=== PATIENT | female | born 1950 | race Caucasian/White ===

== ENCOUNTER 2023-08-22 09:24 | Outpatient (OUT) | payer MEDICARE, OTHER, SELFPAY ==
--- NOTE | 2023-08-22 09:32 | XR_ITS ---
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 FINDINGS: SPINE ANALYSIS: Average bone mineral density is 1.176 g/cm2. T-score (standard deviation relative to young adult mean): 0.0 . +3.8% change since prior study. HIP ANALYSIS: Lowest bone mineral density is within the right femoral neck, 0.884 g/cm2. T-score (standard deviation relative to young adult mean): -1.1 . +3.8% change since prior study. XR/XR DEXA axial skeleton IMPRESSION: World [employer] Organization Classification: Osteopenia - Moderate Fracture Risk Electronically authenticated by: CARITO BAY Date: 08/22/2023 10:25
--- NOTE | 2023-08-22 09:32 | MM_ITS ---
Patient: JOSE DAI Exam Date: 08/22/2023 : 1950 Gender:F Ordering : Non-Staff Physician Admission #: [id number] Family : Order #: [id number] CLICK HERE TO VIEW EXAM RADIOLOGY REPORT PROCEDURE: MM TOMOSYNTHESIS SCREENING BI COMPARISON: MG MAMM SCREEN 3D BRIANNE CAD, 08/09/2022. MG MAMM SCREEN 3D BRIANNE CAD, 05/25/2021. MG MAMM SCREEN BRIANNE W CAD, 05/19/2020. MG MAMM BRIANNE SCRN W CAD DIG, 11/19/2013. INDICATIONS: Screening Calculator Name NCI Breast Cancer Risk Assessment Tool 5 Year Breast Cancer Risk 1.40% Lifetime Breast Cancer Risk 3.40% Personal Breast Cancer No Personal Ovarian Cancer No Treatments None Family Cancers None LOCATION: [facility] BREAST COMPOSITION: Scattered areas fibroglandular density. FINDINGS: DIAGNOSTIC CATEGORY 2--BENIGN FINDING: RIGHT BREAST: No significant suspicious finding. Scattered benign-appearing nodules are present. No significant change has occurred. LEFT BREAST: No significant suspicious finding. Scattered benign-appearing nodules are present. No significant change has occurred. RECOMMENDATIONS: ROUTINE MAMMOGRAM AND CLINICAL EVALUATION IN 12 MONTHS. PLEASE NOTE: A NORMAL MAMMOGRAM DOES NOT EXCLUDE THE POSSIBILITY OF BREAST CANCER. A CLINICALLY SUSPICIOUS PALPABLE LUMP SHOULD BE BIOPSIED. Dictated by: Trent Bryan M.D. on 08/23/2023 at 10:10 Approved by: Trent Bryan M.D. on 08/23/2023 at 10:16
== END 2023-08-22 09:25 | disposition home or self-care (01) ==
LOC: MAMMO 09:24
DX: Z12.31 Encounter for screening mammogram for malignant neoplasm of breast (principal); M85.89 Other specified disorders of bone density and structure, multiple sites
CPT/HCPCS: 77063; 77067; 77080

== ENCOUNTER 2023-10-09 07:46 | Outpatient (RCR) | payer MEDICARE, OTHER, SELFPAY | END 2023-11-24 08:00 | disposition home or self-care (01) | LOC: PT 07:46 | DX: M76.61 Achilles tendinitis, right leg (principal) | CPT/HCPCS: 97110; 97112; 97140; 97162 ==

== ENCOUNTER 2024-05-11 06:50 | Outpatient (OUT) | payer MEDICARE, OTHER, SELFPAY ==
--- OUTSIDE RECORDS SUMMARY | 2024-05-11 06:52 | XMS_ITS | CCD ---
Author Organization [facility] Care Team Providers Care Manager Post Name Role Phone Rupa FINK Primary Care Physician Rupa Fink Primary Care Provider NOEMI Barajas Attending Provider [phone] Karl Dipti Unavailable RUPA FINK Primary Care Unavailable RUPA FINK Admitting Unavailable RUPA FINK Attending Unavailable RUPA FINK Consulting Unavailable RUPA FINK Primary Care Unavailable RUPA FINK Admitting Unavailable RUPA FINK Attending Unavailable RUPA FINK Consulting Unavailable RUPA FINK Primary Care Unavailable DR MARII HUSSEIN Consulting Unavailable RUPA FINK Admitting Unavailable RUPA FINK Attending Unavailable RUPA FINK Consulting Unavailable ALEKS, RUPA Primary Care Unavailable ISELA TINEO Admitting Unavailable ISELA TINEO Attending Unavailable Ellen Butt Primary Care Physician Dipti Barajas Attending Unavailable Karina Barajasgy Admitting Unavailable Ellen Butt Primary Care UnavailBello Holman MD Primary Care Provider FRANKIE VIVAR Attending Unavailable GIULIANO GARCIA Referring Unavailable GIULIANO GARCIA Attending Unavailable FRANKIE VIVAR Attending Unavailable GIULIANO GARCIA Attending Unavailable FRANKIE VIVAR Attending Unavailable FRANKIE VIVAR Attending Unavailable FRANKIE VIVAR Attending Unavailable Ellen Butt Attending Unavailab le Ellen Butt Attending Unavailab Ellen Bentley Attending Unavailab Isela Dominguez Attending Unavailable sIela Tineo Admitting Unavailable Ellen Butt Referring Unavailab yaquelin Daquan, Ellen Bonilla Admitting Unavailab le Ellen neri Attending Unavailab le Daquan, Ellen Bonilla Attending Unavailab le Misshalle, Ellen Bonilla Attending Unavailab le Missler, Ellen Bonilla Attending Unavailab le Allergies Allergy Classification Reported Allergen(s) Allergy Type Date of Onset Reaction(s) Facility (18 sources) Alendronate; Translations: [alendronate] Drug Allergy 10-02-2018 Weal (disorder), Cutaneous eruption (morphologic abnormality), Hives, Rash [facility] (2 sources) Alendronate; Translations: [alendronate sodium] Drug Allergy 10-02-2018 Redness of Skin [facility] Medications Current Medications Medication Drug Class(es) Dates Sig (Normalized) Sig (Original) acetaminophen 250 mg / aspirin 250 mg / caffeine 65 mg oral tablet (1 source) Platelet Aggregation Inhibitor, Nonsteroidal Anti-inflammatory Drug, Central Nervous System Stimulant, Methylxanthine Start: 10-02-2018 take 2 tablets by mouth every four to six hours Aspirin-Acetamino phen-Caffeine (Excedrin Extra Strength) 250-250-65 mg Tablet Active 2 TAB PO EVERY 4-6 HOURS October 02, 2018 1:00am ascorbic acid 60 mg / cholecalciferol 0.01 mg / folic acid 0.3 mg / niacin 13.5 mg / riboflavin 1.2 mg / sodium fluoride 0.55 mg / thiamine 1.05 mg / vitamin a 0.75 mg / vitamin b12 0.0045 mg / vitamin b6 1.05 mg / vitamin e 6.75 mg chewable tablet (3 sources) Nicotinic Acid, Vitamin A, Vitamin B12, Vitamin D, Vitamin C Pediatric Multivitamins-Fl (MultiVitamin + Fluoride) 0.25 MG chewable tablet Multivitamin 0 Active aspirin 325 mg delayed release oral tablet (12 sources) Platelet Aggregation Inhibitor, Nonsteroidal Anti-inflammatory Drug Start: 11-14-2020 take 1 tablet by mouth once daily as needed for pain aspirin 325 mg Oral EC Tab 325 mg = 1 tab(s), Oral, Daily, PRN as needed for pain Start Date: 11/14/20 Status: Ordered Start: 11-14-2020 take 1 tablet by leanna th once daily as needed for pain aspirin 325 mg Oral EC Tab 325 mg = 1 tab(s), Oral, Daily, PRN as needed for pain Start Date: 11/14/20 Status: Ordered atorvastatin 10 mg oral tablet (14 sources) HMG-CoA Reductase Inhibitor Start: 03-12-2022 End: 03-21-2024 take 1 tablet by mouth once daily atorvastatin 10 mg Tab 10 mg = 1 tab(s), Oral, Daily, X 90 day(s), # 90 tab(s), Refills(s) 3, Pharmacy: [facility]/pharmacy #[id number], 166, cm, 03/27/23 8:21:00 EDT, Height/Length Dosing, 116.1, kg, 03/27/23 8:21:00 EDT, Weight Dosing Start Date: 03/27/23 Stop Date: 03/21/24 Status: Ordered Atorvastatin Sonny cium Active bismuth subsalicylate (4 sources) Bismuth Start: 04-13-2019 Maalox Total S tomach Relief mg, Oral, QID, [id number] 5ML (Alum & Mag Hydroxide-Simeth) 2-4 tsps bid daily prn, Refills(s) 0 Start Date: 04/13/19 Status: Ordered Calcium (2 sources) Phosphate Binder, Calcium Calcium Active Calcium Carb-Cholecalciferol (CALCIUM + VITAMIN D3 PO) (3 sources) Calcium Carb-Cholecalciferol (CALCIUM + VITAMIN D3 PO) Calcium + Vitamin D3 0 Active calcium carbonate 1500 mg / cholecalciferol 200 unt oral capsule (16 sources) Vitamin D Start: 018 take 1 capsule by mouth once daily Calcium Carbonate-Vitamin D3 (Calcium 600 + D(3)) 600 mg calcium- 200 unit Capsule Active 1 CAP PO Daily October 02, 2018 1:00am Start: 10-17-2010 take 1 tablet by leanna th once daily calcium (as carbonate)-vitamin D 500 mg-200 intl units oral tablet 1 tab(s), Oral, Daily, Refill(s) 0 Start Date: 10/17/10 Status: Ordered Calcium Carb-Cho lecalciferol (Calcium + Vitamin D3) 500-10 MG-MCG chewable tablet Calcium + Vitamin D3 0 Active dexamethasone 1 mg/ml / tobramycin 3 mg/ml ophthalmic suspension (3 sources) Aminoglycoside Antibacterial, Corticosteroid Start: 08-08-2023 take 1 drop(s) into the eye(s) every three hours, then take 1 drop(s) into the eye(s) four times daily tobramycin-dexAMETHasone (Tobradex) ophthalmic suspension INSTILL 1 DROP INTO RIGHT EYE EVERY 3 HOURS FOR 1 DAYS THEN 1 DROP 4 TIMES A DAY 0 08/08/2023 Active famotidine 40 mg oral tablet (9 sources) Histamine-2 Receptor Antagonist Start: 04-24-2024 take 1 tablet by mouth once daily famotidine 40 mg Tab 40 mg = 1 tab(s), Oral, Daily, # 90 tab(s), Refills(s) 3, Pharmacy: [facility]/pharmacy #[id number], 162.6, cm, 04/08/24 10:22:00 EDT, Height/Length Dosing, 112.7, kg, 04/08/24 10:22:00 EDT, Weight Dosing Start Date: 04/24/24 Status: Ordered Start: 02-24-2024 take 1 tablet by leanna once daily famotidine 40 mg Tab 40 mg = 1 tab(s), Oral, Daily, # 90 tab(s), Refills(s) 3, Pharmacy: [facility]/pharmacy #[id number], 162.6, cm, 01/29/24 8:59:00 EST, Height/Length Dosing, 116.1, kg, 01/29/24 8:59:00 EST, Weight Dosing Start Date: 02/24/24 Status: Ordered Start: 10-23-2023 take 1 tablet by leanna th once daily famotidine 40 mg Tab 40 mg = 1 tab(s), Oral, Daily, # 90 tab(s), Refills(s) 1, Pharmacy: [facility]/pharmacy #[id number], 166, cm, 12/09/23 9:04:00 EST, Height/Length Dosing, 116.8, kg, 12/09/23 9:04:00 EST, Weight Dosing Start Date: 12/11/23 Status: Ordered Fish Oils (17 sources) Start: 10-31-2020 take 1 capsule by mo uth once daily Fish Oil 1200 mg oral capsule 1,200 mg = 1 cap(s), Oral, Daily, Prophylaxis Start Date: 10/31/20 Status: Ordered omega-3 (FISH OI L) 300 MG capsule Fish Oil 0 Active Fish Oil Active Glucosamine (14 sources) Start: 03-27-2023 Glucosamine HC l (GLUCOSAMINE PO) Refills(s) 0 0 03/27/2023 Active Start: 03-27-2023 glucosamine Re fills(s) 0 Start Date: 03/27/23 Status: Ordered Glucosamine 500 MG capsule Glucosamine 0 Active Glucosamine Chond MSM Formul a (2 sources) Glucosamine Volodymyr d MSM Formula Active ibuprofen 200 mg oral tablet (1 source) Nonsteroidal Anti-inflammatory Drug Start: 10-02-2018 Ibuprofen Active 2 TAB PO every 6 to 8 hours October 02, 2018 1:00am losartan potassium 25 mg oral tablet (18 sources) Angiotensin 2 Receptor Katia Start: 04-24-2024 take 1 tablet by mouth once daily losartan 25 mg Tab 25 mg = 1 tab(s), Oral, Daily, # 90 tab(s), Refills(s) 3, Pharmacy: [facility]/pharmacy #[id number], 162.6, cm, 04/08/24 10:22:00 EDT, Height/Length Dosing, 112.7, kg, 04/08/24 10:22:00 EDT, Weight Dosing Start Date: 04/24/24 Status: Ordered Start: 10-02-2018 End: 03-21-2024 take 1 tablet by mouth once daily losartan 25 mg Tab 25 mg = 1 tab(s), Oral, Daily, # 90 tab(s), Refills(s) 3, Pharmacy: [facility]/pharmacy #[id number], 162.6, cm, 01/29/24 8:59:00 EST, Height/Length Dosing, 116.1, kg, 01/29/24 8:59:00 EST, Weight Dosing Start Date: 02/24/24 Status: Ordered Losartan Potassi um Active Multiple Vitamin (MULTIVITAMIN ADULT PO) (3 sources) Multiple Vitamin (MULTIVITAMIN ADULT PO) Multivitamin 0 Active Kslrurtf-Hrb-Nbutk Acid-Vit K (Multi For Her 50 Plus) 400-80 mcg Capsule (1 source) Start: 10-02-20 18 take 50-400 capsules by mouth once daily Hywklshf-Qxp-Yfezb Acid-Vit K (Multi For Her 50 Plus) 400-80 mcg Capsule Active 1 CAP PO Daily October 02, 2018 1:00am Multivitamin, Therapeutic w/ Minerals (12 sources) Start: 10-17-20 10 take 1 tablet by mouth once daily Multivitamin, Therapeutic w/ Minerals 1 tab, Oral, Daily, Refill(s) 0 Start Date: 10/17/10 Status: Ordered omeprazole 40 mg delayed release oral capsule (18 sources) Proton Pump Inhibitor Start: 02-26-20 End: 06-06-20 24 take 1 capsule by mouth once daily omeprazole 40 mg Cap-DR 40 mg = 1 cap(s), Oral, Daily, # 90 cap(s), Refills(s) 4, Pharmacy: [facility]/pharmacy #[id number], 162.6, cm, 04/08/24 10:22:00 EDT, Height/Length Dosing, 112.7, kg, 04/08/24 10:22:00 EDT, Weight Dosing Start Date: 04/24/24 Status: Ordered Start: 04-02-2022 take 1 capsule by [facility] once daily omeprazole 40 mg Cap-DR 40 mg = 1 cap(s), Oral, Daily, # 90 cap(s), Refills(s) 3, Pharmacy: [facility]/pharmacy #[id number], 165, cm, 10/02/21 8:58:00 EST, Height/Length Dosing, 115, kg, 10/02/21 8:58:00 EST, Weight Dosing Start Date: 04/02/22 Status: Ordered Start: 10-02-2018 End: 10-02-2018 take 40 mg by mouth once daily Omeprazole Discontinued 40 MG PO Daily October 02, 2018 1:00am October 02, 2018 11:20am Start: 10-02-2018 take 80 mg by mouth once daily Omeprazole Active 80 MG PO Daily October 02, 2018 1:00am Omeprazole Activ e omeprazole 40 mg Cap-DR (1 source) Start: 04-02-2022 take 1 capsule by mouth once daily omeprazole 40 mg Cap-DR 40 mg = 1 cap(s), Oral, Daily, # 90 cap(s), Refills(s) 3, Pharmacy: [facility]/pharmacy #[id number], 165, cm, 10/02/21 8:58:00 EST, Height/Length Dosing, 115, kg, 10/02/21 8:58:00 EST, Weight Dosing Start Date: 04/02/22 Status: Ordered Completed/Discontinued Medications Medication Drug Class(es) Dates Sig (Normalized) Sig (Original) betamethasone 3 mg/ml / betamethasone acetate 3 mg/ml injectable suspension (8 sources) Corticosteroid Start: 12-27-2023 End: 12-27-2023 betamethasone acetate-betamethason e sodium phosphate (C[place]) injection 12 mg Multi Complete (2 sources) Multi Complete A ctive Problems Active Problems Problem Classification Problem Date Documented Da te Episodic/Chronic Aortic; peripheral; and visceral artery aneurysms (12 sources) Aneurysm of splenic artery 10-02-2021 Chronic Cataract (3 sources) 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; Translations: [Other secondary cataract, right eye] Onset: 3 05-07-2023 Chronic Congestive heart failure; nonhypertensive (7 sources) Diastolic dysfunction 04-19-2023 Chronic Diabetes mellitus without complication (20 sources) Prediabetes; Translations: [Prediabetes] Onset: 2 Episodic Disorders of lipid metabolism (16 sources) Hyperlipidemia; Translations: [Hyperlipidemia, unspecified] Onset: 2 Chronic Esophageal disorders (8 sources) Gastroesophageal reflux disease without esophagitis; Translations: [Gastro-esophageal reflux disease without esophagitis] Onset: 3 Chronic Essential hypertension (20 sources) Essential hypertension; Translations: [Essential (primary) hypertension] Onset: 1 Chronic Heart valve disorders (8 sources) Systolic murmur 03-27-2023 Episodic Hypertension with complications and secondary hypertension (4 sources) Hypertensive heart disease with heart failure; Translations: [HTN HEART DISEASE W/HEART FAIL] Onset: 2 Chronic Immunizations and screening for infectious disease (1 source) Viral screening status; Translations: [Encounter for screening for other viral diseases] Onset: 4 Episodic Nutritional deficiencies (15 sources) Vitamin D deficiency; Translations: [Vitamin D deficiency, unspecified] Onset: 2 Chronic Osteoarthritis (18 sources) Osteoarthritis; Translations: [Unspecified osteoarthritis, unspecified site] Onset: 2 Chronic Other aftercare (1 source) Long-term current use of drug therapy; Translations: [Other care home (current) drug therapy] Onset: 4 Episodic Other and ill-defined heart disease (1 source) Heart disease; Translations: [Other ill-defined heart diseases] Onset: 3 Chronic Other bone disease and musculoskeletal deformities (12 sources) Osteopenia 04-13-2019 Episodic Other diseases of veins and lymphatics (9 sources) Lymphedema; Translations: [Lymphedema, not elsewhere classified] Onset: 2 Chronic Other diseases of veins and lymphatics (4 sources) Lymphedema, not elsewhere classified; Translations: [LYMPHEDEMA NOT ELSEWHERE CLASSIFIED] Onset: 2 Chronic Other ear and sense organ disorders (1 source) Impacted cerumen in left ear; Translations: [Impacted cerumen, left ear] Onset: 4 Episodic Other ear and sense organ disorders (2 sources) Impacted cerumen 04-08-2024 Episodic Other gastrointestinal disorders (5 sources) Passing flatus; Translations: [Flatulence] Onset: 3 Episodic Other non-traumatic joint disorders (2 sources) Pain in left knee; Translations: [Pain of joint of knee] Onset: 2 Episodic Other nutritional; endocrine; and metabolic disorders (11 sources) Morbid obesity; Translations: [Morbid (severe) obesity due to excess calories] Onset: 2 Chronic Other nutritional; endocrine; and metabolic disorders (18 sources) Body mass index 40+ - severely obese; Translations: [Body mass index (BMI) 40.0-44.9, adult] Onset: 2 Chronic Other nutritional; endocrine; and metabolic disorders (6 sources) Obese class III 04-06-2020 Chronic Other nutritional; endocrine; and metabolic disorders (2 sources) Body mass index (BMI) 40.0-44.9, adult Chronic Other nutritional; endocrine; and metabolic disorders (1 source) Childhood obesity; Translations: [Body mass index (BMI) pediatric, greater than or equal to 95th percentile for age] Onset: 2 Episodic Other screening for suspected conditions (not mental disorders or infectious disease) (5 sources) Encounter for other screening for malignant neoplasm of breast; Translations: [Screening for malignant neoplasm done] Onset: 2 Episodic Other skin disorders (1 source) Disorder of skin pigmentation; Translations: [Disorder of pigmentation, unspecified] Onset: 2 Episodic Other skin disorders (4 sources) Discoloration of skin 04-10-2022 Episodic Peripheral and visceral atherosclerosis (4 sources) Peripheral vascular disease; Translations: [Peripheral vascular disease, unspecified] Onset: 2 Chronic Residual codes; unclassified (17 sources) Obstructive sleep apnea syndrome; Translations: [Obstructive sleep apnea (adult) (pediatric)] Onset: 2 Chronic Residual codes; unclassified (2 sources) Obstructive sleep apnea (adult) (pediatric) Chronic Residual codes; unclassified (1 source) Obstructive sleep apnea (adult)(pediatric); Translations: [Obstructive sleep apnea (adult) (pediatric)] Onset: 3 Chronic Residual codes; unclassified (1 source) Dependence on enabling machine or device; Translations: [Dependence on other enabling machines and devices] Onset: 4 Chronic Residual codes; unclassified (1 source) Localized edema; Translations: [Localized edema] Onset: 2 Episodic Residual codes; unclassified (4 sources) Bilateral lower limb edema 10-02-2021 Episodic Spondylosis; intervertebral disc disorders; other back problems (12 sources) Lumbar radiculopathy 04-13-2019 Episodic Unclassified (4 sources) Pain of knee region 04-10-2022 Unclassified (13 sources) Patient encounter status 04-06-2020 Unclassified (8 sources) Peripheral arterial disease 03-26-2023 Comment on above: noted in 06/21/2022 Vascular Consult Note. added per outpatient CDI policy. Past or Other Problems Problem Classification Problem Date Documented Da te Episodic/Chronic Other eye disorders (3 sources) Scar of cornea of right eye; Translations: [Unspecified corneal scar and opacity] Onset: 05-07-2023 05-07-2023 Episodic Results Test Name Value Interpretation Reference Range Facil ity Consent for Treatmenton 04-25 Consent for Treatment [id number] Normal [facility] Heart and Vascular Office/Cl inic Noteon 05-04-2024 Heart and Vascular Office/Clinic Note Chief Complaint PAD- Hasn't been seen since 05/2022 History of Present Illness This is a 72-year-old lady with bilateral lower extremity swelling and redness. The swelling involves the feet. The redness is from the knee down. She has skin thickening. She does not have any DVT or PE. She She has mild PAD. She has normal venous drainage system. She is started with the lymphedema clinic with significant improvement couple of years ago. She has not been going there recently. He continues to have symptoms with swelling and redness. I encouraged her to go back to the lymphedema clinic. I gave her referral. Review of Systems PHQ Score Initial Depression Screen Score: 0 SCORE Constitutional: no fever, no chills, no sweats, no weakness Skin: no Jaundice, no rash, no lesions, nopetechiae ENMT: no ear pain, no sore throat, no congestion, no hoarseness Respiratory: no shortness of breath, no cough, no orthopnea, no wheezing Cardiovascular: no chest pain, no palpitations, no edema Gastrointestinal: no nausea, no vomiting, no diarrhea, no GI bleeding Genitourinary: no dysuria, no hematuria, no discharge, no pain Musculoskeletal: no back pain, no trauma Neurologic: no headache, no dizziness, no numbness, no weakness Psychiatric: no sleeping problems, no irritability, no mood swings/depression. Heme/Lymph: no bleeding tendency, no bruising tendency, no petechiae, no swollen nodes Allergy/Immunologic : no seasonal allergies, no food allergies, no recurrent infections, no impaired immunity Additional ROS info: Except as noted in the above Review of Systems and in the History of Present Illness all other systems have been reviewed and are negative or noncontributory. Physical Exam Vitals & Measurements HR: 78(Peripheral) BP: 184/94 SpO2: 99% HT: 64 in HT: 162.6 cm WT: 113.4 kg WT: 249.48 lb BMI: 42.89 General: alert, no acute distress Skin: warm, dry Head: no trauma, normocephalic Neck: Trachea midline, no adenopathy, no tenderness Eye: normal conjunctiva, sclera clear Cardiovascular: regular rate and rhythm, normal peripheral perfusion Respiratory: Lungs CTA, respirations non labored Chest wall: no deformity. Gastrointestinal: soft, non distended, no tenderness, no guarding. Back: No tenderness, Normal ROM, Normal alignment. Extremities: no edema,no deformity, no trauma Neurological: oriented x 4, LOC appropriate for age, motor strength equal & normal bilaterally, sensation equal & normal bilaterally, speech normal Psychiatric: cooperative, affect appropriate for age, normal judgement, normal psychiatric thoughts. Assessment/Plan 1. Lymphedema (I89.0: Lymphedema, not elsewhere classified) Referral to the lymphedema clinic. Complex decongestive therapy. Weight loss and exercise. 2. Peripheral arterial disease (I73.9: Peripheral vascular disease, unspecified) Continue risk factors modification walking and exercise Follow-up No qualifying data available Problem List/Past Medical History Ongoing Benign hypertension BMI 40.0-44.9, adult Diastolic dysfunction without heart failure GERD (gastroesophageal reflux disease) Heart murmur, systolic Hyperlipidemia Left ear impacted cerumen Lumbar radiculopathy Lymphedema Morbid obesity Obstructive sleep apnea Osteopenia Peripheral arterial disease Prediabetes Routine adult health maintenance Vitamin D deficiency Historical Aneurysm of splenic artery Osteoarthritis Procedure/Surgical History Cataract extraction and insertion of intraocular lens (11/15/2020), Cataract extraction and insertion of intraocular lens (11/01/2020), Colonoscopy (06/11/2018). Medications aspirin 325 mg Oral EC Tab, 325 mg= 1 tab(s), Oral, Daily, PRN calcium (as carbonate)-vitamin D 500 mg-200 intl units oral tablet, 1 tab(s), Oral, Daily famotidine 40 mg Tab, 40 mg= 1 tab(s), Oral, Daily, 3 refills Fish Oil 1200 mg oral capsule, 1200 mg= 1 cap(s), Oral, Daily glucosamine losartan 25 mg Tab, 25 mg= 1 tab(s), Oral, Daily, 3 refills Multivitamin, Therapeutic w/ Minerals, 1 tab, Oral, Daily omeprazole 40 mg Cap-DR, 40 mg= 1 cap(s), Oral, Daily, 4 refills Allergies alendronate (Hives, Rash) Social History Alcohol - Denies Alcohol Use, 04/14/2019 Household alcohol concerns: No., 01/29/2024 Substance Abuse - Denies Substance Abuse, 04/14/2019 Household substance abuse concerns: No., 01/29/2024 Tobacco - Denies Tobacco Use, 04/01/2023 Never (less than 100 in lifetime) Tobacco Use:. Never Smokeless Tobacco Use:., 05/04/2024 Family History CAD (coronary artery disease): Father. Hypertension: Mother. Immunizations Vaccine Date Status Comments influenza virus vaccine, inactivated 08/01/2023 Recorded SARS-CoV-2 (COVID-19) [id number] 09/27/2022 Recorded 2023-10-22: TPV70 influenza virus vaccine, inactivated 09/13/2022 Recorded SARS-CoV-2 (COVID-19) mRNA-1273 vaccine 06/28/2022 Recorded 2023-10-22: TPV70 SARS-CoV-2 (COVID-19) mRNA-1273 v (more content not included)... [facility] Comment on above: Result Comment: Elec tronically Signed By: Noman ALLISON, Isela Johnson\.br\Date and Time Signed: 05/04/24 08:43 EDT Physician Orderon 05-04-2024 Physician Order [id number] [facility] Ambulatory Visit Summaryon 0 04-08-2024 Ambulatory Visit Summary SIMIN DAIJOAJITH Wallace :1950 Visit Date:04/08/2024 Ambulatory Visit Instructions Your Diagnosis Left ear impacted cerumen Routine adult health maintenance Benign hypertension Hyperlipidemia Prediabetes Peripheral arterial disease Vitamin D deficiency BMI 40.0-44.9, adult Morbid obesity Your Care Team Attending Physician - Ellen Carlos Primary Care Physician - Ellen Carlos This Is Your Medications List Contact prescribing physician if questions or concerns aspirin (aspirin 325 mg Oral EC Tab) calcium-vitamin D (calcium (as carbonate)-vitamin D 500 mg-200 intl units oral tablet) famotidine (famotidine 40 mg Tab) glucosamine losartan (losartan 25 mg Tab) multivitamin with minerals (Multivitamin, Therapeutic w/ Minerals) omega-3 polyunsaturated fatty acids (Fish Oil 1200 mg oral capsule) omeprazole (omeprazole 40 mg Cap-DR) Procedures Performed Cataract extraction and insertion of intraocular lens (11/15/2020), Cataract extraction and insertion of intraocular lens (11/01/2020), Colonoscopy (06/11/2018). Discharge Vitals Temperature (Oral) 36.1 ?C Heart Rate (Peripheral) 79 Blood Pressure 130/72 Height 162.6 cm Height 64 in Weight 112.7 kg Weight 247.94 lb BMI 42.63 What to do next Scheduled Follow-Up Appointments Saturday 8:00 AM EST With: Ellen Carlos Where: [facility] Primary Care Invalid Interpretation Code [address], [place] [address]- \.br\ You Need to Schedule the Following Appointments\.br\ Follow Up with Daquan Ellen GRANADOS When: In 6 months\.br\ Comments:\.br\ CCM\.br\ Where:\.br\ [address], [address]\ [place] [address].br\ \.br\ You Need to Complete the Following\.br\ Comprehensive Metabolic Panel, Blood, Routine collect, 04/08/24, Order for future visit, Lab Collect, Routine adult health maintenance [facility] Family Medicine Office/Clini c Noteon 04-08-2024 Family Medicine Office/Clinic Note Chief Complaint pt here for wellness. wants ears checked, feels plugged. HPI Staff Medicare wellness: utd Last routine labs: 01/26/24 smoker status: never Mammogram (qyr 45-54, q2yrs 55-75): utd colonoscopy/cologua rd (45-75yo): utd DEXA (F>65, M>70): utd History of Present Illness Jose is a 74 yo female presenting today for annual wellness Overall, patient reports feeling good but would like her ears checked as they feel plugged up Constitutional: no fever, no chills, no sweats, no weakness, no body aches, no changes in weight without trying. Skin: no rash, no skin lesions, no petechiae. Eyes: no eye irritation/pain, no eye drainage, no vision changes. Ears: no ear pain, no ear drainage, no itching, no tinnitus. Nose: no rhinorrhea, no nasal congestion. Throat: no pain, no hoarseness. Respiratory: no shortness of breath, no cough, no orthopnea, no wheezing. Cardiovascular: no chest pain, no palpitations, no edema. Gastrointestinal: no nausea, no vomiting, no diarrhea, no bleeding, no abdominal pain. Genitourinary: no dysuria, no hematuria, no frequency, no urgency, no hesitancy, no small amount void, no suprapubic pain, no flank pain. Musculoskeletal: no back pain, no joint pain, no trauma. Neurological: no headache, no dizziness, no numbness/tingling, no weakness. Psychiatric: no sleeping problems, irritabilty, mood swings/depression Heme/Lymph: no bleeding tendency, bruising tendency, petechia, swollen/tender nodes Allergy/immunologic : no seasonal allergies, food allergies, recurrent infection, impaired immunity Review of labs from 03/27/24: FB, A1c 5.8% Alk phos 108 - pt reports recently taking tylenol for her Achilles tendon pain TG 199 Vit D 27.7 Medical history includes: HTN Patient denies any CP, palpitations, SOB, acute injury/trauma, delirium, seizures, vision changes, nausea, vomiting, back pain, CARTY, dizziness or irritation at this time. Pt denies recent use of tobacco, decongestants/sudaf ed, albuterol, NSAIDs. Pt is taking medications as prescribed and is tolerating well. No med side effects. Currently taking: losartan 25mg qd Pt has hx of GERD Current medication regimen: Omeprazole 40mg/d and famotidine 40mg/d Pt denies burping, sour taste, reflux, cough at this time. Pt was started on PPI d/t hx of burning sensation in upper epigastric area that was worse after large meals, lying down or after exertion. Pt denies risk factors of smoking, EtOH use, NSAID use, anticholinergics, sedatives, calcium channel blockers. No hiatal hernia concerns. HLD - taking omega 3 1200mg qd and atorvastatin 10mg qd. Last FLP 03/27/24: WNL except TG 199 Osteopenia- calcium and Vit D supplements. Last DEXA 08/22/23 preDM - not taking medication. Hgb A1C %: 5.8 % (03/27/24 08:43:00) FBG 112 on 03/27/24 Health Maintenance: Routine labs: 03/27/24 colonoscopy/c[address] rd (45-75yo): not due yet Mammogram (qyr 45-54, q2yrs 55-85): not due yet, 08/22/23 DEXA (F>65, M>70): not due yet Specialists: Associate Director Of Nursing Dentist Review of Systems PHQ Score Initial Depression Screen Score: 0 SCORE Physical Exam Vitals & Measurements T: 36.1 ?C(Oral) HR: 79(Peripheral) BP: 130/72 SpO2: 97% HT: 64 in HT: 162.6 cm WT: 112.7 kg WT: 247.94 lb BMI: 42.63 General: Well developed, well nourished, in no acute distress Eyes: Bilateral PERRLA, conjunctivae and sclerae wnl, EOMs intact, lids without stye, chalazion, ect/extropion, ptosis, xanthelasma, blepharitis. No discharge to inner canthi.Negative for corneal abrasion or foreign bodies. Ears: grossly normal hearing Nose: No deformity, discharge, inflammation, or lesions. No congestion, no erythema; pink & moist turbinates; clear rhinorrhea. Mouth: mucous membranes pink, moist and intact. [place] posterior oropharynx, no palatal inflammation, uvula midline, no cobble-stoning, no enlarged tonsils, no tonsillar exudate, no ulcers, no active post nasal drip. tongue midline and wnl. Good dentition. Neck: Neck supple. No lymphadenopathy. Trachea midline. No thyroid, masses, tenderness, or enlargement noted. No bruit. Lungs: Normal respiratory effort and clear to auscultation Cardio: Regular rate and rhythm, normal S1 and S2, no murmur, no rub Abdomen: not assessed Musculoskeletal: No deformity or scoliosis noted. No vertebral tenderness. Normal range of motion. No vertebral point tenderness. Joints normal. No erythema, edema, effusion, crepitus, or ecchymosis. Straight leg raise negative Extremity: No clubbing, cyanosis, edema, or deformity. Normal ROM with upper and lower extremities, bilaterally. Neurologic: Cranial nerves II-XII grossly intact. motor strength equal & normal bilaterally, sensation equal & normal bilaterally. Gait normal. Skin: No rashes, ulcerations, or suspicious lesions Mental Status: Alert and oriented x3. Normal mood and affect Assessment/Plan 1. Left ear impacted cerumen (H61.22: Impacted cerumen, left ear) Earwax removal done (more content not included)... Normal [facility] Comment on above: Result Comment: Elec tronically Signed By: Missler INCLUSION TEACHER-Ellen Salmeron\.br\Date and Time Signed: 04/08/24 10:50 EDT Physician Referralon 024 Physician Referral [id number] 286#1.00TIFF Normal [facility] Consultation Noteon 04-03-20 24 Consultation Note [id number] E#1.00TIFF Normal [facility] CBC w/ Auto Diffon 4 Basophils/100 WBC (Bld) 1.0 % Normal 0.0-2.0 [facility] Comment on above: Performed By: #### 2 460169, 58481859, 177177941, 021681673, 8824013, 6327082 ####[facility] [address] [place] [address] Basophils/Leukocytes Auto (Bld) [Pure # fraction] 0.1 E9/L Normal 0.0-0.2 [facility] Comment on above: Performed By: #### 2 415645, 75961892, 515707561, 498947089, 5640474, 2320231 ####[facility] [address] [place] [address] Eosinophils (Bld) [#/Vol] 0.6 E9/L High 0.0-0.5 [facility] Comment on above: Performed By: #### 2 676360, 02246741, 476211164, 534167775, 3614078, 6230019 ####[facility] [address] [place] [address] Eosinophils/100 WBC (Bld) 7.2 % Normal 0.0-8.0 [facility] Comment on above: Performed By: #### 2 376614, 12789021, 598345690, 761814847, 1728375, 1600284 ####[facility] [address] [place] [address] Erythrocyte distribution width (RBC) [Ratio] 13.6 % Normal 10.9-14.2 [facility] Comment on above: Performed By: #### 2 190554, 34958077, 412514695, 028926663, 2679441, 3762371 ####[facility] [address] [place] [address] Hematocrit (Bld) [Volume fraction] 38.1 % Normal 34.0-46.0 [facility] Comment on above: Performed By: #### 2 493534, 17541910, 951120882, 338027552, 8217015, 3667021 ####[address] [address] Hemoglobin (Bld) [Mass/Vol] 12.7 g/dL Normal 12.0-16.0 [facility] Comment on above: Performed By: #### 2 339040, 14867722, 189511206, 334022276, 0712001, 5199725 ####[address] [address] Lymphocytes (Bld) [#/Vol] 1.6 E9/L Normal 1.0-4.0 [facility] Comment on above: Performed By: #### 2 722721, 12422752, 584535146, 979768229, 7061376, 6684614 ####[address] [address] Lymphocytes/100 WBC (Bld) 20.5 % Normal 14.0-50.0 [facility] Comment on above: Performed By: #### 2 679860, 05860745, 493522395, 478819132, 1510671, 9939771 ####[address] [address] MCH (RBC) [Entitic mass] 28.3 pg Normal 27.0-34.0 [facility] Comment on above: Performed By: #### 2 009227, 19083439, 871527465, 137311735, 3166403, 8057499 ####[address] [address] MCHC (RBC) [Mass/Vol] 33.3 g/dL Normal 31.4-36.0 [facility] Comment on above: Performed By: #### 2 230949, 32012808, 091972755, 685731386, 7097798, 0142629 ####[address] [place] [address] MCV (RBC) [Entitic vol] 85.0 fL Normal 80.0-100.0 [facility] Comment on above: Performed By: #### 2 432948, 09772766, 280205232, 682298732, 8637908, 5987520 ####[address] [address] Monocytes (Bld) [#/Vol] 0.9 E9/L Normal 0.2-1.0 [facility] Comment on above: Performed By: #### 2 062042, 97629635, 644575711, 770257368, 3467132, 9689217 ####[address] [address] Neutrophils (Bld) [#/Vol] 4.7 E9/L Normal 2.0-7.5 [facility] Comment on above: Performed By: #### 2 898524, 23011470, 976935622, 331260405, 4215213, 7058777 ####[address] [address] Neutrophils/100 WBC (Bld) 59.8 % Normal 36.0-75.0 [facility] Comment on above: Performed By: #### 2 024895, 81175247, 752096967, 225940508, 9460895, 0449171 ####[address] [place] [address] Platelet 196.0 E9/L Normal 150.0-500.0 [facility] Comment on above: Performed By: #### 2 562506, 48037956, 295094594, 156994531, 3371400, 1803220 ####[facility] [address] [place] [address] Platelet mean volume (Bld) [Entitic vol] 8.2 fL Normal 6.4-10.8 [facility] Comment on above: Performed By: #### 2 836773, 91567095, 087782414, 280662100, 8982336, 3033145 ####[facility] [address] [place] [address] RBC (Bld) [#/Vol] 4.5 E12/L Normal 4.3-5.9 [facility] Comment on above: Performed By: #### 2 554884, 65397538, 015259766, 840263014, 1997325, 1045466 ####[facility] [address] [place] [address] WBC corrected for nucl RBC Auto (Bld) [#/Vol] 7.8 E9/L Normal 4.0-11.0 [facility] Comment on above: Performed By: #### 2 072211, 37765420, 519254558, 214043267, 5144022, 3511907 ####[facility] [address] [place] [address] CHEMISTRYOrdered By: SYSTEM SYSTEM on 03-27-2024 25-hydroxyvitamin D3 [Mass/Vol] 27.7 ng/mL Low 30.0 - 100.0 ng/mL Remisol Chem Albumin [Mass/Vol] 4.1 g/dL Normal 3.3 - 5.0 gm/dL R emisol Chem Albumin/Globulin [Mass ratio] 1.5 {ratio} Normal 1.1 - 2.2 [facility] Chem ALP [Catalytic activity/Vol] 108 [iU]/d High 21 - 98 Int._Unit/L Remisol Chem ALT No additional P-5'-P [Catalytic activity/Vol] 31 [iU]/d Normal 6 - 46 Int._Unit/L [facility] Chem Anion gap [Moles/Vol] 13 mmol/L Normal 6 - 16 mEq/L [facility] Chem AST [Catalytic activity/Vol] 19 [iU]/d Normal 5 - 43 Int._Unit/L [facility] Chem Bilirubin [Mass/Vol] 0.4 mg/dL Normal 0.0 - 1.1 mg/dL [facility] Chem Calcium [Mass/Vol] 9.2 mg/dL Normal 8.9 - 11.1 mg/dL [facility] Chem Chloride [Moles/Vol] 106 mmol/L Normal 101 - 111 mmol/ L [facility] Chem Cholesterol [Mass/Vol] 140 mg/dL Normal 120 - 200 mg/dL [facility] Chem Cholesterol in HDL [Mass/Vol] 48 mg/dL Invalid Interpretation Code [facility] Comment on above: Result Comment: '>= 60 LOW RISK' '<= 40 HIGH RISK' Cholesterol in LDL [Mass/Vol] 69 mg/dL Normal <=129mg/dL [facility] Chem Cholesterol in VLDL [Mass/Vol] 40 mg/dL Normal 7 - 40 mg/dL [facility] Chem CO2 [Moles/Vol] 26 mmol/L Normal 21 - 31 mmol/L Remis ol Chem Creatinine [Mass/Vol] 0.8 mg/dL Normal 0.5 - 1.3 mg/dL [facility] Chem eGFR 77 mL/min/1.73 m2 Normal >=59mL/min /1.73 m2 [facility] Chem Globulin (S) [Mass/Vol] 2.7 g/dL Normal 1.4 - 4.0 gm/dL [facility] Chem Glucose [Mass/Vol] 112 mg/dL Normal 55 - 199 mg/dL Re misol Chem Potassium [Moles/Vol] 4.5 mmol/L Normal 3.5 - 5.3 mmol/L Remisol Chem Protein [Mass/Vol] 6.8 g/dL Normal 6.0 - 7.8 gm/dL R emisol Chem Sodium [Moles/Vol] 140 mmol/L Normal 135 - 145 mmol/L [facility] Chem Triglyceride [Mass/Vol] 199 mg/dL High <=149mg/dL [facility] Chem Urea nitrogen [Mass/Vol] 14 mg/dL Normal 5 - 21 mg/dL [facility] Chem Urea nitrogen/Creatinine [Mass ratio] 18 mg/mg Normal 10 - 20 Remisol Chem CHEMISTRYOrdered By: Jose Larose on 03-27-2024 HbA1c (Bld) [Mass fraction] 5.8 % Normal <=5.9% [facility] ChemAutoSS CMPon 03-27-2024 Albumin [Mass/Vol] 4.1 g/dL Normal 3.3-5.0 [facility] Comment on above: Performed By: #### 2 405201, 96171808, 085761768, 653346474, 3548048, 5872252 ####[facility] [address] [place] [address] Albumin/Globulin (S) [Mass conc ratio] 1.5 Normal 1.1-2.2 [facility] Comment on above: Performed By: #### 2 244075, 14902654, 503775727, 302804912, 8898480, 5951286 ####[facility] [address] [place] [address] ALP [Catalytic activity/Vol] 108 Int._Unit/L High 21-98 [facility] Comment on above: Performed By: #### 2 279612, 69009251, 187585771, 764369455, 0431515, 2335928 ####[facility] [address] [place] [address] ALT No additional P-5'-P [Catalytic activity/Vol] 31 Int._Unit/L Normal 6-46 [facility] Comment on above: Performed By: #### 2 764217, 84552237, 203557547, 749137338, 4503397, 2879988 ####[facility] [address] [place] [address] Anion gap [Moles/Vol] 13 mmol/L Normal 6-16 [facility] Comment on above: Performed By: #### 2 157743, 03897172, 699992451, 899322280, 3957029, 8630512 ####[facility] [address] [place] [address] AST [Catalytic activity/Vol] 19 Int._Unit/L Normal 5-43 [facility] Comment on above: Performed By: #### 2 461782, 62725481, 797777957, 972881278, 5150021, 7163295 ####[facility] [address] [place] [address] Bilirubin [Mass/Vol] 0.4 mg/dL Normal 0.0-1.1 [facility] Comment on above: Performed By: #### 2 559681, 85381784, 564593692, 333017902, 7191670, 1522828 ####[facility] [address] [place] [address] Calcium [Mass/Vol] 9.2 mg/dL Normal 8.9-11.1 [facility] Comment on above: Performed By: #### 2 452745, 82883812, 103447073, 548665648, 0286524, 4367472 ####[facility] [address] [place] [address] Chloride [Moles/Vol] 106 mmol/L Normal 101-111 [facility] Comment on above: Performed By: #### 2 999065, 06765567, 340082336, 865068431, 9929147, 7618858 ####[facility] [address] [place] [address] CO2 [Moles/Vol] 26 mmol/L Normal 21-[address] [facility] Comment on above: Performed By: #### 2 615462, 30641401, 391951467, 166972809, 0075305, 3898387 ####[facility] [address] [place] [address] Creatinine [Mass/Vol] 0.8 mg/dL Normal 0.5-1.3 [facility] Comment on above: Performed By: #### 2 246018, 26971769, 316663147, 209498723, 4484547, 6713351 ####[facility] [address] [place] [address] Globulin (S) [Mass/Vol] 2.7 g/dL Normal 1.4-4.0 [facility] Comment on above: Performed By: #### 2 575325, 22257323, 950303400, 860095391, 8308573, 0450550 ####[facility] [address] [place] [address] Glucose [Mass/Vol] 112 mg/dL Normal 55-199 [facility] Comment on above: Performed By: #### 2 771261, 18924720, 259022253, 425957429, 3180596, 6255049 ####[facility] [address] [place] [address] Potassium [Moles/Vol] 4.5 mmol/L Normal 3.5-5.3 [facility] Comment on above: Performed By: #### 2 340147, 68126584, 421364328, 395753686, 3922515, 3065785 ####[facility] [address] [place] [address] Protein [Mass/Vol] 6.8 g/dL Normal 6.0-7.8 [facility] Comment on above: Performed By: #### 2 508043, 24520012, 495925762, 714486028, 5567898, 7309869 ####[facility] [address] [place] [address] Sodium [Moles/Vol] 140 mmol/L Normal 135-145 [facility] Comment on above: Performed By: #### 2 482625, 14251252, 354652659, 092755634, 4659116, 8869927 ####[facility] [address] [place] [address] Urea nitrogen [Mass/Vol] 14 mg/dL Normal 5-21 [facility] Comment on above: Performed By: #### 2 219907, 40613088, 844440543, 604047655, 5592116, 6238715 ####[facility] [address] [place] [address] Urea nitrogen/Creatinine [Mass ratio] 18 No Units Normal 10-20 [facility] Comment on above: Performed By: #### 2 783031, 03491655, 047810640, 458035655, 6306144, 9627281 ####[facility] [address] [place] [address] Consent for Treatmenton Consent for Treatment [id number] 81#1.00TIFF Normal [facility] HEMATOLOGYOrdered By: SYSTEM SYSTEM on 03-27-2024 Basophils/100 WBC (Bld) 1.0 % Normal 0.0 - 2.0 % Remisol Heme Basophils/Leukocytes Auto (Bld) [Pure # fraction] 0.1 E9/L Normal 0.0 - 0.2 E9/L [facility] Heme Eosinophils (Bld) [#/Vol] 0.6 E9/L High 0.0 - 0.5 E9/L [facility] Heme Eosinophils/100 WBC (Bld) 7.2 % Normal 0.0 - 8.0 % [facility] Heme Erythrocyte distribution width (RBC) [Ratio] 13.6 % Normal 10.9 - 14.2 % [facility]e Hematocrit (Bld) [Volume fraction] 38.1 % Normal 34.0 - 46.0 % [facility] Heme Hemoglobin (Bld) [Mass/Vol] 12.7 g/dL Normal 12.0 - 16.0 gm/dL [facility] Heme Lymphocytes (Bld) [#/Vol] 1.6 E9/L Normal 1.0 - 4.0 E9/L [facility]e Lymphocytes/100 WBC (Bld) 20.5 % Normal 14.0 - 50.0 % [facility] Heme MCH (RBC) [Entitic mass] 28.3 pg Normal 27.0 - 34.0 pg Remisol Heme MCHC (RBC) [Mass/Vol] 33.3 g/dL Normal 31.4 - 36.0 gm/dL Rem[facility] Heme MCV (RBC) [Entitic vol] 85.0 fL Normal 80.0 - 100.0 fL Rem[facility] Heme Monocytes (Bld) [#/Vol] 0.9 E9/L Normal 0.2 - 1.0 E9/L [facility] Heme Monocytes/100 WBC (Bld) 11.5 % Normal 4.0 - 14.0 % [facility] Neutrophils (Bld) [#/Vol] 4.7 E9/L Normal 2.0 - 7.5 E9/L [facility]e Neutrophils/100 WBC (Bld) 59.8 % Normal 36.0 - 75.0 % [facility] Platelet 196.0 E9/L Normal 150.0 - 500.0 E9/L [facility] Heme Platelet mean volume (Bld) [Entitic vol] 8.2 fL Normal 6.4 - 10.8 fL Remisol Heme RBC (Bld) [#/Vol] 4.5 E12/L Normal 4.3 - 5.9 E12/L Re misol Heme WBC corrected for nucl RBC Auto (Bld) [#/Vol] 7.8 E9/L Normal 4.0 - 11.0 E9/L Remisol Heme [id number] 03-27-2024 HbA1c (Bld) [Mass fraction] 5.8 % Normal <=5.9 [facility] Comment on above: Performed By: #### 2 018298, 59737074, 788663219, 207821736, 8482374, 5019735 ####[facility] [address] [place] [address] Lipid Panelon 03-27-2024 Cholesterol [Mass/Vol] 140 mg/dL Normal 120-200 [facility] Comment on above: Performed By: #### 2 691893, 70649479, 680073164, 834629237, 7777487, 3452471 ####[facility] [address] [place] [address] Cholesterol in HDL [Mass/Vol] 48 mg/dL Invalid Interpretation Code [facility] Comment on above: Result Comment: '>= 60 LOW RISK' '<= 40 HIGH RISK' Performed By: #### 2 931789, 27253632, 355614892, 846270671, 7121200, 9076769 ####[facility] [address] [place] [address] Cholesterol in LDL [Mass/Vol] 69 mg/dL Normal <=129 [facility] Comment on above: Performed By: #### 2 172163, 93131385, 700423898, 643576506, 2027071, 8585169 ####[facility] [address] [place] [address] Cholesterol in VLDL [Mass/Vol] 40 mg/dL Normal 7-40 [facility] Comment on above: Performed By: #### 2 957648, 75026027, 352458572, 848078609, 8157828, 2226565 ####[facility] [address] [place] [address] Triglyceride [Mass/Vol] 199 mg/dL High <=149 [facility] Comment on above: Performed By: #### 2 143955, 68740029, 410046309, 009868342, 9872119, 9962152 ####[facility] [address] [place] [address] Physician Orderon 03-27-2024 Physician Order [id number] 13#1.00TIFF Normal [facility] Vitamin D 25 Hydroxyon 03-27 25-hydroxyvitamin D3 [Mass/Vol] 27.7 ng/mL Low 30.0-100.0 [facility] Comment on above: Performed By: #### 2 780731, 08272646, 341464893, 365579309, 3803215, 3073171 ####[facility] [address] [place] [address] eGFRon 03-27-2024 eGFR 77 mL/min/1.73 m2 Normal >=59 [facility] Comment on above: Order Comment: Order added by Discern Expert. Performed By: #### 2 001389, 55043132, 244307896, 745037349, 8186584, 3675151 ####[facility] [address] [place] [address] Patient Educationon 03-18-20 Patient Education Endocrinology Diabetes Mellitus and Nutrition, Adult When you have diabetes, or diabetes mellitus, it is very important to have healthy eating habits because your blood sugar (glucose) levels are greatly affected by what you eat and drink. Eating healthy foods in the right amounts, at about the same times every day, can help you: ? Manage your blood glucose. ? Lower your risk of heart disease. ? Improve your blood pressure. ? Reach or maintain a healthy weight. What can affect my meal plan? Every person with diabetes is different, and each person has different needs for a meal plan. Your health care provider may recommend that you work with a dietitian to make a meal plan that is best for you. Your meal plan may vary depending on factors such as: ? The calories you need. ? The medicines you take. ? Your weight. ? Your blood glucose, blood pressure, and cholesterol levels. ? Your activity level. ? Other health conditions you have, such as heart or kidney disease. How do carbohydrates affect me? Carbohydrates, also called carbs, affect your blood glucose level more than any other type of food. Eating carbs raises the amount of glucose in your blood. It is important to know how many carbs you can safely have in each meal. This is different for every person. Your dietitian can help you calculate how many carbs you should have at each meal and for each snack. How does alcohol affect me? Alcohol can cause a decrease in blood glucose (hypoglycemia), especially if you use insulin or take certain diabetes medicines by mouth. Hypoglycemia can be a life-threatening condition. Symptoms of hypoglycemia, such as sleepiness, dizziness, and confusion, are similar to symptoms of having too much alcohol. ? Do not drink alcohol if: ? Your health care provider tells you not to drink. ? You are , may be , or are planning to become . ? If you drink alcohol: ? Limit how much you have to: ? 0?1 drink a day for women. ? 0?2 drinks a day for men. ? Know how much alcohol is in your drink. In the [place] one drink equals one 12 oz bottle of beer (355 mL), one 5 oz glass of wine (148 mL), or one 1? oz glass of hard liquor (44 mL). ? Keep yourself hydrated with water, diet soda, or unsweetened iced tea. Keep in mind that regular soda, juice, and other mixers may contain a lot of sugar and must be counted as carbs. What are tips for following this plan? Reading food labels ? Start by checking the serving size on the Nutrition Facts label of packaged foods and drinks. The number of calories and the amount of carbs, fats, and other nutrients listed on the label are based on one serving of the item. Many items contain more than one serving per package. ? Check the total grams (g) of carbs in one serving. ? Check the number of grams of saturated fats and trans fats in one serving. Choose foods that have a low amount or none of these fats. ? Check the number of milligrams (mg) of salt (sodium) in one serving. Most people should limit total sodium intake to less than 2,300 mg per day. ? Always check the nutrition information of foods labeled as low-fat or nonfat. These foods may be higher in added sugar or refined carbs and should be avoided. ? Talk to your dietitian to identify your daily goals for nutrients listed on the label. Shopping ? Avoid buying canned, pre-made, or processed foods. These foods tend to be high in fat, sodium, and added sugar. ? Shop around the outside edge of the grocery store. This is where you will most often find fresh fruits and vegetables, bulk grains, fresh meats, and fresh dairy products. Cooking ? Use low-heat cooking methods, such as baking, instead of high-heat cooking methods, such as deep frying. ? Cook using healthy oils, such as olive, canola, or sunflower oil. ? Avoid cooking with butter, cream, or high-fat meats. Meal planning ? Eat meals and snacks regularly, preferably at the same times every day. Avoid going long periods of time without eating. ? Eat foods that are high in fiber, such as fresh fruits, vegetables, beans, and whole grains. ? Eat 4?6 oz (112?168 g) of lean protein each day, such as lean meat, chicken, fish, eggs, or tofu. One ounce (oz) (28 g) of lean protein is equal to: ? 1 oz (28 g) of meat, chicken, or fish. ? 1 egg. ? ? cup (62 g) of tofu. ? Eat some foods each day that contain healthy fats, such as avocado, nuts, seeds, and fish. What foods should I eat? Fruits Berries. Apples. Oranges. Peaches. Apricots. Plums. Grapes. Mangoes. Papayas. Pomegranates. Kiwi. Cherries. Vegetables Leafy greens, including lettuce, spinach, kale, chard, adama greens, mustard greens, and cabbage. Beets. Cauliflower. Broccoli. Carrots. Green beans. Tomatoes. Peppers. Onions. Cucumbers. [place] sprouts. Grains Whole grains, such as whole-wheat or whole-grain bread, crackers, tortillas, cereal, and pasta. Unsweetened oatmeal. (more content not included)... Normal [facility] Ambulatory Visit Summaryon 0 01-29-2024 Ambulatory Visit Summary SIMIN DAIFELICIA Wallace :1950 Visit Date:01/29/2024 Ambulatory Visit Instructions Your Diagnosis Annual visit for general adult medical examination without abnormal findings Prediabetes On statin therapy Peripheral arterial disease Dependence on other enabling machines and devices Encounter for hepatitis C screening test for low risk patient BMI 40.0-44.9, adult Morbid obesity Your Care Team Attending Physician - Ellen Carlos Primary Care Physician - Ellen Carlos This Is Your Medications List aspirin (aspirin 325 mg Oral EC Tab) atorvastatin (atorvastatin 10 mg Tab) calcium-vitamin D (calcium (as carbonate)-vitamin D 500 mg-200 intl units oral tablet) famotidine (famotidine 40 mg Tab) glucosamine losartan (losartan 25 mg Tab) multivitamin with minerals (Multivitamin, Therapeutic w/ Minerals) omega-3 polyunsaturated fatty acids (Fish Oil 1200 mg oral capsule) omeprazole (omeprazole 40 mg Cap-DR) Procedures Performed Cataract extraction and insertion of intraocular lens (11/15/2020), Cataract extraction and insertion of intraocular lens (11/01/2020), Colonoscopy (06/11/2018). Discharge Vitals Temperature (Oral) 36.7 ?C Heart Rate (Peripheral) 67 Blood Pressure 132/70 Height 162.56 cm Height 64 in Weight 116.1 kg Weight 255.42 lb BMI 43.93 What to do next Scheduled Follow-Up Appointments Saturday 8:00 AM EDT With: Daquan GRANADOS, Ellen Bonilla Where: [facility] Normal [address], [place] [address]- \.br\ You Need to Complete the Following\.br\ HCV Antibody RFX to Quant PCR, Blood, Routine collect, 01/29/24, Order for future visit, Lab Collect, Encounter for hepatitis C screening test for low risk patient, Not Required, Print Label By Order Location\.br\ Medications\.br\ What How Much When Why Instructions\.br\ Unchanged aspirin (aspirin 325 mg Oral EC Tab) 1 Tablets By Mouth Every day as needed for as needed for pain\.br\ Unchanged atorvastatin (atorvastatin 10 mg Tab) 1 Tablets By Mouth Every day Duration: 90 Days\.br\ Unchanged calcium-vitamin D (calcium (as carbonate)-vitami n D 500 mg-200 intl units oral tablet) 1 Tablets By Mouth Every day\.br\ Unchanged famotidine (famotidine 40 mg Tab) 1 Tablets By Mouth Every day GERD (gastroesophageal reflux disease)\.br\ Unchanged glucosamine\.br\ Unchanged losartan (losartan 25 mg Tab) 1 Tablets By Mouth Every day Duration: 90 Days\.br\ Unchanged multivitamin with minerals (Multivitamin, Therapeutic w/ Minerals) 1 tab By Mouth Every day\.br\ Unchanged omega-3 polyunsaturated fatty acids (Fish Oil 1200 mg oral capsule) 1 Capsules By Mouth Every day\.br\ Unchanged omeprazole (omeprazole 40 mg Cap-DR) 1 Capsules By Mouth Every day Duration: 90 Days\.br\ Allergies\.br\ alendronate (Hives, Rash)\.br\ Problems\.br\ Ongoing - Any problem that you are currently receiving treatment for.\.br\ Benign hypertension\.br\ BMI 40.0-44.9, adult\.br\ Diastolic dysfunction without heart failure\.br\ Flatulence\.br\ GERD (gastroesophageal reflux disease)\.br\ Heart murmur, systolic\.br\ Hyperlipidemia\.b r\ Lumbar radiculopathy\.br \ Lymphedema\.br\ Morbid obesity\.br\ Obstructive sleep apnea\.br\ Osteopenia\.br\ Peripheral arterial disease\.br\ Prediabetes\.br\ Vitamin D deficiency\.br\ Historical - Any problem that you are no longer receiving treatment for.\.br\ Aneurysm of splenic artery\.br\ Osteoarthritis\.b r\ Patient Survey\.br\ You may receive a survey via text or e-mail asking about your office visit. Please share your experience with us by completing your survey. We appreciate your feedback and thank you for choosing us for your care.\.br\ Education Materials\.br\ Prediabetes\.br\ Prediabetes is when your blood sugar (blood glucose) level is higher than normal but not high enough for you to be diagnosed with type 2 diabetes. Having prediabetes puts you at risk for developing type 2 diabetes (type 2 diabetes mellitus).\.br\ With certain lifestyle changes, you may be able to prevent or delay the onset of type 2 diabetes. This is important because type 2 diabetes can lead to serious complications, such as:\.br\ ? \.br\ Heart disease.\.br\ ? \.br\ Stroke.\.br\ ? \.br\ Blindness.\.br\ ? \.br\ Kidney disease.\.br\ ? \.br\ Depression.\.br\ ? \.br\ Poor circulation in the feet and legs. In severe cases, this could lead to surgical removal of a leg (amputation).\.br \ What are the causes?\.br\ The exact cause of prediabetes is not known. It may result from insulin resistance. Insulin resistance develops when cells in the body do not respond properly to insulin that the body makes. This can cause excess glucose to build up in the blood. High blood glucose (hyperglycemia) can develop.\.br\ What increases the risk?\.br\ The following factors may make you more likely to develop this condition:\.br\ ? \.br\ You have a family member with type 2 diabetes.\.br\ ? \.br\ You are older than 45 years.\.br\ ? \.br\ You had a temporary form of diabetes during a (gestational diabetes).\.br\ ? \.br\ You had polycystic ovary syndrome (PCOS).\.br\ ? \.br\ You are overweight or obese.\.br\ ? \.br\ You are inactive (sedentary).\.br\ ? \.br\ You have a history of heart disease, including problems with cholesterol levels, high levels of blood fats, or high blood pressure.\.br\ What are the signs or symptoms?\.br\ You may have no symptoms. If you do have symptoms, they may include:\.br\ ? \.br\ Increased hunger.\.br\ ? \.br\ Increased thirst.\.br\ ? \.br\ Increased urination.\.br\ ? \.br\ Vision changes, such as blurry vision.\.br\ ? \.br\ Tiredness (fatigue).\.br\ How is this diagnosed?\.br\ \.br\ This condition can be diagnosed with blood tests. Your blood glucose may be checked with one or more of the following tests:\.br\ ? \.br\ A fasting blood glucose (FBG) test. You will not be allowed to eat (you will fast) for at least 8 hours before a blood sample is taken.\.br\ ? \.br\ An A1C blood test (hemoglobin A1C). This test provides information about blood glucose levels over the previous 2?3 months.\.br\ ? \.br\ An oral glucose tolerance test (OGTT). This test measures your blood glucose at two points in time:\.br\ ? \.br\ After fasting. This is your baseline level.\.br\ ? \.br\ Two hours after you drink a beverage that contains glucose.\.br\ You may be diagnosed with prediabetes if:\.br\ ? \.br\ Your FBG is 100?125 mg/dL (5.6?6.9 mmol/L).\.br\ ? \.br\ Your A1C level is 5.7?6.4% (39?46 mmol/mol).\.br\ ? \.br\ Your OGTT result is 140?199 mg/dL (7.8?11 mmol/L).\.br\ These blood tests may be repeated to confirm your diagnosis.\.br\ How is this treated?\.br\ Treatment may include dietary and lifestyle changes to help lower your blood glucose and prevent type 2 diabetes from developing. In some cases, medicine may be prescribed to help lower the risk of type 2 diabetes.\.br\ Follow these instructions at home:\.br\ Nutrition\.br\ \.br\ ? \.br\ Follow a healthy meal plan. This includes eating lean proteins, whole grains, legumes, fresh fruits and vegetables, low-fat dairy products, and healthy fats.\.br\ ? \.br\ Follow instructions from your health care provider about eating or drinking restrictions.\.br \ ? \.br\ Meet with a dietitian to create a healthy eating plan that is right for you.\.br\ Lifestyle\.br\ ? \.br\ Do moderate-intensit y exercise for at least 30 minutes a day on 5 or more days each week, or as told by your health care provider. A mix of activities may be best, such as:\.br\ ? \.br\ Brisk walking, swimming, biking, and weight lifting.\.br\ ? \.br\ Lose weight as told by your health care provider. Losing 5?7% of your body weight can reverse insulin resistance.\.br\ ? \.br\ Do not drink alcohol if:\.br\ ? \.br\ Your health care provider tells you not to drink.\.br\ ? \.br\ You are , may be , or are planning to become .\.br\ ? \.br\ If you drink alcohol:\.br\ ? \.br\ Limit how much you use to:\.br\ ? \.br\ 0?1 drink a day for women.\.br\ ? \.br\ 0?2 drinks a day for men.\.br\ ? \.br\ Be aware of how much alcohol is in your drink. In the [place] one drink equals one 12 oz bottle of beer (355 mL), one 5 oz glass of wine (148 mL), or one 1? oz glass of hard liquor (44 mL).\.br\ General instructions\.br\ ? \.br\ Take mafo-gsj-yuqasir and prescription medicines only as told by your health care provider. You may be prescribed medicines that help lower the risk of type 2 diabetes.\.br\ ? \.br\ Do not use any products that contain nicotine or tobacco, such as cigarettes, e-cigarettes, and chewing tobacco. If you need help quitting, ask your health care provider.\.br\ ? \.br\ Keep all follow-up visits. This is important.\.br\ Where to find more information\.br\ ? [facility] Office/Clini c Noteon 01-29-2024 Family Medicine Office/Clinic Note Chief Complaint Subsequent Medicare Wellness Visit Review of Systems PHQ Score Initial Depression Screen Score: 0 SCORE Physical Exam Vitals & Measurements T: 36.7 ?C(Oral) HR: 67(Peripheral) BP: 132/70 SpO2: 97% HT: 162.56 cm HT: 64 in WT: 116.1 kg WT: 255.42 lb BMI: 43.93 Assessment/Plan 1. Annual visit for general adult medical examination without abnormal findings (Z00.00: Encounter for general adult medical examination without abnormal findings) The patient was given a customized and personalized print out of all the current AHRQ USPSTF?s recommendations for preventative services and all current CDC recommended immunizations, relevant risk recommendations and the following patient brochures were given. Reviewed Medicare Prevention Services checklist. CDC-Falls Prevention and home safety screening reviewed. Patient denies any falls in last 12 months, voices no worry about falling. Exhibits no problems with sitting, standing or ambulation. Patient aware with keeping walk way area free of clutter to prevent tripping and/or falling. [place] Advance Directives reviewed. Documents remain at home, encouraged to bring in for scanning into chart. Patient denies any problems with ADL?s and Instrumental ADL?s. Cognitive screening completed with memory and clock face drawing. No deficits noted. Immunization record reviewed, discussed Shingrix and COVID vaccines have been administered, with Boosters received. Allergies and medications reviewed and up to date. No concerns with taking medication as prescribed. Reviewed OTC medications, medication list up to date. Blood tests were reviewed: Discussed what tests need to be updated. Labs were ordered, to be completed with [facility]. No concerns with bowel/ bladder. Colonoscopy last completed 08/22/2023 with 10 year repeat. Reviewed pain symptoms : chronic back, legs and wrists, rates pain as a 4 out of 10, no pain medications taken. Reviewed all outside providers that patient follows. Last visit summary notes available in chart and/or have been requested. Patient declines any signs or symptoms of depression at this time. 8 minutes spent with screening and documentation. PHQ2 screening score 0. Patient denies alcohol use. Audit score 0. Follow up scheduled with PCP, 03/30/2024 AWV has been scheduled, 01/30/2024. 2. Prediabetes (R73.03: Prediabetes) Screened for type 2 diabetes. Risk score: 7. Patient is Prediabetic, BS stoplight reviewed, reminded to follow ADA dietary recommendations. Monitor portion control with carbs/fats/sat. fats. Will continue to follow up with labs as directed. 3. On statin therapy (Z79.899: Other salvage determiner (current) drug therapy) Patient encouraged to eat a diet that is low in saturated fats. Stressed importance of loosing weight as being overweight does produce more lipids. Patient does not drink alcohol and has never smoked. Risks may also increase with a family history of hyperlipidemia. Encouraged with healthy dietary choices to reduce risk factors associated with CVA. Will continue to follow up with labs as directed. 4. Peripheral arterial disease (I73.9: Peripheral vascular disease, unspecified) Patient continues with medications as ordered. Monitor for pulselessness, pain or pallor to legs. Encouraged with daily stretching, wear compression stockings and manage your stress levels. Will continue to follow up with PCP as directed. 5. Dependence on other enabling machines and devices (Z99.89: Dependence on other enabling machines and devices) Patient continues to wear cpap at night. States she is currently having some issues with c-pap. Will be following up with provider in the near future. 6. Encounter for hepatitis C screening test for low risk patient (Z11.59: Encounter for screening for other viral diseases) Discussed with patient the risk of Hepatitis C for people born between 1990-9959. Handout CDC-Hepatitis C given. Patient to have labs drawn for Hepatitis C screening based on year of . Will follow up with PCP as needed. 7. BMI 40.0-44.9, adult (Z68.41: Body mass index [BMI] 40.0-44.9, adult) The standard range for ages 18 and older is >18.5 and <25kg/m2. Your BMI today was 43.93, this falls into the morbid obesity range. BMI meaning contributes to your health with a greater risk for HTN, high cholesterol, body pain, stroke, heart disease, Type 2 DM and early . Your BMI and weight management will be followed with PCP visits. Encouraged with healthy nutritional choices and the importance with daily physical activity. 8. Morbid obesity (E66.01: Morbid (severe) obesity due to excess calories) Discussed weight loss benefits to dietary management and overall health with increased cardiovascular risks associated with waist measurement female>35 men>40.Reminded of importance to work on lowering current body weight with healthy dietary intake choices and portion control. Will continue to monitor during office visits with progress. Follow-up No qualifying data avai (more content not included)... Normal [facility] Comment on above: Result Comment: Elec tronically Signed By: Daquan GRANADOS, Ellen Bonilla\.br\Date and Time Signed: 01/29/24 12:22 EST\.br\Electronically Co-Signed By: Lilly Hoang LPN\.br\Date and Time Co-Signed: 01/29/24 11:56 EST Patient Educationon 01-29-20 Patient Education Endocrinology Prediabetes Prediabetes is when your blood sugar (blood glucose) level is higher than normal but not high enough for you to be diagnosed with type 2 diabetes. Having prediabetes puts you at risk for developing type 2 diabetes (type 2 diabetes mellitus). With certain lifestyle changes, you may be able to prevent or delay the onset of type 2 diabetes. This is important because type 2 diabetes can lead to serious complications, such as: ? Heart disease. ? Stroke. ? Blindness. ? Kidney disease. ? Depression. ? Poor circulation in the feet and legs. In severe cases, this could lead to surgical removal of a leg (amputation). What are the causes? The exact cause of prediabetes is not known. It may result from insulin resistance. Insulin resistance develops when cells in the body do not respond properly to insulin that the body makes. This can cause excess glucose to build up in the blood. High blood glucose (hyperglycemia) can develop. What increases the risk? The following factors may make you more likely to develop this condition: ? You have a family member with type 2 diabetes. ? You are older than 45 years. ? You had a temporary form of diabetes during a (gestational diabetes). ? You had polycystic ovary syndrome (PCOS). ? You are overweight or obese. ? You are inactive (sedentary). ? You have a history of heart disease, including problems with cholesterol levels, high levels of blood fats, or high blood pressure. What are the signs or symptoms? You may have no symptoms. If you do have symptoms, they may include: ? Increased hunger. ? Increased thirst. ? Increased urination. ? Vision changes, such as blurry vision. ? Tiredness (fatigue). How is this diagnosed? This condition can be diagnosed with blood tests. Your blood glucose may be checked with one or more of the following tests: ? A fasting blood glucose (FBG) test. You will not be allowed to eat (you will fast) for at least 8 hours before a blood sample is taken. ? An A1C blood test (hemoglobin A1C). This test provides information about blood glucose levels over the previous 2?3 months. ? An oral glucose tolerance test (OGTT). This test measures your blood glucose at two points in time: ? After fasting. This is your baseline level. ? Two hours after you drink a beverage that contains glucose. You may be diagnosed with prediabetes if: ? Your FBG is 100?125 mg/dL (5.6?6.9 mmol/L). ? Your A1C level is 5.7?6.4% (39?46 mmol/mol). ? Your OGTT result is 140?199 mg/dL (7.8?11 mmol/L). These blood tests may be repeated to confirm your diagnosis. How is this treated? Treatment may include dietary and lifestyle changes to help lower your blood glucose and prevent type 2 diabetes from developing. In some cases, medicine may be prescribed to help lower the risk of type 2 diabetes. Follow these instructions at home: Nutrition ? Follow a healthy meal plan. This includes eating lean proteins, whole grains, legumes, fresh fruits and vegetables, low-fat dairy products, and healthy fats. ? Follow instructions from your health care provider about eating or drinking restrictions. ? Meet with a dietitian to create a healthy eating plan that is right for you. Lifestyle ? Do moderate-intensity exercise for at least 30 minutes a day on 5 or more days each week, or as told by your health care provider. A mix of activities may be best, such as: ? Brisk walking, swimming, biking, and weight lifting. ? Lose weight as told by your health care provider. Losing 5?7% of your body weight can reverse insulin resistance. ? Do not drink alcohol if: ? Your health care provider tells you not to drink. ? You are , may be , or are planning to become . ? If you drink alcohol: ? Limit how much you use to: ? 0?1 drink a day for women. ? 0?2 drinks a day for men. ? Be aware of how much alcohol is in your drink. In the [place] one drink equals one 12 oz bottle of beer (355 mL), one 5 oz glass of wine (148 mL), or one 1? oz glass of hard liquor (44 mL). General instructions ? Take hndj-ctj-hmfjkua and prescription medicines only as told by your health care provider. You may be prescribed medicines that help lower the risk of type 2 diabetes. ? Do not use any products that contain nicotine or tobacco, such as cigarettes, e-cigarettes, and chewing tobacco. If you need help quitting, ask your health care provider. ? Keep all follow-up visits. This is important. Where to find more information ? [place] [employer]: www.diabetes.org ? Academy of Nutrition and Dietetics: www.eatright.org ? [place] [employer]: www.heart.org Contact a health care provider if: ? You have any of these symptoms: ? Increased hunger. ? Increased urination. ? Increased thirst. ? Fatigue. ? Vision changes, such as blurry vision. Get help right away i (more content not included)... Normal [facility] Screenson 01-29-2024 Screens [id number]#[id number] [facility] Consultation Noteon 12-29-19 24 Consultation Note [id number] 04#[id number] [facility] No Panel Informationon 12-27 Harper Flores 12/27/2023 2:10 PM L Inj/Asp: bilateral knee on 12/27/2023 9:02 AM Indications: pain Details: 25 G needle Medications (Right): 12 mg betamethasone acetate-betamethaso ne sodium phosphate 6 (3-3) MG/ML Medications (Left): 12 mg betamethasone acetate-betamethaso ne sodium phosphate 6 (3-3) MG/ML Consent was given by the patient. [facility] Radiology Study observation (narrative) [facility] XR Knee - left 3 [facility] Result: Bilateral standing PA, bilateral sunrise, and lateral of the affected knee were imaged today in the office. Patient has bilateral medial compartments [id number] as well as patellofemoral disease no evidence of acute fracture or bony tumor seen. [facility] XR Knee - right 3 [facility] Result: Bilateral standing PA, bilateral sunrise, and lateral of the affected knee were imaged today in the office. Patient has bilateral medial compartments [id number]-sk-lklf as well as patellofemoral disease no evidence of acute fracture or bony tumor seen. [facility] Ambulatory Visit Summaryon 0 12-09-2023 Ambulatory Visit Summary SIMIN DAIJORIE Rodrigo :1950 Visit Date:12/09/2023 Ambulatory Visit Instructions Your Diagnosis Flatulence GERD (gastroesophageal reflux disease) Morbid obesity BMI 40.0-44.9, adult Your Care Team Attending Physician - Ellen Carlos Primary Care Physician - Ellen Carlos This Is Your Medications List aspirin (aspirin 325 mg Oral EC Tab) atorvastatin (atorvastatin 10 mg Tab) calcium-vitamin D (calcium (as carbonate)-vitamin D 500 mg-200 intl units oral tablet) famotidine (famotidine 40 mg Tab) glucosamine losartan (losartan 25 mg Tab) multivitamin with minerals (Multivitamin, Therapeutic w/ Minerals) omega-3 polyunsaturated fatty acids (Fish Oil 1200 mg oral capsule) omeprazole (omeprazole 40 mg Cap-DR) Procedures Performed Cataract extraction and insertion of intraocular lens (11/15/2020), Cataract extraction and insertion of intraocular lens (11/01/2020), Colonoscopy (06/11/2018). Discharge Vitals Temperature (Oral) 36.4 ?C Heart Rate (Peripheral) 63 Blood Pressure 138/76 Height 166 cm Height 65 in Weight 116.8 kg Weight 256.96 lb BMI 42.39 What to do next Scheduled Follow-Up Appointments Saturday 8:00 AM EST With: Where: [facility] Normal [address], [place] [address]- \.br\ You Need to Schedule the Following Appointments\.br\ Follow Up with Ellen Carlos When: In 6 months\.br\ Comments:\.br\ CCM\.br\ Where:\.br\ [address], [address]\ [place] [address]-\.br\ \.br\ Medications\.br\ What How Much When Why Instructions\.br\ Unchanged aspirin (aspirin 325 mg Oral EC Tab) 1 Tablets By Mouth Every day as needed for as needed for pain\.br\ Unchanged atorvastatin (atorvastatin 10 mg Tab) 1 Tablets By Mouth Every day Duration: 90 Days\.br\ Unchanged calcium-vitamin D (calcium (as carbonate)-vitami n D 500 mg-200 intl units oral tablet) 1 Tablets By Mouth Every day\.br\ Unchanged famotidine (famotidine 40 mg Tab) 1 Tablets By Mouth Every day GERD (gastroesophageal reflux disease) Pickup at [facility]/pharmacy #[id number]\.br\ Unchanged glucosamine\.br\ Unchanged losartan (losartan 25 mg Tab) 1 Tablets By Mouth Every day Duration: 90 Days\.br\ Unchanged multivitamin with minerals (Multivitamin, Therapeutic w/ Minerals) 1 tab By Mouth Every day\.br\ Unchanged omega-3 polyunsaturated fatty acids (Fish Oil 1200 mg oral capsule) 1 Capsules By Mouth Every day\.br\ Unchanged omeprazole (omeprazole 40 mg Cap-DR) 1 Capsules By Mouth Every day Duration: 90 Days Pickup at [facility]/pharmacy #[id number]\.br\ Pharmacy Information\.br\ [facility]/pharmacy #[id number]: [address] [place], [place] [id number] [phone]\.br\ Allergies\.br\ alendronate (Hives, Rash)\.br\ Problems\.br\ Ongoing - Any problem that you are currently receiving treatment for.\.br\ Benign hypertension\.br\ BMI 40.0-44.9, adult\.br\ Diastolic dysfunction without heart failure\.br\ Flatulence\.br\ GERD (gastroesophageal reflux disease)\.br\ Heart murmur, systolic\.br\ Hyperlipidemia\.b r\ Lumbar radiculopathy\.br \ Lymphedema\.br\ Morbid obesity\.br\ Obstructive sleep apnea\.br\ Osteopenia\.br\ Peripheral arterial disease\.br\ Prediabetes\.br\ Vitamin D deficiency\.br\ Historical - Any problem that you are no longer receiving treatment for.\.br\ Aneurysm of splenic artery\.br\ Osteoarthritis\.b r\ Patient Survey\.br\ You may receive a survey via text or e-mail asking about your office visit. Please share your experience with us by completing your survey. We appreciate your feedback and thank you for choosing us for your care.\.br\ Education Materials\.br\ Heartburn\.br\ Heartburn is a type of pain or discomfort that can happen in the throat or chest. It is often described as a burning pain. It may also cause a bad, acid-like taste in the mouth. Heartburn may feel worse when you lie down or bend over, and it is often worse at night. Heartburn may be caused by stomach contents that move back up into the esophagus (reflux).\.br\ Follow these instructions at home:\.br\ Eating and drinking\.br\ \.br\ ? \.br\ Avoid certain foods and drinks as told by your health care provider. This may include:\.br\ ? \.br\ Coffee and tea, with or without caffeine.\.br\ ? \.br\ Drinks that contain alcohol.\.br\ ? \.br\ Energy drinks and sports drinks.\.br\ ? \.br\ Carbonated drinks or sodas.\.br\ ? \.br\ Chocolate and cocoa.\.br\ ? \.br\ Peppermint and mint flavorings.\.br\ ? \.br\ Garlic and onions.\.br\ ? \.br\ Horseradish.\.br\ ? \.br\ Spicy and acidic foods, including peppers, chili powder, carlson powder, vinegar, hot sauces, and barbecue sauce.\.br\ ? \.br\ [place] fruit juices and citrus fruits, such as oranges, crystal, and limes.\.br\ ? \.br\ Tomato-based foods, such as red sauce, chili, salsa, and pizza with red sauce.\.br\ ? \.br\ Fried and fatty foods, such as donuts, indonesian fries, potato chips, and high-fat dressings.\.br\ ? \.br\ High-fat meats, such as hot dogs and fatty cuts of red and white meats, such as rib eye steak, sausage, ham, and quintana.\.br\ ? \.br\ High-fat dairy items, such as whole milk, butter, and cream cheese.\.br\ ? \.br\ Eat small, frequent meals instead of large meals.\.br\ ? \.br\ Avoid drinking large amounts of liquid with your meals.\.br\ ? \.br\ Avoid eating meals during the 2?3 hours before bedtime.\.br\ ? \.br\ Avoid lying down right after you eat.\.br\ ? \.br\ Do not exercise right after you eat.\.br\ Lifestyle\.br\ \.br\ \.br\ ? \.br\ If you are overweight, reduce your weight to an amount that is healthy for you. Ask your health care provider for guidance about a safe weight loss goal.\.br\ ? \.br\ Do not use any products that contain nicotine or tobacco. These products include cigarettes, chewing tobacco, and vaping devices, such as e-cigarettes. These can make symptoms worse. If you need help quitting, ask your health care provider.\.br\ ? \.br\ Wear loose-fitting clothing. Do not wear anything tight around your waist that causes pressure on your abdomen.\.br\ ? \.br\ Raise (elevate) the head of your bed about 6 inches (15 cm) when you sleep. You can use a wedge to do this.\.br\ ? \.br\ Try to reduce your stress, such as with yoga or meditation. If you need help reducing stress, ask your health care provider.\.br\ Medicines\.br\ ? \.br\ Take rxja-dfv-llodfui and prescription medicines only as told by your health care provider.\.br\ ? \.br\ Do not take aspirin or NSAIDs, such as ibuprofen, unless your health care provider told you to do so.\.br\ ? \.br\ Stop medicines only as told by your health care provider. If you stop taking some medicines too quickly, your symptoms may get worse.\.br\ General instructions\.br\ ? \.br\ Pay attention to any changes in your symptoms.\.br\ ? \.br\ Keep all follow-up visits. This is important.\.br\ Contact a health care provider if:\.br\ ? \.br\ You have new symptoms.\.br\ ? \.br\ You have unexplained weight loss.\.br\ ? \.br\ You have difficulty swallowing, or it hurts to swallow.\.br\ ? \.br\ You have wheezing or a persistent cough.\.br\ ? \.br\ Your symptoms do not improve with treatment.\.br\ ? \.br\ You have frequent heartburn for more than 2 weeks.\.br\ Get help right away if:\.br\ ? \.br\ You suddenly have pain in your arms, neck, jaw, teeth, or back.\.br\ ? \.br\ You suddenly feel sweaty, dizzy, or light-headed.\.br \ ? \.br\ You have chest pain or shortness of breath.\.br\ ? \.br\ You vomit and your vomit looks like blood or coffee grounds.\.br\ ? \.br\ Your stool is bloody or black.\.br\ These symptoms may represent a serious problem that is an emergency. Do not wait to see if the symptoms will go away. Get medical help right away. Call your local emergency services (911 in the [place] Do not drive yourself to the hospital.\.br\ Summary\.br\ ? \.br\ Heartburn is a type of pain or discomfort that can happen in the throat or chest. It is often described as a burning pain. It may also cause a bad, acid-like taste in the mouth.\.br\ ? \.br\ Avoid certain foods and drinks as told by your health care provider.\.br\ ? \.br\ Take dioy-yzk-jpvojas and prescription medicines only as told by your health care provider. Do not take aspirin or NSAIDs, such as ibuprofen, unless your health care provider told you to do so.\.br\ ? \.br\ Contact a health care provider if your symptoms do not improve or they get worse.\.br\ This information is not intended to replace advice given to you by your health care p [facility] Office/Clini c Noteon 12-09-2023 Family Medicine Office/Clinic Note Chief Complaint pt here for 1 month f/u. HPI Staff Medicare wellness: utd Last routine labs: 03/27/23 smoker status: never Mammogram (qyr 45-54, q2yrs 55-75): utd colonoscopy/cologua rd (45-75yo): utd DEXA (F>65, M>70): due- ordered flu vaccine status: utd covid vaccine: utd History of Present Illness Jose is a 73 yo female presenting today for 1 mo f/u Flatulence Overall, pt reports feeling less gassy/flatulent since starting a daily probiotic and following the low FODMAP diet. Famotidine 40mg/d has improved her GERD sx as well GERD Current medication regimen: Omeprazole 40mg/d and famotidine 40mg/d Pt denies burping, sour taste, reflux, cough at this time. Pt denies risk factors of smoking, EtOH use, NSAID use, anticholinergics, sedatives, calcium channel blockers. No hiatal hernia concerns. Medical history includes: Patient has high blood pressure. Patient denies any CP or SOB, acute injury/trauma, delirium, seizures, vision changes, nausea, vomiting, back pain, CARTY, dizziness or irritation at this time. Pt denies recent use of tobacco, decongestants/sudaf ed, albuterol, NSAIDs. Pt is taking medications as prescribed and is tolerating well. No med side effects. Currently taking: losartan 25mg qd HLD - omega 3 1200mg qd and atorvastatin 10mg qd Osteopenia- calcium and Vit D supplements. Due for repeat DEXA preDM - not taking medication. Hgb A1C %: 6 % High (03/27/23 09:45:00) Review of Systems PHQ Score Initial Depression Screen Score: 0 SCORE Physical Exam Vitals & Measurements T: 36.4 ?C(Oral) HR: 63(Peripheral) BP: 138/76 SpO2: 98% HT: 65 in HT: 166 cm WT: 116.8 kg WT: 256.96 lb BMI: 42.39 General: Well developed, well nourished, in no acute distress Eyes: Bilateral PERRLA, conjunctivae and sclerae wnl, EOMs intact, lids without stye, chalazion, ect/extropion, ptosis, xanthelasma, blepharitis. No discharge to inner canthi.Negative for corneal abrasion or foreign bodies. Ears: grossly normal hearing Nose: No deformity, discharge, inflammation, or lesions. No congestion, no erythema; pink & moist turbinates; clear rhinorrhea. Mouth: mucous membranes pink, moist and intact. [place] posterior oropharynx, no palatal inflammation, uvula midline, no cobble-stoning, no enlarged tonsils, no tonsillar exudate, no ulcers, no active post nasal drip. tongue midline and wnl. Good dentition. Neck: Neck supple. No lymphadenopathy. Trachea midline. No thyroid, masses, tenderness, or enlargement noted. No bruit. Lungs: Normal respiratory effort and clear to auscultation Cardio: Regular rate and rhythm, normal S1 and S2, no murmur, no rub Abdomen: not assessed Musculoskeletal: No deformity or scoliosis noted. No vertebral tenderness. Normal range of motion. No vertebral point tenderness. Joints normal. No erythema, edema, effusion, crepitus, or ecchymosis. Straight leg raise negative Extremity: No clubbing, cyanosis, edema, or deformity. Normal ROM with upper and lower extremities, bilaterally. Neurologic: Cranial nerves II-XII grossly intact. motor strength equal & normal bilaterally, sensation equal & normal bilaterally. Gait normal. Skin: No rashes, ulcerations, or suspicious lesions Mental Status: Alert and oriented x3. Normal mood and affect Assessment/Plan 1. Flatulence (R14.3: Flatulence) continue daily probiotic and follow low FODMAP diet f/u PRN 2. GERD (gastroesophageal reflux disease) (K21.9: Gastro-esophageal reflux disease without esophagitis) stable chronic continue Omeprazole 40mg/d and famotidine 40mg/d Encouraged to avoid large/late meals, hot/spicy foods, tight fitting clothing, excessive caffeine consumption and use of tobacco products. Weight reduction may also be beneficial. Reviewed potential side effects of long-term use of PPIs including electrolyte imbalances, osteoporosis and C. difficile. Pt verbalized understanding f/u PRN Ordered: famotidine, 40 mg = 1 tab(s), Oral, Daily, # 90 tab(s), Refills(s) 1, Pharmacy: [facility]/pharmacy #[id number], 166, cm, 12/09/23 9:04:00 EST, Height/Length Dosing, 116.8, kg, 12/09/23 9:04:00 EST, Weight Dosing 3. Morbid obesity (E66.01: Morbid (severe) obesity due to excess calories) Reviewed importance of making a lifestyle change regarding dietary choices. Discussed goals. Encouraged routine cardio exercise with Goal: 3-5x/week for 30-45 minutes. Start out slow and increase to achieve your goals. Avoid late night snacking, do not skip breakfast and monitor cooking habits/avoid fast food and fried/fatty foods. Will monitor for progress. 4. BMI 40.0-44.9, adult (Z68.41: Body mass index [BMI] 40.0-44.9, adult) The standard range for ages 18 and older is >=18.5 and < 25 kg/m2. Your BMI today was above this range, this falls in the overweight to obese category and there are medical benefits to weight loss. We can offer counselling, referral, and/or medical support in addressing this problem. Your BMI and weight management will be followed at [facility] (more content not included)... Normal [facility] Comment on above: Result Comment: Elec tronically Signed By: Daquan GRANADOS, Ellen Bonilla\.br\Date and Time Signed: 12/09/23 09:27 EST Patient Educationon 11-23-20 23 Patient Education Gastroenterology Heartburn Heartburn is a type of pain or discomfort that can happen in the throat or chest. It is often described as a burning pain. It may also cause a bad, acid-like taste in the mouth. Heartburn may feel worse when you lie down or bend over, and it is often worse at night. Heartburn may be caused by stomach contents that move back up into the esophagus (reflux). Follow these instructions at home: Eating and drinking ? Avoid certain foods and drinks as told by your health care provider. This may include: ? Coffee and tea, with or without caffeine. ? Drinks that contain alcohol. ? Energy drinks and sports drinks. ? Carbonated drinks or sodas. ? Chocolate and cocoa. ? Peppermint and mint flavorings. ? Garlic and onions. ? Horseradish. ? Spicy and acidic foods, including peppers, chili powder, carlson powder, vinegar, hot sauces, and barbecue sauce. ? [place] fruit juices and citrus fruits, such as oranges, crystal, and limes. ? Tomato-based foods, such as red sauce, chili, salsa, and pizza with red sauce. ? Fried and fatty foods, such as donuts, indonesian fries, potato chips, and high-fat dressings. ? High-fat meats, such as hot dogs and fatty cuts of red and white meats, such as rib eye steak, sausage, ham, and quintana. ? High-fat dairy items, such as whole milk, butter, and cream cheese. ? Eat small, frequent meals instead of large meals. ? Avoid drinking large amounts of liquid with your meals. ? Avoid eating meals during the 2?3 hours before bedtime. ? Avoid lying down right after you eat. ? Do not exercise right after you eat. Lifestyle ? If you are overweight, reduce your weight to an amount that is healthy for you. Ask your health care provider for guidance about a safe weight loss goal. ? Do not use any products that contain nicotine or tobacco. These products include cigarettes, chewing tobacco, and vaping devices, such as e-cigarettes. These can make symptoms worse. If you need help quitting, ask your health care provider. ? Wear loose-fitting clothing. Do not wear anything tight around your waist that causes pressure on your abdomen. ? Raise (elevate) the head of your bed about 6 inches (15 cm) when you sleep. You can use a wedge to do this. ? Try to reduce your stress, such as with yoga or meditation. If you need help reducing stress, ask your health care provider. Medicines ? Take nche-zww-worshqg and prescription medicines only as told by your health care provider. ? Do not take aspirin or NSAIDs, such as ibuprofen, unless your health care provider told you to do so. ? Stop medicines only as told by your health care provider. If you stop taking some medicines too quickly, your symptoms may get worse. General instructions ? Pay attention to any changes in your symptoms. ? Keep all follow-up visits. This is important. Contact a health care provider if: ? You have new symptoms. ? You have unexplained weight loss. ? You have difficulty swallowing, or it hurts to swallow. ? You have wheezing or a persistent cough. ? Your symptoms do not improve with treatment. ? You have frequent heartburn for more than 2 weeks. Get help right away if: ? You suddenly have pain in your arms, neck, jaw, teeth, or back. ? You suddenly feel sweaty, dizzy, or light-headed. ? You have chest pain or shortness of breath. ? You vomit and your vomit looks like blood or coffee grounds. ? Your stool is bloody or black. These symptoms may represent a serious problem that is an emergency. Do not wait to see if the symptoms will go away. Get medical help right away. Call your local emergency services (911 in the [place] Do not drive yourself to the hospital. Summary ? Heartburn is a type of pain or discomfort that can happen in the throat or chest. It is often described as a burning pain. It may also cause a bad, acid-like taste in the mouth. ? Avoid certain foods and drinks as told by your health care provider. ? Take vxtr-jgr-azybinc and prescription medicines only as told by your health care provider. Do not take aspirin or NSAIDs, such as ibuprofen, unless your health care provider told you to do so. ? Contact a health care provider if your symptoms do not improve or they get worse. This information is not intended to replace advice given to you by your health care provider. Make sure you discuss any questions you have with your health care provider. Document Revised: 05/17/2021 Document Reviewed: 05/17/2021 [employer] Patient Education ? 2022 [employer] Nutrition BMI for Adults What is BMI? Body mass index (BMI) is a number that is calculated from a person's weight and height. BMI can help estimate how much of a person's weight is composed of fat. BMI does not measure body fat directly. Rather, it is an alternative to procedures that directly measure body fat, which can be difficult (more content not included)... Normal [facility] Ambulatory Visit Summaryon 1 1-29-2023 Ambulatory Visit Summary JOSE DAI :1950 Visit Date:10/23/2023 Ambulatory Visit Instructions Your Diagnosis Flatulence GERD (gastroesophageal reflux disease) BMI 40.0-44.9, adult Morbid obesity Your Care Team Attending Physician - Ellen Carlos Primary Care Physician - Ellen Carlos This Is Your Medications List aspirin (aspirin 325 mg Oral EC Tab) atorvastatin (atorvastatin 10 mg Tab) calcium-vitamin D (calcium (as carbonate)-vitamin D 500 mg-200 intl units oral tablet) famotidine (famotidine 40 mg Tab) glucosamine losartan (losartan 25 mg Tab) multivitamin with minerals (Multivitamin, Therapeutic w/ Minerals) omega-3 polyunsaturated fatty acids (Fish Oil 1200 mg oral capsule) omeprazole (omeprazole 40 mg Cap-DR) Procedures Performed Cataract extraction and insertion of intraocular lens (11/15/2020), Cataract extraction and insertion of intraocular lens (11/01/2020), Colonoscopy (06/11/2018). Discharge Vitals Temperature (Oral) 36.5 ?C Heart Rate (Peripheral) 75 Blood Pressure 136/74 Height 166 cm Height 65 in Weight 115.1 kg Weight 253.22 lb BMI 41.77 What to do next Scheduled Follow-Up Appointments Saturday 9:00 AM EST With: Ellen Carlos Where: [facility] Invalid Interpretation Code [address] [place] [address]- \.br\ Saturday 8:00 AM EDT \.br\ With: Ellen Carlos\.br\ Where: [facility] Family Medicine Office/Clini c Noteon 10-23-2023 Family Medicine Office/Clinic Note Chief Complaint pt here for being gassy, onset comes and goes few months. HPI Staff Medicare wellness: utd Last routine labs: 03/27/23 smoker status: never Mammogram (qyr 45-54, q2yrs 55-75): utd colonoscopy/cologua rd (45-75yo): utd DEXA (F>65, M>70): due flu vaccine status: utd covid vaccine: utd History of Present Illness Jose is a 73 yo female presenting today with excessive gassiness Pt reports always having baseline gassiness but about 2-3 weeks ago the gassiness has become more frequent. Pt reports 2-3 episodes of gassiness daily. Some days are better than other. Pt is negative for the following alarm features: -Nocturnal abdominal pain -Weight loss -Hematochezia -Systemic symptoms including weight loss or fever -Diarrhea or steatorrhea -Vomiting -Severe abdominal tenderness, organomegaly, or succussion splash on physical examination GERD - omeprazole 40mg/d. Pt reports some central chest indigestion that comes and goes. She takes the omeprazole in the morning. The indigestion occurs after eating. Pt has had her gallbladder removed. Pt's diet includes cereal for breakfast, lunch-meat sandwiches, for lunch pt reports having chicken/pork/beef most nights for dinner, pt also eats grapes/oranges. Pt reports drinking 8oz milk daily. She also has ice cream every night for snack. Patient has high blood pressure. Patient denies any CP or SOB, acute injury/trauma, delirium, seizures, vision changes, nausea, vomiting, back pain, CARTY, dizziness or irritation at this time. Pt denies recent use of tobacco, decongestants/sudaf ed, albuterol, NSAIDs. Pt is taking medications as prescribed and is tolerating well. No med side effects. Currently taking: losartan 25mg qd HLD - omega 3 1200mg qd and atorvastatin 10mg qd Osteopenia- calcium and Vit D supplements. Due for repeat DEXA preDM - not taking medication. Hgb A1C %: 6 % High (03/27/23 09:45:00) Review of Systems PHQ Score Initial Depression Screen Score: 0 SCORE Physical Exam Vitals & Measurements T: 36.5 ?C(Oral) HR: 75(Peripheral) BP: 136/74 SpO2: 98% HT: 65 in HT: 166 cm WT: 115.1 kg WT: 253.22 lb BMI: 41.77 General: Well developed, well nourished, in no acute distress Eyes: Bilateral PERRLA, conjunctivae and sclerae wnl, EOMs intact, lids without stye, chalazion, ect/extropion, ptosis, xanthelasma, blepharitis. No discharge to inner canthi.Negative for corneal abrasion or foreign bodies. Ears: grossly normal hearing Nose: No deformity, discharge, inflammation, or lesions. No congestion, no erythema; pink & moist turbinates; clear rhinorrhea. Mouth: mucous membranes pink, moist and intact. [place] posterior oropharynx, no palatal inflammation, uvula midline, no cobble-stoning, no enlarged tonsils, no tonsillar exudate, no ulcers, no active post nasal drip. tongue midline and wnl. Good dentition. Neck: Neck supple. No lymphadenopathy. Trachea midline. No thyroid, masses, tenderness, or enlargement noted. No bruit. Lungs: Normal respiratory effort and clear to auscultation Cardio: Regular rate and rhythm, normal S1 and S2, no murmur, no rub Abdomen: soft/non-distended. BS normoactive in all 4 quadrants. No peristaltic waves/pulsations/or ganomegaly/suprapub ic bulge/tenderness/ma sses/guarding/rigid ity/bruits/dullness to percussion. Negative Cisneros's/McBurney's /Rovsing's/psoas signs/CVA tenderness. Musculoskeletal: No deformity or scoliosis noted. No vertebral tenderness. Normal range of motion. No vertebral point tenderness. Joints normal. No erythema, edema, effusion, crepitus, or ecchymosis. Straight leg raise negative Extremity: No clubbing, cyanosis, edema, or deformity. Normal ROM with upper and lower extremities, bilaterally. Neurologic: Cranial nerves II-XII grossly intact. motor strength equal & normal bilaterally, sensation equal & normal bilaterally. Gait normal. Skin: No rashes, ulcerations, or suspicious lesions Mental Status: Alert and oriented x3. Normal mood and affect Assessment/Plan 1. Flatulence (R14.3: Flatulence) The frequency of flatus released varies between 10 and 20 times per day in healthy subjects. Although excessive passage of flatus or its foul odor may be a source of embarrassment to the patient, it is rarely associated with serious illness. Offensive odor, when present, may be due to sulfur-containing compounds. A number of factors may account for bothersome flatus: - An alteration of intestinal motility or intestinal bacteria. - Dietary factors, such as an increased intake of lactose, fructose, sorbitol; undigestible starches in fruits, vegetables, and legumes; and carbonated beverages. Products such as pork may release trace concentrations of malodorous gases upon digestion - stress/anxiety Pt is negative for the following alarm features: -Nocturnal abdominal pain -Weight loss -Hematochezia -Systemic symptoms including weight loss or fever -Diarrhea or steatorrhea -Vomiting -Severe abdominal tendernes (more content not included)... Normal [facility] Comment on above: Result Comment: Elec tronically Signed By: Daquan GRANADOS, Ellen Bonilla\.br\Date and Time Signed: 10/23/23 11:14 EST Patient Educationon 10-22-20 Patient Education Gastroenterology Abdominal Bloating When you have abdominal bloating, your abdomen may feel full, tight, or painful. It may also look bigger than normal or swollen (distended). Common causes of abdominal bloating include: ? Swallowing air. ? Constipation. ? Problems digesting food. ? Eating too much. ? Irritable bowel syndrome. This is a condition that affects the large intestine. ? Lactose intolerance. This is an inability to digest lactose, a natural sugar in dairy products. ? Celiac disease. This is a condition that affects the ability to digest gluten, a protein found in some grains. ? Gastroparesis. This is a condition that slows down the movement of food in the stomach and small intestine. It is more common in people with diabetes mellitus. ? Gastroesophageal reflux disease (GERD). This is a condition that makes stomach acid flow back into the esophagus. ? Urinary retention. This means that the body is holding onto urine, and the bladder cannot be emptied all the way. Follow these instructions at home: Eating and drinking ? Avoid eating too much. ? Try not to swallow air while talking or eating. ? Avoid eating while lying down. ? Avoid these foods and drinks: ? Foods that cause gas, such as broccoli, cabbage, cauliflower, and baked beans. ? Carbonated drinks. ? Hard candy. ? Chewing gum. Medicines ? Take [id number]-fhi-fswbbnx and prescription medicines only as told by your health care provider. ? Take probiotic medicines. These medicines contain live bacteria or yeasts that can help digestion. ? Take coated peppermint oil capsules. General instructions ? Try to exercise regularly. Exercise may help to relieve bloating that is caused by gas and relieve constipation. ? Keep all follow-up visits. This is important. Contact a health care provider if: ? You have nausea and vomiting. ? You have diarrhea. ? You have abdominal pain. ? You have unusual weight loss or weight gain. ? You have severe pain, and medicines do not help. Get help right away if: ? You have chest pain. ? You have trouble breathing. ? You have shortness of breath. ? You have trouble urinating. ? You have darker urine than normal. ? You have blood in your stools or have dark, tarry stools. These symptoms may represent a serious problem that is an emergency. Do not wait to see if the symptoms will go away. Get medical help right away. Call your local emergency services (911 in the [place] Do not drive yourself to the hospital. Summary ? Abdominal bloating means that the abdomen is swollen. ? Common causes of abdominal bloating are swallowing air, constipation, and problems digesting food. ? Avoid eating too much and avoid swallowing air. ? Avoid foods that cause gas, carbonated drinks, hard candy, and chewing gum. This information is not intended to replace advice given to you by your health care provider. Make sure you discuss any questions you have with your health care provider. Document Revised: 06/13/2021 Document Reviewed: 06/13/2021 [employer] Patient Education ? 2022 [employer] Pediatrics Gas and Gas Pains, Pediatric It is normal for children to have gas and gas pains from time to time. Gas can be caused by many things, including: ? Foods that have a lot of fiber. These include fruits, whole grains, beans, and vegetables, including peas. ? Swallowed air. Children often swallow air when they are nervous, eat too fast, chew gum, or drink through a straw. ? Antibiotic medicines. ? Substances added to certain foods to make the food look or taste better (food additives). ? Constipation. ? Diarrhea. Sometimes gas and gas pains can be a sign that your child has a medical problem, such as: ? Inability to digest a sugar that is found in milk and other dairy products (lactose intolerance). ? Inability to digest a protein that is found in wheat and some other grains (gluten intolerance). ? Trouble digesting foods that are eaten by the mother. Follow these instructions at home: Tips for caring for a baby ? When bottle feeding: ? Make sure that there is no air in the bottle nipple. ? Try burping your baby after every ounce (30 mL) that he or she drinks. ? Make sure that the bottle nipple is not clogged and is large enough. Your baby should not be working too hard to suck. ? If you are : ? Let your baby finish on one breast before moving the baby to the other breast. ? Burp your baby before switching breasts. ? If you are and your baby's gas becomes excessive, or your baby has gas along with other symptoms, such as diarrhea or weight loss, try the following: ? Stop eating all dairy products for a week, or as long as your health care provider suggests. This can help determine whether dairy is causing your baby to have gas. ? Try avoiding foods that typically cause gas after y (more content not included)... Normal [facility] Dexa Scanson 08-29-2023 Dexa Scans [id number] 36#[id number] Normal [facility] Outside Mammographyon 2022 Outside Mammography [id number] 02#1.00TIFF Normal [facility] Dexa Scanson 08-23-2023 Dexa Scans [id number]#[id number]:127 Normal [facility] Consultation Noteon 06-03-20 23 Consultation Note [id number] 57#[id number]:127 Normal [facility] CHEMISTRYOrdered By: SYSTEM SYSTEM on 03-27-2023 25-hydroxyvitamin D3 [Mass/Vol] 33.1 ng/mL Normal 30.0 - 100.0 ng/mL [facility] Albumin [Mass/Vol] 3.9 g/dL Normal 3.3 - 5.0 gm/dL [facility] Albumin/Globulin [Mass ratio] 1.1 {ratio} Normal 1.1 - 2.2 [facility] ALP [Catalytic activity/Vol] 85 [iU]/d Normal 21 - 98 Int._Unit/L [facility] ALT No additional P-5'-P [Catalytic activity/Vol] 31 [iU]/d Normal 6 - 46 Int._Unit/L [facility] Anion gap [Moles/Vol] 11 mmol/L Normal 6 - 16 mEq/L [facility] AST [Catalytic activity/Vol] 20 [iU]/d Normal 5 - 43 Int._Unit/L [facility] Bilirubin [Mass/Vol] 0.6 mg/dL Normal 0.0 - 1.1 mg/dL [facility] Calcium [Mass/Vol] 9.4 mg/dL Normal 8.9 - 11.1 mg/dL [facility] Chloride [Moles/Vol] 106 mmol/L Normal 101 - 111 mmol/ L [facility] Cholesterol [Mass/Vol] 153 mg/dL Normal 120 - 200 mg/dL [facility] Cholesterol in HDL [Mass/Vol] 53 mg/dL Invalid Interpretation Code [facility] Cholesterol in LDL [Mass/Vol] 75 mg/dL Normal <=129mg/dL [facility] Cholesterol in VLDL [Mass/Vol] 37 mg/dL Normal 7 - 40 mg/dL [facility] CO2 [Moles/Vol] 26 mmol/L Normal 21 - 31 mmol/L [facility] Creatinine [Mass/Vol] 0.9 mg/dL Normal 0.5 - 1.3 mg/dL [facility] GFR/1.73 sq M.predicted among non-blacks MDRD (S/P/Bld) [Vol rate/Area] 68 mL/min/1.73 m2 Normal >=59mL/min/1.73 m2 [facility] S Globulin (S) [Mass/Vol] 3.5 g/dL Normal 1.4 - 4.0 gm/dL [facility] Glucose [Mass/Vol] 118 mg/dL Normal 55 - 199 mg/dL [facility] Potassium [Moles/Vol] 4.4 mmol/L Normal 3.5 - 5.3 mmol/L [facility] Protein [Mass/Vol] 7.4 g/dL Normal 6.0 - 7.8 gm/dL [facility] Sodium [Moles/Vol] 139 mmol/L Normal 135 - 145 mmol/L [facility] Triglyceride [Mass/Vol] 184 mg/dL High <=149mg/dL [facility] TSH Qn 2.86 m[IU]/L Normal 0.34 - 5.60 mcIU/mL [facility] Urea nitrogen [Mass/Vol] 16 mg/dL Normal 5 - 21 mg/dL [facility] Urea nitrogen/Creatinine [Mass ratio] 18 mg/mg Normal 10 - 20 [facility] CHEMISTRYOrdered By: Jose Larose on 03-27-2023 HbA1c (Bld) [Mass fraction] 6.0 % High <=5.9% [facility] ChemAutoSS HEMATOLOGYOrdered By: SYSTEM SYSTEM on 03-27-2023 Basophils/100 WBC (Bld) 0.7 % Normal 0.0 - 2.0 % [facility] HemeAutoSS Basophils/Leukocytes Auto (Bld) [Pure # fraction] 0.1 E9/L Normal 0.0 - 0.2 E9/L [facility] Eosinophils/100 WBC (Bld) 4.7 % Normal 0.0 - 8.0 % [facility]eAuto[facility] Eosinophils/Leukocyt es Auto (Bld) [Pure # fraction] 0.4 E9/L Normal 0.0 - 0.5 E9/L [facility]eAutoSS Lymphocytes/100 WBC (Bld) 23.4 % Normal 14.0 - 50.0 % [facility]eAutoSS Lymphocytes/Leukocyt es Auto (Bld) [Pure # fraction] 1.9 E9/L Normal 1.0 - 4.0 E9/L [facility]eAutoSS Monocytes/100 WBC (Bld) 6.6 % Normal 4.0 - 14.0 % [facility]eAutoSS Monocytes/Leukocytes Auto (Bld) [Pure # fraction] 0.6 E9/L Normal 0.2 - 1.0 E9/L [facility] Neutrophils/100 WBC (Bld) 64.6 % Normal 36.0 - 75.0 % [facility]eAutoSS Neutrophils/Leukocyt es Auto (Bld) [Pure # fraction] 5.4 E9/L Normal 2.0 - 7.5 E9/L [facility] HemeAutoSS HEMATOLOGYOrdered By: Maryan Samaniego on 03-27-2023 Erythrocyte distribution width (RBC) [Ratio] 13.3 % Normal 10.9 - 14.2 % [facility] Hematocrit (Bld) [Volume fraction] 40.6 % Normal 34.0 - 46.0 % [facility] Hemoglobin (Bld) [Mass/Vol] 13.2 g/dL Normal 12.0 - 16.0 gm/dL [facility] MCH (RBC) [Entitic mass] 27.8 pg Normal 27.0 - 34.0 pg [facility] MCHC (RBC) [Mass/Vol] 32.5 g/dL Normal 31.4 - 36.0 gm/dL [facility] MCV (RBC) [Entitic vol] 85.6 fL Normal 80.0 - 100.0 fL [facility] Platelet mean volume (Bld) [Entitic vol] 8.4 fL Normal 6.4 - 10.8 fL [facility]eAuto[facility] Platelets (Bld) [#/Vol] 206.0 E9/L Normal 150.0 - 500.0 E9/L [facility]eAuto[facility] RBC (Bld) [#/Vol] 4.7 E12/L Normal 4.3 - 5.9 E12/L [facility] WBC corrected for nucl RBC Auto (Bld) [#/Vol] 8.3 E9/L Normal 4.0 - 11.0 E9/L [facility]eAutoSS MG MAMM SCREEN 3D PADDY CADon 08-09-2022 MG MAMM SCREEN 3D PADDY CAD Patient: JOSE DAI Exam Date: 08/09/2022 : 1950 Gender:F Ordering : RUPA FINK Admission #: [id number] Family : Order #: [id number] CLICK HERE TO VIEW EXAM RADIOLOGY REPORT PROCEDURE: MAMMOGRAM SCREENING 3D BILATERAL CAD COMPARISON: MG MAMM SCREEN PADDY W CAD, 05/19/2020. MG MAMM SCREEN 3D PADDY CAD, 05/25/2021. INDICATIONS: Screening mammography Calculator Name NCI Breast Cancer Risk Assessment Tool 5 Year Breast Cancer Risk 1.40% Lifetime Breast Cancer Risk 3.60% Personal Breast Cancer No Personal Ovarian Cancer No Treatments None Family Cancers None LOCATION: [facility] BREAST COMPOSITION: Scattered areas fibroglandular density. FINDINGS: DIAGNOSTIC CATEGORY 2--BENIGN FINDING. NO CHANGE FROM COMPARISON. Scattered benign-appearing nodules are present. Scattered benign-appearing calcifications are present. RIGHT BREAST: No significant suspicious finding. LEFT BREAST: No significant suspicious finding. RECOMMENDATIONS: ROUTINE MAMMOGRAM AND CLINICAL EVALUATION IN 12 MONTHS. PLEASE NOTE: A NORMAL MAMMOGRAM DOES NOT EXCLUDE THE POSSIBILITY OF BREAST CANCER. A CLINICALLY SUSPICIOUS PALPABLE LUMP SHOULD BE BIOPSIED. Dictated by: Marii Hussein MD on 08/09/2022 at 12:19 Approved by: Marii Hussein MD on 08/09/2022 at 12:21 Normal [facility] GLYCOHEMOGLOBIN A1Con 2021 ADA RECOMMENDATION ADA THERAPEUTIC TARGET 6.0 - 7.0 ACTION SUGGESTED > 7.0 Normal [facility] Comment on above: Performed By: #### A 1C #### [facility] [address] [place] [address] Dr. Nancy Thornton Glucose [Mass/Vol] 128 mg/dL Normal [facility] Comment on above: Performed By: #### A 1C #### [facility] [address] [place] [address] Dr. Nancy Thornton HbA1c (Bld) [Mass fraction] 6.1 % Critically high <=6.0 [facility] Comment on above: Performed By: #### A 1C #### [facility] [address] [place] [address] Dr. Nancy Thornton LIPID PROFILEon 03-01-2022 CHOL-HDL RATIO NORM SEE BELOW Normal [facility] Comment on above: Result Comment: 3.3 - 4.4 LOW RISK 4.4 - 7.1 AVERAGE RISK 7.1 - 11.0 MODERATE RISK >11.0 HIGH RISK Performed By: #### C MP, LIPID #### [facility] [address] [place] [address] Dr. Nancy Thornton Cholesterol [Mass/Vol] 143 mg/dL Normal <=200 [facility] Comment on above: Performed By: #### C MP, LIPID #### [facility] [address] [place] [address] Dr. Nancy Thornton Cholesterol in HDL [Mass/Vol] 56 mg/dL Normal 40-60 [facility] Comment on above: Performed By: #### C MP, LIPID #### [facility] [address] [address] [address] Nancy Thornton Cholesterol in LDL [Mass/Vol] 52.2 mg/dL Normal [facility] Comment on above: Performed By: #### C MP, LIPID #### [facility] [address] [address] [address] Nancy Thornton Cholesterol.total/Ch olesterol in HDL [Mass ratio] 2.6 {ratio} Normal [facility] Comment on above: Performed By: #### C MP, LIPID #### [facility] [address] [place] [address] Dr. Nancy Thornton HDL NORMAL > or = 60 mg/dl - LOW CARDIOVASCULAR RISK <40 mg/dl - HIGH CARDIOVASCULAR RISK Normal [facility] Comment on above: Performed By: #### C MP, LIPID #### [facility] [address] [address] [address] Nancy Thornton LDL CALC NORMAL SEE BELOW Normal [facility] Comment on above: Result Comment: <100 mg/dl OPTIMAL 100 - 129 mg/dl NEAR OR ABOVE OPTIMAL 130 - 159 mg/dl BORDERLINE HIGH 160 - 189 mg/dl HIGH >190 mg/dl VERY HIGH Performed By: #### C MP, LIPID #### [facility] [address] [address] [address] Nancy Thornton Triglyceride [Mass/Vol] 174 mg/dL Critically high <=150 [facility] Comment on above: Performed By: #### C MP, LIPID #### [facility] [address] [address] [address] Nancy Thornton VLDL CALC 34.8 mg/dL Normal [facility] Comment on above: Performed By: #### C MP, LIPID #### [facility] [address] [place] [address] Dr. Nancy Thornton PROF 14(COMP METB)on 022 Albumin [Mass/Vol] 3.5 g/dL Normal 3.4-5.0 [facility] Comment on above: Performed By: #### C MP, LIPID #### [facility] [address] [address] [address] Nancy Thornton Albumin/Globulin [Mass ratio] 0.9 {ratio} Normal [facility] Comment on above: Performed By: #### C MP, LIPID #### [facility] [address] [address] [address] Nancy Thornton ALP [Catalytic activity/Vol] 123 U/L Critically high 46-116 [facility] Comment on above: Performed By: #### C MP, LIPID #### [facility] [address] [address] [address] Nancy Thornton ALT [Catalytic activity/Vol] 40 U/L Normal 14-59 [facility] Comment on above: Performed By: #### C MP, LIPID #### [facility] [address] [place] [address] Dr. Nancy Thornton Anion gap [Moles/Vol] 12.8 mmol/L Normal [facility] Comment on above: Performed By: #### C MP, LIPID #### [facility] [address] [address] [address] Nancy Thornton AST [Catalytic activity/Vol] 26 U/L Normal 15-37 [facility] Comment on above: Performed By: #### C MP, LIPID #### [facility] [address] [address] [address] Nancy Thornton Bilirubin [Mass/Vol] 0.5 mg/dL Normal 0.2-1.3 [facility] Comment on above: Performed By: #### C MP, LIPID #### [facility] [address] [address] [address] Nancy Thornton Calcium [Mass/Vol] 9.0 mg/dL Normal 8.5-10.1 [facility] Comment on above: Performed By: #### C MP, LIPID #### [facility] [address] [address] [address] Nancy Thornton Chloride [Moles/Vol] 105 mmol/L Normal 98-107 [facility] Comment on above: Performed By: #### C MP, LIPID #### [facility] [address] [address] [address] Nancy Thornton CO2 [Moles/Vol] 26.1 mmol/L Normal 22.0-30.0 [facility] Comment on above: Performed By: #### C MP, LIPID #### [facility] [address] [place] [address] Dr. Nancy Thornton Creatinine [Mass/Vol] 0.80 mg/dL Normal 0.52-1.04 [facility] Comment on above: Performed By: #### C MP, LIPID #### [facility] [address] [place] [address] Dr. Nancy Thornton EGFR-AF MARTINIQUAIS >60 Normal >=60 [facility] Comment on above: Performed By: #### C MP, LIPID #### [facility] [address] [place] [address] Dr. Nancy Thornton EGFR-NON AF MARTINIQUAIS >60 Normal >=60 [facility] Comment on above: Performed By: #### C MP, LIPID #### [facility] [address] [place] [address] Dr. Nancy Thornton Globulin (S) [Mass/Vol] 3.7 g/dL Normal [facility] Comment on above: Performed By: #### C MP, LIPID #### [facility] [address] [place] [address] Dr. Nancy Thornton Glucose [Mass/Vol] 105 mg/dL Normal 74-106 [facility] Comment on above: Performed By: #### C MP, LIPID #### [facility] [address] [place] [address] Dr. Nancy Thornton Potassium [Moles/Vol] 4.9 mmol/L Normal 3.4-5.0 [facility] Comment on above: Performed By: #### C MP, LIPID #### [facility] [address] [place] [address] Dr. Nancy Thornton Protein [Mass/Vol] 7.2 g/dL Normal 6.1-8.2 [facility] Comment on above: Performed By: #### C MP, LIPID #### [facility] [address] [address] [address] Nancy Thornton Sodium [Moles/Vol] 139 mmol/L Normal 137-145 [facility] Comment on above: Performed By: #### C MP, LIPID #### [facility] [address] [address] [address] Nancy Thornton Urea nitrogen [Mass/Vol] 15.0 mg/dL Normal 7.0-18.0 [facility] Comment on above: Performed By: #### C MP, LIPID #### [facility] [address] [address] [address] Nancy Thornton Urea nitrogen/Creatinine [Mass ratio] 18.8 mg/mg Normal [facility] Comment on above: Performed By: #### C MP, LIPID #### [facility] [address] [place] [address] Dr. Nancy Thornton VITAMIN D 25 OHon 03-01-2022 VIT D 25-OH 29.8 ng/mL Normal [facility] Comment on above: Performed By: #### V ITAD #### [facility] [address] [place] [address] Dr. Nancy Thornton VIT D RANGES SEE BELOW Normal [facility] Comment on above: Result Comment: <20 ng/mL Vit D deficient 20 - <30 ng/mL Vit D insufficient 30 - 100 ng/mL Vit D sufficient >100 ng/mL Potential Toxicity Performed By: #### V ITAD #### [facility] [address] [place] [address] Dr. Nancy Thornton LIPID PROFILEon 09-14-2021 CHOL-HDL RATIO NORM SEE BELOW Normal [facility] Comment on above: Result Comment: 3.3 - 4.4 LOW RISK 4.4 - 7.1 AVERAGE RISK 7.1 - 11.0 MODERATE RISK >11.0 HIGH RISK Performed By: #### C MP, LIPID #### [facility] [address] [place] [address] Dr. Nancy Thornton Cholesterol [Mass/Vol] 138 mg/dL Normal <=200 [facility] Comment on above: Performed By: #### C MP, LIPID #### [facility] [address] [address] [address] Nancy Thornton Cholesterol in HDL [Mass/Vol] 58 mg/dL Normal [facility] Comment on above: Performed By: #### C MP, LIPID #### [facility] [address] [address] [address] Nancy Thornton Cholesterol in LDL [Mass/Vol] 37.4 mg/dL Normal [facility] Comment on above: Performed By: #### C MP, LIPID #### [facility] [address] [place] [address] Dr. Nancy Thornton Cholesterol.total/Ch olesterol in HDL [Mass ratio] 2.4 {ratio} Normal [facility] Comment on above: Performed By: #### C MP, LIPID #### [facility] [address] [place] [address] Dr. Nancy Thornton HDL NORMAL > or = 60 mg/dl - LOW CARDIOVASCULAR RISK <40 mg/dl - HIGH CARDIOVASCULAR RISK Normal [facility] Comment on above: Performed By: #### C MP, LIPID #### [facility] [address] [place] [address] Dr. Nancy Thornton LDL CALC NORMAL SEE BELOW Normal [facility] Comment on above: Result Comment: <100 mg/dl OPTIMAL 100 - 129 mg/dl NEAR OR ABOVE OPTIMAL 130 - 159 mg/dl BORDERLINE HIGH 160 - 189 mg/dl HIGH >190 mg/dl VERY HIGH Performed By: #### C MP, LIPID #### [facility] [address] [address] [address] Nancy Thornton Triglyceride [Mass/Vol] 213 mg/dL Critically high <=150 [facility] Comment on above: Performed By: #### C MP, LIPID #### [facility] [address] [place] [address] Dr. Nancy Thornton VLDL CALC 42.6 mg/dL Normal [facility] Comment on above: Performed By: #### C MP, LIPID #### [facility] [address] [place] [address] Dr. Nancy Thornton PROF 14(COMP METB)on 10-21-2 021 Albumin [Mass/Vol] 3.5 g/dL Normal 3.5-5.0 [facility] Comment on above: Performed By: #### C MP, LIPID #### [facility] [address] [place] [address] Dr. Nancy Thornton Albumin/Globulin [Mass ratio] 1.0 {ratio} Normal [facility] Comment on above: Performed By: #### C MP, LIPID #### [facility] [address] [address] [address] Nancy Thornton ALP [Catalytic activity/Vol] 96 U/L Normal 38-126 [facility] Comment on above: Performed By: #### C MP, LIPID #### [facility] [address] [place] [address] Dr. Nancy Thornton ALT [Catalytic activity/Vol] 44 U/L Normal 9-52 [facility] Comment on above: Performed By: #### C MP, LIPID #### [facility] [address] [place] [address] Dr. Nancy Thornton Anion gap [Moles/Vol] 8.8 mmol/L Normal [facility] Comment on above: Performed By: #### C MP, LIPID #### [facility] [address] [place] [address] Dr. Nancy Thornton AST [Catalytic activity/Vol] 24 U/L Normal 14-36 [facility] Comment on above: Performed By: #### C MP, LIPID #### [facility] [address] [place] [address] Dr. Nancy Thornton Bilirubin [Mass/Vol] 0.4 mg/dL Normal 0.2-1.3 [facility] Comment on above: Performed By: #### C MP, LIPID #### [facility] [address] [place] [address] Dr. Nancy Thornton Calcium [Mass/Vol] 8.7 mg/dL Normal 8.4-10.2 [facility] Comment on above: Performed By: #### C MP, LIPID #### [facility] [address] [place] [address] Dr. Nancy Thornton Chloride [Moles/Vol] 105 mmol/L Normal 98-107 [facility] Comment on above: Performed By: #### C MP, LIPID #### [facility] [address] [place] [address] Dr. Nancy Thornton CO2 [Moles/Vol] 29.3 mmol/L Normal 22.0-30.0 [facility] Comment on above: Performed By: #### C MP, LIPID #### [facility] [address] [place] [address] Dr. Nancy Thornton Creatinine [Mass/Vol] 0.81 mg/dL Normal 0.52-1.04 [facility] Comment on above: Performed By: #### C MP, LIPID #### [facility] [address] [place] [address] Dr. Nancy Thornton EGFR-AF MARTINIQUAIS >60 Normal >=60 [facility] Comment on above: Performed By: #### C MP, LIPID #### [facility] [address] [place] [address] Dr. Nancy Thornton EGFR-NON AF MARTINIQUAIS >60 Normal >=60 [facility] Comment on above: Performed By: #### C MP, LIPID #### [facility] [address] [place] [address] Dr. Nancy Thornton Globulin (S) [Mass/Vol] 3.6 g/dL Normal [facility] Comment on above: Performed By: #### C MP, LIPID #### [facility] [address] [place] [address] Dr. Nancy Thornton Glucose [Mass/Vol] 103 mg/dL Normal 74-106 [facility] Comment on above: Performed By: #### C MP, LIPID #### [facility] [address] [place] [address] Dr. Nancy Thornton Potassium [Moles/Vol] 4.1 mmol/L Normal 3.4-5.0 [facility] Comment on above: Performed By: #### C MP, LIPID #### [facility] [address] [place] [address] Dr. Nancy Thornton Protein [Mass/Vol] 7.1 g/dL Normal 6.1-8.2 [facility] Comment on above: Performed By: #### C MP, LIPID #### [facility] [address] [address] [address] Nancy Thornton Sodium [Moles/Vol] 139 mmol/L Normal 137-145 [facility] Comment on above: Performed By: #### C MP, LIPID #### [facility] [address] [address] [address] Nancy Thornton Urea nitrogen [Mass/Vol] 21.0 mg/dL Critically high 7.0-17.0 [facility] Comment on above: Performed By: #### C MP, LIPID #### [facility] [address] [address] [address] Nancy Thornton Urea nitrogen/Creatinine [Mass ratio] 25.9 mg/mg Normal [facility] Comment on above: Performed By: #### C MP, LIPID #### [facility] [address] [address] [address] Nancy Thornton Vital Signs Date Time Vital Sign Value Performing Clinician Facility 05-04-2024 08:11-0400 Diastolic blood pressure 94 mm[Hg] [facility] 05-04-2024 08:11-0400 Mean blood pressure 124 mm[Hg] Isela Tineo [facility] 05-04-2024 08:11-0400 Systolic blood pressure 184 mm[Hg] Isela Edwardsan [facility] 05-04-2024 07:51-0400 Blood Pressure Location Isela Tineo [facility] 05-04-2024 07:51-0400 Diastolic blood pressure 78 mm[Hg] Isela Edwardsan [facility] 05-04-2024 07:51-0400 Heart rate 78 /min [facility] T[facility] 05-04-2024 07:51-0400 SaO2% (BldA) [Mass fraction] 99 % Isela Tineo [facility] 05-04-2024 07:51-0400 Systolic blood pressure 144 mm[Hg] Isela Tineo [facility] 04-08-2024 10:15-0400 Blood Pressure Location Ellen Missler [facility] 04-08-2024 10:15-0400 Body temperature 96.98 [degF] Ellen Missler [facility] 04-08-2024 10:15-0400 Diastolic blood pressure 72 mm[Hg] Ellen Missler [facility] 04-08-2024 10:15-0400 Heart rate 79 /min Ellen Missler [facility] 04-08-2024 10:15-0400 SaO2% (BldA) [Mass fraction] 97 % Ellen Missler [facility] 04-08-2024 10:15-0400 Systolic blood pressure 130 mm[Hg] Ellen Missler [facility] 01-29-2024 08:05-0500 Blood Pressure Location Ellen Missler [facility] 01-29-2024 08:05-0500 Body temperature 98.06 [degF] Ellen Missler [facility] 01-29-2024 08:05-0500 Diastolic blood pressure 70 mm[Hg] Ellen Missler [facility] 01-29-2024 08:05-0500 Heart rate 67 /min Ellen Missler [facility] 01-29-2024 08:05-0500 SaO2% (BldA) [Mass fraction] 97 % Ellen Butt [facility] 01-29-2024 08:05-0500 Systolic blood pressure 132 mm[Hg] Ellen Butt [facility] 12-27-2023 08:26-0500 Body height 165.1 cm [facility] [employer] Work Phone: [facility] 12-27-2023 08:26-0500 Body mass index (BMI) [Ratio] 42.77 kg/m2 [facility] [employer] Work Phone: [facility] 12-27-2023 08:26-0500 Body temperature 98.01 [degF] [facility] Work Phone: [facility] 12-27-2023 08:26-0500 Body weight 116.57 kg [facility] [employer] Work Phone: [facility] 12-09-2023 08:58-0500 Blood Pressure Location Ellen Butt [facility] 12-09-2023 08:58-0500 Body temperature 97.52 [degF] Ellen Butt [facility] 12-09-2023 08:58-0500 Diastolic blood pressure 76 mm[Hg] Ellen Butt [facility] 12-09-2023 08:58-0500 Heart rate 63 /min Ellen Butt [facility] 12-09-2023 08:58-0500 SaO2% (BldA) [Mass fraction] 98 % Ellen Butt [facility] 12-09-2023 08:58-0500 Systolic blood pressure 138 mm[Hg] Ellen Butt [facility] 10-23-2023 10:40-0500 Blood Pressure Location Ellen Butt [facility] 10-23-2023 10:40-0500 Body temperature 97.7 [degF] Ellen Butt [facility] 10-23-2023 10:40-0500 Diastolic blood pressure 74 mm[Hg] Ellen Butt [facility] 10-23-2023 10:40-0500 Heart rate 75 /min Ellen Butt [facility] 10-23-2023 10:40-0500 SaO2% (BldA) [Mass fraction] 98 % Ellen Butt [facility] 10-23-2023 10:40-0500 Systolic blood pressure 136 mm[Hg] Ellen Butt [facility] 09-20-2023 10:30-0400 Body height Dipti Barajas Other [employer] Other 09-20-2023 10:30-0400 Body mass index (BMI) [Ratio] 42.1 kg/m2 Dipti Barajas Other [employer] Other 09-20-2023 10:30-0400 Body weight 114.76 kg Dipti Barajas Other [employer] Other 09-20-2023 10:30-0400 Diastolic blood pressure 74 mm[Hg] Dipti Barajas Other [employer] Other 09-20-2023 10:30-0400 SaO2% (BldA) [Mass fraction] 97 % Dipti Barajas Other [employer] Other 09-20-2023 10:30-0400 Systolic blood pressure 166 mm[Hg] Dipti Barajas Other [employer] Other 03-01-2023 11:43-0400 Diastolic blood pressure 90 mm[Hg] Ellen Butt [facility] 03-01-2023 11:43-0400 Mean blood pressure 109 mm[Hg] Ellen Butt [facility] 03-01-2023 11:43-0400 Systolic blood pressure 148 mm[Hg] Ellen Butt [facility] 08-15-2022 16:00-0400 Body height Dipti Barajas Other [employer] Other 08-15-2022 16:00-0400 Body mass index (BMI) [Ratio] 42.26 kg/m2 Dipti Barajas Other [employer] Other 08-15-2022 16:00-0400 Body temperature 97.7 [degF] Dipti Barajas Other [employer] Other 08-15-2022 16:00-0400 Body weight 115.21 kg Dipti Barajas Other [employer] Other 08-15-2022 16:00-0400 Diastolic blood pressure 78 mm[Hg] Dipti Barajas Other [employer] Other 08-15-2022 16:00-0400 SaO2% (BldA) [Mass fraction] 98 % Dipti Barajas Other [employer] Other 08-15-2022 16:00-0400 Systolic blood pressure 149 mm[Hg] Dipti Barajas Other [employer] Other 06-21-2022 15:03-0400 Blood Pressure Location Isela Tineo [facility] 06-21-2022 15:03-0400 Diastolic blood pressure 78 mm[Hg] Mohwil Noman [facility] 06-21-2022 15:03-0400 Heart rate 80 /min Isela Noman [facility] 06-21-2022 15:03-0400 SaO2% (BldA) [Mass fraction] 98 % Isela Edwardsan [facility] 06-21-2022 15:03-0400 Systolic blood pressure 131 mm[Hg] Isela Noman [facility] 05-21-2022 09:58-0400 Diastolic blood pressure 74 mm[Hg] Isela Noman [facility] 05-21-2022 09:58-0400 Mean blood pressure 105 mm[Hg] Isela Noman [facility] 05-21-2022 09:58-0400 Systolic blood pressure 167 mm[Hg] Isela Noman [facility] 05-21-2022 09:54-0400 Blood Pressure Location Isela Noman [facility] 05-21-2022 09:54-0400 Diastolic blood pressure 77 mm[Hg] Isela Noman [facility] 05-21-2022 09:54-0400 Heart rate 74 /min Isela Noman [facility] 05-21-2022 09:54-0400 SaO2% (BldA) [Mass fraction] 99 % Mohwil Edwardsan [facility] 05-21-2022 09:54-0400 Systolic blood pressure 160 mm[Hg] Isela Tineo [facility] 04-10-2022 11:38-0400 Blood Pressure Location Rupa FINK [facility] 04-10-2022 11:38-0400 Body temperature 98.6 [degF] Rupa SPETTEL [facility] 04-10-2022 11:38-0400 Diastolic blood pressure 74 mm[Hg] Rupa SPETTEL [facility] 04-10-2022 11:38-0400 Heart rate 73 /min Rupa SPETTEL [facility] 04-10-2022 11:38-0400 SaO2% (BldA) [Mass fraction] 96 % Rupa SPETTEL [facility] 04-10-2022 11:38-0400 Systolic blood pressure 130 mm[Hg] Rupa SPETTEL [facility] Encounters Encounter Date Encounter Type Care Provider Facility Start: 05-04-2024 End: 05-04-2024 ambulatory Isela Tineo Facility:[facility] Start: 05-04-2024 End: 05-04-2024 Patient encounter procedure Lelawil NickChuckie Edwardsan [facility] Start: 04-30-2024 End: 04-30-2024 ambulatory FRANKIE VIVAR Not Available Start: 04-09-2024 End: 04-09-2024 ambulatory FRANKIE VIVAR Not Available Start: 04-08-2024 End: 04-08-2024 ambulatory Ellen Butt Facility:[facility] Start: 04-08-2024 End: 04-08-2024 Patient encounter procedure Ellen Butt [facility] Start: 04-08-2024 End: 04-08-2024 Well adult monitoring check done Ellen Butt [facility] Start: 04-03-2024 End: 04-03-2024 ambulatory GIULIANO GARCIA Not Available Start: 03-27-2024 End: 03-27-2024 ambulatory Ellen Butt Facility:[facility] Start: 03-27-2024 End: 03-27-2024 Patient encounter procedure Ellen Butt [facility] Start: 01-30-2024 End: 01-30-2024 ambulatory FRANKIE VIVAR Not Available Start: 01-29-2024 End: 01-29-2024 ambulatory Ellen Butt Facility:[facility] Start: 01-29-2024 End: 01-29-2024 Patient encounter procedure Ellen Butt [facility] Start: 01-29-2024 End: 01-29-2024 Well adult monitoring check done Ellen Butt [facility] Start: 12-27-2023 Chart abstracting Giuliano MANSFIELD Work Phone: [facility] Start: 12-27-2023 End: 12-27-2023 Patient encounter procedure Giuliano MANSFIELD Work Phone: [facility] Comment on above: 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, bilateral (Primary Dx) Start: 12-27-2023 End: 12-27-2023 ambulatory GIULIANO Fran GARCIA Not Available Start: 12-09-2023 End: 12-09-2023 ambulatory Ellen Butt Facility:[facility] Start: 12-09-2023 End: 12-09-2023 Patient encounter procedure Ellen Butt [facility] Start: 11-21-2023 End: 11-21-2023 ambulatory FRANKIE VIVAR Not Available Start: 10-31-2023 End: 10-31-2023 ambulatory FRANKIE VIVAR Not Available Start: 10-23-2023 End: 10-23-2023 ambulatory Ellen Butt Facility:[facility] Start: 10-23-2023 End: 10-23-2023 Patient encounter procedure Ellen Butt [facility] Start: 09-20-2023 Office outpatient vi sit 15 minutes [facility] Start: 09-20-2023 End: 09-20-2023 ambulatory [facility] [employer] Other Start: 04-19-2023 End: 04-19-2023 Patient encounter procedure Ellen Butt [facility] Start: 03-27-2023 End: 03-27-2023 Patient encounter procedure Ellen Butt [facility] Start: 03-01-2023 End: 03-01-2023 Patient encounter procedure Ellen Butt [facility] Start: 08-15-2022 End: 08-15-2022 Patient encounter procedure Rupa Fink Work Phone: [facility] Start: 08-15-2022 End: 08-15-2022 ambulatory Dipti Barajas Other [facility] [employer] Other Start: 08-15-2022 Office outpatient vi sit 25 minutes Dipti Barajas [facility] Start: 08-09-2022 End: 08-10-2022 ambulatory RUPA FINK Facility:[facility] Start: 06-21-2022 End: 06-21-2022 Patient encounter procedure [facility] RomeroChuckie Edwardsan [facility] Start: 06-11-2022 End: 07-19-2022 ambulatory RUPA FINK Facility:[facility] Start: 05-21-2022 End: 05-21-2022 Patient encounter procedure [facility] RomeroChuckie Tineo [facility] Start: 04-10-2022 End: 04-10-2022 Patient encounter procedure Rupa FINK [facility] Start: 03-01-2022 End: 03-02-2022 ambulatory RUPA FINK Facility:[facility] Start: 09-14-2021 End: 09-15-2021 ambulatory RUPA FINK Facility:[facility] Procedures Date Procedure Procedure Detail Performing Clinician Start: 12-27-2023 Arthrocentesis aspir &/inj major jt/bursa w/o us Giuliano MANSFIELD Work Phone: Start: 12-27-2023 Radiologic examinati on knee 3 views Giuliano MANSFIELD Work Phone: Start: 11-15-2020 Cataract extraction and insertion of intraocular lens Rupa FINK Start: 11-01-2020 Cataract extraction and insertion of intraocular lens Rupa FINK Start: 06-11-2018 Colonoscopy Giuliano MANSFIELD Work Phone: Start: 06-11-2018 Colonoscopy Rupa BARROW Plan of Treatment Date Care Activity Detail Author Start: 06-11-2028 Screening for malign ant neoplasm of colon [facility] Start: 01-29-2025 ambulatory Ambulatory Facility[facility] Start: 10-19-2024 ambulatory Ambulatory Facility[facility] Start: 01-30-2024 End: 01-30-2024 Patient encounter procedure 01/30/2024 8:50 AM EST Procedure Visit [facility] [address] [facility] [address] [place] [address] Frankie Vivar DPM [address] [facility] [address] [place] [address] [facility] Start: 12-27-2023 End: 12-27-2023 Patient encounter procedure 12/27/2023 8:30 AM EST Office Visit [facility] [address] [place] [address] Giuliano Garcia PA [address] [place] [address] [facility] Start: 1990 Screening for malign ant neoplasm of breast Mammogram [facility] Start: 1950 Screening for malign ant neoplasm of colon [facility] Immunizations Immunization Date Immunization Notes Care Provider Fa cility 08-01-2023 influenza virus vacc ine, unspecified formulation Ellen Butt [facility] 09-27-2022 SARS-CoV-2 (COVID-19 ) [id number] Ellen Butt [facility] Comment on above: Result Comment: 2022: [id number] 09-13-2022 influenza virus vacc ine, unspecified formulation Ellen Butt [facility] 06-28-2022 SARS-CoV-2 (COVID-19 ) mRNA-1273 vaccine Ellen Butt [facility] Comment on above: Result Comment: 2022: [id number] 10-05-2021 SARS-CoV-2 (COVID-19 ) mRNA-1273 vaccine Ellen Butt [facility] Comment on above: Result Comment: 2022: [id number] 09-06-2021 influenza virus vacc ine, unspecified formulation Rupa FINK [facility] 08-31-2021 influenza virus vacc ine, unspecified formulation Ellen Butt [facility] 02-15-2021 SARS-CoV-2 (COVID-19 ) mRNA-1273 vaccine Rupa FINK [facility] Comment on above: Result Comment: 2nd Vaccime 01-18-2021 SARS-CoV-2 (COVID-19 ) mRNA-1273 vaccine Rupa FINK [facility] Comment on above: Result Comment: 1st Vaccine 12-09-2020 zoster vaccine, live Stefany e SPETTEL [facility] 09-08-2020 influenza virus vacc ine, unspecified formulation Rupa FALLONTTEL [facility] 09-08-2020 zoster vaccine, live Stefany e SPETTEL [facility] 07-23-2019 influenza virus vacc ine, unspecified formulation Ellen Missler [facility] 12-02-2018 pneumococcal polysaccharide vaccine, 23 valent Ellen Butt [facility] 09-18-2018 influenza virus vacc ine, unspecified formulation Rupa FINK [facility] 09-27-2016 pneumococcal conjuga te vaccine, 13 valent Rupa SPETTEL [facility] 09-20-2016 pneumococcal polysaccharide vaccine, 23 valent Rupa FALLONTTEL [facility] 10-11-2015 influenza virus vacc ine, unspecified formulation Ellen Butt [facility] 10-05-2013 influenza virus vacc ine, unspecified formulation Ellen Butt [facility] 03-25-2013 pneumococcal polysaccharide vaccine, 23 valent Ellen Butt [facility] 12-03-2012 influenza virus vacc ine, unspecified formulation Ellen Butt [facility] 11-05-2012 zoster vaccine, live Ellen Butt [facility] Payers Date Payer Category Payer Unknown [employer] M [employer] [id number] 2022-Present [address] [place] [address] [id number] 2022 Self-pay [id number] 2015 Medicare MEDICARE MEDICAR E PART B [id number] 2015-Present [address] [address] [place] [address] Medicare [id number] 1959 Medicare [id number] 1959 Unknown [id number] 1950 Unknown [id number] [id number]3 1950 Unknown [id number] 2.16.840.1.987605.3.579.2.593 1950 Unknown [id number] 2.16.840.1.166960.3.579.2.593 1950 Unknown [id number] 2.16.840.1.614600.3.579.2.593 1950 Unknown [id number] 2.16.840.1.457586.3.579.2.1259 1950 Unknown [id number] 2.16.840.1.482151.3.579.2.1259 1950 Unknown [id number] 2.16.840.1.709109.3.579.2.1259 1950 Unknown [id number] 2.16.840.1.168848.3.579.2.1259 1950 Unknown [id number] 2.16.840.1.111395.3.579.2.1259 1950 Unknown [id number] 2.16.840.1.523148.3.579.2.1259 1950 Unknown [id number] 2.16.840.1.859147.3.579.2.1259 1950 Unknown [id number] 2.16.840.1.575496.3.579.2.1259 1950 Unknown [id number] 2.16.840.1.657366.3.579.2.1259 1950 Unknown [id number] 2.16.840.1.872775.3.579.2.727 1950 Unknown [id number] 2.16.840.1.463525.3.579.2.727 1950 Unknown [id number] 2.16.840.1.110350.3.579.2.727 1950 Unknown [id number] 2.16.840.1.104920.3.579.2.727 1950 Unknown [id number] 2.16.840.1.778098.3.579.2.727 1950 Unknown [id number] 2.16.840.1.799547.3.579.2.727 1950 Unknown [id number] 2.16.840.1.405905.3.579.2.727 1950 Unknown [id number] 2.16.840.1.271575.3.579.2.727 Unknown Standard LIfe Ins [id number] Unknown [id number] [id number]1 Social History Date Type Detail Facility Start: 04-10-2022 End: 05-04-2024 Tobacco smoking status Never smoked tobacco (finding) [facility] Comment on above: denies use Tobacco smoking status Never [facility] Comment on above: denies use Start: 11-21-2023 Sex Assigned At Female [facility] Start: 1950 Sex Assigned At Female [facility] Start: 07-04-2023 Tobacco use and exposure Smokeless tobacco non-user [facility] Start: 11-21-2023 End: 12-27-2023 Alcohol intake Lifetime non-drinker (finding) [facility] Start: 11-21-2023 History of Social function [facility] Start: 1950 Sex Assigned At Not on file [facility] NEGATED: Highlighted rowStart: NINF History of tobacco use Passive smoker [facility] Medical Equipment Procedure Code Equipment Code Equipment Origin al Text Equipment Identifier Dates [id number] FDA Start: 11-01-2020 [id number] FDA Start: 11-15-2020 TOE JOINT [employer] FDA Start: 10-15-2018 Functional Status Date Assessment Result Facility 05-04-2024 Functional Status No [facility] 04-08-2024 Functional Status N/A [facility] 01-29-2024 Functional Status N/A [facility] 12-09-2023 Functional Status N/A [facility] 10-23-2023 Functional Status N/A [facility] 06-21-2022 Functional Status No [facility] 05-21-2022 Functional Status No [facility] Clinical Notes 10-02-2021 to 03-18-2024 Harper Flores - 12/27/2023 8:30 AM ESTTodd DONAL Lewis - 12/27/2023 8:30 AM ESTPatient Instructions Note Date & Type Note Facility 03-18-2024 Hospital Discharge instructions Patient Education 03/18/2024 12:27:56 Health Maintenance, Female Health Maintenance, Female Adopting a healthy lifestyle and getting preventive care are important in promoting health and wellness. Ask your health care provider about: The right schedule for you to have regular tests and exams. Things you can do on your own to prevent diseases and keep yourself healthy. What should I know about diet, weight, and exercise? Eat a healthy diet Eat a diet that includes plenty of vegetables, fruits, low-fat dairy products, and lean protein. Do not eat a lot of foods that are high in solid fats, added sugars, or sodium. Maintain a healthy weight Body mass index (BMI) is used to identify weight problems. It estimates body fat based on height and weight. Your health care provider can help determine your BMI and help you achieve or maintain a healthy weight. Get regular exercise Get regular exercise. This is one of the most important things you can do for your health. Most adults should: Exercise for at least 150 minutes each week. The exercise should increase your heart rate and make you sweat (moderate-intensity exercise). Do strengthening exercises at least twice a week. This is in addition to the moderate-intensity exercise. Spend less time sitting. Even light physical activity can be beneficial. Watch cholesterol and blood lipids Have your blood tested for lipids and cholesterol at 20 years of age, then have this test every 5 years. Have your cholesterol levels checked more often if: Your lipid or cholesterol levels are high. You are older than 40 years of age. You are at high risk for heart disease. What should I know about cancer screening? Depending on your health history and family history, you may need to have cancer screening at various ages. This may include screening for: Breast cancer. Cervical cancer. Colorectal cancer. Skin cancer. Lung cancer. What should I know about heart disease, diabetes, and high blood pressure? Blood pressure and heart disease High blood pressure causes heart disease and increases the risk of stroke. This is more likely to develop in people who have high blood pressure readings or are overweight. Have your blood pressure checked: ?Every 3 5 years if you are 18 39 years of age. ?Every year if you are 40 years old or older. Diabetes Have regular diabetes screenings. This checks your fasting blood sugar level. Have the screening done: Once every three years after age 40 if you are at a normal weight and have a low risk for diabetes. More often and at a younger age if you are overweight or have a high risk for diabetes. What should I know about preventing infection? Hepatitis B If you have a higher risk for hepatitis B, you should be screened for this virus. Talk with your health care provider to find out if you are at risk for hepatitis B infection. Hepatitis C Testing is recommended for: Everyone born from 1945 through 1965. Anyone with known risk factors for hepatitis C. Sexually transmitted infections (STIs) Get screened for STIs, including gonorrhea and chlamydia, if: ?You are sexually active and are younger than 24 years of age. ?You are older than 24 years of age and your health care provider tells you that you are at risk for this type of infection. ?Your sexual activity has changed since you were last screened, and you are at increased risk for chlamydia or gonorrhea. Ask your health care provider if you are at risk. Ask your health care provider about whether you are at high risk for HIV. Your health care provider may recommend a prescription medicine to help prevent HIV infection. If you choose to take medicine to prevent HIV, you should first get tested for HIV. You should then be tested every 3 months for as long as you are taking the medicine. If you are about to stop having your period (premenopausal) and you may become , seek counseling before you get . Take 400 to 800 micrograms (mcg) of folic acid every day if you become . Ask for control (contraception) if you want to prevent . Osteoporosis and menopause Osteoporosis is a disease in which the bones lose minerals and strength with aging. This can result in bone fractures. If you are 65 years old or older, or if you are at risk for osteoporosis and fractures, ask your health care provider if you should: Be screened for bone loss. Take a calcium or vitamin D supplement to lower your risk of fractures. Be given hormone replacement therapy (HRT) to treat symptoms of menopause. Follow these instructions at home: Alcohol use Do not drink alcohol if: ?Your health care provider tells you not to drink. ?You are , may be , or are planning to become . If you drink alcohol: ?Limit how much you have to: ?0 1 drink a day. ?Know how much alcohol is in your drink. In the [place] one drink equals one 12 oz bottle of beer (355 mL), one 5 oz glass of wine (148 mL), or one 1 oz glass of hard liquor (44 mL). Lifestyle Do not use any products that contain nicotine or tobacco. These products include cigarettes, chewing tobacco, and vaping devices, such as e-cigarettes. If you need help quitting, ask your health care provider. Do not use street drugs. Do not share needles. Ask your health care provider for help if you need support or information about quitting drugs. General instructions Schedule regular health, dental, and eye exams. Stay current with your vaccines. Tell your health care provider if: ?You often feel depressed. ?You have ever been abused or do not feel safe at home. Summary Adopting a healthy lifestyle and getting preventive care are important in promoting health and wellness. Follow your health care provider's instructions about healthy diet, exercising, and getting tested or screened for diseases. Follow your health care provider's instructions on monitoring your cholesterol and blood pressure. This information is not intended to replace advice given to you by your health care provider. Make sure you discuss any questions you have with your health care provider. Document Revised: 04/02/2022 Document Reviewed: 04/02/2022 [employer] Patient Education 2022 [employer]. 03/18/2024 12:27:54 Health Maintenance After Age 65 Health Maintenance After Age 65 After age 65, you are at a higher risk for certain long-term diseases and infections as well as injuries from falls. Falls are a major cause of broken bones and head injuries in people who are older than age 65. Getting regular preventive care can help to keep you healthy and well. Preventive care includes getting regular testing and making lifestyle changes as recommended by your health care provider. Talk with your health care provider about: Which screenings and tests you should have. A screening is a test that checks for a disease when you have no symptoms. A diet and exercise plan that is right for you. What should I know about screenings and tests to prevent falls? Screening and testing are the best ways to find a health problem early. Early diagnosis and treatment give you the best chance of managing medical conditions that are common after age 65. Certain conditions and lifestyle choices may make you more likely to have a fall. Your health care provider may recommend: Regular vision checks. Poor vision and conditions such as cataracts can make you more likely to have a fall. If you wear glasses, make sure to get your prescription updated if your vision changes. Medicine review. Work with your health care provider to regularly review all of the medicines you are taking, including okzt-hli-fflpitk medicines. Ask your health care provider about any side effects that may make you more likely to have a fall. Tell your health care provider if any medicines that you take make you feel dizzy or sleepy. Strength and balance checks. Your health care provider may recommend certain tests to check your strength and balance while standing, walking, or changing positions. Foot health exam. Foot pain and numbness, as well as not wearing proper footwear, can make you more likely to have a fall. Screenings, including: ?Osteoporosis screening. Osteoporosis is a condition that causes the bones to get weaker and break more easily. ?Blood pressure screening. Blood pressure changes and medicines to control blood pressure can make you feel dizzy. ?Depression screening. You may be more likely to have a fall if you have a fear of falling, feel depressed, or feel unable to do activities that you used to do. ?Alcohol use screening. Using too much alcohol can affect your balance and may make you more likely to have a fall. Follow these instructions at home: Lifestyle Do not drink alcohol if: ?Your health care provider tells you not to drink. If you drink alcohol: ?Limit how much you have to: ?0 1 drink a day for women. ?0 2 drinks a day for men. ?Know how much alcohol is in your drink. In the [place] one drink equals one 12 oz bottle of beer (355 mL), one 5 oz glass of wine (148 mL), or one 1 oz glass of hard liquor (44 mL). Do not use any products that contain nicotine or tobacco. These products include cigarettes, chewing tobacco, and vaping devices, such as e-cigarettes. If you need help quitting, ask your health care provider. Activity Follow a regular exercise program to stay fit. This will help you maintain your balance. Ask your health care provider what types of exercise are appropriate for you. If you need a cane or walker, use it as recommended by your health care provider. Wear supportive shoes that have nonskid soles. Safety Remove any tripping hazards, such as rugs, cords, and clutter. Install safety equipment such as grab bars in bathrooms and safety rails on stairs. Keep rooms and walkways well-lit. General instructions Talk with your health care provider about your risks for falling. Tell your health care provider if: ?You fall. Be sure to tell your health care provider about all falls, even ones that seem minor. ?You feel dizzy, tiredness (fatigue), or off-balance. Take yvfq-tpy-afvcwcy and prescription medicines only as told by your health care provider. These include supplements. Eat a healthy diet and maintain a healthy weight. A healthy diet includes low-fat dairy products, low-fat (lean) meats, and fiber from whole grains, beans, and lots of fruits and vegetables. Stay current with your vaccines. Schedule regular health, dental, and eye exams. Summary Having a healthy lifestyle and getting preventive care can help to protect your health and wellness after age 65. Screening and testing are the best way to find a health problem early and help you avoid having a fall. Early diagnosis and treatment give you the best chance for managing medical conditions that are more common for people who are older than age 65. Falls are a major cause of broken bones and head injuries in people who are older than age 65. Take precautions to prevent a fall at home. Work with your health care provider to learn what changes you can make to improve your health and wellness and to prevent falls. This information is not intended to replace advice given to you by your health care provider. Make sure you discuss any questions you have with your health care provider. Document Revised: 04/02/2022 Document Reviewed: 04/02/2022 [employer] Patient Education 2022 [employer]. 03/18/2024 12:27:52 Dyslipidemia Dyslipidemia Dyslipidemia is an imbalance of waxy, fat-like substances (lipids) in the blood. The body needs lipids in small amounts. Dyslipidemia often involves a high level of cholesterol or triglycerides, which are types of lipids. Common forms of dyslipidemia include: High levels of LDL cholesterol. LDL is the type of cholesterol that causes fatty deposits (plaques) to build up in the blood vessels that carry blood away from the heart (arteries). Low levels of HDL cholesterol. HDL cholesterol is the type of cholesterol that protects against heart disease. High levels of HDL remove the LDL buildup from arteries. High levels of triglycerides. Triglycerides are a fatty substance in the blood that is linked to a buildup of plaques in the arteries. What are the causes? There are two main types of dyslipidemia: primary and secondary. Primary dyslipidemia is caused by changes (mutations) in genes that are passed down through families (inherited). These mutations cause several types of dyslipidemia. Secondary dyslipidemia may be caused by various risk factors that can lead to the disease, such as lifestyle choices and certain medical conditions. What increases the risk? You are more likely to develop this condition if you are an older man or if you are a woman who has gone through menopause. Other risk factors include: Having a family history of dyslipidemia. Taking certain medicines, including control pills, steroids, some diuretics, and beta-blockers. Eating a diet high in saturated fat. Smoking cigarettes or excessive alcohol intake. Having certain medical conditions such as diabetes, polycystic ovary syndrome (PCOS), kidney disease, liver disease, or hypothyroidism. Not exercising regularly. Being overweight or obese with too much belly fat. What are the signs or symptoms? In most cases, dyslipidemia does not usually cause any symptoms. In severe cases, very high lipid levels can cause: Fatty bumps under the skin (xanthomas). A white or el ring around the black center (pupil) of the eye. Very high triglyceride levels can cause inflammation of the pancreas (pancreatitis). How is this diagnosed? Your health care provider may diagnose dyslipidemia based on a routine blood test (fasting blood test). Because most people do not have symptoms of the condition, this blood testing (lipid profile) is done on adults age 20 and older and is repeated every 4-6 years. This test checks: Total cholesterol. This measures the total amount of cholesterol in your blood, including LDL cholesterol, HDL cholesterol, and triglycerides. A healthy number is below 200 mg/dL (5.17 mmol/L). LDL cholesterol. The target number for LDL cholesterol is different for each person, depending on individual risk factors. A healthy number is usually below 100 mg/dL (2.59 mmol/L). Ask your health care provider what your LDL cholesterol should be. HDL cholesterol. An HDL level of 60 mg/dL (1.55 mmol/L) or higher is best because it helps to protect against heart disease. A number below 40 mg/dL (1.03 mmol/L) for men or below 50 mg/dL (1.29 mmol/L) for women increases the risk for heart disease. Triglycerides. A healthy triglyceride number is below 150 mg/dL (1.69 mmol/L). If your lipid profile is abnormal, your health care provider may do other blood tests. How is this treated? Treatment depends on the type of dyslipidemia that you have and your other risk factors for heart disease and stroke. Your health care provider will have a target range for your lipid levels based on this information. Treatment for dyslipidemia starts with lifestyle changes, such as diet and exercise. Your health care provider may recommend that you: Get regular exercise. Make changes to your diet. Quit smoking if you smoke. Limit your alcohol intake. If diet changes and exercise do not help you reach your goals, your health care provider may also prescribe medicine to lower lipids. The most commonly prescribed type of medicine lowers your LDL cholesterol (statin drug). If you have a high triglyceride level, your provider may prescribe another type of drug (fibrate) or an omega-3 fish oil supplement, or both. Follow these instructions at home: Eating and drinking Follow instructions from your health care provider or dietitian about eating or drinking restrictions. Eat a healthy diet as told by your health care provider. This can help you reach and maintain a healthy weight, lower your LDL cholesterol, and raise your HDL cholesterol. This may include: ?Limiting your calories, if you are overweight. ?Eating more fruits, vegetables, whole grains, fish, and lean meats. ?Limiting saturated fat, trans fat, and cholesterol. Do not drink alcohol if: ?Your health care provider tells you not to drink. ?You are , may be , or are planning to become . If you drink alcohol: ?Limit how much you have to: ?0 1 drink a day for women. ? 0 2 drinks a day for men. ?Know how much alcohol is in your drink. In the [place] one drink equals one 12 oz bottle of beer (355 mL), one 5 oz glass of wine (148 mL), or one 1 oz glass of hard liquor (44 mL). Activity Get regular exercise. Start an exercise and strength training program as told by your health care provider. Ask your health care provider what activities are safe for you. Your health care provider may recommend: ?30 minutes of aerobic activity 4 6 days a week. Brisk walking is an example of aerobic activity. ?Strength training 2 days a week. General instructions Do not use any products that contain nicotine or tobacco. These products include cigarettes, chewing tobacco, and vaping devices, such as e-cigarettes. If you need help quitting, ask your health care provider. Take walz-ffh-tnxrbtt and prescription medicines only as told by your health care provider. This includes supplements. Keep all follow-up visits. This is important. Contact a health care provider if: You are having trouble sticking to your exercise or diet plan. You are struggling to quit smoking or to control your use of alcohol. Summary Dyslipidemia often involves a high level of cholesterol or triglycerides, which are types of lipids. Treatment depends on the type of dyslipidemia that you have and your other risk factors for heart disease and stroke. Treatment for dyslipidemia starts with lifestyle changes, such as diet and exercise. Your health care provider may prescribe medicine to lower lipids. This information is not intended to replace advice given to you by your health care provider. Make sure you discuss any questions you have with your health care provider. Document Revised: 01/15/2022 Document Reviewed: 01/15/2022 [employer] Patient Education 2022 [employer]. 03/18/2024 12:27:51 Diabetes Mellitus and Nutrition, Adult Diabetes Mellitus and Nutrition, Adult When you have diabetes, or diabetes mellitus, it is very important to have healthy eating habits because your blood sugar (glucose) levels are greatly affected by what you eat and drink. Eating healthy foods in the right amounts, at about the same times every day, can help you: Manage your blood glucose. Lower your risk of heart disease. Improve your blood pressure. Reach or maintain a healthy weight. What can affect my meal plan? Every person with diabetes is different, and each person has different needs for a meal plan. Your health care provider may recommend that you work with a dietitian to make a meal plan that is best for you. Your meal plan may vary depending on factors such as: The calories you need. The medicines you take. Your weight. Your blood glucose, blood pressure, and cholesterol levels. Your activity level. Other health conditions you have, such as heart or kidney disease. How do carbohydrates affect me? Carbohydrates, also called carbs, affect your blood glucose level more than any other type of food. Eating carbs raises the amount of glucose in your blood. It is important to know how many carbs you can safely have in each meal. This is different for every person. Your dietitian can help you calculate how many carbs you should have at each meal and for each snack. How does alcohol affect me? Alcohol can cause a decrease in blood glucose (hypoglycemia), especially if you use insulin or take certain diabetes medicines by mouth. Hypoglycemia can be a life-threatening condition. Symptoms of hypoglycemia, such as sleepiness, dizziness, and confusion, are similar to symptoms of having too much alcohol. Do not drink alcohol if: ?Your health care provider tells you not to drink. ?You are , may be , or are planning to become . If you drink alcohol: ?Limit how much you have to: ?0 1 drink a day for women. ?0 2 drinks a day for men. ?Know how much alcohol is in your drink. In the [place] one drink equals one 12 oz bottle of beer (355 mL), one 5 oz glass of wine (148 mL), or one 1 oz glass of hard liquor (44 mL). ?Keep yourself hydrated with water, diet soda, or unsweetened iced tea. Keep in mind that regular soda, juice, and other mixers may contain a lot of sugar and must be counted as carbs. What are tips for following this plan? Reading food labels Start by checking the serving size on the Nutrition Facts label of packaged foods and drinks. The number of calories and the amount of carbs, fats, and other nutrients listed on the label are based on one serving of the item. Many items contain more than one serving per package. Check the total grams (g) of carbs in one serving. Check the number of grams of saturated fats and trans fats in one serving. Choose foods that have a low amount or none of these fats. Check the number of milligrams (mg) of salt (sodium) in one serving. Most people should limit total sodium intake to less than 2,300 mg per day. Always check the nutrition information of foods labeled as low-fat or nonfat. These foods may be higher in added sugar or refined carbs and should be avoided. Talk to your dietitian to identify your daily goals for nutrients listed on the label. Shopping Avoid buying canned, pre-made, or processed foods. These foods tend to be high in fat, sodium, and added sugar. Shop around the outside edge of the grocery store. This is where you will most often find fresh fruits and vegetables, bulk grains, fresh meats, and fresh dairy products. Cooking Use low-heat cooking methods, such as baking, instead of high-heat cooking methods, such as deep frying. Cook using healthy oils, such as olive, canola, or sunflower oil. Avoid cooking with butter, cream, or high-fat meats. Meal planning Eat meals and snacks regularly, preferably at the same times every day. Avoid going long periods of time without eating. Eat foods that are high in fiber, such as fresh fruits, vegetables, beans, and whole grains. Eat 4 6 oz (112 168 g) of lean protein each day, such as lean meat, chicken, fish, eggs, or tofu. One ounce (oz) (28 g) of lean protein is equal to: ?1 oz (28 g) of meat, chicken, or fish. ?1 egg. ? cup (62 g) of tofu. Eat some foods each day that contain healthy fats, such as avocado, nuts, seeds, and fish. What foods should I eat? Fruits Berries. Apples. Oranges. Peaches. Apricots. Plums. Grapes. Mangoes. Papayas. Pomegranates. Kiwi. Cherries. Vegetables Leafy greens, including lettuce, spinach, kale, chard, adama greens, mustard greens, and cabbage. Beets. Cauliflower. Broccoli. Carrots. Green beans. Tomatoes. Peppers. Onions. Cucumbers. [place] sprouts. Grains Whole grains, such as whole-wheat or whole-grain bread, crackers, tortillas, cereal, and pasta. Unsweetened oatmeal. Quinoa. Brown or wild rice. Meats and other proteins Seafood. Poultry without skin. Lean cuts of poultry and beef. Tofu. Nuts. Seeds. Dairy Low-fat or fat-free dairy products such as milk, yogurt, and cheese. The items listed above may not be a complete list of foods and beverages you can eat and drink. Contact a dietitian for more information. What foods should I avoid? Fruits Fruits canned with syrup. Vegetables Canned vegetables. Frozen vegetables with butter or cream sauce. Grains Refined white flour and flour products such as bread, pasta, snack foods, and cereals. Avoid all processed foods. Meats and other proteins Fatty cuts of meat. Poultry with skin. Breaded or fried meats. Processed meat. Avoid saturated fats. Dairy Full-fat yogurt, cheese, or milk. Beverages Sweetened drinks, such as soda or iced tea. The items listed above may not be a complete list of foods and beverages you should avoid. Contact a dietitian for more information. Questions to ask a health care provider Do I need to meet with a certified diabetes care and health education coordinator? Do I need to meet with a dietitian? What number can I call if I have questions? When are the best times to check my blood glucose? Where to find more information: [place] [employer]: diabetes.org Academy of Nutrition and Dietetics: eatright.org National [place] of Diabetes and Digestive and Kidney Diseases: niddk.nih.gov Association of Diabetes Care & Education Specialists: diabeteseducator.org Summary It is important to have healthy eating habits because your blood sugar (glucose) levels are greatly affected by what you eat and drink. It is important to use alcohol carefully. A healthy meal plan will help you manage your blood glucose and lower your risk of heart disease. Your health care provider may recommend that you work with a dietitian to make a meal plan that is best for you. This information is not intended to replace advice given to you by your health care provider. Make sure you discuss any questions you have with your health care provider. Document Revised: 06/14/2021 Document Reviewed: 06/14/2021 [employer] Patient Education 2022 [employer]. 03/18/2024 12:27:50 DASH Eating Plan DASH Eating Plan DASH stands for Dietary Approaches to Stop Hypertension. The DASH eating plan is a healthy eating plan that has been shown to: Reduce high blood pressure (hypertension). Reduce your risk for type 2 diabetes, heart disease, and stroke. Help with weight loss. What are tips for following this plan? Reading food labels Check food labels for the amount of salt (sodium) per serving. Choose foods with less than 5 percent of the Daily Value of sodium. Generally, foods with less than 300 milligrams (mg) of sodium per serving fit into this eating plan. To find whole grains, look for the word whole as the first word in the ingredient list. Shopping Buy products labeled as low-sodium or no salt added. Buy fresh foods. Avoid canned foods and pre-made or frozen meals. Cooking Avoid adding salt when cooking. Use salt-free seasonings or herbs instead of table salt or sea salt. Check with your health care provider or pharmacist before using salt substitutes. Do not alba foods. Cook foods using healthy methods such as baking, boiling, grilling, roasting, and broiling instead. Cook with heart-healthy oils, such as olive, canola, avocado, soybean, or sunflower oil. Meal planning Eat a balanced diet that includes: ?4 or more servings of fruits and 4 or more servings of vegetables each day. Try to fill one-half of your plate with fruits and vegetables. ?6 8 servings of whole grains each day. ?Less than 6 oz (170 g) of lean meat, poultry, or fish each day. A 3-oz (85-g) serving of meat is about the same size as a deck of cards. One egg equals 1 oz (28 g). ?2 3 servings of low-fat dairy each day. One serving is 1 cup (237 mL). ?1 serving of nuts, seeds, or beans 5 times each week. ?2 3 servings of heart-healthy fats. Healthy fats called omega-3 fatty acids are found in foods such as walnuts, flaxseeds, fortified milks, and eggs. These fats are also found in cold-water fish, such as sardines, salmon, and mackerel. Limit how much you eat of: ?Canned or prepackaged foods. ?Food that is high in trans fat, such as some fried foods. ?Food that is high in saturated fat, such as fatty meat. ?Desserts and other sweets, sugary drinks, and other foods with added sugar. ?Full-fat dairy products. Do not salt foods before eating. Do not eat more than 4 egg yolks a week. Try to eat at least 2 vegetarian meals a week. Eat more home-cooked food and less restaurant, buffet, and fast food. Lifestyle When eating at a restaurant, ask that your food be prepared with less salt or no salt, if possible. If you drink alcohol: ?Limit how much you use to: ?0 1 drink a day for women who are not . ?0 2 drinks a day for men. ?Be aware of how much alcohol is in your drink. In the [place] one drink equals one 12 oz bottle of beer (355 mL), one 5 oz glass of wine (148 mL), or one 1 oz glass of hard liquor (44 mL). General information Avoid eating more than 2,300 mg of salt a day. If you have hypertension, you may need to reduce your sodium intake to 1,500 mg a day. Work with your health care provider to maintain a healthy body weight or to lose weight. Ask what an ideal weight is for you. Get at least 30 minutes of exercise that causes your heart to beat faster (aerobic exercise) most days of the week. Activities may include walking, swimming, or biking. Work with your health care provider or dietitian to adjust your eating plan to your individual calorie needs. What foods should I eat? Fruits All fresh, dried, or frozen fruit. Canned fruit in natural juice (without added sugar). Vegetables Fresh or frozen vegetables (raw, steamed, roasted, or grilled). Low-sodium or reduced-sodium tomato and vegetable juice. Low-sodium or reduced-sodium tomato sauce and tomato paste. Low-sodium or reduced-sodium canned vegetables. Grains Whole-grain or whole-wheat bread. Whole-grain or whole-wheat pasta. Brown rice. Oatmeal. Quinoa. Bulgur. Whole-grain and low-sodium cereals. Tracey bread. Low-fat, low-sodium crackers. Whole-wheat flour tortillas. Meats and other proteins Skinless chicken or turkey. Ground chicken or turkey. Pork with fat trimmed off. Fish and seafood. Egg whites. Dried beans, peas, or lentils. Unsalted nuts, nut butters, and seeds. Unsalted canned beans. Lean cuts of beef with fat trimmed off. Low-sodium, lean precooked or cured meat, such as sausages or meat loaves. Dairy Low-fat (1%) or fat-free (skim) milk. Reduced-fat, low-fat, or fat-free cheeses. Nonfat, low-sodium ricotta or cottage cheese. Low-fat or nonfat yogurt. Low-fat, low-sodium cheese. Fats and oils Soft margarine without trans fats. Vegetable oil. Reduced-fat, low-fat, or light mayonnaise and salad dressings (reduced-sodium). Canola, safflower, olive, avocado, soybean, and sunflower oils. Avocado. Seasonings and condiments Herbs. Spices. Seasoning mixes without salt. Other foods Unsalted popcorn and pretzels. Fat-free sweets. The items listed above may not be a complete list of foods and beverages you can eat. Contact a dietitian for more information. What foods should I avoid? Fruits Canned fruit in a light or heavy syrup. Fried fruit. Fruit in cream or butter sauce. Vegetables Creamed or fried vegetables. Vegetables in a cheese sauce. Regular canned vegetables (not low-sodium or reduced-sodium). Regular canned tomato sauce and paste (not low-sodium or reduced-sodium). Regular tomato and vegetable juice (not low-sodium or reduced-sodium). Pickles. Olives. Grains Baked goods made with fat, such as croissants, muffins, or some breads. Dry pasta or rice meal packs. Meats and other proteins Fatty cuts of meat. Ribs. Fried meat. Quintana. Bologna, salami, and other precooked or cured meats, such as sausages or meat loaves. Fat from the back of a pig (fatback). Bratwurst. Salted nuts and seeds. Canned beans with added salt. Canned or smoked fish. Whole eggs or egg yolks. Chicken or turkey with skin. Dairy Whole or 2% milk, cream, and [id number]. Whole or full-fat cream cheese. Whole-fat or sweetened yogurt. Full-fat cheese. Nondairy creamers. Whipped toppings. Processed cheese and cheese spreads. Fats and oils Butter. Stick margarine. Lard. Shortening. Ghee. Quintana fat. Tropical oils, such as coconut, palm kernel, or palm oil. Seasonings and condiments Onion salt, garlic salt, seasoned salt, table salt, and sea salt. Worcestershire sauce. Tartar sauce. Barbecue sauce. Teriyaki sauce. Soy sauce, including reduced-sodium. Steak sauce. Canned and packaged gravies. Fish sauce. Oyster sauce. Cocktail sauce. Store-bought horseradish. Ketchup. Mustard. Meat flavorings and tenderizers. Bouillon cubes. Hot sauces. Pre-made or packaged marinades. Pre-made or packaged taco seasonings. Relishes. Regular salad dressings. Other foods Salted popcorn and pretzels. The items listed above may not be a complete list of foods and beverages you should avoid. Contact a dietitian for more information. Where to find more information National Heart, Lung, and Blood [place]: www.nhlbi.nih.gov [place] [employer]: www.heart.org Academy of Nutrition and Dietetics: www.eatright.org National Kidney Foundation: www.kidney.org Summary The DASH eating plan is a healthy eating plan that has been shown to reduce high blood pressure (hypertension). It may also reduce your risk for type 2 diabetes, heart disease, and stroke. When on the DASH eating plan, aim to eat more fresh fruits and vegetables, whole grains, lean proteins, low-fat dairy, and heart-healthy fats. With the DASH eating plan, you should limit salt (sodium) intake to 2,300 mg a day. If you have hypertension, you may need to reduce your sodium intake to 1,500 mg a day. Work with your health care provider or dietitian to adjust your eating plan to your individual calorie needs. This information is not intended to replace advice given to you by your health care provider. Make sure you discuss any questions you have with your health care provider. Document Revised: 10/14/2020 Document Reviewed: 10/14/2020 [employer] Patient Education 2022 [employer]. 03/18/2024 12:27:49 Blood Glucose Monitoring, Adult Blood Glucose Monitoring, Adult Monitoring your blood sugar (glucose) is an important part of managing your diabetes. Blood glucose monitoring involves checking your blood glucose as often as directed and keeping a log or record of your results over time. Checking your blood glucose regularly and keeping a blood glucose log can: Help you and your health care provider adjust your diabetes management plan as needed, including your medicines or insulin. Help you understand how food, exercise, illnesses, and medicines affect your blood glucose. Let you know what your blood glucose is at any time. You can quickly find out if you have low blood glucose (hypoglycemia) or high blood glucose (hyperglycemia). Your health care provider will set individualized treatment goals for you. Your goals will be based on your age, other medical conditions you have, and how you respond to diabetes treatment. Generally, the goal of treatment is to maintain the following blood glucose levels: Before meals (preprandial): 80 130 mg/dL (4.4 7.2 mmol/L). After meals (postprandial): below 180 mg/dL (10 mmol/L). A1C level: less than 7%. Supplies needed: Blood glucose meter. Test strips for your meter. Each meter has its own strips. You must use the strips that came with your meter. A needle to prick your finger (lancet). Do not use a lancet more than one time. A device that holds the lancet (lancing device). A journal or log book to write down your results. How to check your blood glucose Checking your blood glucose 1.Wash your hands for at least 20 seconds with soap and water. 2.Prick the side of your finger (not the tip) with the lancet. Do not use the same finger consecutively. 3.Gently rub the finger until a small drop of blood appears. 4.Follow instructions that come with your meter for inserting the test strip, applying blood to the strip, and using your blood glucose meter. 5.Write down your result and any notes in your log. Using alternative sites Some meters allow you to use areas of your body other than your finger (alternative sites) to test your blood. The most common alternative sites are the forearm, the thigh, and the palm of your hand. Alternative sites may not be as accurate as the fingers because blood flow is slower in those areas. This means that the result you get may be delayed, and it may be different from the result that you would get from your finger. Use the finger only, and do not use alternative sites, if: You think you have hypoglycemia. You sometimes do not know that your blood glucose is getting low (hypoglycemia unawareness). General tips and recommendations Blood glucose log Every time you check your blood glucose, write down your result. Also write down any notes about things that may be affecting your blood glucose, such as your diet and exercise for the day. This information can help you and your health care provider: ?Look for patterns in your blood glucose over time. ?Adjust your diabetes management plan as needed. Check if your meter allows you to download your records to a computer or if there is an senia for the meter. Most glucose meters store a record of glucose readings in the meter. If you have type 1 diabetes: Check your blood glucose 4 or more times a day if you are on intensive insulin therapy with multiple daily injections (MDI) or if you are using an insulin pump. Check your blood glucose: ?Before every meal and snack. ?Before bedtime. Also check your blood glucose: ?If you have symptoms of hypoglycemia. ?After treating low blood glucose. ?Before doing activities that create a risk for injury, like driving or using machinery. ?Before and after exercise. ?Two hours after a meal. ?Occasionally between 2:00 a.m. and 3:00 a.m., as directed. You may need to check your blood glucose more often, 6 10 times per day, if: ?You have diabetes that is not well controlled. ?You are ill. ?You have a history of severe hypoglycemia. ?You have hypoglycemia unawareness. If you have type 2 diabetes: Check your blood glucose 2 or more times a day if you take insulin or other diabetes medicines. Check your blood glucose 4 or more times a day if you are on intensive insulin therapy. Occasionally, you may also need to check your glucose between 2:00 a.m. and 3:00 a.m., as directed. Also check your blood glucose: ?Before and after exercise. ?Before doing activities that create a risk for injury, like driving or using machinery. You may need to check your blood glucose more often if: ?Your medicine is being adjusted. ?Your diabetes is not well controlled. ?You are ill. General tips Make sure you always have your supplies with you. After you use a few boxes of test strips, adjust (calibrate) your blood glucose meter by following instructions that came with your meter. If you have questions or need help, all blood glucose meters have a 24-hour hotline phone number available that you can call. Also contact your health care provider with questions or concerns you may have. Where to find more information The [place] [employer] Association: www.diabetes.org The Association of Diabetes Care & Education Specialists: www.diabeteseducator.org Contact a health care provider if: Your blood glucose is at or above 240 mg/dL (13.3 mmol/L) for 2 days in a row. You have been sick or have had a fever for 2 days or longer, and you are not getting better. You have any of the following problems for more than 6 hours: ?You cannot eat or drink. ?You have nausea or vomiting. ?You have diarrhea. Get help right away if: Your blood glucose is lower than 54 mg/dL (3 mmol/L). You become confused, or you have trouble thinking clearly. You have difficulty breathing. You have moderate or large ketone levels in your urine. These symptoms may represent a serious problem that is an emergency. Do not wait to see if the symptoms will go away. Get medical help right away. Call your local emergency services (911 in the [place] Do not drive yourself to the hospital. Summary Monitoring your blood glucose is an important part of managing your diabetes. Blood glucose monitoring involves checking your blood glucose as often as directed and keeping a log or record of your results over time. Your health care provider will set individualized treatment goals for you. Your goals will be based on your age, other medical conditions you have, and how you respond to diabetes treatment. Every time you check your blood glucose, write down your result. Also, write down any notes about things that may be affecting your blood glucose, such as your diet and exercise for the day. This information is not intended to replace advice given to you by your health care provider. Make sure you discuss any questions you have with your health care provider. Document Revised: 08/09/2021 Document Reviewed: 08/09/2021 [employer] Patient Education 2022 [employer]. Follow Up Care 03/27/2023 08:59:37 With:Ellen Carlos Address: [address] [place] [address], [facility] [place] [address]- When:Within 6 Month(s) Comments:[facility] 01-29-2024 Hospital Discharge instructions Patient Education 01/29/2024 09:22:42 Prediabetes Prediabetes Prediabetes is when your blood sugar (blood glucose) level is higher than normal but not high enough for you to be diagnosed with type 2 diabetes. Having prediabetes puts you at risk for developing type 2 diabetes (type 2 diabetes mellitus). With certain lifestyle changes, you may be able to prevent or delay the onset of type 2 diabetes. This is important because type 2 diabetes can lead to serious complications, such as: Heart disease. Stroke. Blindness. Kidney disease. Depression. Poor circulation in the feet and legs. In severe cases, this could lead to surgical removal of a leg (amputation). What are the causes? The exact cause of prediabetes is not known. It may result from insulin resistance. Insulin resistance develops when cells in the body do not respond properly to insulin that the body makes. This can cause excess glucose to build up in the blood. High blood glucose (hyperglycemia) can develop. What increases the risk? The following factors may make you more likely to develop this condition: You have a family member with type 2 diabetes. You are older than 45 years. You had a temporary form of diabetes during a (gestational diabetes). You had polycystic ovary syndrome (PCOS). You are overweight or obese. You are inactive (sedentary). You have a history of heart disease, including problems with cholesterol levels, high levels of blood fats, or high blood pressure. What are the signs or symptoms? You may have no symptoms. If you do have symptoms, they may include: Increased hunger. Increased thirst. Increased urination. Vision changes, such as blurry vision. Tiredness (fatigue). How is this diagnosed? This condition can be diagnosed with blood tests. Your blood glucose may be checked with one or more of the following tests: A fasting blood glucose (FBG) test. You will not be allowed to eat (you will fast) for at least 8 hours before a blood sample is taken. An A1C blood test (hemoglobin A1C). This test provides information about blood glucose levels over the previous 2?3 months. An oral glucose tolerance test (OGTT). This test measures your blood glucose at two points in time: ?After fasting. This is your baseline level. ?Two hours after you drink a beverage that contains glucose. You may be diagnosed with prediabetes if: Your FBG is 100?125 mg/dL (5.6 6.9 mmol/L). Your A1C level is 5.7?6.4% (39 46 mmol/mol). Your OGTT result is 140?199 mg/dL (7.8 11 mmol/L). These blood tests may be repeated to confirm your diagnosis. How is this treated? Treatment may include dietary and lifestyle changes to help lower your blood glucose and prevent type 2 diabetes from developing. In some cases, medicine may be prescribed to help lower the risk of type 2 diabetes. Follow these instructions at home: Nutrition Follow a healthy meal plan. This includes eating lean proteins, whole grains, legumes, fresh fruits and vegetables, low-fat dairy products, and healthy fats. Follow instructions from your health care provider about eating or drinking restrictions. Meet with a dietitian to create a healthy eating plan that is right for you. Lifestyle Do moderate-intensity exercise for at least 30 minutes a day on 5 or more days each week, or as told by your health care provider. A mix of activities may be best, such as: ?Brisk walking, swimming, biking, and weight lifting. Lose weight as told by your health care provider. Losing 5 7% of your body weight can reverse insulin resistance. Do not drink alcohol if: ?Your health care provider tells you not to drink. ?You are , may be , or are planning to become . If you drink alcohol: ?Limit how much you use to: ?0 1 drink a day for women. ?0 2 drinks a day for men. ?Be aware of how much alcohol is in your drink. In the [place] one drink equals one 12 oz bottle of beer (355 mL), one 5 oz glass of wine (148 mL), or one 1 oz glass of hard liquor (44 mL). General instructions Take [id number] and prescription medicines only as told by your health care provider. You may be prescribed medicines that help lower the risk of type 2 diabetes. Do not use any products that contain nicotine or tobacco, such as cigarettes, e-cigarettes, and chewing tobacco. If you need help quitting, ask your health care provider. Keep all follow-up visits. This is important. Where to find more information [place] [employer] Association: www.diabetes.org Academy of Nutrition and Dietetics: www.eatright.org [place] Heart Association: www.heart.org Contact a health care provider if: You have any of these symptoms: ?Increased hunger. ?Increased urination. ?Increased thirst. ?Fatigue. ?Vision changes, such as blurry vision. Get help right away if you: Have shortness of breath. Feel confused. Vomit or feel like you may vomit. Summary Prediabetes is when your blood sugar (blood glucose)level is higher than normal but not high enough for you to be diagnosed with type 2 diabetes. Having prediabetes puts you at risk for developing type 2 diabetes (type 2 diabetes mellitus). Make lifestyle changes such as eating a healthy diet and exercising regularly to help prevent diabetes. Lose weight as told by your health care provider. This information is not intended to replace advice given to you by your health care provider. Make sure you discuss any questions you have with your health care provider. Document Revised: 02/09/2021 Document Reviewed: 02/09/2021 [employer] Patient Education 2022 [employer] 01/29/2024 09:22:38 Exercising to Lose Weight Exercising to Lose Weight Getting regular exercise is important for everyone. It is especially important if you are overweight. Being overweight increases your risk of heart disease, stroke, diabetes, high blood pressure, and several types of cancer. Exercising, and reducing the calories you consume, can help you lose weight and improve fitness and health. Exercise can be moderate or vigorous intensity. To lose weight, most people need to do a certain amount of moderate or vigorous-intensity exercise each week. How can exercise affect me? You lose weight when you exercise enough to burn more calories than you eat. Exercise also reduces body fat and builds muscle. The more muscle you have, the more calories you burn. Exercise also: Improves mood. Reduces stress and tension. Improves your overall fitness, flexibility, and endurance. Increases bone strength. Moderate-intensity exercise Moderate-intensity exercise is any activity that gets you moving enough to burn at least three times more energy (calories) than if you were sitting. Examples of moderate exercise include: Walking a mile in 15 minutes. Doing light yard work. Biking at an easy pace. Most people should get at least 150 minutes of moderate-intensity exercise a week to maintain their body weight. Vigorous-intensity exercise Vigorous-intensity exercise is any activity that gets you moving enough to burn at least six times more calories than if you were sitting. When you exercise at this intensity, you should be working hard enough that you are not able to carry on a conversation. Examples of vigorous exercise include: Running. Playing a team sport, such as football, basketball, and soccer. Jumping rope. Most people should get at least 75 minutes a week of vigorous exercise to maintain their body weight. What actions can I take to lose weight? The amount of exercise you need to lose weight depends on: Your age. The type of exercise. Any health conditions you have. Your overall physical ability. Talk to your health care provider about how much exercise you need and what types of activities are safe for you. Nutrition Make changes to your diet as told by your health care provider or diet and nutrition services associate (dietitian). This may include: ?Eating fewer calories. ?Eating more protein. ?Eating less unhealthy fats. ?Eating a diet that includes fresh fruits and vegetables, whole grains, low-fat dairy products, and lean protein. ?Avoiding foods with added fat, salt, and sugar. Drink plenty of water while you exercise to prevent dehydration or heat stroke. Activity Choose an activity that you enjoy and set realistic goals. Your health care provider can help you make an exercise plan that works for you. Exercise at a moderate or vigorous intensity most days of the week. ?The intensity of exercise may vary from person to person. You can tell how intense a workout is for you by paying attention to your breathing and heartbeat. Most people will notice their breathing and heartbeat get faster with more intense exercise. Do resistance training twice each week, such as: ?Push-ups. ?Sit-ups. ?Lifting weights. ?Using resistance bands. Getting short amounts of exercise can be just as helpful as long, structured periods of exercise. If you have trouble finding time to exercise, try doing these things as part of your daily routine: ?Get up, stretch, and walk around every 30 minutes throughout the day. ?Go for a walk during your lunch break. ?Park your car farther away from your destination. ?If you take public transportation, get off one stop early and walk the rest of the way. ?Make phone calls while standing up and walking around. ?Take the stairs instead of elevators or escalators. Wear comfortable clothes and shoes with good support. Do not exercise so much that you hurt yourself, feel dizzy, or get very short of breath. Where to find more information [place] Department of Health and Human Services: www.hhs.gov Centers for Disease Control and Prevention: www.cdc.gov Contact a health care provider: Before starting a new exercise program. If you have questions or concerns about your weight. If you have a medical problem that keeps you from exercising. Get help right away if: You have any of the following while exercising: ?Injury. ?Dizziness. ?Difficulty breathing or shortness of breath that does not go away when you stop exercising. ?Chest pain. ?Rapid heartbeat. These symptoms may represent a serious problem that is an emergency. Do not wait to see if the symptoms will go away. Get medical help right away. Call your local emergency services (911 in the [place] Do not drive yourself to the hospital. Summary Getting regular exercise is especially important if you are overweight. Being overweight increases your risk of heart disease, stroke, diabetes, high blood pressure, and several types of cancer. Losing weight happens when you burn more calories than you eat. Reducing the amount of calories you eat, and getting regular moderate or vigorous exercise each week, helps you lose weight. This information is not intended to replace advice given to you by your health care provider. Make sure you discuss any questions you have with your health care provider. Document Revised: 01/07/2022 Document Reviewed: 01/07/2022 [employer] Patient Education 2022 [employer]. 01/29/2024 09:22:35 Cooking With Less Salt Cooking With Less Salt Cooking with less salt is one way to reduce the amount of sodium you get from food. Sodium is one of the elements that make up salt. It is found naturally in foods and is also added to certain foods. Depending on your condition and overall health, your health care provider or dietitian may recommend that you reduce your sodium intake. Most people should have less than 2,300 milligrams (mg) of sodium each day. If you have high blood pressure (hypertension), you may need to limit your sodium to 1,500 mg each day. Follow the tips below to help reduce your sodium intake. What are tips for eating less sodium? Reading food labels Check the food label before buying or using packaged ingredients. Always check the label for the serving size and sodium content. Look for products with no more than 140 mg of sodium in one serving. Check the % Daily Value column to see what percent of the daily recommended amount of sodium is provided in one serving of the product. Foods with 5% or less in this column are considered low in sodium. Foods with 20% or higher are considered high in sodium. Do not choose foods with salt as one of the first three ingredients on the ingredients list. If salt is one of the first three ingredients, it usually means the item is high in sodium. Shopping Buy sodium-free or low-sodium products. Look for the following words on food labels: ?Low-sodium. ?Sodium-free. ?Reduced-sodium. ?No salt added. ?Unsalted. Always check the sodium content even if foods are labeled as low-sodium or no salt added. Buy fresh foods. Cooking Use herbs, seasonings without salt, and spices as substitutes for salt. Use sodium-free baking soda when baking. Mazie, braise, or roast foods to add flavor with less salt. Avoid adding salt to pasta, rice, or hot cereals. Drain and rinse canned vegetables, beans, and meat before use. Avoid adding salt when cooking sweets and desserts. Cook with low-sodium ingredients. What foods are high in sodium? Vegetables Regular canned vegetables (not low-sodium or reduced-sodium). Sauerkraut, pickled vegetables, and relishes. Olives. Macedonian fries. Onion rings. Regular canned tomato sauce and paste. Regular tomato and vegetable juice. Frozen vegetables in sauces. Grains Instant hot cereals. Bread stuffing, pancake, and biscuit mixes. Croutons. Seasoned rice or pasta mixes. Noodle soup cups. Boxed or frozen macaroni and cheese. Regular salted crackers. Self-rising flour. Rolls. Bagels. Flour tortillas and wraps. Meats and other proteins Meat or fish that is salted, canned, smoked, cured, spiced, or pickled. This includes quintana, ham, sausages, hot dogs, corned beef, chipped beef, meat loaves, salt pork, jerky, pickled escalona, anchovies, regular canned tuna, and sardines. Salted nuts. Dairy Processed cheese and cheese spreads. Cheese curds. Blue cheese. Feta cheese. String cheese. Regular cottage cheese. Buttermilk. Canned milk. The items listed above may not be a complete list of foods high in sodium. Actual amounts of sodium may be different depending on processing. Contact a dietitian for more information. What foods are low in sodium? Fruits Fresh, frozen, or canned fruit with no sauce added. Fruit juice. Vegetables Fresh or frozen vegetables with no sauce added. No salt added canned vegetables. No salt added tomato sauce and paste. Low-sodium or reduced-sodium tomato and vegetable juice. Grains Noodles, pasta, quinoa, rice. Shredded or puffed wheat or puffed rice. Regular or quick oats (not instant). Low-sodium crackers. Low-sodium bread. Whole-grain bread and whole-grain pasta. Unsalted popcorn. Meats and other proteins Fresh or frozen whole meats, poultry (not injected with sodium), and fish with no sauce added. Unsalted nuts. Dried peas, beans, and lentils without added salt. Unsalted canned beans. Eggs. Unsalted nut butters. Low-sodium canned tuna or chicken. Dairy Milk. Soy milk. Yogurt. Low-sodium cheeses, such as Colombian, [place] Efrem, mozzarella, and ricotta. Sherbet or ice cream (keep to cup per serving). Cream cheese. Fats and oils Unsalted butter or margarine. Other foods Homemade pudding. Sodium-free baking soda and baking powder. Herbs and spices. Low-sodium seasoning mixes. Beverages Coffee and tea. Carbonated beverages. The items listed above may not be a complete list of foods low in sodium. Actual amounts of sodium may be different depending on processing. Contact a dietitian for more information. What are some salt alternatives when cooking? The following are herbs, seasonings, and spices that can be used instead of salt to flavor your food. Herbs should be fresh or dried. Do not choose packaged mixes. Next to the name of the herb, spice, or seasoning are some examples of foods you can pair it with. Herbs [place] leaves Soups, meat and vegetable dishes, and spaghetti sauce. Basil [place] dishes, soups, pasta, and fish dishes. Cilantro Meat, poultry, and vegetable dishes. [place] powder Marinades and [place] dishes. Chives Salad dressings and potato dishes. Cumin [place] dishes, couscous, and meat dishes. Dill Fish dishes, sauces, and salads. Fennel Meat and vegetable dishes, breads, and cookies. Garlic (do not use garlic salt) [place] dishes, meat dishes, salad dressings, and sauces. Marjoram Soups, potato dishes, and meat dishes. Oregano Pizza and spaghetti sauce. Parsley Salads, soups, pasta, and meat dishes. Kari [place] dishes, salad dressings, soups, and red meats. Saffron Fish dishes, pasta, and some poultry dishes. [place]o Stuffings and sauces. Tarragon Fish and poultry dishes. Thyme Stuffing, meat, and fish dishes. Seasonings Lemon juice Fish dishes, poultry dishes, vegetables, and salads. Vinegar Salad dressings, vegetables, and fish dishes. Spices Cinnamon Sweet dishes, such as cakes, cookies, and puddings. Cloves Gingerbread, puddings, and marinades for meats. Carlson Vegetable dishes, fish and poultry dishes, and stir-alba dishes. Pilar Vegetable dishes, fish dishes, and stir-alba dishes. Nutmeg Pasta, vegetables, poultry, fish dishes, and custard. Summary Cooking with less salt is one way to reduce the amount of sodium that you get from food. Buy sodium-free or low-sodium products. Check the food label before using or buying packaged ingredients. Use herbs, seasonings without salt, and spices as substitutes for salt in foods. This information is not intended to replace advice given to you by your health care provider. Make sure you discuss any questions you have with your health care provider. Document Revised: 11/02/2020 Document Reviewed: 11/02/2020 [employer] Patient Education 2022 [employer]. 01/29/2024 09:22:34 BMI for Adults BMI for Adults What is BMI? Body mass index (BMI) is a number that is calculated from a person's weight and height. BMI can help estimate how much of a person's weight is composed of fat. BMI does not measure body fat directly. Rather, it is an alternative to procedures that directly measure body fat, which can be difficult and expensive. BMI can help identify people who may be at higher risk for certain medical problems. What are BMI measurements used for? BMI is used as a screening tool to identify possible weight problems. It helps determine whether a person is obese, overweight, a healthy weight, or underweight. BMI is useful for: Identifying a weight problem that may be related to a medical condition or may increase the risk for medical problems. Promoting changes, such as changes in diet and exercise, to help reach a healthy weight. BMI screening can be repeated to see if these changes are working. How is BMI calculated? BMI involves measuring your weight in relation to your height. Both height and weight are measured, and the BMI is calculated from those numbers. This can be done either in [place]e ([place] or metric measurements. Note that charts and online BMI calculators are available to help you find your BMI quickly and easily without having to do these calculations yourself. To calculate your BMI in [place]e ([place] measurements: 1.Measure your weight in pounds (lb). 2.Multiply the number of pounds by 703. For example, for a person who weighs 180 lb, multiply that number by 703, which equals 126,540. 3.Measure your height in inches. Then multiply that number by itself to get a measurement called inches squared. For example, for a person who is 70 inches tall, the inches squared measurement is 70 inches x 70 inches, which equals 4,900 inches squared. 4.Divide the total from step 2 (number of lb x 703) by the total from step 3 (inches squared): 126,540 4,900 = 25.8. This is your BMI. To calculate your BMI in metric measurements: 1.Measure your weight in kilograms (kg). 2.Measure your height in meters (m). Then multiply that number by itself to get a measurement called meters squared. For example, for a person who is 1.75 m tall, the meters squared measurement is 1.75 m x 1.75 m, which is equal to 3.1 meters squared. 3.Divide the number of kilograms (your weight) by the meters squared number. In this example: 70 3.1 = 22.6. This is your BMI. What do the results mean? BMI charts are used to identify whether you are underweight, normal weight, overweight, or obese. The following guidelines will be used: Underweight: BMI less than 18.5. Normal weight: BMI between 18.5 and 24.9. Overweight: BMI between 25 and 29.9. Obese: BMI of 30 or above. Keep these notes in mind: Weight includes both fat and muscle, so someone with a muscular build, such as an athlete, may have a BMI that is higher than 24.9. In cases like these, BMI is not an accurate measure of body fat. To determine if excess body fat is the cause of a BMI of 25 or higher, further assessments may need to be done by a health care provider. BMI is usually interpreted in the same way for men and women. Where to find more information For more information about BMI, including tools to quickly calculate your BMI, go to these websites: Centers for Disease Control and Prevention: www.cdc.gov [place] Heart Association: www.heart.org National Heart, Lung, and Blood [place]: www.nhlbi.nih.gov Summary Body mass index (BMI) is a number that is calculated from a person's weight and height. BMI may help estimate how much of a person's weight is composed of fat. BMI can help identify those who may be at higher risk for certain medical problems. BMI can be measured using Nepalese measurements or metric measurements. BMI charts are used to identify whether you are underweight, normal weight, overweight, or obese. This information is not intended to replace advice given to you by your health care provider. Make sure you discuss any questions you have with your health care provider. Document Revised: 08/03/2020 Document Reviewed: 06/10/2020 [employer] Patient Education 2022 [employer]. [facility] 12-27-2023 History of Present illness Narrative Associated Order(s): L Inj/Asp: bilateral knee Post-Procedure Diagnose(s): Primary osteoarthritis of knees, bilateral L Inj/Asp: bilateral knee on 12/27/2023 9:02 AM Indications: pain Details: 25 G needle Medications (Right): 12 mg betamethasone acetate-betamethasone sodium phosphate 6 (3-3) MG/ML Medications (Left): 12 mg betamethasone acetate-betamethasone sodium phosphate 6 (3-3) MG/ML Consent was given by the patient. GENERAL HISTORY AND PHYSICAL: NAME: Jose Dai : 1950 HISTORY OF PRESENT ILLNESS: Jose Dai is an 73 y.o. female is here for orthopedic evaluation bilateral knee pain and requesting cortisone injections today. We did talked about authorization last time and getting her in to see Dr. Spenser Vivar and shortly after she had her last injection she developed some pain and was then seen by Dr. Cooper Vivar treated for Achilles tendinitis placed in a boot and wanted to hold off on trying the gel injections and cancel her appointment with Dr. Pablo Vivar PAST MEDICAL HISTORY: Past Medical History: Diagnosis Date Achilles tendon contracture right At risk for falls Disorder of right Achilles tendon GERD (gastroesophageal reflux disease) Hallux rigidus, right foot Hypertension (CMS/HCC) Obesity (BMI 30-39.9) OM (onychomycosis) PAST SURGICAL HISTORY: Past Surgical History: Procedure Laterality Date CHOLECYSTECTOMY OTHER SURGICAL HISTORY child x2 SOCIAL HISTORY: Social History Occupational History Not on file Tobacco Use Smoking status: Never Passive exposure: Never Smokeless tobacco: Never Vaping Use Vaping Use: Never used Substance and Sexual Activity Alcohol use: Never Drug use: Never Sexual activity: Defer Partners: Decline to Answer ALLERGIES: Allergies Allergen Reactions Alendronate Hives and Rash Other Reaction(s): Redness of Skin MEDICATIONS: Current Outpatient Medications Medication Instructions atorvastatin (LIPITOR) 10 mg, Oral, Daily Calcium Carb-Cholecalciferol (CALCIUM + VITAMIN D3 PO) Calcium + Vitamin D3 Calcium Carb-Cholecalciferol (Calcium + Vitamin D3) 500-10 MG-MCG chewable tablet Calcium + Vitamin D3 famotidine (PEPCID) 40 mg, Oral Glucosamine 500 MG capsule Glucosamine Glucosamine HCl (GLUCOSAMINE PO) Refills(s) 0 losartan (Cozaar) 25 MG tablet Every 24 hours Multiple Vitamin (MULTIVITAMIN ADULT PO) Multivitamin omega-3 (FISH OIL) 300 MG capsule Fish Oil omeprazole (PRILOSEC) 40 mg, Oral Pediatric Multivitamins-Fl (MultiVitamin + Fluoride) 0.25 MG chewable tablet Multivitamin tobramycin-dexAMETHasone (Tobradex) ophthalmic suspension INSTILL 1 DROP INTO RIGHT EYE EVERY 3 HOURS FOR 1 DAYS THEN 1 DROP 4 TIMES A DAY REVIEW OF SYSTEMS: Review of Systems General: Denies appetite or significant weight change. Denies fever, chills or night sweats. Denies lightheadedness. ENT: Denies dry mouth, sore throat or swollen glands. Denies difficulty swallowing. Denies ear pain. Respiratory: Denies chest pain, SOB, cough or wheezing. Denies asthma or pneumonia symptoms. Cardiovascular: Denies CP or palpitations. No syncope or dyspnea on exertion. Gastrointestinal: Denies nausea or vomiting. Denies heartburn or abdominal pain. Denies diarrhea. Genitourinary: Denies frequent or painful urination. Musculoskeletal: See HPI for comments. Integumentary: Denies rash, lesion or skin infection. Neurologic: Denies dizziness, headache or seizure history. Vitals: Body mass index is 42.77 kg/m . PHYSICAL EXAM: Physical Exam Despite her severe osteoarthritis she still maintains reasonable motion with 3 degrees shy of full extension of both knees and flexion of 105 degrees. No excessive warmth or fever of the joint is noted on palpation she has patellofemoral crepitus right greater than left the prepatellar swelling redness or rash noted mediolateral collateral ligaments are stable Orders Placed This Encounter Procedures L Inj/Asp: bilateral knee This order was created via procedure documentation XR knee 3 views right Order Specific Question: Reason for exam: Answer: pain XR knee 3 views left Order Specific Question: Reason for exam: Answer: pain XR knee 1 or 2 views right Bilateral standing PA, bilateral sunrise, and lateral of the affected knee were imaged today in the office. Patient has bilateral medial compartments [id number] as well as patellofemoral disease no evidence of acute fracture or bony tumor seen. XR knee 1 or 2 views left Bilateral standing PA, bilateral sunrise, and lateral of the affected knee were imaged today in the office. Patient has bilateral medial compartments [id number] as well as patellofemoral disease no evidence of acute fracture or bony tumor seen. ASSESSMENT: Primary osteoarthritis of knees, bilateral PLAN: Would expect 48 hours up to 1 week for improvement after getting cortisone injections in both knees today. May repeat injections as soon as 4 weeks but can only receive it 2 more times in each knee for the next 12 months. May consider injections with Dr. Vivar of hyaluronic acid as a 2nd line of treatment options prior to considering total knee arthroplasty. Cold pack to both knees for 20 minutes several times a day may be helpful. May consider using a cane for stability when ambulating distances. Call for any concerns. Tylenol for discomfort. DONAL Peck documented in this encounter [facility] 12-27-2023 Instructions DONAL Peck - 12/27/2023 8:30 AM EST Would expect 48 hours up to 1 week for improvement after getting cortisone injections in both knees today. May repeat injections as soon as 4 weeks but can only receive it 2 more times in each knee for the next 12 months. May consider injections with Dr. Vivar of hyaluronic acid as a 2nd line of treatment options prior to considering total knee arthroplasty. Cold pack to both knees for 20 minutes several times a day may be helpful. May consider using a cane for stability when ambulating distances. Call for any concerns. Tylenol for discomfort. documented in this encounter [facility] 11-23-2023 Hospital Discharge instructions Patient Education 11/23/2023 14:46:55 Heartburn Heartburn Heartburn is a type of pain or discomfort that can happen in the throat or chest. It is often described as a burning pain. It may also cause a bad, acid-like taste in the mouth. Heartburn may feel worse when you lie down or bend over, and it is often worse at night. Heartburn may be caused by stomach contents that move back up into the esophagus (reflux). Follow these instructions at home: Eating and drinking Avoid certain foods and drinks as told by your health care provider. This may include: ?Coffee and tea, with or without caffeine. ?Drinks that contain alcohol. ?Energy drinks and sports drinks. ?Carbonated drinks or sodas. ?Chocolate and cocoa. ?Peppermint and mint flavorings. ?Garlic and onions. ?Horseradish. ?Spicy and acidic foods, including peppers, chili powder, carlson powder, vinegar, hot sauces, and barbecue sauce. ?[place] fruit juices and citrus fruits, such as oranges, crystal, and limes. ?Tomato-based foods, such as red sauce, chili, salsa, and pizza with red sauce. ?Fried and fatty foods, such as donuts, indonesian fries, potato chips, and high-fat dressings. ?High-fat meats, such as hot dogs and fatty cuts of red and white meats, such as rib eye steak, sausage, ham, and quintana. ?High-fat dairy items, such as whole milk, butter, and cream cheese. Eat small, frequent meals instead of large meals. Avoid drinking large amounts of liquid with your meals. Avoid eating meals during the 2 3 hours before bedtime. Avoid lying down right after you eat. Do not exercise right after you eat. Lifestyle If you are overweight, reduce your weight to an amount that is healthy for you. Ask your health care provider for guidance about a safe weight loss goal. Do not use any products that contain nicotine or tobacco. These products include cigarettes, chewing tobacco, and vaping devices, such as e-cigarettes. These can make symptoms worse. If you need help quitting, ask your health care provider. Wear loose-fitting clothing. Do not wear anything tight around your waist that causes pressure on your abdomen. Raise (elevate) the head of your bed about 6 inches (15 cm) when you sleep. You can use a wedge to do this. Try to reduce your stress, such as with yoga or meditation. If you need help reducing stress, ask your health care provider. Medicines Take rngs-iob-[id number] and prescription medicines only as told by your health care provider. Do not take aspirin or NSAIDs, such as ibuprofen, unless your health care provider told you to do so. Stop medicines only as told by your health care provider. If you stop taking some medicines too quickly, your symptoms may get worse. General instructions Pay attention to any changes in your symptoms. Keep all follow-up visits. This is important. Contact a health care provider if: You have new symptoms. You have unexplained weight loss. You have difficulty swallowing, or it hurts to swallow. You have wheezing or a persistent cough. Your symptoms do not improve with treatment. You have frequent heartburn for more than 2 weeks. Get help right away if: You suddenly have pain in your arms, neck, jaw, teeth, or back. You suddenly feel sweaty, dizzy, or light-headed. You have chest pain or shortness of breath. You vomit and your vomit looks like blood or coffee grounds. Your stool is bloody or black. These symptoms may represent a serious problem that is an emergency. Do not wait to see if the symptoms will go away. Get medical help right away. Call your local emergency services (911 in the [place] Do not drive yourself to the hospital. Summary Heartburn is a type of pain or discomfort that can happen in the throat or chest. It is often described as a burning pain. It may also cause a bad, acid-like taste in the mouth. Avoid certain foods and drinks as told by your health care provider. Take [id number] and prescription medicines only as told by your health care provider. Do not take aspirin or NSAIDs, such as ibuprofen, unless your health care provider told you to do so. Contact a health care provider if your symptoms do not improve or they get worse. This information is not intended to replace advice given to you by your health care provider. Make sure you discuss any questions you have with your health care provider. Document Revised: 05/17/2021 Document Reviewed: 05/17/2021 [employer] Patient Education 2022 [employer]. 11/23/2023 14:46:54 BMI for Adults BMI for Adults What is BMI? Body mass index (BMI) is a number that is calculated from a person's weight and height. BMI can help estimate how much of a person's weight is composed of fat. BMI does not measure body fat directly. Rather, it is an alternative to procedures that directly measure body fat, which can be difficult and expensive. BMI can help identify people who may be at higher risk for certain medical problems. What are BMI measurements used for? BMI is used as a screening tool to identify possible weight problems. It helps determine whether a person is obese, overweight, a healthy weight, or underweight. BMI is useful for: Identifying a weight problem that may be related to a medical condition or may increase the risk for medical problems. Promoting changes, such as changes in diet and exercise, to help reach a healthy weight. BMI screening can be repeated to see if these changes are working. How is BMI calculated? BMI involves measuring your weight in relation to your height. Both height and weight are measured, and the BMI is calculated from those numbers. This can be done either in [place]e ([place] or metric measurements. Note that charts and online BMI calculators are available to help you find your BMI quickly and easily without having to do these calculations yourself. To calculate your BMI in [place]e ([place] measurements: 1.Measure your weight in pounds (lb). 2.Multiply the number of pounds by 703. For example, for a person who weighs 180 lb, multiply that number by 703, which equals 126,540. 3.Measure your height in inches. Then multiply that number by itself to get a measurement called inches squared. For example, for a person who is 70 inches tall, the inches squared measurement is 70 inches x 70 inches, which equals 4,900 inches squared. 4.Divide the total from step 2 (number of lb x 703) by the total from step 3 (inches squared): 126,540 4,900 = 25.8. This is your BMI. To calculate your BMI in metric measurements: 1.Measure your weight in kilograms (kg). 2.Measure your height in meters (m). Then multiply that number by itself to get a measurement called meters squared. For example, for a person who is 1.75 m tall, the meters squared measurement is 1.75 m x 1.75 m, which is equal to 3.1 meters squared. 3.Divide the number of kilograms (your weight) by the meters squared number. In this example: 70 3.1 = 22.6. This is your BMI. What do the results mean? BMI charts are used to identify whether you are underweight, normal weight, overweight, or obese. The following guidelines will be used: Underweight: BMI less than 18.5. Normal weight: BMI between 18.5 and 24.9. Overweight: BMI between 25 and 29.9. Obese: BMI of 30 or above. Keep these notes in mind: Weight includes both fat and muscle, so someone with a muscular build, such as an athlete, may have a BMI that is higher than 24.9. In cases like these, BMI is not an accurate measure of body fat. To determine if excess body fat is the cause of a BMI of 25 or higher, further assessments may need to be done by a health care provider. BMI is usually interpreted in the same way for men and women. Where to find more information For more information about BMI, including tools to quickly calculate your BMI, go to these websites: Centers for Disease Control and Prevention: www.cdc.gov [place] [employer] Association: www.heart.org National Heart, Lung, and Blood [place]: www.nhlbi.nih.gov Summary Body mass index (BMI) is a number that is calculated from a person's weight and height. BMI may help estimate how much of a person's weight is composed of fat. BMI can help identify those who may be at higher risk for certain medical problems. BMI can be measured using Nepalese measurements or metric measurements. BMI charts are used to identify whether you are underweight, normal weight, overweight, or obese. This information is not intended to replace advice given to you by your health care provider. Make sure you discuss any questions you have with your health care provider. Document Revised: 08/03/2020 Document Reviewed: 06/10/2020 [employer] Patient Education 2022 [employer]. Follow Up Care 10/23/2023 11:17:39 With:Ellen Carlos Address: [facility] [address], [place] [address]- When:Within 6 Month(s) Comments:[facility] 10-22-2023 Hospital Discharge instructions Patient Education 10/22/2023 17:21:05 Gas and Gas Pains, Pediatric Gas and Gas Pains, Pediatric It is normal for children to have gas and gas pains from time to time. Gas can be caused by many things, including: Foods that have a lot of fiber. These include fruits, whole grains, beans, and vegetables, including peas. Swallowed air. Children often swallow air when they are nervous, eat too fast, chew gum, or drink through a straw. Antibiotic medicines. Substances added to certain foods to make the food look or taste better (food additives). Constipation. Diarrhea. Sometimes gas and gas pains can be a sign that your child has a medical problem, such as: Inability to digest a sugar that is found in milk and other dairy products (lactose intolerance). Inability to digest a protein that is found in wheat and some other grains (gluten intolerance). Trouble digesting foods that are eaten by the mother. Follow these instructions at home: Tips for caring for a baby When bottle feeding: ?Make sure that there is no air in the bottle nipple. ?Try burping your baby after every ounce (30 mL) that he or she drinks. ?Make sure that the bottle nipple is not clogged and is large enough. Your baby should not be working too hard to suck. If you are : ?Let your baby finish on one breast before moving the baby to the other breast. ?Burp your baby before switching breasts. If you are and your baby's gas becomes excessive, or your baby has gas along with other symptoms, such as diarrhea or weight loss, try the following: ?Stop eating all dairy products for a week, or as long as your health care provider suggests. This can help determine whether dairy is causing your baby to have gas. ?Try avoiding foods that typically cause gas after you eat them. These include beans, cabbage, brussels sprouts, broccoli, and asparagus. Tips for caring for an older child Encourage your child to eat slowly and to avoid swallowing a lot of air when eating. Have your child avoid chewing gum. Talk to your child's health care provider if your child sniffs frequently. Your child may have nasal allergies. Try removing one type of food or drink from your child's diet each week to see if your child's gas improves. Foods or drinks that can cause gas or gas pains include: ?Juices that have a lot of fructose in them. This includes apple, pear, grape, and prune juice. ?Foods with artificial sweeteners, such as most sugar-free drinks, candy, and gum. ?Carbonated drinks. ?Milk and other dairy products. ?Foods with gluten, such as wheat bread. Do not limit how much fiber your child eats unless your child's health care provider tells you to do this. Although fiber can cause gas, it is an important part of your child's diet. Talk with your child's health care provider about supplements that relieve gas caused by high-fiber foods. Give your child gas-relief supplements only as told by your child's health care provider. General instructions Give your child geys-lcy-apjrczx and prescription medicines only as told by your child's health care provider. Do not give your child aspirin because of the association with Manjinder's syndrome. Keep all follow-up visits. This is important. Contact a health care provider if: Your child's gas or gas pains get worse. Your child is on formula and repeatedly has gas that causes discomfort. You stop eating dairy products or foods with gluten for one week and your breastfed child has less gas. This can be a sign of lactose or gluten intolerance. You remove dairy products or foods with gluten from your child's diet for one week and he or she has less gas. This can be a sign of lactose or gluten intolerance. Your child loses weight. Your child has diarrhea or loose stools (feces) for more than one week. Get help right away if: Your child who is younger than 3 months has a temperature of 100.4 F (38 C) or higher. You child has severe pain in the abdomen. Summary It is normal for children to have gas and gas pains from time to time. Sometimes gas and gas pains can be a sign that your child has a medical problem. Contact a health care provider if your child's gas pains get worse or do not go away, or if your child loses weight. This information is not intended to replace advice given to you by your health care provider. Make sure you discuss any questions you have with your health care provider. Document Revised: 12/20/2021 Document Reviewed: 12/20/2021 [employer] Patient Education 2022 [employer]. 10/22/2023 17:21:04 Abdominal Bloating Abdominal Bloating When you have abdominal bloating, your abdomen may feel full, tight, or painful. It may also look bigger than normal or swollen (distended). Common causes of abdominal bloating include: Swallowing air. Constipation. Problems digesting food. Eating too much. Irritable bowel syndrome. This is a condition that affects the large intestine. Lactose intolerance. This is an inability to digest lactose, a natural sugar in dairy products. Celiac disease. This is a condition that affects the ability to digest gluten, a protein found in some grains. Gastroparesis. This is a condition that slows down the movement of food in the stomach and small intestine. It is more common in people with diabetes mellitus. Gastroesophageal reflux disease (GERD). This is a condition that makes stomach acid flow back into the esophagus. Urinary retention. This means that the body is holding onto urine, and the bladder cannot be emptied all the way. Follow these instructions at home: Eating and drinking Avoid eating too much. Try not to swallow air while talking or eating. Avoid eating while lying down. Avoid these foods and drinks: ?Foods that cause gas, such as broccoli, cabbage, cauliflower, and baked beans. ?Carbonated drinks. ?Hard candy. ?Chewing gum. Medicines Take ddme-cgm-pigjsyr and prescription medicines only as told by your health care provider. Take probiotic medicines. These medicines contain live bacteria or yeasts that can help digestion. Take coated peppermint oil capsules. General instructions Try to exercise regularly. Exercise may help to relieve bloating that is caused by gas and relieve constipation. Keep all follow-up visits. This is important. Contact a health care provider if: You have nausea and vomiting. You have diarrhea. You have abdominal pain. You have unusual weight loss or weight gain. You have severe pain, and medicines do not help. Get help right away if: You have chest pain. You have trouble breathing. You have shortness of breath. You have trouble urinating. You have darker urine than normal. You have blood in your stools or have dark, tarry stools. These symptoms may represent a serious problem that is an emergency. Do not wait to see if the symptoms will go away. Get medical help right away. Call your local emergency services (911 in the [place] Do not drive yourself to the hospital. Summary Abdominal bloating means that the abdomen is swollen. Common causes of abdominal bloating are swallowing air, constipation, and problems digesting food. Avoid eating too much and avoid swallowing air. Avoid foods that cause gas, carbonated drinks, hard candy, and chewing gum. This information is not intended to replace advice given to you by your health care provider. Make sure you discuss any questions you have with your health care provider. Document Revised: 06/13/2021 Document Reviewed: 06/13/2021 [employer] Patient Education 2022 [employer]. Follow Up Care 10/21/2023 09:45:24 With:Daquan GRANADOS, Ellen Bonilla Address: [address] [place] [address], [facility] [place] [phone]- When:Within 1 Month(s) Comments:f/u flatulence and GERD [facility] 09-20-2023 Evaluation note Encounter Date Diagnosis Assessment Notes Aug, Obstructive sleep apnea (adult) (pediatric) (ICD-10 - G47.33) Fortunately, the patient is using and benefiting from treatment. We do not have a download to review as patient's machine has stopped transmitting data, however pt reports good control of her AHI with current pressures so we will not make any changes at this time. We will submit a request for a new machine today as her machine's motor has exceeded life expectancy, an order was placed to have this completed, as well as a prescription for new supplies throughout the year. She was encouraged to continue to use her machine nightly, throughout the entire night and for naps as this does provide clinical benefit. We will anticipate a 31-90 day visit after pt receives new machine. Aug, BMI 40.0-44.9, adult (ICD-10 - Z68.41) Pt's weight is mostly unchanged since last OV. Weight reduction is broadly beneficial and can have significant positive effects on sleep apnea severity Aug, HTN (hypertension) (ICD-10 - I10) Positive effects of controlled SATURNINO and hypertension were reviewed. Control of sleep apnea will frequently have a positive effect on blood pressure control, and may additionally reduce blood pressure lability. She continues to follow with her PCP and states that it is well controlled. Aug, Other Call if any questions or problems. For Sleep Apnea: Patient is advised to work on healthy diet choices and appropriate servings, weight control, regular exercise as directed, and reduce fat intake. Use machine regularly, and keep up with mask changes as needed. Call if problems with mask toleration, increased sleepiness, or poor response to treatment. Take medication as prescribed, keep follow up appointments, get any testing that's been ordered in a timely fashion. Do not smoke. [employer] Other 09-21-2022 Evaluation note* Encounter Date Diagnosis Assessment Notes Treatment Notes Treatment Clinical Notes Jul, Obstructive sleep apnea (adult) (pediatric) (ICD-10 - G47.33) Fortunately, the patient is using and benefiting from treatment. Download was reviewed with patient, Current pressure is controlling apnea well, And we will make no changes at this time. A prescription was sent to the [facility] for new supplies throughout the year. She was encouraged to continue to use her machine nightly, throughout the entire night and for naps as this does provide clinical benefit. She will follow-up in the sleep clinic in 1 year or sooner if problems. Jul, BMI 40.0-44.9, adult (ICD-10 - Z68.41) We discussed the benefits of weight control as a long-term resolution to SATURNINO. Weight loss strategies were reviewed in detail, including decreased overall caloric intake quantity, better food choices and portion control. Emphasis was placed budgeting calories so there can be room for appropriate quantities of favorite foods, and on making gradual progress rather than seeking short term loss. Weight reduction can be broadly beneficial and have substantial positive effects on sleep apnea severity. Jul, HTN (hypertension) (ICD-10 - I10) Positive effects of controlled SATURNINO and hypertension were reviewed. Control of sleep apnea will frequently have a positive effect on blood pressure control, and may additionally reduce blood pressure lability. Jul, Other Call if any questions or problems. For Sleep Apnea: Patient is advised to work on healthy diet choices and appropriate servings, weight control, regular exercise as directed, and reduce fat intake. Use machine regularly, and keep up with mask changes as needed. Call if problems with mask toleration, increased sleepiness, or poor response to treatment. Take medication as prescribed, keep follow up appointments, get any testing that's been ordered in a timely fashion. Do not smoke. [employer] Other 06-27-2022 Evaluation + Plan noteExtracted from: Title:Vascular Author:Haley Wade Date:05/21 Referral to Lymphedema [facility] faxed to Marissa @ [facility] ([phone]) Verified with Marissa referral was received & they will contact patient. Future Scheduled Tests Laboratory* HgbA1c 10/02/21 * Vitamin D 25 Hydroxy 10/02/21 * Comprehensive Metabolic Panel 10/02/21 * Lipid Panel 10/02/21 Radiology* US PVR Lower EXT Complete Bilat 05/21/22 * BD Bone Density DEXA 05/22/21 * US LE Venous Duplex Bilateral 05/21/22 * MA Mamm Screen w/CAD if perf and 3D Paddy 04/10/22 * MA Mamm Screen w/CAD if perf and 3D Paddy 04/11/22 [facility]05-17-2022 Hospital Discharge instructions Patient Education 04/10/2022 13:05:19 BMI for Adults BMI for Adults Body mass index (BMI) is a number that is calculated from a person's weight and height. BMI may help to estimate how much of a person's weight is composed of fat. BMI can help identify those who may be at higher risk for certain medical problems. How is BMI used with adults? BMI is used as a screening tool to identify possible weight problems. It is used to check whether aperson is obese, overweight, healthy weight, or underweight. How is BMI calculated? BMI measures your weight and compares it to your height. This can be done either in [place]e ([place] or metric measurements. Note that charts are available to help you find your BMI quickly and easily without having to do these calculations yourself. To calculate your BMI in [place] measurements, your health care provider will: 1.Measure your weight in pounds (lb). 2.Multiply the number of pounds by 703. For example, for a person who weighs 180 lb, multiply that number by 703, which equals 126,540. 3.Measure your height in inches (in). Then multiply that number by itself to get a measurement called inches squared. For example, for a person who is 70 in tall, the inches squared measurement is 70 in x 70 in, which equals 4900 inches squared. 4.Divide the total from Step 2 (number of lb x 703) by the total from Step 3 (inches squared): 126,540 4900 = 25.8. This is your BMI. To calculate your BMI in metric measurements, your health care provider will: 1.Measure your weight in kilograms (kg). 2.Measure your height in meters (m). Then multiply that number by itself to get a measurement called meters squared. For example, for a person who is 1.75 m tall, the meters squared measurement is 1.75 m x 1.75 m, which is equal to 3.1 meters squared. 3.Divide the number of kilograms (your weight) by the meters squared number. In this example: 70 3.1 = 22.6. This is your BMI. How is BMI interpreted? To interpret your results, your health care provider will use BMI charts to identify whether you are underweight, normal weight, overweight, or obese. The following guidelines will be used: Underweight: BMI less than 18.5. Normal weight: BMI between 18.5 and 24.9. Overweight: BMI between 25 and 29.9. Obese: BMI of 30 and above. Please note: Weight includes both fat and muscle, so someone with a muscular build, such as an athlete, may havea BMI that is higher than 24.9. In cases like these, BMI is not an accurate measure of body fat. To determine if excess body fat is the cause of a BMI of 25 or higher, further assessments may needto be done by a health care provider. BMI is usually interpreted in the same way for men and women. Why is BMI a useful tool? BMI is useful in two ways: Identifying a weight problem that may be related to a medical condition, or that may increase the risk for medical problems. Promoting lifestyle and diet changes in order to reach a healthy weight. Summary Body mass index (BMI) is a number that is calculated from a person's weight and height. BMI may help to estimate how much of a person's weight is composed of fat. BMI can help identify those who may be at higher risk for certain medical problems. BMI can be measured using Nepalese measurements or metric measurements. To interpret your results, your health care provider will use BMI charts to identify whether you are underweight, normal weight, overweight, or obese. This information is not intended to replace advice given to you by your health care provider. Make sure you discuss any questions you have with your health care provider. Document Released: 07/23/2005 Document Revised: 10/24/2018 Document Reviewed: 09/24/2018 [employer] Patient Education 2020 [employer]. 04/10/2022 13:05:14 Dyslipidemia Dyslipidemia Dyslipidemia is an imbalance of waxy, fat-like substances (lipids) in the blood. The body needs lipids in small amounts. Dyslipidemia often involves a high level of cholesterol or triglycerides, which are types of lipids. Common forms of dyslipidemia include: High levels of LDL cholesterol. LDL is the type of cholesterol that causes fatty deposits (plaques)to build up in the blood vessels that carry blood away from your heart (arteries). Low levels of HDL cholesterol. HDL cholesterol is the type of cholesterol that protects against heart disease. High levels of HDL remove the LDL buildup from arteries. High levels of triglycerides. Triglycerides are a fatty substance in the blood that is linked to a buildup of plaques in the arteries. What are the causes? Primary dyslipidemia is caused by changes (mutations) in genes that are passed down through families (inherited). These mutations cause several types of dyslipidemia. Secondary dyslipidemia is caused by lifestyle choices and diseases that lead to dyslipidemia, such as: Eating a diet that is high in animal fat. Not getting enough exercise. Having diabetes, kidney disease, liver disease, or thyroid disease. Drinking large amounts of alcohol. Using certain medicines. What increases the risk? You are more likely to develop this condition if you are an older man or if you are a woman who hasgone through menopause. Other risk factors include: Having a family history of dyslipidemia. Taking certain medicines, including control pills, steroids, some diuretics, and beta-blockers. Smoking cigarettes. Eating a high-fat diet. Having certain medical conditions such as diabetes, polycystic ovary syndrome (PCOS), kidney disease, liver disease, or hypothyroidism. Not exercising regularly. Being overweight or obese with too much belly fat. What are the signs or symptoms? In most cases, dyslipidemia does not usually cause any symptoms. In severe cases, very high lipid levels can cause: Fatty bumps under the skin (xanthomas). White or el ring around the black center (pupil) of the eye. Very high triglyceride levels can cause inflammation of the pancreas (pancreatitis). How is this diagnosed? Your health care provider may diagnose dyslipidemia based on a routine blood test (fasting blood test). Because most people do not have symptoms of the condition, this blood testing (lipid profile) is done on adults age 20 and older and is repeated every 5 years. This test checks: Total cholesterol. This measures the total amount of cholesterol in your blood, including LDL cholesterol, HDL cholesterol, and triglycerides. A healthy number is below 200. LDL cholesterol. The target number for LDL cholesterol is different for each person, depending on individual risk factors. Ask your health care provider what your LDL cholesterol should be. HDL cholesterol. An HDL level of 60 or higher is best because it helps to protect against heart disease. A number below 40 for men or below 50 for women increases the risk for heart disease. Triglycerides. A healthy triglyceride number is below 150. If your lipid profile is abnormal, your health care provider may do other blood tests. How is this treated? Treatment depends on the type of dyslipidemia that you have and your other risk factors for heart disease and stroke. Your health care provider will have a target range for your lipid levels based onthis information. For many people, this condition may be treated by lifestyle changes, such as diet and exercise. Your health care provider may recommend that you: Get regular exercise. Make changes to your diet. Quit smoking if you smoke. If diet changes and exercise do not help you reach your goals, your health care provider may also prescribe medicine to lower lipids. The most commonly prescribed type of medicine lowers your LDL cholesterol (statin drug). If you have a high triglyceride level, your provider may prescribe another type of drug (fibrate) or an omega-3 fish oil supplement, or both. Follow these instructions at home: Eating and drinking Follow instructions from your health care provider or dietitian about eating or drinking restrictions. Eat a healthy diet as told by your health care provider. This can help you reach and maintain a healthy weight, lower your LDL cholesterol, and raise your HDL cholesterol. This may include: ?Limiting your calories, if you are overweight. ?Eating more fruits, vegetables, whole grains, fish, and lean meats. ?Limiting saturated fat, trans fat, and cholesterol. If you drink alcohol: ?Limit how much you use. ?Be aware of how much alcohol is in your drink. In the [place] one drink equals one 12 oz bottle of beer (355 mL), one 5 oz glass of wine (148 mL), or one 1 oz glass of hard liquor (44 mL). Do not drink alcohol if: ?Your health care provider tells you not to drink. ?You are , may be , or are planning to become . Activity Get regular exercise. Start an exercise and strength training program as told by your health care provider. Ask your health care provider what activities are safe for you. Your health care provider may recommend: ?30 minutes of aerobic activity 4 6 days a week. Brisk walking is an example of aerobic activity. ?Strength training 2 days a week. General instructions Do not use any products that contain nicotine or tobacco, such as cigarettes, e- cigarettes, and chewing tobacco. If you need help quitting, ask your health care provider. Take hhxv-qli-zoxcqju and prescription medicines only as told by your health care provider. This includes supplements. Keep all follow-up visits as told by your health care provider. Contact a health care provider if: You are: ?Having trouble sticking to your exercise or diet plan. ?Struggling to quit smoking or control your use of alcohol. Summary Dyslipidemia often involves a high level of cholesterol or triglycerides, which are types of lipids. Treatment depends on the type of dyslipidemia that you have and your other risk factors for heart disease and stroke. For many people, treatment starts with lifestyle changes, such as diet and exercise. Your health care provider may prescribe medicine to lower lipids. This information is not intended to replace advice given to you by your health care provider. Make sure you discuss any questions you have with your health care provider. Document Released: 11/16/2014 Document Revised: 07/06/2019 Document Reviewed: 06/12/2019 [employer] Patient Education 2020 [employer]. Follow Up Care 03/15/2022 14:47:35 With:Rupa FINK CNP Address: [address] [phone]- When:Within 1 Month(s) [facility] 11-08-2021 Evaluation + Plan note Future Scheduled Tests Laboratory* HgbA1c 10/02/21 * Vitamin D 25 Hydroxy 10/02/21 * Comprehensive Metabolic Panel 10/02/21 * Lipid Panel 10/02/21 Radiology* BD Bone Density DEXA 05/22/21 * MA Mamm Screen w/CAD if perf and 3D Paddy 04/10/22 [facility] 11-08-2021 Evaluation + Plan note Future Scheduled Tests Laboratory* HgbA1c 10/02/21 * Vitamin D 25 Hydroxy 10/02/21 * Comprehensive Metabolic Panel 10/02/21 * Lipid Panel 10/02/21 Radiology* US LE Venous Duplex Bilateral 06/06/22 * MA Mamm Screen w/CAD if perf and 3D Paddy 04/10/22 * MA Mamm Screen w/CAD if perf and 3D Paddy [facility] Appointment Date:03/27/2023 08:20:00 AM Scheduled Provider:Ellen Carlos Location:[facility] Appointment Type: Open Future Scheduled Tests Radiology* US LE Venous Duplex Bilateral 06/06/22 * MA Mamm Screen w/CAD if perf and 3D Paddy 04/10/22 * MA Mamm Screen w/CAD if perf and 3D Paddy 04/11/22 [facility] Evaluation + Plan note Future Appointments Appointment Date:04/01/2023 08:00:00 AM Scheduled Provider: Location:[facility] Appointment Type: Medicare Wellness Subsequent Appointment Date:03/30/2024 08:00:00 AM Scheduled Provider:Ellen Carlos Location:[facility] Appointment Type: Preventative Visit Future Scheduled Tests Laboratory* HgbA1c 03/27/23 Radiology* MA Mamm Screen w/CAD if performed bilat 03/27/23 * Echo Transthoracic Complete 03/27/23 * BD Bone Density DEXA 03/27/23 * US LE Venous Duplex Bilateral 06/06/22 * MA Mamm Screen w/CAD if perf and 3D Paddy 04/10/22 * MA Mamm Screen w/CAD if perf and 3D Paddy [facility] Appointment Date:01/29/2024 08:00:00 AM Scheduled Provider: [facility] Type: Medicare Wellness Subsequent Appointment Date:03/30/2024 08:00:00 AM Scheduled Provider:Ellen Carlos [facility] Appoint[facility] Type:FM Preventative Visit Future Scheduled Tests Laboratory* HgbA1c 03/27/23 Radiology* MA Mamm Screen w/CAD if performed bilat 03/27/23 * BD Bone Density DEXA 03/27/23 * US LE Venous Duplex Bilateral [facility]ments Appointment Date:11/26/2023 09:00:00 AM Scheduled Provider:Ellen Carlos Location:[facility] Appointment Type: Open Appointment Date:01/29/2024 08:00:00 AM Scheduled Provider: Location:[facility] Appointment Type: Medicare Wellness Subsequent Appointment Date:03/30/2024 08:00:00 AM Scheduled Provider:Ellen Carlos [facility] Appoint[facility] Type: Preventative Visit Future Scheduled Tests Laboratory* HgbA1c 03/27/23 Radiology* MA Mamm Screen w/CAD if performed bilat 03/27/23 * BD Bone Density DEXA 03/27/23 [facility] Primary Care Evaluation + Plan note Future Appointments Appointment Date:01/29/2024 08:00:00 AM Scheduled Provider: Location:[facility] Appointment Type: Medicare Wellness Subsequent Appointment Date:03/30/2024 08:00:00 AM Scheduled Provider:Ellen Carlos [facility] App[facility] Type: Preventative Visit Future Scheduled Tests Laboratory* HgbA1c 03/27/23 Radiology* BD Bone Density DEXA 03/27/23 [facility] Primary Care Evaluation + Plan note Future Appointments Appointment Date:03/30/2024 08:00:00 AM Scheduled Provider:Ellen Carlos [facility] Type: Preventative Visit Appointment Date:01/29/2025 09:30:00 AM Scheduled Provider: Location:[facility] Appointment Type: Medicare Wellness Subsequent Future Scheduled Tests Laboratory* HgbA1c 03/27/23 * HCV Antibody RFX to Quant PCR 01/29/24 Radiology* BD Bone Density DEXA 03/27/23 [facility] Primary Care Evaluation + Plan note Future Appointments Appointment Date:03/30/2024 08:00:00 AM Scheduled Provider:Ellen Carlos Location:[facility] Appointment Type: Preventative Visit Appointment Date:01/29/2025 09:30:00 AM Scheduled Provider: Location:[facility] Appointment Type:FM Medicare Wellness Subsequent Future Scheduled Tests Laboratory* HCV Antibody RFX to Quant PCR 01/29/24 [facility] Future App[facility]ments Appointment Date:10/19/2024 08:00:00 AM Scheduled Provider:Ellen Carlos [facility] App[facility] Type: Open Appointment Date:01/29/2025 09:30:00 AM Scheduled Provider: Location:[facility] Appointment Type: Medicare Wellness Subsequent Future Scheduled Tests Laboratory* HgbA1c 04/08/24 * HCV Antibody RFX to Quant PCR 01/29/24 * Vitamin D 25 Hydroxy 04/08/24 * Comprehensive Metabolic Panel 04/08/24 * Lipid Panel 04/08/24 [facility] Primary Care evaluation + Plan note Future Appointments Appointment Date:10/19/2024 08:00:00 AM Scheduled Provider:Ellen Carlos [facility] App[facility] Type: Open Appointment Date:01/29/2025 09:30:00 AM Scheduled Provider: Location:[facility] Appointment Type: Medicare Wellness Subsequent Future Scheduled Tests Laboratory* HgbA1c 04/08/24 * HCV Antibody RFX to Quant PCR 01/29/24 * Vitamin D 25 Hydroxy 04/08/24 * Comprehensive Metabolic Panel 04/08/24 * Lipid Panel 04/08/24 Radiology* MA Mamm Screen w/CAD if perf and 3D Paddy 04/24/24 [facility] Work Phone: Evaluation note* Diagnosis Primary osteoarthritis of knees, bilateral- Primary documented in this encounter [facility] - Reported* Type Description Date Medical History SATURNINO (obstructive sleep apnea) Medical History Hypertension Medical History Lymphedema b/l legs Hire [employer] Other Hospital course Narrative No data available for this section [facility] Discharge instructions No data available for this section [facility] No data available for this section [facility]ative[facility] Referred by: Noman ALLISON, Isela Johnson [facility] Chief Complaint and Reason for Visit Chief Complaint SATURNINO 1 YEAR Advance Directives Advance Directive Response Recorded Date/ Time Advance Directives No October 03, 2017 2:53pm Summary Purpose Family History No Family History Records FoundNo Family History Records Found No data available for this section No data available for this section No data available for this section No data available for this section No data available for this section No Family History Records FoundNo Family History Records Found No data available for this section Reason for Referral Specialty Diagnoses / Procedures Referred By Moisés ulrich Referred To Contact Orthopaedic Surgery Diagnoses Primary osteoarthritis of knees, bilateral Procedures L Inj/Asp: bilateral knee Giuliano Garcia PA [address] [place] [address] Referral ID Status Reason Start Date Expiration Date V isits Requested Visits Authorized [id number] Authorized 12/27/2023 06/24/2024 1 1 Additional Source Comments Care Team (unrecognized sect ion and content) Personnel Name: Daquan Ellen GRANADOS Address: Address: [address] [place] [address]- [place] Team Status: Inactive Member Role Status Dates Rupa Fink Primary Care Provider Active Dipti Barajas NP Attending Provider Active Team Status: Active Member Role Status Dates Rupa Fink Primary Care Provider Active Manager Post Relationship Specialty Start Date End Date Bello [place] MD [address] [place] [address] PCP - General Internal Medicine 05/07/23 Manager Post Relationship Specialty Start Date End Date Bello [place] MD [address] [place] [address] PCP - General Internal Medicine 05/07/23 Goals (unrecognized section and content) Goals may be documented in a n alternate section REASON FOR VISIT (unrecogniz ed section and content) Reason Comments Osteoarthritis INFORMATION SOURCE (unrecogn ized section and content) DATE CREATED AUTHOR 08/30/2022 [facility] DATE CREATED AUTHOR AUTHOR'S ORGANIZ ATION 09/28/2023 [facility] DATE CREATED AUTHOR AUTHOR'S ORGANIZ ATION 05/02/2024 [facility] DATE CREATED AUTHOR AUTHOR'S ORGANIZ ATION 05/05/2024 [facility] FOR RECORDS PERTAINING TO PATIENTS WHO ARE OR HAVE BEEN ENROLLED IN A CHEMICAL DEPENDENCY/SUBSTANCEABUSE PROGRAM, SOME INFORMATION MAY BE OMITTED. This clinical summary was aggregated from multiple sources. Caution should be exercised in using it in the provision of clinical care. This summary normalizes information from multiple sources, and as a consequence, information in this document may materially change the coding, format and clinical context of patient data. In addition, data may be omitted in some cases. CLINICAL DECISIONS SHOULD BE BASED ON THE PRIMARY CLINICAL RECORDS. [employer] provides no warranty or guarantee of the accuracy or completeness of information in this document.
--- NOTE | 2024-05-11 06:55 | MR_ITS ---
The [address] [address] Patient Name: JOSE DAI MRN: [id number] date: 1950 Sex: F Assigned Patient Location: MRI Current Patient Location: Accession/Order Number: [id number] Exam Date: 05/11/2024 07:05 Report Date: 05/12/2024 14:31 At the request of: SHAILA MORALES Procedure: MR ankle RT wo con EXAM: MR ankle RT wo con REASON FOR EXAM: achilles rupture right. TECHNIQUE: Multiplanar, multisequence imaging of the right ankle was performed without contrast COMPARISON: No recent relevant imaging. FINDINGS: There is significant fusiform thickening and intermediate signal of the Achilles tendon consistent with tendinosis. There is a small low-grade partial-thickness intrasubstance tearing spanning 2.5 cm in craniocaudal dimension along the posterior medial fibers. A complete rupture not identified. Small amount of fluid is present in the retrocalcaneal bursa. The plantar fascia is intact. Laterally, the peroneal tendons demonstrate normal thickness and signal without tendinosis or tear. The superficial peroneal retinaculum is intact. The lateral ligaments appear intact. Medially, the medial flexor tendons demonstrate normal thickness and signal without tendinosis or tear. The deep deltoid ligament is intact. The visualized spring and Lisfranc ligaments are intact. Anteriorly, the anterior extensor tendons demonstrate normal thickness and signal without tendinosis or tear. The bone marrow signal is without fracture or osteonecrosis. The talar dome is congruent. The subtalar joints intact. The sinus tarsi is nonedematous. The midfoot is congruent. The plantar musculature demonstrates normal bulk and signal. Remaining soft tissues are unremarkable. MR/MR ankle RT wo con IMPRESSION: 1. High-grade Achilles tendinosis with low-grade intrasubstance partial tearing of the mid tendon. No high-grade or complete tear identified. Electronically authenticated by: RAMON CRAMER Date: 05/12/2024 14:31
== END 2024-05-11 06:51 | disposition home or self-care (01) ==
LOC: MRI 06:50
DX: S86.011A Strain of right Achilles tendon, initial encounter (principal); M76.61 Achilles tendinitis, right leg
CPT/HCPCS: 73721

== ENCOUNTER 2024-07-10 08:52 | Outpatient (RCR) | payer MEDICARE, OTHER, SELFPAY | END 2024-08-22 07:09 | disposition home or self-care (01) | LOC: OT 08:52 | PROVIDERS: PCP Nurse Practitioner Family; Visit Provider Student in an Organized Health Care Education/Training Program | DX: I89.0 Lymphedema, not elsewhere classified (principal) | CPT/HCPCS: 97140; 97166; 97530; 97535 ==

== ENCOUNTER 2024-08-14 09:30 | Outpatient (OUT) | payer MEDICARE, OTHER, SELFPAY ==
--- NOTE | 2024-08-14 | ECG_ITS ---
The 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
--- NOTE | 2024-08-14 | XR_ITS ---
The [address] [address] Patient Name: JOSE DAI MRN: [id number] date: 1950 Sex: F Assigned Patient Location: [facility] Current Patient Location: [facility] Accession/Order Number: [id number] Exam Date: 08/14/2024 09:50 Report Date: 08/17/2024 08:30 At the request of: BRENDA CARBALLO Procedure: XR chest 2V EXAM: XR chest 2V HISTORY: PRE-OP EXAMINATION COMPARISON: None. TECHNIQUE: 2 views. FINDINGS: The heart and mediastinum are unremarkable. Lungs are clear. No focal infiltrates are seen. XR/XR chest 2V IMPRESSION: No acute findings. No focal infiltrate. No effusions. Electronically authenticated by: Sheryl CHAHAL Date: 08/17/2024 08:30
--- OUTSIDE RECORDS SUMMARY | 2024-08-14 09:52 | XMS_ITS | CCD ---
Author Organization [facility] Care Team Providers Care Book Jogger Name Role Phone Rupa FINK Primary Care Physician Rupa Fink Primary Care Provider NOEMI Barajas Attending Provider [phone] Karl Dipti Unavailable RUPA FINK Primary Care Unavailable RUPA FINK Admitting Unavailable RUPA FINK Attending Unavailable RUPA FINK Consulting Unavailable RUPA FINK Primary Care Unavailable RUPA FINK Admitting Unavailable RUPA FINK Attending Unavailable RUPA FINK Consulting Unavailable RUPA FINK Primary Care Unavailable DR MARII HUSSEIN Consulting Unavailable ALEKS, RUPA Admitting Unavailable RUPA FINK Attending Unavailable RUPA FINK Consulting Unavailable ALEKS, RUPA Primary Care Unavailable ISELA TINEO Admitting Unavailable ISELA TINEO Attending Unavailable Ellen Butt Primary Care Physician Dipti Baraajs Attending Unavailable Karina Barajasgy Admitting Unavailable Ellen [...] VIVAR Attending Unavailable FRANKIE VIVAR Attending Unavailable Tayler Vega Attending Unavailable Ellen Butt Attending Unavailab Ellen Bentley Attending Unavailab Ellen Bentley Attending Unavailab yaquelin Ellen neri Attending Unavailab yaquelin Ellen neri Attending Unavailab le Ellen neri Attending Unavailab yaquelin Ellen neri Referring UnavailMD Isela Pike Admitting Unavailable MD Isela Tineo Attending Unavailable Ellen Butt Admitting Unavailab Ellen Bentley Attending Unavailab Tayler Welch Attending Unavailable Allergies Allergy Classification Reported Allergen(s) Allergy Type Date of Onset Reaction(s) Facility (18 sources) Alendronate; Translations: [alendronate] Drug Allergy 10-02-2018 Weal (disorder), Cutaneous eruption (morphologic abnormality), Hives, Rash [facility] (2 sources) Alendronate; Translations: [alendronate sodium] Drug Allergy 10-02-2018 Redness of Skin [facility] Medications Current Medications Medication Drug Class(es) Dates [...] day(s), # 90 tab(s), Refills(s) 3, Pharmacy: [facility]/pharmacy #[id number], 166, cm, 03/27/23 8:21:00 EDT, Height/Length Dosing, 116.1, kg, 03/27/23 8:21:00 EDT, Weight Dosing Start Date: 03/27/23 Stop Date: 03/21/24 Status: Ordered Atorvastatin Sonny cium Active bismuth subsalicylate (4 sources) Bismuth Start: 04-13-2019 Maalox Total S tomach Relief mg, Oral, QID, [id number] 5ML (Alum & Mag Hydroxide-Simeth) 2-4 tsps [...] Daily, # 90 tab(s), Refills(s) 3, Pharmacy: [facility]/pharmacy #[id number], 162.6, cm, 04/08/24 10:22:00 EDT, Height/Length Dosing, 112.7, kg, 04/08/24 10:22:00 EDT, Weight Dosing Start Date: 04/24/24 Status: Ordered Start: 02-24-2024 take 1 tablet by leanna th once daily famotidine 40 mg Tab 40 mg = 1 tab(s), Oral, Daily, # 90 tab(s), Refills(s) 3, [id number] 162.6, cm, 01/29/24 8:59:00 EST, Height/Length Dosing, 116.1, kg, 01/29/24 8:59:00 EST, Weight Dosing Start Date: 02/24/24 Status: Ordered Start: 10-23-2023 take 1 tablet by leanna th once daily famotidine 40 mg Tab 40 mg = 1 tab(s), Oral, Daily, # 90 tab(s), Refills(s) 1, Pharmacy: [facility]/pharmacy #[id number], 166, cm, 12/09/23 9:04:00 EST, Height/Length Dosing, 116.8, kg, 12/09/23 9:04:00 EST, Weight Dosing Start Date: 12/11/23 Status: Ordered Fish Oils (17 sources) Start: 10-31-2020 take 1 capsule by mo [facility] once daily Fish Oil 1200 mg oral [...] Daily, # 90 tab(s), Refills(s) 3, Pharmacy: [facility]/pharmacy #[id number], 162.6, cm, 04/08/24 10:22:00 EDT, Height/Length Dosing, 112.7, kg, 04/08/24 10:22:00 EDT, Weight Dosing Start Date: 04/24/24 Status: Ordered Start: 10-02-2018 End: 03-21-2024 take 1 tablet by mouth once daily losartan 25 mg Tab 25 mg = 1 tab(s), Oral, Daily, # 90 tab(s), Refills(s) 3, Pharmacy: [facility]/pharmacy #[id number], 162.6, cm, 01/29/24 8:59:00 EST, Height/Length Dosing, 116.1, kg, 01/29/24 8:59:00 EST, Weight Dosing Start Date: 02/24/24 Status: Ordered Losartan Potassi um Active Multiple Vitamin (MULTIVITAMIN ADULT PO) (3 sources) Multiple Vitamin (MULTIVITAMIN ADULT PO) Multivitamin 0 Active Umadpklf-Qyk-Skzny Acid-Vit K (Multi For Her 50 Plus) 400-80 mcg Capsule (1 source) Start: 10-02-20 18 take 50-400 capsules by mouth once daily Swuxasht-Oko-Wkjhl Acid-Vit K (Multi For Her 50 Plus) 400-80 mcg Capsule Active 1 CAP PO Daily October 02, 2018 1:00am Multivitamin, Therapeutic w/ Minerals (12 sources) Start: 10-17-20 take 1 tablet by mouth once daily Multivitamin, Therapeutic w/ Minerals 1 tab, Oral, Daily, Refill(s) 0 Start Date: 10/17/10 Status: Ordered omeprazole 40 mg delayed release oral capsule (18 sources) Proton Pump Inhibitor Start: 02-26-20 End: 06-06-20 24 take 1 capsule by mouth once daily omeprazole 40 mg Cap-DR 40 mg = 1 cap(s), Oral, Daily, # 90 cap(s), Refills(s) 4, Pharmacy: [facility]/pharmacy #[id number], 162.6, cm, 04/08/24 10:22:00 EDT, Height/Length Dosing, 112.7, kg, 04/08/24 10:22:00 EDT, Weight Dosing Start Date: 04/24/24 Status: Ordered Start: 04-02-2022 take 1 capsule by [facility] once daily omeprazole 40 mg Cap-DR 40 mg = 1 cap(s), Oral, Daily, # 90 cap(s), Refills(s) 3, Pharmacy: [facility]/pharmacy #[id number], 165, cm, 10/02/21 8:58:00 EST, [...] Daily, # 90 cap(s), Refills(s) 3, Pharmacy: [facility]/pharmacy #[id number], 165, cm, 10/02/21 8:58:00 EST, [...] current use of drug therapy; Translations: [Other halfway (current) drug therapy] Onset: 4 Episodic Other [...] Test Name Value Interpretation Reference Range Facil neli Family Medicine Office/Clini c Noteon 07-17-2024 Family Medicine Office/Clinic Note Family Medicine Office/Clinic Note HPI Staff Jose is a 74 year old female presenting with Onset: about a week now Location: left leg cellulitis Duration: Characteristics:_ itchy and red Aggravated by: Relieved by: Timing:_ Associated Symptoms:_ PT was today they are concerned about her leg, it is marked on her leg what they want you to look at. Saturday it was wrapped by morning it was very itchy. Therapy took off bandage on her leg and said not to put anything on it until it is looked at. They washed her leg and some spots started bleeding History of Present Illness pt presents today for cellulitis of left lower leg Review of Systems PHQ Score Initial Depression Screen Score: 0 SCORE Physical Exam Vitals & Measurements T: 36.5 ?C(Temporal Artery) HR: 78(Peripheral) RR: 20 BP: 160/90 SpO2: 98% HT: 64 in HT: 162.6 cm WT: 113.4 kg WT: 249.48 lb BMI: 42.89 General: alert, no acute distress ENMT: oral mucosa moist, no pharyngeal erythema or exudate Cardiovascular: regular rate and rhythm, normal peripheral perfusion Respiratory: Lungs CTA, respirations non labored Extremities: no deformity, no trauma Neurological: oriented x 4, LOC appropriate for age, CN II-XII intact, motor strength equal & normal bilaterally, speech normal left lower leg is red and warm to touch Assessment/Plan 1. Cellulitis of leg (L03.119: Cellulitis of unspecified part of limb) pt was encouraged to see PCP by lymphedema tech. they did not feel comfortable wrapping her legs due to severe itching, redness and warm to touch. will treat with Bactrim. RTC if no improvement next week. Ordered: sulfamethoxazole-tr imethoprim, 1 tab(s), Oral, BID for 10 day(s), 20 tab(s), Refill(s) 0, [id number], 162.6, cm, 07/17/24 13:02:00 EDT, Height/Length Dosing, 113.4, kg, 07/17/24 13:02:00 EDT, Weight Dosing 2. Non-smoker (Z78.9: Other specified health status) continue not smoking Ordered: sulfamethoxazole-tr imethoprim, 1 tab(s), Oral, BID for 10 day(s), 20 tab(s), Refill(s) 0, [id number], 162.6, cm, 07/17/24 13:02:00 EDT, Height/Length Dosing, 113.4, kg, 07/17/24 13:02:00 EDT, Weight Dosing Body Mass Index (BMI) documented 3008F Current tobacco non-user 1036F Depression Screening Negative 3352F Discharge medications reconciled with current medications in outpatient record 1111F Influenza immunization status assessed 1030F Most recent diastolic blood pressure >=90 mm Hg 3080F Most recent systolic blood pressure >= 140 mm Hg 3077F Patient screen for fall risk: no falls in last year or 1 fall with no injury in last year 1101F 3. BMI 40.0-44.9, adult (Z68.41: Body mass index [BMI] 40.0-44.9, adult) BMI eduction given Ordered: sulfamethoxazole-tr imethoprim, 1 tab(s), Oral, BID for 10 day(s), 20 tab(s), Refill(s) 0, [id number], 162.6, cm, 07/17/24 13:02:00 EDT, Height/Length Dosing, 113.4, kg, 07/17/24 13:02:00 EDT, Weight Dosing Body Mass Index (BMI) documented 3008F Current tobacco non-user 1036F Depression Screening Negative 3352F Discharge medications reconciled with current medications in outpatient record 1111F Influenza immunization status assessed 1030F Most recent diastolic blood pressure >=90 mm Hg 3080F Most recent systolic blood pressure >= 140 mm Hg 3077F Patient screen for fall risk: no falls in last year or 1 fall with no injury in last year 1101F 4. Class 2 severe obesity due to excess calories with serious comorbidity and body mass index (BMI) of 35.0 to 35.9 in adult (E66.01: Morbid (severe) obesity due to excess calories) see above Ordered: sulfamethoxazole-tr imethoprim, 1 tab(s), Oral, BID for 10 day(s), 20 tab(s), Refill(s) 0, [id number], 162.6, cm, 07/17/24 13:02:00 EDT, Height/Length Dosing, 113.4, kg, 07/17/24 13:02:00 EDT, Weight Dosing Body Mass Index (BMI) documented 3008F Current tobacco non-user 1036F Depression Screening Negative 3352F Discharge medications reconciled with current medications in outpatient record 1111F Influenza immunization status assessed 1030F Most recent diastolic blood pressure >=90 mm Hg 3080F Most recent systolic blood pressure >= 140 mm Hg 3077F Patient screen for fall risk: no falls in last year or 1 fall with no injury in last year 1101F Follow-up No qualifying data available Problem List/Past Medical History Ongoing Benign hypertension BMI 40.0-44.9, adult Cellulitis of leg Diastolic dysfunction without heart failure GERD (gastroesophageal reflux disease) Heart murmur, systolic Hyperlipidemia Left ear impacted cerumen Lumbar radiculopathy Lymphedema Morbid obesity Obstructive sleep apnea Osteopenia Peripheral arterial disease Prediabetes Routine adult health maintenance Vitamin D deficiency Historical Aneurysm of splenic artery Osteoarthritis Procedure/Surgical History Cataract extraction and insertion of intraocular lens (11/15/2020), Cataract extraction and insertion of intrao (more content not included)... Normal [facility] Comment on above: Result Comment: Elec tronically Signed By: Tayler Muller\.br\Date and Time Signed: 07/17/24 13:33 EDT Coding Summary.on 05-13-2024 Coding Summary. NANUIdtk40VWw9hMg+P GhlYWQ+EN7WHIIeS24v xQShuH4zH7AGGVsKYiz gQVBQTElOSyIgbmFtZT 1kaXNjZXJu IC8+LY5rFUXlOpdvlCC hy5S3yHZ5I70zqq7cRE rabDG9NBIqNwAjpjvzl 2peaRi7CMngDoymLoZu DAFlaE33MMF9rQ66Mf4 5aNPuuKSav7yccAi4Zz JjATQfOUM8nQjiYVafr 3ZiUUWnW02imQZiq5M6 IGNvbGxhcHNlOyBlbXB 2uF9hHOncshoww5ahsl aqFox4sr89qDUlq0I1p XL1G0AndoC8FGAnjOWn MrsulHIEhT4kpqshu0u khahaRzUuUOJxUIa3NQ e2ZQKbdXepXgUgSS09C LR5XHYfpkQkB1UwUPWh eShdRxX4r2G4Rp4EZ7E UKexsX7GWYTXRHOmfzE Q+LY31qg44P6EgWhrqZ uo1GFKuILF0aQC7aA5j LMRvOWpfb5L4mVK2J2C lpxBznd8tv9xjTMTnVO jvO59jdMYah6P6VVTxx WZ0SCFqlUfkHbSioW67 Oyc+DHPucOglh6XzCkt hr5mkm8immAr9IvbyAQ OofyXdkIczIMM1p1MsL h3lYSMklGS5zIS4gL4y MjUmRzV9RNyvS305TiP miKXzSybpH73aB6YodC A+WPSfTtk7VIBdjXppG V3uY1MuJYGawwtskVTu qKfpZX3fCPYkdijnDML mlN8dHGKeY6f7AoSdEy H0AZdkF3YuXPSbivbdW x98bQ8tKgMjIyX4TCaz G9XcwaT2BXThaOLiJGw yRTY9T38us0E1AUHwRX BiJLD8qJI5gY5qoOhgz jogbGVmdDsgdmVydGlj OMeuDSevM221UZKclIc nPkNvZGluZyBEYXRlOi AgMDYvMTkvMjAyNDwvd GQ+YQToYLV2mRccXRTm rUMzMRkgXb4dwSuadLk qKE7qTGXmrinmMFEswA 4vETRlrYZcaMpnNF0xO HAwqcewz868OwChCOX7 GNIzqQKdD1YdqU7gQbN tIBRiLGTpE9FfrSYwLW apO545ZYgdBlZ4ZIQzi sQzD7BmJWHqlEozNxL7 t9J3Av9Ol9BywbxsE9M nuOKmQjQiUnmpZEr3E1 RkPjwvdHI+DR89FDIwM N22PNr8RXB9rPcaEHcm TGNfM2YedQ5sMsIyEBN kZGRkOyc+PHRhYmxlIH dpZHRoPScxMDAlJyBzd UehPI1zKu6bMSBfYKEo xKlbxXTiOkIao7mdMYD qILjgMA1dmWicW0AbeG J8RJFmm1i0Xv44I70lO 3JvdXA+FKNcnDU0mTE6 bP3tViDeRaT6OMadA45 0KdHroTZcAbqdx3dhy9 vxfFk1UyQ7KNIbdqWgo NpwUAA6h7CcRw11B32u IHdpZHRoPSIxNSUiIHZ wzDiuuz1fjQ4nRu2+PG OrvSL6dMJ6nI5rTgTvU sN7RGpfG551XhIujVQf Bbyli5oxl6bmdZk2HxG fCEAcmqGxaQjqWNF4h8 QvCi49D1ItoThcy8DdO bw5se47cHRpe1X2lJN2 U7EkAULdwdqrkHFdtPe xRS2fVNUpybkcWMOdpG 1nTWLoG0k5FjMjTeA0V BqfD9DmzkX0CUHmuGAc MAOatMUNyZ7qymmhd1w yvefzSePfGIMbNYz6KO a1KVYhtWgwImWpPCI0N aL4IFS0gWOqdN3nhPxz pogpxV8vVzv+CJG7jQJ gsXXFMX3xMcpemAN+PH OxSYZ5nUdwRIuxNOJbj P7pHHFfO5i1ZkYfScN5 UEzzT7LqchE2RVErtMR sJCOlgBXBnC0kiffly6 ghbuipTsRgRCXkBTg5F Fg5IEXuaWznXaJeAJQ3 YhO8JHT4fBQtbK2aaLv daxggkJ6aXue+QmlydG rjENO9IJd0C2OsZpv9I BOwxLnxJS2nkWUgHCgj Ji4anXmelHnrFM8bALR eiiffe721MaEhg7mcQP AgzXVwPFmaETT0L96fr 8Y6SSOqXXQiECR4aJQ0 lY4zsDlbfdemxOIsjQx gdmVydGljYWwtYWxpZ2 47CWUebFhxDcKzWQu9I 9SpKjh5LAIxlOhuNH1z qVYiTUlwBw2kdDtfqUn wUY5aOKQwpiamr748Rc Dko4glFWCmkVXqOMuqQ KS7J30sn6L8GHZaWIQt CTM1iCI8iH9jbLpjfzy gbGVmdDsgdmVydGljYW abLTtoD562PTKrrCbuE mJszBq7X2FqZra0QZIa vEofSC3tjYMxIZiqKu1 deQaqmBxfDR7tRWQdva szw031TsUhz9yiKUZpp ECtSOgoGTY7M28lf0Y6 NPJoOXNoJFT2zPQ6mH0 hbGlnbjogbGVmdDsgdm DpuNtmTXioTBkjR665J HRvcDsnPlBhdGllbnQg IVqfVWv2Z6NfZqerqAJ +HU78UJIaHX65tDCziZ Tkr5gerAm1RzGoOSMxJ YJ3eFvvMMcdt6UvKMEj Q06yyWKkt2G3PSXjhQw akMXtDkUtxDW8jH3wMS wfwmaht9rvzzgyPydeq 8ssln43oW86I85iCViv ZHRoPSIzMCUiIHZhbGl rea4deC9vQc9+PGNvbC A7zQU4lJ1vLVSaYcQ5G JsdY072NwFmuFCcKtfu b5bze2fnvCh9QgG5QMY ijvGzxMhsSNJ7q5TvUu 56Q68cGLdjRXYbUUPjO PKqBVHcdJikse2hkF1p Ii8+NVOqgCJ9yPY4bW3 dNuEyNzF5LUjrW104Aj WyrKEaPxqoI06rN2Ehd XA+PVDdRzz3ICEnsTyu OY7qcSEpHVszRu7vBAJ 9XkBmUoBjTHgpE1MwHM TceuylouyduBY8DTRiJ EMlnT69Wr3cqMknCARf pRKJoN4pmhvbw0dradj qYtYxHSFoHOr4WEh3ZN UrwTvdWeNbJDV1YaZ5B AR3aZPeqE5hmLbcojpl rH1jY2HeCLNxftkxDn1 5lB8mOiFoAcC3GQdoQc c+Fj6BUzUBUSNGAUQHE 9HLKMKZEC58VK17tBDd u1J0sYK0U5VlVVDqwin wvfaqqZU2ESGcJDOfaB 74qSGsAAvmUn4pf9N3t 838UZRgYDRlqS30Am2e zGxyVFItaJKAnV0gblc fk6eddsenVuLmRDBkZY j0CSl7GTXrwZnjVgVvG FP1KyU9UGC5mJEirV8v oBtzogunsQ0sMbf+MDQ yHKNvTIn5MOuefPG+PH CnULF6uGqpRQeyCWJhk Y1cYKDkW7z1KuZwHlN3 ALxtW8AjYGOcpmrxOp4 8rO1sBeNbLqB9EPxvU3 YwrkC6NGZebBDkSZhpM NM2R51jf1X1QCCyCCCs VIE6hYE8dB8kcCsucsq gbGVmdDsgdmVydGljYW juIZowA085TCKskNqbP lz2CBkcUTGzFP69JK94 vYDxx4X8zKM4J0HrJFB txqzxuypccOJ7WWYiEW XajP49fTQwOCwfOs3gd 1H9u589OTOeVQBqoM78 Oh4yyIbqDWGrhMXWnL9 sskrba7jtdiqtNcPtJN LsXKe9CZr7EEIymRwuJ hNoCGF0XdO5XDH6gGYp kN9vaQeycvqzdH1nEbz +PaCjVDytOY20SI10yP Eud9C3wJA0U0JeJQHad uztcytygHY9YCJgLTUt cE77xIMxZQmjVv6wv8Q 6l619XYGdCTXxuM82Pz 7wgOlnQQGvlFDYqI9eb norh6sxilxiSsDjMJEf AGx0LYe5OFAswEesCdQ gAKN8XkW0LUB1kZOqbP 5tvPxqoitwjO9jVlt+T 0P9rON6dPXpwNnbsML+ PY75nu48E0ThZaiuAhg 8KTFnUXC4hSS5gY1zXC TfOZxhs4J0vTV0U2Kvs pOprb9os4tvLGBxXTdf F10djWNac5J1HEOhcQV 5RPNlrQcfBaLxyN43Wy c+LQDazKhjp5ArNgtvr 1zni2gwmBz7IeIzYBXt ldGliOxeZUD8g4GhVa2 6U75pLGsyFEGpOGAiYU IiZUBniZqmyx3hhU7gB i8+VKDhjJD3bEZ9pU2b AtGpAtM5AVbqG577GeA evRKrSmrcg8uoj0qjjG y9EvCxHOHnttHwvPdbO FU5h4KhWi23V9MszTxz f8HyEdx6em42zPWgs9W 1bDQ9G0LqUFVresixuP MkzByoFV0rGSSqhelbR CBijI2tYDJuI3g6YyTz FuY0XTtnN5RqwxL1CAU bjESzVGWtlJKAtO7hsv hgx6qppnywQxApMUKkW Gj2UCp3ZBAgbUqgBnCa VZI6LpE4PUR3zRJkiE9 ihFizlnddqH3uLyf+UG e3u5jgkMBfOA4koXI2W M57XI83lWCmg7W6lHY8 U3UtHLBxdkvrluipePI 1PTYkOCCugT78Nl5idJ wvSp3iLZCeEWJ1OGNlj COvB9HbvN1uPoWvEQNf CWXiQ4FjvRFkVQhsG06 2PKfbKuJ3WZUkgmDrR7 AkZVOvsSsqZaT6x4A7C n9EDS21OL38NG12sUFu b1C4zQF9R9WbPSTxkhn kftewvAI5HHKyDXQimI 20Ot5ynJieKm2tABFaP AV2JODfrPAoP5IulI4e YuYmYUIpCXJyZ2NyuJF tJVchO395MRxxTaL9BC AbonOgZ4NsMPWlqKnlH lW7m8R4Vb2KPi10KJ65 MP28bRPai7V8dAH0D8G xJVNmzwzkkdubwIX2RH LjKPUbyV44Nn9lbKhgM f8lHEDbRZY2OPBsxAOz D7LkfR3mJtYzJDFlSSJ wD4PleIBdGNtfQ523RA mgXjZ3CNOwwyDiX6XaB GSnsYsvMsX0x2O5Ki4J CFhmxix2O8ZnJeskxOC +DQ40GDJkIA19vHMpsH Zvi3ocsRb9ZxZwVDQiY DB5xJfvKEprz0WzKBTx L39cgMApy8T7O (more content not included)... Normal [facility] Consent for Treatmenton 04-25 Consent for Treatment [id number] 08#1.00TIFF Normal [facility] Heart and Vascular Office/Cl inic Noteon 05-04-2024 [...] virus vaccine, inactivated 08/01/2023 Recorded SARS-CoV-2 (COVID-19) mRNAMUL.ORD![id number] 09/27/2022 Recorded 2023-10-22: TPV70 influenza virus vaccine, inactivated 09/13/2022 Recorded SARS-CoV-2 (COVID-19) mRNA-1273 vaccine 06/28/2022 Recorded 2023-10-22: TPV70 SARS-CoV-2 (COVID-19) mRNA-1273 v (more content not included)... Normal [facility] Comment on above: Result Comment: Elec tronically Signed By: Noman ALLISON, Isela Johnson\.br\Date and Time Signed: 05/04/24 08:43 EDT Physician Orderon 05-04-2024 Physician Order [id number]#1.00TIFF Normal [facility] Ambulatory Visit Summaryon 0 04-08-2024 Ambulatory Visit Summary JOSE DAI :1950 Visit Date:04/08/2024 Ambulatory Visit Instructions Your [...] 8:00 AM EST With: Ellen Carlos Where: [facility] Invalid Interpretation Code [address], [place] [address]- \.br\ You Need to Schedule the Following Appointments\.br\ Follow Up with Daquan GRANADOS, Ellen Bonilla When: In 6 months\.br\ Comments:\.br\ CCM\.br\ Where:\.br\ [address], [address]\.br\ [place] [address].br\ \.br\ You Need to Complete the Following\.br\ Comprehensive Metabolic Panel, Blood, Routine collect, 04/08/24, Order for future visit, Lab Collect, Routine adult health maintenance [facility] Family Medicine Office/Clini c Noteon 04-08-2024 Family [...] DEXA (F>65, M>70): not due yet Specialists: [facility] Review of Systems PHQ Score Initial [...] Mouth: mucous membranes pink, moist and intact. [place] posterior oropharynx, no palatal inflammation, uvula midline, [...] Earwax removal done (more content not included)... [facility] Comment on above: Result Comment: Elec tronically Signed By: Ellen Carlos\.br\Date and Time Signed: 04/08/24 10:50 EDT Physician Referralon 024 Physician Referral [id number] 286#1.00TIFF [facility] Consultation Noteon 04-03-20 24 Consultation Note [id number] E#1.00TIFF Normal [facility] CBC w/ Auto Diffon 4 Basophils/100 WBC (Bld) 1.0 % Normal 0.0-2.0 [facility] Comment on above: Performed By: #### 2 [id number], [id number], [id number], [id number], [id number], [id number] ####[facility] [address] [place] [address] Basophils/Leukocytes Auto (Bld) [Pure # fraction] 0.1 E9/L Normal 0.0-0.2 [facility] Comment on above: Performed By: #### 2 [id number], [id number], [id number], [id number], 6150802, [id number] ####[address] [address] Eosinophils (Bld) [#/Vol] 0.6 E9/L High 0.0-0.5 [facility] Comment on above: Performed By: #### 2 853605, [id number], [id number], [id number], [id number], 6267808 ####[address] [address] Eosinophils/100 WBC (Bld) 7.2 % Normal 0.0-8.0 [facility] Comment on above: Performed By: #### 2 434252, [id number], [id number], [id number], 7541903, 9336239 ####[address] [place] [address] Erythrocyte distribution width (RBC) [Ratio] 13.6 % Normal 10.9-14.2 [facility] Comment on above: Performed By: #### 2 681146, [id number], [id number], [id number], 8974857, 9088186 ####[address] [address] Hematocrit (Bld) [Volume fraction] 38.1 % Normal 34.0-46.0 [facility] Comment on above: Performed By: #### 2 029139, 83616556, [id number], [id number], 0416872, 8267542 ####[facility] [address] [place] [address] Hemoglobin (Bld) [Mass/Vol] 12.7 g/dL Normal 12.0-16.0 [facility] Comment on above: Performed By: #### 2 999162, 16638696, 944808313, 158769751, 2900580, 3522305 ####[facility] [address] [place] [address] Lymphocytes (Bld) [#/Vol] 1.6 E9/L Normal 1.0-4.0 [facility] Comment on above: Performed By: #### 2 423614, 43322621, 128684127, 242198986, 3098085, 8217089 ####[facility] [address] [place] [address] Lymphocytes/100 WBC (Bld) 20.5 % Normal 14.0-50.0 [facility] Comment on above: Performed By: #### 2 605550, 50173474, 389090015, 418481297, 5026448, 7677087 ####[facility] [address] [place] [address] MCH (RBC) [Entitic mass] 28.3 pg Normal 27.0-34.0 [facility] Comment on above: Performed By: #### 2 575069, 48022286, 268847862, 153980610, 4097334, 4660223 ####[facility] [address] [place] [address] MCHC (RBC) [Mass/Vol] 33.3 g/dL Normal 31.4-36.0 [facility] Comment on above: Performed By: #### 2 572109, 60367992, 164185519, 220038464, 4183268, 7560805 ####[facility] [address] [place] [address] MCV (RBC) [Entitic vol] 85.0 fL Normal 80.0-100.0 [facility] Comment on above: Performed By: #### 2 029535, 39443340, 770861932, 200163724, 6389061, 7135937 ####[address] [address] Monocytes (Bld) [#/Vol] 0.9 E9/L Normal 0.2-1.0 [facility] Comment on above: Performed By: #### 2 727836, 10758558, 778042026, 009259258, 0474895, 5498370 ####[address] [address] Neutrophils (Bld) [#/Vol] 4.7 E9/L Normal 2.0-7.5 [facility] Comment on above: Performed By: #### 2 939022, 36545292, 771755545, 602666172, 8595348, 2151145 ####[address] [address] Neutrophils/100 WBC (Bld) 59.8 % Normal 36.0-75.0 [facility] Comment on above: Performed By: #### 2 086819, 68589417, 179378537, 282642956, 8912400, 6060048 ####[address] [address] Platelet 196.0 E9/L Normal 150.0-500.0 [facility] Comment on above: Performed By: #### 2 697870, 52433522, 189259580, 442758192, 9565944, 3217525 ####[address] [address] Platelet mean volume (Bld) [Entitic vol] 8.2 fL Normal 6.4-10.8 [facility] Comment on above: Performed By: #### 2 518228, 20347569, 708128668, 197621498, 5139657, 1507459 ####[facility] [address] [place] [address] RBC (Bld) [#/Vol] 4.5 E12/L Normal 4.3-5.9 [facility] Comment on above: Performed By: #### 2 766330, 26029270, 493077724, 095180536, 6507196, 1536887 ####[facility] [address] [place] [address] WBC corrected for nucl RBC Auto (Bld) [#/Vol] 7.8 E9/L Normal 4.0-11.0 [facility] Comment on above: Performed By: #### 2 357636, 75082683, 594409315, 774224235, 9273206, 5856858 ####[facility] [address] [place] [address] CHEMISTRYOrdered By: SYSTEM SYSTEM on 03-27-2024 25-hydroxyvitamin [...] (Bld) [Mass fraction] 5.8 % Normal <=5.9% [facility] [place]Auto[place] CMPon 03-27-2024 Albumin [Mass/Vol] 4.1 g/dL Normal 3.3-5.0 [facility] Comment on above: Performed By: #### 2 491277, 37088488, 549146814, 167256234, 8811920, 0479557 ####[facility] [address] [place] [address] Albumin/Globulin (S) [Mass conc ratio] 1.5 Normal 1.1-2.2 [facility] Comment on above: Performed By: #### 2 160420, 30084782, 919280095, 148996746, 5914724, 3765721 ####[facility] [address] [place] [address] ALP [Catalytic activity/Vol] 108 Int._Unit/L High 21-98 [facility] Comment on above: Performed By: #### 2 995376, 88898339, 069197079, 205899493, 2088553, 5940524 ####[address] [address] ALT No additional P-5'-P [Catalytic activity/Vol] 31 Int._Unit/L Normal 6-46 [facility] Comment on above: Performed By: #### 2 819949, 77832023, 015137154, 849583073, 3810489, 3771375 ####[address] [address] Anion gap [Moles/Vol] 13 mmol/L Normal 6-16 [facility] Comment on above: Performed By: #### 2 156131, 12894311, 435930661, 674700969, 8537802, 5195666 ####[facility] [address] [place] [address] AST [Catalytic activity/Vol] 19 Int._Unit/L Normal 5-43 [facility] Comment on above: Performed By: #### 2 368818, 95853996, 344246459, 304936470, 0091480, 0833857 ####[address] [place] [address] Bilirubin [Mass/Vol] 0.4 mg/dL Normal 0.0-1.1 [facility] Comment on above: Performed By: #### 2 903790, 72694364, 554625867, 426417259, 9982030, 3212152 ####[facility] [address] [place] [address] Calcium [Mass/Vol] 9.2 mg/dL Normal 8.9-11.1 [facility] Comment on above: Performed By: #### 2 881463, 12766225, 514195233, 438816498, 8074514, 9505703 ####[facility] [address] [place] [address] Chloride [Moles/Vol] 106 mmol/L Normal 101-111 [facility] Comment on above: Performed By: #### 2 412917, 65700446, 161284208, 640481182, 8222635, 9188758 ####[facility] [address] [place] [address] CO2 [Moles/Vol] 26 mmol/L Normal 21-31 [facility] Comment on above: Performed By: #### 2 165124, 66653098, 658358006, 359921291, 4199852, 8545187 ####[facility] [address] [place] [address] Creatinine [Mass/Vol] 0.8 mg/dL Normal 0.5-1.3 [facility] Comment on above: Performed By: #### 2 234112, 08832387, 704342083, 105134113, 6491873, 4216939 ####[facility] [address] [place] [address] Globulin (S) [Mass/Vol] 2.7 g/dL Normal 1.4-4.0 [facility] Comment on above: Performed By: #### 2 116963, 49800842, 739188545, 332024109, 0257115, 1551444 ####[facility] [address] [place] [address] Glucose [Mass/Vol] 112 mg/dL Normal 55-199 [facility] Comment on above: Performed By: #### 2 427439, 34009417, 606690511, 145270055, 7454546, 5051926 ####[facility] [address] [place] [address] Potassium [Moles/Vol] 4.5 mmol/L Normal 3.5-5.3 [facility] Comment on above: Performed By: #### 2 866937, 91398148, 717006683, 461789842, 1633376, 8936274 ####[address] [place] [address] Protein [Mass/Vol] 6.8 g/dL Normal 6.0-7.8 [facility] Comment on above: Performed By: #### 2 279837, 89761345, 219229047, 100369182, 4983425, 2338837 ####[facility] [address] [place] [address] Sodium [Moles/Vol] 140 mmol/L Normal 135-145 [facility] Comment on above: Performed By: #### 2 557969, 19418141, 927022187, 292309329, 6266294, 0602999 ####[facility] [address] [place] [address] Urea nitrogen [Mass/Vol] 14 mg/dL Normal 5-21 [facility] Comment on above: Performed By: #### 2 916114, 22122230, 765475236, 234768392, 5630232, 2319164 ####[facility] [address] [place] [address] Urea nitrogen/Creatinine [Mass ratio] 18 No Units Normal 10-20 [facility] Comment on above: Performed By: #### 2 953228, 11717588, 167360505, 983278727, 2577084, 1754449 ####[facility] [address] [place] [address] Consent for Treatmenton Consent for Treatment [id number] 81#1.00TIFF Normal [facility] HEMATOLOGYOrdered By: SYSTEM SYSTEM on 03-27-2024 Basophils/100 [...] Normal 4.0 - 11.0 E9/L Remisol Heme [id number] 03-27-2024 HbA1c (Bld) [Mass fraction] 5.8 % Normal <=5.9 [facility] Comment on above: Performed By: #### 2 071299, 98433602, 286172610, 452589264, 6583189, 0533672 ####[facility] [address] [place] [address] Lipid Panelon 03-27-2024 Cholesterol [Mass/Vol] 140 mg/dL Normal 120-200 [facility] Comment on above: Performed By: #### 2 442693, 01057608, 071335942, 551460042, 3644988, 3564792 ####[facility] [address] [place] [address] Cholesterol in HDL [Mass/Vol] 48 mg/dL Invalid Interpretation Code [facility] Comment on above: Result Comment: '>= 60 LOW RISK' '<= 40 HIGH RISK' Performed By: #### 2 173240, 90931877, 770230149, 310271800, 7916995, 9158581 ####[facility] [address] [place] [address] Cholesterol in LDL [Mass/Vol] 69 mg/dL Normal <=129 [facility] Comment on above: Performed By: #### 2 535486, 88750420, 085085928, 177715652, 9427213, 9309660 ####[facility] [address] [place] [address] Cholesterol in VLDL [Mass/Vol] 40 mg/dL Normal 7-40 [facility] Comment on above: Performed By: #### 2 609918, 59842490, 093348023, 448368824, 3642152, 4961398 ####[facility] [address] [place] [address] Triglyceride [Mass/Vol] 199 mg/dL High <=149 [facility] Comment on above: Performed By: #### 2 025680, 75448736, 899245520, 396182855, 8596318, 0195898 ####[facility] [address] [place] [address] Physician Orderon 03-27-2024 Physician Order [id number] 13#1.00TIFF Normal [facility] Vitamin D 25 Hydroxyon 03-27 25-hydroxyvitamin D3 [Mass/Vol] 27.7 ng/mL Low 30.0-100.0 [facility] Comment on above: Performed By: #### 2 905311, 56428266, 600876180, 245552590, 0470392, 8190458 ####[facility] [address] [place] [address] eGFRon 03-27-2024 eGFR 77 mL/min/1.73 m2 Normal >=59 [facility] Comment on above: Order Comment: Order added by Discern Expert. Performed By: #### 2 334844, 29524483, 993958732, 085215876, 9476226, 2418599 ####[facility] [address] [place] [address] Patient Educationon 03-18-20 Patient Education Endocrinology Diabetes [...] Carrots. Green beans. Tomatoes. Peppers. Onions. Cucumbers. [place] sprouts. Grains Whole grains, such as whole-wheat or whole-grain bread, crackers, tortillas, cereal, and pasta. Unsweetened oatmeal. (more content not included)... Normal [facility] Ambulatory Visit Summaryon 0 01-29-2024 Ambulatory Visit Summary SIMIN DAIJORIE Rodrigo :1950 Visit Date:01/29/2024 Ambulatory Visit Instructions Your [...] Follow-Up Appointments Saturday 8:00 AM EDT With: Ellen Carlos Where: [facility] Normal [address], [place] [address]- \.br\ You Need to Complete the Following\.br\ [...] (44 mL).\.br\ General instructions\.br\ ? \.br\ Take tyes-ikf-tzwrtzb and prescription medicines only as told by [...] Where to find more information\.br\ ? [facility] Family Medicine Office/Clini c Noteon 01-29-2024 Family [...] were given. Reviewed Medicare Prevention Services checklist. [facility]-Falls Prevention and home safety screening reviewed. Patient denies any falls in last 12 months, voices no worry about falling. Exhibits no problems with sitting, standing or ambulation. Patient aware with keeping walk way area free of clutter to prevent tripping and/or falling. [place] Advance Directives reviewed. Documents remain at home, [...] Labs were ordered, to be completed with [facility]. No concerns with bowel/ bladder. Colonoscopy last [...] directed. 3. On statin therapy (Z79.899: Other halfway (current) drug therapy) Patient encouraged to eat [...] of Hepatitis C for people born between 4064-9494. Handout CDC-Hepatitis C given. Patient to have [...] data avai (more content not included)... Normal [facility] Comment on above: Result Comment: Elec [...] liquor (44 mL). General instructions ? Take eipt-jml-xmjgufp and prescription medicines only as told by [...] important. Where to find more information ? [place] [employer]: www.diabetes.org ? Academy of Nutrition and Dietetics: www.eatright.org ? [place] [employer]: www.heart.org Contact a health care provider if: ? You have any of these symptoms: ? Increased hunger. ? Increased urination. ? Increased thirst. ? Fatigue. ? Vision changes, such as blurry vision. Get help right away i (more content not included)... Normal [facility] Screenson 01-29-2024 Screens [id number] B7#1.00TIFF [facility] Consultation Noteon 12-29-19 Consultation Note [id number] 04#1.00TIFF [facility] No Panel Informationon 12-27 Harper Flores 12/27/2023 2:10 PM L Inj/Asp: bilateral knee on 12/27/2023 9:02 AM Indications: pain Details: 25 G needle Medications (Right): 12 mg betamethasone acetate-betamethaso ne sodium phosphate 6 (3-3) MG/ML Medications (Left): 12 mg betamethasone acetate-betamethaso ne sodium phosphate 6 (3-3) MG/ML Consent was given by the patient. [facility] Radiology Study observation (narrative) [facility] XR Knee - left 3 [facility] Result: Bilateral standing PA, bilateral sunrise, and lateral of the affected knee were imaged today in the office. Patient has bilateral medial compartments xpvo-bv-ztof as well as patellofemoral disease no evidence of acute fracture or bony tumor seen. [facility] XR Knee - right 3 [facility] Result: Bilateral standing PA, bilateral sunrise, and lateral of the affected knee were imaged today in the office. Patient has bilateral medial compartments pakq-di-tszb as well as patellofemoral disease no evidence of acute fracture or bony tumor seen. [facility] Ambulatory Visit Summaryon 0 12-09-2023 Ambulatory Visit Summary JOSE DAI :1950 Visit Date:12/09/2023 Ambulatory Visit Instructions Your [...] Appointments Saturday 8:00 AM EST With: Where: [facility] Normal [address] [place] [address]- \.br\ You Need to Schedule the Following Appointments\.br\ Follow Up with Ellen Carlosce When: In 6 months\.br\ Comments:\.br\ CCM\.br\ Where:\.br\ [address]\ [place] [address]-\.br\ \.br\ Medications\.br\ What How Much When Why [...] day GERD (gastroesophageal reflux disease) Pickup at [facility]/pharmacy #[id number]\.br\ Unchanged glucosamine\.br\ Unchanged losartan (losartan [...] Every day Duration: 90 Days Pickup at [facility]/pharmacy #[id number]\.br\ Pharmacy Information\.br\ [facility]/pharmacy #[id number]: [address], [place] [phone]\.br\ Allergies\.br\ alendronate (Hives, Rash)\.br\ Problems\.br\ Ongoing - [...] hot sauces, and barbecue sauce.\.br\ ? \.br\ [place] fruit juices and citrus fruits, such as oranges, crystal, and limes.\.br\ ? \.br\ Tomato-based foods, such as red sauce, chili, salsa, and pizza with red sauce.\.br\ ? \.br\ Fried and fatty foods, such as donuts, [place] fries, potato chips, and high-fat dressings.\.br\ ? [...] health care provider.\.br\ Medicines\.br\ ? \.br\ Take aknm-sbm-tspporl and prescription medicines only as told by [...] your health care provider.\.br\ ? \.br\ Take alzw-wne-hhrowhv and prescription medicines only as told by your health care provider. Do not take aspirin or NSAIDs, such as ibuprofen, unless your health care provider told you to do so.\.br\ ? \.br\ Contact a health care provider if your symptoms do not improve or they get worse.\.br\ This information is not intended to replace advice given to you by your health care p [facility] Family Medicine Office/Clini c Noteon 12-09-2023 Family [...] Mouth: mucous membranes pink, moist and intact. [place] posterior oropharynx, no palatal inflammation, uvula midline, [...] Daily, # 90 tab(s), Refills(s) 1, Pharmacy: [facility]/pharmacy #[id number], 166, cm, 12/09/23 9:04:00 EST, Height/Length Dosing, [...] and weight management will be followed at [facility] (more content not included)... Normal [facility] Comment on above: Result Comment: Elec [...] vinegar, hot sauces, and barbecue sauce. ? [place] fruit juices and citrus fruits, such as oranges, crystal, and limes. ? Tomato-based foods, such as red sauce, chili, salsa, and pizza with red sauce. ? Fried and fatty foods, such as donuts, [place] fries, potato chips, and high-fat dressings. ? [...] your health care provider. Medicines ? Take vmrd-xzp-kemcgho and prescription medicines only as told by [...] by your health care provider. ? Take qeak-atd-cjjjggs and prescription medicines only as told by [...] provider. Document Revised: 05/17/2021 Document Reviewed: 05/17/2021 [employer] Patient Education ? 2022 [employer]im. Nutrition BMI for Adults What is BMI? [...] be difficult (more content not included)... Normal [facility] Ambulatory Visit Summaryon 1 12-23-2022 Ambulatory Visit Summary JOSE DAI :1950 Visit [...] 9:00 AM EST With: Ellen Carlos Where: [facility] Invalid Interpretation Code [address] [place] [address]- \.br\ Saturday 8:00 AM EDT \.br\ With: Ellen Carlos\.br\ Where: [facility] Family Medicine Office/Clini c Noteon 10-23-2023 Family [...] Mouth: mucous membranes pink, moist and intact. [place] posterior oropharynx, no palatal inflammation, uvula midline, [...] abdominal tendernes (more content not included)... Normal [facility] Comment on above: Result Comment: Elec [...] candy. ? Chewing gum. Medicines ? Take rjvk-orj-hmseede and prescription medicines only as told by [...] provider. Document Revised: 06/13/2021 Document Reviewed: 06/13/2021 [employer] Patient Education ? 2022 EndoStim. Pediatrics [employer] and [employer] P[employer], Pediatric It [...] after y (more content not included)... Normal [facility] Dexa Scanson 08-29-2023 Dexa Scans [id number] 36#1.00TIFF Normal [facility] Outside Mammographyon 2022 Outside Mammography [id number] 02#1.00TIFF Normal [facility] Dexa Scanson 08-23-2023 Dexa Scans [id number] A6#[id number]:127 Normal [facility] CHEMISTRYOrdered By: SYSTEM SYSTEM on 03-27-2023 25-hydroxyvitamin [...] 16 mg/dL Normal 5 - 21 mg/dL [facility] Remisol Urea nitrogen/Creatinine [Mass ratio] 18 mg/mg Normal 10 - 20 [facility] Remisol CHEMISTRYOrdered By: Jose Larose on 03-27-2023 HbA1c (Bld) [Mass fraction] 6.0 % High <=5.9% [facility] ChemAutoSS HEMATOLOGYOrdered By: SYSTEM SYSTEM on 03-27-2023 Basophils/100 WBC (Bld) 0.7 % Normal 0.0 - 2.0 % [facility] HemeAutoSS Basophils/Leukocytes Auto (Bld) [Pure # fraction] 0.1 E9/L Normal 0.0 - 0.2 E9/L [facility] HemeAutoSS Eosinophils/100 WBC (Bld) 4.7 % Normal 0.0 - 8.0 % [facility] HemeAutoSS Eosinophils/Leukocyt es Auto (Bld) [Pure # fraction] 0.4 E9/L Normal 0.0 - 0.5 E9/L [facility] HemeAutoSS Lymphocytes/100 WBC (Bld) 23.4 % Normal 14.0 - 50.0 % [facility] HemeAutoSS Lymphocytes/Leukocyt es Auto (Bld) [Pure # fraction] 1.9 E9/L Normal 1.0 - 4.0 E9/L [facility] HemeAutoSS Monocytes/100 WBC (Bld) 6.6 % Normal 4.0 - 14.0 % [facility]eAutoSS Monocytes/Leukocytes Auto (Bld) [Pure # fraction] 0.6 E9/L Normal 0.2 - 1.0 E9/L [facility] HemeAutoSS Neutrophils/100 WBC (Bld) 64.6 % Normal 36.0 - 75.0 % [facility]eAuto[facility] Neutrophils/Leukocyt es Auto (Bld) [Pure # fraction] 5.4 E9/L Normal 2.0 - 7.5 E9/L [facility] HemeAutoSS HEMATOLOGYOrdered By: Maryan Samaniego on 03-27-2023 Erythrocyte distribution width (RBC) [Ratio] 13.3 % Normal 10.9 - 14.2 % [facility] Hematocrit (Bld) [Volume fraction] 40.6 % Normal 34.0 - 46.0 % [facility] Hemoglobin (Bld) [Mass/Vol] 13.2 g/dL Normal [...] Gender:F Ordering : RUPA FINK Admission #: [id number] Family : Order #: [id number] CLICK HERE TO VIEW EXAM RADIOLOGY REPORT [...] Treatments None Family Cancers None LOCATION: [facility] BREAST COMPOSITION: Scattered areas fibroglandular density. [...] Hussein MD on 08/09/2022 at 12:21 Normal [facility] GLYCOHEMOGLOBIN A1Con 2021 ADA RECOMMENDATION ADA THERAPEUTIC TARGET 6.0 - 7.0 ACTION SUGGESTED > 7.0 Normal [facility] Comment on above: Performed By: #### A 1C #### [facility] [address] [place] [address] Dr. Nancy Thornton Glucose [Mass/Vol] 128 mg/dL Normal [facility] Comment on above: Performed By: #### A 1C #### [facility] [address] [place] [address] Dr. Nancy Thornton HbA1c (Bld) [Mass fraction] 6.1 % Critically high <=6.0 [facility] Comment on above: Performed By: #### A 1C #### [facility] [address] [place] [address] Dr. Nancy Thornton LIPID PROFILEon 03-01-2022 CHOL-HDL RATIO NORM SEE BELOW Normal [facility] Comment on above: Result Comment: 3.3 - 4.4 LOW RISK 4.4 - 7.1 AVERAGE RISK 7.1 - 11.0 MODERATE RISK >11.0 HIGH RISK Performed By: #### C MP, LIPID #### [facility] [address] [place] [address] Dr. Nancy Thornton Cholesterol [Mass/Vol] 143 mg/dL Normal <=200 [facility] Comment on above: Performed By: #### C MP, LIPID #### [facility] [address] [place] [address] Dr. Nancy Thornton Cholesterol in HDL [Mass/Vol] 56 mg/dL Normal 40-60 [facility] Comment on above: Performed By: #### C MP, LIPID #### [facility] [address] [place] [address] Dr. Nancy Thornton Cholesterol in LDL [Mass/Vol] 52.2 mg/dL Normal [facility] Comment on above: Performed By: #### C MP, LIPID #### [facility] [address] [address] [address] Nancy Thornton Cholesterol.total/Ch olesterol in HDL [Mass ratio] 2.6 {ratio} Normal [facility] Comment on above: Performed By: #### C MP, LIPID #### [facility] [address] [address] [address] Nanyc Thornton HDL NORMAL > or = 60 mg/dl - LOW CARDIOVASCULAR RISK <40 mg/dl - HIGH CARDIOVASCULAR RISK Normal [facility] Comment on above: Performed By: #### C MP, LIPID #### [facility] [address] [address] [address] Nancy Thornton LDL CALC NORMAL SEE BELOW Normal [facility] Comment on above: Result Comment: <100 mg/dl OPTIMAL 100 - 129 mg/dl NEAR OR ABOVE OPTIMAL 130 - 159 mg/dl BORDERLINE HIGH 160 - 189 mg/dl HIGH >190 mg/dl VERY HIGH Performed By: #### C MP, LIPID #### [facility] [address] [place] [address] Dr. Nancy Thornton Triglyceride [Mass/Vol] 174 mg/dL Critically high <=150 [facility] Comment on above: Performed By: #### C MP, LIPID #### [facility] [address] [place] [address] Dr. Nancy Thornton VLDL CALC 34.8 mg/dL Normal [facility] Comment on above: Performed By: #### C MP, LIPID #### [facility] [address] [place] [address] Dr. Nancy Thornton PROF 14(COMP METB)on 022 Albumin [Mass/Vol] 3.5 g/dL Normal 3.4-5.0 [facility] Comment on above: Performed By: #### C MP, LIPID #### [facility] [address] [place] [address] Dr. Nancy Thornton Albumin/Globulin [Mass ratio] 0.9 {ratio} Normal [facility] Comment on above: Performed By: #### C MP, LIPID #### [facility] [address] [place] [address] Dr. Nancy Thornton ALP [Catalytic activity/Vol] 123 U/L Critically high 46-116 [facility] Comment on above: Performed By: #### C MP, LIPID #### [facility] [address] [place] [address] Dr. Nancy Thornton ALT [Catalytic activity/Vol] 40 U/L Normal 14-59 [facility] Comment on above: Performed By: #### C MP, LIPID #### [facility] [address] [address] [address] Nancy Thornton Anion gap [Moles/Vol] 12.8 mmol/L Normal [facility] Comment on above: Performed By: #### C MP, LIPID #### [facility] [address] [place] [address] Dr. Nancy Thornton AST [Catalytic activity/Vol] 26 U/L Normal 15-37 [facility] Comment on above: Performed By: #### C MP, LIPID #### [facility] [address] [place] [address] Dr. Nancy Thornton Bilirubin [Mass/Vol] 0.5 mg/dL Normal 0.2-1.3 [facility] Comment on above: Performed By: #### C MP, LIPID #### [facility] [address] [place] [address] Dr. Nancy Thornton Calcium [Mass/Vol] 9.0 mg/dL Normal 8.5-10.1 [facility] Comment on above: Performed By: #### C MP, LIPID #### [facility] [address] [place] [address] Dr. Nancy Thornton Chloride [Moles/Vol] 105 mmol/L Normal 98-107 [facility] Comment on above: Performed By: #### C MP, LIPID #### [facility] [address] [address] [address] Nancy Thornton CO2 [Moles/Vol] 26.1 mmol/L Normal 22.0-30.0 [facility] Comment on above: Performed By: #### C MP, LIPID #### [facility] [address] [place] [address] Dr. Nancy Thornton Creatinine [Mass/Vol] 0.80 mg/dL Normal 0.52-1.04 [facility] Comment on above: Performed By: #### C MP, LIPID #### [facility] [address] [address] [address] Nancy Thornton EGFR-AF MAURITIAN >60 Normal >=60 [facility] Comment on above: Performed By: #### C MP, LIPID #### [facility] [address] [address] [address] Nancy Thornton EGFR-NON AF MAURITIAN >60 Normal >=60 [facility] Comment on above: Performed By: #### C MP, LIPID #### [facility] [address] [address] [address] Nancy Thornton Globulin (S) [Mass/Vol] 3.7 g/dL Normal [facility] Comment on above: Performed By: #### C MP, LIPID #### [facility] [address] [place] [address] Dr. Nancy Thornton Glucose [Mass/Vol] 105 mg/dL Normal 74-106 [facility] Comment on above: Performed By: #### C MP, LIPID #### [facility] [address] [address] [address] Nancy Thornton Potassium [Moles/Vol] 4.9 mmol/L Normal 3.4-5.0 [facility] Comment on above: Performed By: #### C MP, LIPID #### [facility] [address] [address] [address] Nancy Thornton Protein [Mass/Vol] 7.2 g/dL Normal 6.1-8.2 [facility] Comment on above: Performed By: #### C MP, LIPID #### [facility] [address] [address] [address] Nancy Thornton Sodium [Moles/Vol] 139 mmol/L Normal 137-145 [facility] Comment on above: Performed By: #### C MP, LIPID #### [facility] [facility] [address] [address] [address] Nancy Thornton Urea nitrogen [Mass/Vol] 15.0 mg/dL Normal 7.0-18.0 [facility] Comment on above: Performed By: #### C MP, LIPID #### [facility] [address] [place] [address] Dr. Nancy Thornton Urea nitrogen/Creatinine [Mass ratio] 18.8 mg/mg Normal [facility] Comment on above: Performed By: #### C MP, LIPID #### [facility] [address] [place] [address] Dr. Nancy Thornton VITAMIN D 25 OHon 03-01-2022 VIT D 25-OH 29.8 ng/mL Normal [facility] Comment on above: Performed By: #### V ITAD #### [facility] [address] [place] [address] Dr. Nancy Thornton VIT D RANGES SEE BELOW Normal [facility] Comment on above: Result Comment: <20 ng/mL Vit D deficient 20 - <30 ng/mL Vit D insufficient 30 - 100 ng/mL Vit D sufficient >100 ng/mL Potential Toxicity Performed By: #### V ITAD #### [facility] [address] [place] [address] Dr. Nancy Thornton LIPID PROFILEon 09-14-2021 CHOL-HDL RATIO NORM SEE BELOW Normal [facility] Comment on above: Result Comment: 3.3 - 4.4 LOW RISK 4.4 - 7.1 AVERAGE RISK 7.1 - 11.0 MODERATE RISK >11.0 HIGH RISK Performed By: #### C MP, LIPID #### [facility] [address] [place] [address] Dr. Nancy Thornton Cholesterol [Mass/Vol] 138 mg/dL Normal <=200 [facility] Comment on above: Performed By: #### C MP, LIPID #### [facility] [address] [place] [address] Dr. Nancy Thornton Cholesterol in HDL [Mass/Vol] 58 mg/dL Normal [facility] Comment on above: Performed By: #### C MP, LIPID #### [facility] [address] [place] [address] Dr. Nancy Thornton Cholesterol in LDL [Mass/Vol] 37.4 mg/dL Normal [facility] Comment on above: Performed By: #### C MP, LIPID #### [facility] [address] [address] [address] Nancy Thornton Cholesterol.total/Ch olesterol in HDL [Mass ratio] 2.4 {ratio} Normal [facility] Comment on above: Performed By: #### C MP, LIPID #### [facility] [address] [address] [address] Nancy Thornton HDL NORMAL > or = 60 mg/dl - LOW CARDIOVASCULAR RISK <40 mg/dl - HIGH CARDIOVASCULAR RISK Normal [facility] Comment on above: Performed By: #### C MP, LIPID #### [facility] [address] [address] [address] Nancy Thornton LDL CALC NORMAL SEE BELOW Normal [facility] Comment on above: Result Comment: <100 mg/dl OPTIMAL 100 - 129 mg/dl NEAR OR ABOVE OPTIMAL 130 - 159 mg/dl BORDERLINE HIGH 160 - 189 mg/dl HIGH >190 mg/dl VERY HIGH Performed By: #### C MP, LIPID #### [facility] [address] [address] [address] Nancy Thornton Triglyceride [Mass/Vol] 213 mg/dL Critically high <=150 [facility] Comment on above: Performed By: #### C MP, LIPID #### [facility] [address] [address] [address] Nancy Thornton VLDL CALC 42.6 mg/dL Normal [facility] Comment on above: Performed By: #### C MP, LIPID #### [facility] [address] [address] [address] Nancy Thornton PROF 14(COMP METB)on 021 Albumin [Mass/Vol] 3.5 g/dL Normal 3.5-5.0 [facility] Comment on above: Performed By: #### C MP, LIPID #### [facility] [address] [address] [address] Nancy Thornton Albumin/Globulin [Mass ratio] 1.0 {ratio} Normal [facility] Comment on above: Performed By: #### C MP, LIPID #### [facility] [address] [address] [address] Nancy Thornton ALP [Catalytic activity/Vol] 96 U/L Normal 38-126 [facility] Comment on above: Performed By: #### C MP, LIPID #### [facility] [address] [address] [address] Nancy Thornton ALT [Catalytic activity/Vol] 44 U/L Normal 9-52 [facility] Comment on above: Performed By: #### C MP, LIPID #### [facility] [address] [address] [address] Nancy Thornton Anion gap [Moles/Vol] 8.8 mmol/L Normal [facility] Comment on above: Performed By: #### C MP, LIPID #### [facility] [address] [place] [address] Dr. Nancy Thornton AST [Catalytic activity/Vol] 24 U/L Normal 14-36 [facility] Comment on above: Performed By: #### C MP, LIPID #### [facility] [address] [address] [address] Nancy Thornton Bilirubin [Mass/Vol] 0.4 mg/dL Normal 0.2-1.3 [facility] Comment on above: Performed By: #### C MP, LIPID #### [facility] [address] [place] [address] Dr. Nancy Thornton Calcium [Mass/Vol] 8.7 mg/dL Normal 8.4-10.[address] [facility] Comment on above: Performed By: #### C MP, LIPID #### [facility] [address] [address] [address] Nancy Thornton Chloride [Moles/Vol] 105 mmol/L Normal 98-107 [facility] Comment on above: Performed By: #### C MP, LIPID #### [facility] [address] [address] [address] Nancy Thornton CO2 [Moles/Vol] 29.3 mmol/L Normal 22.0-30.0 [facility] Comment on above: Performed By: #### C MP, LIPID #### [facility] [address] [place] [address] Dr. Nancy Thornton Creatinine [Mass/Vol] 0.81 mg/dL Normal 0.52-1.04 [facility] Comment on above: Performed By: #### C MP, LIPID #### [facility] [address] [address] [address] Nancy Thornton EGFR-AF MAURITIAN >60 Normal >=60 [facility] Comment on above: Performed By: #### C MP, LIPID #### [facility] [address] [place] [address] Dr. Nancy Thornton EGFR-NON AF MAURITIAN >60 Normal >=60 [facility] Comment on above: Performed By: #### C MP, LIPID #### [facility] [address] [place] [address] Dr. Nancy Thornton Globulin (S) [Mass/Vol] 3.6 g/dL Normal [facility] Comment on above: Performed By: #### C MP, LIPID #### [facility] [address] [place] [address] Dr. Nancy Thornton Glucose [Mass/Vol] 103 mg/dL Normal 74-[address] [facility] Comment on above: Performed By: #### C MP, LIPID #### [facility] [address] [place] [address] Dr. Nancy Thornton Potassium [Moles/Vol] 4.1 mmol/L Normal 3.4-5.0 [facility] Comment on above: Performed By: #### C MP, LIPID #### [facility] [address] [place] [address] Dr. Nancy Thornton Protein [Mass/Vol] 7.1 g/dL Normal 6.1-8.[address] [facility] Comment on above: Performed By: #### C MP, LIPID #### [facility] [address] [place] [address] Dr. Nancy Thornton Sodium [Moles/Vol] 139 mmol/L Normal 137-[address] [facility] Comment on above: Performed By: #### C MP, LIPID #### [facility] [address] [place] [address] Dr. Nancy Thornton Urea nitrogen [Mass/Vol] 21.0 mg/dL Critically high 7.0-17.0 [facility] Comment on above: Performed By: #### C MP, LIPID #### [facility] [address] [address] [address] Nancy Thornton Urea nitrogen/Creatinine [Mass ratio] 25.9 mg/mg Normal [facility] Comment on above: Performed By: #### C MP, LIPID #### [facility] [address] [address] [address] Nancy Thornton Vital Signs Date Time Vital Sign Value Performing Clinician Facility 05-04-2024 08:11-0400 Diastolic blood pressure 94 mm[Hg] Isela Tineo [facility] 05-04-2024 08:11-0400 Mean blood pressure 124 mm[Hg] Isela Edwardsan [facility] 05-04-2024 08:11-0400 Systolic blood pressure 184 mm[Hg] Isela Edwardsan [facility] 05-04-2024 07:51-0400 Blood Pressure Location Isela Tineo [facility] 05-04-2024 07:51-0400 Diastolic blood pressure 78 mm[Hg] Isela Tineo [facility] 05-04-2024 07:51-0400 Heart rate 78 /min Isela Tineo [facility] 05-04-2024 07:51-0400 SaO2% (BldA) [Mass fraction] 99 % Isela Tineo [facility] 05-04-2024 07:51-0400 Systolic blood pressure 144 mm[Hg] Isela Ewdardsan [facility] 04-08-2024 10:15-0400 Blood Pressure Location Ellen Butt [facility] 04-08-2024 10:15-0400 Body temperature 96.98 [degF] Ellen Missler [facility] 04-08-2024 10:15-0400 Diastolic blood pressure 72 mm[Hg] Ellen Missler [facility] 04-08-2024 10:15-0400 Heart rate 79 /min Ellen Missler [facility] 04-08-2024 10:15-0400 SaO2% (BldA) [Mass fraction] 97 % Ellen Missler [facility] 04-08-2024 10:15-0400 Systolic blood pressure 130 mm[Hg] Ellen Missler [facility] 01-29-2024 08:05-0500 Blood Pressure Location Ellen Missler [facility] 01-29-2024 08:05-0500 Body temperature 98.06 [degF] Ellen Missler [facility] 01-29-2024 08:05-0500 Diastolic blood pressure 70 mm[Hg] Ellen Missler [facility] 01-29-2024 08:05-0500 Heart rate 67 /min Ellen Missler [facility] 01-29-2024 08:05-0500 SaO2% (BldA) [Mass fraction] 97 % Ellen Missler [facility] 01-29-2024 08:05-0500 Systolic blood pressure 132 mm[Hg] Ellen Missler [facility] 12-27-2023 08:26-0500 Body height 165.1 cm Giuliano Florence PA Work Phone: [facility] 12-27-2023 08:26-0500 Body mass index (BMI) [Ratio] 42.77 kg/m2 [facility] Work Phone: [facility] 12-27-2023 08:26-0500 Body temperature 98.01 [degF] [facility] PA Work Phone: [facility] 12-27-2023 08:26-0500 Body weight 116.57 kg [facility] PA Work Phone: [facility] 12-09-2023 08:58-0500 Blood Pressure Location Ellen Butt [facility] 12-09-2023 08:58-0500 Body temperature 97.52 [degF] Ellen Butt [facility] 12-09-2023 08:58-0500 Diastolic blood pressure 76 mm[Hg] Ellen Butt [facility] 12-09-2023 08:58-0500 Heart rate 63 /min Ellen Butt [facility] 12-09-2023 08:58-0500 SaO2% (BldA) [Mass fraction] 98 % Ellen Butt [facility] 12-09-2023 08:58-0500 Systolic blood pressure 138 mm[Hg] Ellen Butt [facility] 10-23-2023 10:40-0500 Blood Pressure Location Ellen Butt [facility] 10-23-2023 10:40-0500 Body temperature 97.7 [degF] Ellen Butt [facility] 10-23-2023 10:40-0500 Diastolic blood pressure 74 mm[Hg] Ellen Butt [facility] 10-23-2023 10:40-0500 Heart rate 75 /min Ellen Butt [facility] 10-23-2023 10:40-0500 SaO2% (BldA) [Mass fraction] 98 % Ellen Butt [facility] 10-23-2023 10:40-0500 Systolic blood pressure 136 mm[Hg] Ellen Butt [facility] 09-20-2023 10:30-0400 Body height Dipti Barajas Other [employer] Other 09-20-2023 10:30-0400 Body mass index (BMI) [Ratio] 42.1 kg/m2 Dipti Barajas Other [employer] Other 09-20-2023 10:30-0400 Body weight 114.76 kg Dipti Barajas Other [employer] Other 09-20-2023 10:30-0400 Diastolic blood pressure 74 mm[Hg] Dipti Barajas Other [employer] Other 09-20-2023 10:30-0400 SaO2% (BldA) [Mass fraction] 97 % Dipti Barajas Other [employer] Other 09-20-2023 10:30-0400 Systolic blood pressure 166 mm[Hg] Dipti Barajas Other [employer] Other 03-01-2023 11:43-0400 Diastolic blood pressure 90 mm[Hg] Ellen Wardler [facility] 03-01-2023 11:43-0400 Mean blood pressure 109 mm[Hg] Ellen Butt [facility] 03-01-2023 11:43-0400 Systolic blood pressure 148 mm[Hg] Ellen Butt [facility] 08-15-2022 16:00-0400 Body height Dipti Barajas Other [employer] Other 08-15-2022 16:00-0400 Body mass index (BMI) [Ratio] 42.26 kg/m2 Dipti Barajas Other [employer] Other 08-15-2022 16:00-0400 Body temperature 97.7 [degF] Dipti Barajas Other [employer] Other 08-15-2022 16:00-0400 Body weight 115.21 kg Dipti Barajas Other [employer] Other 08-15-2022 16:00-0400 Diastolic blood pressure 78 mm[Hg] Dipti Barajas Other [employer] Other 08-15-2022 16:00-0400 SaO2% (BldA) [Mass fraction] 98 % Dipti Barajas Other [employer] Other 08-15-2022 16:00-0400 Systolic blood pressure 149 mm[Hg] Dipti Barajas Other [employer] Other 06-21-2022 15:03-0400 Blood Pressure Location Isela Tineo [facility] 06-21-2022 15:03-0400 Diastolic blood pressure 78 mm[Hg] Mohamed Noman [facility] 06-21-2022 15:03-0400 Heart rate 80 /min Isela Noman [facility] 06-21-2022 15:03-0400 SaO2% (BldA) [Mass fraction] 98 % Isela Noman [facility] 06-21-2022 15:03-0400 Systolic blood pressure 131 mm[Hg] Isela Noman [facility] 05-21-2022 09:58-0400 Diastolic blood pressure 74 mm[Hg] Isela Noman [facility] 05-21-2022 09:58-0400 Mean blood pressure 105 mm[Hg] Isela Noman [facility] 05-21-2022 09:58-0400 Systolic blood pressure 167 mm[Hg] Isela Noman [facility] 05-21-2022 09:54-0400 Blood Pressure Location Isela Noman [facility] 05-21-2022 09:54-0400 Diastolic blood pressure 77 mm[Hg] Isela Noman [facility] 05-21-2022 09:54-0400 Heart rate 74 /min Isela Noman [facility] 05-21-2022 09:54-0400 SaO2% (BldA) [Mass fraction] 99 % Isela Noman [facility] 05-21-2022 09:54-0400 Systolic blood pressure 160 mm[Hg] Isela Noman [facility] 04-10-2022 11:38-0400 Blood Pressure Location Rupa FINK [facility] 05-17-2022 11:38-0400 Body temperature 98.6 [degF] Rupa FINK [facility] 04-10-2022 11:38-0400 Diastolic blood pressure 74 mm[Hg] Rupa SPETTEL [facility] 04-10-2022 11:38-0400 Heart rate 73 /min Rupa MCDUFFIEEL [facility] 04-10-2022 11:38-0400 SaO2% (BldA) [Mass fraction] 96 % Rupa MCDUFFIEEL [facility] 04-10-2022 11:38-0400 Systolic blood pressure 130 mm[Hg] Rupa MCDUFFIEEL [facility] Encounters Encounter Date Encounter Type Care Provider Facility Start: 01-29-2025 ambulatory Ellen Butt Facility:[facility] Start: 10-19-2024 ambulatory Ellen Butt Facility:[facility] Start: 08-18-2024 ambulatory Tayler L Silvia Facility: [facility] [place] Start: 07-17-2024 End: 07-17-2024 ambulatory Tayler L Silvia Facility:[facility] [place] [facility] Start: 07-16-2024 End: 07-16-2024 ambulatory FRANKIE A BROWN Not Available Start: 06-25-2024 End: 06-25-2024 ambulatory FRANKIE A BROWN Not Available Start: 06-04-2024 End: 06-04-2024 ambulatory FRANKIE A BROWN Not Available Start: 05-14-2024 End: 05-14-2024 ambulatory FRANKIE A BROWN Not Available Start: 05-04-2024 End: 05-04-2024 ambulatory [place] Butt [facility] Start: 05-04-2024 End: 05-04-2024 Patient encounter procedure Isela Tineo [facility] Start: 04-30-2024 End: 04-30-2024 ambulatory FRANKIE VIVAR Not Available Start: 04-09-2024 End: 04-09-2024 ambulatory FRANKIE VIVAR Not Available Start: 04-08-2024 End: 04-08-2024 ambulatory Ellen Butt Facility:[facility] Start: 04-08-2024 End: 04-08-2024 Patient encounter procedure Ellen Butt [facility] Start: 04-08-2024 End: 04-08-2024 Well adult monitoring check done Ellen Butt [facility] Start: 04-03-2024 End: 04-03-2024 ambulatory GIULIANO GARCIA Not Available Start: 03-27-2024 End: 03-27-2024 ambulatory Ellen Butt [facility] Start: 03-27-2024 End: 03-27-2024 Patient encounter procedure Ellen Butt [facility] Start: 01-30-2024 End: 01-30-2024 ambulatory FRANKIE VIVAR Not Available Start: 01-29-2024 End: 01-29-2024 ambulatory Ellen Butt Facility:[facility] Start: 01-29-2024 End: 01-29-2024 Patient encounter procedure Ellen Butt [facility] Start: 01-29-2024 End: 01-29-2024 Well adult monitoring check done Ellen Butt 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 Start: 11-21-2023 End: 11-21-2023 ambulatory FRANKIE VIVAR Not Available Start: 10-31-2023 End: 10-31-2023 ambulatory FRANKIE VIVAR Not Available Start: 10-23-2023 End: 10-23-2023 ambulatory Ellen Barfieldce Daquan Facility:[facility] Start: 10-23-2023 End: 10-23-2023 Patient encounter procedure Ellenkhris Butt [facility] Start: 09-20-2023 Office outpatient vi sit 15 minutes Dipti [facility] Start: 09-20-2023 End: 09-20-2023 ambulatory [facility] [employer] Other Start: 04-19-2023 End: 04-19-2023 Patient encounter procedure Ellenrhina Butt [facility] Start: 03-27-2023 End: 03-27-2023 Patient encounter procedure Ellenrhina Butt [facility] Start: 03-01-2023 End: 03-01-2023 Patient encounter procedure Ellen Butt [facility] Start: 08-15-2022 End: 08-15-2022 Patient encounter procedure Rupa Fink Work Phone: [facility] Start: 08-15-2022 End: 08-15-2022 ambulatory Dipti Barajas Other [employer] Other Start: 08-15-2022 Office outpatient vi sit 25 minutes Dipti Barajas [facility] Start: 08-09-2022 End: 08-10-2022 ambulatory RUPA FINK Facility:[facility] Start: 06-21-2022 End: 06-21-2022 Patient encounter procedure Isela Tineo [facility] Start: 06-11-2022 End: 07-19-2022 ambulatory RUPA FINK Facility:[facility] Start: 05-21-2022 End: 05-21-2022 Patient encounter procedure Isela Tineo [facility] Start: 04-10-2022 End: 04-10-2022 Patient encounter procedure Rupa FINK [facility] Start: 03-01-2022 End: 03-02-2022 ambulatory RUPA FINK Facility:[facility] Start: 09-14-2021 End: 09-15-2021 ambulatory RUPA FINK Facility:[facility] Procedures Date Procedure Procedure Detail Performing Clinician Start: 12-27-2023 Arthrocentesis aspir &/inj major jt/bursa w/o us Giuliano MANSFIELD Work Phone: Start: 12-27-2023 Radiologic examinati on knee 3 views Giuliano MANSFIELD Work Phone: Start: 11-15-2020 Cataract extraction and insertion of intraocular lens Rupachyna FINK Start: 11-01-2020 Cataract extraction and insertion of intraocular lens Rupa SPEJANE Start: 06-11-2018 Colonoscopy Giuliano MANSFIELD Work Phone: Start: 06-11-2018 Colonoscopy Rupa BARROW Plan of Treatment Date Care Activity Detail Author Start: 06-11-2028 Screening for malign ant neoplasm of colon [facility] Start: 01-30-2024 End: 01-30-2024 Patient encounter procedure 01/30/2024 8:50 AM EST Procedure Visit [facility] [address] [facility] [address] [place] [address] Frankie Vivar, DPM [address] [facility] [address] [place] [address] [facility] Start: 12-27-2023 End: 12-27-2023 Patient encounter procedure 12/27/2023 8:30 AM EST Office Visit [facility] [address] [place] [address] Giuliano Garcia PA [address] [place] [address] [place], [place] [id number] [facility] Start: 1990 Screening for malign ant neoplasm of breast Mammogram [facility] Start: 1950 Screening for malign ant neoplasm of colon [facility] Immunizations Immunization Date Immunization Notes Care Provider Fa sally 08-01-2023 influenza virus vacc ine, unspecified formulation Ellen Butt [facility] 09-27-2022 SARS-CoV-2 (COVID-19 ) [id number] Ellen Butt [facility] Comment on above: Result Comment: 2022: [id number] 09-13-2022 influenza virus vacc ine, unspecified formulation Ellen Butt [facility] 06-28-2022 SARS-CoV-2 (COVID-19 ) mRNA-1273 vaccine Ellen Butt [facility] Comment on above: Result Comment: 2022: [id number] 10-05-2021 SARS-CoV-2 (COVID-19 ) mRNA-1273 vaccine Ellen Butt [facility] Comment on above: Result Comment: 2022: [id number] 09-06-2021 influenza virus vacc ine, unspecified formulation Rupa ALEKS [facility] 08-31-2021 influenza virus vacc ine, unspecified formulation Ellen Butt [facility] 02-15-2021 SARS-CoV-2 (COVID-19 ) mRNA-1273 vaccine Rupa FALLONEVEPATO [facility] Comment on above: Result Comment: 2nd Vaccime 01-18-2021 SARS-CoV-2 (COVID-19 ) mRNA-1273 vaccine Rupa FINK [facility] Comment on above: Result Comment: 1st Vaccine 12-09-2020 zoster vaccine, live Stefany FINK [facility] 09-08-2020 influenza virus vacc ine, unspecified formulation Rupa ALEKS [facility] 09-08-2020 zoster vaccine, live Stefany FINK [facility] 07-23-2019 influenza virus vacc ine, unspecified formulation Ellen Missler [facility] 12-02-2018 pneumococcal polysaccharide vaccine, 23 valent Ellen Wardler [facility] 09-18-2018 influenza virus vacc ine, unspecified formulation Rupa FINK [facility] 09-27-2016 pneumococcal conjuga te vaccine, 13 valent Rupa FALLONTTEL [facility] 09-20-2016 pneumococcal polysaccharide vaccine, 23 valent Rupa FALLONTTPATO [facility] 10-11-2015 influenza virus vacc ine, unspecified formulation Ellen Wardler [facility] 10-05-2013 influenza virus vacc ine, unspecified formulation Ellen Missler [facility] 03-25-2013 pneumococcal polysaccharide vaccine, 23 valent Ellen Wardler [facility] 12-03-2012 influenza virus vacc ine, unspecified formulation Ellen Missler [facility] 11-05-2012 zoster vaccine, live Ellen Wardler [facility] Payers Date Payer Category Payer Unknown [employer] [id number] 2022-Present [address] [place] [address] [id number] 2022 Self-pay [id number] 2015 Medicare MEDICARE MEDICAR E PART B [id number] 2015-[place] [address] Medicare [id number] 1959 Medicare [id number] 1959 Unknown [id number] 1950 Unknown [id number] 1950 Unknown [id number] 1950 Unknown [id number] 1950 Unknown [id number] 1950 Unknown [id number] 1950 Unknown [id number] 1950 Unknown [id number] 2.16.840.1.731748.3.579.2.1259 1950 Unknown [id number] 2.16.840.1.583289.3.579.2.1259 1950 Unknown [id number] 2.16.840.1.866794.3.579.2.1259 1950 Unknown [id number] .16.840.1.364515.3.579.2.1259 1950 Unknown [id number] 2.16.840.1.106334.3.579.2.1258 1950 Unknown [id number] 2.16.840.1.962494.3.579.2.1258 1950 Unknown [id number] 2.16.840.1.053566.3.579.2.1258 1950 Unknown [id number] 2.16.840.1.179263.3.579.2.1258 1950 Unknown [id number] 2.16.840.1.702262.3.579.2.1258 1950 Unknown [id number] 2.16.840.1.821823.3.579.2.1258 1950 Unknown [id number] 2.16.840.1.129430.3.579.2.1258 1950 Unknown [id number] 2.16.840.1.257667.3.579.2. 1950 Unknown [id number] 2.16.840.1.713893.3.579.2. 1950 Unknown [id number] 2.16.840.1.559042.3.579.2. 1950 Unknown [id number] 2.16.840.1.802138.3.579.2. 1950 Unknown [id number] 2.16.840.1.271829.3.579.2. 1950 Unknown [id number] 2.16.840.1.304021.3.579.2. 1950 Unknown [id number] 2.16.840.1.631641.3.579.2. 1950 Unknown [id number] 2.16.840.1.523085.3.579.2. 1950 Unknown [id number] 2.16.840.1.712602.3.579.2.727 1950 Unknown [id number] 2.16.840.1.863084.3.579.2.727 Unknown Standard LIfe Ins [id number] Unknown [id number] 2.16.840.1.567794.3.579.2.531 Social History Date Type Detail Facility Start: 04-10-2022 End: 05-04-2024 Tobacco smoking status Never smoked tobacco (finding) [facility] Comment on above: denies use Tobacco smoking status Never [facility] Comment on above: denies use Start: 11-21-2023 Sex Assigned At Female [facility] Start: 1950 Sex Assigned At Female [facility] Start: 07-04-2023 Tobacco use and exposure Smokeless tobacco non-user [facility] Start: 11-21-2023 End: 12-27-2023 Alcohol intake Lifetime non-drinker (finding) [facility] Start: 11-21-2023 History of Social function [facility] Start: 1950 Sex Assigned At Not on file [facility] NEGATED: Highlighted rowStart: NINF History of tobacco use Passive smoker [facility] Medical Equipment Procedure Code Equipment Code Equipment Origin al Text Equipment Identifier Dates [id number] FDA Start: 11-01-2020 [id number] FDA Start: 11-15-2020 TOE JOINT POROUS MEDIUM FDA Start: 10-15-2018 Functional Status Date Assessment Result Facility 05-04-2024 Functional Status No [facility] 04-08-2024 Functional Status N/A [facility] 01-29-2024 Functional Status N/A [facility] 12-09-2023 Functional Status N/A [facility] 10-23-2023 Functional Status N/A [facility] 06-21-2022 Functional Status No [facility] 05-21-2022 Functional Status No [facility] Clinical Notes 10-02-2021 to 03-18-2024 Harper Daviding - 12/27/2023 8:30 AM ESTTodd DONAL Lewis [...] provider. Document Revised: 04/02/2022 Document Reviewed: 04/02/2022 [employer] Patient Education 2022 [employer]. 03/18/2024 12:27:54 Health Maintenance After Age 65 [...] of the medicines you are taking, including qpmv-rwb-ikjfslc medicines. Ask your health care provider about [...] feel dizzy, tiredness (fatigue), or off-balance. Take zzzb-kur-gwafbyc and prescription medicines only as told by [...] provider. Document Revised: 04/02/2022 Document Reviewed: 04/02/2022 [employer] Patient Education 2022 [employer] 03/18/2024 12:27:52 Dyslipidemia Dyslipidemia Dyslipidemia is an [...] quitting, ask your health care provider. Take vzjp-ltt-nvltxjc and prescription medicines only as told by [...] provider. Document Revised: 01/15/2022 Document Reviewed: 01/15/2022 [employer] Patient Education 2022 [employer]. 03/18/2024 12:27:51 Diabetes Mellitus and Nutrition, Adult [...] Carrots. Green beans. Tomatoes. Peppers. Onions. Cucumbers. [place] sprouts. Grains Whole grains, such as whole-wheat [...] meet with a certified diabetes care and dean of education? Do I need to meet with a dietitian? What number can I call if I have questions? When are the best times to check my blood glucose? Where to find more information: [place] Diabetes Association: diabetes.org Academy of Nutrition and Dietetics: eatright.org National [place] of Diabetes and Digestive and Kidney Diseases: [...] provider. Document Revised: 06/14/2021 Document Reviewed: 06/14/2021 [employer] Patient Education 2022 [employer] 03/18/2024 12:27:50 DASH Eating Plan DASH Eating [...] Dairy Whole or 2% milk, cream, and ytve-fvl-wxjt. Whole or full-fat cream cheese. Whole-fat or [...] more information National Heart, Lung, and Blood Kendall: www.nhlbi.nih.gov [place] Heart Association: www.heart.org Academy of Nutrition and [...] provider. Document Revised: 10/14/2020 Document Reviewed: 10/14/2020 [employer] Patient Education 2022 [employer] 03/18/2024 12:27:49 Blood Glucose Monitoring, Adult Blood [...] have. Where to find more information The [place] Diabetes Association: www.diabetes.org The Association of Diabetes [...] provider. Document Revised: 08/09/2021 Document Reviewed: 08/09/2021 [employer] Patient Education 2022 [employer]. Follow Up Care 03/27/2023 08:59:37 With:Ellen Carlos Address: [address], [facility] [place] [place] [address]- When:Within 6 Month(s) Comments:[facility] 01-29-2024 Hospital Discharge instructions Patient [...] hard liquor (44 mL). General instructions Take zuet-amt-rzseszo and prescription medicines only as told by [...] is important. Where to find more information [place] Diabetes Association: www.diabetes.org Academy of Nutrition and Dietetics: www.eatright.org [place] Heart Association: www.heart.org Contact a health care [...] provider. Document Revised: 02/09/2021 Document Reviewed: 02/09/2021 [employer] Patient Education 2022 [employer]. 01/29/2024 09:22:38 Exercising to Lose Weight Exercising [...] your health care provider or diet and unemployment specialist (dietitian). This may include: ?Eating fewer calories. [...] provider. Document Revised: 01/07/2022 Document Reviewed: 01/07/2022 [employer] Patient Education 2022 [employer]. 01/29/2024 09:22:35 Cooking With Less Salt Cooking [...] salt. Use sodium-free baking soda when baking. [place], braise, or roast foods to add flavor with less salt. Avoid adding salt to pasta, rice, or hot cereals. Drain and rinse canned vegetables, beans, and meat before use. Avoid adding salt when cooking sweets and desserts. Cook with low-sodium ingredients. What foods are high in sodium? Vegetables Regular canned vegetables (not low-sodium or reduced-sodium). Sauerkraut, pickled vegetables, and relishes. Olives. Turks And Caicos Islander fries. Onion rings. Regular canned tomato sauce [...] Soy milk. Yogurt. Low-sodium cheeses, such as Ecuadorean, [place]ield Efrem, mozzarella, and ricotta. Sherbet or ice [...] foods you can pair it with. Herbs Fifty Six leaves Soups, meat and vegetable dishes, and spaghetti sauce. Basil Guamanian dishes, soups, pasta, and fish dishes. Cilantro Meat, poultry, and vegetable dishes. [place] powder Marinades and Maltese dishes. Chives Salad dressings and potato dishes. Cumin Maltese dishes, couscous, and meat dishes. Dill Fish dishes, sauces, and salads. Fennel Meat and vegetable dishes, breads, and cookies. Garlic (do not use garlic salt) Guamanian dishes, meat dishes, salad dressings, and sauces. Marjoram Soups, potato dishes, and meat dishes. Oregano Pizza and spaghetti sauce. Parsley Salads, soups, pasta, and meat dishes. Kari Guamanian dishes, salad dressings, soups, and red meats. [...] provider. Document Revised: 11/02/2020 Document Reviewed: 11/02/2020 [employer] Patient Education 2022 [employer]. 01/29/2024 09:22:34 BMI for Adults BMI for [...] numbers. This can be done either in [place] (U.S.) or metric measurements. Note that charts and online BMI calculators are available to help you find your BMI quickly and easily without having to do these calculations yourself. To calculate your BMI in [place] (U.S.) measurements: 1.Measure your weight in pounds [...] Centers for Disease Control and Prevention: www.cdc.gov [place] Heart Association: www.heart.org National Heart, Lung, and Blood Kendall: www.nhlbi.nih.gov Summary Body mass index (BMI) is a number that is calculated from a person's weight and height. BMI may help estimate how much of a person's weight is composed of fat. BMI can help identify those who may be at higher risk for certain medical problems. BMI can be measured using Angolan measurements or metric measurements. BMI charts are used to identify whether you are underweight, normal weight, overweight, or obese. This information is not intended to replace advice given to you by your health care provider. Make sure you discuss any questions you have with your health care provider. Document Revised: 08/03/2020 Document Reviewed: 06/10/2020 [employer] Patient Education 2022 [employer]. [facility] 12-27-2023 History of Present illness [...] the office. Patient has bilateral medial compartments hmux-fl-psdr as well as patellofemoral disease no evidence of acute fracture or bony tumor seen. XR knee 1 or 2 views left Bilateral standing PA, bilateral sunrise, and lateral of the affected knee were imaged today in the office. Patient has bilateral medial compartments ortc-mw-ajhi as well as patellofemoral disease no evidence [...] discomfort. DONAL Peck documented in this encounter [facility] 12-27-2023 Instructions DONAL Peck - 12/27/2023 8:30 [...] Tylenol for discomfort. documented in this encounter [facility] 11-23-2023 Hospital Discharge instructions Patient Education 11/23/2023 [...] powder, vinegar, hot sauces, and barbecue sauce. ?[place] fruit juices and citrus fruits, such as oranges, crystal, and limes. ?Tomato-based foods, such as red sauce, chili, salsa, and pizza with red sauce. ?Fried and fatty foods, such as donuts, citizen of [place] fries, potato chips, and high-fat dressings. ?High-fat [...] ask your health care provider. Medicines Take njfg-bov-xvkqdis and prescription medicines only as told by [...] told by your health care provider. Take pleh-xxs-keawbex and prescription medicines only as told by [...] provider. Document Revised: 05/17/2021 Document Reviewed: 05/17/2021 [employer] Patient Education 2022 [employer]. 11/23/2023 14:46:54 BMI for Adults BMI for [...] numbers. This can be done either in [place] (U.S.) or metric measurements. Note that charts and online BMI calculators are available to help you find your BMI quickly and easily without having to do these calculations yourself. To calculate your BMI in [place] (U.S.) measurements: 1.Measure your weight in pounds [...] Centers for Disease Control and Prevention: www.cdc.gov [place] Heart Association: www.heart.org National Heart, Lung, and Blood Kendall: www.nhlbi.nih.gov Summary Body mass index (BMI) is a number that is calculated from a person's weight and height. BMI may help estimate how much of a person's weight is composed of fat. BMI can help identify those who may be at higher risk for certain medical problems. BMI can be measured using Angolan measurements or metric measurements. BMI charts are used to identify whether you are underweight, normal weight, overweight, or obese. This information is not intended to replace advice given to you by your health care provider. Make sure you discuss any questions you have with your health care provider. Document Revised: 08/03/2020 Document Reviewed: 06/10/2020 [employer] Patient Education 2022 [employer]im. Follow Up Care 10/23/2023 11:17:39 With:Ellen Carlos Address: [address] [place] [address], [facility] [place] [address]- When:Within 6 Month(s) Comments:[facility] 10-22-2023 Hospital Discharge instructions Patient [...] care provider. General instructions Give your child nzlm-ahu-jyhxqsz and prescription medicines only as told by [...] provider. Document Revised: 12/20/2021 Document Reviewed: 12/20/2021 [employer] Patient Education 2022 [employer]. 10/22/2023 17:21:04 Abdominal Bloating Abdominal Bloating When [...] drinks. ?Hard candy. ?Chewing gum. Medicines Take urkl-evp-dtuieda and prescription medicines only as told by [...] provider. Document Revised: 06/13/2021 Document Reviewed: 06/13/2021 [employer] Patient Education 2022 [employer]im. Follow Up Care 10/21/2023 09:45:24 With:Daquan GRANADOS, Ellen Bonilla Address: [address] [place] [address] [place], [facility] [place] [place] [address]- When:Within 1 Month(s) Comments:f/u flatulence and GERD [facility] 09-20-2023 Evaluation note Encounter Date [...] in a timely fashion. Do not smoke. [email or web address] 09-21-2022 Evaluation note* Encounter Date Diagnosis Assessment Notes Treatment Notes Treatment Clinical Notes Jul, Obstructive sleep apnea (adult) (pediatric) (ICD-10 - G47.33) Fortunately, the patient is using and benefiting from treatment. Download was reviewed with patient, Current pressure is controlling apnea well, And we will make no changes at this time. A prescription was sent to the [facility] for new supplies throughout the year. She [...] in a timely fashion. Do not smoke. [email or web address] Other 06-27-2022 Evaluation + Plan noteExtracted from: Title:Vascular Author:Haley Wade Date:05/21 Referral to Lymphedema Clini c faxed to Marissa @ [facility] ([phone]) Verified with Marissa referral was received & [...] w/CAD if perf and 3D Paddy 04/11/22 [facility]05-[facility] Hospital Discharge instructions Patient Education 04/10/2022 [...] height. This can be done either in [place] (U.S.) or metric measurements. Note that charts are available to help you find your BMI quickly and easily without having to do these calculations yourself. To calculate your BMI in [place]olan (U.S.) measurements, your health care provider will: [...] medical problems. BMI can be measured using Angolan measurements or metric measurements. To interpret your [...] 07/23/2005 Document Revised: 10/24/2018 Document Reviewed: 09/24/2018 [employer] Patient Education 2020 [employer]. 04/10/2022 13:05:14 Dyslipidemia Dyslipidemia Dyslipidemia is an [...] quitting, ask your health care provider. Take hdxc-pzk-mcpbdyk and prescription medicines only as told by [...] 11/16/2014 Document Revised: 07/06/2019 Document Reviewed: 06/12/2019 [employer] Patient Education Bringme. Follow Up Care 03/15/2022 14:47:35 With:Rupa FINK CNP Address: [address] [place], [place] [id number]- When:Within 1 Month(s) [facility] 11-08-2021 Evaluation + Plan note Future Scheduled Tests Laboratory* HgbA1c 10/02/21 * Vitamin D 25 Hydroxy 10/02/21 * Comprehensive Metabolic Panel 10/02/21 * Lipid Panel 10/02/21 Radiology* BD Bone Density DEXA 05/22/21 * MA Mamm Screen w/CAD if perf and 3D Paddy 04/10/[address] [facility] 11-08-2021 Evaluation + Plan note Future Scheduled Tests Laboratory* HgbA1c 10/02/21 * Vitamin D 25 Hydroxy 10/02/21 * Comprehensive Metabolic Panel 10/02/21 * Lipid Panel 10/02/21 Radiology* US LE Venous Duplex Bilateral 06/06/22 * MA Mamm Screen w/CAD if perf and 3D Paddy 04/10/22 * MA Mamm Screen w/CAD if perf and 3D Paddy [facility] Appointment Date:03/27/2023 08:20:00 AM Scheduled Provider:Ellen Carlos Location:[facility] Appointment Type: Open Future Scheduled Tests Radiology* US LE Venous Duplex Bilateral 06/06/22 * MA Mamm Screen w/CAD if perf and 3D Paddy 04/10/22 * MA Mamm Screen w/CAD if perf and 3D Paddy 04/11/[address] [facility] Evaluation + Plan note Future Appointments Appointment Date:04/01/2023 08:00:00 AM Scheduled Provider: Location:[facility] Appointment Type: Medicare Wellness Subsequent Appointment Date:03/30/2024 08:00:00 AM Scheduled Provider:Ellen Carlos Location:[facility] Appointment Type: Preventative Visit Future Scheduled Tests Laboratory* HgbA1c 03/27/23 Radiology* MA Mamm Screen w/CAD if performed bilat 03/27/23 * Echo Transthoracic Complete 03/27/23 * BD Bone Density DEXA 03/27/23 * US LE Venous Duplex Bilateral 06/06/22 * MA Mamm Screen w/CAD if perf and 3D Paddy 04/10/22 * MA Mamm Screen w/CAD if perf and 3D Paddy [facility]11[facility]ments Appointment Date:01/29/2024 08:00:00 AM Scheduled Provider: Location:[facility] Appointment Type: Medicare Wellness Subsequent Appointment Date:03/30/2024 08:00:00 AM Scheduled Provider:Ellne Carlos Location:[facility] Appointment Type: Preventative Visit Future Scheduled Tests Laboratory* HgbA1c 03/27/23 Radiology* MA Mamm Screen w/CAD if performed bilat 03/27/23 * BD Bone Density DEXA 03/27/23 * US LE Venous Duplex Bilateral [facility]06[facility]22 [facility]ments Appointment Date:11/26/2023 09:00:00 AM Scheduled Provider:Ellen Carlos Location:[facility] Appointment Type: Open Appointment Date:01/29/2024 08:00:00 AM Scheduled Provider: [facility] Appointment Type:FM Medicare Wellness Subsequent Appointment Date:03/30/2024 08:00:00 AM Scheduled Provider:Ellen Carlos Location:[facility] Appointment Type:FM Preventative Visit Future Scheduled Tests Laboratory* HgbA1c 03/27/23 Radiology* MA Mamm Screen w/CAD if performed bilat 03/27/23 * BD Bone Density DEXA 03/27/[address] [facility] Rootlessaluation + Plan note Future Appointments Appointment Date:01/29/2024 08:00:00 AM Scheduled Provider: Location:[facility] Appointment Type: Medicare Wellness Subsequent Appointment Date:03/30/2024 08:00:00 AM Scheduled Provider:Ellen Carlos Location:[facility] Appointment Type: Preventative Visit Future Scheduled Tests Laboratory* HgbA1c 03/27/23 Radiology* BD Bone Density DEXA 03/27/[address] [facility] Rootlessaluation + Plan note Future Appointments Appointment Date:03/30/2024 08:00:00 AM Scheduled Provider:Ellen Carlos Location:[facility] Appointment Type:FM Preventative Visit Appointment Date:01/29/2025 09:30:00 AM Scheduled Provider: Location:[facility] Appointment Type: Medicare Wellness Subsequent Future Scheduled Tests Laboratory* HgbA1c 03/27/23 * HCV Antibody RFX to Quant PCR 01/29/24 Radiology* BD Bone Density DEXA 03/27/[address] [facility] Rootlessaluation + Plan note Future Appointments Appointment Date:03/30/2024 08:00:00 AM Scheduled Provider:[facility] Type:FM Preventative Visit Appointment Date:01/29/2025 09:30:00 AM Scheduled Provider: Location:[facility] Appointment Type: Medicare Wellness Subsequent Future Scheduled Tests Laboratory* HCV Antibody RFX to Quant PCR [facility]/29/24 [facility]ments Appointment Date:10/19/2024 08:00:00 AM Scheduled Provider:Ellen Carlos Location:[facility] Appointment Type: Open Appointment Date:01/29/2025 09:30:00 AM Scheduled Provider: Location:[facility] Appointment Type:FM Medicare Wellness Subsequent Future Scheduled Tests Laboratory* HgbA1c 04/08/24 * HCV Antibody RFX to Quant PCR 01/29/24 * Vitamin D 25 Hydroxy 04/08/24 * Comprehensive Metabolic Panel 04/08/24 * Lipid Panel 04/08/[address] [facility] Evaluation + Plan note Future Appointments Appointment Date:10/19/2024 08:00:00 AM Scheduled Provider:Ellen Carlos Location:[facility] Appointment Type: Open Appointment Date:01/29/2025 09:30:00 AM Scheduled Provider: Location:[facility] Appointment Type:FM Medicare Wellness Subsequent Future Scheduled Tests Laboratory* HgbA1c 04/08/24 * HCV Antibody RFX to Quant PCR 01/29/24 * Vitamin D 25 Hydroxy 04/08/24 * Comprehensive Metabolic Panel 04/08/24 * Lipid Panel 04/08/24 Radiology* MA Mamm Screen w/CAD if perf and 3D Paddy 04/24/24 [facility] Work Phone: Evaluation note* Diagnosis Primary osteoarthritis of knees, bilateral- Primary [facility] - [facility]orted* Type Description Date Medical History SATURNINO (obstructive sleep apnea) Medical History Hypertension Medical History Lymphedema b/l legs JoinMe@ Other Hospital course Narrative No data available for this section [facility] Hospital Discharge instructions No data available for this section [facility] No data available for this section [facility]) Referred by: Noman ALLISON, Isela Johnson [facility] Chief Complaint and Reason for Visit Chief Complaint SATURNINO 1 YEAR Advance Directives No Advanced Directives Records Found Advance Directive Response Recorded Date/ Time Advance [...] History Records FoundNo Family History Records Found Reason for Referral Specialty Diagnoses / Procedures Referred By Moisés t Referred To Contact Orthopaedic Surgery Diagnoses Primary osteoarthritis of knees, bilateral Procedures L Inj/Asp: bilateral knee Giuliano Garcia PA [address] [place] [address] Referral ID Status Reason Start Date Expiration Date V isits Requested Visits Authorized [id number] Authorized 12/27/2023 06/24/2024 1 1 Additional Source Comments Care Team (unrecognized sect ion and content) Team Status: Inactive Member Role Status Dates Rupa Fink Primary Care Provider Active Dipti Barajas NP Attending Provider Active Team Status: Active Member Role Status Dates Rupa Fink Primary Care Provider Active Book Jogger Relationship Specialty Start Date End Date Bello Davis MD [address] [place] [address] PCP - General Internal Medicine 05/07/23 Book Jogger Relationship Specialty Start Date End Date Bello Davis MD [address] [address] PCP - General Internal Medicine 05/07/23 Goals (unrecognized section and content) Goals may be documented in a n alternate section REASON FOR VISIT (unrecogniz ed section and content) Reason Comments Osteoarthritis INFORMATION SOURCE (unrecogn ized section and content) DATE CREATED AUTHOR 08/30/2022 [facility] DATE CREATED AUTHOR AUTHOR'S ORGANIZ ATION 09/28/2023 [facility] DATE CREATED AUTHOR AUTHOR'S ORGANIZ ATION 07/18/2024 [facility] DATE CREATED AUTHOR AUTHOR'S ORGANIZ ATION 08/13/2024 [facility] FOR RECORDS PERTAINING TO PATIENTS WHO ARE [...] BE BASED ON THE PRIMARY CLINICAL RECORDS. [facility]. provides no warranty or guarantee of the accuracy or completeness of information in this document.
[2024-08-14 10:03] LABS: Basophils Absolute Auto 0.1 10^3/uL (0.0-0.1); Basophils Percent Auto 0.8 % (0.2-2.0); Eosinophils Absolute Auto 0.3 10^3/uL (0.0-0.7); Eosinophils Percent Auto 3.4 % (0.9-7.0); Hematocrit 39.1 % (36.0-48.0); Hemoglobin 12.7 g/dL (12.0-16.0); Immature Granulocytes Abs Auto 0.04 10^3/uL (0.00-0.03); Immature Granulocytes Pct Auto 0.5 % (0.0-0.5); Lymphocytes Absolute Auto 1.4 10^3/uL (1.2-3.8); Lymphocytes Percent Auto 16.5 % (20.5-60.0); Mean Corpuscular HGB Conc 32.5 g/dL (29.9-35.2); Mean Corpuscular Hemoglobin 28.2 pg (26.7-34.0); Mean Corpuscular Volume 86.7 fL (81.0-99.0); Mean Platelet Volume 10.3 fL (9.5-13.5); Monocytes Absolute Auto 0.6 10^3/uL (0.3-0.8); Monocytes Percent Auto 6.7 % (1.7-12.0); Neutrophils Absolute Auto 6.3 10^3/uL (1.4-6.5); Neutrophils Percent Auto 72.1 % (43.0-75.0); Platelet Count 229 10^3/uL (150-450); Red Blood Count 4.51 10^6/uL (4.20-5.40); Red Cell Distribution Width 13.9 % (11.0-15.0); White Blood Count 8.7 10^3/uL (4.0-11.0)
[2024-08-14 10:29] LABS: Anion Gap 10.6; BUN Creatinine Ratio 16.3; Calcium 8.7 mg/dL (8.5-10.1); Carbon Dioxide 27.6 mmol/L (21.0-32.0); Chloride 107 mmol/L (98-107); Estimated GFR (African America >60 (>=60); Estimated GFR (Non-African Ame >60 (>=60); Glucose 123 mg/dL (74-106); Potassium 4.2 mmol/L (3.5-5.1); Sodium 141 mmol/L (136-145)
== END 2024-08-14 09:31 | disposition home or self-care (01) ==
LOC: RAD 09:31
PROVIDERS: PCP Nurse Practitioner Family; Visit Provider Podiatrist Foot & Ankle Surgery
DX: Z01.810 Encounter for preprocedural cardiovascular examination (principal); Z01.812 Encounter for preprocedural laboratory examination; Z01.818 Encounter for other preprocedural examination
CPT/HCPCS: 36415; 71046; 80048; 85025; 93005

== ENCOUNTER 2024-10-02 08:26 | Outpatient (OUT) | payer MEDICARE, OTHER, SELFPAY ==
--- NOTE | 2024-10-02 08:28 | MM_ITS ---
Patient Name: JOSE DAI MR#: [id number] : 1950 Exam Date: 10/02/2024 Ordering Doctor: Ellen Butt RADIOLOGY REPORT PROCEDURE: MM TOMOSYNTHESIS SCREENING BI COMPARISON: MM TOMOSYNTHESIS SCREENING BI, 08/22/2023. MG MAMM SCREEN 3D BRIANNE CAD, 08/09/2022. MG MAMM SCREEN 3D BRIANNE CAD, 05/25/2021. MG MAMM BRIANNE SCRN W CAD DIG, 11/19/2013. INDICATIONS: Screening Calculator Name NCI Breast Cancer Risk Assessment Tool 5 Year Breast Cancer Risk 1.40% Lifetime Breast Cancer Risk 3.20% Personal Breast Cancer No Personal Ovarian Cancer No Treatments None Family Cancers None LOCATION: [facility] BREAST COMPOSITION: There are scattered areas of fibroglandular density. FINDINGS: DIAGNOSTIC CATEGORY 2--BENIGN FINDING: RIGHT BREAST: No significant suspicious finding. Scattered benign-appearing nodules are present. No significant change has occurred. LEFT BREAST: No significant suspicious finding. Scattered benign-appearing nodules are present. No significant change has occurred. RECOMMENDATIONS: ROUTINE MAMMOGRAM AND CLINICAL EVALUATION IN 12 MONTHS. PLEASE NOTE: A NORMAL MAMMOGRAM DOES NOT EXCLUDE THE POSSIBILITY OF BREAST CANCER. A CLINICALLY SUSPICIOUS PALPABLE LUMP SHOULD BE BIOPSIED. Dictated by: Trent Bryan M.D. on 10/02/2024 at 11:59 Approved by: Trent Bryan M.D. on 10/02/2024 at 12:02
--- OUTSIDE RECORDS SUMMARY | 2024-10-02 08:44 | XMS_ITS | CCD ---
Author Organization [facility] Care Team Providers Care Director Of Revenue Cycle Management Name Role Phone Rupa FINK Primary Care Physician Rupa Fink Primary Care Provider NOEMI Barajas Attending Provider Karl Dipti Unavailable RUPA FINK Primary Care [...] Consulting Unavailable RUPA FINK Primary Care Unavailable ISELA TINEO Admitting Unavailable ISELA TINEO Attending Unavailable Ellen Butt Primary Care Physician Dipti Barajas Attending Unavailable Karina Barajasgy Admitting Unavailable Ellen Butt Primary Care UnavailBello Holman MD Primary Care Provider Ellen Butt NP Unavailable Ellen Butt Referring Unavailab le Isela Tineo Admitting Unavailable Isela Tineo Attending Unavailable Ellen Butt Admitting Unavailab Ellen Bentley Attending Unavailab Danish Purvis Admitting Unavailable Danish Carballo Attending Unavailable Tayler Vega Attending Unavailable Aden Chester Attending Unavailable Tayler Vega Attending Unavailable Ellen Butt Attending Unavailab le Ellen Butt Attending Unavailab le Missler, Ellen Bonilla Attending Unavailab le Missler, Ellen Bonilla Attending Unavailab le Missler, Ellen Bonilla Attending Unavailab le Missler, Ellen Bonilla Attending Unavailab le BROWN, FRANKIE A Attending Unavailable HILLS, GIULIANO Peters Referring Unavailable HILLS, GIULIANO Peters Attending Unavailable BROWN, FRANKIE A Attending Unavailable HILLS, GIULIANO Fran Attending Unavailable BROWN, FRANKIE A Attending Unavailable BROWN, FRANKIE A Attending Unavailable BROWN, FRANKIE A Attending Unavailable BROWN, FRANKIE A Attending Unavailable BROWN, FRANKIE A Attending Unavailable BROWN, FRANKIE A Attending Unavailable BROWN, FRANKIE A Attending Unavailable DOLCE, DANISH D Attending Unavailable DOLCE, DANISH Fran Attending Unavailable DOLCE, DANISH D Attending Unavailable DOLCE, DANISH D Attending Unavailable DOLCE, DANISH D Attending Unavailable BROWN, FRANKIE A Attending Unavailable Allergies Allergy Classification Reported Allergen(s) Allergy Type Date of Onset Reaction(s) Facility (20 sources) Alendronate; Translations: [alendronate] Drug Allergy 10-02-2018 Weal (disorder), Cutaneous eruption (morphologic abnormality), Hives, Rash [facility] (2 sources) Alendronate; Translations: [alendronate sodium] Drug Allergy 10-02-2018 Redness of Skin [facility] Medications Current Medications Medication Drug Class(es) Dates [...] EVERY 4-6 HOURS October 02, 2018 1:00am acetaminophen 325 mg / oxyCODONE hydrochloride 5 mg oral tablet (4 sources) Opioid Agonist Start: 08-27-2024 End: 09-01-2024 take 1 tablet by mouth every six hours for pain oxyCODONE-acetami nophen (Percocet) 5-325 MG tablet Indications: Pain Take 1 tablet by mouth every 6 (six) hours if needed for severe pain for up to 5 days 20 tablet 08/27/2024 09/01/2024 Active amoxicillin 875 mg / clavulanate 125 mg oral tablet (6 sources) Penicillin-class Antibacterial Start: 09-01-2024 End: 09-11-2024 take 1 tablet by mouth in the morning, then take 1 tablet by mouth after mealtime, then take 1 tablet by mouth twice daily amoxicillin-clavu lanate (Augmentin) 875-125 MG tablet Indications: Diabetic Foot Infection Take 1 tablet (875 mg) by mouth in the morning and 1 tablet (875 mg) in the evening. Take after meals. Do all this for 10 days. Take 1 pill p.o. b.I.d. for 10 days. 20 tablet 09/01/2024 09/11/2024 Active ascorbic acid 60 mg / cholecalciferol 0.01 mg / folic acid 0.3 mg / niacin 13.5 mg / riboflavin 1.2 mg / sodium fluoride 0.55 mg / thiamine 1.05 mg / vitamin a 0.75 mg / vitamin b12 0.0045 mg / vitamin b6 1.05 mg / vitamin e 6.75 mg chewable tablet (17 sources) Nicotinic Acid, Vitamin A, Vitamin B12, Vitamin D, Vitamin C Pediatric Multivitamins-Fl (MultiVitamin + Fluoride) 0.25 MG chewable tablet Multivitamin Active aspirin 325 mg delayed release oral tablet (13 sources) Platelet Aggregation Inhibitor, Nonsteroidal Anti-inflammatory Drug Start: 11-14-2020 take 1 tablet by mouth once daily as needed for pain aspirin 325 mg Oral EC Tab 325 mg = 1 tab(s), Oral, Daily, PRN as needed for pain Start Date: 11/14/20 Status: Ordered Start: 11-14-2020 take 1 tablet by leanna once daily as needed for pain aspirin 325 mg Oral EC Tab 325 mg = 1 tab(s), Oral, Daily, PRN as needed for pain Start Date: 11/14/20 Status: Ordered atorvastatin 10 mg oral tablet (20 sources) HMG-CoA Reductase Inhibitor Start: 03-12-2022 End: 03-21-2024 take 1 tablet by mouth once daily atorvastatin 10 mg Tab 10 mg = 1 tab(s), Oral, Daily, X 90 day(s), # 90 tab(s), Refills(s) 3, Pharmacy: [facility]/pharmacy #[id number], 166, cm, 03/27/23 8:21:00 EDT, Height/Length Dosing, 116.1, kg, 03/27/23 8:21:00 EDT, Weight Dosing Start Date: 03/27/23 Stop Date: 03/21/24 Status: Ordered Atorvastatin Sonny cium Active bismuth subsalicylate (4 sources) Bismuth Start: 04-13-2019 Maalox Total S tomach Relief mg, Oral, QID, [id number] 5ML (Alum & Mag Hydroxide-Simeth) 2-4 tsps bid daily prn, Refills(s) 0 Start Date: 04/13/19 Status: Ordered Calcium (2 sources) Phosphate Binder, Calcium Calcium Active Calcium Carb-Cholecalciferol (CALCIUM + VITAMIN D3 PO) (17 sources) Calcium Carb-Cho lecalciferol (CALCIUM + VITAMIN D3 PO) Calcium + Vitamin D3 Active Calcium Carb-Cho lecalciferol (CALCIUM + VITAMIN D3 PO) Calcium + Vitamin D3 0 Active calcium carbonate 1500 mg / cholecalciferol 200 unt oral capsule (20 sources) Vitamin D Start: 10-02-2018 take 1 capsule by mouth once daily [...] MG-MCG chewable tablet Calcium + Vitamin D3 Active clindamycin 300 mg oral capsule (4 sources) Lincosamide Antibacterial Start: 09-04-2024 End: 09-14-2024 take 1 capsule by mouth in the morning, then take 1 capsule by mouth in the evening, then take 1 capsule by mouth at bedtime, then take 1 capsule by mouth three times daily clindamycin (Cleocin) 300 MG capsule Indications: Diabetic Foot Infection Take 1 capsule (300 mg) by mouth in the morning and 1 capsule (300 mg) in the evening and 1 capsule (300 mg) before bedtime. Do all this for 10 days. TAKE 1 PILL P.O. T.I.D. FOR 10 DAYS. 30 capsule 09/04/2024 09/14/2024 Active dexamethasone 1 mg/ml / tobramycin 3 mg/ml ophthalmic suspension (17 sources) Aminoglycoside Antibacterial, Corticosteroid Start: 08-08-2023 take 1 drop(s) into the eye(s) every three hours, then take 1 drop(s) into the eye(s) four times daily tobramycin-dexAME THasone (Tobradex) ophthalmic suspension INSTILL 1 DROP INTO RIGHT EYE EVERY 3 HOURS FOR 1 DAYS THEN 1 DROP 4 TIMES A DAY 08/08/2023 Active famotidine 40 mg oral tablet (20 sources) Histamine-2 Receptor Antagonist Start: 10-23-2023 famotidine (Pepcid) 40 MG tablet Take 40 mg by mouth 10/23/2023 Active Fish Oils (20 sources) Start: 10-31-2020 take 1 capsule by mouth once daily Fish Oil 1200 mg oral capsule 1,200 mg = 1 cap(s), Oral, Daily, Prophylaxis Start Date: 10/31/20 Status: Ordered omega-3 (FISH OI L) 300 MG capsule Fish Oil Active omega-3 (FISH OI L) 300 MG capsule Fish Oil 0 Active Fish Oil Active Glucosamine (20 sources) Start: 03-27-2023 Glucosamine HC l (GLUCOSAMINE PO) Refills(s) 0 03/27/2023 Active Start: 03-27-2023 Glucosamine HC l (GLUCOSAMINE PO) Refills(s) 0 0 03/27/2023 Active Start: 03-27-2023 glucosamine Re fills(s) 0 Start Date: 03/27/23 Status: Ordered Glucosamine 500 MG capsule Glucosamine Active Glucosamine Chond MSM Formul a (2 sources) Glucosamine Volodymyr d MSM Formula Active hydrOXYzine hydrochloride 10 mg oral tablet (1 source) Antihistamine Start: 08-24-2024 take 2 tablets by mouth four times daily as needed hydrOXYzine hydrochloride 10 mg Tab 20 mg = 2 tab(s), Oral, QID, PRN for itching, # 80 tab(s), Refills(s) 0, Pharmacy: [facility]/pharmacy #[id number], 162.6, cm, 08/24/24 14:50:00 EDT, Height/Length Dosing, 113.8, kg, 08/24/24 14:50:00 EDT, Weight Dosing Start Date: 08/24/24 Status: Ordered ibuprofen 200 mg oral tablet (1 source) Nonsteroidal Anti-inflammatory Drug Start: 10-02-2018 Ibuprofen Active 2 TAB PO every 6 to 8 hours October 02, 2018 1:00am losartan potassium 25 mg oral tablet (20 sources) Angiotensin 2 Receptor Katia Start: 10-02-2018 End: 03-21-2024 losartan (Cozaar) 25 MG tablet 1 (one) time each day at the same time. 03/27/2023 Active Losartan Potassi um Active methylPREDNISolone (14 sources) Corticosteroid Start: 04-30-2024 methylPREDNISo lone (Medrol Dospak) 4 MG tablets Indications: Right Achilles tendinitis Follow schedule on MEDROL PACK package instructions to be used as directed 21 tablet 04/30/2024 Active Multiple Vitamin (MULTIVITAMIN ADULT PO) (17 sources) Multiple Vitamin (MULTIVITAMIN ADULT PO) Multivitamin Active Multiple Vitamin (MULTIVITAMIN ADULT PO) Multivitamin 0 Active Eyudjgvr-Wwo-Pvimh Acid-Vit K (Multi For Her 50 Plus) 400-80 mcg Capsule (1 source) Start: 10-02-2018 take 50-400 capsules by mouth once daily Xftoinxc-Zod-Ielyo Acid-Vit K (Multi For Her 50 Plus) 400-80 mcg Capsule Active 1 CAP PO Daily October 02, 2018 1:00am Multivitamin, Therapeutic w/ Minerals (13 sources) Start: 10-17-2010 take 1 tablet by mouth once daily Multivitamin, Therapeutic w/ Minerals 1 tab, Oral, Daily, Refill(s) 0 Start Date: 10/17/10 Status: Ordered omeprazole 40 mg delayed release oral capsule (20 sources) Proton Pump Inhibitor Start: 02-25-2023 End: 06-06-2024 omeprazole (PriLOSEC) [address] capsule Take 40 mg by mouth. 03/27/2023 Active Start: 04-02-2022 take 1 capsule by [facility] once daily omeprazole 40 mg Cap-DR 40 mg = 1 cap(s), Oral, Daily, # 90 cap(s), Refills(s) 3, Pharmacy: [facility]/pharmacy #[id number], 165, cm, 10/02/21 8:58:00 EST, Height/Length [...] Daily, # 90 cap(s), Refills(s) 3, Pharmacy: [facility]/pharmacy #[id number], 165, cm, 10/02/21 8:58:00 EST, Height/Length [...] Episodic/Chronic Aortic; peripheral; and visceral artery aneurysms (13 sources) Aneurysm of splenic artery 10-02-2021 Chronic Cataract (17 sources) 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; Translations: [Other secondary cataract, right eye] Onset: 3 05-07-2023 Chronic Congestive heart failure; nonhypertensive (8 sources) Diastolic dysfunction 04-19-2023 Chronic Diabetes mellitus without complication (20 sources) Prediabetes; Translations: [Prediabetes] Onset: 2 Episodic Disorders of lipid metabolism (17 sources) Hyperlipidemia; Translations: [Hyperlipidemia, unspecified] Onset: 2 Chronic Esophageal disorders (9 sources) Gastroesophageal reflux disease without esophagitis; Translations: [Gastro-esophageal reflux disease without esophagitis] Onset: 3 Chronic Essential hypertension (20 sources) Essential hypertension; Translations: [Essential (primary) hypertension] Onset: 1 Chronic Heart valve disorders (9 sources) Systolic murmur 03-27-2023 Episodic Hypertension with complications and secondary hypertension (4 sources) Hypertensive heart disease with heart failure; Translations: [HTN HEART DISEASE W/HEART FAIL] Onset: 2 Chronic Immunizations and screening for infectious disease (1 source) Viral screening status; Translations: [Encounter for screening for other viral diseases] Onset: 4 Episodic Mycoses (2 sources) Pain in toe; Translations: [Tinea unguium] 09-18-2024 Episodic Nutritional deficiencies (16 sources) Vitamin D deficiency; Translations: [Vitamin D deficiency, unspecified] Onset: 2 Chronic Osteoarthritis (20 sources) Osteoarthritis; Translations: [Unspecified osteoarthritis, unspecified site] Onset: 2 Chronic Other acquired deformities (2 sources) Contracture of joint of left ankle; Translations: [Contracture, left ankle] 09-09-2024 Chronic Other aftercare (1 source) Long-term current use of drug therapy; Translations: [Other watermaster (current) drug therapy] Onset: 4 Episodic Other and ill-defined heart disease (1 source) Heart disease; Translations: [Other ill-defined heart diseases] Onset: 3 Chronic Other bone disease and musculoskeletal deformities (13 sources) Osteopenia 04-13-2019 Episodic Other connective tissue disease (2 sources) Right achilles tendonitis; Translations: [Achilles tendinitis, right leg] 09-09-2024 Episodic Other diseases of veins and lymphatics (10 sources) Lymphedema; Translations: [Lymphedema, not elsewhere classified] Onset: 2 Chronic Other diseases of veins and lymphatics (4 sources) Lymphedema, not elsewhere classified; Translations: [LYMPHEDEMA NOT ELSEWHERE CLASSIFIED] Onset: 2 Chronic Other diseases of veins and lymphatics (2 sources) Vascular insufficiency; Translations: [Venous insufficiency (chronic) (peripheral)] 09-18-2024 Episodic Other ear and sense organ disorders (1 source) Impacted cerumen in left ear; Translations: [Impacted cerumen, left ear] Onset: 4 Episodic Other ear and sense organ disorders (3 sources) Impacted cerumen 04-08-2024 Episodic Other gastrointestinal disorders (5 sources) Passing flatus; Translations: [Flatulence] Onset: 3 Episodic Other non-traumatic joint disorders (2 sources) Pain in left knee; Translations: [Pain of joint of knee] Onset: 2 Episodic Other nutritional; endocrine; and metabolic disorders (12 sources) Morbid obesity; Translations: [Morbid (severe) obesity due to excess calories] Onset: 2 Chronic Other nutritional; endocrine; and metabolic disorders (19 sources) Body mass index 40+ - severely [...] unspecified] Onset: 2 Chronic Residual codes; unclassified (18 sources) Obstructive sleep apnea syndrome; Translations: [Obstructive [...] sources) Bilateral lower limb edema 10-02-2021 Episodic Skin and subcutaneous tissue infections (1 source) Cellulitis of lower limb 07-17-2024 Episodic Spondylosis; intervertebral disc disorders; other back problems (13 sources) Lumbar radiculopathy 04-13-2019 Episodic Sprains and strains (8 sources) Rupture of right Achilles tendon; Translations: [Strain of right Achilles tendon, initial encounter] 08-27-2024 Episodic Unclassified (4 sources) Pain of knee region 04-10-2022 Unclassified (15 sources) Patient encounter status 04-06-2020 Unclassified (9 sources) Peripheral arterial disease 03-26-2023 Comment on above: noted in 06/21/2022 Vascular Consult Note. added per outpatient CDI policy. Past or Other Problems Problem Classification Problem Date Documented Da te Episodic/Chronic Other eye disorders (17 sources) Scar of cornea of right eye; Translations: [Unspecified corneal scar and opacity] Onset: 05-07-2023 05-07-2023 Episodic Results Test Name Value Interpretation Reference Range [facility] Surgical Pathology Reporton 09-01-2024 Surgical Pathology Report [address] [id number]- Surgical Pathology Report Collected Date/Time: 08/27/2024 13:50 EDT Pathologist: Norberto ALLISON PhD, Nancy Bond Received Date/Time: 08/27/2024 18:00 EDT Brenna COBURN, Danish Carballo DPM, Danish Reynolds Surgical Pathology Report - 09/01/2024 12:40 EDT - Auth (Verified) Final Diagnosis RIGHT ACHILLES DEGENERATIVE TENDON, EXCISION: - FIBROUS TENDINOUS TISSUE WITH REACTIVE CHANGES. Comment: No acute inflammation, necrosis or cytologic atypia. (Electronic Signature) Nancy Thornton MD PhD 09/01/2024 12:40 Clinical Information Right Achilles tendon tear Pre-Op Diagnosis: Right Achilles tendon tear Procedure: _ Post-Op Diagnosis: Right Achilles tendon tear Specimen(s) Received Right Achilles degenerative tendon Gross Description Received in formalin labeled with patient name, number, and right Achilles degenerative tendon are irregular and elongated fragments of nevarez/pink firm rubbery tissue segments measuring in aggregate 3.7 x 3 x 0.8 cm. Fragments are serially sectioned and a parts representative portion is submitted in two cassettes. (DC) DC:[facility] Microscopic Description Microscopic examination performed unless gross only specified. Normal [facility] Comment on above: Performed By: #### [id number] #### [facility] [address] [place] [address] Family Medicine Office/Clini c Noteon 08-24-2024 Family Medicine Office/Clinic Note Family Medicine Office/Clinic Note Chief Complaint The patient presents with itching legs related to lymphedema and is scheduled for foot surgery. HPI Staff Sandee is a 74 year old female presenting with itchy rash scheduled for surgery 08/27 for Achilles rupture repair w/ Dr Carballo Dxed with lymphedema couple years ago recent visit with Dr Coffey and sent to lymphedema clinic and the wraps/sleeves they are using gave her issues, her legs itch like mad, there on Saturday and got them wrapped from under knees and down so she can drive. she is just digging at her legs, they are off and she can't even stand a sheet over top them, waking her at night. Having surgery and things are a mess. Did call lymphedema clinic before making appt here and she suggested see pcp for it History of Present Illness The patient is a 74-year-old female presenting with itching associated with lymphedema and impending foot surgery. The itching has been attributed to lymphedema in her legs, noted for causing her skin to become dry and taut, which leads to irritation and itching. This issue has been ongoing, with the patient reporting the sensation worsens due to the edema's effects. She has been fitted for compression sleeves to manage her lymphedema, although they are not yet in use and are expected to be available in approximately three weeks. Previously, she had some difficulty tolerating traditional wrapping techniques due to itching and discomfort. In the past, she completed prescribed sessions for lymphedema management, including wrapping, though she was unable to manage the wrapped dressings for extended periods due to discomfort and itching. Compression sleeves have been suggested as an alternative management approach, for which she anticipates improvement. Additionally, the patient notes a previous episode of cellulitis in the left leg, which set back her lymphedema treatment but has since resolved. The patient is also scheduled to undergo foot surgery this to address an issue with her Achilles tendon. She has been medically cleared for this surgery despite the presence of a flow murmur, which has been characterized as intermittent in the past. Physical Exam Vitals & Measurements T: 36.6 ?C(Temporal Artery) HR: 86(Peripheral) RR: 16 BP: 132/84 SpO2: 97% HT: 64 in HT: 162.6 cm WT: 113.8 kg WT: 250.36 lb BMI: 43.04 General: alert, no acute distress ENMT: oral mucosa dry Cardiovascular: Regular rate and rhythm, flow murmur present, normal peripheral perfusion Respiratory: Lungs clear to auscultation, respirations non labored Extremities: trace pitting edema, lymphedema present, no deformity, no trauma Neurological: oriented x 4, level of consciousness appropriate for age, CN II-XII intact, motor strength equal & normal bilaterally, speech normal Abdomen: Soft, Non-tender, Non-distended, + Bowel sounds Assessment/Plan 1. Pruritus, unspecified (L29.9) The patient is currently dealing with lymphedema in her legs, which has led to skin irritation and itching. Compression sleeves have been recommended and are pending delivery. Hydroxyzine has been prescribed to alleviate itching, with consideration given to alternative treatments should itchy symptoms persist. Ordered: hydrOXYzine, 20 mg = 2 tab(s), Oral, QID, PRN for itching, # 80 tab(s), Refills(s) 0, Pharmacy: [facility] #[id number], 162.6, cm, 08/24/24 14:50:00 EDT, Height/Length Dosing, 113.8, kg, 08/24/24 14:50:00 EDT, Weight Dosing 2. Heart murmur, systolic (R01.1: Cardiac murmur, unspecified) Known. Ordered: hydrOXYzine, 20 mg = 2 tab(s), Oral, QID, PRN for itching, # 80 tab(s), Refills(s) 0, Pharmacy: [facility] #[id number], 162.6, cm, 08/24/24 14:50:00 EDT, Height/Length Dosing, 113.8, kg, 08/24/24 14:50:00 EDT, Weight Dosing 3. BMI 40.0-44.9, adult (Z68.41: Body mass index [BMI] 40.0-44.9, adult) BMI education added. Ordered: hydrOXYzine, 20 mg = 2 tab(s), Oral, QID, PRN for itching, # 80 tab(s), Refills(s) 0, Pharmacy: [facility]/pharmacy #[id number], 162.6, cm, 08/24/24 14:50:00 EDT, Height/Length Dosing, 113.8, kg, 08/24/24 14:50:00 EDT, Weight Dosing 4. Class 3 severe obesity due to excess calories with body mass index (BMI) of 40.0 to 44.9 in adult (E66.01: Morbid (severe) obesity due to excess calories) The patient's BMI falls within the range of 40.0-44.9, classifying her as having severe obesity. Management includes continued monitoring of weight and associated comorbidities. Further dietary consultations may be considered to address caloric intake, though specific dietary plans were not discussed in this visit. Ordered: hydrOXYzine, 20 mg = 2 tab(s), Oral, QID, PRN for itching, # 80 tab(s), Refills(s) 0, Pharmacy: [facility] #[id number], 162.6, cm, 08/24/24 14:50:00 EDT, Height/Length Dosing, 113.8, kg, 08/24/24 14:50:00 EDT, Weight Dosing 5. Nonsmoker (Z78.9: Other specified health status) Please continue to not smoke. Ordered: hydrOXYzine, 20 mg = 2 tab(s), Oral, QID, PRN fo (more content not included)... Normal [facility] Comment on above: Result Comment: Elec tronically Signed By: Henrik ALLISON, Aden Galloway.br\Date and Time Signed: 08/24/24 15:08 EDT Ambulatory Visit Summaryon 0 08-18-2024 Ambulatory Visit Summary Ambulatory Visit Summary SANDEE DAI :1950 Visit Date:08/18/2024 Ambulatory Visit Instructions Your Diagnosis Pre-op exam Non-smoker BMI 40.0-44.9, adult Class 2 severe obesity due to excess calories with serious comorbidity and body mass index (BMI) of 35.0 to 35.9 in adult Your Care Team Attending Physician - Tayler Muller Primary Care Physician - Ellen Carlos This [...] lens (11/01/2020), Colonoscopy (06/11/2018). Discharge Vitals Temperature (Temporal Artery) 36.8 ?C Heart Rate (Peripheral) 70 Respiratory Rate 20 Blood Pressure 128/88 Height 162.6 cm Height 64 in Weight 112.65 kg Weight 247.83 lb BMI 42.61 What to do next Scheduled Follow-Up Appointments Saturday 8:00 AM EST With: Ellen Carlos Where: [facility] [address] [place] [address]- Saturday 9:30 AM EST With: Where: [facility] [address] [place] [address]- Medications What How Much When Why Instructions Unchanged aspirin (aspirin 325 mg Oral EC Tab) 1 Tablets By Mouth Every day as needed for as needed for pain Unchanged calcium-vitamin D (calcium (as carbonate)-vitamin D 500 mg-200 intl units oral tablet) 1 Tablets By Mouth Every day Unchanged famotidine (famotidine 40 mg Tab) 1 Tablets By Mouth Every day GERD (gastroesophageal reflux disease) Unchanged glucosamine Unchanged losartan (losartan 25 mg Tab) 1 Tablets By Mouth Every day Unchanged multivitamin with minerals (Multivitamin, Therapeutic w/ Minerals) 1 tab By Mouth Every day Unchanged omega-3 polyunsaturated fatty acids (Fish Oil 1200 mg oral capsule) 1 Capsules By Mouth Every day Unchanged omeprazole (omeprazole 40 mg Cap-DR) 1 Capsules By Mouth Every day Allergies alendronate (Hives, Rash) Problems Ongoing - Any problem that you are currently receiving treatment for. Benign hypertension BMI 40.0-44.9, adult Cellulitis of leg Diastolic dysfunction without heart failure GERD (gastroesophageal reflux disease) Heart murmur, systolic Hyperlipidemia Left ear impacted cerumen Lumbar radiculopathy Lymphedema Morbid obesity Obstructive sleep apnea Osteopenia Peripheral arterial disease Pre-op exam Prediabetes Routine adult health maintenance Vitamin D deficiency Historical - Any problem that you are no longer receiving treatment for. Aneurysm of splenic artery Osteoarthritis Patient Survey You may receive a survey via text or e-mail asking about your office visit. Please share your experience with us by completing your survey. We appreciate your feedback and thank you for choosing us for your care. Normal [facility] Family Medicine Office/Clini c Noteon 08-18-2024 Family Medicine Office/Clinic Note Family Medicine Office/Clinic Note HPI Staff Sandee is a 74 year old female presenting with clearance surgery Daquan patient Date of surgery: 08/27/24 Surgeon: Dr. Carballo Hospital: [facility] Type of Surgery: right Achilles rupture repair Pre Surgery [facility] 08/14/24- Done Labs, EKG, Chest Xray History of Present Illness pt presents today for surgical clearance. scheduled for next by Dr. Carballo Review of Systems PHQ Score Initial Depression Screen Score: 0 SCORE Physical Exam Vitals & Measurements T: 36.8 ?C(Temporal Artery) HR: 70(Peripheral) RR: 20 BP: 128/88 SpO2: 97% HT: 64 in HT: 162.6 cm WT: 112.65 kg WT: 247.83 lb BMI: 42.61 General: alert, no acute distress ENMT: oral mucosa moist, no pharyngeal erythema or exudate Cardiovascular: regular rate and rhythm, normal peripheral perfusion Respiratory: Lungs CTA, respirations non labored Extremities: no deformity, no trauma Neurological: oriented x 4, LOC appropriate for age, CN II-XII intact, motor strength equal & normal bilaterally, speech normal both legs wrapped by lymphedema clinic Assessment/Plan 1. Pre-op exam (Z01.818: Encounter for other preprocedural examination) pt presents today for pre op exam. had all testing done at [facility]. all tests were reviewed. physical exam WNL. pt is doing well. denies needs at this time. will send letter to Dr. Carballo. 2. Non-smoker (Z78.9: Other specified health status) continue not smoking 3. BMI 40.0-44.9, adult (Z68.41: Body mass index [BMI] 40.0-44.9, adult) BMI education given 4. Class 2 severe obesity due to excess calories with serious comorbidity and body mass index (BMI) of 35.0 to 35.9 in adult (E66.01: Morbid (severe) obesity due to excess calories) see above Follow-up No qualifying data available Problem List/Past Medical History Ongoing Benign hypertension BMI 40.0-44.9, adult Cellulitis of leg Diastolic dysfunction without heart failure GERD (gastroesophageal reflux disease) Heart murmur, systolic Hyperlipidemia Left ear impacted cerumen Lumbar radiculopathy Lymphedema Morbid obesity Obstructive sleep apnea Osteopenia Peripheral arterial disease Pre-op exam Prediabetes Routine adult health maintenance Vitamin D [...] in lifetime) Tobacco Use:. Never Smokeless Tobacco Use:. Cigarettes, 08/18/2024 Family History CAD (coronary artery disease): Father. Hypertension: Mother. Immunizations Vaccine Date Status Comments influenza virus vaccine, inactivated 08/01/2023 Recorded SARS-CoV-2 (COVID-19) mRNAMUL.ORD![id number] 09/27/2022 Recorded 2023-10-22: TPV70 influenza virus vaccine, inactivated 09/13/2022 Recorded SARS-CoV-2 (COVID-19) mRNA-1273 vaccine 06/28/2022 Recorded 2023-10-22: TPV70 SARS-CoV-2 (COVID-19) mRNA-1273 vaccine 10/05/2021 Recorded 2023-10-22: TPV70 influenza virus vaccine, inactivated 09/06/2021 Recorded influenza virus vaccine, inactivated 08/31/2021 Recorded SARS-CoV-2 (COVID-19) mRNA-1273 vaccine 02/15/2021 Recorded 2nd Vaccime SARS-CoV-2 (COVID-19) mRNA-1273 vaccine 01/18/2021 Recorded 1st Vaccine zoster vaccine live 12/09/2020 Recorded zoster vaccine live 09/08/2020 Recorded influenza virus vaccine, inactivated 09/08/2020 Recorded influenza virus vaccine, inactivated 07/23/2019 Recorded pneumococcal 23-valent vaccine 12/02/2018 Recorded influenza virus vaccine, inactivated 09/18/2018 Recorded pneumococcal 13-valent vaccine 09/27/2016 Recorded pneumococcal 23-valent vaccine 09/20/2016 Recorded influenza virus vaccine, inactivated 10/11/2015 Recorded influenza virus vaccine, inactivated 10/05/2013 Recorded pneumococcal 23-valent vaccine 03/25/2013 Recorded influenza virus vaccine, inactivated 12/03/2012 Recorded zoster vaccine live 11/05/2012 Recorded Normal [facility] Comment on above: Result Comment: Elec tronically Signed By: Tayler Muller\.br\Date and Time Signed: 08/18/24 15:26 EDT Provider Letteron 08-18-2024 Provider Letter Provider Letter [address] [place], [place] [id number] August 18, 2024 SANDEE DAI [address] [place] [id number] : [address] Carballo, The above patient has been evaluated at your request for preoperative clearance. After assessment of available pertinent labs and diagnostic tests, I feel this patient is medically optimized for surgery. Final discretion of whether the patient is cleared for surgery remains up to the surgeon/anesthesiol ogist. Thank you, BURT MoralesP-C Nithya [facility] Family Medicine Office/Clini c Noteon 07-17-2024 Family Medicine Office/Clinic Note Family Medicine Office/Clinic Note HPI Staff Sandee is a 74 year old female presenting [...] for 10 day(s), 20 tab(s), Refill(s) 0, [facility]/pharmacy #[id number], 162.6, cm, 07/17/24 13:02:00 EDT, Height/Length [...] of intrao (more content not included)... Normal [facility] Comment on above: Result Comment: Elec tronically Signed By: Tayler Muller\.br\Date and Time Signed: 07/17/24 13:33 EDT Coding Summary.on 05-13-2024 Coding Summary. KDDFVqaj64WIl3hUr+P GhlYWQ+QV4JKISqS88k rVEbrU0sD6PTEAaKSqm gQVBQTElOSyIgbmFtZT 1kaXNjZXJu IC8+IK4lZAVuLhxogME tc5C7uYD2A69tuw6dGT zjzKG9OKZxHaBkvmovh 6kfoSq9AQvsGyyhOkHi JEVtkF06XMX9pI62Es6 0xPZsvQRfp9mncWu2Zo OqRTByLDZ9xWsvCVkkr 0IoUIAxJ13dxIJcr7H2 IGNvbGxhcHNlOyBlbXB 9hU9iIYtkavogm2dics agUmq8ok19wTVmv3N5q KJ6B6VyrrV1SEVzbRNs DgndfZLImI2kfgpuz4c entnqRqMnQSHvHOl6VH q8MJLwvAejAzQcVG48Z XJ7POPxxqEgO8KnKXQc oAjiWhH1o6F8Ci0IR8C JIafrD7NQEBQFQWestP Q+YY70ud90J5YrDekpM te3XGHoQVJ7zDR8eV4u TZIoZNpcm8S0qBH0D5Q tlbXsff4ql8caWAPdPJ vsG12ipOAgz3X2YARby WD8JNPjgXstIcLzjB89 Oyc+JULxzQagl5QiCec je0exg6iwfSt7KnwbLI OuumHchDsmZMI2w7NnR k8lFVUlbHD2cYX4zG5b MeHxIsJ4JRnmL868ZdQ qhKGlZbklR66vP4LesG A+ROEuThh7YLIdlGyaU U1wI7GdVYKbtzhzoIQi jZyzKL6wAGLsjzquPMP kdF6rQOJxR3q3BfFaHh G1DXlpM6BfHBFhvynxL x75hJ4fCyVeSdJ2DVtj J3EyxjU8VSRfbQLzHNk yPQG9B47ux3N8BVMfQW LqOBL4wOI3oQ8ihHpvx jogbGVmdDsgdmVydGlj XIgxAXxhT669IYDogKt nPkNvZGluZyBEYXRlOi AgMDYvMTkvMjAyNDwvd GQ+DCFhNZB3lUecWMDw bXWqDLclMs6ehXdimEn iAF3bLXHiofswTAKllB 2kOMXglKUjoXnbJG9xR DAznunfo027LlJnTEN5 RWPpkOUxO9SnoI3lIsU yQOZjEIRlY9OhfBRvPN ocX279USgjHtL0DQGca aAcL1HpDGLklIgcIcJ7 c4U6Hd5As7EzbywoJ5P reTNxZtZiYswvHTt7U4 RkPjwvdHI+NU20KLKrT I37YLc6WHO9aYnaMCvx GXQhA7NprL7kZuFvHLA kZGRkOyc+PHRhYmxlIH dpZHRoPScxMDAlJyBzd SekOS3qIj4qKDJxRUBr hEtatPDsCyLtx3mkACI oDKjmGR7znKcuE6DgzY R0SNSoz4n8Rl00F87bX 3JvdXA+TFLgsRZ6fVH7 fI5zJpIwBwP1ZBboH92 2LtPvrUIuWvjgb5muk8 dsrVs2YiO8TAZcixWio GzoLEW2d9JyKz43A17j IHdpZHRoPSIxNSUiIHZ zrZaulm5lhM0qBh6+PG HzaIX8kIP4iD2cPlBeT uZ0BJspA008GcUaiQVt Fvfgm7gqh3prmSf1LjR kJGOakxVybCubPAE5f4 MjMz75M9CvdIyvn5EaE cm9dc57nJOcu0G0pHD4 V5BjOCGnizoppZRwoBq jHQ2rFANdjwtuDJTtkV 6lRMWhL0g8HcAxBxD4Q XstE3XzlrF2MSXcaMTo YPMdfTRRpX9bxywxc9e bvplsUcGgPMFoOPr3HS m1UUGudXjrUaPnGQZ2H bK8FAZ8hKIefK1waCvr ltkdhU7cRdk+FUW5zJF liAZJQU6fDiqchCG+PH VkRGV6xWeaPXlmWNBem A3kRCRbV5p2HuLjBsJ2 QHtdM8InnsN1CFSvgWK pJADabCCStU5hwclrf5 amhndqEiRwXFFnPJx8H Mp4VZLojAgeWuSeGWY5 GxT8PXA8nZZgwJ7poBf wytygcB5iQrn+QmlydG yzZJQ8EWg7J0TjBtp8X CQbmUblRA9enWIfWAjo Ur3ehRjauRgoCW2rGYY rjhbbh085ZvHnp1zqGW GmyMJsHImdDUK3F03sc 8I0CSNpAJKtEQA8cCY8 zE2leYxxweuatPWnnPy gdmVydGljYWwtYWxpZ2 57UAAdtXdmRmOfBJc3N 5QuVrj4JVUgtIrdJN8g fYTlMWfzPu5zdQsucKa nCT6uADZjmmkbd044Og Bvu6yfKCFtcZYmETllG FF1I96yo6S4AXVlFISl QFW1cLY5iO2csLeugzb gbGVmdDsgdmVydGljYW bjJPaeV449YSDztLzaI yQleOx8D4CoNut1QXCm uQhnMA3beDHcNCrxTo0 zpQuatFofHH6cFEElsp npt126YbAbp2rbHCCeg LWlWKsmKPV4Y83vt6F2 GJZyPPPkRRD0jSX7kH0 hbGlnbjogbGVmdDsgdm BawIymSPlmUYhwJ271O HRvcDsnPlBhdGllbnQg WQisYXq6Y6CsZqjzqTE +MW25ADEsCQ57bJDwuO Kqm0oxwGx5CxVoNHDkW ZM0gTzmIIsje7DiITIb D82epTGxx3R8UWIdbIh rbWHgHwZcsJP1fK9kWT extkwpb8biigkfUeqna 4trxt63mI68R95sPEgq ZHRoPSIzMCUiIHZhbGl ueo7yiZ4dIj8+PGNvbC J8tTD0oY6bPNKrItY0G UhdW093XrAnbYKqUevc l7nyl1vjoCh9ItL4QRG hfzYmvQpiFSE7w7CxCo 47O00cAXvzLQEpMGYiU AZcYTQhdZyppp9omE5f Ii8+AIMdsHM0xMB9vE5 cPwGgWpI5TYwyA460Jl MdeXGcIbcbU69mF5Smi XA+THEpUml7ORSufHdj ZZ2vzKAcANbaCn5cWJS 2InOaBhEsXXmhO6VfJK DoolutgdjysWP8NLXvF RXocF23Ax9daPchSIXr gOBWtM7pffdgn1zcqmd yUbZcRLZqEUt8IOa3WY TboWbrCgGaZTV7ItC7R BE6nLLytL7eeTdfsgwf yL5fV1GmXNQibeedBe9 5kP5dKfAiMjX8AVzaFv c+Sf0XTjZHPSZFNGXKS 7QDHFMMMC26NC54jMZh n3Y8jOZ1W9PjMHFjmcy hfrxxdMX9CFFmMVIciE 62wMGaOMutGd5gq2I6z 014AHTlMHMkkE60Cz3g bCikFOWjbKQArR3sszf qa4bzvdjsUhHwNJOoZT q3GAt3NLYwgRbiNlWgQ GL5SyY5BQS0dZErrN5v cUkjuadvfU0vFdy+MDQ nSTOlXEf2ETybqUM+PH BzCDF9hBkxITaxLYNeg S4ySUCqS0x6WhZiJqL0 OPpoK3JlVDHqopiaGk9 3vB2aVnRsKpZ3FOngZ9 GzhuY8CDZcfIDeHIobO PI7K44dl7L7UITrUWXx CCL5pPO9bE0jvUbtucp gbGVmdDsgdmVydGljYW vnPPiwX800QFFnbSytA fr9TLcfNJThVS36BC72 oSZxc5V6wWF5L4OpPTF ujeniizrdgFL5PCXaAU VybJ19yAQcYMipRt3ow 5O2v431VZFdTHDgnT26 Cf2whIajFAWhnKTLgJ9 ljibvc9cmthnnDbYiDC ZaTRo1OIx8LIOiuWcpC gVkEKP2DyM0PMW4dITo kI0scStcnkukkS1xTrt +PnLoQHozGT95ZQ91mK Yzs1C4fGB9B9ZxVRUgu lonvaaflCN8COKkGREe yD86cKIwMJtvOc1ge0N 2q238XGIsWOAkcY67Tv 6ffQdkYSAgmHEOnK1ip xeav7gkcpguFuLnEJBs HUf5JMv8RRYzyQknYgH kAUD0UvF8ALZ8pVSpwL 2ioFkekuucgV3aGws+T 4H2xUP4nOJsmIeenCC+ BY08te69G5AaCwnpNhz 6JCUzYVG5uZI6qA0zMK YcDVkcz1T3zFL9J7Qqe iAbwj6zd9tqKAXdABak D64jkRBcv9T3WBTttEQ 8GNRhaWvjLzAkcN96Zm c+FAIfeQzwm8TxJmscj 9lsl2tdfTf2FuEnDMOf juQzcEutZUD4w4ViFs1 9F86vLRbhOUCwITMzLO JhSAXcnVmsrb5buO3eQ i8+SKMoqJN2iJK4oV4g NuNqJtQ9IGpqQ174FoU hqNIjXacqq6ksd7qcaH g3VmBxATBzgaJzlEamD BW5k2TzJr92A8VigJuf d0ZyTtw1bv78gHKdt2E 8vZG9Y3HxNMBpttvslE OjvWvmAT2nSJIwfyrrD SKtcS9mBSGnG9s5SwKt BiW1KTlcU1BegpG4ABU jhQUcPYMahBXTwD2qve olq3krbfruEvPyLOUaZ Nr3HDu5AVZbjVqlXzPq HTB8UfS9NCV8uIRpvY0 gkPlkvojskI9kFuh+UG f1s5pnyBKiOM5fqRS7O Q07VJ11lXBne3Y0vIQ1 A4WoDEUickjwojccjKV 2ASNoDUGpaW25Sg5dbF fcTn4zBJJxECJ4VAYsv AOzI5TwpK5pXfZrBEAl XIUmI8SnwIXdRMjpR72 4TLplUtF2VGEfhuJuW5 AeUTYzjIzqSgC9c2O7E z7HIZ14LL97CA33gFIk i1W7jGO7M6YkSEBbsmp cgdxwrFQ6JLSeSQTruA 70Uv1oxWimVt7wOYXrH FN4COQeiAUdX2EjaI0c EfWiPPWjACHwI4RppPJ hQKowS078IRrrKhG0YO IefvKdB6PtAQJqfHkpJ fN6d5T0Iv2OGf70EH40 GO11dUZgk7X4sDL5G1Q oBCJmmvhxhaougGF3QL JhULHibC06Oi7ygCpqN v7oTNRkNJE5ZLHozWRx L0EavF7yQsJnQSHnNIM iP7QviFDfUPzoZ832AE twNwH3BREkujZbJ0VzI KYiuAdkXuO6e1E5Ba6A VKilzjw8V1LoQhcpmWQ +NS62JSIdRU87oKEomW Xui7qovHe1MgFjCBUyP SM6pCkyVRfvi8WzHHUx T49knYSwm6J5L (more content not included)... Normal [facility] Consent for Treatmenton 04-25 Consent for Treatment [id number] 08#1.00TIFF Normal [facility] Heart and Vascular Office/Cl inic Noteon [...] virus vaccine, inactivated 08/01/2023 Recorded SARS-CoV-2 (COVID-19) mRNAMUL.ORD![id number] 09/27/2022 Recorded 2023-10-22: TPV70 influenza virus vaccine, inactivated 09/13/2022 Recorded SARS-CoV-2 (COVID-19) mRNA-1273 vaccine 06/28/2022 Recorded 2023-10-22: TPV70 SARS-CoV-2 (COVID-19) mRNA-1273 v (more content not included)... [facility] Comment on above: Result Comment: Elec tronically Signed By: Noman ALLISON, Isela Johnson\.br\Date and Time Signed: 05/04/24 08:43 EDT Physician Orderon 05-04-2024 Physician Order [id number]#1.00TIFF [facility] Ambulatory Visit Summaryon 0 04-08-2024 Ambulatory Visit Summary SANDEE DAI :1950 Visit Date:04/08/2024 Ambulatory Visit Instructions [...] 8:00 AM EST With: Ellen Carlos Where: [facility] Invalid Interpretation Code [address], [place] [address]- \.br\ You Need to Schedule the Following Appointments\.br\ Follow Up with Ellen Carlos When: In 6 months\.br\ Comments:\.br\ CCM\.br\ Where:\.br\ [address], [address]\ [place] [address].br\ \.br\ You Need to Complete the Following\.br\ Comprehensive Metabolic Panel, Blood, Routine collect, 04/08/24, Order for future visit, Lab Collect, Routine adult health maintenance [facility] Family Medicine Office/Clini c Noteon 04-08-2024 Family Medicine Office/Clinic Note Chief Complaint pt here for wellness. wants ears checked, feels plugged. 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 Ullin posterior oropharynx, no palatal inflammation, uvula midline, [...] removal done (more content not included)... Normal [facility] Comment on above: Result Comment: Elec tronically Signed By: Daquan GRANADOS, Ellen Bonilla\.br\Date and Time Signed: 04/08/24 10:50 EDT Physician Referralon 024 Physician Referral [id number] 286#1.00TIFF Normal [facility] Consultation Noteon 04-03-20 24 Consultation Note [id number] E#1.00TIFF Normal [facility] CBC w/ Auto Diffon 4 Basophils/100 WBC (Bld) 1.0 % Normal 0.0-2.0 [facility] Comment on above: Performed By: #### 2 131759, 74841393, 828728078, 853924602, 6589480, 5743927 ####[facility] [address] [place] [address] Basophils/Leukocytes Auto (Bld) [Pure # fraction] 0.1 E9/L Normal 0.0-0.2 [facility] Comment on above: Performed By: #### 2 631073, 03557310, 754531806, 555954075, 4126435, 0298227 ####[facility] [address] [place] [address] Eosinophils (Bld) [#/Vol] 0.6 E9/L High 0.0-0.5 [facility] Comment on above: Performed By: #### 2 217130, 88206759, 273172762, 000826722, 4639905, 9246868 ####[address] [place] [address] Eosinophils/100 WBC (Bld) 7.2 % Normal 0.0-8.0 [facility] Comment on above: Performed By: #### 2 172219, 44160139, 891530398, 402866445, 8084086, 8459732 ####[address] [place] [address] Erythrocyte distribution width (RBC) [Ratio] 13.6 % Normal 10.9-14.2 [facility] Comment on above: Performed By: #### 2 494083, 27522352, 315324263, 244204601, 1575086, 7029335 ####[address] [address] Hematocrit (Bld) [Volume fraction] 38.1 % Normal 34.0-46.0 [facility] Comment on above: Performed By: #### 2 192755, 26665154, 333751898, 191911232, 0495627, 4510432 ####[address] [address] Hemoglobin (Bld) [Mass/Vol] 12.7 g/dL Normal 12.0-16.0 [facility] Comment on above: Performed By: #### 2 893765, 16982941, 916118658, 570991666, 4382375, 7820530 ####[address] [address] Lymphocytes (Bld) [#/Vol] 1.6 E9/L Normal 1.0-4.0 [facility] Comment on above: Performed By: #### 2 639584, 06121057, 535595345, 069056511, 5013067, 2186445 ####[address] [address] Lymphocytes/100 WBC (Bld) 20.5 % Normal 14.0-50.0 [facility] Comment on above: Performed By: #### 2 702672, 52000550, 634566134, 621309810, 5206041, 4790400 ####[facility] [address] [place] [address] MCH (RBC) [Entitic mass] 28.3 pg Normal 27.0-34.0 [facility] Comment on above: Performed By: #### 2 877474, 09789557, 145670060, 103486656, 9216667, 6559532 ####[address] [address] MCHC (RBC) [Mass/Vol] 33.3 g/dL Normal 31.4-36.0 [facility] Comment on above: Performed By: #### 2 251612, 20086318, 322750418, 820419383, 1243880, 4305680 ####[address] [address] MCV (RBC) [Entitic vol] 85.0 fL Normal 80.0-100.0 [facility] Comment on above: Performed By: #### 2 075094, 41469454, 305162507, 719981481, 4605434, 0989933 ####[address] [address] Monocytes (Bld) [#/Vol] 0.9 E9/L Normal 0.2-1.0 [facility] Comment on above: Performed By: #### 2 293161, 75898431, 520598532, 424632694, 2845807, 7386884 ####[address] [address] Neutrophils (Bld) [#/Vol] 4.7 E9/L Normal 2.0-7.5 [facility] Comment on above: Performed By: #### 2 817916, 77623065, 149998326, 521406373, 8193885, 5607187 ####[address] [place] [address] Neutrophils/100 WBC (Bld) 59.8 % Normal 36.0-75.0 [facility] Comment on above: Performed By: #### 2 298819, 97304051, 739126466, 192050579, 9441893, 4419707 ####[address] [place] [address] Platelet 196.0 E9/L Normal 150.0-500.0 [facility] Comment on above: Performed By: #### 2 581045, 37992543, 581903325, 889305497, 9042718, 6411761 ####[address] [address] Platelet mean volume (Bld) [Entitic vol] 8.2 fL Normal 6.4-10.8 [facility] Comment on above: Performed By: #### 2 360550, 09979569, 607795178, 530565036, 5298144, 9998047 ####[address] [address] RBC (Bld) [#/Vol] 4.5 E12/L Normal 4.3-5.9 [facility] Comment on above: Performed By: #### 2 902363, 23691465, 823131815, 026926053, 3981471, 0433297 ####[address] [address] WBC corrected for nucl RBC Auto (Bld) [#/Vol] 7.8 E9/L Normal 4.0-11.0 [facility] Comment on above: Performed By: #### 2 662144, 05319806, 949738804, 097152199, 8191287, 3747417 ####[address] [place] [address] CHEMISTRYOrdered By: SYSTEM SYSTEM on 03-27-2024 25-hydroxyvitamin [...] (Bld) [Mass fraction] 5.8 % Normal <=5.9% [facility] [place] ChemAuto[place] CMPon 03-27-2024 Albumin [Mass/Vol] 4.1 g/dL Normal 3.3-5.0 [facility] Comment on above: Performed By: #### 2 043617, 68187476, 234073213, 774855056, 9336539, 4529132 ####[facility] [address] [place] [address] Albumin/Globulin (S) [Mass conc ratio] 1.5 Normal 1.1-2.2 [facility] Comment on above: Performed By: #### 2 276798, 17173596, 766343884, 573682386, 7430079, 8920551 ####[facility] [address] [place] [address] ALP [Catalytic activity/Vol] 108 Int._Unit/L High 21-98 [facility] Comment on above: Performed By: #### 2 761942, 01196572, 976375175, 862491996, 2714406, 6499947 ####[facility] [address] [place] [address] ALT No additional P-5'-P [Catalytic activity/Vol] 31 Int._Unit/L Normal 6-46 [facility] Comment on above: Performed By: #### 2 700569, 55487734, 762485008, 347709814, 9452097, 2037102 ####[facility] [address] [facility] [address] Anion gap [Moles/Vol] 13 mmol/L Normal 6-16 [facility] Comment on above: Performed By: #### 2 316392, 68291050, 337714165, 505410852, 6187504, 9154842 ####[facility] [address] [place] [address] AST [Catalytic activity/Vol] 19 Int._Unit/L Normal 5-43 [facility] Comment on above: Performed By: #### 2 334609, 57924982, 938897128, 385615684, 0331422, 8209974 ####[facility] [address] [place] [address] Bilirubin [Mass/Vol] 0.4 mg/dL Normal 0.0-1.1 [facility] Comment on above: Performed By: #### 2 054589, 16921582, 970283260, 606166241, 2807522, 8374645 ####[facility] [address] [facility] [address] Calcium [Mass/Vol] 9.2 mg/dL Normal 8.9-11.1 [facility] Comment on above: Performed By: #### 2 001674, 33048354, 210707022, 232014550, 2500359, 2561844 ####[facility] [address] [place] [address] Chloride [Moles/Vol] 106 mmol/L Normal 101-111 [facility] Comment on above: Performed By: #### 2 307820, 19903252, 526195584, 447674662, 6869549, 4060333 ####[facility] [address] [place] [address] CO2 [Moles/Vol] 26 mmol/L Normal 21-31 [facility] Comment on above: Performed By: #### 2 978850, 70885848, 189616555, 983620758, 4339586, 1965431 ####[facility] [address] [place] [address] Creatinine [Mass/Vol] 0.8 mg/dL Normal 0.5-1.3 [facility] Comment on above: Performed By: #### 2 703888, 47633921, 284469550, 491180342, 6954085, 7779001 ####[facility] [address] [place] [address] Globulin (S) [Mass/Vol] 2.7 g/dL Normal 1.4-4.0 [facility] Comment on above: Performed By: #### 2 869320, 27824572, 392329119, 031339913, 5992265, 4787995 ####[facility] [address] [place] [address] Glucose [Mass/Vol] 112 mg/dL Normal 55-199 [facility] Comment on above: Performed By: #### 2 097665, 96135749, 436444904, 713256715, 9354311, 3905740 ####[facility] [address] [place] [address] Potassium [Moles/Vol] 4.5 mmol/L Normal 3.5-5.3 [facility] Comment on above: Performed By: #### 2 526994, 96907495, 889877214, 235065042, 8493714, 7101058 ####[facility] [address] [place] [address] Protein [Mass/Vol] 6.8 g/dL Normal 6.0-7.8 [facility] Comment on above: Performed By: #### 2 945395, 65922224, 206172519, 360194117, 8695854, 9601640 ####[facility] [address] [place] [address] Sodium [Moles/Vol] 140 mmol/L Normal 135-145 [facility] Comment on above: Performed By: #### 2 158838, 65406162, 508084448, 585150616, 3957452, 5005852 ####[facility] [address] [place] [address] Urea nitrogen [Mass/Vol] 14 mg/dL Normal 5-21 [facility] Comment on above: Performed By: #### 2 816408, 92120910, 003134430, 057193744, 6205999, 0409994 ####[facility] [address] [place] [address] Urea nitrogen/Creatinine [Mass ratio] 18 No Units Normal 10-20 [facility] Comment on above: Performed By: #### 2 640996, 45161380, 145767279, 300691908, 7275224, 4138818 ####[facility] [address] [place] [address] Consent for Treatmenton Consent for Treatment [id number] 81#1.00TIFF Normal [facility] HEMATOLOGYOrdered By: SYSTEM SYSTEM on 03-27-2024 [...] Normal 4.0 - 11.0 E9/L Remisol Heme [id number] 03-27-2024 HbA1c (Bld) [Mass fraction] 5.8 % Normal <=5.9 [facility] Comment on above: Performed By: #### 2 378474, 96957865, 454649830, 020016968, 3435001, 4557988 ####[place] [address] [place] [address] Lipid Panelon 03-27-2024 Cholesterol [Mass/Vol] 140 mg/dL Normal 120-200 [facility] Comment on above: Performed By: #### 2 877203, 01943916, 879772145, 590079685, 6666617, 0780440 ####[facility] [address] [place] [address] Cholesterol in HDL [Mass/Vol] 48 mg/dL Invalid Interpretation Code [facility] Comment on above: Result Comment: '>= 60 LOW RISK' '<= 40 HIGH RISK' Performed By: #### 2 930292, 20737029, 220379069, 262616600, 0245472, 7174381 ####[facility] [address] [place] [address] Cholesterol in LDL [Mass/Vol] 69 mg/dL Normal <=129 [facility] Comment on above: Performed By: #### 2 686754, 67487384, 231179602, 061919245, 5531711, 9375502 ####[facility] [address] [place] [address] Cholesterol in VLDL [Mass/Vol] 40 mg/dL Normal 7-40 [facility] Comment on above: Performed By: #### 2 416757, 83874079, 257304459, 269968201, 9904618, 5715824 ####[facility] [address] [place] [address] Triglyceride [Mass/Vol] 199 mg/dL High <=149 [facility] Comment on above: Performed By: #### 2 017689, 98223582, 437002790, 290789799, 6130454, 9234991 ####[facility] [address] [place] [address] Physician Orderon 03-27-2024 Physician Order [id number] 13#1.00TIFF Normal [facility] Vitamin D 25 Hydroxyon 03-27 25-hydroxyvitamin D3 [Mass/Vol] 27.7 ng/mL Low 30.0-100.0 [facility] Comment on above: Performed By: #### 2 420332, 40035494, 152878259, 046055532, 1819609, 0633177 ####[facility] [address] [place] [address] eGFRon 03-27-2024 eGFR 77 mL/min/1.73 m2 Normal >=59 [facility] Comment on above: Order Comment: Order added by Discern Expert. Performed By: #### 2 808540, 21624167, 391796150, 408418078, 8879380, 1134690 ####[facility] [address] [place] [address] Patient Educationon 03-18-20 Patient Education Endocrinology Diabetes [...] Carrots. Green beans. Tomatoes. Peppers. Onions. Cucumbers. [place] sprouts. Grains Whole grains, such as whole-wheat or whole-grain bread, crackers, tortillas, cereal, and pasta. Unsweetened oatmeal. (more content not included)... Normal [facility] Ambulatory Visit Summaryon 0 01-29-2024 Ambulatory Visit Summary SANDEE DAI :1950 Visit Date:01/29/2024 Ambulatory Visit Instructions Your [...] EDT With: Daquan GRANADOS, Ellen Bonilla Where: [facility] Normal [address] [place] [address]- \.br\ You Need to Complete the Following\.br\ [...] (44 mL).\.br\ General instructions\.br\ ? \.br\ Take buzo-nrx-gghosqj and prescription medicines only as told by [...] of clutter to prevent tripping and/or falling. [place] Advance Directives reviewed. Documents remain at home, [...] Labs were ordered, [place] [facility] No concerns with bowel/ bladder. Colonoscopy last [...] directed. 3. On statin therapy (Z79.899: Other watermaster (current) drug therapy) Patient encouraged to eat [...] of Hepatitis C for people born between 5272-4887. Handout CDC-Hepatitis C given. Patient to have [...] data avai (more content not included)... Normal [facility] Comment on above: Result Comment: Elec tronically Signed By: Ellen Carlos\.br\Date and Time Signed: 01/29/24 12:22 EST\.br\Electronically Co-Signed [...] liquor (44 mL). General instructions ? Take mfhm-dfp-dprdtlm and prescription medicines only as told by [...] important. Where to find more information ? [place] [employer]: www.diabetes.org ? Academy of Nutrition and Dietetics: www.eatright.org ? [place] [employer]: www.heart.org Contact a health care provider if: ? You have any of these symptoms: ? Increased hunger. ? Increased urination. ? Increased thirst. ? Fatigue. ? Vision changes, such as blurry vision. Get help right away i (more content not included)... Normal [facility] Screenson 01-29-2024 Screens [id number]#[id number] Normal [facility] Consultation Noteon 12-29-19 24 Consultation Note [id number]#1.00TIFF Normal [facility] No Panel Informationon 12-27 Harper Flores 12/27/2023 2:10 PM L Inj/Asp: bilateral knee on 12/27/2023 9:02 AM Indications: pain Details: 25 G needle Medications (Right): 12 mg betamethasone acetate-betamethaso ne sodium phosphate 6 (3-3) MG/ML Medications (Left): 12 mg betamethasone acetate-betamethaso ne sodium phosphate 6 (3-3) MG/ML Consent was given by the patient. [facility] Radiology Study observation (narrative) [facility] XR Knee - left 3 [facility] Result: Bilateral standing PA, bilateral sunrise, and lateral of the affected knee were imaged today in the office. Patient has bilateral medial compartments gpfj-gd-uxbk as well as patellofemoral disease no evidence of acute fracture or bony tumor seen. [facility] XR Knee - right 3 [facility] Result: Bilateral standing PA, bilateral sunrise, and lateral of the affected knee were imaged today in the office. Patient has bilateral medial compartments iyiq-wg-rawu as well as patellofemoral disease no evidence of acute fracture or bony tumor seen. [facility] Ambulatory Visit Summaryon 0 12-09-2023 Ambulatory Visit Summary SANDEE DAI :1950 Visit Date:12/09/2023 Ambulatory Visit Instructions [...] Appointments Saturday 8:00 AM EST With: Where: [facility] Normal [address], [place] [address]- \.br\ You Need to Schedule the Following Appointments\.br\ Follow Up with Ellen Carlos When: In 6 months\.br\ Comments:\.br\ CCM\.br\ Where:\.br\ [address], [address]br\ [place] [address]-\.br\ \.br\ Medications\.br\ What How Much When Why [...] day GERD (gastroesophageal reflux disease) Pickup at [facility]/pharmacy #[id number]\.br\ Unchanged glucosamine\.br\ Unchanged losartan (losartan 25 mg [...] Every day Duration: 90 Days Pickup at [facility]/pharmacy #[id number]\.br\ Pharmacy Information\.br\ [facility]/pharmacy #[id number]: [address], [place] [id number] [phone]\.br\ Allergies\.br\ alendronate (Hives, Rash)\.br\ Problems\.br\ Ongoing - [...] hot sauces, and barbecue sauce.\.br\ ? \.br\ [place] fruit juices and citrus fruits, such as oranges, crystal, and limes.\.br\ ? \.br\ Tomato-based foods, such as red sauce, chili, salsa, and pizza with red sauce.\.br\ ? \.br\ Fried and fatty foods, such as donuts, polish fries, potato chips, and high-fat dressings.\.br\ ? [...] health care provider.\.br\ Medicines\.br\ ? \.br\ Take dhho-auy-zundrnr and prescription medicines only as told by [...] your health care provider.\.br\ ? \.br\ Take bfqk-tpt-gbrcypx and prescription medicines only as told by your health care provider. Do not take aspirin or NSAIDs, such as ibuprofen, unless your health care provider told you to do so.\.br\ ? \.br\ Contact a health care provider if your symptoms do not improve or they get worse.\.br\ This information is not intended to replace advice given to you by your health care p [facility] Family Medicine Office/Clini c Noteon 12-09-2023 Family Medicine Office/Clinic Note Chief Complaint pt here for 1 month f/u. HPI Staff Medicare wellness: utd Last routine labs: 03/27/23 smoker status: never Mammogram (qyr 45-54, q2yrs 55-75): utd colonoscopy/cologua rd (45-75yo): utd DEXA (F>65, M>70): due- ordered flu vaccine status: utd covid vaccine: utd History of Present Illness Sandee is a 73 yo female presenting today [...] Mouth: mucous membranes pink, moist and intact. Ullin posterior oropharynx, no palatal inflammation, uvula midline, [...] Daily, # 90 tab(s), Refills(s) 1, Pharmacy: [facility]/pharmacy #[id number], 166, cm, 12/09/23 9:04:00 EST, Height/Length [...] and weight management will be followed at [facility] (more content not included)... Normal [facility] Comment on above: Result Comment: Elec [...] vinegar, hot sauces, and barbecue sauce. ? [place] fruit juices and citrus fruits, such as oranges, crystal, and limes. ? Tomato-based foods, such as red sauce, chili, salsa, and pizza with red sauce. ? Fried and fatty foods, such as donuts, polish fries, potato chips, and high-fat dressings. ? [...] your health care provider. Medicines ? Take qyjb-akg-uzzkdqi and prescription medicines only as told by [...] by your health care provider. ? Take ehcx-jta-ckwogon and prescription medicines only as told by [...] provider. Document Revised: 05/17/2021 Document Reviewed: 05/17/2021 Elsevier Patient Education ? 2022 [employer] Nutrition BMI for Adults What is [...] be difficult (more content not included)... Normal [facility] Ambulatory Visit Summaryon 1 12-23-2022 Ambulatory Visit Summary MALAIKA SANDEE Wallace :1950 Visit Date:10/23/2023 Ambulatory Visit Instructions Your [...] 9:00 AM EST With: Ellen Carlos Where: [facility] Invalid Interpretation Code [address] [place] [address]- \.br\ Saturday 8:00 AM EDT \.br\ With: Daquan ROBERTA, Ellen Bonilla\.br\ Where: [facility] Medicine Office/Clini c Noteon 10-23-2023 Family Medicine Office/Clinic Note Chief Complaint pt here for being gassy, onset comes and goes few months. HPI Staff Medicare wellness: utd Last routine labs: 03/27/23 smoker status: never Mammogram (qyr 45-54, q2yrs 55-75): utd colonoscopy/cologua rd (45-75yo): utd DEXA (F>65, M>70): due flu vaccine status: utd covid vaccine: utd History of Present Illness Sandee is a 73 yo female presenting today [...] Mouth: mucous membranes pink, moist and intact. Ullin posterior oropharynx, no palatal inflammation, uvula midline, [...] abdominal tendernes (more content not included)... Normal [facility] Comment on above: Result Comment: Elec [...] candy. ? Chewing gum. Medicines ? Take duvi-dbu-vbsuouo and prescription medicines only as told by [...] provider. Document Revised: 06/13/2021 Document Reviewed: 06/13/2021 [employer] Patient Education ? 2022 [employer] Pediatrics [employer], Pediatric [...] after y (more content not included)... Normal [facility] CHEMISTRYOrdered By: SYSTEM SYSTEM on 03-27-2023 [...] % High <=5.9% [facility] HEMATOLOGYOrdered By: 1stdibs SYSTEM on 03-27-2023 Basophils/100 WBC (Bld) 0.7 [...] MG MAMM SCREEN 3D PADDY CAD Patient: SANDEE DAI Exam Date: 08/09/2022 : 1950 Gender:F Ordering : RUPA FINK Admission #: [id number] Family : Order #: [id number] CLICK HERE TO VIEW EXAM RADIOLOGY REPORT [...] Treatments None Family Cancers None LOCATION: [facility] BREAST COMPOSITION: Scattered areas fibroglandular density. FINDINGS: [...] Hussein MD on 08/09/2022 at 12:21 Normal [facility] GLYCOHEMOGLOBIN A1Con 2021 ADA RECOMMENDATION ADA THERAPEUTIC TARGET 6.0 - 7.0 ACTION SUGGESTED > 7.0 Normal [facility] Comment on above: Performed By: #### A 1C #### [facility] [address] [place] [address] Dr. Nancy Thornton Glucose [Mass/Vol] 128 mg/dL Normal [facility] Comment on above: Performed By: #### A 1C #### [facility] [address] [place] [address] Dr. Nancy Thornton HbA1c (Bld) [Mass fraction] 6.1 % Critically high <=6.0 [facility] Comment on above: Performed By: #### A 1C #### [facility] [address] [place] [address] Dr. Nancy Thornton LIPID PROFILEon 03-01-2022 CHOL-HDL RATIO NORM SEE BELOW Normal [facility] Comment on above: Result Comment: 3.3 - 4.4 LOW RISK 4.4 - 7.1 AVERAGE RISK 7.1 - 11.0 MODERATE RISK >11.0 HIGH RISK Performed By: #### C MP, LIPID #### [facility] [address] [place] [address] Dr. Nancy Thornton Cholesterol [Mass/Vol] 143 mg/dL Normal <=200 [facility] Comment on above: Performed By: #### C MP, LIPID #### [facility] [address] [place] [address] Dr. Nancy Thornton Cholesterol in HDL [Mass/Vol] 56 mg/dL Normal 40-60 [facility] Comment on above: Performed By: #### C MP, LIPID #### [facility] [address] [address] [address] Nancy Thornton Cholesterol in LDL [Mass/Vol] 52.2 mg/dL Normal [facility] Comment on above: Performed By: #### C MP, LIPID #### [facility] [address] [address] [address] Nancy Thornton Cholesterol.total/Ch olesterol in HDL [Mass ratio] 2.6 {ratio} Normal [facility] Comment on above: Performed By: #### C MP, LIPID #### [facility] [address] [place] [address] Dr. Nancy Thornton HDL NORMAL > or = 60 mg/dl - LOW CARDIOVASCULAR RISK <40 mg/dl - HIGH CARDIOVASCULAR RISK Normal [facility] Comment on above: Performed By: #### C MP, LIPID #### [facility] [address] [place] [address] Dr. Nancy Thornton LDL CALC NORMAL SEE BELOW Normal [facility] Comment on above: Result Comment: <100 mg/dl OPTIMAL 100 - 129 mg/dl NEAR OR ABOVE OPTIMAL 130 - 159 mg/dl BORDERLINE HIGH 160 - 189 mg/dl HIGH >190 mg/dl VERY HIGH Performed By: #### C MP, LIPID #### [facility] [address] [place] [address] Dr. Nancy Thornton Triglyceride [Mass/Vol] 174 mg/dL Critically high <=150 [facility] Comment on above: Performed By: #### C MP, LIPID #### [facility] [address] [place] [address] Dr. Nancy Thornton VLDL CALC 34.8 mg/dL Normal [facility] Comment on above: Performed By: #### C MP, LIPID #### [facility] [address] [place] [address] Dr. Nancy Thornton PROF 14(COMP METB)on 022 Albumin [Mass/Vol] 3.5 g/dL Normal 3.4-5.[address] [facility] Comment on above: Performed By: #### C MP, LIPID #### [facility] [address] [place] [address] Dr. Nancy Thornton Albumin/Globulin [Mass ratio] 0.9 {ratio} Normal [facility] Comment on above: Performed By: #### C MP, LIPID #### [facility] [address] [place] [address] Dr. Nancy Thornton ALP [Catalytic activity/Vol] 123 U/L Critically high 46-116 [facility] Comment on above: Performed By: #### C MP, LIPID #### [facility] [address] [place] [address] Dr. Nancy Thornton ALT [Catalytic activity/Vol] 40 U/L Normal 14-59 [facility] Comment on above: Performed By: #### C MP, LIPID #### [facility] [address] [place] [address] Dr. Nancy Thornton Anion gap [Moles/Vol] 12.8 mmol/L Normal [facility] Comment on above: Performed By: #### C MP, LIPID #### [facility] [address] [place] [address] Dr. Nancy Thornton AST [Catalytic activity/Vol] 26 U/L Normal 15-37 [facility] Comment on above: Performed By: #### C MP, LIPID #### [facility] [address] [place] [address] Dr. Nancy Thornton Bilirubin [Mass/Vol] 0.5 mg/dL Normal 0.2-1.3 [facility] Comment on above: Performed By: #### C MP, LIPID #### [facility] [address] [place] [address] Dr. Nancy Thornton Calcium [Mass/Vol] 9.0 mg/dL Normal 8.5-10.[address] [facility] Comment on above: Performed By: #### C MP, LIPID #### [facility] [address] [place] [address] Dr. Nancy Thornton Chloride [Moles/Vol] 105 mmol/L Normal 98-107 [facility] Comment on above: Performed By: #### C MP, LIPID #### [facility] [address] [place] [address] Dr. Nancy Thornton CO2 [Moles/Vol] 26.1 mmol/L Normal 22.0-30.0 [facility] Comment on above: Performed By: #### C MP, LIPID #### [facility] [address] [place] [address] Dr. Nancy Thornton Creatinine [Mass/Vol] 0.80 mg/dL Normal 0.52-1.04 [facility] Comment on above: Performed By: #### C MP, LIPID #### [facility] [address] [place] [address] Dr. Nancy Thornton EGFR-AF MARSHALLESE >60 Normal >=60 [facility] Comment on above: Performed By: #### C MP, LIPID #### [facility] [address] [place] [address] Dr. Nancy Thornton EGFR-NON AF MARSHALLESE >60 Normal >=60 [facility] Comment on above: Performed By: #### C MP, LIPID #### [facility] [address] [place] [address] Dr. Nancy Thornton Globulin (S) [Mass/Vol] 3.7 g/dL Normal [facility] Comment on above: Performed By: #### C MP, LIPID #### [facility] [address] [place] [address] Dr. Nancy Thonrton Glucose [Mass/Vol] 105 mg/dL Normal 74-[address] [facility] Comment on above: Performed By: #### C MP, LIPID #### [facility] [address] [place] [address] Dr. Nancy Thornton Potassium [Moles/Vol] 4.9 mmol/L Normal 3.4-5.0 [facility] Comment on above: Performed By: #### C MP, LIPID #### [facility] [address] [place] [address] Dr. Nancy Thornton Protein [Mass/Vol] 7.2 g/dL Normal 6.1-8.[address] [facility] Comment on above: Performed By: #### C MP, LIPID #### [facility] [address] [place] [address] Dr. Nancy Thornton Sodium [Moles/Vol] 139 mmol/L Normal 137-[address] [facility] Comment on above: Performed By: #### C MP, LIPID #### [facility] [address] [place] [address] Dr. Nancy Thornton Urea nitrogen [Mass/Vol] 15.0 mg/dL Normal 7.0-18.0 [facility] Comment on above: Performed By: #### C MP, LIPID #### [facility] [address] [place] [address] Dr. Nancy Thornton Urea nitrogen/Creatinine [Mass ratio] 18.8 mg/mg Normal [facility] Comment on above: Performed By: #### C MP, LIPID #### [facility] [address] [place] [address] Dr. Nancy Thornton VITAMIN D 25 OHon 03-01-2022 VIT D 25-OH 29.8 ng/mL Normal [facility] Comment on above: Performed By: #### V ITAD #### [facility] [address] [place] [address] Dr. Nancy Thornton VIT D RANGES SEE BELOW Normal [facility] Comment on above: Result Comment: <20 ng/mL Vit D deficient 20 - <30 ng/mL Vit D insufficient 30 - 100 ng/mL Vit D sufficient >100 ng/mL Potential Toxicity Performed By: #### V ITAD #### [facility] [address] [place] [address] Dr. Nancy Thornton LIPID PROFILEon 09-14-2021 CHOL-HDL RATIO NORM SEE BELOW Normal [facility] Comment on above: Result Comment: 3.3 - 4.4 LOW RISK 4.4 - 7.1 AVERAGE RISK 7.1 - 11.0 MODERATE RISK >11.0 HIGH RISK Performed By: #### C MP, LIPID #### [facility] [address] [place] [address] Dr. Nancy Thornton Cholesterol [Mass/Vol] 138 mg/dL Normal <=200 [facility] Comment on above: Performed By: #### C MP, LIPID #### [facility] [address] [place] [address] Dr. Nancy Thornton Cholesterol in HDL [Mass/Vol] 58 mg/dL Normal [facility] Comment on above: Performed By: #### C MP, LIPID #### [facility] [address] [address] [address] Nancy Thornton Cholesterol in LDL [Mass/Vol] 37.4 mg/dL Normal [facility] Comment on above: Performed By: #### C MP, LIPID #### [facility] [address] [address] [address] Nnacy Thornton Cholesterol.total/Ch olesterol in HDL [Mass ratio] 2.4 {ratio} Normal [facility] Comment on above: Performed By: #### C MP, LIPID #### [facility] [address] [place] [address] Dr. Nancy Thornton HDL NORMAL > or = 60 mg/dl - LOW CARDIOVASCULAR RISK <40 mg/dl - HIGH CARDIOVASCULAR RISK Normal [facility] Comment on above: Performed By: #### C MP, LIPID #### [facility] [address] [address] [address] Nancy Thornton LDL CALC NORMAL SEE BELOW Normal [facility] Comment on above: Result Comment: <100 mg/dl OPTIMAL 100 - 129 mg/dl NEAR OR ABOVE OPTIMAL 130 - 159 mg/dl BORDERLINE HIGH 160 - 189 mg/dl HIGH >190 mg/dl VERY HIGH Performed By: #### C MP, LIPID #### [facility] [address] [place] [address] Dr. Nancy Thornton Triglyceride [Mass/Vol] 213 mg/dL Critically high <=150 [facility] Comment on above: Performed By: #### C MP, LIPID #### [facility] [address] [address] [address] Nancy Thornton VLDL CALC 42.6 mg/dL Normal [facility] Comment on above: Performed By: #### C MP, LIPID #### [facility] [address] [place] [address] Dr. Nancy Thornton PROF 14(COMP METB)on 021 Albumin [Mass/Vol] 3.5 g/dL Normal 3.5-5.[address] [facility] Comment on above: Performed By: #### C MP, LIPID #### [facility] [address] [address] [address] Nancy Thornton Albumin/Globulin [Mass ratio] 1.0 {ratio} Normal [facility] Comment on above: Performed By: #### C MP, LIPID #### [facility] [address] [address] [address] Nanyc Thornton ALP [Catalytic activity/Vol] 96 U/L Normal 38-126 [facility] Comment on above: Performed By: #### C MP, LIPID #### [facility] [address] [address] [address] Nancy Thornton ALT [Catalytic activity/Vol] 44 U/L Normal 9-52 [facility] Comment on above: Performed By: #### C MP, LIPID #### [facility] [address] [place] [address] Dr. Nancy Thornton Anion gap [Moles/Vol] 8.8 mmol/L Normal [facility] Comment on above: Performed By: #### C MP, LIPID #### [facility] [address] [place] [address] Dr. Nancy Thornton AST [Catalytic activity/Vol] 24 U/L Normal 14-36 [facility] Comment on above: Performed By: #### C MP, LIPID #### [facility] [address] [address] [address] Nancy Thornton Bilirubin [Mass/Vol] 0.4 mg/dL Normal 0.2-1.3 [facility] Comment on above: Performed By: #### C MP, LIPID #### [facility] [address] [address] [address] Nancy Thornton Calcium [Mass/Vol] 8.7 mg/dL Normal 8.4-10.[address] [facility] Comment on above: Performed By: #### C MP, LIPID #### [facility] [address] [address] [address] Nancy Thornton Chloride [Moles/Vol] 105 mmol/L Normal 98-107 [facility] Comment on above: Performed By: #### C MP, LIPID #### [facility] [address] [place] [address] Dr. Nancy Thornton CO2 [Moles/Vol] 29.3 mmol/L Normal 22.0-30.0 [facility] Comment on above: Performed By: #### C MP, LIPID #### [facility] [address] [place] [address] Dr. Nancy Thornton Creatinine [Mass/Vol] 0.81 mg/dL Normal 0.52-1.04 [facility] Comment on above: Performed By: #### C MP, LIPID #### [facility] [address] [place] [address] Dr. Nancy Thornton EGFR-AF MARSHALLESE >60 Normal >=60 [facility] Comment on above: Performed By: #### C MP, LIPID #### [facility] [address] [place] [address] Dr. Nancy Thornton EGFR-NON AF MARSHALLESE >60 Normal >=60 [facility] Comment on above: Performed By: #### C MP, LIPID #### [facility] [address] [place] [address] Dr. Nancy Thornton Globulin (S) [Mass/Vol] 3.6 g/dL Normal [facility] Comment on above: Performed By: #### C MP, LIPID #### [facility] [address] [place] [address] Dr. Nancy Thornton Glucose [Mass/Vol] 103 mg/dL Normal 74-[address] [facility] Comment on above: Performed By: #### C MP, LIPID #### [facility] [address] [place] [address] Dr. Nancy Thornton Potassium [Moles/Vol] 4.1 mmol/L Normal 3.4-5.0 [facility] Comment on above: Performed By: #### C MP, LIPID #### [facility] [address] [place] [address] Dr. Nancy Thornton Protein [Mass/Vol] 7.1 g/dL Normal 6.1-8.[address] [facility] Comment on above: Performed By: #### C MP, LIPID #### [facility] [address] [place], [place] [address] Dr. Nancy Thornton Sodium [Moles/Vol] 139 mmol/L Normal 137-[address] [facility] Comment on above: Performed By: #### C MP, LIPID #### [facility] [address] [place], [place] [address] Dr. Nancy Thornton Urea nitrogen [Mass/Vol] 21.0 mg/dL Critically high 7.0-17.0 [facility] Comment on above: Performed By: #### C MP, LIPID #### [facility] [address] [place], [place] [address] Dr. Nancy Thornton Urea nitrogen/Creatinine [Mass ratio] 25.9 mg/mg Normal [facility] Comment on above: Performed By: #### C MP, LIPID #### [facility] [address] [address] [address] Nancy Thornton Vital Signs Date Time Vital Sign Value Performing Clinician Facility 09-24-2024 09:33-0400 Body height 165.1 cm Frankie Morales DPM Work Phone: [facility] 09-24-2024 09:33-0400 Body mass index (BMI) [Ratio] 42.6 kg/m2 Frankie Morales DPM Work Phone: [facility] 09-24-2024 09:33-0400 Body weight 116.12 kg Frankie Morales DPM Work Phone: [facility] 09-24-2024 09:33-0400 Diastolic blood pressure 80 mm[Hg] Frankie Morales DPM Work Phone: [facility] 09-24-2024 09:33-0400 Heart rate 81 /min Frankie Morales DPM Work Phone: [facility] 09-24-2024 09:33-0400 Systolic blood pressure 125 mm[Hg] Frankie Morales DPM Work Phone: [facility] 09-16-2024 10:19-0400 Body height 165.1 cm Danish PAREDESM FACFAS Work Phone: [facility] 09-16-2024 10:19-0400 Body mass index (BMI) [Ratio] 42.6 kg/m2 Danish Dolce DPM FACFAS Work Phone: [facility] 09-16-2024 10:19-0400 Body weight 116.12 kg Danish Dolce DPM FACFAS Work Phone: [facility] 09-16-2024 10:19-0400 Diastolic blood pressure 75 mm[Hg] Danish Dolce DPM FACFAS Work Phone: [facility] 09-16-2024 10:19-0400 Heart rate 72 /min Danish Dolce DPM FACFAS Work Phone: [facility] 09-16-2024 10:19-0400 Systolic blood pressure 128 mm[Hg] Danish Dolce DPM FACFAS Work Phone: [facility] 09-09-2024 10:11-0400 Body height 165.1 cm Danish Dolce DPM FACFAS Work Phone: [facility] 09-09-2024 10:11-0400 Body mass index (BMI) [Ratio] 42.6 kg/m2 Danish Dolce DPM FACFAS Work Phone: [facility] 09-09-2024 10:11-0400 Body weight 116.12 kg Danish Dolce DPM FACFAS Work Phone: [facility] 09-09-2024 10:11-0400 Diastolic blood pressure 75 mm[Hg] Danish Dolce DPM FACFAS Work Phone: [facility] 09-09-2024 10:11-0400 Heart rate 72 /min Danish Dolce DPM FACFAS Work Phone: [facility] 09-09-2024 10:11-0400 Systolic blood pressure 131 mm[Hg] Danish Dolce DPM FACFAS Work Phone: [facility] 09-01-2024 11:21-0400 Body height 165.1 cm Danish Dolce DPM FACFAS Work Phone: [facility] 09-01-2024 11:21-0400 Body mass index (BMI) [Ratio] 42.6 kg/m2 Danish Carballo DPM FACFAS Work Phone: [facility] 09-01-2024 11:21-0400 Body weight 116.12 kg Danish Carballo DPM FACFAS Work Phone: [facility] 09-01-2024 11:21-0400 Diastolic blood pressure 77 mm[Hg] Danish Deliciashahana DPM FACFAS Work Phone: [facility] 09-01-2024 11:21-0400 Heart rate 70 /min Danish Deliciashahana DPM FACFAS Work Phone: [facility] 09-01-2024 11:21-0400 Systolic blood pressure 129 mm[Hg] Danish Deliciashahana DPM FACFAS Work Phone: [facility] 05-04-2024 08:11-0400 Diastolic blood pressure 94 mm[Hg] Isela Noman [facility] 05-04-2024 08:11-0400 Mean blood pressure 124 mm[Hg] Isela Noman [facility] 05-04-2024 08:11-0400 Systolic blood pressure 184 mm[Hg] Mohamed Noman [facility] 05-04-2024 07:51-0400 Blood Pressure Location Mohwil Noman [facility] 05-04-2024 07:51-0400 Diastolic blood pressure 78 mm[Hg] Mohamed Noman [facility] 05-04-2024 07:51-0400 Heart rate 78 /min Mohamed Noman [facility] 05-04-2024 07:51-0400 SaO2% (BldA) [Mass fraction] 99 % Isela Noman [facility] 05-04-2024 07:51-0400 Systolic blood pressure 144 mm[Hg] Isela Tineo [facility] 04-08-2024 10:15-0400 Blood Pressure Location Ellen Butt [facility] 04-08-2024 10:15-0400 Body temperature 96.98 [degF] Ellen Butt [facility] 04-08-2024 10:15-0400 Diastolic blood pressure 72 mm[Hg] Ellenkhris Butt [facility] 04-08-2024 10:15-0400 Heart rate 79 /min Ellen Butt [facility] 04-08-2024 10:15-0400 SaO2% (BldA) [Mass fraction] 97 % Ellen Butt [facility] 04-08-2024 10:15-0400 Systolic blood pressure 130 mm[Hg] Ellen Butt [facility] 01-29-2024 08:05-0500 Blood Pressure Location Ellen Butt [facility] 01-29-2024 08:05-0500 Body temperature 98.06 [degF] Ellen Butt [facility] 01-29-2024 08:05-0500 Diastolic blood pressure 70 mm[Hg] Ellenkhris Butt [facility] 01-29-2024 08:05-0500 Heart rate 67 /min Ellen Butt [facility] 01-29-2024 08:05-0500 SaO2% (BldA) [Mass fraction] 97 % Ellenkhris Wardler [facility] 01-29-2024 08:05-0500 Systolic blood pressure 132 mm[Hg] Ellen Butt [facility] 12-27-2023 08:26-0500 Body height 165.1 cm Giuliano Garcia Eve Work Phone: [facility] 12-27-2023 08:26-0500 Body mass index (BMI) [Ratio] 42.77 kg/m2 Giuliano Bloomburg Eve Work Phone: [facility] 12-27-2023 08:26-0500 Body temperature 98.01 [degF] Giuliano [facility] Work Phone: [facility] 12-27-2023 08:26-0500 Body weight 116.57 kg Giuliano Bloomburg Eve Work Phone: [facility] 12-09-2023 08:58-0500 Blood Pressure Location Ellen Butt [facility] 12-09-2023 08:58-0500 Body temperature 97.52 [degF] Ellen Butt [facility] 12-09-2023 08:58-0500 Diastolic blood pressure 76 mm[Hg] Ellen Butt [facility] 12-09-2023 08:58-0500 Heart rate 63 /min Ellen Butt [facility] 12-09-2023 08:58-0500 SaO2% (BldA) [Mass fraction] 98 % Ellen Butt [facility] 12-09-2023 08:58-0500 Systolic blood pressure 138 mm[Hg] Ellen Butt [facility] 10-23-2023 10:40-0500 Blood Pressure Location Ellen Butt [facility] 10-23-2023 10:40-0500 Body temperature 97.7 [degF] Ellen Butt [facility] 10-23-2023 10:40-0500 Diastolic blood pressure 74 mm[Hg] Ellen Butt [facility] 10-23-2023 10:40-0500 Heart rate 75 /min Ellen Butt [facility] 10-23-2023 10:40-0500 SaO2% (BldA) [Mass fraction] 98 % Ellen Butt [facility] 10-23-2023 10:40-0500 Systolic blood pressure 136 mm[Hg] Ellen Butt [facility] 09-20-2023 10:30-0400 Body height Dipti Barajas [facility] Other 09-20-2023 10:30-0400 Body mass index (BMI) [Ratio] 42.1 kg/m2 Dipti Barajas [facility] 09-20-2023 10:30-0400 Body weight 114.76 kg Dipti Barajas [facility] Other 09-20-2023 10:30-0400 Diastolic blood pressure 74 mm[Hg] Dipti Barajas [facility] Other 09-20-2023 10:30-0400 SaO2% (BldA) [Mass fraction] 97 % Dipti Barajas [facility] Other 09-20-2023 10:30-0400 Systolic blood pressure 166 mm[Hg] Dipti Barajas [facility] 03-01-2023 11:43-0400 Diastolic blood pressure 90 mm[Hg] Ellen Butt [facility] 03-01-2023 11:43-0400 Mean blood pressure 109 mm[Hg] Ellen Butt [facility] 03-01-2023 11:43-0400 Systolic blood pressure 148 mm[Hg] Ellen Butt [facility] 08-15-2022 16:00-0400 Body height Dipti Barajas [facility] Other 08-15-2022 16:00-0400 Body mass index (BMI) [Ratio] 42.26 kg/m2 Dipti Barajas [facility] Other 08-15-2022 16:00-0400 Body temperature 97.7 [degF] Dipti Barajas [facility] Other 08-15-2022 16:00-0400 Body weight 115.21 kg Dipti Barajas [facility] Other 08-15-2022 16:00-0400 Diastolic blood pressure 78 mm[Hg] Dipti Barajas [facility] Other 08-15-2022 16:00-0400 SaO2% (BldA) [Mass fraction] 98 % Dipti Barajas [facility] Other 08-15-2022 16:00-0400 Systolic blood pressure 149 mm[Hg] Dipti Barajas [facility] Other 06-21-2022 15:03-0400 Blood Pressure Location Isela Noman [facility] 06-21-2022 15:03-0400 Diastolic blood pressure 78 mm[Hg] Mohwil Noman [facility] 06-21-2022 15:03-0400 Heart rate 80 /min Mohwil Noman [facility] 06-21-2022 15:03-0400 SaO2% (BldA) [Mass fraction] 98 % Isela Noman [facility] 06-21-2022 15:03-0400 Systolic blood pressure 131 mm[Hg] Mohwil Noman [facility] 05-21-2022 09:58-0400 Diastolic blood pressure 74 mm[Hg] Mohwil Noman [facility] 05-21-2022 09:58-0400 Mean blood pressure 105 mm[Hg] Isela Noman [facility] 05-21-2022 09:58-0400 Systolic blood pressure 167 mm[Hg] Isela Noman [facility] 05-21-2022 09:54-0400 Blood Pressure Location Mohwil Noman [facility] 05-21-2022 09:54-0400 Diastolic blood pressure 77 mm[Hg] Mohwil Noman [facility] 05-21-2022 09:54-0400 Heart rate 74 /min Mohamed Noman [facility] 05-21-2022 09:54-0400 SaO2% (BldA) [Mass fraction] 99 % Mohamed Noman [facility] 05-21-2022 09:54-0400 Systolic blood pressure 160 mm[Hg] Mohamed Noman [facility] 04-10-2022 11:38-0400 Blood Pressure Location Rupa FINK [facility] 04-10-2022 11:38-0400 Body temperature 98.6 [degF] Rupa FINK [facility] 04-10-2022 11:38-0400 Diastolic blood pressure 74 mm[Hg] Rupa FINK [facility] 04-10-2022 11:38-0400 Heart rate 73 /min Rupa FINK [facility] 04-10-2022 11:38-0400 SaO2% (BldA) [Mass fraction] 96 % Rupa FINK [facility] 04-10-2022 11:38-0400 Systolic blood pressure 130 mm[Hg] Rupa FINK [facility] Encounters Encounter Date Encounter Type Care Provider Facility Start: 09-24-2024 End: 09-24-2024 Bamboo flowsheet Frankie Morales DPM Work Phone: [facility] Start: 09-24-2024 End: 09-24-2024 Bamboo flowsheet Frankie Morales DPM Work Phone: [facility] Start: 09-24-2024 End: 09-24-2024 Patient encounter procedure Frankie Morales DPM Work Phone: [facility] Comment on above: Pain due to onychomy cosis of toenails of both feet (Primary Dx); Venous insufficiency Start: 09-24-2024 End: 09-24-2024 ambulatory FRANKIE MORALES Not Available Start: 09-16-2024 End: 09-16-2024 Bamboo flowsheet Danish D Dolce DPM FACFAS Work Phone: [facility] Start: 09-16-2024 End: 09-16-2024 Bamboo flowsheet Danish D Dolce DPM FACFAS Work Phone: [facility] Start: 09-16-2024 End: 09-16-2024 Postop follow up visit related to original px Danish D Dolce DPM FACFAS Work Phone: [facility] Comment on above: Achilles rupture, ri ght, initial encounter (Primary Dx) Start: 09-16-2024 End: 09-16-2024 ambulatory DANISH D DOLCE Not Available Start: 09-09-2024 End: 09-09-2024 Bamboo flowsheet Danish D Dolce DPM FACFAS Work Phone: [facility] Start: 09-09-2024 End: 09-09-2024 Bamboo flowsheet Danish D Dolce DPM FACFAS Work Phone: [facility] Start: 09-09-2024 End: 09-09-2024 Patient encounter procedure Danish D Dolce DPM FACFAS Work Phone: [facility] Comment on above: Achilles rupture, ri ght, initial encounter (Primary Dx); Right Achilles tendinitis; Contracture, ankle, left [M24.572] Start: 09-09-2024 End: 09-09-2024 ambulatory DANISH D DOLCE Not Available Start: 09-04-2024 End: 09-04-2024 Telephone encounter Nita Godinez RN [facility] Comment on above: Medication Reaction Start: 09-01-2024 End: 09-01-2024 Bamboo flowsheet Danish D Dolce DPM FACFAS Work Phone: [facility] Start: 09-01-2024 End: 09-01-2024 Bamboo flowsheet Danish Carballo DPM FACFAS Work Phone: [facility] Start: 09-01-2024 End: 09-01-2024 Patient encounter procedure Danish Carballo DPM FACFAS Work Phone: [facility] Comment on above: Achilles rupture, ri ght, initial encounter (Primary Dx) Start: 09-01-2024 End: 09-01-2024 ambulatory DANISH CARBALLO Not Available Start: 08-27-2024 End: 08-27-2024 Lab Drop off Danish Carballo [facility] Start: 08-27-2024 End: 08-27-2024 Telephone encounter Danish Carballo DPM FACFAS Work Phone: [facility] Start: 08-27-2024 End: 08-27-2024 ambulatory Danish Nesbittshahana [place] Start: 08-24-2024 End: 08-24-2024 ambulatory Aden Chester Facility:[facility] Start: 08-19-2024 End: 08-19-2024 ambulatory DANISH D DOLCE Facility: [facility] Start: 08-18-2024 End: 08-18-2024 ambulatory Tayler L Silvia Facility: [facility] Start: 07-24-2024 End: 07-24-2024 ambulatory DANISH Fran DOLCE Not Available Start: 07-17-2024 End: 07-17-2024 ambulatory Tayler L Silvia Facility: [facility] Start: 07-16-2024 End: 07-16-2024 ambulatory FRANKIE A BROWN Not Available Start: 06-25-2024 End: 06-25-2024 ambulatory FRANKIE A BROWN Not Available Start: 06-04-2024 End: 06-04-2024 ambulatory FRANKIE A BROWN Not Available Start: 05-14-2024 End: 05-14-2024 ambulatory FRANKIE A BROWN Not Available Start: 05-04-2024 End: 05-04-2024 ambulatory Ellen Butt Facility[facility] Start: 05-04-2024 End: 05-04-2024 Patient encounter procedure Isela Tineo [facility] Start: 04-30-2024 End: 04-30-2024 ambulatory FRANKIE MORALES Not Available Start: 04-09-2024 End: 04-09-2024 ambulatory FRANKIE MORALES Not Available Start: 04-08-2024 End: 04-08-2024 ambulatory Ellen Butt Facility:[facility] Start: 04-08-2024 End: 04-08-2024 Patient encounter procedure Ellen Butt [facility] Start: 04-08-2024 End: 04-08-2024 Well adult monitoring check done Ellen Butt [facility] Start: 04-03-2024 End: 04-03-2024 ambulatory GIULIANO Peters SONYA Not Available Start: 03-27-2024 End: 03-27-2024 ambulatory Eleln Butt [place] Start: 03-27-2024 End: 03-27-2024 Patient encounter procedure Ellen Butt [facility] Start: 01-30-2024 End: 01-30-2024 ambulatory FRANKIE MORALES Not Available Start: 01-29-2024 End: 01-29-2024 ambulatory Ellen Butt Facility:[facility] Start: 01-29-2024 End: 01-29-2024 Patient encounter procedure Ellen Butt [facility] Start: 01-29-2024 End: 01-29-2024 Well adult monitoring check done Ellen Butt [facility] Start: 12-27-2023 Chart abstracting Giuliano Garcia PA Work Phone: [facility] Start: 12-27-2023 End: 12-27-2023 Patient encounter procedure Giuliano Garcia PA Work Phone: [facility] Comment on above: 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, bilateral (Primary Dx) Start: 12-27-2023 End: 12-27-2023 ambulatory GIULIANO Peters SONYA Not Available Start: 12-09-2023 End: 12-09-2023 ambulatory Ellenrhina Butt Facility:[facility] Start: 12-09-2023 End: 12-09-2023 Patient encounter procedure Ellenkhris Butt [facility] Start: 11-21-2023 End: 11-21-2023 ambulatory FRANKIE MORALES Not Available Start: 10-31-2023 End: 10-31-2023 ambulatory FRANKIE MORALES Not Available Start: 10-23-2023 End: 10-23-2023 ambulatory Ellenkhris Butt Facility:[facility] Start: 10-23-2023 End: 10-23-2023 Patient encounter procedure Ellen Butt [facility] Start: 09-20-2023 Office outpatient vi sit 15 minutes Dipti [facility] Start: 09-20-2023 End: 09-20-2023 ambulatory [facility] Other Start: 04-19-2023 End: 04-19-2023 Patient encounter procedure Ellen Butt [facility] Start: 03-27-2023 End: 03-27-2023 Patient encounter procedure Ellen Butt [facility] Start: 03-01-2023 End: 03-01-2023 Patient encounter procedure Ellen Butt [facility] Start: 08-15-2022 End: 08-15-2022 Patient encounter procedure Rupa Fink Work Phone: [facility] Start: 08-15-2022 End: 08-15-2022 ambulatory Diptiemigdio Barajas Other [facility] Other Start: 08-15-2022 Office outpatient vi sit 25 minutes Diptiemigdio Barajas [facility] Start: 08-09-2022 End: 08-10-2022 ambulatory RUPA FINK Facility:[facility] Start: 06-21-2022 End: 06-21-2022 Patient encounter procedure Isela Tineo [facility] Start: 06-11-2022 End: 07-19-2022 ambulatory RUPA FINK Facility:[facility] Start: 05-21-2022 End: 05-21-2022 Patient encounter procedure Isela Tineo [facility] Start: 04-10-2022 End: 04-10-2022 Patient encounter procedure Rupa FINK [facility] Start: 03-01-2022 End: 03-02-2022 [...] colon [facility] Start: 01-29-2025 ambulatory Ambulatory Facility:[facility] Start: 12-03-2024 End: 12-03-2024 Patient encounter procedure 12/03/2024 10:10 AM EST Office Visit [facility] [address] [facility] [address] [place] [id number] Frankie Morales DPM [address] [facility] [address] [place] [address] [facility] Start: 10-28-2024 ambulatory Ambulatory Facility:[facility] Start: 10-02-2024 End: 10-02-2024 Patient encounter procedure 10/02/2024 10:30 AM EST Office Visit [facility] [address] [place] [address] Danish Carballo DPM FACFAS [address] [place] [address] [facility] Start: 09-24-2024 End: 09-24-2024 Patient encounter procedure [facility] Comment on above: Pain due to onychomy cosis of toenails of both feet (Primary Dx); Venous insufficiency Start: 09-16-2024 End: 09-16-2024 Patient encounter procedure [facility] Comment on above: Arrived Start: 09-09-2024 End: 09-09-2024 Patient encounter procedure [facility] Comment on above: Arrived Start: 09-01-2024 End: 09-01-2024 Patient encounter procedure [facility] Comment on above: Arrived Start: 08-27-2024 End: 08-27-2024 Patient encounter procedure 08/27/2024 1:00 PM EDT Procedure Visit [facility] Danish Carballo, DPM FACFAS [address] [place] [address] [facility] Start: 07-26-2024 Influenza vaccination Influenza Vacc ine (#1) [facility] Start: 01-30-2024 End: 01-30-2024 Patient encounter procedure 01/30/2024 8:50 AM EST Procedure Visit [facility] [address] [place] [id number] Frankie Morales, DPM [address] [facility] [address] [place] [address] [facility] Start: 12-27-2023 End: 12-27-2023 Patient encounter procedure 12/27/2023 8:30 AM EST Office Visit [facility] [address] [place] [address] Giuliano Garcia PA [address] [place] [address] [facility] Start: 1990 Screening for malign ant neoplasm of breast Mammogram [facility] Start: 1950 Screening for malign ant neoplasm of colon [facility] Immunizations Immunization Date Immunization Notes Care Provider Fa cility 09-16-2024 influenza virus vacc ine, unspecified formulation Frankie Morales DPM Work Phone: [facility] 08-01-2023 influenza virus vacc ine, unspecified formulation Ellen Butt [facility] 09-27-2022 SARS-CoV-2 (COVID-19 ) [id number] Ellen Butt [facility] Comment on above: Result Comment: 2022: [id number] 09-13-2022 influenza virus vacc ine, unspecified formulation Ellen Butt [facility] 06-28-2022 SARS-CoV-2 (COVID-19 ) mRNA-1273 vaccine Ellen Butt [facility] Comment on above: Result Comment: 2022: [id number] 10-05-2021 SARS-CoV-2 (COVID-19 ) mRNA-1273 vaccine Ellen Butt [facility] Comment on above: Result Comment: 2022: [id number] 09-06-2021 influenza virus vacc ine, unspecified formulation Rupa ALEKS [facility] 08-31-2021 influenza virus vacc ine, unspecified formulation Ellen Butt [facility] 02-15-2021 SARS-CoV-2 (COVID-19 ) mRNA-1273 vaccine Rupa ALEKS [facility] Comment on above: Result Comment: 2nd Vaccime 01-18-2021 SARS-CoV-2 (COVID-19 ) mRNA-1273 vaccine Rupa FINK [facility] Comment on above: Result Comment: 1st Vaccine 12-09-2020 zoster vaccine, live Stefany FINK [facility] 09-08-2020 influenza virus vacc ine, unspecified formulation Rupa FINK [facility] 09-08-2020 zoster vaccine, live Stefany FINK [facility] 07-23-2019 influenza virus vacc ine, unspecified formulation Ellen Missler [facility] 12-02-2018 pneumococcal polysaccharide vaccine, 23 valent Ellen Wardler [facility] 09-18-2018 influenza virus vacc ine, unspecified formulation Rupa FINK [facility] 09-27-2016 pneumococcal conjuga te vaccine, 13 valent Rupa FALLONTTPATO [facility] 09-20-2016 pneumococcal polysaccharide vaccine, 23 valent Rupa FINK [facility] 10-11-2015 influenza virus vacc ine, unspecified formulation Ellen ler [facility] 10-05-2013 influenza virus vacc ine, unspecified formulation Ellen Missler [facility] 03-25-2013 pneumococcal polysaccharide vaccine, 23 valent Ellen Missler [facility] 12-03-2012 influenza virus vacc ine, unspecified formulation Ellen Missler [facility] 11-05-2012 zoster vaccine, live Ellen ler [facility] Payers Date Payer Category Payer Private Health Insurance [employer] [id number] 2022 Unknown [employer] [id number] 2022-Present [address] [place] [address] [id number] 2022 Self-pay [id number] 2015 Medicare [id number] 1959 Medicare [id number] 1959 Unknown [id number] 1950 Unknown [id number] .1.545296.3.579.2. 593 1950 Unknown [id number] .1.419143.3.579.2. 593 1950 Unknown [id number] 01.10.840.1.572095.3.579.2. 593 1950 Unknown [id number] 01.10.840.1.529303.3.579.2. 593 1950 Unknown [id number] .1.349267.3.579.2. 727 1950 Unknown [id number] 01.10.840.1.203653.3.579.2. 727 1950 Unknown [id number] 2.16.840.1.719750.3.579.2. 1950 Unknown [id number] 2.16.840.1.404163.3.579.2. 1950 Unknown [id number] 2.16.840.1.763999.3.579.2. 1950 Unknown [id number] 2.16.840.1.897955.3.579.2. 1950 Unknown [id number] 2.16.840.1.829338.3.579.2. 1950 Unknown [id number] 2.16.840.1.838715.3.579.2. 1950 Unknown [id number] 2.16.840.1.541755.3.579.2. 1950 Unknown [id number] 2.16.840.1.418356.3.579.2. 1950 Unknown [id number] 2.16.840.1.808989.3.579.2. 1950 Unknown [id number] 2.16.840.1.646167.3.579.2. 1950 Unknown [id number] 2.16.840.1.675345.3.579.2. 1258 1950 Unknown [id number] 2.16.840.1.221018.3.579.2. 1258 1950 Unknown [id number] 2.16.840.1.617397.3.579.2. 1258 1950 Unknown [id number] 2.16.840.1.936848.3.579.2. 1258 1950 Unknown [id number] 2.16.840.1.639538.3.579.2. 1258 1950 Unknown [id number] 2.16.840.1.183062.3.579.2. 1258 1950 Unknown [id number] 2.16.840.1.838698.3.579.2. 1258 1950 Unknown [id number] 2.16.840.1.910150.3.579.2. 1258 1950 Unknown [id number] 2.16.840.1.677363.3.579.2. 1258 1950 Unknown [id number] 2.16.840.1.639398.3.579.2. 1258 1950 Unknown [id number] 2.16.840.1.658448.3.579.2. 1258 1950 Unknown [id number] 2.16.840.1.881321.3.579.2. 1258 1950 Unknown [id number] 2.16.840.1.098565.3.579.2. 1258 1950 Unknown [id number] 2.16.840.1.636810.3.579.2. 1258 1950 Unknown [id number] 2.16.840.1.902421.3.579.2. 1258 1950 Unknown [id number] 2.16.840.1.636854.3.579.2. 1258 1950 Unknown [id number] 2.16.840.1.434395.3.579.2. 1258 1950 Unknown [id number] 2.16.840.1.039885.3.579.2. 1258 1950 Unknown [id number] 2.16.840.1.150970.3.579.2. 1259 Unknown Standard LIfe Ins [id number] Unknown [id number] 2.16.840.1.817673.3.579.2. 531 Social History Date Type Detail Facility Start: 04-10-2022 End: 07-04-2023 Tobacco smoking status Never smoked tobacco (finding) [facility] Comment on above: denies use Tobacco smoking status Never [facility] Comment on above: denies use Start: 11-21-2023 End: 09-24-2024 Sex Assigned At Female [facility] Start: 1950 Sex Assigned At Female [facility] Start: 07-04-2023 Tobacco use and exposure Smokeless tobacco non-user [facility] Start: 11-21-2023 End: 09-24-2024 Alcohol intake Lifetime non-drinker (finding) [facility] Start: 11-21-2023 End: 09-24-2024 History of Social function [facility] Start: 1950 Sex Assigned At Not on file [facility] NEGATED: Highlighted rowStart: NINF History of tobacco use Passive smoker [facility] Medical Equipment Procedure Code Equipment Code Equipment Origin al Text Equipment Identifier Dates [id number] 100 FDA Start: 11-01-2020 {[id number] FDA Start: 11-15-2020 [employer]E [employer] FDA Start: 10-15-2018 Functional Status Date Assessment Result Facility 05-04-2024 Functional Status No [facility] 04-08-2024 Functional Status N/A [facility] 01-29-2024 Functional Status N/A [facility] 12-09-2023 Functional Status N/A [facility] 10-23-2023 Functional Status N/A [facility] 06-21-2022 Functional Status No [facility] 05-21-2022 Functional Status No [facility] Clinical Notes 10-02-2021 to 09-24-2024 Frankie Morales DPM - 09/24/2024 9:50 AM EDTMarc D IRISH Carballo FACSUMI - 09/16/2024 10:00 AM EDTMarc D IRISH Carballo FACFAS - 09/09/2024 10:10 AM EDTMarc D IRISH Carballo FACFAS - 09/01/2024 11:00 AM EDT Note Date & Type Note Facility 09-24-2024 History of Presen t illness Narrative Patient: Sandee Dai : 1950 PCP: Bello Davis MD SUBJECTIVE Patient presents today with a CC of elongated, thick nails. Pt states nails have been elongated and thick for many years and cause pain with ambulation in shoegear. Pt has tried previous treatment with minimal relief. Pt presents today for nail care and treatment. Pt also has history of venous stasis to b/l lower extremities. Pt also has hx of recent right achilles tendon repair and states positive improvement in wearing walking boot Allergies: Allergies Allergen Reactions Alendronate Hives and Rash Other Reaction(s): Redness of Skin Past Medical History: Past Medical History: Diagnosis Date Achilles tendon contracture right At risk for falls Disorder of right Achilles tendon GERD (gastroesophageal reflux disease) Hallux rigidus, right foot Hypertension (CMS/HCC) Obesity (BMI 30-39.9) OM (onychomycosis) Medications: Current Outpatient Medications: atorvastatin (Lipitor) 10 MG tablet, Take 10 mg by mouth in the morning., Disp: , Rfl: Calcium Carb-Cholecalciferol (CALCIUM + VITAMIN D3 PO), Calcium + Vitamin D3, Disp: , Rfl: Calcium Carb-Cholecalciferol (Calcium + Vitamin D3) 500-10 MG-MCG chewable tablet, Calcium + Vitamin D3, Disp: , Rfl: famotidine (Pepcid) 40 MG tablet, Take 40 mg by mouth, Disp: , Rfl: Glucosamine 500 MG capsule, Glucosamine, Disp: , Rfl: Glucosamine HCl (GLUCOSAMINE PO), Refills(s) 0, Disp: , Rfl: losartan (Cozaar) 25 MG tablet, 1 (one) time each day at the same time., Disp: , Rfl: methylPREDNISolone (Medrol Dospak) 4 MG tablets, Follow schedule on MEDROL PACK package instructions to be used as directed, Disp: 21 tablet, Rfl: 0 Multiple Vitamin (MULTIVITAMIN ADULT PO), Multivitamin, Disp: , Rfl: omega-3 (FISH OIL) 300 MG capsule, Fish Oil, Disp: , Rfl: omeprazole (PriLOSEC) [address] capsule, Take 40 mg by mouth., Disp: , Rfl: Pediatric Multivitamins-Fl (MultiVitamin + Fluoride) 0.25 MG chewable tablet, Multivitamin, Disp: , Rfl: tobramycin-dexAMETHasone (Tobradex) ophthalmic suspension, INSTILL 1 DROP INTO RIGHT EYE EVERY 3 HOURS FOR 1 DAYS THEN 1 DROP 4 TIMES A DAY, Disp: , Rfl: Social History: Social History Socioeconomic History Marital status: Spouse name: Not on file Number of children: Not on file Years of education: Not on file Highest education level: Not on file Occupational History Not on file Tobacco Use Smoking status: Never Passive exposure: Never Smokeless tobacco: Never Vaping Use Vaping status: Never Used Substance and Sexual Activity Alcohol use: Never Drug use: Never Sexual activity: Defer Partners: Decline to Answer Other Topics Concern Not on file Social History Narrative Not on file Social Drivers of Health Financial Resource Strain: Not on file Food Insecurity: Not on file Transportation Needs: Not on file Physical Activity: Not on file Stress: Not on file Social Connections: Not on file Intimate Partner Violence: Not on file Housing Stability: Not on file ROS: General: denies fever, chills, fatigue, malaise GI: denies abdominal pain or ulcerations with anti-inflammatory medication OBJECTIVE LE EXAM: DERM: Elongated thick yellow crumbly nails digits 1 through 10. Positive hair growth b/l feet. +1 pitting edema to bilateral feet ankles Right posterior heel in area of sx has small scab with negative drainage VASC: Positive palpable pedal pulses bilaterally NEURO: Gross sensation intact to bilateral feet ORTHO: Positive pain on palpation to nails 1 through 10 Minimal POP to right achilles with positive PF right. ASSESSMENT 1. Pain due to onychomycosis of toenails of both feet 2. Venous insufficiency PLAN Patient to continue with oral anti - inflammatories as needed for pain and recommended OTC medications such as tylenol or Ibuprofen Debride nails in length and thickness digits 1 through 10 Patient continue walking boot follow up with Dr. Brenna Morales DPM documented in this encounter [facility] 09-16-2024 History of Presen t illness Narrative Images from the original note were not included. Patient: Sandee Dai : 1950 PCP: Bello Davis MD SUBJECTIVE This is a 74 y.o. female that presents today The patient is here status post Repair of the Achilles tendon right procedure. Postop week 3. They deny fevers, chills, nausea, vomiting, calf pain and shortness of breath. Pain level is being managed with ice elevation and pain medication. They have been relatively compliant with her postoperative care. Allergies: Allergies Allergen Reactions Alendronate Hives and Rash Other Reaction(s): Redness of Skin Past Medical History: Past Medical History: Diagnosis Date Achilles tendon contracture right At risk for falls Disorder of right Achilles tendon GERD (gastroesophageal reflux disease) Hallux rigidus, right foot Hypertension (CMS/HCC) Obesity (BMI 30-39.9) OM (onychomycosis) Medications: Current Outpatient Medications: atorvastatin (Lipitor) 10 MG tablet, Take 10 mg by mouth in the morning., Disp: , Rfl: Calcium Carb-Cholecalciferol (CALCIUM + VITAMIN D3 PO), Calcium + Vitamin D3, Disp: , Rfl: Calcium Carb-Cholecalciferol (Calcium + Vitamin D3) 500-10 MG-MCG chewable tablet, Calcium + Vitamin D3, Disp: , Rfl: famotidine (Pepcid) 40 MG tablet, Take 40 mg by mouth, Disp: , Rfl: Glucosamine 500 MG capsule, Glucosamine, Disp: , Rfl: Glucosamine HCl (GLUCOSAMINE PO), Refills(s) 0, Disp: , Rfl: losartan (Cozaar) 25 MG tablet, 1 (one) time each day at the same time., Disp: , Rfl: methylPREDNISolone (Medrol Dospak) 4 MG tablets, Follow schedule on MEDROL PACK package instructions to be used as directed, Disp: 21 tablet, Rfl: 0 Multiple Vitamin (MULTIVITAMIN ADULT PO), Multivitamin, Disp: , Rfl: omega-3 (FISH OIL) 300 MG capsule, Fish Oil, Disp: , Rfl: omeprazole (PriLOSEC) [address] capsule, Take 40 mg by mouth., Disp: , Rfl: Pediatric Multivitamins-Fl (MultiVitamin + Fluoride) 0.25 MG chewable tablet, Multivitamin, Disp: , Rfl: tobramycin-dexAMETHasone (Tobradex) ophthalmic suspension, INSTILL 1 DROP INTO RIGHT EYE EVERY 3 HOURS FOR 1 DAYS THEN 1 DROP 4 TIMES A DAY, Disp: , Rfl: Review of systems: Constitutional: Denies fever, chills, nausea, vomiting GI: Denies abdominal pain, cramping, loose stool, gastric ulcers Musculoskeletal: Denies low back pain, knee pain, systemic arthritis Neurologic: Denies burning, tingling, transient paralysis OBJECTIVE Physical Examination: DERM: Positive hair growth to b/l feet with good skin turgor noted. Negative openings in skin VASC: DP /PT were palpable bilateral. Capillary refill time < 3 seconds Digits 1-5 bilateral NEURO: [place] Garfield 5.07 monofilament was intact B/L. Vibratory sensation was intact B/L Musculoskeletal: Muscle strength was +5 over 5 all intrinsic and extrinsic muscles tested. Negative Homans test noted Surgical site evaluation: The incision site is healing well without signs infection. Minimal swelling noted. Consistent with the patient's level of surgery consistent with time frame postoperatively. ASSESSMENT 1. Achilles rupture, right, initial encounter PLAN Patient was progressing very well. Incision site is well coapted. She has been walking without her pneumatic walking boot against medical orders. She is to continue with the pneumatic walking boot for 2 more weeks follow up with me in 2 weeks for reassessment IRISH Davila documented in this encounter [facility] 09-09-2024 History of Presen t illness Narrative Images from the original note were not included. Patient: Sandee Dai : 1950 PCP: Bello Davis MD SUBJECTIVE This is a 74 y.o. female that presents today The patient is here status post For pair of the Achilles tendon right procedure. Postop week 2. They deny fevers, chills, nausea, vomiting, calf pain and shortness of breath. Pain level is being managed with ice elevation and pain medication. They have been relatively compliant with her postoperative care. Allergies: Allergies Allergen Reactions Alendronate Hives and Rash Other Reaction(s): Redness of Skin Past Medical History: Past Medical History: Diagnosis Date Achilles tendon contracture right At risk for falls Disorder of right Achilles tendon GERD (gastroesophageal reflux disease) Hallux rigidus, right foot Hypertension (CMS/HCC) Obesity (BMI 30-39.9) OM (onychomycosis) Medications: Current Outpatient Medications: amoxicillin-clavulanate (Augmentin) 875-125 MG tablet, Take 1 tablet (875 mg) by mouth in the morning and 1 tablet (875 mg) in the evening. Take after meals. Do all this for 10 days. Take 1 pill p.o. b.I.d. for 10 days., Disp: 20 tablet, Rfl: 0 atorvastatin (Lipitor) 10 MG tablet, Take 10 mg by mouth in the morning., Disp: , Rfl: Calcium Carb-Cholecalciferol (CALCIUM + VITAMIN D3 PO), Calcium + Vitamin D3, Disp: , Rfl: Calcium Carb-Cholecalciferol (Calcium + Vitamin D3) 500-10 MG-MCG chewable tablet, Calcium + Vitamin D3, Disp: , Rfl: clindamycin (Cleocin) 300 MG capsule, Take 1 capsule (300 mg) by mouth in the morning and 1 capsule (300 mg) in the evening and 1 capsule (300 mg) before bedtime. Do all this for 10 days. TAKE 1 PILL P.O. T.I.D. FOR 10 DAYS., Disp: 30 capsule, Rfl: 0 famotidine (Pepcid) 40 MG tablet, Take 40 mg by mouth, Disp: , Rfl: Glucosamine 500 MG capsule, Glucosamine, Disp: , Rfl: Glucosamine HCl (GLUCOSAMINE PO), Refills(s) 0, Disp: , Rfl: losartan (Cozaar) 25 MG tablet, 1 (one) time each day at the same time., Disp: , Rfl: methylPREDNISolone (Medrol Dospak) 4 MG tablets, Follow schedule on MEDROL PACK package instructions to be used as directed, Disp: 21 tablet, Rfl: 0 Multiple Vitamin (MULTIVITAMIN ADULT PO), Multivitamin, Disp: , Rfl: omega-3 (FISH OIL) 300 MG capsule, Fish Oil, Disp: , Rfl: omeprazole (PriLOSEC) [address] capsule, Take 40 mg by mouth., Disp: , Rfl: Pediatric Multivitamins-Fl (MultiVitamin + Fluoride) 0.25 MG chewable tablet, Multivitamin, Disp: , Rfl: tobramycin-dexAMETHasone (Tobradex) ophthalmic suspension, INSTILL 1 DROP INTO RIGHT EYE EVERY 3 HOURS FOR 1 DAYS THEN 1 DROP 4 TIMES A DAY, Disp: , Rfl: Review of systems: Constitutional: Denies fever, chills, nausea, vomiting GI: Denies abdominal pain, cramping, loose stool, gastric ulcers Musculoskeletal: Denies low back pain, knee pain, systemic arthritis Neurologic: Denies burning, tingling, transient paralysis OBJECTIVE Physical Examination: DERM: Positive hair growth to b/l feet with good skin turgor noted. Negative openings in skin VASC: DP /PT were palpable bilateral. Capillary refill time < 3 seconds Digits 1-5 bilateral NEURO: [place] Garfield 5.07 monofilament was intact B/L. Vibratory sensation was intact B/L Musculoskeletal: Muscle strength was +5 over 5 all intrinsic and extrinsic muscles tested. Negative Homans test noted Surgical site evaluation: The incision site is healing well without signs infection. Minimal swelling noted. Consistent with the patient's level of surgery consistent with time frame postoperatively. Sutures remain intact without signs of dehiscence. ASSESSMENT 1. Achilles rupture, right, initial encounter 2. Right Achilles tendinitis PLAN Stures removed today patient has been noncompliant with the weight-bearing status wishes to continue to ambulate she wishes to utilize a pneumatic walking boot she has a very old 1 is worn out from 5 years ago she will require a new 1 today. I applied a dry sterile dressing with a [place] compressive type dressing to the incision site with Steri-Strips recommended she start partial weight-bearing in a pneumatic walking boot. The patient was dispensed 1 pneumatic walking boot ([id number]). The pneumatic device was necessary to provide immobilization in compression during the healing process. The foam liner will in straps were adjusted to ensure proper fit. There were educated on the use of the device. IRISH Davila documented in this encounter [facility] 09-04-2024 Telephone encounter Note Patient said that the Augmentin is causing nausea/diarrhea. She asked if there was something else you could send in or if you wanted her to stop the medication. [facility] 09-04-2024 Miscellaneous Notes Patient said that the Augmentin is causing nausea/diarrhea. She asked if there was something else you could send in or if you wanted her to stop the medication. documented in this encounter [facility] 09-01-2024 History of Presen t illness Narrative Images from the original note were not included. Patient: Sandee Dai : 1950 PCP: Bello Davis MD SUBJECTIVE This is a 74 y.o. female that presents today The patient is here status post For pair of the Achilles tendon right procedure. Postop week 1. They deny fevers, chills, nausea, vomiting, calf pain and shortness of breath. Pain level is being managed with ice elevation and pain medication. They have been relatively compliant with her postoperative care. Allergies: Allergies Allergen Reactions Alendronate Hives and Rash Other Reaction(s): Redness of Skin Past Medical History: Past Medical History: Diagnosis Date Achilles tendon contracture right At risk for falls Disorder of right Achilles tendon GERD (gastroesophageal reflux disease) Hallux rigidus, right foot Hypertension (CMS/HCC) Obesity (BMI 30-39.9) OM (onychomycosis) Medications: Current Outpatient Medications: amoxicillin-clavulanate (Augmentin) 875-125 MG tablet, Take 1 tablet (875 mg) by mouth in the morning and 1 tablet (875 mg) in the evening. Take after meals. Do all this for 10 days. Take 1 pill p.o. b.I.d. for 10 days., Disp: 20 tablet, Rfl: 0 atorvastatin (Lipitor) 10 MG tablet, Take 10 mg by mouth in the morning., Disp: , Rfl: Calcium Carb-Cholecalciferol (CALCIUM + VITAMIN D3 PO), Calcium + Vitamin D3, Disp: , Rfl: Calcium Carb-Cholecalciferol (Calcium + Vitamin D3) 500-10 MG-MCG chewable tablet, Calcium + Vitamin D3, Disp: , Rfl: famotidine (Pepcid) 40 MG tablet, Take 40 mg by mouth, Disp: , Rfl: Glucosamine 500 MG capsule, Glucosamine, Disp: , Rfl: Glucosamine HCl (GLUCOSAMINE PO), Refills(s) 0, Disp: , Rfl: losartan (Cozaar) 25 MG tablet, 1 (one) time each day at the same time., Disp: , Rfl: methylPREDNISolone (Medrol Dospak) 4 MG tablets, Follow schedule on MEDROL PACK package instructions to be used as directed, Disp: 21 tablet, Rfl: 0 Multiple Vitamin (MULTIVITAMIN ADULT PO), Multivitamin, Disp: , Rfl: omega-3 (FISH OIL) 300 MG capsule, Fish Oil, Disp: , Rfl: omeprazole (PriLOSEC) [address] capsule, Take 40 mg by mouth., Disp: , Rfl: oxyCODONE-acetaminophen (Percocet) 5-325 MG tablet, Take 1 tablet by mouth every 6 (six) hours if needed for severe pain for up to 5 days, Disp: 20 tablet, Rfl: 0 Pediatric Multivitamins-Fl (MultiVitamin + Fluoride) 0.25 MG chewable tablet, Multivitamin, Disp: , Rfl: tobramycin-dexAMETHasone (Tobradex) ophthalmic suspension, INSTILL 1 DROP INTO RIGHT EYE EVERY 3 HOURS FOR 1 DAYS THEN 1 DROP 4 TIMES A DAY, Disp: , Rfl: Review of systems: Constitutional: Denies fever, chills, nausea, vomiting GI: Denies abdominal pain, cramping, loose stool, gastric ulcers Musculoskeletal: Denies low back pain, knee pain, systemic arthritis Neurologic: Denies burning, tingling, transient paralysis OBJECTIVE Physical Examination: DERM: Positive hair growth to b/l feet with good skin turgor noted. Negative openings in skin VASC: DP /PT were palpable bilateral. Capillary refill time < 3 seconds Digits 1-5 bilateral NEURO: [place] Garfield 5.07 monofilament was intact B/L. Vibratory sensation was intact B/L Musculoskeletal: Muscle strength was +5 over 5 all intrinsic and extrinsic muscles tested. Negative Homans test noted Surgical site evaluation: The incision site is healing well without signs infection. Minimal swelling noted. Consistent with the patient's level of surgery consistent with time frame postoperatively. Sutures remain intact without signs of dehiscence. ASSESSMENT 1. Achilles rupture, right, initial encounter PLAN Today we applied a dry sterile dressing with betadine to the incision site. Covered the incision with 4x4s, Kerlix and John bandage. The Patient is to continue ice and elevation on a regular basis. They were reminded to remain compliant with her weight-bearing status in the ambulatory surgical device. I see the patient back to her [place] compressive dressing started her on Augmentin 875 b.I.d. for 10 days follow up 1 week IRISH Davila documented in this encounter [facility] 08-27-2024 Telephone encounter Note rxsx [facility] 08-27-2024 Miscellaneous Notes rxsx documented in this encounter [facility] 08-24-2024 Note Patient Education Nutrition BMI for Adults Body mass index (BMI) is a number found using a person's weight and height. BMI can help tell how much of a person's weight is made up of fat. BMI does not measure body fat directly. It is used instead of tests that directly measure body fat, which can be difficult and expensive. What are BMI measurements used for? BMI is useful to: ? Find out if your weight puts you at higher risk for medical problems. ? Help recommend changes, such as in diet and exercise. This can help you reach a healthy weight. BMI screening can be done again to see if these changes are working. How is BMI calculated? Your height and weight are measured. The BMI is found from those numbers. This can be done with U.S. or metric measurements. Note that charts and online BMI calculators are available to help you find your BMI quickly and easily without doing these calculations. To calculate your BMI in U.S. measurements: 1. Measure your weight in pounds (lb). 2. Multiply the number of pounds by 703. ? So, for an adult who weighs 150 lb, multiply that number by 703: 150 x 703, which equals 105,450. 3. Measure your height in inches. Then multiply that number by itself to get a measurement called inches squared. ? So, for an adult who is 70 inches tall, the inches squared measurement is 70 inches x 70 inches, which equals 4,900 inches squared. 4. Divide the total from step 2 (number of lb x 703) by the total from step 3 (inches squared): 105,450 ? 4,900 = 21.5. This is your BMI. To calculate your BMI in metric measurements: 1. Measure your weight in kilograms (kg). ? For this example, the weight is 70 kg. 2. Measure your height in meters (m). Then multiply that number by itself to get a measurement called meters squared. ? So, for an adult who is 1.75 m tall, the meters squared measurement is 1.75 m x 1.75 m, which equals 3.1 meters squared. 3. Divide the number of kilograms (your weight) by the meters squared number. In this example: 70 ? 3.1 = 22.6. This is your BMI. What do the results mean? BMI charts are used to see if you are underweight, normal weight, overweight, or obese. The following guidelines will be used: ? Underweight: BMI less than 18.5. ? Normal weight: BMI between 18.5 and 24.9. ? Overweight: BMI between 25 and 29.9. ? Obese: BMI of 30 or above. BMI is a tool and cannot diagnose a condition. Talk with your health care provider about what your BMI means for you. Keep these notes in mind: ? Weight includes fat and muscle. Someone with a muscular build, such as an athlete, may have a BMI that is higher than 24.9. In cases like these, BMI is not a correct measure of body fat. ? If you have a BMI of 25 or higher, your provider may need to do more testing to find out if excess body fat is the cause. ? BMI is measured the same way for males and females. Females usually have more body fat than males of the same height and weight. Where to find more information For more information about BMI, including tools to quickly find your BMI, go to: ? Centers for Disease Control and Prevention: cdc.gov ? [place] Heart Association: heart.org ? National Heart, Lung, and Blood [place]: nhlbi.nih.gov This information is not intended to replace advice given to you by your health care provider. Make sure you discuss any questions you have with your health care provider. Document Revised: 08/01/2023 Document Reviewed: 07/25/2023 Elsevier Patient Education ? 2023 [facility] 03-18-2024 Hospital Discharg e instructions Patient Education 03/18/2024 12:27:56 Health Maintenance, [...] provider. Document Revised: 04/02/2022 Document Reviewed: 04/02/2022 [employer] Patient Education 2022 [employer]. 03/18/2024 12:27:54 Health Maintenance After Age 65 [...] of the medicines you are taking, including [id number]-[id number] medicines. Ask your health care provider about [...] feel dizzy, tiredness (fatigue), or off-balance. Take odfa-ukw-knbekse and prescription medicines only as told by [...] provider. Document Revised: 04/02/2022 Document Reviewed: 04/02/2022 [employer] Patient Education 2022 [employer]. 03/18/2024 12:27:52 Dyslipidemia Dyslipidemia Dyslipidemia is an [...] quitting, ask your health care provider. Take [id number]-otbiacf and prescription medicines only as told by [...] provider. Document Revised: 01/15/2022 Document Reviewed: 01/15/2022 [employer] Patient Education 2022 [employer]. 03/18/2024 12:27:51 Diabetes Mellitus and Nutrition, Adult [...] Carrots. Green beans. Tomatoes. Peppers. Onions. Cucumbers. [place] sprouts. Grains Whole grains, such as whole-wheat [...] meet with a certified diabetes care and education administrative assistant? Do I need to meet with a dietitian? What number can I call if I have questions? When are the best times to check my blood glucose? Where to find more information: [place] Diabetes Association: diabetes.org Academy of Nutrition and Dietetics: eatright.org National [place] of Diabetes and Digestive and Kidney Diseases: [...] provider. Document Revised: 06/14/2021 Document Reviewed: 06/14/2021 [employer] Patient Education 2022 [employer]. 03/18/2024 12:27:50 DASH Eating Plan DASH Eating [...] Dairy Whole or 2% milk, cream, and byyp-bhg-ccmw. Whole or full-fat cream cheese. Whole-fat or sweetened yogurt. Full-fat cheese. Nondairy creamers. Whipped toppings. Processed cheese and cheese spreads. Fats and oils Butter. Stick margarine. Lard. Shortening. Ghee. [place] fat. Tropical oils, such as coconut, palm kernel, or palm oil. Seasonings and condiments Onion salt, garlic salt, seasoned salt, table salt, and sea salt. [facility] Center[facility] sauce. Tartar sauce. Barbecue sauce. Teriyaki sauce. [...] more information National Heart, Lung, and Blood [place]: www.nhlbi.nih.gov [place] Heart Association: www.heart.org Academy of Nutrition and [...] provider. Document Revised: 10/14/2020 Document Reviewed: 10/14/2020 [employer] Patient Education 2022 [employer]. 03/18/2024 12:27:49 Blood Glucose Monitoring, Adult Blood [...] have. Where to find more information The [place] Diabetes Association: www.diabetes.org The Association of Diabetes [...] provider. Document Revised: 08/09/2021 Document Reviewed: 08/09/2021 [employer] Patient Education 2022 [employer]. Follow Up Care 03/27/2023 08:59:37 With:Ellen Carlos Address: [address] [place] [address], [facility] [place] [address]- When:Within 6 Month(s) Comments:[facility] 01-29-2024 Hospital Discharg e instructions Patient Education 01/29/2024 09:22:42 Prediabetes Prediabetes [...] hard liquor (44 mL). General instructions Take fpfd-eju-jedqmqq and prescription medicines only as told by [...] is important. Where to find more information [place] [employer]: www.diabetes.org Academy of Nutrition and Dietetics: www.eatright.org [place] Heart Association: www.heart.org Contact a health care [...] provider. Document Revised: 02/09/2021 Document Reviewed: 02/09/2021 [employer] Patient Education 2022 [employer]onto. 01/29/2024 09:22:38 Exercising to Lose Weight Exercising [...] care provider or diet and nutrition services aide (dietitian). This may include: ?Eating fewer calories. [...] provider. Document Revised: 01/07/2022 Document Reviewed: 01/07/2022 [employer] Patient Education 2022 Sponto. 01/29/2024 09:22:35 Cooking With Less Salt Cooking [...] salt. Use sodium-free baking soda when baking. [place], braise, or roast foods to add flavor with less salt. Avoid adding salt to pasta, rice, or hot cereals. Drain and rinse canned vegetables, beans, and meat before use. Avoid adding salt when cooking sweets and desserts. Cook with low-sodium ingredients. What foods are high in sodium? Vegetables Regular canned vegetables (not low-sodium or reduced-sodium). Sauerkraut, pickled vegetables, and relishes. Olives. Hong Konger fries. Onion rings. Regular canned tomato sauce [...] Soy milk. Yogurt. Low-sodium cheeses, such as Hungarian, Weston Efrem, mozzarella, and ricotta. Sherbet or ice [...] foods you can pair it with. Herbs [place] leaves Soups, meat and vegetable dishes, and spaghetti sauce. Basil Barbadian dishes, soups, pasta, and fish dishes. Cilantro Meat, poultry, and vegetable dishes. [place] powder Marinades and Malawian dishes. Chives Salad dressings and potato dishes. Cumin Malawian dishes, couscous, and meat dishes. Dill Fish dishes, sauces, and salads. Fennel Meat and vegetable dishes, breads, and cookies. Garlic (do not use garlic salt) Barbadian dishes, meat dishes, salad dressings, and sauces. Marjoram Soups, potato dishes, and meat dishes. Oregano Pizza and spaghetti sauce. Parsley Salads, soups, pasta, and meat dishes. Kari Barbadian dishes, salad dressings, soups, and red meats. [...] provider. Document Revised: 11/02/2020 Document Reviewed: 11/02/2020 [employer] Patient Education 2022 Sponto. 01/29/2024 09:22:34 BMI for Adults BMI for [...] numbers. This can be done either in [place] (U.[place] or metric measurements. Note that charts and online BMI calculators are available to help you find your BMI quickly and easily without having to do these calculations yourself. To calculate your BMI in [place] ([place] measurements: 1.Measure your weight in pounds [...] Centers for Disease Control and Prevention: www.cdc.gov [place] Heart Association: www.heart.org National Heart, Lung, and Blood [place]: www.nhlbi.nih.gov Summary Body mass index (BMI) is a number that is calculated from a person's weight and height. BMI may help estimate how much of a person's weight is composed of fat. BMI can help identify those who may be at higher risk for certain medical problems. BMI can be measured using Sri Lankan measurements or metric measurements. BMI charts are used to identify whether you are underweight, normal weight, overweight, or obese. This information is not intended to replace advice given to you by your health care provider. Make sure you discuss any questions you have with your health care provider. Document Revised: 08/03/2020 Document Reviewed: 06/10/2020 [employer] Patient Education 2022 Sponto. [facility] 12-27-2023 History of Presen t illness Narrative Associated Order(s): L Inj/Asp: bilateral knee Post-Procedure Diagnose(s): Primary osteoarthritis of knees, bilateral L Inj/Asp: bilateral knee on 12/27/2023 9:02 AM Indications: pain Details: 25 G needle Medications (Right): 12 mg betamethasone acetate-betamethasone sodium phosphate 6 (3-3) MG/ML Medications (Left): 12 mg betamethasone acetate-betamethasone sodium phosphate 6 (3-3) MG/ML Consent was given by the patient. GENERAL HISTORY AND PHYSICAL: NAME: Sandee Dai : 1950 HISTORY OF PRESENT ILLNESS: Sandee Dai is an 73 y.o. female is here for orthopedic evaluation bilateral knee pain and requesting cortisone injections today. We did talked about authorization last time and getting her in to see Dr. Spenser Morales and shortly after she had her last injection she developed some pain and was then seen by Dr. Cooper Morales treated for Achilles tendinitis placed in a boot and wanted to hold off on trying the gel injections and cancel her appointment with Dr. Pablo Morales PAST MEDICAL HISTORY: Past Medical History: Diagnosis [...] the office. Patient has bilateral medial compartments zrnp-yr-ebrw as well as patellofemoral disease no evidence of acute fracture or bony tumor seen. XR knee 1 or 2 views left Bilateral standing PA, bilateral sunrise, and lateral of the affected knee were imaged today in the office. Patient has bilateral medial compartments bxft-zv-rtzw as well as patellofemoral disease no evidence [...] 12 months. May consider injections with Dr. Morales of hyaluronic acid as a 2nd line of treatment options prior to considering total knee arthroplasty. Cold pack to both knees for 20 minutes several times a day may be helpful. May consider using a cane for stability when ambulating distances. Call for any concerns. Tylenol for discomfort. DONAL Peck documented in this encounter [facility] 12-27-2023 Instructions DONAL Peck - 12/27/2023 8:30 AM EST Would expect 48 hours up to 1 week for improvement after getting cortisone injections in both knees today. May repeat injections as soon as 4 weeks but can only receive it 2 more times in each knee for the next 12 months. May consider injections with Dr. Morales of hyaluronic acid as a 2nd line of treatment options prior to considering total knee arthroplasty. Cold pack to both knees for 20 minutes several times a day may be helpful. May consider using a cane for stability when ambulating distances. Call for any concerns. Tylenol for discomfort. documented in this encounter [facility] 11-23-2023 Hospital Discharg e instructions Patient Education 11/23/2023 14:46:55 Heartburn Heartburn [...] powder, vinegar, hot sauces, and barbecue sauce. ?[place] fruit juices and citrus fruits, such as oranges, crystal, and limes. ?Tomato-based foods, such as red sauce, chili, salsa, and pizza with red sauce. ?Fried and fatty foods, such as donuts, polish fries, potato chips, and high-fat dressings. ?High-fat [...] ask your health care provider. Medicines Take ioka-kov-rnyhmon and prescription medicines only as told by [...] told by your health care provider. Take voqy-pef-bpysaiw and prescription medicines only as told by [...] provider. Document Revised: 05/17/2021 Document Reviewed: 05/17/2021 [employer] Patient Education 2022 Sponto. 11/23/2023 14:46:54 BMI for Adults BMI for [...] numbers. This can be done either in [place] (U.S[place] or metric measurements. Note that charts and online BMI calculators are available to help you find your BMI quickly and easily without having to do these calculations yourself. To calculate your BMI in [place]an ([place] measurements: 1.Measure your weight in pounds [...] Centers for Disease Control and Prevention: www.cdc.gov [place] Heart Association: www.heart.org National Heart, Lung, and Blood [place]: www.nhlbi.nih.gov Summary Body mass index (BMI) is a number that is calculated from a person's weight and height. BMI may help estimate how much of a person's weight is composed of fat. BMI can help identify those who may be at higher risk for certain medical problems. BMI can be measured using Sri Lankan measurements or metric measurements. BMI charts are used to identify whether you are underweight, normal weight, overweight, or obese. This information is not intended to replace advice given to you by your health care provider. Make sure you discuss any questions you have with your health care provider. Document Revised: 08/03/2020 Document Reviewed: 06/10/2020 [employer] Patient Education 2022 Sponto. Follow Up Care 10/23/2023 11:17:39 With:Ellen Carlos Address: [address] [place] [address] [address] [phone] When:Within 6 Month(s) Comments:[facility] 10-22-2023 Hospital Discharg e instructions Patient Education 10/22/2023 17:21:05 Gas and [...] care provider. General instructions Give your child pzrc-fkb-klkpyos and prescription medicines only as told by [...] provider. Document Revised: 12/20/2021 Document Reviewed: 12/20/2021 [employer] Patient Education 2022 Sponto. 10/22/2023 17:21:04 Abdominal Bloating Abdominal Bloating When [...] drinks. ?Hard candy. ?Chewing gum. Medicines Take zgds-ulf-smhrxws and prescription medicines only as told by [...] provider. Document Revised: 06/13/2021 Document Reviewed: 06/13/2021 [employer] Patient Education 2022 Sponto. Follow Up Care 10/21/2023 09:45:24 With:Ellen Carlos Address: [address], [facility] [address]- When:Within 1 Month(s) Comments:f/u flatulence and GERD [facility] 09-20-2023 Evaluation note Encounter [...] in a timely fashion. Do not smoke. [facility] Other 09-21-2022 Evaluation note* Encounter Date Diagnosis Assessment Notes Treatment Notes Treatment Clinical Notes Jul, Obstructive sleep apnea (adult) (pediatric) (ICD-10 - G47.33) Fortunately, the patient is using and benefiting from treatment. Download was reviewed with patient, Current pressure is controlling apnea well, And we will make no changes at this time. A prescription was sent to the [facility] for new supplies throughout the year. She [...] in a timely fashion. Do not smoke. [facility] Other 06-27-2022 Evaluation + Plan noteExtracted from: Title:Vascular Author:Haley Wade Date:05/21 Referral to Lymphedema Clini c faxed to Marissa @ [facility] ([phone]) Verified with Marissa referral was received & [...] w/CAD if perf and 3D Paddy 04/11/22 [facility] Hospital Discharge instructions Patient Education 04/10/2022 13:05:19 [...] height. This can be done either in [place]an (U.S.) or metric measurements. Note that charts are available to help you find your BMI quickly and easily without having to do these calculations yourself. To calculate your BMI in [place]an (U.[place].) measurements, your health care provider will: [...] medical problems. BMI can be measured using [place]an measurements or metric measurements. To interpret your [...] 07/23/2005 Document Revised: 10/24/2018 Document Reviewed: 09/24/2018 [employer] Patient Education 2020 Sponto. 04/10/2022 13:05:14 Dyslipidemia Dyslipidemia Dyslipidemia is an [...] quitting, ask your health care provider. Take oxut-rug-sqghrja and prescription medicines only as told by [...] 11/16/2014 Document Revised: 07/06/2019 Document Reviewed: 06/12/2019 [employer] Patient Education 2020 Sponto. Follow Up Care 03/15/2022 14:47:35 With:Rupa FINK CNP Address: [address] [phone]- When:Within 1 Month(s) [facility] 11-08-2021 Evaluation + Plan note Future Scheduled Tests Laboratory* HgbA1c 10/02/21 * Vitamin D 25 Hydroxy 10/02/21 * Comprehensive Metabolic Panel 10/02/21 * Lipid Panel 10/02/21 Radiology* BD Bone Density DEXA 05/22/21 * MA Mamm Screen w/CAD if perf and 3D Paddy 04/10/22 [facility] 11-08-2021 Evaluation + Plan note Future Scheduled Tests Laboratory* HgbA1c 10/02/21 * Vitamin D 25 Hydroxy 10/02/21 * Comprehensive Metabolic Panel 10/02/21 * Lipid Panel 10/02/21 Radiology* US LE Venous Duplex Bilateral 06/06/22 * MA Mamm Screen w/CAD if perf and 3D Paddy 04/10/22 * MA Mamm Screen w/CAD if perf and 3D Paddy [facility] Appointment Date:03/27/2023 08:20:00 AM Scheduled Provider:Ellen Carlos Location:[facility] Appointment Type: Open Future Scheduled Tests Radiology* US LE Venous Duplex Bilateral 06/06/22 * MA Mamm Screen w/CAD if perf and 3D Paddy 04/10/22 * MA Mamm Screen w/CAD if perf and 3D Paddy 04/11/22 [facility] Evaluation + Plan note Future Appointments Appointment Date:04/01/2023 08:00:00 AM Scheduled Provider: Location:[facility] Appointment Type: Medicare Wellness Subsequent Appointment Date:03/30/2024 08:00:00 AM Scheduled Provider:Ellen Carlos Location:[facility] Appointment Type: Preventative Visit Future Scheduled Tests Laboratory* HgbA1c 03/27/23 Radiology* MA Mamm Screen w/CAD if performed bilat 03/27/23 * Echo Transthoracic Complete 03/27/23 * BD Bone Density DEXA 03/27/23 * US LE Venous Duplex Bilateral 06/06/22 * MA Mamm Screen w/CAD if perf and 3D Paddy 04/10/22 * MA Mamm Screen w/CAD if perf and 3D Paddy [facility]11[facility]ments Appointment Date:01/29/2024 08:00:00 AM Scheduled Provider: Location:[facility] Appointment Type: Medicare Wellness Subsequent Appointment Date:03/30/2024 08:00:00 AM Scheduled Provider:Ellen Carlos Location:[facility] Appointment Type: Preventative Visit Future Scheduled Tests Laboratory* HgbA1c 03/27/23 Radiology* MA Mamm Screen w/CAD if performed bilat 03/27/23 * BD Bone Density DEXA 03/27/23 * US LE Venous Duplex Bilateral [facility]06/22 [facility]ments Appointment Date:11/26/2023 09:00:00 AM Scheduled Provider:Ellen Carlos Location:[facility] Appointment Type: Open Appointment Date:01/29/2024 08:00:00 AM Scheduled Provider: Location:[facility] Appointment Type: Medicare Wellness Subsequent Appointment Date:03/30/2024 08:00:00 AM Scheduled Provider:Ellen Carlos Location:[facility] Appointment Type:FM Preventative Visit Future Scheduled Tests Laboratory* HgbA1c 03/27/23 Radiology* MA Mamm Screen w/CAD if performed bilat 03/27/23 * BD Bone Density DEXA 03/27/23 [facility] evaluation + Plan note Future Appointments Appointment Date:01/29/2024 08:00:00 AM Scheduled Provider: Location:[facility] Appointment Type: Medicare Wellness Subsequent Appointment Date:03/30/2024 08:00:00 AM Scheduled Provider:Ellen Carlos [facility] Type: Preventative Visit Future Scheduled Tests Laboratory* HgbA1c 03/27/23 Radiology* BD Bone Density DEXA 03/27/23 [facility] evaluation + Plan note Future Appointments Appointment Date:03/30/2024 08:00:00 AM Scheduled Provider:Ellen Carlos [facility] Type:FM Preventative Visit Appointment Date:01/29/2025 09:30:00 AM Scheduled Provider: Location:[facility] Appointment Type: Medicare Wellness Subsequent Future Scheduled Tests Laboratory* HgbA1c 03/27/23 * HCV Antibody RFX to Quant PCR 01/29/24 Radiology* BD Bone Density DEXA 03/27/23 [facility] evaluation + Plan note Future Appointments Appointment Date:03/30/2024 08:00:00 AM Scheduled Provider:Ellen Carlos [facility] Type: Preventative Visit Appointment Date:01/29/2025 09:30:00 AM Scheduled Provider: [facility] Type: Medicare Wellness Subsequent Future Scheduled Tests Laboratory* HCV Antibody RFX to Quant PCR [facility]/29/24 [facility]ments Appointment Date:10/19/2024 08:00:00 AM Scheduled Provider:Ellen Carlos [facility] Appointment Type: Open Appointment Date:01/29/2025 09:30:00 AM Scheduled Provider: Location:[facility] Appointment Type:FM Medicare Wellness Subsequent Future Scheduled Tests Laboratory* HgbA1c 04/08/24 * HCV Antibody RFX to Quant PCR 01/29/24 * Vitamin D 25 Hydroxy 04/08/24 * Comprehensive Metabolic Panel 04/08/24 * Lipid Panel 04/08/24 [facility] Evaluation + Plan note Future Appointments Appointment Date:10/19/2024 08:00:00 AM Scheduled Provider:Ellen Carlos Location:[facility] Appointment Type: Open Appointment Date:01/29/2025 09:30:00 AM Scheduled Provider: Location:[facility] Appointment Type:FM Medicare Wellness Subsequent Future Scheduled Tests Laboratory* HgbA1c 04/08/24 * HCV Antibody RFX to Quant PCR 01/29/24 * Vitamin D 25 Hydroxy 04/08/24 * Comprehensive Metabolic Panel 04/08/24 * Lipid Panel 04/08/24 Radiology* MA Mamm Screen w/CAD if perf and 3D Paddy 04/24/24 [facility] Work Phone: Evaluation note* Diagnosis Primary osteoarthritis of knees, bilateral- [facility] Diagnosis Achilles rupture, right, initial encounter- Primary [facility] Diagnosis Achilles rupture, right, initial encounter- Primary [facility] Diagnosis Achilles rupture, right, initial encounter- Primary [facility] Diagnosis Achilles rupture, right, initial encounter- Primary Right Achilles tendinitis Contracture, ankle, left [M24.572] [facility] Diagnosis Achilles rupture, right, initial encounter- Primary [facility] Diagnosis Pain due to onychomycosis of toenails of both feet- Primary Venous insufficiency Unspecified venous (peripheral) insufficiency [facility] - Reported* Type Description Date Medical History SATUNRINO (obstructive sleep apnea) Medical History Hypertension Medical History Lymphedema b/l legs [facility] Other Hospital course Narrative No data available for this section [facility] Hospital Discharge instructions No data available for this section [facility] No data available for this section [facility] Referred by: Noman ALLISON, Isela Johnson [facility] Chief Complaint and Reason for Visit Chief [...] for this section No Family History Records Found No data available for this section No Family History Records FoundNo Family History Records Found Reason for Referral Specialty Diagnoses / Procedures Referred By Contac t Referred To Contact Diagnoses Achilles rupture, right, initial encounter Danish Carballo, DPM [facility] [address] [place] [address] Referral ID Status Reason Start Date Expiration Date Visits Re quested Visits Authorized [id number] Closed 1 1 Specialty Diagnoses / Procedures Referred By Contac t Referred To Contact Orthopaedic Surgery Diagnoses Primary osteoarthritis of knees, bilateral Procedures L Inj/Asp: bilateral knee Giuliano Garcia PA [address] [address] Referral ID Status Reason Start Date Expiration Date V isits Requested Visits Authorized [id number] Authorized 12/27/2023 06/24/2024 1 1 Additional Source Comments Care Team (unrecognized sect ion and content) Team Status: Inactive Member Role Status Dates Rupa Fink Primary Care Provider Active Dipti Barajas NP Attending Provider Active Team Status: Active Member Role Status Dates Rupa Fink Primary Care Provider Active Director Of Revenue Cycle Management Relationship Specialty Start Date End Date Bello Davis MD [address] [place] [address] PCP - General Internal Medicine 05/07/23 Director Of Revenue Cycle Management Relationship Specialty Start Date End Date Bello Davis MD [address] [place] [address] PCP - General Internal Medicine 05/07/23 Director Of Revenue Cycle Management Relationship Specialty Start Date End Date Bello Davis MD [address] [place] [address] PCP - General Internal Medicine 05/07/23 Director Of Revenue Cycle Management Relationship Specialty Start Date End Date Bello Davis MD [address] [place] [address] PCP - General Internal Medicine 05/07/23 Director Of Revenue Cycle Management Relationship Specialty Start Date End Date Bello Davis MD [address] [place] [address] PCP - General Internal Medicine 05/07/23 Director Of Revenue Cycle Management Relationship Specialty Start Date End Date Bello Davis MD [address] [place] [address] PCP - General Internal Medicine 05/07/23 Director Of Revenue Cycle Management Relationship Specialty Start Date End Date Bello Davis MD [address] [place] [address] PCP - General Internal Medicine 05/07/23 Director Of Revenue Cycle Management Relationship Specialty Start Date End Date Bello Davis MD [address] [place] [address] PCP - General Internal Medicine 05/07/23 Ellen Butt NP [address] [facility] [address] [address] Referring Physician Family Medicine 09/16/24 Director Of Revenue Cycle Management Relationship Specialty Start Date End Date Bello Davis MD [address] [place] [address] PCP - General Internal Medicine 05/07/23 Ellen Butt NP [address] [facility] [address] [place] [id number] Referring Physician Family Medicine 09/16/24 Director Of Revenue Cycle Management Relationship Specialty Start Date End Date Bello Davis MD [address] [place] [address] PCP - General Internal Medicine 05/07/23 Ellen Butt NP [address] [facility] [address] [place] [id number] Referring Physician Family Medicine 09/16/24 Director Of Revenue Cycle Management Relationship Specialty Start Date End Date Bello Davis MD [address] [place] [address] PCP - General Internal Medicine 05/07/23 Ellen Butt NP [address] [facility] [address] [address] Referring Physician Family Medicine 09/16/24 Goals (unrecognized section and content) Goals may be documented in a n alternate section REASON FOR VISIT (unrecogniz ed section and content) Reason Comments Osteoarthritis Reason Comments Foot/ankle Post-op WK 1 post op Reason Onset Date Comments Medication Reaction 09/04/2024 Reason Comments Foot/ankle Post-op WK 2 post op Reason Comments Foot/ankle Post-op WK 3 post op Reason Comments DM Foot Care Dm Nails INFORMATION SOURCE (unrecogn ized section and content) DATE CREATED AUTHOR 08/30/2022 [facility] DATE CREATED AUTHOR AUTHOR'S ORGANIZ ATION 09/28/2023 [facility] DATE CREATED AUTHOR AUTHOR'S ORGANIZ ATION 09/03/2024 [facility] DATE CREATED AUTHOR AUTHOR'S ORGANIZ ATION 09/25/2024 [facility] DATE CREATED AUTHOR AUTHOR'S ORGANIZ ATION 09/26/2024 [facility] FOR RECORDS PERTAINING TO PATIENTS WHO ARE [...] BE BASED ON THE PRIMARY CLINICAL RECORDS. [facility]. provides no warranty or guarantee of the accuracy or completeness of information in this document.
== END 2024-10-02 08:27 | disposition home or self-care (01) ==
LOC: MAMMO 08:26
PROVIDERS: PCP Nurse Practitioner Family; Visit Provider Nurse Practitioner Family
DX: Z12.31 Encounter for screening mammogram for malignant neoplasm of breast (principal)
CPT/HCPCS: 77063; 77067

== ENCOUNTER 2025-03-19 07:57 | Outpatient (RCR) | payer MEDICARE, OTHER, SELFPAY | END 2025-04-24 07:20 | disposition home or self-care (01) | LOC: PT 07:57 | PROVIDERS: PCP Nurse Practitioner Family; Visit Provider Orthopaedic Surgery | DX: M25.511 Pain in right shoulder (principal); M75.41 Impingement syndrome of right shoulder; M19.011 Primary osteoarthritis, right shoulder; M75.31 Calcific tendinitis of right shoulder | CPT/HCPCS: 97110; 97112; 97140; 97162; G0283 ==

== ENCOUNTER 2025-10-04 10:08 | Outpatient (OUT) | payer MEDICARE, OTHER, SELFPAY ==
--- OUTSIDE RECORDS SUMMARY | 2025-09-23 08:50 | XMS_ITS | Encounter Summary ---
Author Organization [facility] Address [address] [place] [address] Care Team Providers Care Hair Clipper Power Name Role Phone Bello Davis MD Primary Care Provider [phone] Ellen Butt TELEVISION ANALYZER Unavailable [phone] Reason for Visit * ReasonCommentsDM Foot Care Encounter Details DateTypeDepartmentCare Team (Latest Contact Info)Jddybwwmwij87/30/2025 9:50 AM EDTOffice Visit [facility] 112 [facility] 120 [place] [address] Frankie Vivar, DPAleida 3006 [facility] 5 [place] [address] Pain due to onychomycosis of toenails of both feet (Primary Dx); Venous insufficiency Social History Tobacco UseTypesPacks/DayYears UsedDateSmoking Tobacco: NeverPassive Smoke Exposure: NeverSmokeless Tobacco: Never Tobacco Cessation:Counseling Given: Yes Alcohol UseStandard Drinks/WeekCommentsNever0 (1 standard drink = 0.6 oz pure alcohol)CommentsUnknownSex and Gender InformationValueDate RecordedSex Assigned at BirthNot on fileLegal GulXyvrrt32/01/2023 8:31 PM EDTGender Identity Not on fileSexual OrientationNot on filedocumented as of this encounter Last Filed Vital Signs Vital SignReadingTime TakenCommentsBlood Pressure--Pulse--Temperature-- Respiratory Vfjw4973 9:44 AM EDTOxygen Saturation--Inhaled Oxygen Concentration--Yyxkcs098 kg (233 lb)09/23/2025 9:44 AM XBQOmsdqs064.1 cm (5' 5 ) 09/23/2025 9:44 AM EDTBody Mass Index38.7709/23/2025 9:44 AM EDTdocumented in this encounter Progress Notes * Frankie Rodrigo Cb, DPM - 09/23/2025 9:50 AM EDT Patient: Sandee Mariee : 1950 PCP: Bello Davis MD SUBJECTIVE [...] lower extremities. Pt also has hx of right achilles tendon repair in the past . Allergies: Allergies Allergen Reactions Amoxicillin Diarrhea Clindamycin Diarrhea Alendronate Hives and Rash Other Reaction(s): Redness of Skin Past Medical History: Past Medical History: Diagnosis Date Achilles tendon contracture right At risk for falls Disorder of right Achilles tendon GERD (gastroesophageal reflux disease) Hallux rigidus, right foot Hypertension Obesity (BMI 30-39.9) OM (onychomycosis) Medications: Current Outpatient Medications: Calcium Carb-Cholecalciferol (Calcium + Vitamin D3) 500-10 MG-MCG chewable tablet, , Disp: , Rfl: cholecalciferol (Vitamin D-3) 1.25 MG (67648 UT) capsule, Take 1,250 mcg by mouth, Disp: , Rfl: famotidine (Pepcid) 40 MG tablet, Take 40 mg by mouth, Disp: , Rfl: Glucosamine HCl (GLUCOSAMINE PO), , Disp: , Rfl: hydrOXYzine HCl (Atarax) 10 MG tablet, Take 20 mg by mouth (Patient not taking: Reported on 09/03/2025), Disp: , Rfl: losartan (Cozaar) 25 MG tablet, 1 (one) time each day at the same time, Disp: , Rfl: Multiple Vitamin (MULTIVITAMIN ADULT PO), , Disp: , Rfl: omega-3 (FISH OIL) 300 MG capsule, , Disp: , Rfl: omeprazole (PriLOSEC) [address] capsule, Take 40 mg by mouth, Disp: , Rfl: Social History: Social History [...] +1 pitting edema to bilateral feet ankles VASC: Positive palpable pedal pulses bilaterally NEURO: Gross sensation intact to bilateral feet ORTHO: Positive pain on palpation to toenails of the left 1,2,3,4,5 toes and right 1,2,3,4,5 toes negative POP to right achilles ASSESSMENT 1. Pain due to onychomycosis of toenails of both feet 2. Venous insufficiency PLAN Patient to continue with oral anti - inflammatories as needed for pain and recommended OTC medications such as tylenol or Ibuprofen Debride nails in length and thickness digits 1 through 10 Frankie Vivar DPM documented in this encounter Plan of Treatment DateTypeDepartmentCare Team (Latest Contact Info)Mommurdtpiy59/07/2026 8:45 AM ESTClinical Support [facility] 112 [facility] [address] [place] [address] Leanna Giang, [facility] [address] [place] [address] 12/07/2025 8:40 AM ESTOffice Visit NOMJaelyn [facility] Otolaryngology 112 [facility] [address] [place] [phone] Martha Chua MD 112 [facility] 130 [place] [address] 12/16/2025 10:10 AM ESTOffice Visit [facility] P[facility] 112 [facility] [address] [place] [phone] Frankie Vivar DPM 3006 [facility] 5 [place] [address] documented as of this encounter Visit Diagnoses Diagnosis Pain due to onychomycosis of toenails of both feet- Primary Venous insufficiency Unspecified venous (peripheral) insufficiency documented in this encounter Care Teams Team MemberRelationshipSpecialtyStart DateEnd Date Bello Davis MD 280 [facility] [address] PCP - GeneralInternal Medicine05/07/23 Ellen Butt NP 280 [facility] [address] [id number] Referring PhysicianFamily Bgkyukpq70/23/24documented as of this encounter
--- OUTSIDE RECORDS SUMMARY | 2025-10-04 10:11 | XMS_ITS | Encounter Summary ---
Author Organization [facility] Address [address] [facility] [place] [address] Care Team Providers Care Physician Neonatology Name Role Phone Bello Davis MD Primary Care Provider [phone] Ellen Butt ROLL CHANGER Unavailable [phone] Encounter Details DateTypeDepartmentCare Team (Latest Contact Info)Jdhdjuycbyd66/30/2025Travel Social History Tobacco UseTypesPacks/DayYears UsedDateSmoking Tobacco: NeverPassive Smoke Exposure: NeverSmokeless Tobacco: NeverAlcohol UseStandard Drinks/WeekComments Never0 (1 standard drink = 0.6 oz pure alcohol)CommentsUnknownSex and Gender InformationValueDate RecordedSex Assigned at BirthNot on fileLegal Sex Tvxzoo0103/25/2023 8:31 PM EDTGender IdentityNot on fileSexual OrientationNot on filedocumented as of this encounter Plan of Treatment DateTypeDepartmentCare Team (Latest Contact Info)Sazcswdyhbl56/07/2026 8:45 AM ESTClinical Support [facility] [place] [facility] [address] [place] [address] [place] [address] Leanna Giang, [facility] 2800 [facility] [place] [address] 12/07/2025 8:40 AM ESTOffice Visit [facility] [place] [facility] [address] [place] [address] [place] [address] Martha Chua MD [address] [place] [address] [place], [place] [address] 12/16/2025 10:10 AM ESTOffice Visit [facility] [address] [place] [address] [place] [address] Frankie Vivar, IRISH [address] [address] documented as of this encounter Visit Diagnoses Not on filedocumented in this encounter Care Teams Team MemberRelationshipSpecialtyStart DateEnd Date Bello Davis MD 280 [facility] [place] [address] PCP - GeneralInternal Medicine05/07/23 Ellen Butt NP 280 [facility] [address] [address] Referring PhysicianFamily Qnofhkli49/23/24documented as of this encounter
--- OUTSIDE RECORDS SUMMARY | 2025-10-04 10:11 | XMS_ITS | Encounter Summary ---
Author Organization [facility] Address [address] [place] [place] [address] Care Team Providers Care Load Out Supervisor Name Role Phone Bello Davis MD Primary Care Provider [phone] Ellen Butt CERTIFIED NURSING ASSISTANT Unavailable [phone] Encounter Details DateTypeDepartmentCare Team (Latest Contact Info)Eoitkrgamiq71/30/2025amboo flowsheet [facility] [address] [place] [address] [place] [address] Frankie Vivar, DPM 3006 [facility] 5 [place] [address] Social History Tobacco UseTypesPacks/DayYears UsedDateSmoking Tobacco: NeverPassive Smoke Exposure: NeverSmokeless Tobacco: NeverAlcohol UseStandard Drinks/WeekComments Never0 (1 standard drink = 0.6 oz pure alcohol)CommentsUnknownSex and Gender InformationValueDate RecordedSex Assigned at BirthNot on fileLegal Sex Rseibj8003/25/2023 8:31 PM EDTGender IdentityNot on fileSexual OrientationNot on filedocumented as of this encounter Plan of Treatment DateTypeDepartmentCare Team (Latest Contact Info)Mopghngesdc30/07/2026 8:45 AM ESTClinical Support [facility] [place] [facility] [address] [place] [address] [place] [address] Leanna Giang, [facility] [address] [facility] [address] 12/07/2025 8:40 AM ESTOffice Visit [facility] [place] [facility] [address] [place] [address] [place] [address] Martha Chua MD 112 [facility] [address] [place] [address] 12/16/2025 10:10 AM ESTOffice Visit [facility] [address] [facility] [address] [place] [phone] Frankie Vivar DPM 3006 [facility] 5 [place] [address] documented as of this encounter Visit Diagnoses Not on filedocumented in this encounter Care Teams Team MemberRelationshipSpecialtyStart DateEnd Date Bello Davis MD 280 [place] [address] PCP - GeneralInternal Medicine05/07/23 Ellen Butt NP 280 [facility] [address] [address] Referring PhysicianFamily Gimdgnvx98/23/24documented as of this encounter
--- OUTSIDE RECORDS SUMMARY | 2025-10-04 10:11 | XMS_ITS | Clinical Summary ---
Author Organization [facility] Address [address] [facility] [place] [address] Care Team Providers Care Hull And Deck Remover Name Role Phone Bello Davis MD Primary Care Provider [phone] Ellen Butt PULP TESTER Unavailable [phone] Allergies Active AllergyReactionsCriticalityNoted DateCommentsAlendronateHishuRashLow 10/02/2018 Other Reaction(s): Redness of Skin UauqtpljbbjAgthlddf16/20/7079VtfirsppzxiWaeadktb14/20/2024 Medications MedicationSigDispense QuantityRefillsLast FilledStart DateEnd DateStatus omeprazole (PriLOSEC) [address] capsule Take 40 mg by mouth03/27/2023ctive losartan (Cozaar) 25 MG tablet 1 (one) time each day at the same time03/27/2023ctive Glucosamine HCl (GLUCOSAMINE PO) 03/27/2023ctive Calcium Carb-Cholecalciferol (Calcium + Vitamin D3) 500-10 MG-MCG chewable tablet Active Multiple Vitamin (MULTIVITAMIN ADULT PO) Active omega-3 (FISH OIL) 300 MG capsule Active famotidine (Pepcid) 40 MG tablet Take 40 mg by mouth10/23/2023ctive cholecalciferol (Vitamin D-3) 1.25 MG (03233 UT) capsule Take 1,250 mcg by mouth10/28/2024ctive hydrOXYzine HCl (Atarax) 10 MG tablet Take 20 mg by mouth08/24/2024ctive Active Problems ProblemNoted DateDiagnosed DatePrimary osteoarthritis of knees, bilateral 06/03/2023CO (posterior capsular opacification), right05/07/2023orneal scar, right eye05/07/2023 Encounters DateTypeDepartmentCare RuelGxfmzamteyt14/30/2025 9:50 AM EDTOffice Visit [facility] [address] [place] [address] [place] [address] Frankie Vivar DPM Pain due to onychomycosis of toenails of both feet (Primary Dx); Venous oefgsgfzwhwag70/30/2025amboo flowsheet [facility] [address] [facility] [address] [place] [address] Frankie Vivar DPM 09/23/20250803Rofohd95/10/2025 8:15 AM EDTOffice Visit [facility] 280 [place] [phone] Manny Garcia PA Primary osteoarthritis of knees, bilateral (Primary Dx)09/03/2025 8:05 AM EDT Ancillary Procedure [facility] 280 [facility] [place] [place] [address] 09/03/2025 8:00 AM EDTAncillary Procedure [facility] 280 [facility] [place] [place] [address] 09/03/20259046Qnllpp85/14/2025 9:00 AM EDTOffice Visit [facility] [address] [facility] [address] [place] [address] Frankie Vivar DPM Pain due to onychomycosis of toenails of both feet (Primary Dx); Venous ogzuatdzpoowu53/14/2025amboo flowsheet [facility] [address] [facility] [address] [place] [address] Frankie Vivar DPM 07/08/2025Travelfrom Last 3 Months Family History Medical HistoryRelationNameCommentsArthritisFatherHeart diseaseFather HypertensionFatherHeart diseaseMotherHypertensionMotherDiabetesOtherSpouseHeart diseaseOtherSpouseRelationNameStatusCommentsFatherAliveMotherDeceasedOtherSpouse Social History Tobacco UseTypesPacks/DayYears UsedDateSmoking Tobacco: NeverPassive Smoke Exposure: NeverSmokeless Tobacco: Never Tobacco Cessation:Counseling Given: Yes Alcohol UseStandard Drinks/WeekCommentsNever0 (1 standard drink = 0.6 oz pure alcohol)CommentsUnknownSex and Gender InformationValueDate RecordedSex Assigned at BirthNot on fileLegal CdaEqljis31/01/2023 8:31 PM EDTGender Identity Not on fileSexual OrientationNot on file Last Filed Vital Signs Vital SignReadingTime TakenCommentsBlood Xyyrdrfh668/7803 10:55 AM EDT Dhdsp5675 10:55 AM ZNCFycdgrnzjnx47.7 ??C (98 ??F)04/03/2024 9:54 AM EDT Respiratory Kyww1214 9:44 AM EDTOxygen Saturation--Inhaled Oxygen Concentration--Xtciex713 kg (233 lb)09/23/2025 9:44 AM NEFSpzrhq082.1 cm (5' 5 ) 09/23/2025 9:44 AM EDTBody Mass Index38.7709/23/2025 9:44 AM EDT Plan of Treatment DateTypeDepartmentCare Team (Latest Contact Info)Xwtuaqbhgwf21/07/2026 8:45 AM ESTClinical Support [facility] [place] [facility] [address] [facility] 130 [place] [address] Leanna Giang, [facility] [address] [place] [address] 12/07/2025 8:40 AM ESTOffice Visit [facility] [place] [facility] [address] [facility] [address] [place] [address] Martha Chua MD [address] [email or web address] [address] [place] [address] 12/16/2025 10:10 AM ESTOffice Visit [facility] [address] [facility] [address] [place] [address] Frankie Viavr DPM [address] [address] Health MaintenanceDue DateLast DoneCommentsCT Qqlbqdnewbfz1950FIT-DNA 1950FIT1950FOBT03/04/19500371Ycduxkvccdgsn1950COVID-19 Vaccine ( season)5111/27/2021, 06/28/2022, 10/05/2021, Additional history nuehxcQzzjqldwvdc66Colorectal Cancer Screening 06/11/2028Pneumococcal Vaccine: 65+ YqbrjTlcdtuluv31/08/2019, 09/27/2016, 09/20/2016, Additional history existsInfluenza KgujrcvQzukislwi86/13/2025, 09/16/2024, 08/01/2023, Additional history exists Procedures Procedure NamePriorityDate/TimeAssociated DiagnosisCommentsPR ARTHROCENTESIS ASPIR&/INJ MAJOR JT/BURSA W/O TFSeypikw79/10/2025 8:54 AM EDT Primary osteoarthritis of knees, bilateral XR KNEE 3 VIEWS AFHLOkwyqww39/10/2025 7:53 AM EDT Primary osteoarthritis of knees, bilateral XR KNEE 3 VIEWS CZYPMYalpqst84/10/2025 7:53 AM EDT Primary osteoarthritis of knees, bilateral from Last 3 Months Results * RI ARTHROCENTESIS ASPIR&/INJ MAJOR JT/BURSA W/O US (09/03/2025 8:54 AM EDT) Elysia Luz, MARIET - 09/03/2025 8:54 AM EDT EDUARDO Castellon 09/07/2025 7:51 AM L Inj/Asp: bilateral knee on 09/03/2025 8:54 AM Indications: pain Details: 25 G needle, lateral approach Medications (Right): 2 mL betamethasone acetate-betamethasone sodium phosphate 6 (3-3) MG/ML Medications (Left): 2 mL betamethasone acetate-betamethasone sodium phosphate 6 (3-3) MG/ML Consent was given by the patient. Authorizing ProviderResult TypeResult StatusToAurora [facility] PAIN [facility]IC/BEDSIDE ORDERABLESFinal Result * XR knee 3 views right (09/03/2025 7:53 AM EDT)Anatomical RegionLaterality ModalityLower Extremities, KneeRightRadiographic ImagingSpecimen (Source) Anatomical Location / LateralityCollection Method / VolumeCollection Time Received Time Narrative 09/07/2025 7:49 AM EDT Imaging Result: ??Bilateral standing PA, bilateral sunrise, and lateral of the affected knee were imaged today in the office. ??No real change from previous imaging fyev-mm-qegl medial compartment as well as patellofemoral no evidence of significant bony erosion causing deformity or evidence of bony tumor. Authorizing ProviderResult TypeResult Rand Garcia PAIMG XR PROCEDURES Edited Result - Final * XR knee 3 views left (09/03/2025 7:53 AM EDT)Anatomical RegionLaterality ModalityLower Extremities, KneeLeftRadiographic ImagingSpecimen (Source) Anatomical Location / LateralityCollection Method / VolumeCollection Time Received Time Narrative 09/07/2025 7:49 AM EDT Imaging Result: Bilateral standing PA, bilateral sunrise, and lateral of the affected knee were imaged today in the office. ??No real change from previous imaging pvfr-xw-rbsu medial compartment as well as patellofemoral no evidence of significant bony erosion causing deformity or evidence of bony tumor. Authorizing ProviderResult TypeResult Rand Garcia PAIMG XR PROCEDURES Final Result from Last 3 Months Insurance * Guarantor: Sandee Mariee AAccount TypeRelation to PatientDate of BirthPhone Billing AddressPersonal/HhxeurOhen1950 [address] [address] Care Teams Team MemberRelationshipSpecialtyStart DateEnd Date Bello Davis MD [address] [place] [phone] PCP - GeneralInternal Medicine05/07/23 Ellen Butt NP 280 [facility] [address] [address] Referring PhysicianFamily Twwesrti16/23/24
--- OUTSIDE RECORDS SUMMARY | 2025-10-04 10:12 | XMS_ITS | Encounter Summary ---
Author Organization [facility] Address [address] [facility] [place] [address] Care Team Providers Care Paramedic Instructor Name Role Phone Bello Davis MD Primary Care Provider [phone] Ellen Butt TRAVELIFT OPERATOR Unavailable [phone] Encounter Details DateTypeDepartmentCare Team (Latest Contact Info)Yxrwjmiornh61/23/2024Clinisync Result Encounter NOMS External Department Unsolicited Brenda Ceja, DPM FACFAS [address] [place] [address] [place] [address] Social History Tobacco UseTypesPacks/DayYears UsedDateSmoking Tobacco: NeverPassive Smoke Exposure: NeverSmokeless Tobacco: NeverAlcohol UseStandard Drinks/WeekComments Never0 (1 standard drink = 0.6 oz pure alcohol)CommentsUnknownSex and Gender InformationValueDate RecordedSex Assigned at BirthNot on fileLegal Sex Pebljs5103/25/2023 8:31 PM EDTGender IdentityNot on fileSexual OrientationNot on filedocumented as of this encounter Plan of Treatment DateTypeDepartmentCare Team (Latest Contact Info)Puvzplesbug56/07/2026 8:45 AM ESTClinical Support [facility] [place] [facility] [address] [place] [address] [place] [phone] Leanna Giang, [facility] [address] [facility] [place] [address] 12/07/2025 8:40 AM ESTOffice Visit [facility] [place] [facility] [address] [place] [address] [place] [address] Martha Chua MD [address] [place] [address] [place] [address] 12/16/2025 10:10 AM ESTOffice Visit [facility] [address] [place] [address] [place] [phone] Frankie Vivar, DPM 3006 [facility] 5 [place] [address] documented as of this encounter Procedures Procedure NamePriorityDate/TimeAssociated DiagnosisCommentsXR CHEST 2V08/17/2024 8:30 AM EDT documented in this encounter Results * XR CHEST 2V (08/17/2024 8:30 AM EDT)Anatomical RegionLateralityModalityOther Specimen (Source)Anatomical Location / LateralityCollection Method / Volume Collection TimeReceived Time08/17/2024 8:30 AM EDT Narrative 08/17/2024 8:33 AM EDT [facility] ?[address] ? [place] [address] ?XRay Report ? Signed ? Patient: JOSE DAI ?MR#: [id number] ?? : 1950 ?Acct:[id number] ?? Age/Sex: 74 / F ?ADM Date: 08/14/24 ?? Loc: RAD ? Attending Dr: BRENDA CEJA M.D. ? Ordering Physician: BRENDA CEJA M.D. ?? Date of Service: 08/14/24 ?? Procedure(s): XR chest 2V ?? Accession Number(s): [id number] ? cc: BRENDA CEJA M.D.; Ellen Butt APRN ? [facility] ? [address] ? [place] [address] ? Patient Name: ?? JOSE DAI ? MRN: [id number] ? date: 1950 ?Sex: F ?? Assigned Patient Location: RAD ?? Current Patient Location: RAD ?? Accession/Order Number: [id number] ?? Exam Date: 08/14/2024 ??09:50 ?Report Date: 08/17/2024 ??08:30 ? At the request of: ?? BRENDA ??DOLCE ? Procedure: ??XR chest 2V ? EXAM: XR chest 2V ? HISTORY: PRE-OP EXAMINATION ? COMPARISON: None. ? TECHNIQUE: 2 views. ? FINDINGS: The heart and mediastinum are unremarkable. Lungs are clear. No ?? focal ?? infiltrates are seen. ? XR/XR chest 2V ?? IMPRESSION: ? No acute findings. No focal infiltrate. No effusions. ? Electronically authenticated by: Sheryl SHAFER ??TIRSO ?? Date: 08/17/2024 ??08:30 ? Dictated By: ?Sheryl Patrick M.D. ? Signed By: ?08/17/24 0833 ? DD/ 0830 ? TD/TT: ? Loading Shovel Oiler: Procedure Note Radiology, Radiologist, MD - 08/17/2024 [place] [address] XRay Report Signed Patient: JOSE DAI AMR#: [id number] : 1950Acct:[id number] Age/Sex: 74 / FADM Date: 08/14/24 Loc: RAD Attending Dr: BRENDA CEJA M.D. Ordering Physician: BRENDA CEJA M.D. Date of Service: 08/14/24 Procedure(s): XR chest 2V Accession Number(s): [id number] cc: BRENDA CEJA M.D.; Ellen Butt APRN The [address] [address] Patient Name: JOSE DAI MRN: [id number] date: 1950 Sex: F Assigned Patient Location: [facility] Current Patient Location: [facility] Accession/Order Number: [id number] Exam Date: 08/14/2024 09:50 Report Date: 08/17/2024 08:30 At the request of: BRENDA CEJA Procedure: XR chest 2V EXAM: XR chest 2V HISTORY: PRE-OP EXAMINATION COMPARISON: None. TECHNIQUE: 2 views. FINDINGS: The heart and mediastinum are unremarkable. Lungs are clear. No focal infiltrates are seen. XR/XR chest 2V IMPRESSION: No acute findings. No focal infiltrate. No effusions. Electronically authenticated by: Sheryl PATRICK Date: 08/17/2024 08:30 Dictated By: Sheryl Patrick M.D. Signed By:08/17/24832 DD/ 9 TD/TT: Loading Shovel Oiler: Authorizing ProviderResult TypeResult StatusMarc D Dolce DPM FACFASCLINISYNC IMAGINGFinal Result documented in this encounter Visit Diagnoses Not on filedocumented in this encounter Care Teams Team MemberRelationshipSpecialtyStart DateEnd Date Bello Davis MD [address] [place] [phone] PCP - GeneralInternal Medicine05/07/23 Ellen Butt NP 280 [facility] [address] [address] Referring PhysicianFamily Fgckbmdy25/23/24documented as of this encounter
--- OUTSIDE RECORDS SUMMARY | 2025-10-04 10:12 | XMS_ITS | Encounter Summary ---
Author Organization [facility] Address [address] [place] [address] Care Team Providers Care Director Communications Name Role Phone Bello Davis MD Primary Care Provider [phone] Ellen Butt [employer] Unavailable [phone] Encounter Details DateTypeDepartmentCare Team (Latest Contact Info)Qghhnnqjczu66/20/2024linisync Result Encounter [facility] Unsolicited Danish Ceja, DPM FACFAS [address] [place] [address] [place] [address] Social History Tobacco UseTypesPacks/DayYears UsedDateSmoking Tobacco: NeverPassive Smoke Exposure: NeverSmokeless Tobacco: NeverAlcohol UseStandard Drinks/WeekComments Never0 (1 standard drink = 0.6 oz pure alcohol)CommentsUnknownSex and Gender InformationValueDate RecordedSex Assigned at BirthNot on fileLegal Sex Jenhas9403/25/2023 8:31 PM EDTGender IdentityNot on fileSexual OrientationNot on filedocumented as of this encounter Plan of Treatment DateTypeDepartmentCare Team (Latest Contact Info)Mejmuslhtug63/07/2026 8:45 AM ESTClinical Support [facility] [address] [place] [phone] Leanna Giang, [facility] [address] [facility] [place] [address] 12/07/2025 8:40 AM ESTOffice Visit [facility] [facility] [address] [place] [phone] Martha Chua MD [address] [place] [address] 12/16/2025 10:10 AM ESTOffice Visit [facility] [address] [place] [phone] Frankie Vivar, DPM [address] [facility] [address] [place] [address] documented as of this encounter Procedures Procedure NamePriorityDate/TimeAssociated DiagnosisCommentsECG 12-LEAD08/14/2024 10:01 AM EDT documented in this encounter Results * ECG 12-LEAD (08/14/2024 10:01 AM EDT)Anatomical RegionLateralityModalityOther Specimen (Source)Anatomical Location / LateralityCollection Method / Volume Collection TimeReceived Time08/14/2024 10:01 AM EDT Narrative 08/14/2024 6:35 PM EDT [facility] ?[address] ? [place] [address] ? Electrocardiograph Report ? Signed ? Patient: JOSE DAI ?MR#: [id number] ?? : 1950 ?Acct:[id number] ?? Age/Sex: 74 / F ?ADM Date: 08/14/24 ?? Loc: RAD ? Attending Dr: DANISH CEJA M.D. ? Ordering Physician: DANISH CEJA M.D. ?? Date of Service: 08/14/24 ?? Procedure(s): ECG 12 lead ?? Accession Number(s): [id number] ? cc: ?[facility] ? Test Date: ?2024-08-14 ?? Pat Name: ? JOSE DAI ?Department: ? Room: ? - ?? Gender: ? Female ? 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 : ?1950 ? Requested By: GURWINDER ALVAREZ ?? Order Number: [id number] ?Reading MD: ?? MARK ??BALL ? Measurements ?? Intervals ?[place] ? Rate: ? 77 ? P: ?59 ?? OR: ? 187 ?QRS: ?56 ?? QRSD: ? 100 ?T: ?54 ?? QT: ? 345 ? QTc: ?391 ? Interpretive Statements ?? SINUS RHYTHM ?? No previous ECG available for comparison ?? Electronically Signed On 08-14-2024 18:35:10 EDT by MARK ??BALL ? Dictated By: ?Mark Reynoso.Destinee. ? Signed By: ?08/14/24 1835 ?08/14/24 1835 ? DD/ 1001 ? TD/TT: ? Copy Coordinator: Procedure Note Radiology, Radiologist, MD - 08/14/2024 [facility] [place] [id number] Electrocardiograph Report Signed Patient: JOSE DAI AMR#: [id number] : 1950Acct:[id number] Age/Sex: 74 / FADM Date: 08/14/24 Loc: RAD Attending Dr: DANISH CEJA M.D. Ordering Physician: DANISH CEJA M.D. Date of Service: 08/14/24 Procedure(s): ECG 12 lead Accession Number(s): [id number] cc: [facility] Test Date: 2024-08-14 Pat Name: JOSE DAI Department: Room: - Gender: Female Housekeeping And Laundry Team Leader: : 1950 Requested By: GURWINDER ALVAREZ Order Number: [id number] Reading MD: MARK REYNOSO Measurements Intervals [place] Rate: 77 P: 59 OR: 187 QRS: 56 QRSD: 100 T: 54 QT: 345 QTc: 391 Interpretive Statements SINUS RHYTHM No previous ECG available for comparison Electronically Signed On 08-14-2024 18:35:10 EDT by MARK REYNOSO Dictated By: Mark Reynoso D.O. Signed By:08/14/24 1835 08/14/24 183 DD/ 1001 TD/TT: Copy Coordinator: Authorizing ProviderResult TypeResult StatusMarc Fran Ceja DPM FACFASCLINISYNC IMAGINGFinal Result documented in this encounter Visit Diagnoses Not on filedocumented in this encounter Care Teams Team MemberRelationshipSpecialtyStart DateEnd Date Bello Davis MD [address] [place] [address] PCP - GeneralInternal Medicine05/07/23 [place] Butt NP [address] [facility] [address] [address] Referring PhysicianFamily Uzznjrey64/23/24documented as of this encounter
--- OUTSIDE RECORDS SUMMARY | 2025-10-04 10:13 | XMS_ITS | CCD ---
Author Organization [facility] Care Team Providers Care Supervisor Forming Department Name Role Phone Rupa RODRIGUEZ Primary Care Physician Rupa Rodriguez Primary Care Provider NEOMI Barajas Attending Provider Karl Dipti Unavailable RUPA RODRIGUEZ Primary Care Unavailable RUPA RODRIGUEZ Admitting Unavailable RUPA RODRIGUEZ Attending Unavailable RUPA RODRIGUEZ Consulting Unavailable RUPA RODRIGUEZ Primary Care Unavailable RUPA RODRIGUEZ Admitting Unavailable RUPA RODRIGUEZ Attending Unavailable RUPA RODRIGUEZ Consulting Unavailable RUPA RODRIGUEZ Primary Care Unavailable DR MARII MUHAMMAD Consulting Unavailable RUPA RODRIGUEZ Admitting Unavailable RUPA RODRIGUEZ Attending Unavailable RUPA RODRIGUEZ Consulting Unavailable ALEKS, RUPA Primary Care Unavailable ISELA TINEO Admitting Unavailable ISELA TINEO Attending Unavailable Ellen Butt Primary Care Physician Dipti Barajas Attending Unavailable Karina Barajasgy Admitting Unavailable Ellen Butt Primary Care UnavailBello Holman MD Primary Care Provider [phone] Ellen Butt NP Unavailable [phone] Ellen Butt Admitting Unavailab le Ellen Butt Attending Unavailab ROBERTA Bentley Attending Michelle vailable ROBERTA Butt Admitting Michelle vailable Ellen Butt Attending Unavailab le Ellen Butt Referring Unavailab le Isela Tineo Admitting Unavailable Isela Tineo Attending Unavailable Ellen Butt Admitting Unavailab le Missler, Ellen Bonilla Attending Unavailab le Dolce, Danish Peters Admitting Unavailable Dolce, Danish Peters Attending Unavailable Aden Chester Attending Unavailable Silvia, Tayler Bond Attending Unavailable Silvia, Tayler Bond Attending Unavailable Missler, Ellen Bonilla Attending Unavailab le Missler, Ellen Bonilla Attending Unavailab le Missler, Ellen Bonilla Attending Unavailab le Missler, Ellen Bonilla Attending Unavailab le Silvia, Tayler Bond Primary Care Physician Silvia, Tayler Bond Attending Unavailable Silvia, Tayler Bond Attending Unavailable Silvia, Tayler Bond Attending Unavailable Missler, Ellen Bonilla Attending Unavailab le Silvia, Tayler Bond Attending Unavailable Silvia, Tayler Bond Admitting Unavailable Silvia, Tayler Bond Attending Unavailable Bello Davis MD Primary Care Provider Daquan COMPRESSOR REPAIRER, Ellen Unavailable [phone] Silvia, Tayler Bond Admitting Unavailable Silvia, Tayler Bond Attending Unavailable Silvia, Tayler Bond Attending Unavailable BROWN, FRANKIE Wallace Attending Unavailable BROWN, FRANKIE Wallace Attending Unavailable DOLCE, DANISH Peters Attending Unavailable HILLS, GIULIANO Peters Attending Unavailable HILLS, GIULIANO Peters Referring Unavailable HILLS, GIULIANO Peters Referring Unavailable DOLCE, DANISH Peters Attending Unavailable DOLCE, DANISH Peters Attending Unavailable HILLS, GIULIANO D Attending Unavailable HILLS, GIULIANO D Referring Unavailable BROWN, FRANKIE Wallace Attending Unavailable BROWN, FRANKIE Wallace Attending Unavailable HILLS, GIULIANO Peters Attending Unavailable POCOS, MARII Wallace Attending Unavailable POCOS, MARII Wallace Referring Unavailable POCOS, MARII Wallace Attending Unavailable POCOS, MARII Wallace Referring Unavailable BROWNFRANKIE Attending Unavailable Allergies Allergy ClassificationReported Allergen(s)Allergy TypeDate of OnsetReaction(s) Facility (20 sources)Alendronate; Translations: [alendronate]Drug Vmmkpgt06-02-4665Mfko (disorder), Cutaneous eruption (morphologic abnormality), Hives, [facility] (2 sources)Alendronate; Translations: [alendronate sodium]Drug Aurpoto85-97-9556 [facility] ([facility] sources)Amoxicillin; Translations: [amoxicillin]Drug Fhsvdie95-39-7971 [facility])Clindamycin; Translations: [clindamycin]Drug Poxcoov36-90-5531 Diarrhea (finding), [facility] Medications Current Medications MedicationDrug Class(es)DatesSig (Normalized)Sig (Original)acetaminophen 250 mg / aspirin 250 mg / caffeine 65 mg oral tablet (2 sources)Platelet Aggregation Inhibitor, Nonsteroidal Anti-inflammatory Drug, Central Nervous System Stimulant, MethylxanthineStart: 68-34-4951ghhl 2 tablets by mouth every four to six hours as needed for pain Wbhkwib-Jfswqvltoznzh-Uxtzejhl (Excedrin Extra Strength) 250-250-65 mg Tablet Active 2 TAB PO EVERY4-6 HOURS as needed for Pain October 02, 2018 1:00am acetaminophen 325 mg / oxyCODONE hydrochloride 5 mg oral tablet (4 sources)Opioid AgonistStart: 08-27-2024 End: 79-00-7825elad 1 tablet by mouth every six hours for painoxyCODONE- acetaminophen (Percocet) 5-325 MG tablet Indications: Pain Take 1 tablet by mouth every 6(six) hours if needed for severe pain for up to 5 days 20 tablet 08/27/2024 09/01/2024 Activeamoxicillin 875 mg / clavulanate 125 mg oral tablet (6 sources)Penicillin-class AntibacterialStart: 09-01-2024 End: 76-49-6970owlc 1 tablet by mouth in the morning, then take 1 tablet by mouth after mealtime, then take 1 tablet by mouth twice dailyamoxicillin- clavulanate (Augmentin) 875-125 MG tablet Indications: Diabetic Foot Infection Take 1 tablet (875 mg) by mouth in the morning and 1 tablet (875 mg) in the evening. Take after meals. Do all this for 10 days. Take 1 pill p.o. b.I.d. for 10 days. 20 tablet 09/01/2024 09/11/2024 Activeaspirin 325 mg delayed release oral tablet (16 sources)Platelet Aggregation Inhibitor, Nonsteroidal Anti-inflammatory Drug Start: 57-83-6303ohjt 1 tablet by mouth once daily as needed for painaspirin 325 mg Oral EC Tab 325 mg = 1 tab(s), Oral, Daily, PRN as needed for pain Start Date: 11/14/20 Status: Ordered Repeat number: 1Start: 71-97-5640nnia 1 tablet by mouth once daily as needed for painaspirin 325 mg Oral EC Tab 325 mg = 1 tab(s), Oral, Daily, PRN as needed for pain Start Date: 11/14/20 Status: Ordered atorvastatin 10 mg oral tablet (20 sources)HMG-CoA Reductase InhibitorStart: 03-12-2022 End: 47-86-7618mjez 1 tablet by mouth once dailyatorvastatin 10 mg Tab 10 mg = 1 tab(s), Oral, Daily, X 90 day(s), # 90 tab(s), Refills(s) 3, Pharmacy: [facility]/pharmacy #[id number], 166, cm, 03/27/23 8:21:00 EDT, Height/Length Dosing, 116.1, kg, 03/27/23 8:21:00 EDT, Weight Dosing Start Date: 03/27/23 Stop Date: 03/21/24 Status: OrderedAtorvastatin Calcium Activebismuth subsalicylate (4 sources)BismuthStart: 09-01-7916Ntkdqa Total Stomach Relief mg, Oral, QID, 907-983-88TO 5ML (Alum & Mag Hydroxide-Simeth) 2-4 tsps bid daily prn, Refills(s) 0 Start Date: 04/13/19 Status: OrderedCalcium (2 sources)Phosphate Binder, CalciumCalcium Activecalcium carbonate 1500 mg / cholecalciferol 200 unt oral capsule (20 sources)Vitamin DStart: 89-18-9471dazx 1 capsule by mouth once dailyCalcium Carbonate-Vitamin D3 (Calcium 600 + D(3)) 600 mg calcium- 200 unit Capsule Active 1 CAP PO Daily October 02, 2018 1:00amStart: 70-57-4053hium 1 tablet by mouth once dailycalcium (as carbonate)-vitamin D 500 mg-200 intl units oral tablet 1 tab(s), Oral, Daily, Refill(s)0 Start Date: 10/17/10 Status: Ordered Calcium Carb-Cholecalciferol (Calcium + Vitamin D3) 500-10 MG-MCG chewable tablet Activecholecalciferol 1.25 mg oral capsule (20 sources)Vitamin DStart: 02-42-6290wgqxpfvdojwjymp (Vitamin D-3) 1.25 MG (85687 UT) capsule Take 1,250 mcg by mouth 10/28/2024 ActiveStart: 10-28-2024 take 1 capsule by mouth every weekcholecalciferol 50,000 intl units oral capsule 1,250 mcg = 1 cap(s), Oral, qWeek, # 12 cap(s), Refills(s) 1, Pharmacy: [facility]/pharmacy #[id number], 162.6, cm, 10/28/24 8:49:00 EST, Height/Length Dosing, 111.4, kg, 10/28/24 8:49:00 EST, Weight Dosing Start Date: 10/28/24 Status: Orderedclindamycin 300 mg oral capsule (4 sources)Lincosamide AntibacterialStart: 09-04-2024 End: 37-36-6115pzqi 1 capsule by mouth in the morning, then take 1 capsule by mouth in the evening, then take 1 capsule by mouth at bedtime, then take 1 capsule by mouth three times dailyclindamycin (Cleocin) 300 MG capsule Indications: Diabetic Foot Infection Take 1 capsule (300 mg) by mouth in the morning and 1 capsule (300 mg) in the evening and 1 capsule (300 mg) before bedtime. Do all this for 10 days. TAKE 1 PILL P.O. T.I.D. FOR 10 DAYS. 30 capsule 09/04/2024 09/14/2024 ActiveFamotidine (20 sources)Histamine-2 Receptor AntagonistStart: 44-55-9743wufkggvskw Active PO March 02, 2025 12:00amStart: 21-67-6191asqdaewzjl (Pepcid) 40 MG tablet Take 40 mg by mouth 10/23/2023 ActiveFish Oils (20 sources)Start: 14-01-0569xvne 1 capsule by mouth once dailyFish Oil 1200 mg oral capsule 1,200 mg = 1 cap(s), Oral, Daily, Prophylaxis Start Date: 10/31/20 Status: Ordered Repeat number: 1Start: 92-35-9750kcod 1 capsule by mouth once dailyFish Oil 1200 mg oral capsule 1,200 mg = 1 cap(s), Oral, Daily, Prophylaxis Start Date: 10/31/20 Status: Orderedomega-3 (FISH OIL) 300 MG capsule Active omega-3 (FISH OIL) 300 MG capsule Fish Oil Activeomega-3 (FISH OIL) 300 MG capsule Fish Oil 0 ActiveFish Oil ActiveGlucosamine (20 sources)Start: 15-68-2138Bivlqhmvpor HCl (GLUCOSAMINE PO) 03/27/2023 Active Start: 52-84-5387Ueeirqgxwif HCl (GLUCOSAMINE PO) Refills(s) 0 03/27/2023 Active Start: 75-39-0395Hwjyaxuntto HCl (GLUCOSAMINE PO) Refills(s) 0 0 03/27/2023 ActiveStart: 25-48-7458uysscgbxtus Refills(s) 0 Start Date: 03/27/23 Status: Ordered Repeat number: 1Start: 46-84-5710oexvgyynrsg Refills(s) 0 Start Date: 03/27/23 Status: Ordered End: 65-70-2039Enroczhwvry 500 MG capsule Glucosamine 11/13/2024 Discontinued (Therapy completed)Glucosamine Chond MSM Formula (2 sources)Glucosamine Chond MSM Formula ActivehydrOXYzine hydrochloride 10 mg oral tablet (20 sources)AntihistamineStart: 07-09-6333xjrtVQOhwbi HCl (Atarax) 10 MG tablet Take 20 mg by mouth 08/24/2024 Activeibuprofen 200 mg oral tablet (2 sources)Nonsteroidal Anti-inflammatory DrugStart: 22-75-6397Zvkpnrrmi 200 mg Tablet Active 2 TAB PO every 6 to 8 hours as needed for Pain October 02, 2018 1:00amStart: 87-80-3960Bxzonfsnu Active 2 TAB PO every 6 to 8 hours October 02, 2018 1:00amlosartan potassium 25 mg oral tablet (20 sources)Angiotensin 2 Receptor BlockerStart: 10-02-2018 End: 77-77-5514pchmhjta (Cozaar) 25 MG tablet 1 (one) time each day at the same time 03/27/2023 ActiveLosartan Potassium ActiveMultiple Vitamin (MULTIVITAMIN ADULT PO) (20 sources)Multiple Vitamin (MULTIVITAMIN ADULT PO) ActiveMultiple Vitamin (MULTIVITAMIN ADULT PO) Multivitamin ActiveMultiple Vitamin (MULTIVITAMIN ADULT PO) Multivitamin 0 ViothlMpcdgody-Ltv-Vluka Acid-Vit K (Multi For Her 50 Plus) 400-80 mcg Capsule (2 sources)Start: 62-59-7529djrv 50-400 capsules by mouth once daily Ttwaszlw-Dvm-Vhmde Acid-Vit K (Multi For Her 50 Plus) 400-80 mcg Capsule Active 1 CAP PO Daily October 02, 2018 1:00amMultivitamin, Therapeutic w/ Minerals (16 sources)Start: 79-50-9330isgv 1 tablet by mouth once dailyMultivitamin, Therapeutic w/ Minerals 1 tab, Oral, Daily, Refill(s) 0 Start Date: 10/17/10 Status: Ordered Repeat number: 1Start: 86-98-9443lknw 1 tablet by mouth once dailyMultivitamin, Therapeutic w/ Minerals 1 tab, Oral, Daily, Refill(s) 0 Start Date: 10/17/10 Status: Orderedomeprazole 40 mg delayed release oral capsule (20 sources)Proton Pump InhibitorStart: 02-25-2023 End: 33-56-5890cuywaqbepy (PriLOSEC) [address] capsule Take 40 mg by mouth 03/27/2023 ActiveStart: 96-54-2760txee 1 capsule by mouth once dailyomeprazole 40 mg Cap-DR 40 mg = 1 cap(s), Oral, Daily, # 90 cap(s), Refills(s) 3, Pharmacy: [facility]/pharmacy #[id number], 165, cm, 10/02/21 8:58:00 EST, Height/Length Dosing, 115, kg, 10/02/21 8:58:00 EST, Weight Dosing Start Date: 04/02/22 Status: OrderedStart: 10-02-2018 End: 78-86-5639jade 1 capsule by mouth once dailyOmeprazole 40 mg capsule,delayed release(DR/EC) Discontinued 40 MG PO Daily October 02, 2018 1:00am October 02, 2018 11:20amStart: 37-04-0728ygct 2 capsules by mouth once dailyOmeprazole 40 mg Capsule,Delayed Release(Dr/Ec) Active 80 MG PO Daily October 02, 2018 1:00amStart: 14-56-6733ddyv 80 mg by mouth once daily Omeprazole Active 80 MG PO Daily October 02, 2018 1:00amOmeprazole Active omeprazole 40 mg Cap-DR (1 source)Start: 50-70-2370tttw 1 capsule by mouth once dailyomeprazole 40 mg Cap-DR 40 mg = 1 cap(s), Oral, Daily, # 90 cap(s), Refills(s) 3, Pharmacy: [facility]/pharmacy #[id number], 165, cm, 10/02/21 8:58:00 EST, Height/Length Dosing, 115, kg, 10/02/21 8:58:00 EST, Weight Dosing Start Date: 04/02/22 Status: Ordered Vitamin D3 50,000 intl units oral capsule (1 source)Start: 04-62-6482ldlf 1 capsule by mouth every weekVitamin D3 50,000 intl units oral capsule See Instructions, TAKE 1 CAPSULE BY MOUTH EVERY WEEK, # 12 cap(s), Refills(s) 1, Pharmacy: [facility] ST[id number], 162.6, cm, 02/02/25 9:49:00 EDT, Height/Length Dosing, 109.7, kg, 02/02/25 9:49:00 EDT, Weight Dosing Start Date: 04/09/25 Status: Ordered Quantity: 12.0 Unit: cap(s) Repeat number: 1 Completed/Discontinued Medications MedicationDrug Class(es)DatesSig (Normalized)Sig (Original)ascorbic acid 60 mg / cholecalciferol 0.01 mg / folic acid 0.3 mg / niacin 13.5 mg / riboflavin 1.2mg / sodium fluoride 0.55 mg / thiamine 1.05 mg / vitamin a 0.75 mg / vitamin b12 0.0045 mg / vitamin b6 1.05 mg / vitamin e 6.75 mg chewable tablet (20 sources)Nicotinic Acid, Vitamin A, Vitamin B12, Vitamin D, Vitamin C End: 18-14-9316Vcnhpbwnl Multivitamins-Fl (MultiVitamin + Fluoride) 0.25 MG chewable tablet Multivitamin 11/13/2024 Discontinued (Therapy completed) betamethasone 3 mg/ml / betamethasone acetate 3 mg/ml injectable suspension (20 sources)CorticosteroidStart: 09-03-2025 End: 95-72-2435kzkbiyjyvaqtf acetate-betamethasone sodium phosphate (Celestone) injection 2 mLStart: 09-03-2025 End: mL, Intra-articular, Once PRN Procedure, Starting on Sat09/03/25 at 0854, For 1 doseStart: 04-14-2025 End: 83-26-4183vazoxymliuske acetate-betamethasone sodium phosphate (Celestone) injection 2 mLStart: 04-14-2025 End: mL, Intra-articular, Once PRN Procedure, Starting on Sat04/14/25 at 0926, For 1 doseStart: 03-12-2025 End: 11-21-6741qgxrbihfisiza acetate-betamethasone sodium phosphate (Celestone) injection 1 mLStart: 03-12-2025 End: mL, Intra-articular, Once PRN Procedure, Starting on Sat03/12/25 at 1111, For 1 doseStart: 11-13-2024 End: 96-30-7061oakmdglwyoqzd acetate-betamethasone sodium phosphate (Celestone) injection 12 mgStart: 11-13-2024 End: 48-48-486203 mg, Intra-articular, Once PRN Procedure, Starting on Sat11/13/24 at 0907, For 1 doseStart: 12-27-2023 End: 11-29-7838mxeejywlmqiai acetate-betamethasone sodium phosphate (Celestone) injection 12 mgCalcium Carb-Cholecalciferol (CALCIUM + VITAMIN D3 PO) (20 sources) End: 38-14-1441Nvblndk Carb-Cholecalciferol (CALCIUM + VITAMIN D3 PO) Calcium + Vitamin D3 03/12/2025 Discontinued(Duplicate order)Calcium Carb-Cholecalciferol (CALCIUM + VITAMIN D3 PO) Calcium + Vitamin D3 ActiveCalcium Carb- Cholecalciferol (CALCIUM + VITAMIN D3 PO) Calcium + Vitamin D3 0 Active dexamethasone 1 mg/ml / tobramycin 3 mg/ml ophthalmic suspension (20 sources)Aminoglycoside Antibacterial, CorticosteroidStart: 08-08-2023 End: 13-99-3411lnoc 1 drop(s) into the eye(s) every three hours, then take 1 drop(s) into the eye(s) four times dailytobramycin-dexAMETHasone (Tobradex) ophthalmic suspension INSTILL 1 DROP INTO RIGHT EYE EVERY 3 HOURS FOR 1 DAYS THEN 1 DROP 4 TIMES A DAY 08/08/2023 03/12/2025 Discontinuedmeloxicam 7.5 mg oral tablet (5 sources)Nonsteroidal Anti-inflammatory DrugStart: 03-12-2025 End: 59-00-9480eyxm 1 tablet by mouth once daily at mealtimemeloxicam (Mobic) 7.5 MG tablet Indications: Impingement syndrome of right shoulder , Arthritis of right shoulder region , Calcific tendinitis of right shoulder Take 1 tablet (7.5 mg) by mouth Daily With food. 30 tablet 2 03/12/2025 04/11/2025 methylPREDNISolone (20 sources)CorticosteroidStart: 04-30-2024 End: 88-14-1624mkslmiNFZRYDXusdby (Medrol Dospak) 4 MG tablets Indications: Right Achilles tendinitis Follow schedule on MEDROL PACK package instructions to be used as directed 21 tablet 04/30/2024 11/13/2024 Discontinued (Therapy completed)Start: 98-90-4423dicmzvBJKAVGGmacbk (Medrol Dospak) 4 MG tablets Indications: Right Achilles tendinitis Follow schedule on MEDROL PACK package instructions to be used as directed 21 tablet 04/30/2024 ActiveMulti Complete (2 sources)Multi Complete Active Problems Active Problems Problem ClassificationProblemDateDocumented DateEpisodic/ChronicAortic; peripheral; and visceral artery aneurysms (16 sources)Aneurysm of splenic twivxd99-09-0362TgnkxwkOtvgwjmi (20 sources)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; Translations: [Other secondary cataract, right eye]Onset: 223387-29-5269KsefqsrTjjmwizqiv heart failure; nonhypertensive (11 sources)Diastolic -44-4320XmgjrjxKepxfirf mellitus without complication (20 sources)Prediabetes; Translations: [Prediabetes]Onset: 55-36-1334Ljisouiw Disorders of lipid metabolism (20 sources)Hyperlipidemia; Translations: [Hyperlipidemia, unspecified]Onset: 40-33-0857VpoxysgHjargygyqm disorders (12 sources)Gastroesophageal reflux disease without esophagitis; Translations: [Gastro-esophageal reflux disease without esophagitis]Onset: 70-51-1121Alfeiiv Essential hypertension (20 sources)Essential hypertension; Translations: [Essential (primary) hypertension]Onset: 79-03-5335UoolyyaTbprr valve disorders (12 sources)Systolic -47-3113RcubcmciFhcxscnlgded with complications and secondary hypertension (4 sources)Hypertensive heart disease with heart failure; Translations: [HTN HEART DISEASE W/HEART FAIL]Onset: 30-01-5585FjhvzgdBpujfnwhhyusd and screening for infectious disease (1 source)Viral screening status; Translations: [Encounter for screening for other viral diseases]Onset: 67-13-9568LbflhiqrHzfzmwz (12 sources)Pain in toe; Translations: [Tinea unguium]72-25-6310Cbyzbsxp Nutritional deficiencies (20 sources)Vitamin D deficiency; Translations: [Vitamin D deficiency, unspecified]Onset: 05-15-4651OwkxvamHmoifgopvvahch (20 sources)Osteoarthritis; Translations: [Unspecified osteoarthritis, unspecified site]Onset: 54-06-7903KfpifqbMekdm acquired deformities (2 sources)Contracture of joint of left ankle; Translations: [Contracture, left ankle]83-94-8743XqezhmmDcfmu acquired deformities (2 sources)Contracture of joint of right ankle; Translations: [Contracture, right ankle]16-11-9048XrqtegdMxgrh aftercare (1 source)Long-term current use of drug therapy; Translations: [Other retirement (current) drug therapy]Onset: 81-30-2010XpyublyyGazcr and ill-defined heart disease (1 source)Heart disease; Translations: [Other ill-defined heart diseases]Onset: 03-66-1482EcapngyJfoqf bone disease and musculoskeletal deformities (16 sources)Uuccllczlw76-34-0268ImohofodYhqjj bone disease and musculoskeletal deformities (1 source)Disorder of bone; Translations: [Other specified disorders of bone density and structure, unspecified site]Onset: 67-26-2404NzrbpfgbWejyg connective tissue disease (8 sources)Right achilles tendonitis; Translations: [Achilles tendinitis, right leg]92-98-3213VvwozdzzQmzoj connective tissue disease (6 sources)Impingement syndrome of right shoulder region; Translations: [Impingement syndrome of right shoulder]04-36-1771EqfebbqbTdhvn connective tissue disease (6 sources)Calcific tendinitis of right shoulder; Translations: [Calcific tendinitis of right shoulder]78-66-9006TlqxepbnGynrt diseases of veins and lymphatics (14 sources)Lymphedema; Translations: [Lymphedema, not elsewhere classified] Onset: 27-51-5444CdrujqiUydnb diseases of veins and lymphatics (4 sources)Lymphedema, not elsewhere classified; Translations: [LYMPHEDEMA NOT ELSEWHERE CLASSIFIED]Onset: 67-36-6686YtqdoufLwily diseases of veins and lymphatics (14 sources)Vascular insufficiency; Translations: [Venous insufficiency (chronic) (peripheral)]83-48-7313CkyqcvvlYtidv ear and sense organ disorders (1 source)Impacted cerumen in left ear; Translations: [Impacted cerumen, left ear]Onset: 29-42-0247BmypqnwdNjhjp ear and sense organ disorders (3 sources)Impacted robdqeh09-45-6218VgnbdqbuSpvxv gastrointestinal disorders (5 sources)Passing flatus; Translations: [Flatulence]Onset: 36-43-1123Ltpetfoq Other non-traumatic joint disorders (2 sources)Pain in left knee; Translations: [Pain of joint of knee]Onset: 02-37-1153WexhjnncUgrtb non-traumatic joint disorders (2 sources)Pain in right shoulder; Translations: [Pain in joint, shoulder region]97-85-7397MfophzwlCqfsb nutritional; endocrine; and metabolic disorders (16 sources)Morbid obesity; Translations: [Morbid (severe) obesity due to excess calories]Onset: 30-04-1095AftvtduOudng nutritional; endocrine; and metabolic disorders (20 sources)Body mass index 40+ - severely obese; Translations: [Body mass index (BMI) 40.0-44.9, adult]Onset: 61-20-0935ClnniroAepou nutritional; endocrine; and metabolic disorders (6 sources)Obese class IOZ92-77-0623NwhyjrkDphxw nutritional; endocrine; and metabolic disorders (2 sources)Body mass index (BMI) 40.0-44.9, adultChronicOther nutritional; endocrine; and metabolic disorders (1 source)Childhood obesity; Translations: [Body mass index (BMI) pediatric, greater than or equal to 95th percentile for age]Onset: 33-52-8052FstzzatjQzpvk nutritional; endocrine; and metabolic disorders (2 sources)H/O: endocrine xbowovzk66-99-0929AhiqcmxbXamve screening for suspected conditions (not mental disorders or infectious disease) (5 sources)Encounter for other screening for malignant neoplasm of breast; Translations: [Screening for malignant neoplasm done]Onset: 81-48-9900Ewosvkgr Other skin disorders (1 source)Disorder of skin pigmentation; Translations: [Disorder of pigmentation, unspecified]Onset: 88-15-5946HmxuoruqHsbgs skin disorders (4 sources)Discoloration of cspc17-96-6382EgisrtqsGpcfnwzemh and visceral atherosclerosis (4 sources)Peripheral vascular disease; Translations: [Peripheral vascular disease, unspecified]Onset: 95-02-5145NgginqpNklelnca codes; unclassified (20 sources)Obstructive sleep apnea syndrome; Translations: [Obstructive sleep apnea (adult) (pediatric)]Onset: 43-67-9211UpsxrmzFbdmeetn codes; unclassified (2 sources)Obstructive sleep apnea (adult) (pediatric)ChronicResidual codes; unclassified (1 source)Obstructive sleep apnea (adult)(pediatric); Translations: [Obstructive sleep apnea (adult) (pediatric)]Onset: 29-42-8631GsweabeZsndtuwl codes; unclassified (1 source)Dependence on enabling machine or device; Translations: [Dependence on other enabling machines and devices]Onset: 86-96-3392UcznzdjRlupuelq codes; unclassified (1 source)Localized edema; Translations: [Localized edema]Onset: 04-10-2022 EpisodicResidual codes; unclassified (4 sources)Bilateral lower limb -11-4781LwkqapkuRhbmelme codes; unclassified (1 source)H/O: Disorder; Translations: [Personal history of other specified conditions]Onset: 77-15-5073GlzmhxqtBmcfpvhv codes; unclassified (1 source)Insomnia; Translations: [Insomnia, unspecified]24-04-9106WziwryqgDidx and subcutaneous tissue infections (1 source)Cellulitis of lower jtbm48-43-7249XgwiqchgQucorzghmyv; intervertebral disc disorders; other back problems (16 sources)Lumbar hrrjoudupncgw56-74-0663OjxiczbyHpyndli and strains (20 sources)Rupture of right Achilles tendon; Translations: [Strain of right Achilles tendon, initial encounter]03-76-5500IcmjzwlyBtnbbxcogmaw (4 sources)Pain of knee ammfcg05-64-3888Sqazmnuqrdil (15 sources)Patient encounter iuyjfn20-13-9388Clialepahwai (12 sources)Peripheral arterial jxpydmp29-86-5255Bqpatmh on above:noted in 06/21/2022 Vascular Consult Note. added per outpatient CDI policy.Unclassified (4 sources)Right shoulder pain, unspecified jeicduwkjj86-13-1307Dgiukkikzixr (2 sources)Arthritis of right shoulder -63-0420 Past or Other Problems Problem ClassificationProblemDateDocumented DateEpisodic/ChronicOther eye disorders (20 sources)Scar of cornea of right eye; Translations: [Unspecified corneal scar and opacity]Onset: 175626-94-2097Dgvzhgjq Results Test NameValueInterpretationReference RangeFacilityXR Knee - left 3 Viewson 15-13-5896Vpetsle Result: Bilateral standing PA, bilateral sunrise, and lateral of the affected knee were imaged today in the office. No real change from previous imaging dooq-go-vbrx medial compartment as well as patellofemoral no evidence of significant bony erosion causing deformity or evidence of bony tumor.Critical access hospitalXR Knee - right 3 Viewson [id number] HealthcareImaging Result: Bilateral standing PA, bilateral sunrise, and lateral of the affected knee were imaged today in the office. No real change from previous imaging otrn-ze-vovl medial compartment as well as patellofemoral no evidence of significant bony erosion causing deformity or evidence of bony tumor.Critical access hospitalNo Panel Informationon [id number] EDUARDO Glass 09/07/2025 7:51 AM L Inj/Asp: bilateral knee on 09/03/2025 8:54 AM Indications: pain Details: 25 G needle, lateral approach Medications (Right): 2 mL betamethasone acetate-betamethasone sodium phosphate 6 (3-3) MG/ML Medications (Left): 2 mL betamethasone acetate-betamethasone sodium phosphate 6 (3-3) MG/ML Consent was given by the patient. Critical access hospitalRadiology Study observation (narrative)[facility] Center[facility] Summaryon [id number] Visit Summary Ambulatory Visit Summary SANDEE DAI :1950 Visit Date:04/27/2025 Ambulatory Visit Instructions Your Diagnosis Hyperlipidemia Benign hypertension History of prediabetes Your Care Team Attending Physician - Tayler Muller Primary Care Physician - Tayler Muller This Is Your Medications List aspirin (aspirin 325 mg Oral EC Tab) cholecalciferol (Vitamin D3 50,000 intl units oral capsule) famotidine (famotidine 40 mg Tab) hydrOXYzine (hydrOXYzine hydrochloride 10 mg Tab) losartan (losartan 25 mg Tab) multivitamin with minerals (Multivitamin, Therapeutic w/ Minerals) omega-3 polyunsaturated fatty acids (Fish Oil 1200 mg oral capsule) omeprazole (omeprazole 40 mg Cap-DR) Procedures Performed Cataract extraction and insertion of intraocular lens (11/15/2020), Cataract extraction and insertion of intraocular lens (11/01/2020), Colonoscopy (06/11/2018), Achilles tendon repair. Discharge Vitals Temperature (Temporal Artery) 36.2 ???C Heart Rate (Peripheral) 80 Respiratory Rate 18 Blood Pressure 144/72 Height 162.6 cm Height 64 in Weight 109.1 kg Weight 240.524 lb BMI 41.27 What to do next Scheduled Follow-Up Appointments Saturday 9:40 AM EST With: Tayler Muller Where: [address] [id number]- Saturday2025 9:30 AM EDT With: Where: [address] [id number]- Medications What How Much When Why Instructions Unchanged aspirin (aspirin 325 mg Oral EC Tab) 1 Tablets By Mouth Every day as needed for as neededfor pain Unchanged cholecalciferol (Vitamin D3 50,000 intl units oral capsule) See instructions TAKE 1 CAPSULE BY MOUTH EVERY WEEK Unchanged famotidine (famotidine 40 mg Tab) 1 Tablets By Mouth Every day GERD (gastroesophageal reflux disease) Unchanged hydrOXYzine (hydrOXYzine hydrochloride 10 mg Tab) 2 Tablets By Mouth 4 times a day as needed for for itching Pruritus, unspecified Heart murmur, systolic BMI 40.0-44.9, adult Class 3 severeobesity due to excess calories with body mass index (BMI) of 40.0 to 44.9 in adult Nonsmoker Unchanged losartan (losartan 25 mg Tab) 1 Tablets By Mouth Every day Unchanged multivitamin with minerals (Multivitamin, Therapeutic w/ Minerals) 1 tab By Mouth Every day Unchanged omega-3 polyunsaturated fatty acids (Fish Oil 1200 mg oral capsule) 1 Capsules By Mouth Every day Unchanged omeprazole (omeprazole 40 mg Cap-DR) 1 Capsules By Mouth Every day Allergies alendronate (Hives, Rash) amoxicillin (Diarrhea) clindamycin (Diarrhea) Problems Ongoing - Any problem that you are currently receiving treatment for. Benign hypertension BMI 40.0-44.9, adult Diastolic dysfunction without heart failure GERD (gastroesophageal reflux disease) Heart murmur, systolic History of prediabetes Hyperlipidemia Lumbar radiculopathy Lymphedema Morbid obesity Morbid obesity with BMI of 40.0-44.9, adult Obstructive sleep apnea Osteopenia Peripheral arterial disease Vitamin D deficiency Historical - Any problem that you are no longer receiving treatment for. Aneurysm of splenic artery Osteoarthritis Patient Survey You may receive a survey via text or e-mail asking about your office visit. Please share your experience with us by completing your survey. We appreciate your feedback and thank you for choosing us for your care. [facility] Medicine Office/Clinic Noteon [phone] Medicine Office/Clinic NoteFanew [facility] Medicine Office/Clinic Note HPI Staff Sandee is a 75 year old female presenting to establish care, has concerns about itching on face started 3-4days ago Establish Care: History: Any previous diagnosis: History of seeing any specialist: Sarah france When was your last doctors visit: 10/28/24 Last provider: Daquan Any recent labs: Laboratory Results CMP A/G Ratio: 1.6 (04/22/25) AGAP: 12 mEq/L (04/22/25) Albumin Lvl: 3.9 gm/dL (04/22/25) Alk Phos: 102 Int._Unit/L High (04/22/25) ALT: 24 Int._Unit/L (04/22/25) AST: 16 Int._Unit/L (04/22/25) Bili Total: 0.4 mg/dL (04/22/25) BUN: 18 mg/dL (04/22/25) BUN/Creat Ratio: 20 (04/22/25) Calcium Lvl: 9.1 mg/dL (04/22/25) Chloride: 105 mmol/L (04/22/25) CO2: 26 mmol/L (04/22/25) Creatinine: 0.9 mg/dL (04/22/25) Globulin: 2.4 gm/dL (04/22/25) Glucose Lvl: 114 mg/dL (04/22/25) Potassium Lvl: 4.4 mmol/L (04/22/25) Sodium Lvl: 139 mmol/L (04/22/25) Total Protein: 6.3 gm/dL (04/22/25) Last CBC Basophil Absolute: 0.1 E9/L (03/27/24) Basophil Auto: 1 % (03/27/24) Eos Absolute: 0.6 E9/L High (03/27/24) Eos Auto: 7.2 % (03/27/24) Hct: 38.1 % (03/27/24) HGB: 12.7 gm/dL (03/27/24) Lymph Absolute: 1.6 E9/L (03/27/24) Lymph Auto: 20.5 % (03/27/24) MCH: 28.3 pg (03/27/24) MCHC: 33.3 gm/dL (03/27/24) MCV: 85 fL (03/27/24) Archer Absolute: 0.9 E9/L (03/27/24) Archer Auto: 11.5 % (03/27/24) MPV: 8.2 fL (03/27/24) Neutro Absolute: 4.7 E9/L (03/27/24) Neutro Auto: 59.8 % (03/27/24) Platelet: 196 E9/L (03/27/24) RBC: 4.5 E12/L (03/27/24) RDW: 13.6 % (03/27/24) WBC: 7.8 E9/L (03/27/24) Health Maintenance UTD: Colonoscopy: 06/11/18 dexa: Acute: Current issues/complaints: History of Present Illness pt presents today to establish care with new provider. Physical Exam Vitals & Measurements T: 36.2 ???C(Temporal Artery) HR: 80(Peripheral) RR: 18 BP: 144/72 HT: 162.6 cm HT: 64 in WT: 109.1 kg WT: 240.524 lb BMI: 41.27 General: alert, no acute distress ENMT: oral mucosa moist, no pharyngeal erythema or exudate Cardiovascular: regular rate and rhythm, normal peripheral perfusion Respiratory: Lungs CTA, respirations non labored Extremities: no deformity, no trauma Neurological: oriented x 4, LOC appropriate for age, CN II-XII intact, motor strength equal & normal bilaterally, speech normal Assessment/Plan 1. Hyperlipidemia (E78.5: Hyperlipidemia, unspecified) discussed recent lab results. pt does not want to start medication. will be more careful with her diet. declines needs for dietary consult. RTC 3 months Ordered: triamcinolone, 40 mg = 1 mL, Injection, IntraMuscular, Once, Stop date 04/27/25 12:55:00 EDT, Routine, Start date 04/27/25 12:55:00 EDT, 04/27/25 12:55:00 EDT 2. Benign hypertension (I10: Essential (primary) hypertension) BP at goal today Ordered: triamcinolone, 40 mg = 1 mL, Injection, IntraMuscular, Once, Stop date 04/27/25 12:55:00 EDT, Routine, Start date 04/27/25 12:55:00 EDT, 04/27/25 12:55:00 EDT 3. History of prediabetes (Z87.898: Personal history of other specified conditions) pt HGBA1C is 6.1 up from 5.6. discussed making dietary changes. pt admits to eating ice cream dailyand she doesn't plan to stop. discussed starting medication..she is not interested. discussed this is a progressive disease and she needs to be more careful with her diet. declines diabetic education. Ordered: triamcinolone, 40 mg = 1 mL, Injection, IntraMuscular, Once, Stop date 04/27/25 12:55:00 EDT, Routine, Start date 04/27/25 12:55:00 EDT, 04/27/25 12:55:00 EDT 4. Rash (R21: Rash and other nonspecific skin eruption) pt was doing yard work and now has a itchy rash on neck and face. kenalog 40mg given in office today. 5. BMI 40.0-44.9, adult (Z68.41: Body mass index [BMI] 40.0-44.9, adult) BMI education given Follow-up No qualifying data available Problem List/Past Medical History Ongoing Benign hypertension BMI 40.0-44.9, adult Diastolic dysfunction without heart failure GERD (gastroesophageal reflux disease) Heart murmur, systolic History of prediabetes Hyperlipidemia Lumbar radiculopathy Lymphedema Morbid obesity Morbid obesity with BMI of 40.0-44.9, adult Obstructive sleep apnea Osteopenia Peripheral arterial disease Rash Vitamin D deficiency Historical Aneurysm of splenic artery Osteoarthritis Procedure/Surgical History Cataract extraction and insertion of intraocular lens (11/15/2020), Cataract extraction and insertion of intraocular lens (11/01/2020), Colonoscopy (06/11/2018), Achilles tendon repair. Medications aspirin 325 mg Oral EC Tab, 325 mg= 1 tab(s), Oral, Daily, PRN famotidine 40 mg Tab, 40 mg= 1 tab(s), Oral, Daily, 3 refills Fish Oil 1200 mg oral capsule, 1200 mg= 1 cap(s), Oral, Daily hydrOXYzine hydrochloride 10 mg Tab, 20 mg= 2 tab(s), Oral, QID, PRN losartan 25 mg Tab, 25 mg= 1 tab(s), Oral, Daily, 3 refills Multivitamin, Therapeutic w/ Minerals (more content not included)...[facility] CenterComment on above:Result Comment: Electronically Signed By: Tayler Muller\.br\Date and Time Signed: 04/27/25 12:58 EDTCHEMISTRYOrdered By: SYSTEM SYSTEM on [id number] D3 [Mass/Vol]62.7 ng/mLNormal 30.0 - 100.0 ng/mLRemisol ChemAlbumin [Mass/Vol]3.9 g/dLNormal3.3 - 5.0 gm/dL Remisol ChemAlbumin/Globulin [Mass ratio]1.6 {ratio}Normal1.1 - 2.2Remisol Chem ALP [Catalytic activity/Vol]102 [iU]/dHigh21 - 98 Int._Unit/LRemisol ChemALT No additional P-5'-P [Catalytic activity/Vol]24 [iU]/dNormal6 - 46 Int._Unit/L Remisol ChemAnion gap [Moles/Vol]12 mmol/LNormal6 - 16 mEq/LRemisol ChemAST [Catalytic activity/Vol]16 [iU]/dNormal5 - 43 Int._Unit/LRemisol ChemBilirubin [Mass/Vol]0.4 mg/dLNormal0.0 - 1.1 mg/dLRemisol ChemCalcium [Mass/Vol]9.1 mg/dL Normal8.9 - 11.1 mg/dLRemisol ChemChloride [Moles/Vol]105 mmol/MJgowjv711 - 111 mmol/LRemisol ChemCholesterol [Mass/Vol]202 mg/qWTxdf854 - 200 mg/dLRemisol Chem Cholesterol in HDL [Mass/Vol]55 mg/dLInvalid Interpretation CodeRemisol Chem Comment on above:Result Comment: '>= 60 LOW RISK' '<= 40 HIGH RISK'Cholesterol in LDL [Mass/Vol]124 mg/dLNormal<=129mg/dLRemisol ChemCholesterol in VLDL [Mass/Vol]46 mg/dLHigh7 - 40 mg/dLRemisol ChemCO2 [Moles/Vol]26 mmol/TFaezdl61 - 31 mmol/LRemisol ChemCreatinine [Mass/Vol]0.9 mg/dLNormal0.5 - 1.3 mg/dLRemisol ChemGFR/1.73 sq M.predicted MDRD (S/P/Bld) [Vol rate/Area]67 mL/min/1.73 w8Rbssfv>=59mL/min/1.73 c0Sedqixm ChemGlobulin (S) [Mass/Vol]2.4 g/dLNormal1.4 - 4.0 gm/dLRemisol ChemGlucose [Mass/Vol]114 mg/dL Krjvml05 - 199 mg/dLRemisol ChemPotassium [Moles/Vol]4.4 mmol/LNormal3.5 - 5.3 mmol/LRemisol ChemProtein [Mass/Vol]6.3 g/dLNormal6.0 - 7.8 gm/dLRemisol Chem Sodium [Moles/Vol]139 mmol/HWvcity665 - 145 mmol/LRemisol ChemTriglyceride [Mass/Vol]228 mg/dLHigh<=149mg/dLRemisol ChemUrea nitrogen [Mass/Vol]18 mg/dL Normal5 - 21 mg/dLRemisol ChemUrea nitrogen/Creatinine [Mass ratio]20 mg/mg Ewuuva53 - 20Remisol ChemCHEMISTRYOrdered By: Cristina Larose on 04-22-2025 HbA1c (Bld) [Mass fraction]6.1 %High<=5.9%[facility] ChemAutoSSCMPon [id number] [Mass/Vol]3.9 g/dLNormal3.3-5.0[facility] HospitalComment on above: Performed By: #### [id number] #### [facility] [address], [place] [address]Agbwolh/Globulin [Mass ratio]1.6 {ratio}Normal1.1-2.2FKettering Health SpringfieldComment on above:Performed By: #### [id number] #### [facility] [address], [place] [address]Zpc Decr866 Int._Unit/NWbom30-52NkearoMemorial Health System [facility] Hospital Comment on above:Performed By: #### [id number] #### [facility] [address], [place] [address]OXB19 Int._Unit/LNormal6-46[facility] HospitalComment on above:Performed By: #### [id number] #### [facility] [address], [place] [address]Ghunr gap [Moles/Vol]12 mmol/LNormal6-16[facility] HospitalComment on above:Performed By: #### [id number] #### [facility] [address], [place] [address]CBY51 Int._Unit/LNormal5-43[facility] HospitalComment on above:Performed By: #### [id number] #### [facility] [address], [place] [address]Vaaw Total0.4 mg/dLNormal0.0-1.1FKettering Health Springfield Comment on above:Performed By: #### [id number] #### [facility] [address], [place] [address]DIC/Creat Ratio20 No DlycgExucxj98-77QgieiiMemorial Health System Marietta Memorial HospitalComment on above:Performed By: #### [id number] #### [facility] [address], [place] [address]Ociqxky [Mass/Vol]9.1 mg/dLNormal8.9-11.1FKettering Health SpringfieldComment on above:Performed By: #### [id number] #### [facility] [address], [place] [address]Fbhylysa [Moles/Vol]105 mmol/OUxkexe025-208WzzyazMemorial Health System Marietta Memorial HospitalComment on above:Performed By: #### [id number] #### [facility] [address], [place] [address]GG5 [Moles/Vol]26 mmol/UZvygho04-63ZrymrkMemorial Health System Marietta Memorial Hospital Comment on above:Performed By: #### [id number] #### [facility] [address], [place] [address]Kjeoxfevfy [Mass/Vol]0.9 mg/dLNormal0.5-1.3FKettering Health SpringfieldComment on above:Performed By: #### [id number] #### [facility] [address], [place] [address]Abcyjbtc (S) [Mass/Vol]2.4 g/dLNormal1.4-4.0[facility] HospitalComment on above:Performed By: #### [id number] #### [facility] [address], [place] [address]Hhbsmnk [Mass/Vol]114 mg/vNSjvdtt88-631FtxivxMemorial Health System Marietta Memorial HospitalComment on above:Performed By: #### [id number] #### [facility] [address], [place] [address]Yxjfslcwa [Moles/Vol]4.4 mmol/LNormal3.5-5.3FKettering Health SpringfieldComment on above:Performed By: #### [id number] #### [facility] [address], [place] [address]Lmmylvt [Mass/Vol]6.3 g/dLNormal6.0-7.8[facility] HospitalComment on above:Performed By: #### [id number] #### [facility] [address], [place] [address]Gkwqoh [Moles/Vol]139 mmol/OUbfooq621-277SwyserMemorial Health System Marietta Memorial HospitalComment on above:Performed By: #### [id number] #### [facility] [address], [place] [address]Wayy nitrogen [Mass/Vol]18 mg/dLNormal5-21[facility] HospitalComment on above:Performed By: #### [id number] #### [facility] [address], [place] [address]DjhG2whp 00-60-3226TsH2d (Bld) [Mass fraction]6.1 %High<=5.9 [facility] HospitalComment on above:Performed By: #### [id number] #### [facility] [address], [place] [address]Wmpkm Panelon 65-00-2915Zjayabhsylq [Mass/Vol]202 mg/dLHigh 120-200[facility] HospitalComment on above:Performed By: #### [id number] #### [facility] [address], [place] [address]Sjnnarlvhzs in HDL [Mass/Vol]55 mg/dLInvalid Interpretation CodeMemorial Health System Marietta Memorial HospitalComment on above:Result Comment: '>= 60 LOW RISK' '<= 40 HIGH RISK'Performed By: #### [id number] #### [facility] [address], [place] [address]Byabadnafao in LDL [Mass/Vol]124 mg/dLNormal<=129[facility] HospitalComment on above:Performed By: #### [id number] #### [facility] [address], [place] [address]Sagvanggocx in VLDL [Mass/Vol]46 mg/dLHigh7-40[facility] HospitalComment on above:Performed By: #### [id number] #### [facility] [address], [place] [address]Eavozfyhunnr [Mass/Vol]228 mg/dLHigh<=149[facility] HospitalComment on above:Performed By: #### [id number] #### [facility] [address], [place] [address]Kulyhbw D 25 Hydroxyon [id number] D 25 Rrfyxtd25.7 ng/mL Mdrwrp18.0-100.0[facility] HospitalComment on above:Performed By: #### [id number] #### [facility] [address], [place] [address]xHXWqn 89-37-2239pHHS17 mL/min/1.73 f1Ouywgq>=59[facility] HospitalComment on above:Performed By: #### [id number] #### [facility] [address], [place] [address]Zr Panel Informationon [id number] Castellon 04/14/2025 9:55 AM L Inj/Asp: bilateral knee on 04/14/2025 9:26 AM Indications: pain Details: 25 G needle, lateral approach Medications (Right): 2 mL betamethasone acetate-betamethasone sodium phosphate 6 (3-3) MG/ML Medications (Left): 2 mL betamethasone acetate-betamethasone sodium phosphate 6 (3-3) MG/ML Consent was given by the patient. Critical access hospitalXR Shoulder - right 2 Viewson [id number] Result: Examination of the x-rays, AP and lateral views of the right shoulder total of two views with permanent images are saved to the record, does show moderate acromioclavicular joint osteoarthritis. The acromiohumeral interval is well maintained. She does have a small calcification at the greater tuberosity area. No evidence of new or further finding of significance. [facility] Panel Informationon [id number] [place], [place] 03/15/2025 4:45 PM L Inj/Asp: R glenohumeral on 03/12/2025 11:11 AM Indications: pain and diagnostic evaluation Details: 22 G needle Medications: 1 mL betamethasone acetate-betamethasone sodium phosphate 6 (3-3) MG/ML [facility] HealthcareXR Shoulder - right 2 Viewson [id number] Study observation (narrative)[facility] HealthcareAmbulatory Visit Summaryon [id number] Visit SummaryAmbulatory Visit Summary SANDEE DAI :1950 Visit Date:02/02/2025 Ambulatory Visit Instructions Your Diagnosis Encounter for Medicare annual examination with abnormal findings Benign hypertension Hyperlipidemia GERD (gastroesophageal reflux disease) Breast cancer screening by mammogram Ovarian failure due to menopause Morbid obesity Your Care Team Attending Physician - aTyler Muller Primary Care Physician - Tayler Muller This Is Your Medications List aspirin (aspirin 325 mg Oral EC Tab) cholecalciferol (cholecalciferol 50,000 intl units oral capsule) famotidine (famotidine 40 mg Tab) glucosamine hydrOXYzine (hydrOXYzine hydrochloride 10 mg Tab) losartan (losartan 25 mg Tab) multivitamin with minerals (Multivitamin, Therapeutic w/ Minerals) omega-3 polyunsaturated fatty acids (Fish Oil 1200 mg oral capsule) omeprazole (omeprazole 40 mg Cap-DR) Procedures Performed Cataract extraction and insertion of intraocular lens (11/15/2020), Cataract extraction and insertion of intraocular lens (11/01/2020), Colonoscopy (06/11/2018), Achilles tendon repair. Discharge Vitals Heart Rate (Peripheral) 66 Blood Pressure 160/80 Height 64 in Height 162.6 cm Weight 241.847 lb Weight 109.7 kg BMI 41.49 What to do next Scheduled Follow-Up Appointments 2024 8:20 AM EDT With: Where: [address] [address]- Saturday 9:20 AM EDT With: Tayler Muller Where: [address] [address]- Saturday2025 9:30 AM EDT With: Where: [place] [id number]- Medications What How Much When Why Instructions Unchanged aspirin (aspirin 325 mg Oral EC Tab) 1 Tablets By Mouth Every day as needed for as neededfor pain Unchanged cholecalciferol (cholecalciferol 50,000 intl units oral capsule) 1 Capsules By Mouth Every week Vitamin D deficiency Unchanged famotidine (famotidine 40 mg Tab) 1 Tablets By Mouth Every day GERD (gastroesophageal reflux disease) Unchanged glucosamine Unchanged hydrOXYzine (hydrOXYzine hydrochloride 10 mg Tab) 2 Tablets By Mouth 4 times a day as needed for for itching Pruritus, unspecified Heart murmur, systolic BMI 40.0-44.9, adult Class 3 severeobesity due to excess calories with body mass index (BMI) of 40.0 to 44.9 in adult Nonsmoker Unchanged losartan (losartan 25 mg Tab) 1 Tablets By Mouth Every day Unchanged multivitamin with minerals (Multivitamin, Therapeutic w/ Minerals) 1 tab By Mouth Every day Unchanged omega-3 polyunsaturated fatty acids (Fish Oil 1200 mg oral capsule) 1 Capsules By Mouth Every day Unchanged omeprazole (omeprazole 40 mg Cap-DR) 1 Capsules By Mouth Every day Allergies alendronate (Hives, Rash) amoxicillin (Diarrhea) clindamycin (Diarrhea) Problems Ongoing - Any problem that you are currently receiving treatment for. Benign hypertension BMI 40.0-44.9, adult Diastolic dysfunction without heart failure GERD (gastroesophageal reflux disease) Heart murmur, systolic History of prediabetes Hyperlipidemia Lumbar radiculopathy Lymphedema Morbid obesity Obstructive sleep apnea Osteopenia Peripheral arterial disease Vitamin D deficiency Historical - Any problem that you are no longer receiving treatment for. Aneurysm of splenic artery Osteoarthritis Patient Survey You may receive a survey via text or e-mail asking about your office visit. Please share your experience with us by completing your survey. We appreciate your feedback and thank you for choosing us for your care. Education Materials Exercising to Lose Weight Getting regular exercise is important for everyone. It is especially important if you are overweight. Being overweight increases your risk of heart disease, stroke, diabetes, high blood pressure, andseveral types of cancer. Exercising, and reducing the [...] the more calories you burn. Exercise also: ??? Improves mood. ??? Reduces stress and tension. ??? Improves your overall fitness, flexibility, and endurance. ??? Increases bone strength. Moderate-intensity exercise Moderate-intensity exercise is any activity that gets you moving enough to burn at least three times more energy (calories) than if you were sitting. (more content not included)...[facility] Medicine Office/Clinic Noteon [id number] Medicine Office/Clinic NoteFanew [facility] Medicine Office/Clinic Note Chief Complaint Subsequent Medicare Wellness Review of Systems PHQ Score Initial Depression Screen Score: 2 SCORE Physical Exam Vitals & Measurements HR: 66(Peripheral) BP: 160/80 SpO2: 96% HT: 162.6 cm HT: 64 in WT: 109.7 kg WT: 241.847 lb BMI: 41.49 Assessment/Plan 1. Encounter for Medicare annual examination with abnormal findings (Z00.01: Encounter for general adult medical examination with abnormal findings) The patient was given a customized and personalized print out of all the current AHRQ USPSTF???s recommendations for preventative services and all current CDC recommended immunizations, relevant riskrecommendations and the following patient brochures were given. Reviewed Medicare Prevention Services checklist. CDC-Falls Prevention and home safety screening reviewed. Patient denies any falls in last 12 months, voices no worry about falling. Exhibits no problems with sitting, standing or ambulation. Patient aware with keeping walk way area free of clutter to prevent tripping and/or falling. [place] Advance Directives reviewed. Documents remain at home office, encouraged to bring in for scanning into chart. Patient denies any problems with ADL???s and Instrumental ADL???s. Cognitive screening completed with memory and clock face drawing. No deficits noted. Immunization record reviewed, Shingrix vaccines are UTD. 2 COVID vaccines have been administered, with 3 Boosters received. Allergies and medications reviewed and up to date. No concerns with taking medication as prescribed. Reviewed OTC medications, medication list up to date. Blood tests were reviewed: Discussed what tests need to be updated. Labs were ordered by pcp, will have completed prior to next PCP visit. Labs to be completed with [facility]. No concerns with bowel/ bladder. Colonoscopy last completed 06/11/[address] Juarez with 10 year repeat. Reviewed pain symptoms: chronic knee, rates pain as a 4 out of 10, no pain medications taken. Reviewed all outside providers that patient follows. Last visit summary notes available in chart and/or have been requested. Patient declines any signs or symptoms of depression at this time. 8 minutes spent with screening and documentation. PHQ2 screening score 2. Patient denies alcohol use. 8 minutes spent with screening and documentation. Audit score 0. Follow up scheduled with PCP, 04/27/2025 AWV has been scheduled, 02/02/2026 Abnormal findings with elevated BP Medicare provides yearly screening for alcohol and depression concerns. This is completed during our Medicare wellness visit for those who do not have a current diagnosis of depression or concerns with alcohol use. I spent a total of 17 minutes on this date of service which included preparing to see the patient, face to face patient care, completing clinical documentation, obtaining and/or reviewing separately obtained history, counseling and educating the patient with handouts. Explanations were provided with reviewing questionnaires. AUDIT risk assessment screening completed, risk score 0 with patient denying concerns with use. Completed PHQ-2 risk assessment for depression with risk score 3, negative findings. Patient has been reminded to notify the provider if there would be a change or concerns with symptoms with fear, unable to sleep, worrying too much or feeling down and/or sad with lost of interest with daily activities. Will continue to monitor with screening yearly during Medicare wellness visits. 2. Benign hypertension (I10: Essential (primary) hypertension) Patient is taking losartan daily as directed. Does not monitor BP pressure at home. HTN stoplight reviewed with BP goal to be <140/90. Reviewed different factors that can alter blood pressure readings. Education handout provided with s/s to monitor for and report to provider. Patient is encouraged to increase portions of fruit, vegetables, fiber and increase exercise as much as tolerable. Reviewed importance with monitoring foods high in salt content and encouraged to limit intake, if unsureencouraged to discuss with their PCP. Encouraged to eat more chicken, fish and lean white meats andlimits red meats in diet. Discussed importance with keeping BP under good control to reduce CVA risk factors. Will continue to f/u with PCP during office visits and as needed. Patient's blood pressures readings today were 154/60 in left arm. Patient reports a lot of stress at home with possibly looking at surgery. Blood pressure taken in right arm about 15 minutes huan 160/80. Patient denies signs or symptoms of heart attack. Patient reports that she knows it's stress and does not want to address any issues until she finds out what is going on with spouse. Patient provided with handout on signs of symptoms of heart attack, factors to reduce blood pressure, and patient encouraged to log blood pressures and call pcp if blood pressure does not improve. Patient voiced understandingand agreed. 3. Hyp (more content not included)...[facility] CenterComment on above:Result Comment: Electronically Signed By: Tayler Muller\.br\Date and Time Signed: 02/02/25 13:09 EDT\.br\Electronically Co-Signed By: Ashanti Keane\.br\Date and Time Co-Signed: 02/02/25 10:40 EDTNo Panel Informationon [id number] Pickens MA 11/13/2024 3:54 PM L Inj/Asp: bilateral knee on 11/13/2024 9:07 AM Indications: pain Details: 25 G needle, anterolateral approach Medications (Right): 12 mg betamethasone acetate-betamethasone sodium phosphate 6 (3-3) MG/ML Medications (Left): 12 mg betamethasone acetate-betamethasone sodium phosphate 6 (3-3) MG/ML Procedure, treatment alternatives, risks and benefits explained, specific risks discussed. Consent was given by the patient. Immediately prior to procedure a time out was called to verify the correct patient, procedure, equipment, ict customer support officer and site/side marked as required. Patient was prepped and draped in the usual sterile fashion. [facility] HealthcareRadiology Study observation (narrative)[facility] HealthcareXR Knee - left 3 Viewson [id number] Result: Bilateral standing PA, bilateral sunrise, and lateral of the affected knee were imaged today in the office. Patient has varus deformity of both knees with gdwx-lv-fomi medial compartment as well as advancing patellofemoral osteoarthritis of both knees no evidence of bony tumor acute fracture seen.Critical access hospitalXR Knee - right 3 Viewson [id number] Result: Bilateral standing PA, bilateral sunrise, and lateral of the affected knee were imaged today in the office. Patient has varus deformity of both knees with gmge-en-vulv medial compartment as well as advancing patellofemoral osteoarthritis of both knees no evidence of bony tumor acute fracture seen.Critical access hospitalAmbulatory Visit Summaryon [id number] Visit SummaryAmbulatory Visit Summary SANDEE DAI :1950 Visit Date:10/28/2024 Ambulatory Visit Instructions Your Diagnosis Benign hypertension Hyperlipidemia History of prediabetes Lymphedema Vitamin D deficiency Osteopenia Morbid obesity BMI 40.0-44.9, adult Your Care Team Attending Physician - Ellen Carlos Primary Care Physician - Daquan GRANADOS, Ellen Bonilla This Is Your Medications List aspirin (aspirin 325 mg Oral EC Tab) cholecalciferol (cholecalciferol 50,000 intl units oral capsule) famotidine (famotidine 40 mg Tab) glucosamine hydrOXYzine (hydrOXYzine hydrochloride 10 mg Tab) losartan (losartan 25 mg Tab) multivitamin with minerals (Multivitamin, Therapeutic w/ Minerals) omega-3 polyunsaturated fatty acids (Fish Oil 1200 mg oral capsule) omeprazole (omeprazole 40 mg Cap-DR) [Image Removed: STOP]Stop taking these medications calcium-vitamin D (calcium (as carbonate)-vitamin D 500 mg-200 intl units oral tablet) Procedures Performed Cataract extraction and insertion of intraocular lens (11/15/2020), Cataract extraction and insertion of intraocular lens (11/01/2020), Colonoscopy (06/11/2018), Achilles tendon repair. Discharge Vitals Temperature (Oral) 36.3 ???C Heart Rate (Peripheral) 71 Blood Pressure 140/82 Height 162.6 cm Height 64 in Weight 111.4 kg Weight 245.595 lb BMI 42.14 What to do next Scheduled Follow-Up Appointments Saturday 9:30 AM EST Where: [facility] [address], [place] [address]- You Need to Schedule the Following Appointments Follow Up with Daquan GRANADOS, Ellen Bonilla When: In 6 months Comments: [facility] Where: [address], [place] [address]- You Need to Complete the Following Comprehensive Metabolic Panel, Blood, Routine collect, 10/28/24, Order for future visit, Lab Collect, Benign hypertension, Not Required, Print Label By Order Location Lipid Panel, Blood, Routine collect, 10/28/24, Order for future visit, Lab Collect, Hyperlipidemia,Not Required, Print Label By Order Location Vitamin D 25 Hydroxy, Blood, Routine collect, 10/28/24, Order for future visit, Lab Collect, Vitamin D deficiency, Not Required, Print Label By Order Location Medications What How Much When Why Instructions New cholecalciferol (cholecalciferol 50,000 intl units oral capsule) 1 Capsules By Mouth Every weekVitamin D deficiency Refills: 1 Pickup at [facility]/pharmacy #[id number] Unchanged aspirin (aspirin 325 mg Oral EC Tab) 1 Tablets By Mouth Every day as needed for as neededfor pain Unchanged famotidine (famotidine 40 mg Tab) 1 Tablets By Mouth Every day GERD (gastroesophageal reflux disease) Unchanged glucosamine Unchanged hydrOXYzine (hydrOXYzine hydrochloride 10 mg Tab) 2 Tablets By Mouth 4 times a day as needed for for itching Pruritus, unspecified Heart murmur, systolic BMI 40.0-44.9, adult Class 3 severeobesity due to excess calories with body mass index (BMI) of 40.0 to 44.9 in adult Nonsmoker Unchanged losartan (losartan 25 mg Tab) 1 Tablets By Mouth Every day Unchanged multivitamin with minerals (Multivitamin, Therapeutic w/ Minerals) 1 tab By Mouth Every day Unchanged omega-3 polyunsaturated fatty acids (Fish Oil 1200 mg oral capsule) 1 Capsules By Mouth Every day Unchanged omeprazole (omeprazole 40 mg Cap-DR) 1 Capsules By Mouth Every day Pharmacy Information [facility]/pharmacy #[id number]: [address] [place], [place] [id number] [phone] What How Much When Comments Stop Taking calcium-vitamin D (calcium (as carbonate)-vitamin D 500 mg-200 intl units oral tablet) 1 Tablets By Mouth Every day Allergies alendronate (Hives, Rash) amoxicillin (Diarrhea) clindamycin (Diarrhea) Problems Ongoing - Any problem that you are currently receiving treatment for. Benign hypertension BMI 40.0-44.9, adult Diastolic dysfunction without heart failure GERD (gastroesophageal reflux disease) Heart murmur, systolic History of prediabetes Hyperlipidemia Lumbar radiculopathy Lymphedema Morbid obesity Obstructive sleep apnea Osteopenia Peripheral arterial disease Vitamin D deficiency Historical - Any problem that you are no longer receiving treatment for. Aneurysm of splenic artery Osteoarthritis Patient Survey You may receive a survey via text or e-mail asking about your office visit. Please share your experience with us by completing your survey. We appreciate your feedback and thank you for choosing us for your care. Education Materials Hypertension, Adult High blood pressure (hypertension) is when the force of blood pumping through the arteries is too strong. The arteries are the blood vessels that carry blood from the heart throughout the body. Hypertension forces the heart to work harder to pump blood and may cause arteries to become narrow or stiff. Untreated or uncontroll (more content not included)...[facility] Medicine Office/Clinic Noteon [id number] Medicine Office/Clinic NoteFanew [facility] Medicine Office/Clinic Note Chief Complaint pt here for 6 month f/u [facility] Staff Medicare wellness: utd Last routine labs: 10/23/24 smoker status: never Mammogram (qyr 40-54, q2yrs 55-75): utd colonoscopy/cologuard (45-75yo): utd DEXA (F>65, M>70): utd flu vaccine status: utd History of Present Illness Sandee is a 74 yo female presenting today for [facility] f/u Pt reports feeling good overall and denies any medical or mental health concerns at this time. No recent hospitalizations or ED/CC visits reported Negative ROS HTN Patient denies any CP, palpitations, SOB, acute injury/trauma, delirium, seizures, vision changes, nausea, vomiting, back pain, CARTY, dizziness or irritation at this time. Pt denies recent use of tobacco, decongestants/sudafed, albuterol, NSAIDs. Pt is taking medications as [...] HLD - taking omega 3 1200mg qd Chol: 180 mg/dL (10/23/24 08:37:00) HDL: 49 mg/dL (10/23/24 08:37:00) LDL Direct: 115 mg/dL (10/23/24 08:37:00) Tri mg/dL High (10/23/24 08:37:00) VLDL: 41 mg/dL High (10/23/24 08:37:00) Osteopenia- calcium and Vit D supplements. Last DEXA 08/22/23 Last Calcium mildly low at 8.7 and Vitamin D 25 Hydroxy: 25.7 ng/mL Low (10/23/24 08:37:00) Hx of preDM - not taking medication. Hgb A1C %: 5.6 % (10/23/24 08:37:00) lymphedema - follows with lymphedema clinic. Pt just received the pressure dressings on Saturday. Review of Systems PHQ Score Initial Depression Screen Score: 0 SCORE Physical Exam Vitals & Measurements T: 36.3 ???C(Oral) HR: 71(Peripheral) BP: 140/82 SpO2: 97% HT: 64 in HT: 162.6 cm WT: 111.4 kg WT: 245.595 lb BMI: 42.14 General: Well developed, well nourished, in no [...] Mouth: mucous membranes pink, moist and intact. [place] posterior oropharynx, no palatal inflammation,uvula midline, no cobble-stoning, no enlarged tonsils, no [...] normal. No erythema, edema, effusion, crepitus, or ecchymosis.Straight leg raise negative Extremity: No clubbing, cyanosis, edema, or deformity. Normal ROM with upper and lower extremities,bilaterally. Neurologic: Cranial nerves II-XII grossly intact. motor strength equal & normal bilaterally, sensation equal & normal bilaterally. Gait normal. Skin: No rashes, ulcerations, or suspicious lesions Mental Status: Alert and oriented x3. Normal mood and affect Assessment/Plan 1. Benign hypertension (I10: Essential (primary) hypertension) BP is stable counseled pt to continue to monitor BP at home, follow low salt/caffeine diet, increase physical activity as tolerated with goal 150mins/week. Discussed AHA BP guidelines Discussed HTN sx to report including but not limited to SOB, CP, CARTY, numbness/tingling, vision changes. Pt verbalized understanding. Continue BP meds: losartan 25mg qd f/u 6 mo Ordered: Comprehensive Metabolic Panel 2. Hyperlipidemia (E78.5: Hyperlipidemia, unspecified) Chol: 180 mg/dL (10/23/24 08:37:00) HDL: 49 mg/dL (10/23/24 08:37:00) LDL Direct: 115 mg/dL (10/23/24 08:37:00) Tri mg/dL High (10/23/24 08:37:00) VLDL: 41 mg/dL High (10/23/24 08:37:00) TG's remain elevated Pt encouraged to follow a diet that is low in saturated fat/cholesterol/fried foods. Eat a diet high in vegetables, fruits and whole grains with low fat dairy options and non-vegetableoils. Increase level of moderate exercise to 150 mins/week Avoid alcohol and smoking no longer taking the atorvastatin med changes: increase [place] 3 to 4000mg/day repeat lipid panel in 6 mo Ordered: Lipid Panel 3. History of prediabetes (Z87. (more content not included)...[facility] CenterComment on above:Result Comment: Electronically Signed By: Daquan GRANADOS, Ellen Bonilla\.marcia\Date and Time Signed: 10/28/24 09:11 EST .Interpretation:on [id number] Ab IA QlCommentInvalid Interpretation Code [facility] HospitalComment on above:Result Comment: Not infected with HCV unless early or acute infection is suspected (which may be delayed in an immunocompromised individual), or other evidence exists to indicate HCV infection. Performed at: [facility] [address] [id number] PhD Mercedes Yuformed By: #### [id number] #### [facility] [address], [place] [address]LML Antibody RFX to Quant PCRon [id number] IgG IA Ql Non-ReactiveInvalid Interpretation CodeNon [facility] Comment on above:Result Comment: Performed at: [facility] [address] [id number] PhD Mercedes Yuformed By: #### [id number] #### [facility] [address], [place] [address]ZAUVYWOYRBquvtvl By: SYSTEM SYSTEM on - hydroxyvitamin D3 [Mass/Vol]25.7 ng/mLLow30.0 - 100.0 ng/mLRemisol ChemAlbumin [Mass/Vol]3.7 g/dLNormal3.3 - 5.0 gm/dLRemisol ChemAlbumin/Globulin [Mass ratio] 1.4 {ratio}Normal1.1 - 2.2Remisol ChemALP [Catalytic activity/Vol]105 [iU]/dHigh 21 - 98 Int._Unit/LRemisol ChemALT No additional P-5'-P [Catalytic activity/Vol] 29 [iU]/dNormal6 - 46 Int._Unit/LRemisol ChemAnion gap [Moles/Vol]11 mmol/L Normal6 - 16 mEq/LRemisol ChemAST [Catalytic activity/Vol]20 [iU]/dNormal5 - 43 Int._Unit/LRemisol ChemBilirubin [Mass/Vol]0.3 mg/dLNormal0.0 - 1.1 mg/dLRemisol ChemCalcium [Mass/Vol]8.7 mg/dLLow8.9 - 11.1 mg/dLRemisol ChemChloride [Moles/Vol]109 mmol/TEbrvqj693 - 111 mmol/LRemisol ChemCholesterol [Mass/Vol]180 mg/pGScqeue602 - 200 mg/dLRemisol ChemCholesterol in HDL [Mass/Vol]49 mg/dL Invalid Interpretation CodeRemisol ChemComment on above:Result Comment: '>= 60 LOW RISK' '<= 40 HIGH RISK'Cholesterol in LDL [Mass/Vol]115 mg/dLNormal<=129mg/dLRemisol ChemCholesterol in VLDL [Mass/Vol]41 mg/dLHigh7 - 40 mg/dLRemisol ChemCO2 [Moles/Vol]25 mmol/ABhniha16 - 31 mmol/LRemisol ChemCreatinine [Mass/Vol]0.7 mg/dLNormal0.5 - 1.3 mg/dLRemisol XzwcgKOS71 mL/min/1.73 j8Pjbsbn>=59mL/min/1.73 a7Vgkbweo ChemGlobulin (S) [Mass/Vol]2.6 g/dLNormal1.4 - 4.0 gm/dLRemisol Chem Glucose [Mass/Vol]107 mg/lDHfealv36 - 199 mg/dLRemisol ChemPotassium [Moles/Vol] 4.2 mmol/LNormal3.5 - 5.3 mmol/LRemisol ChemProtein [Mass/Vol]6.3 g/dLNormal6.0 - 7.8 gm/dLRemisol ChemSodium [Moles/Vol]141 mmol/XGytpcr435 - 145 mmol/LRemisol ChemTriglyceride [Mass/Vol]206 mg/dLHigh<=149mg/dLRemisol ChemUrea nitrogen [Mass/Vol]16 mg/dLNormal5 - 21 mg/dLRemisol ChemUrea nitrogen/Creatinine [Mass ratio]23 mg/awSvri00 - 20Remisol ChemCHEMISTRYOrdered By: Cristina Larose on 12-78-0895GsY4c (Bld) [Mass fraction]5.6 %Normal<=5.9%[facility] ChemAutoSSCMPon 29-64-1540Yxxwxhr [Mass/Vol]3.7 g/dLNormal3.3-5.0[facility] Comment on above:Performed By: #### [id number] #### [facility] [address], [place] [address]Rkmwkge/Globulin (S) [Mass conc ratio]1.7Ftuufm2.1-2.2FKettering Health SpringfieldComment on above:Performed By: #### [id number] #### [facility] [address], [place] [address]EJJ [Catalytic activity/Vol]105 Int._Unit/CAuof55-53NmfavlMemorial Health System Marietta Memorial HospitalComment on above:Performed By: #### [id number] #### [facility] [address], [place] [address]KSW No additional P-5'-P [Catalytic activity/Vol]29 Int._Unit/L Normal6-46[facility] HospitalComment on above:Performed By: #### [id number] #### [facility] [address], [place] [address]Pydid gap [Moles/Vol]11 mmol/LNormal6-16[facility] Memorial HospitalComment on above:Performed By: #### [id number] #### [facility] [address], [place] [address]ZLX [Catalytic activity/Vol]20 Int._Unit/LNormal5-43[facility] Memorial HospitalComment on above:Performed By: #### [id number] #### [facility] [address], [place] [address]Twvutlzhd [Mass/Vol]0.3 mg/dLNormal0.0-1.1FKettering Health SpringfieldComment on above:Performed By: #### [id number] #### [facility] [address], [place] [address]Zhvewhx [Mass/Vol]8.7 mg/dLLow8.9-11.1FKettering Health SpringfieldComment on above:Performed By: #### [id number] #### [facility] [address], [place] [address]Bkjxgitf [Moles/Vol]109 mmol/QQdbkxq468-015QsbkcgMemorial Health System Marietta Memorial HospitalComment on above:Performed By: #### [id number] #### [facility] [address], [place] [address]SB1 [Moles/Vol]25 mmol/XQkoufh39-36TcafzyMemorial Health System Marietta [facility] Hospital Comment on above:Performed By: #### [id number] #### [facility] [address], [place] [address]Ajxvstlnau [Mass/Vol]0.7 mg/dLNormal0.5-1.3FKettering Health SpringfieldComment on above:Performed By: #### [id number] #### [facility] [address], [place] [address]Xkudupnp (S) [Mass/Vol]2.6 g/dLNormal1.4-4.0[facility] HospitalComment on above:Performed By: #### [id number] #### [facility] [address], [place] [address]Paofgvi [Mass/Vol]107 mg/nONsojrc53-333YtsxavMemorial Health System Marietta Memorial HospitalComment on above:Performed By: #### [id number] #### [facility] [address], [place] [address]Kvzyvorha [Moles/Vol]4.2 mmol/LNormal3.5-5.3FKettering Health SpringfieldComment on above:Performed By: #### [id number] #### [facility] [address], [place] [address]Mpxlebp [Mass/Vol]6.3 g/dLNormal6.0-7.8[facility] HospitalComment on above:Performed By: #### [id number] #### [facility] [address], [place] [address]Nrusdx [Moles/Vol]141 mmol/YHvllft995-884CnycxbMemorial Health System Marietta Memorial HospitalComment on above:Performed By: #### [id number] #### [facility] [address], [place] [address]Lkti nitrogen [Mass/Vol]16 mg/dLNormal5-21[facility] HospitalComment on above:Performed By: #### [id number] #### [facility] [address], [place] [address]Thpm nitrogen/Creatinine [Mass ratio]23 No ZfqbpEyuo19-41HxzkhyMemorial Health System Marietta Memorial HospitalComment on above:Performed By: #### [id number] #### [facility] [address], [place] [address]XosL2orh 31-71-2874FpX4k (Bld) [Mass fraction]5.6 %Normal<=5.9 [facility] HospitalComment on above:Performed By: #### [id number] #### [facility] [address], [place] [address]Wolty Panelon 78-48-8159Hrxpbupiitj [Mass/Vol]180 mg/dLNormal 120-200[facility] HospitalComment on above:Performed By: #### [id number] #### [facility] [address], [place] [address]Buicyquerhw in HDL [Mass/Vol]49 mg/dLInvalid Interpretation CodeMemorial Health System Marietta Memorial HospitalComment on above:Result Comment: '>= 60 LOW RISK' '<= 40 HIGH RISK'Performed By: #### [id number] #### [facility] [address], [place] [address]Isoiwnudgca in LDL [Mass/Vol]115 mg/dLNormal<=129[facility] HospitalComment on above:Performed By: #### [id number] #### [facility] [address], [place] [address]Rlsbsudzuut in VLDL [Mass/Vol]41 mg/dLHigh7-40[facility] HospitalComment on above:Performed By: #### [id number] #### [facility] [address], [place] [address]Pvbummdnkadj [Mass/Vol]206 mg/dLHigh<=149[facility] Memorial HospitalComment on above:Performed By: #### [id number] #### [facility] [address], [place] [address]Mvroirr D 25 Hydroxyon [id number]-yfzrwframltbnk D3 [Mass/Vol]25.7 ng/mLLow30.0-100.0[facility] HospitalComment on above: Performed By: #### [id number] #### [facility] [address], [place] [address]tZGJjp 58-74-7724xFWR52 mL/min/1.73 r3Znzvao>=59[facility] Memorial HospitalComment on above:Performed By: #### [id number] #### [facility] [address], [place] [address]Tstgytba Pathology Reporton [id number] Pathology Report [address] [address]- Surgical Pathology Report Collected Date/Time: 08/27/2024 13:50 EDT Pathologist: Norberto ALLISON PhD, Nancy Dhillon Date/Time: 08/27/2024 18:00 EDT Dolshahana DPM, Danish Carballo DPM, Danish Reynolds Surgical Pathology [...] cm. Fragments are serially sectioned and a hvac sales representative portion is submitted in two cassettes. (DC) DC:[facility] Microscopic Description Microscopic examination performed unless gross only specified.[facility] CenterComment on above:Performed By: #### [id number] #### [facility] [address] [place], [place] [address]Jboiyg Medicine Office/Clinic Noteon [id number] Medicine Office/Clinic NoteFanew [facility] Medicine Office/Clinic Note Chief Complaint The patient [...] just digging at her legs, they are offand she can't even stand a sheet over [...] for extended periods due to discomfort and itching.Compression sleeves have been suggested as an alternative management approach, for which she anticipates improvement. Additionally, the patient notes a previous episode of cellulitis in the left leg,which set back her lymphedema treatment but has [...] level of consciousness appropriate for age, CN II- XII intact, motor strength equal & normal bilaterally, [...] itching, # 80 tab(s), Refills(s) 0, Pharmacy: [facility]/pharmacy #[id number], 162.6, cm, 08/24/24 14:50:00 EDT, Height/Length Dosing, 113.8, kg, 08/24/24 14:50:00 EDT, Weight Dosing 2. Heart murmur, systolic (R01.1: Cardiac murmur, unspecified) Known. Ordered: hydrOXYzine, 20 mg = 2 tab(s), Oral, QID, PRN for itching, # 80 tab(s), Refills(s) 0, Pharmacy: [facility]/pharmacy #[id number], 162.6, cm, 08/24/24 14:50:00 EDT, Height/Length Dosing, 113.8, kg, 08/24/24 14:50:00 EDT, Weight Dosing 3. BMI 40.0-44.9, adult (Z68.41: Body mass index [BMI] 40.0-44.9, adult) BMI education added. Ordered: hydrOXYzine, 20 mg = 2 tab(s), Oral, QID, PRN for itching, # 80 tab(s), Refills(s) 0, Pharmacy: [facility]/pharmacy #[id number], 162.6, cm, 08/24/24 14:50:00 EDT, [...] itching, # 80 tab(s), Refills(s) 0, Pharmacy: [facility]/pharmacy #[id number], 162.6, cm, 08/24/24 14:50:00 EDT, Height/Length Dosing, 113.8, kg, 08/24/24 14:50:00 EDT, Weight Dosing 5. Nonsmoker (Z78.9: Other specified health status) Please continue to not smoke. Ordered: hydrOXYzine, 20 mg = 2 tab(s), Oral, QID, PRN fo (more content not included)... [facility] CenterComment on above:Result Comment: Electronically Signed By: Henrik ALLISON, Aden Galloway.br\Date and Time Signed: 08/24/24 15:08 EDT Ambulatory Visit Summaryon 74-01-6468Dvtdvedios Visit SummaryAmbulatory Visit Summary SANDEE DAI :1950 Visit Date:08/18/2024 Ambulatory Visit Instructions Your Diagnosis Pre-op exam Non-smoker BMI 40.0-44.9, adult Class 2 severe obesity due to excess calories with serious comorbidity and body mass index (BMI) of35.0 to 35.9 in adult Your Care Team [...] 8:00 AM EST With: Ellen Carlos Where: [facility] [address], [facility] [place] [address]- Saturday 9:30 AM EST With: Where: [facility] [address] [facility], [facility] [place] [address]- Medications What How Much When Why Instructions Unchanged aspirin (aspirin 325 mg Oral EC Tab) 1 Tablets By Mouth Every day as needed for as neededfor pain Unchanged calcium-vitamin D (calcium (as carbonate)-vitamin [...] you for choosing us for your care. [facility] Medicine Office/Clinic Noteon 49-25-1162Eptfqy Medicine Office/Clinic NoteLahey [facility] Medicine Office/Clinic Note HPI Staff Sandee is a 74 year old female presenting with clearance surgery Daquan patient Date of surgery: 08/27/24 Surgeon: Dr. Carballo [facility] Type of Surgery: right Achilles rupture repair Pre Surgery [facility] 08/14/24- Done Labs, EKG, Chest Xray [...] op exam. had all testing done at [facility]. all tests were reviewed. physical exam WNL. pt is doing well. denies needs at this time. will send letter to Dr. Carballo. 2. Non-smoker (Z78.9: Other specified health status) continue not smoking 3. BMI 40.0-44.9, adult (Z68.41: Body mass index [BMI] 40.0-44.9, adult) BMI education given 4. Class 2 severe obesity due to excess calories with serious comorbidity and body mass index (BMI)of 35.0 to 35.9 in adult (E66.01: Morbid [...] virus vaccine, inactivated 08/01/2023 Recorded SARS-CoV-2 (COVID-19) mRNAMUL.ORD![id number] 09/27/2022 Recorded 2023-10-22: TPV70 influenza virus vaccine, [...] inactivated 12/03/2012 Recorded zoster vaccine live 11/05/2012 RecordedTrumbull Regional Medical CenterComment on above:Result Comment: Electronically Signed By: Tayler Muller\.br\Date and Time Signed: 08/18/24 15:26 EDTProvider Letteron 45-20-3632Pjrlnwag Letter Provider Letter [address] [place] [address] August 18, 2024 SANDEE DAI [address] [address] : [address] Carballo, The above patient has been evaluated at your request for preoperative clearance. After assessment of available pertinent labs and diagnostic tests, I feel this patient is medicallyoptimized for surgery. Final discretion of whether the patient is cleared for surgery remains up tothe surgeon/anesthesiologist. Thank you, Tayler Vega, CORNER BRACE BLOCK MACHINE OPERATOR-[facility] Medical CenterXR CHEST 2Von 35-75-0982[place], [place] [address] XRay Report Signed Patient: SANDEE DAI MR#: [id number] : 1950 Acct:[id number] Age/Sex: 74 / F ADM Date: 08/14/24 Loc: RAD Attending Dr: DANISH CARBALLO M.D. Ordering Physician: DANISH CARBALLO M.D. Date of Service: 08/14/24 Procedure(s): XR chest 2V Accession Number(s): [id number] cc: DANISH CARBALLO M.D.; Ellen Butt APRN [facility] [place] [id number] Patient Name: SANDEE DAI MRN: [id number] date: 1950 Sex: F Assigned Patient Location: [facility] Current Patient Location: [facility] Accession/Order Number: [id number] Exam Date: 08/14/2024 09:50 Report Date: 08/17/2024 08:30 At the request of: DANISH CARBALLO Procedure: XR chest 2V EXAM: XR chest 2V HISTORY: PRE-OP EXAMINATION COMPARISON: None. TECHNIQUE: 2 views. FINDINGS: The heart and mediastinum are unremarkable. Lungs are clear. No focal infiltrates are seen. XR/XR chest 2V IMPRESSION: No acute findings. No focal infiltrate. No effusions. Electronically authenticated by: Sheryl PATRICK Date: 08/17/2024 08:30 Dictated By: Sheryl Patrick M.D. Signed By: 08/17/24832 DD/ 9 TD/TT: Supervisor Lending Activities:REVAadiologCyril gibbons MD - 08/17/2024 [place] [address] XRay Report Signed Patient: SANDEE DAI MR#: [id number] : 1950 Acct:[id number] Age/Sex: 74 / F ADM Date: 08/14/24 Loc: RAD Attending Dr: DANISH CARBALLO M.D. Ordering Physician: DANISH CARBALLO M.D. Date of Service: 08/14/24 Procedure(s): XR chest 2V Accession Number(s): [id number] cc: DANISH CARBALLO M.D.; Ellen Butt APRN [facility] [place] [address] Patient Name: SANDEE DAI MRN: [id number] date: 1950 Sex: F Assigned Patient Location: [facility] Current Patient Location: [facility] Accession/Order Number: [id number] Exam Date: 08/14/2024 09:50 Report Date: 08/17/2024 08:30 At the request of: DANISH CARBALLO Procedure: XR chest 2V EXAM: XR chest 2V HISTORY: PRE-OP EXAMINATION COMPARISON: None. TECHNIQUE: 2 views. FINDINGS: The heart and mediastinum are unremarkable. Lungs are clear. No focal infiltrates are seen. XR/XR chest 2V IMPRESSION: No acute findings. No focal infiltrate. No effusions. Electronically authenticated by: Sheryl PATRICK Date: 08/17/2024 08:30 Dictated By: Sheryl Patrick M.D. Signed By: 08/17/24832 DD/ 9 TD/TT: Supervisor Lending Activities: SARAH HealthcareRadiology Study observation (narrative)NOMS HealthcareXR CHEST 2V Ordered By: Radiologist Radiology on 67-20-4275OQSX Teamo.ru Work Phone: all CBC WITH AUTO DIFFon 43-50-5018OVQVGAPUA ABSOLUTE AUTO0.1NOMS HealthcareBasophils/100 WBC (Bld)0.8 %0.2 - 2.0 %[facility] Eosinophils/100 WBC (Bld)3.4 %0.9 - 7.0 %NOMS HealthcareErythrocyte distribution width (RBC) [Ratio]13.9 %11.0 - 15.0 %NOMS HealthcareHematocrit (Bld) [Volume fraction]39.1 %36.0 - 48.0 %NOMCox SouthHemoglobin (Bld) [Mass/Vol]12.7 g/dL 12.0 - 16.0 g/dLNOCarondelet HealthIMMATURE GRANULOCYTES ABS AUTO0.04HighNOIN HealthcareImmature granulocytes/100 WBC (Bld)0.5 %0.0 - 0.5 %[facility] Interpretation and review of laboratory resultsAbnormalNOCarondelet Health LYMPHOCYTES ABSOLUTE AUTO1.4NOMS [facility] CampusLymphocytes/100 WBC (Bld)16.5 %Low 20.5 - 60.0 %[facility] HospitalH (RBC) [Entitic mass]28.2 pg26.7 - 34.0 pgNOKansas City VA Medical CenterHC (RBC) [Mass/Vol]32.5 g/dL29.9 - 35.2 g/dLNOCarondelet HealthMCV (RBC) [Entitic vol]86.7 fL81.0 - 99.0 fLNOIN HealthcareMONOCYTES ABSOLUTE AUTO0.6NOMS HealthcareMonocytes/100 WBC (Bld)6.7 %1.7 - 12.0 %NOM HealthcareNEUTROPHILS ABSOLUTE AUTO6.3NOMS HealthcareNeutrophils/100 WBC (Bld)72.1 %43.0 - 75.0 %[facility] Medical CenterPlatelet mean volume (Bld) [Entitic vol]10.3 fL9.5 - 13.5 fLNOMS [facility] South CampusTBH EO #0.3NOMS HealthcareTB OQA840ZAXB [facility] South CampusTB RBC4.51NOMS [facility] South CampusTB WBC8.7NOMS HealthcareCLINISYNCNOMS HealthcareECG 12-LEADon 70-33-5827[address] [address] Electrocardiograph Report Signed Patient: SANDEE DAI MR#: [id number] : 1950 Acct:[id number] Age/Sex: 74 / F ADM Date: 08/14/24 Loc: RAD Attending Dr: DANISH CARBALLO M.D. Ordering Physician: DANISH CARBALLO M.D. Date of Service: 08/14/24 Procedure(s): ECG 12 lead Accession Number(s): [id number] cc: [facility] Test Date: 2024-08-14 Pat Name: SANDEE DAI Department: Room: - Gender: Female Clinic Nurse: : 1950 Requested By: GURWINDER ALVAREZ Order Number: [id number] Reading MD: MARK REYNOSO Measurements Intervals [place] Rate: 77 P: 59 NV: 187 QRS: 56 QRSD: 100 T: 54 QT: 345 QTc: 391 Interpretive Statements SINUS RHYTHM No previous ECG available for comparison Electronically Signed On 08-14-2024 18:35:10 EDT by MARK REYNOSO Dictated By: Mark Reynoso D.O. Signed By: 08/14/24183408/14/24 183 DD/ 1001 TD/TT: Supervisor Lending Activities:TBHRadiology, Radiologist, - 08/14/2024 [place] [address] Electrocardiograph Report Signed Patient: SANDEE DAI MR#: [id number] : 1950 Acct:[id number] Age/Sex: 74 / F ADM Date: 08/14/24 Loc: RAD Attending Dr: DANISH CARBALLO M.D. Ordering Physician: DANISH CARBALLO M.D. Date of Service: 08/14/24 Procedure(s): ECG 12 lead Accession Number(s): [id number] cc: [facility] Test Date: 2024-08-14 Pat Name: SANDEE DAI Department: Room: - Gender: Female Clinic Nurse: : 1950 Requested By: GURWINDER ALVAREZ Order Number: [id number] Reading MD: MARK REYNOSO Measurements Intervals [place] Rate: 77 P: 59 NV: 187 QRS: 56 QRSD: 100 T: 54 QT: 345 QTc: 391 Interpretive Statements SINUS RHYTHM No previous ECG available for comparison Electronically Signed On 08-14-2024 18:35:10 EDT by MARK REYNOSO Dictated By: Mark Reynoso D.O. Signed By: 08/14/24183408/14/241834 DD/ 1001 TD/TT: Supervisor Lending Activities: SARAH HealthcareRadiology Study observation (narrative)[facility] HealthcareECG 12-LEAD Ordered By: Radiologist Radiology on 82-93-9933MXXT Healthcare Work Phone: [facility] Medicine Office/Clinic Noteon 20-14-3988Mwklki Medicine Office/Clinic NoteFanew england rehabilitation hospital [facility] Medicine Office/Clinic Note HPI Staff Sandee is [...] took off bandage on her leg and saidnot to put anything on it until it [...] RTC if no improvement next week. Ordered: sulfamethoxazole-trimethoprim, 1 tab(s), Oral, BID for 10 day(s), 20 tab(s), Refill(s) 0, [id number], 162.6, cm, 07/17/24 13:02:00 EDT, Height/Length Dosing, 113.4, kg, 07/17/24 13:02:00 EDT,Weight Dosing 2. Non-smoker (Z78.9: Other specified health status) continue not smoking Ordered: sulfamethoxazole-trimethoprim, 1 tab(s), Oral, BID for 10 day(s), 20 tab(s), Refill(s) 0, [facility], 162.6, cm, 07/17/24 13:02:00 EDT, Height/Length Dosing, 113.4, kg, 07/17/24 13:02:00 EDT,Weight Dosing Body Mass Index (BMI) documented 3008F [...] [BMI] 40.0-44.9, adult) BMI eduction given Ordered: sulfamethoxazole-trimethoprim, 1 tab(s), Oral, BID for 10 day(s), 20 tab(s), Refill(s) 0, [facility], 162.6, cm, 07/17/24 13:02:00 EDT, Height/Length Dosing, 113.4, kg, 07/17/24 13:02:00 EDT,Weight Dosing Body Mass Index (BMI) documented 3008F [...] with serious comorbidity and body mass index (BMI)of 35.0 to 35.9 in adult (E66.01: Morbid (severe) obesity due to excess calories) see above Ordered: sulfamethoxazole-trimethoprim, 1 tab(s), Oral, BID for 10 day(s), 20 tab(s), Refill(s) 0, [facility] #6177, 162.6, cm, 07/17/24 13:02:00 EDT, Height/Length Dosing, 113.4, kg, 07/17/24 13:02:00 EDT,Weight Dosing Body Mass Index (BMI) documented 3008F [...] and insertion of intrao (more content not included)...[facility] CenterComment on above:Result Comment: Electronically Signed By: Tayler Muller\.marcia\Date and Time Signed: 07/17/24 13:33 EDTCoding Summary.on 14-97-0262Lrvtvj Summary. NTNSCtcq79ZDx1wVb+PGhlYWQ+UG0UPUAyZ21brTQbuI4fI6NSUNwTUzfbASLYVOoEUzEjbiNmQA5klQ NjZXJu [file] K19mcZGyj0L9D (more content not included)...[facility] Consent for Treatmenton 13-72-2622Pjvpevy for Treatment [id number]#1.00TIFFNormalMemorial Health System Marietta Memorial HospitalHeart and Vascular Office/Clinic Noteon 77-98-8130Dfein and Vascular Office/Clinic NoteChief Complaint PAD- Hasn't been seen since 05/2022 [...] She has not been going there recently. Hecontinues to have symptoms with swelling and redness. I encouraged her [facility]. I gave her referral. Review of Systems [...] bruising tendency, no petechiae, no swollen nodes Allergy/Immunologic: no seasonal allergies, no food allergies, no recurrent infections, no impairedimmunity Additional ROS info: Except as noted in [...] for age, motor strength equal & normal bilaterally,sensation equal & normal bilaterally, speech normal Psychiatric: [...] virus vaccine, inactivated 08/01/2023 Recorded SARS-CoV-2 (COVID-19) mRNAMUL.ORD!h02557 09/27/2022 Recorded 2023-10-22: TPV70 influenza virus vaccine, inactivated 09/13/2022 Recorded SARS-CoV-2 (COVID-19) mRNA-1273 vaccine 06/28/2022 Recorded 2023-10-22: TPV70 SARS-CoV-2 (COVID-19) mRNA-1273 v (more content not included)...[facility] Medical CenterComment on above:Result Comment: Electronically Signed By: Noman ALLISON, Isela Johnson\.br\Date and Time Signed: 05/04/24 08:43 EDTPhysician Order on 66-30-3506Fefwlnyyh [id number]#1.00TIFF [facility] Medical CenterAmbulatory Visit Summaryon 03-68-8571Aqhzwwxhfe Visit Summary SANDEE DAI :1950 Visit Date:04/08/2024 [...] 8:00 AM EST With: Ellen Carlos [facility] Interpretation [address], [place] [address]- \.br\ You Need to Schedule the FollowingAppointments\.br\ Follow Up with Ellen Carlos When: In 6 months\.br\ Comments:\.br\CCM\.br\ Where:\.br\ [address], [address]br\ [place] [address]-\.br\ \.br\ YouNeed to Complete the Following\.br\ Comprehensive Metabolic Panel, Blood, Routine collect, 04/08/24, Order for future visit, Lab Collect, Routine adult health maintenanceSt. [facility] Medicine Office/Clinic Noteon 35-83-3160Gieujt Medicine Office/Clinic NoteChief Complaint pt here for wellness. wants ears checked, feels plugged. [facility] Staff Medicare wellness: utd Last routine labs: 01/26/24 smoker status: never Mammogram (qyr 45-54, q2yrs 55-75): utd colonoscopy/cologuard (45-75yo): utd DEXA (F>65, M>70): utd History [...] bleeding tendency, bruising tendency, petechia, swollen/tender nodes Allergy/immunologic: no seasonal allergies, food allergies, recurrent infection, [...] time. Pt denies recent use of tobacco, decongestants/sudafed, albuterol, NSAIDs. 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 [place] posterior oropharynx, no palatal inflammation,uvula midline, no cobble-stoning, no enlarged tonsils, no [...] normal. No erythema, edema, effusion, crepitus, or ecchymosis.Straight leg raise negative Extremity: No clubbing, cyanosis, edema, or deformity. Normal ROM with upper and lower extremities,bilaterally. Neurologic: Cranial nerves II-XII grossly intact. motor strength equal & normal bilaterally, sensation equal & normal bilaterally. Gait normal. Skin: No rashes, ulcerations, or suspicious lesions Mental Status: Alert and oriented x3. Normal mood and affect Assessment/Plan 1. Left ear impacted cerumen (H61.22: Impacted cerumen, left ear) Earwax removal done (more content not included)...[facility] Medical CenterComment on above:Result Comment: Electronically Signed By: Daquan GRANADOS, Ellen Bonilla\.br\Date and Time Signed: 04/08/24 10:50 EDTPhysician Referralon 17-66-6578Smxdshtmz [id number]#1.00TIFF [facility] Medical CenterConsultation Noteon 63-81-2718Dvwgjgtffoit Note [id number]#1.00TIFFNoCommunity Regional Medical CenterCB w/ Auto Diffon 52-58-3913Txureektk/100 WBC (Bld)1.0 %Normal0.0-2.0 [facility] Memorial HospitalComment on above:Performed By: #### 5428253, 92535900, 019574627, 952680560, 7639515, 7028699 ####[facility] [address] [place], [place] [address]Lfqglhonp/Leukocytes Auto (Bld) [Pure # fraction]0.1 E9/LNormal0.0-0.2FKettering Health SpringfieldComment on above: Performed By: #### 4140064, 01908190, 287416711, 476105438, 6250575, 3277683 ####[facility] [address] [place] [address] Eosinophils (Bld) [#/Vol]0.6 E9/LHigh0.0-0.5FKettering Health SpringfieldComment on above:Performed By: #### 1139583, 64164622, 210433770, 234534026, 0312756, 9370972 ####[address] [address]Rbmgariysnp/100 WBC (Bld)7.2 %Normal0.0-8.0[facility] Comment on above:Performed By: #### 2886381, 16256316, 795156801, 586163218, 9248864, 9144176 ####[address] [address]Wbpwladkffu distribution width (RBC) [Ratio]13.6 %Normal 10.9-14.2FKettering Health SpringfieldComment on above:Performed By: #### 9299289, 55867515, 681634086, 621347854, 5027182, 5334630 ####[address] [address]Lqcbpvpfux (Bld) [Volume fraction]38.1 %Kukxcj52.0-46.0[facility] Memorial HospitalComment on above: Performed By: #### 0189137, 06335432, 099561141, 720479716, 0918140, 6218101 ####[address] [address] Hemoglobin (Bld) [Mass/Vol]12.7 g/nYBlxgex62.0-16.0[facility] Comment on above:Performed By: #### 3118816, 15376710, 543139325, 337000640, 1260996, 4377691 ####[address] [address]Fywnokbwqva (Bld) [#/Vol]1.6 E9/LNormal1.0-4.0[facility] Memorial HospitalComment on above:Performed By: #### 5636289, 87265853, 194498788, 357653520, 6073817, 9088188 ####[address] [address]Wmjiojfshjr/100 WBC (Bld)20.5 %Yuwxjj93.0-50.0 [facility] Memorial HospitalComment on above:Performed By: #### 0869458, 14526892, 510495612, 389267999, 0276762, 6153950 ####[address] [address]ZFK (RBC) [Entitic mass]28.3 pg Xgzrvv37.0-34.0[facility] Memorial HospitalComment on above:Performed By: #### 6364927, 10170578, 730619109, 483934080, 3690416, 1429485 ####[address] [address]UQMB (RBC) [Mass/Vol] 33.3 g/nQSbruij44.4-36.0[facility] HospitalComment on above:Performed By: #### 5175441, 29691148, 935450537, 189309862, 8634951, 6555953 ####[address] [address]CWE (RBC) [Entitic vol]85.0 hXUvjswj19.0-100.0[facility] Memorial HospitalComment on above: Performed By: #### 9262591, 09719398, 838262124, 164515833, 5225812, 0334985 ####[address] [address] Monocytes (Bld) [#/Vol]0.9 E9/LNormal0.2-1.0[facility] HospitalComment on above:Performed By: #### 9067672, 46490000, 592313584, 119303946, 5170771, 2021160 ####[address] [address]Pcmboitsomp (Bld) [#/Vol]4.7 E9/LNormal2.0-7.5FKettering Health Springfield Comment on above:Performed By: #### 0543020, 91893284, 189775522, 902212621, 5981589, 1260614 ####[address] [address]Vuarqfdufrr/100 WBC (Bld)59.8 %Wmpfml39.0-75.0[facility] HospitalComment on above:Performed By: #### 0825329, 76129056, 659496082, 336495590, 2665140, 1266297 ####[address] [address]Wlrxsquf573.0 E9/EVdcwgc541.0-500.0[facility] Memorial HospitalComment on above:Performed By: #### 2058098, 96701066, 209808792, 733397492, 0882016, 6055470 ####[address] [address]Hotmzjyk mean volume (Bld) [Entitic vol]8.2 fL Normal6.4-10.8[facility] Memorial HospitalComment on above:Performed By: #### 7340338, 88978870, 018719102, 887627160, 8908394, 2952852 ####[address] [address]GYM (Bld) [#/Vol]4.5 E12/LNormal4.3-5.9[facility] Memorial HospitalComment on above:Performed By: #### 8559508, 26512121, 366850470, 048095211, 4760621, 9006147 ####[address] [address]HLA corrected for nucl RBC Auto (Bld) [#/Vol]7.8 E9/LNormal4.0-11.0[facility] Memorial HospitalComment on above:Performed By: #### 2996964, 30688456, 026020223, 554781603, 2916840, 7704861 ####Post [facility] [address] [place], [place] [address]YGSCZUIMWPmhhwgz By: SYSTEM SYSTEM on 537573-vlhtnaatlmxfdk D3 [Mass/Vol]27.7 ng/mLLow30.0 - 100.0 ng/mLRemisol ChemAlbumin [Mass/Vol]4.1 g/dL Normal3.3 - 5.0 gm/dLRemisol ChemAlbumin/Globulin [Mass ratio]1.5 {ratio}Normal 1.1 - 2.2Remisol ChemALP [Catalytic activity/Vol]108 [iU]/dHigh21 - 98 Int._Unit/LRemisol ChemALT No additional P-5'-P [Catalytic activity/Vol]31 [iU]/dNormal6 - 46 Int._Unit/LRemisol ChemAnion gap [Moles/Vol]13 mmol/LNormal6 - 16 mEq/LRemisol ChemAST [Catalytic activity/Vol]19 [iU]/dNormal5 - 43 Int._Unit/LRemisol ChemBilirubin [Mass/Vol]0.4 mg/dLNormal0.0 - 1.1 mg/dLRemisol ChemCalcium [Mass/Vol]9.2 mg/dLNormal8.9 - 11.1 mg/dLRemisol ChemChloride [Moles/Vol]106 mmol/CVphzbt634 - 111 mmol/LRemisol ChemCholesterol [Mass/Vol]140 mg/iYWxhrlf580 - 200 mg/dLRemisol ChemCholesterol in HDL [Mass/Vol]48 mg/dL Invalid Interpretation CodeRemisol ChemComment on above:Result Comment: '>= 60 LOW RISK' '<= 40 HIGH RISK'Cholesterol in LDL [Mass/Vol]69 mg/dLNormal<=129mg/dLRemisol ChemCholesterol in VLDL [Mass/Vol]40 mg/dLNormal7 - 40 mg/dLRemisol ChemCO2 [Moles/Vol]26 mmol/IJarkxb02 - 31 mmol/LRemisol ChemCreatinine [Mass/Vol]0.8 mg/dLNormal0.5 - 1.3 mg/dLRemisol WulhoDNM88 mL/min/1.73 p1Kyjlaa>=59mL/min/1.73 f8Cbtxivv ChemGlobulin (S) [Mass/Vol]2.7 g/dLNormal1.4 - 4.0 gm/dLRemisol Chem Glucose [Mass/Vol]112 mg/tDPkonxc07 - 199 mg/dLRemisol ChemPotassium [Moles/Vol] 4.5 mmol/LNormal3.5 - 5.3 mmol/LRemisol ChemProtein [Mass/Vol]6.8 g/dLNormal6.0 - 7.8 gm/dLRemisol ChemSodium [Moles/Vol]140 mmol/UGkwidi633 - 145 mmol/LRemisol ChemTriglyceride [Mass/Vol]199 mg/dLHigh<=149mg/dLRemisol ChemUrea nitrogen [Mass/Vol]14 mg/dLNormal5 - 21 mg/dLRemisol ChemUrea nitrogen/Creatinine [Mass ratio]18 mg/acCfpkmd52 - 20Remisol ChemCHEMISTRYOrdered By: Cristina Larose on 80-14-2810AxL6y (Bld) [Mass fraction]5.8 %Normal<=5.9%[facility] ChemAutoSSCMPon 40-86-7179Xkkoqij [Mass/Vol]4.1 g/dLNormal3.3-5.0[facility] Hospitaler [facility] Comment on above:Performed By: #### 1382464, 02277309, 949478193, 542122305, 0199290, 0681234 ####Post [facility] [address] [place], [place] [address]Axxiprr/Globulin (S) [Mass conc ratio]1.4Bnaztf5.1-2.2Fisher [facility] Medical CenterComment on above:Performed By: #### 0777649, 00684514, 783598304, 890639398, 0775634, 8477979 ####[facility] [address] [place], [place] [address]HML [Catalytic activity/Vol]108 Int._Unit/UIali71-93FsnwgqMemorial Health System Marietta Memorial HospitalComment on above:Performed By: #### 9623371, 69259751, 902519009, 415470408, 0953135, 8252829 ####[facility] [address] [place], [place] [address]LGJ No additional P-5'-P [Catalytic activity/Vol]31 Int._Unit/LNormal6-46[facility] Memorial HospitalComment on above:Performed By: #### 1494529, 85164089, 954827045, 038945502, 9097272, 6279677 ####[address] [address]Fwahh gap [Moles/Vol]13 mmol/LNormal6-16[facility] Memorial HospitalComment on above:Performed By: #### [id number], [id number], [id number], 826836493, 2364928, 2427181 ####[address] [address]IWD [Catalytic activity/Vol]19 Int._Unit/LNormal5-43[facility] HospitalComment on above:Performed By: #### 5351362, 93133975, 553050993, 070241715, 5421646, 9276081 ####[address] [address]Xuduqsmik [Mass/Vol] 0.4 mg/dLNormal0.0-1.1FKettering Health SpringfieldComment on above:Performed By: #### 6038583, 45861317, 889949058, 610041094, 3457579, 9775152 ####[address] [address]Dsrxvga [Mass/Vol]9.2 mg/dLNormal8.9-11.1FKettering Health SpringfieldComment on above:Performed By: #### 4681448, 99116673, 064856070, 599921760, 0114584, 8130881 ####[facility] [address] [place], [place] [address]Jxmmqfxu [Moles/Vol] 106 mmol/ELyquib142-088XvqwzuMemorial Health System Marietta Memorial HospitalComment on above:Performed By: #### 9683599, 85697372, 682650517, 615054565, 8463449, 2359113 ####[address] [place], [place] [address]CT4 [Moles/Vol]26 mmol/VPmdlfu40-01ResekoMemorial Health System Marietta Memorial HospitalComment on above:Performed By: #### 9583860, 87263604, 364325676, 936691734, 0500839, 9187336 ####[address] [address]Actbtupcdt [Mass/Vol] 0.8 mg/dLNormal0.5-1.3FKettering Health SpringfieldComment on above:Performed By: #### 7402710, 79445102, 952969758, 525284338, 7817088, 4258191 ####[facility] [address] [place] [address]Tfacgfzt (S) [Mass/Vol]2.7 g/dLNormal1.4-4.0[facility] HospitalComment on above: Performed By: #### 1089576, 11962197, 295301338, 339526873, 8145390, 2816141 ####[facility] [address] [place] [address] Glucose [Mass/Vol]112 mg/zZYbkcct29-484TdmomeMemorial Health System Marietta Memorial HospitalComment on above:Performed By: #### 7005035, 66040696, 614764777, 974182958, 2172669, 5561723 ####[facility] [address] [place], [place] [address]Ejyzydjjy [Moles/Vol]4.5 mmol/LNormal3.5-5.3FKettering Health Springfield Comment on above:Performed By: #### 3013322, 41848403, 966275470, 716902996, 0052232, 9877157 ####[facility] [address] [place], [place] [address]Imbydgc [Mass/Vol]6.8 g/dLNormal6.0-7.8[facility] HospitalComment on above:Performed By: #### 0014504, 41383199, 279863056, 753073486, 5186698, 0646676 ####[facility] [address] [place], [place] [address]Ottilj [Moles/Vol]140 mmol/ZXaevpd334-734YgolcjMemorial Health System Marietta Memorial HospitalComment on above:Performed By: #### 1003696, 78405122, 902527569, 119828022, 8020038, 6149238 ####[facility] [address] [place], [place] [address]Jxov nitrogen [Mass/Vol]14 mg/dL Normal5-21[facility] HospitalComment on above:Performed By: #### 4235004, 95776465, 607004948, 832705659, 9987091, 8516023 ####[facility] [address] [place] [address]Dbye nitrogen/Creatinine [Mass ratio]18 No CfzezYteatq02-16KmvlybMemorial Health System Marietta Memorial HospitalComment on above:Performed By: #### 9977076, 04112602, 170494617, 736206409, 3000914, 3240006 ####[facility] [address] [place], [place] [address]Krrcuah for Treatmenton 85-54-1372Fcyegnb for [id number]#1.00TIFFNormalMemorial Health System Marietta Memorial HospitalHEMATOLOGYOrdered By: SYSTEM SYSTEM on 72-44-5786Ctyzrbkjg/100 WBC (Bld)1.0 %Normal0.0 - 2.0 %Remisol HemeBasophils/Leukocytes Auto (Bld) [Pure # fraction]0.1 E9/LNormal0.0 - 0.2 E9/LRemisol HemeEosinophils (Bld) [#/Vol]0.6 E9/LHigh0.0 - 0.5 E9/LRemisol HemeEosinophils/100 WBC (Bld)7.2 %Normal0.0 - 8.0 %Remisol HemeErythrocyte distribution width (RBC) [Ratio]13.6 %Xhapoy89.9 - 14.2 %Remisol HemeHematocrit (Bld) [Volume fraction]38.1 %Wsgfnm37.0 - 46.0 %Remisol HemeHemoglobin (Bld) [Mass/Vol]12.7 g/qEKfhgpd75.0 - 16.0 gm/dLRemisol Heme Lymphocytes (Bld) [#/Vol]1.6 E9/LNormal1.0 - 4.0 E9/LRemisol HemeLymphocytes/100 WBC (Bld)20.5 %Puikht80.0 - 50.0 %Remisol HemeMCH (RBC) [Entitic mass]28.3 pg Hlzaiq74.0 - 34.0 pgRemisol HemeMCHC (RBC) [Mass/Vol]33.3 g/eDTxlkht40.4 - 36.0 gm/dLRemisol HemeMCV (RBC) [Entitic vol]85.0 oUEkrbjn42.0 - 100.0 fLRemisol Heme Monocytes (Bld) [#/Vol]0.9 E9/LNormal0.2 - 1.0 E9/LRemisol HemeMonocytes/100 WBC (Bld)11.5 %Normal4.0 - 14.0 %Remisol HemeNeutrophils (Bld) [#/Vol]4.7 E9/L Normal2.0 - 7.5 E9/LRemisol HemeNeutrophils/100 WBC (Bld)59.8 %Phuisw66.0 - 75.0 %Remisol OozkXjxqdaxl849.0 E9/GWkmbcq164.0 - 500.0 E9/LRemisol HemePlatelet mean volume (Bld) [Entitic vol]8.2 fLNormal6.4 - 10.8 fLRemisol HemeRBC (Bld) [#/Vol]4.5 E12/LNormal4.3 - 5.9 E12/LRemisol HemeWBC corrected for nucl RBC Auto (Bld) [#/Vol]7.8 E9/LNormal4.0 - 11.0 E9/LRemisol SoxdKmpX1mtl 66-99-1840YdN3x (Bld) [Mass fraction]5.8 %Normal<=5.9[facility] HospitalComment on above:Performed By: #### 3066034, 50630765, 503139836, 200255383, 5918994, 6689718 ####[facility] [address], [place] [address]Qnskj Panelon 43-24-3847Oykoptinxue [Mass/Vol]140 mg/cWHqqryv763-946UocpirMemorial Health System Marietta Memorial HospitalComment on above:Performed By: #### 4506424, 61325757, 793625894, 903130302, 1731859, 4806615 ####[facility] [address]Normary imogene [place]ett [place], [place] [address]Irgbrjywedt in HDL [Mass/Vol]48 mg/dL Invalid Interpretation CodeMemorial Health System Marietta Memorial HospitalComment on above:Result Comment: '>= 60 LOW RISK' '<= 40 HIGH RISK'Performed By: #### 6234160, 20945061, 775650356, 325916539, 3235520, 2788614 ####[facility] [address], [place] [address]Clrtnguomqd in LDL [Mass/Vol]69 mg/dLNormal<=129[facility] HospitalComment on above:Performed By: #### 1421018, 60296539, 101132129, 312256705, 7504555, 2802544 ####[facility] [address], [place] [address]Mclnkcopgbs in VLDL [Mass/Vol]40 mg/dLNormal7-40 [facility] HospitalComment on above:Performed By: #### 2136560, 79687244, 397912371, 135501962, 2724064, 2583057 ####[facility] [address] [place], [place] [address]Thjpbxdxsxin [Mass/Vol]199 mg/dLHigh <=149[facility] HospitalComment on above:Performed By: #### 3422178, 53738733, 198149422, 375760413, 4837666, 6063287 ####[address] [place], [place] [address]Jfvhvvhtt Orderon 03-27-2024 Physician [id number]#1.00TIFFNormalMemorial Health System Marietta Memorial HospitalVitamin D 25 Hydroxyon 233[address]-ltvxjxduvzrxrx D3 [Mass/Vol]27.7 ng/mLLow30.0-100.0[facility] HospitalComment on above: Performed By: #### 4179401, 44489421, 025773782, 592828313, 8371988, 6475124 ####[facility] [address] [place], [place] [address]wCRM on 09-59-9023cPHS49 mL/min/1.73 v6Umfvqd>=59[facility] HospitalComment on above:Order Comment: Order added by Discern Expert.Performed By: #### 3806288, 69611364, 731274951, 266556002, 6571888, 0726737 ####[address] [place], [place] [address]Qjjplcf Educationon 41-18-8393Lsekonx EducationEndocrinology Diabetes Mellitus and Nutrition, Adult When you [...] level more than any other type of food.Eating carbs raises the amount of glucose in [...] (hypoglycemia), especially if you use insulin or takecertain diabetes medicines by mouth. Hypoglycemia can be [...] Facts label of packaged foods and drinks. Thenumber of calories and the amount of carbs, fats, and other nutrients listed on the label are basedon one serving of the item. Many items contain more than one serving per package. ? Check the total grams (g) of carbs in one serving. ? Check the number of grams of saturated fats and trans fats in one serving. Choose foods that havea low amount or none of these fats. ? Check the number of milligrams (mg) of salt (sodium) in one serving. Most people should limit total sodium intake to less than 2,300 mg per day. ? Always check the nutrition information of foods labeled as low-fat or nonfat. These foods maybe higher in added sugar or refined carbs [...] as lean meat, chicken, fish, eggs, or tofu.One ounce (oz) (28 g) of lean protein [...] kale, chard, adama greens, mustard greens, and cabbage.Beets. Cauliflower. Broccoli. Carrots. Green beans. Tomatoes. Peppers. Onions. Cucumbers. [place] sprouts. Grains Whole grains, such as whole-wheat or whole-grain bread, crackers, tortillas, cereal, and pasta. Unsweetened oatmeal. (more content not included)...Normal [facility] HospitalAmbulatory Visit Summaryon 71-29-4703Owpalhqupm Visit Summary SANDEE DAI :1950 Visit Date:01/29/2024 [...] 8:00 AM EDT With: Ellen Carlos Where: [facility] [address], [place] [address]- \.br\ You Need to Complete the Following\.br\ [...] 90 Days\.br\ Unchanged calcium-vitamin D (calcium (as carbonate)- vitamin D 500 mg-200 intl units oral tablet) [...] hypertension\.br\ BMI 40.0-44.9, adult\.br\ Diastolic dysfunction without heartfailure\.br\ Flatulence\.br\ GERD (gastroesophageal reflux disease)\.br\ Heart murmur, systolic\.br\ Hyperlipidemia\.br\ Lumbar radiculopathy\.br\ Lymphedema\.br\ Morbid obesity\.br\ Obstructive sleep apnea\.br\ Osteopenia\.br\ Peripheral arterial disease\.br\ Prediabetes\.br\ Vitamin D deficiency\.br\ Historical - Any problem that you are no longer receiving treatment for.\.br\ Aneurysm of splenic artery\.br\ Osteoarthritis\.br\ Patient Survey\.br\ You may receive a survey via text or e- mail asking about your office visit. Please share [...] lead to surgical removal of a leg (amputation).\.br\ What are the causes?\.br\ The exact cause [...] have a family member with type 2 diabetes.\.br\? \.br\ You are older than 45 years.\.br\ [...] such as blurry vision.\.br\ ? \.br\ Tiredness (fa tigue).\.br\ How is this diagnosed?\.br\ \.br\ This condition can be diagnosed with blood tests. Your blood glucose may be checked with one or more of the following tests:\.br\ ? \.br\A fasting blood glucose (FBG) test. You will [...] hours after you drink a beverage that co ntains glucose.\.br\ You may be diagnosed with prediabetes [...] from developing. In some cases, medicine may beprescribed to help lower the risk of type 2 diabetes.\.br\ Follow these instructions at home:\.br\ Nutrition\.br\ \.br\ ? \.br\ Follow a healthy meal plan. This includes eating lean pro teins, whole grains, legumes, fresh fruits and vegetables, low-fat dairy products, and healthy fats.\.br\ ? \.br\ Follow instructions from your health care provider about eating or drinking restrictions.\.br\ ? \.br\ Meet with a dietitian to create a healthy eating plan that is right for you.\.br\ L ifestyle\.br\ ? \.br\ Do moderate-intensity exercise for at least 30 minutes a day on 5 or more days each week, or as told by your health care provider. A mix of activities may be best, such as:\.br\? \.br\ Brisk walking, swimming, biking, and weight [...] alcohol is in your drink. In the [place]one drink equals one 12 oz bottle of beer (355 mL), one 5 oz glass of wine (148 mL), or one 1? oz glass of hard liquor (44 mL).\.br\ General instructions\.br\ ? \.br\ Take kznf-jwn-ogirzxi and prescription medicines only as told by [...] is important.\.br\ Where to find more information\.br\ ?[facility] Medicine Office/Clinic Note on 01-18-1544Sgulqd Medicine Office/Clinic NoteChief Complaint Subsequent Medicare Wellness Visit Review of [...] of clutter to prevent tripping and/or falling. [place] Advance Directives reviewed. Documents remain at home, [...] Labs were ordered, to be completed with [facility]. No concerns with bowel/ bladder. Colonoscopy last [...] directed. 3. 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 States she is currently having some issues with c-pap. Will be following up with provider in the near future. 6. Encounter for hepatitis C screening test for low risk patient (Z11.59: Encounter for screening for other viral diseases) Discussed with patient the risk of Hepatitis C for people born between 1945- 1965. Handout CDC-Hepatitis C given. Patient to have [...] No qualifying data avai (more content not included)...[facility] CenterComment on above:Result Comment: Electronically Signed By: Daquan GRANADOS, Ellen Bonilla\.br\Date and Time Signed: 01/29/24 12:22 EST\.br\Electronically Co-Signed By: Lilly Hoang LPN\.br\Date and Time Co-Signed:01/29/24 11:56 ESTPatient Educationon 19-15-8192Jmfeeuj EducationEndocrinology Prediabetes Prediabetes is when your blood sugar [...] to insulin that the body makes. This cancause excess glucose to build up in the [...] eat (you will fast) for at least 8hours before a blood sample is taken. ? [...] liquor (44 mL). General instructions ? Take odmk-upw-rsglcfu and prescription medicines only as told by [...] important. Where to find more information ? [place] [employer]: www.diabetes.org ? Academy of Nutrition and Dietetics: www.eatright.org ? [place] [employer]: www.heart.org Contact a health care provider if: ? You have any of these symptoms: ? Increased hunger. ? Increased urination. ? Increased thirst. ? Fatigue. ? Vision changes, such as blurry vision. Get help right away i (more content not included)...NormalMercy Health St. Joseph Warren Hospitalcreenson 51-46-9558Jomgqdh [id number]#1.00TIFSouthview Medical CenterConsultation Noteon 84-99-0471Dqlawfxzpeia Note [id number]#1.00[facility] CenterNo Panel Informationon 34-80-7918Fdolr Flores 12/27/2023 2:10 PM L Inj/Asp: bilateral knee on 12/27/2023 9:02 AM Indications: pain Details: 25 G needle Medications (Right): 12 mg betamethasone acetate-betamethasone sodium phosphate 6 (3-3) MG/ML Medications (Left): 12 mg betamethasone acetate-betamethasone sodium phosphate 6 (3-3) MG/ML Consent was given by the patient. [facility] HealthcareRadiology Study observation (narrative)[facility]XR K[facility] - left 3 Viewson 66-23-6523Emylnzd Result: Bilateral standing PA, bilateral sunrise, and lateral of the affected knee were imaged today in the office. Patient has bilateral medial compartments clhu-kg-gotb as well as patellofemoral disease no evidence of acute fracture or bony tumor seen.Critical access hospitalXR Knee - right 3 Viewson 74-25-5017Xvcsqfa Result: Bilateral standing PA, bilateral sunrise, and lateral of the affected knee were imaged today in the office. Patient has bilateral medial compartments pbmi-ga-jmdt as well as patellofemoral disease no evidence of acute fracture or bony tumor seen.Critical access hospitalAmbulatory Visit Summaryon 86-05-8309Bdvzgvggdu Visit Summary SANDEE DAI :1950 Visit Date:12/09/2023 [...] What to do next Scheduled Follow-Up Appointments Saturday. 2023 8:00 AM EST With: Where: [facility] [address] [place] [address], [place] [address]- \.br\ You Need to Schedule the Following Appointments\.br\ Follow Up with Ellen Carlos When: In 6 months\.br\ Comments:\.br\CCM\.br\ Where:\.br\ [address]\ [place] [address]-\.br\ \.br\ Medications\.br\ What How Much When Why Instructions\.br\ Unchanged aspirin (aspirin 325 mg Oral EC Tab) 1 Tablets By Mouth Every day as needed for as needed for pain\.br\ Unchanged atorvastatin (atorvastatin 10 mg Tab) 1 Tablets By Mouth Every day Duration: 90 Days\.br\ Unchanged calcium-vitamin D (calcium (as carbonate)-vitamin D 500 mg-200 intl units oral tablet) 1 Tablets By Mouth Every day\.br\ Unchanged famotidine (famotidine 40 mg Tab) 1 Tablets By Mouth Every day GERD (gastroesophageal reflu x disease) Pickup at [facility]/pharmacy #[id number]\.br\ Unchanged glucosamine\.br\ Unchanged losartan (losartan 25 [...] Every day Duration: 90 Days Pickup at [facility]/pharmacy #[id number]\.br\ Pharmacy Information\.br\ [facility]/pharmacy #[id number]: [address] [place], [place] [id number] [phone]\.br\ Allergies\.br\ alendronate (Hives, Rash)\.br\ Problems\.br\ Ongoing - Any problemthat you are currently receiving treatment for.\.br\ Benign hypertension\.br\ BMI 40.0-44.9, adult\.br\ Diastolic dysfunction without heart failure\.br\ Flatulence\.br\ GERD (gastroesophageal reflux disease)\.br\ Heart murmur, systolic\.br\ Hyperlipidemia\.br\ Lumbar radiculopathy\.br\ Lymphedema\.br\ Morbid obesity\.br\ Obstructive sleep apnea\.br\ Osteopenia\.br\ Peripheral arterial disease\.br\ Prediabetes\.br\ Vitamin D deficiency\.br\ Historical - Any problem that you are no longer receiving treatment for.\.br\ Aneurysm of splenic artery\.br\ Osteoarthritis\.br\ Patient Survey\.br\ You may receive a survey [...] burning pain. It may also cause a bad,acid-like taste in the mouth. Heartburn may feel worse when you lie down or bend over, and it is often worse at night. Heartburn may be caused by stomach contents that move back up into the esophagus(reflux).\.br\ Follow these instructions at home:\.br\ Eating and drinking\.br\ \.br\ ? \.br\ Avoid certain foods and drinks as told by your health care provider. This may include:\.br\ ? \.br\ Coffee and tea, with or without caffeine.\.br\ ? \.br\ Drinks that contain alcohol.\.br\ ?\.br\ Energy drinks and sports drinks.\.br\ ? \.br\ Carbonated drinks or sodas.\.br\ ? \.br\ Chocolate and cocoa.\.br\ ? \.br\ Peppermint and mint flavorings.\.br\ ? \.br\ Garlic and onions.\.br\ ? \.br\ Horseradish.\.br\ ? \.br\ Spicy and acidic foods, including peppers, chili powder, carlson powder, vinegar, hot sauces, and barbecue sauce.\.br\ ? \.br\ [place] fruit juices and citrus fruits, such as oranges, crystal, and limes.\.br\ ? \.br\ Tomato-based foods, such as red sauce, chili, salsa, andpizza with red sauce.\.br\ ? \.br\ Fried and fatty foods, such as donuts, maltese fries, potato chips, and high-fat dressings.\.br\ ? \.br\ High-fat meats, such as hot dogs and fatty cuts of red and white meats, such as rib eye steak, sausage, ham, and osborne.\.br\ ? \.br\ High-fat dairy items, such as [...] These products include cigarettes, chewing tobacco, and vapingdevices, such as e-cigarettes. These can make symptoms [...] health care provider.\.br\ Medicines\.br\ ? \.br\ Take rzku-qrr-fzqwmqn and prescription medicines only as told by your health care provider.\.br\ ? \.br\ Do not take aspirin or NSAIDs, such as ibuprofen, unless your health care provider told you to do so.\.br\ ? \.br\ Stop medicines only as told by your health careprovider. If you stop taking some medicines too [...] \.br\ You suddenly feel sweaty, dizzy, or light-headed.\.br\ ? \.br\ You have chest pain or shortness of breath.\.br\ ? \.br\ You vomit and your vomit looks like blood or coffee grounds.\.br\ ? \.br\ Your stool is bloody or black.\.br\ These symptoms may represent a serious problem thatis an emergency. Do not wait to see if the symptoms will go away. Get medical help right away. [facility] emergency services (911 in the [place] Do not drive yourself to the hospital.\.br\ Summary\.br\ ? \.br\ Heartburn is a type of pain or discomfort that can happen in the throat or chest. It is often described as a burning pain. It may also cause a bad, acid-like taste in the mouth.\.br\ ? \ .br\ Avoid certain foods and drinks as told by your health care provider.\.br\ ? \.br\ Take hodi-mdh-tzmsgdf and prescription medicines only as told by your health care provider. Do not take aspirin or NSAIDs, such as ibuprofen, unless your health care provider told you to do so.\.br\ ? \.br\ Contact a health care provider if your symptoms do not improve or they get worse.\.br\ This information is not intended to replace advice given to you by your health care p [facility] Medicine Office/Clinic Noteon 53-31-7944Wqsynx Medicine Office/Clinic NoteChief Complaint pt here for 1 month f/u. HPI Staff Medicare wellness: utd Last routine labs: 03/27/23 smoker status: never Mammogram (qyr 45-54, q2yrs 55-75): utd colonoscopy/cologuard (45-75yo): utd DEXA (F>65, M>70): due- ordered flu vaccine status: utd covid vaccine: utd History of Present Illness Sandee is a 73 yo female presenting today for 1 mo f/u Flatulence Overall, pt reports feeling less gassy/flatulent since starting a daily probiotic and following thelow FODMAP diet. Famotidine 40mg/d has improved her [...] time. Pt denies recent use of tobacco, decongestants/sudafed, albuterol, NSAIDs. Pt is taking medications as [...] Mouth: mucous membranes pink, moist and intact. [place] posterior oropharynx, no palatal inflammation,uvula midline, no cobble-stoning, no enlarged tonsils, no [...] normal. No erythema, edema, effusion, crepitus, or ecchymosis.Straight leg raise negative Extremity: No clubbing, cyanosis, edema, or deformity. Normal ROM with upper and lower extremities,bilaterally. Neurologic: Cranial nerves II-XII grossly intact. motor [...] Daily, # 90 tab(s), Refills(s) 1, Pharmacy: [facility]/pharmacy #[id number], cm, 12/09/23 9:04:00 EST, Height/Length Dosing, 116.8, kg, 12/09/23 9:04:00 EST, Weight Dosing 3. Morbid obesity (E66.01: Morbid (severe) obesity due to excess calories) Reviewed importance of making a lifestyle change regarding dietary choices. Discussed goals. Encouraged routine cardio exercise with Goal: 3-5x/week for 30- 45 minutes. Start out slow and increase to [...] medical support in addressing this problem. Your BMIand weight management will [facility] at [facility] (more content not included)...[facility] Medical CenterComment on above:Result Comment: Electronically Signed By: Daquan GRANADOS, Ellen Bonilla\.br\Date and Time Signed: 12/09/23 09:27 ESTPatient Educationon 47-64-0098Sfaadbv EducationGastroenterology Heartburn Heartburn is a type of pain or discomfort that can happen in the throat or chest. It is often described as a burning pain. It may also cause a bad, acid- like taste in the mouth. Heartburn may feel [...] vinegar, hot sauces, and barbecue sauce. ? [place] fruit juices and citrus fruits, such as oranges, crystal, and limes. ? Tomato-based foods, such as red sauce, chili, salsa, and pizza with red sauce. ? Fried and fatty foods, such as donuts, maltese fries, potato chips, and high- fat dressings. ? High-fat meats, such as hot dogs and fatty cuts of red and white meats, such as rib eye steak, sausage, ham, and osborne. ? High-fat dairy items, such as whole [...] tight around your waist that causes pressure onyour abdomen. ? Raise (elevate) the head of your bed about 6 inches (15 cm) when you sleep. You can use a wedge to do this. ? Try to reduce your stress, such as with yoga or meditation. If you need help reducing stress, askyour health care provider. Medicines ? Take gbet-oxj-wvctaqt and prescription medicines only as told by your health care provider. ? Do not take aspirin or NSAIDs, such as ibuprofen, unless your health care provider told you to doso. ? Stop medicines only as told by [...] pain. It may also cause a bad, acid- like taste in the mouth. ? Avoid certain foods and drinks as told by your health care provider. ? Take mlxy-oat-zodablr and prescription medicines only as told by [...] provider. Document Revised: 05/17/2021 Document Reviewed: 05/17/2021 [employer] Patient Education ? 2022 [employer]. Nutrition BMI for Adults What is BMI? Body mass index (BMI) is a number that is calculated from a person's weight and height. BMI can help estimate how much of a person's weight is composed of fat. BMI does not measure body fat directly.Rather, it is an alternative to procedures that directly measure body fat, which can be difficult (more content not included)...NormalMemorial Health System Marietta Memorial HospitalCHEMISTRYOrdered By: SYSTEM SYSTEM on [id number]-igedovhlswotcd D3 [Mass/Vol]33.1 ng/kZUijgir58.0 - 100.0 ng/mLSTILLWATER [facility] [place] RemisolAlbumin [Mass/Vol]3.9 g/dLNormal3.3 - 5.0 gm/dLFTMC Remisol Albumin/Globulin [Mass ratio]1.1 {ratio}Normal1.1 - 2.2[facility] RemisolALP [Catalytic activity/Vol]85 [iU]/nGcpegw69 - 98 Int._Unit/LFTMC RemisolALT No additional P-5'-P [Catalytic activity/Vol]31 [iU]/dNormal6 - 46 Int._Unit/LFTMC RemisolAnion gap [Moles/Vol]11 mmol/LNormal6 - 16 mEq/LFTMC RemisolAST [Catalytic activity/Vol]20 [iU]/dNormal5 - 43 Int._Unit/LFTMC RemisolBilirubin [Mass/Vol]0.6 mg/dLNormal0.0 - 1.1 mg/dLFTMC RemisolCalcium [Mass/Vol]9.4 mg/dL Normal8.9 - 11.1 mg/dLFTMC RemisolChloride [Moles/Vol]106 mmol/GJkwxdg741 - 111 mmol/LFTMC RemisolCholesterol [Mass/Vol]153 mg/mLWzcxva529 - 200 mg/dLFTMC RemisolCholesterol in HDL [Mass/Vol]53 mg/dLInvalid Interpretation CodeFTMC RemisolCholesterol in LDL [Mass/Vol]75 mg/dLNormal<=129mg/dLFTMC Remisol Cholesterol in VLDL [Mass/Vol]37 mg/dLNormal7 - 40 mg/dLFTMC RemisolCO2 [Moles/Vol]26 mmol/UTlohbk44 - 31 mmol/LFTMC RemisolCreatinine [Mass/Vol]0.9 mg/dLNormal0.5 - 1.3 mg/dLFTMC RemisolGFR/1.73 sq M.predicted among non-blacks MDRD (S/P/Bld) [Vol rate/Area]68 mL/min/1.73 g1Wvtuix>=59mL/min/1.73 m2[facility] Chem SGlobulin (S) [Mass/Vol]3.5 g/dLNormal1.4 - 4.0 gm/dLFTMC RemisolGlucose [Mass/Vol]118 mg/eKAjsiwi78 - 199 mg/dLFTMC RemisolPotassium [Moles/Vol]4.4 mmol/LNormal3.5 - 5.3 mmol/LFTMC RemisolProtein [Mass/Vol]7.4 g/dLNormal6.0 - 7.8 gm/dLFTMC RemisolSodium [Moles/Vol]139 mmol/AGmrwei691 - 145 mmol/LFTMC RemisolTriglyceride [Mass/Vol]184 mg/dLHigh<=149mg/dLFTMC RemisolTSH Qn2.86 m[IU]/LNormal0.34 - 5.60 mcIU/mLFTMC RemisolUrea nitrogen [Mass/Vol]16 mg/dL Normal5 - 21 mg/dLFTMC RemisolUrea nitrogen/Creatinine [Mass ratio]18 mg/mg Updvlx16 - 20[facility] RemisolCHEMISTRYOrdered By: Cristina Larose on 03-27-2023 HbA1c (Bld) [Mass fraction]6.0 %High<=5.9%[facility] ChemAutoSSHEMATOLOGYOrdered By: SYSTEM SYSTEM on [id number]/100 WBC (Bld)0.7 %Normal0.0 - 2.0 %[facility] HemeAutoSSBasophils/Leukocytes Auto (Bld) [Pure # fraction]0.1 E9/LNormal0.0 - 0.2 E9/LFTMC HemeAutoSSEosinophils/100 WBC (Bld)4.7 %Normal0.0 - 8.0 %[facility] HemeAutoSSEosinophils/Leukocytes Auto (Bld) [Pure # fraction]0.4 E9/LNormal0.0 - 0.5 E9/LFTMC HemeAutoSSLymphocytes/100 WBC (Bld)23.4 %Zqkxmd12.0 - 50.0 %[facility] HemeAutoSSLymphocytes/Leukocytes Auto (Bld) [Pure # fraction]1.9 E9/LNormal1.0 - 4.0 E9/LFTMC HemeAutoSSMonocytes/100 WBC (Bld)6.6 %Normal4.0 - 14.0 %[facility] HemeAutoSSMonocytes/Leukocytes Auto (Bld) [Pure # fraction]0.6 E9/LNormal0.2 - 1.0 E9/LFTMC HemeAutoSSNeutrophils/100 WBC (Bld)64.6 %Guwudj23.0 - 75.0 %[facility] HemeAutoSSNeutrophils/Leukocytes Auto (Bld) [Pure # fraction]5.4 E9/LNormal2.0 - 7.5 E9/LFTMC HemeAutoSSHEMATOLOGYOrdered By: Linda Samaniego on 03-27-2023 Erythrocyte distribution width (RBC) [Ratio]13.3 %Nktyvk12.9 - 14.2 %[facility] HemeAutoSSHematocrit (Bld) [Volume fraction]40.6 %Bpetan19.0 - 46.0 %[facility] HemeAutoSSHemoglobin (Bld) [Mass/Vol]13.2 g/xWPspmyc21.0 - 16.0 gm/dLFTMC HemeAutoSSMCH (RBC) [Entitic mass]27.8 nkBgqftl66.0 - 34.0 pgFTMC HemeAutoSSMCHC (RBC) [Mass/Vol]32.5 g/lVDrxqin16.4 - 36.0 gm/dLFTMC HemeAutoSSMCV (RBC) [Entitic vol]85.6 xKXcizjg71.0 - 100.0 fLFTMC HemeAutoSSPlatelet mean volume (Bld) [Entitic vol]8.4 fLNormal6.4 - 10.8 fLFTMC HemeAutoSSPlatelets (Bld) [#/Vol]206.0 E9/JTeehfn518.0 - 500.0 E9/LFTMC HemeAutoSSRBC (Bld) [#/Vol]4.7 E12/LNormal4.3 - 5.9 E12/LFTMC HemeAutoSSWBC corrected for nucl RBC Auto (Bld) [#/Vol]8.3 E9/LNormal4.0 - 11.0 E9/LFTMC HemeAutoSSMG MAMM SCREEN 3D PADDY CADon [id number] MAMM SCREEN 3D PADDY CADPatient: SIMIN DAIJOAJITH WallaceChuckie Exam Date: 08/09/2022 : 1950 Gender:F Ordering : RUPA RODRIGUEZ Admission #: [id number] Family : Order #: [id number] CLICK HERE TO VIEW EXAM RADIOLOGY REPORT [...] Treatments None Family Cancers None LOCATION: [facility] BREAST COMPOSITION: Scattered areas fibroglandular density. [...] LUMP SHOULD BE BIOPSIED. Dictated by: Marii Muhammad MD on 08/09/2022 at 12:19 Approved by: Marii Muhammad MD on 08/09/2022 at 12:21[facility] GLYCOHEMOGLOBIN A1Con [id number] RECOMMENDATIONADA THERAPEUTIC TARGET 6.0 - 7.0 ACTION SUGGESTED > 7.0[facility] WestComment on above:Performed By: #### A1C #### [facility] [address] [place] [address] Dr. Nancy ThorntonGlucose [Mass/Vol]128 mg/dLRegency Hospital Cleveland WestComment on above:Performed By: #### A1C #### [facility] [address] [address] [address] Nancy ThorntonHbA1c (Bld) [Mass fraction]6.1 %Critically high<=6.0Prem[facility] Atrium Medical CenterComment on above:Performed By: #### A1C #### [facility] [address] [place] [address] Dr. Nancy ThorntonLIPID PROFILEon [id number]-HDL RATIO NORMSEE BELOWRegency Hospital Cleveland WestComment on above:Result Comment: 3.3 - 4.4 LOW RISK 4.4 - 7.1 AVERAGE RISK 7.1 - 11.0 MODERATE RISK >11.0 HIGH RISKPerformed By: #### CMP, LIPID #### [facility] [address] [place] [address] Dr. Nancy ThorntonCholesterol [Mass/Vol]143 mg/dLNormal<=200The [facility] Comment on above:Performed By: #### CMP, LIPID #### [facility] [address] [place] [address] Dr. Nancy ThorntonCholesterol in HDL [Mass/Vol]56 mg/eLLzyvlf66-70Zff [facility] HospitalComment on above:Performed By: #### CMP, LIPID #### [facility] [address] [place] [address] Dr. Nancy ThorntonCholesterol in LDL [Mass/Vol]52.2 mg/dLRegency Hospital Cleveland WestComment on above:Performed By: #### CMP, LIPID #### [facility] [address] [place] [address] Dr. Nancy Strongesterjulia.total/Cholesterol in HDL [Mass ratio]2.6 {ratio} NormalThe [facility] HospitalComment on above:Performed By: #### CMP, LIPID #### [facility] [address] [place] [address] Dr. Nancy Muñiz NORMAL> or = 60 mg/dl - LOW CARDIOVASCULAR RISK <40 mg/dl - HIGH CARDIOVASCULAR RISKRegency Hospital Cleveland WestComment on above:Performed By: #### CMP, LIPID #### [facility] [address] [place] [address] Dr. Nancy ThorntonLDL CALC NORMALSEE BELOWRegency Hospital Cleveland WestComment on above:Result Comment: <100 mg/dl OPTIMAL 100 - 129 mg/dl NEAR OR ABOVE OPTIMAL 130 - 159 mg/dl BORDERLINE HIGH 160 - 189 mg/dl HIGH >190 mg/dl VERY HIGH Performed By: #### CMP, LIPID #### [facility] [address] [place] [address] Dr. Nancy ThorntonTriglyceride [Mass/Vol]174 mg/dLCritically high<=150The [facility] HospitalComment on above:Performed By: #### CMP, LIPID #### [facility] [address] [address] [address] Nancy ThorntonVLDL CALC34.8 mg/dLNormalThe [facility] HospitalComment on above: Performed By: #### CMP, LIPID #### [facility] [address] [address] [address] Nancy ThorntonPROF 14(COMP METB)on [id number] [Mass/Vol]3.5 g/dLNormal 3.4-5.0The [facility] HospitalComment on above:Performed By: #### CMP, LIPID #### [facility] [address] [place] [address] Dr. Nancy ThorntonAlbumin/Globulin [Mass ratio]0.9 {ratio}NormalThe [facility] HospitalComment on above:Performed By: #### CMP, LIPID #### [facility] [address] [place] [address] Dr. Nancy Pierre [Catalytic activity/Vol]123 U/LCritically ajks27-121Ect [facility] HospitalComment on above:Performed By: #### CMP, LIPID #### [facility] [address] [place] [address] Dr. Nancy Clark [Catalytic activity/Vol]40 U/JThbjtg90-57Ouh [facility] Hospitalment on above:Performed By: #### CMP, LIPID #### [facility] [address] [place] [address] Dr. Nancy Price gap [Moles/Vol]12.8 mmol/LNormalThe [facility] on above:Performed By: #### CMP, LIPID #### [facility] [address] [place] [address] Dr. Nancy ThorntonAST [Catalytic activity/Vol]26 U/HPphhan34-24Swh [facility] HospitalComment on above:Performed By: #### CMP, LIPID #### [facility] [address] [place] [address] Dr. Nancy ThorntonBilirubin [Mass/Vol]0.5 mg/dLNormal0.2-1.3The [facility] Comment on above:Performed By: #### CMP, LIPID #### [facility] [address] [place] [address] Dr. Nancy ThorntonCalcium [Mass/Vol]9.0 mg/dLNormal8.5-10.1[facility] Comment on above:Performed By: #### CMP, LIPID #### [facility] [address] [address] [address] Nancy ThorntonChloride [Moles/Vol]105 mmol/UVxbuna93-882Wku [facility] Comment on above:Performed By: #### CMP, LIPID #### [facility] [address] [place] [address] Dr. Nancy ThorntonCO2 [Moles/Vol]26.1 mmol/ZZdzgeq71.0-30.0[facility] Comment on above:Performed By: #### CMP, LIPID #### [facility] [address] [place] [address] Dr. Nancy ThorntonCreatinine [Mass/Vol]0.80 mg/dLNormal0.52-1.04The [facility] HospitalComment on above:Performed By: #### CMP, LIPID #### [facility] [address] [place] [address] Dr. Nancy SimsGFR-AF QATARI>60Normal>=60The [facility] HospitalComment on above:Performed By: #### CMP, LIPID #### [facility] [address] [place] [address] Dr. Nancy Corrigan-NON AF QATARI>60Normal>=60The [facility] HospitalComment on above:Performed By: #### CMP, LIPID #### [facility] [address] [place] [address] Dr. Nancy ThorntonGlobulin (S) [Mass/Vol]3.7 g/dLNormalThe [facility] HospitalComment on above:Performed By: #### CMP, LIPID #### [facility] [address] [place] [address] Dr. Nancy ThorntonGlucose [Mass/Vol]105 mg/yKEddzwm57-038Spw [facility] Comment on above:Performed By: #### CMP, LIPID #### [facility] [address] [place] [address] Dr. Nancy ThorntonPotassium [Moles/Vol]4.9 mmol/LNormal3.4-5.0[facility] Comment on above:Performed By: #### CMP, LIPID #### [facility] [address] [place] [address] Dr. aNncy ThorntonProtein [Mass/Vol]7.2 g/dLNormal6.1-8.2[facility] Comment on above:Performed By: #### CMP, LIPID #### [facility] [address] [place] [address] Dr. Nancy ThorntonSodium [Moles/Vol]139 mmol/YJlubjc190-370WcmPremier Health Atrium Medical Center Comment on above:Performed By: #### CMP, LIPID #### [facility] [address] [place] [address] Dr. Nancy ThorntonUrea nitrogen [Mass/Vol]15.0 mg/dLNormal7.0-18.0[facility] Atrium Medical CenterComment on above:Performed By: #### CMP, LIPID #### [facility] [address] [place] [address] Dr. Nancy Paulson nitrogen/Creatinine [Mass ratio]18.8 mg/mgNoWooster Community HospitalComment on above:Performed By: #### CMP, LIPID #### [facility] [address] [place] [address] Dr. Nancy ThorntonVITAMIN D 25 OHon [id number] D 25-OH29.8 ng/mLNormalPremier Health Atrium Medical CenterComment on above:Performed By: #### VITAD #### [facility] [address] [place] [address] Dr. Nancy Peters RANGESSEE BELOWRegency Hospital Cleveland WestComment on above: Result Comment: <20 ng/mL Vit D deficient 20 - <30 ng/mL Vit D insufficient 30 - 100 ng/mL Vit D sufficient >100 ng/mL Potential ToxicityPerformed By: #### VITAD #### [facility] [address] [address] [address] Nancy HaddadID PROFILEon [id number]-HDL RATIO NORMSProtestant HospitalComment on above:Result Comment: 3.3 - 4.4 LOW RISK 4.4 - 7.1 AVERAGE RISK 7.1 - 11.0 MODERATE RISK >11.0 HIGH RISKPerformed By: #### CMP, LIPID #### [facility] [address] [address] [address] Nancy ThorntonCholesterol [Mass/Vol]138 mg/dLNormal<=200[facility] Comment on above:Performed By: #### CMP, LIPID #### [facility] [address] [address] [address] Nancy ThorntonCholesterol in HDL [Mass/Vol]58 mg/dLReg[facility] Comment on above:Performed By: #### CMP, LIPID #### [facility] [address] [address] [address] Nancy ThorntonCholesterol in LDL [Mass/Vol]37.4 mg/dLRegency Hospital Cleveland WestComment on above:Performed By: #### CMP, LIPID #### [facility] [address] [place] [address] Dr. Nancy ThorntonCholesterjulia.total/Cholesterol in HDL [Mass ratio]2.4 {ratio} NormalPremier Health Atrium Medical CenterComment on above:Performed By: #### CMP, LIPID #### [facility] [address] [place] [address] Dr. Nancy ThorntonHDL NORMAL> or = 60 mg/dl - LOW CARDIOVASCULAR RISK <40 mg/dl - HIGH CARDIOVASCULAR RISKRegency Hospital Cleveland WestComment on above:Performed By: #### CMP, LIPID #### [facility] [address] [place] [address] Dr. Nancy ThorntonLDL CALC NORMALSEE [facility] HospitalComment on above:Result Comment: <100 mg/dl OPTIMAL 100 - 129 mg/dl NEAR OR ABOVE OPTIMAL 130 - 159 mg/dl BORDERLINE HIGH 160 - 189 mg/dl HIGH >190 mg/dl VERY HIGH Performed By: #### CMP, LIPID #### [facility] [address] [address] [address] Nancy ThorntonTriglyceride [Mass/Vol]213 mg/dLCritically high<=150The [facility] Hospitalment on above:Performed By: #### CMP, LIPID #### [facility] [address] [address] [address] Nancy ThorntonVLDL CALC42.6 mg/dLNormalThe [facility] HospitalComment on above: Performed By: #### CMP, LIPID #### [facility] [address] [place] [address] Dr. Nancy ThorntonPRONick 14(COMP METB)on [id number] [Mass/Vol]3.5 g/dLNormal 3.5-5.0The [facility] HospitalComment on above:Performed By: #### CMP, LIPID #### [facility] [address] [place] [address] Dr. Nacny ThorntonAlbumin/Globulin [Mass ratio]1.0 {ratio}NormalThe [facility] HospitalComment on above:Performed By: #### CMP, LIPID #### [facility] [address] [place] [address] Dr. Nancy Pierre [Catalytic activity/Vol]96 U/BYzoowy93-418Xzo [facility] HospitalComment on above:Performed By: #### CMP, LIPID #### [facility] [address] [place] [address] Dr. Nancy Clark [Catalytic activity/Vol]44 U/LNormal9-52The [facility] Comment on above:Performed By: #### CMP, LIPID #### [facility] [address] [place] [address] Dr. Nancy Price gap [Moles/Vol]8.8 mmol/LNormalThe [facility] HospitalComment on above:Performed By: #### CMP, LIPID #### [facility] [address] [place] [address] Dr. Nancy Reese [Catalytic activity/Vol]24 U/SNhtwru19-22Kpp [facility] HospitalComment on above:Performed By: #### CMP, LIPID #### [facility] [address] [place] [address] Dr. Nancy ThorntonBilirubin [Mass/Vol]0.4 mg/dLNormal0.2-1.3TMercy Memorial Hospital Comment on above:Performed By: #### CMP, LIPID #### [facility] [address] [place] [address] Dr. Nancy ThorntonCalcium [Mass/Vol]8.7 mg/dLNormal8.4-10.2[facility] Comment on above:Performed By: #### CMP, LIPID #### [facility] [address] [place] [address] Dr. Nancy ThorntonChloride [Moles/Vol]105 mmol/MPuhuzn35-357Esl [facility] Comment on above:Performed By: #### CMP, LIPID #### [facility] [address] [place] [address] Dr. Nancy ThorntonCO2 [Moles/Vol]29.3 mmol/ZNbphma24.0-30.0The [facility] Comment on above:Performed By: #### CMP, LIPID #### [facility] [address] [place] [address] Dr. Nancy ThorntonCreatinine [Mass/Vol]0.81 mg/dLNormal0.52-1.04The [facility] HospitalComment on above:Performed By: #### CMP, LIPID #### [facility] [address] [place] [address] Dr. Nancy SimsGFR-AF QATARI>60Normal>=60The [facility] HospitalComment on above:Performed By: #### CMP, LIPID #### [facility] [address] [place] [address] Dr. Nancy SimsGFR-NON AF QATARI>60Normal>=60The [facility] HospitalComment on above:Performed By: #### CMP, LIPID #### [facility] [address] [place] [address] Dr. Nancy ThorntonGlobulin (S) [Mass/Vol]3.6 g/dLNoWooster Community HospitalComment on above:Performed By: #### CMP, LIPID #### [facility] [address] [place] [address] Dr. Nancy ThorntonGlucose [Mass/Vol]103 mg/nZKqbjvm07-077VryPremier Health Atrium Medical Center Comment on above:Performed By: #### CMP, LIPID #### [facility] [address] [place] [address] Dr. Nancy ThorntonPotassium [Moles/Vol]4.1 mmol/LNormal3.4-5.0The [facility] Comment on above:Performed By: #### CMP, LIPID #### [facility] [address] [place] [address] Dr. Nancy ThorntonProtein [Mass/Vol]7.1 g/dLNormal6.1-8.2[facility] Comment on above:Performed By: #### CMP, LIPID #### [facility] [address] [place] [address] Dr. Nancy ThorntonSodium [Moles/Vol]139 mmol/PYbqyui580-000OysPremier Health Atrium Medical Center Comment on above:Performed By: #### CMP, LIPID #### [facility] [address] [place] [address] Dr. Nancy ThorntonUrea nitrogen [Mass/Vol]21.0 mg/dLCritically high7.0-17.0[facility]rium Medical CenterComment on above:Performed By: #### CMP, LIPID #### [facility] [address] [place] [address] Dr. Nancy ThorntonUrea nitrogen/Creatinine [Mass ratio]25.9 mg/mgNoWooster Community HospitalComment on above:Performed By: #### CMP, LIPID #### [facility] [address] [place] [address] Dr. Nancy Thornton Vital Signs Date TimeVital SignValuePerforming QwatvybzbOxyvgikw15-50-8772 09:44-0400Body oohqcm069.1 cmFrankie Vivar DPM Work Phone: [phone] [place], [place] [address]Cillkwsear41-70-1152 09:44-0400Body mass index (BMI) [Ratio]38.77 kg/o2Tfsrpzuy Brown DPM Work Phone: [facility] CenterOnhlbwqlal31-50-1733 09:44-0400Body cypudg614.69 kgNicholas Brown DPM Work Phone: [facility] CenterMzucwkgovh42-24-8091 09:44-0400Respiratory rate16 /minNicholas Brown DPM Work Phone: [phone] [place], [place] [address]Vwzijzdcyd18-40-3185 08:15-0400Body .1 cmTodAspirus Wausau Hospital PA Work Phone: [facility] CenterQnagvggqhl07-89-3042 08:15-0400Body mass index (BMI) [Ratio]38.77 kg/m2ToMurray County Medical Center PA Work Phone: [facility] CenterLepqotivni48-91-8071 08:15-0400Body pvalmh100.69 kgToMurray County Medical Center PA Work Phone: [facility] CenterFcgflurmby34-88-0998 08:59-0400Body .1 cmNicholas Brown DPM Work Phone: [facility] CenterQhnxdmvlac19-50-6812 08:59-0400Body mass index (BMI) [Ratio]39.94 kg/j2Vnezfqco Brown DPM Work Phone: [facility] CenterIlcbseoeya18-79-4459 08:59-0400Body .86 kgNicholas Brown DPM Work Phone: [phone] [place], [place] [address]Fquehelqnd94-24-6313 08:59-0400Respiratory rate16 /minNicholas Brown DPM Work Phone: [facility] CenterWfxprermqs82-57-8538 09:16-0400Body enphrk472.1 cmNicholas Brown DPM Work Phone: [facility] CenterEgmtkwbluo33-75-6278 09:16-0400Body mass index (BMI) [Ratio]39.94 kg/e6Uabojxxz Brown DPM Work Phone: [phone] [place], [place] [address]Dbmwmsmbau79-89-5675 09:16-0400Body bjscio257.86 kgLeeannechaz Cb DPM Work Phone: [facility] CenterHjypizqixs78-56-2939 09:16-0400Respiratory rate18 /minFrankie Vivar DPM Work Phone: [facility] CenterHtewjwpahq26-84-3435 09:18-0400Body yxfokx483.1 cmTodd Frank[place] PA Work Phone: [facility] CenterMxpffzjohz26-74-8417 09:18-0400Body mass index (BMI) [Ratio]39.94 kg/m2Todd Franktown PA Work Phone: [phone] [place], [place] 6706205-21-2025 09:18-0400Body vbudyj845.86 kgTodd Franktown PA Work Phone: [phone] [place], [place] 6706205-16-2025 08:14-0400Body ycdlaf655.1 cmDavid Pocos DO Work Phone: [phone] [place], [place] 6706205-16-2025 08:14-0400Body mass index (BMI) [Ratio]39.94 kg/y9Yucyz Pocos DO Work Phone: [phone] [place], [place] 6706205-16-2025 08:14-0400Body mihbes746.86 kgDavid Pocos DO Work Phone: [phone] [place], [place] 6706204-18-2025 10:38-0400Body ovxcet382.1 cmDavid Pocos DO Work Phone: [phone] [place], [place] 6706204-18-2025 10:38-0400Body mass index (BMI) [Ratio]39.94 kg/r4Mlbcs Pocos DO Work Phone: [phone] [place] [address]-18-2025 10:38-0400Body .86 kgDavid Pocos DO Work Phone: [phone] [place] [address]-08-2025 10:37-0400Body lbbypx709.1 cmUniversity [facility]als [facility]04-08-2025 10:37-0400Body mass index (BMI) [Ratio]40.4 kg/b6EbtttteorUniversity Hospitals Health System04-08-2025 10:37-0400Body .22 kgUniversity Hospitals Health System04-08-2025 10:37-0400Diastolic blood ooqobqre33 mm[Hg][facility]04-08-2025 10:37-0400 Heart rate80 /minUniversity Hospitals Health System04-08-2025 10:37-9866CiV0% (BldA) [Mass fraction]98 %[facility]04-08-2025 10:37-0400 Systolic blood obspjefi656 mm[Hg][facility]03-20-2025 10:55-0400Body .1 cmFrankie Cb DPM Work Phone: [facility] CenterGgcigpzzij45-71-6091 10:55-0400Body mass index (BMI) [Ratio]42.6 kg/e9Tzfhxlaq Brown DPM Work Phone: [facility] CenterYizumrmbuy97-59-2374 10:55-0400Body .12 kgFrankie Cb DPM Work Phone: [facility] CenterIrmdvhphkp90-38-7913 10:55-0400Diastolic blood kzatxwoa21 mm[Hg]Frankie Vivar DPM Work Phone: [facility] CenterMimayrtlpk28-81-3676 10:55-0400Heart rate78 /min Frankie Vivar DPM Work Phone: [facility] CenterMqpmftphob80-70-7880 10:55-0400Systolic blood ivcyeerm037 mm[Hg]Frankie Vivar DPM Work Phone: [facility] CenterZjzrmfwugd98-42-6972 11:24-0500Body .1 cmMarc Dolce DPM FACFAS Work Phone: [facility] CenterOallfmlxnc60-28-8795 11:24-0500Body mass index (BMI) [Ratio]42.6 kg/m2Marc Dolce DPM FACFAS Work Phone: [facility] CenterNerddyqyab55-55-6145 11:24-0500Body igveck802.12 kgMarc Dolce DPM FACFAS Work Phone: [phone] [address] StreetCkvjvwodpu91-40-8557 11:24-0500Diastolic blood znfspidh94 mm[Hg]Danish Carballo DPM FACFAS Work Phone: [facility] CenterXscrigwzsj70-46-9239 11:24-0500Heart rate74 /min Danish Carballo DPM FACFAS Work Phone: [facility] CenterZaiievzgln90-96-9736 11:24-0500Systolic blood prlrgpvi730 mm[Hg]Danish Carballo DPM FACFAS Work Phone: [facility] CenterRecqhcxtht43-73-5709 10:13-0500Body qpuney764.1 cmNicholchaz Brown DPM Work Phone: [facility] CenterUaigmugnzw74-35-0765 10:13-0500Body mass index (BMI) [Ratio]42.6 kg/z6Wfesbugi Brown DPM Work Phone: [facility] CenterTzjfneaimo12-13-3246 10:13-0500Body .12 kgNicfainachaz Brown DPM Work Phone: [facility] CenterEvgijbdbzi52-65-3725 10:13-0500Respiratory rate18 /minNicdinora Vivar DPM Work Phone: [facility] CenterQudiqjkjcx61-94-4625 08:48-0500Body .1 cmTPocahontas Memorial Hospital PA Work Phone: [facility] CenterNapzatwuci33-54-6380 08:48-0500Body mass index (BMI) [Ratio]42.6 kg/m2[facility] PA Work Phone: [facility] CenterRzcxhrzqta01-22-5444 08:48-0500Body aojzcy418.12 kgToMurray County Medical Center PA Work Phone: [facility] CenterNjdfaxoxyz91-71-9277 11:04-0500Body pwyspt917.1 cmMarc Dolshahana DPM FACFAS Work Phone: [facility] CenterUfqptzazzh46-66-7028 11:04-0500Body mass index (BMI) [Ratio]42.6 kg/m2Marc Dolce DPM FACFAS Work Phone: [facility] CenterOohetjotbn53-46-0457 11:04-0500Body vtatbw512.12 kgMarc Brenna DPM FACFAS Work Phone: [facility] CenterXruperbllg24-40-5504 11:04-0500Diastolic blood oiqvypts82 mm[Hg]Danish Carballo DPM FACFAS Work Phone: [facility] CenterSdgppyoloy30-39-8154 11:04-0500Heart rate70 /min Danish Carballo DPM FACFAS Work Phone: [facility] CenterTnsqtkflzm52-73-8885 11:04-0500Systolic blood mm[Hg]Danish Carballo DPM FACFAS Work Phone: [facility] CenterAosgbtteoh28-92-0164 08:43-0500Blood Pressure LocationJayousif Butt 584-7206Dtsrcm-Nbrsp[address] [place], [place] 9854812-04-2024 08:43-0500Body ltfjznnpduw52.34 [degF]Ellen Butt 228-3730Sabufj-Qxhmo[address]12-04-2024 08:43-0500Diastolic blood mm[Hg]Ellen Butt 357-7506Zoawtb-Fnyeg[address] [place], [place] 9854812-04-2024 08:43-0500Heart rate71 /minEllen Butt 324-5317Rgbyro-Vhazc[address] [place], [place] 9854812-04-2024 08:43-9424YwZ2% (BldA) [Mass fraction]97 %Ellen Butt 604-0176Cdfnud-Raako[address] [place], [place] 9854812-04-2024 08:43-0500Systolic blood lydhindq898 mm[Hg]Ellen Butt 807-0457Lnymqx-Uaeoq[address] [place], [place] 9854811-08-2024 10:57-0500Body lhbtua664.1 cmMarc Brenna DPM FACFAS Work Phone: [facility] CenterGwfzhmdega72-29-8872 10:57-0500Body mass index (BMI) [Ratio]42.6 kg/m2Marc Dolce DPM FACFAS Work Phone: [facility] CenterIfmolkzqql84-49-9178 10:57-0500Body fpeaqj318.12 kgMarc Dolce DPM FACFAS Work Phone: [facility] CenterJepfhigfmp23-18-3492 10:57-0500Diastolic blood yfvucrhj38 mm[Hg]Danish Dolce DPM FACFAS Work Phone: 1([phone] [place], [place] [address]Arnewsczzt76-12-6515 10:57-0500Heart rate77 /min Danish Dolce DPM FACFAS Work Phone: [phone] [place], [place] [address]Wzhcpocfvg28-79-7732 10:57-0500Systolic blood cifwntku647 mm[Hg]Danish Dolce DPM FACFAS Work Phone: 1(055)729-[address] [place], [place] [address]Xsacaeshhq31-60-7431 09:33-0400Body .1 cmFrankie Brown DPM Work Phone: [phone])650-[address] [place], [place] [address]Gmcepebhml16-55-1306 09:33-0400Body mass index (BMI) [Ratio]42.6 kg/r6Xxxnjzjp Brown DPM Work Phone: [facility] CenterKcnkmnayav34-21-7580 09:33-0400Body payhpq008.12 kgLeeannechaz Brown DPM Work Phone: [facility] CenterNgifbzqzum68-83-4209 09:33-0400Diastolic blood bipdqywm63 mm[Hg]Frankie Vivar DPM Work Phone: 1(816)579-[address] [place], [place] [address]Qaflhhrlrr52-42-7852 09:33-0400Heart rate81 /min Frankie Vivar DPM Work Phone: [place] [address]Yzmtwhpboj70-28-8650 09:33-0400Systolic blood mm[Hg]Frankie Vivar DPM Work Phone: 1(423)380-[address] [place], [place] [address]Gfstofarer77-93-9125 10:19-0400Body waxstf653.1 cmMarera Dolce DPM FACFAS Work Phone: [facility] CenterIgrwqtrzhi57-85-3215 10:19-0400Body mass index (BMI) [Ratio]42.6 kg/m2Marc Dolce DPM FACFAS Work Phone: 1(419)[address] [place], [place] 7444610-23-2024 10:19-0400Body .12 kgMarc Dolce DPM FACFAS Work Phone: 1(419)[address] [place], [place] 7444610-23-2024 10:19-0400Diastolic blood snanqbxt97 mm[Hg]Danish Dolce DPM FACFAS Work Phone: 1(419)[address] [place], [place] 7444610-23-2024 10:19-0400Heart rate72 /min Danish Dolce DPM FACFAS Work Phone: 1(419)[address] [place], [place] 7444610-23-2024 10:19-0400Systolic blood ogibpnlf730 mm[Hg]Danish Dolce DPM FACFAS Work Phone: 1(419)[address] [place], [place] 7444610-16-2024 10:11-0400Body .1 cmMarc Dolce DPM FACFAS Work Phone: 1(419)[address] [place], [place] 7444610-16-2024 10:11-0400Body mass index (BMI) [Ratio]42.6 kg/m2Marc Dolce DPM FACFAS Work Phone: 1(419)[address] [place], [place] 7444610-16-2024 10:11-0400Body bvlmmu919.12 kgMarc Dolce DPM FACFAS Work Phone: 1(419)[address] [place], [place] 7444610-16-2024 10:11-0400Diastolic blood ikgkacxu38 mm[Hg]Danish Dolce DPM FACFAS Work Phone: 1(419)[address] [place], [place] 7444610-16-2024 10:11-0400Heart rate72 /min Danish Dolce DPM FACFAS Work Phone: 1(419)[address] [place], [place] 7444610-16-2024 10:11-0400Systolic blood ebkbdnsf479 mm[Hg]Danish Dolce DPM FACFAS Work Phone: 1(419)[address] [place] [address]-08-2024 11:21-0400Body hpsgde652.1 cmMarc Dolce DPM FACFAS Work Phone: 1(419)[address] [place] [address]-08-2024 11:21-0400Body mass index (BMI) [Ratio]42.6 kg/m2Marc Dolce DPM FACFAS Work Phone: 1(419)[address] [place], [place] 7444610-08-2024 11:21-0400Body lmliby203.12 kgMarc Dolce DPM FACFAS Work Phone: 1(419)[address] [place], [place] 7444610-08-2024 11:21-0400Diastolic blood cuijgbyc02 mm[Hg]Danish Dolce DPM FACFAS Work Phone: 1(419)[address] [place], [place] 7444610-08-2024 11:21-0400Heart rate70 /min Danish Dolce DPM FACFAS Work Phone: 1(419)[address] [place], [place] 7444610-08-2024 11:21-0400Systolic blood ngotbmtp634 mm[Hg]Danish Dolce DPM FACFAS Work Phone: 1(419)[address] [place], [place] 7444609-25-2024 10:06-0400Body svtnam090.1 cmMarc Dolce DPM FACFAS Work Phone: 1(419)[address] [place], [place] 7444609-25-2024 10:06-0400Body mass index (BMI) [Ratio]42.6 kg/m2Marc Dolce DPM FACFAS Work Phone: 1(419)[address] [place], [place] 7444609-25-2024 10:06-0400Body gujxem081.12 kgMarc Dolce DPM FACFAS Work Phone: 1(419)[address] [place], [place] 7444609-25-2024 10:06-0400Diastolic blood lqnreisd29 mm[Hg]Danish Dolce DPM FACFAS Work Phone: 1(419)[address] [place], [place] 7444609-25-2024 10:06-0400Heart rate80 /min Danish Dolce DPM FACFAS Work Phone: 1(419)[address] [place], [place] 7444609-25-2024 10:06-0400Systolic blood mm[Hg]Danish Dolce DPM FACFAS Work Phone: 1(419)[address] [place], [place] 7444608-30-2024 08:51-0400Body kdvybp623.1 cmMarc Dolce DPM FACFAS Work Phone: 1(419)[address] [place], [place] 7444608-30-2024 08:51-0400Body mass index (BMI) [Ratio]42.6 kg/m2Marc Dolce DPM FACFAS Work Phone: [facility] CenterMzzkacdrqa93-28-9356 08:51-0400Body nmrvlu714.12 kgMarc Dolce DPM FACFAS Work Phone: [facility] CenterWnizihttti94-19-2283 08:51-0400Diastolic blood wcqlzayo26 mm[Hg]Danish Dolce DPM FACFAS Work Phone: [facility] CenterVrzelgxiqd85-44-9892 08:51-0400Heart rate74 /min Danish Dolce DPM FACFAS Work Phone: 1(303)659-[address] [place], [place] [address]Vkatmohfag69-37-6779 08:51-0400Respiratory rate18 /minMarc Dolce DPM FACFAS Work Phone: [facility] CenterIybtucpjwf16-33-8837 08:51-0400Systolic blood swbqxeio028 mm[Hg]Danish Dolce DPM FACFAS Work Phone: [facility] CenterKhwxufsbhu62-99-5685 09:29-0400Body .1 cmFrankie Brown DPM Work Phone: [facility] CenterUlgonbaugw06-53-2648 09:29-0400Body mass index (BMI) [Ratio]42.6 kg/h8Pahxjdbz Brown DPM Work Phone: [facility] CenterQhyseudisc11-21-2969 09:29-0400Body aasykl871.12 kgFrankie Vivar DPM Work Phone: [place] [address]Dyxijjyacx18-34-3478 09:29-0400Diastolic blood bcyrarkx23 mm[Hg]Frankie Vivar DPM Work Phone: [place] [address]Phbnfehnst47-21-0433 09:29-0400Heart rate88 /min Frankie Vivar DPM Work Phone: [facility] CenterPvemcnqcjz06-93-7647 09:29-0400Systolic blood frvyhreg524 mm[Hg]Frankie Vivar DPM Work Phone: [place] [address]Wzndvjjlkt91-62-1726 08:11-0400Diastolic blood mm[Hg]Isela Tineo [address] [place], [place] 6751806-10-2024 08:11-0400Mean blood qwodqfcj579 mm[Hg]Isela Tineo [address] [place], [place] 6751806-10-2024 08:11-0400 Systolic blood mm[Hg]Isela Tineo [address] [place], [place] 6751806-10-2024 07:51-0400Blood Pressure LocationMohenrietta Tineo [address] [place], [place] 6751806-10-2024 07:51-0400 Diastolic blood mm[Hg]Isela Tineo [address] [place], [place] 6751806-10-2024 07:51-0400Heart rate78 /minIsela Tineo [address] [place], [place] 6751806-10-2024 07:51-7873EqH7% (BldA) [Mass fraction]99 %[facility] Tine[facility] [address] [place], [place] 6751806-10-2024 07:51-0400 Systolic blood bmstspyg495 mm[Hg]Isela Tineo [address]05-15-2024 10:15-0400Blood Pressure LocationJayousif Daquan 459-8157Nagpbu-HrzqqWilson Health05-15-2024 10:15-0400Body dlhfwtrltyp00.98 [degF]Ellenkhris Butt 727-5139Avdrdn-LlnrbWilson Health05-15-2024 10:15-0400Diastolic blood xxjloryx41 mm[Hg]Ellen Daquan 178-6547Ccpifq-RfyogWilson Health05-15-2024 10:15-0400Heart rate79 /minJorge Albertoclmonet Daquan 676-1243Svpeir-Pguky[address] [place], [place] 9854805-15-2024 10:15-5875QdM7% (BldA) [Mass fraction]97 %Ellen Butt 502-3517Kozkih-Trliw[address] [place], [place] 9854805-15-2024 10:15-0400Systolic blood jfypqnje600 mm[Hg]Ellen Butt 004-1921Ycvycj-Rcjxk[address] [place], [place] 9854803-06-2024 08:05-0500Blood Pressure LocationJaclfrankin Daquan [address] [place], [place] 9367303-06-2024 08:05-0500Body aepqpuwfcgl69.06 [degF]Ellen Butt 980-2667Waabzq-Fdqmi[address] [place], [place] 9854803-06-2024 08:05-0500Diastolic blood uuinwhmy41 mm[Hg]Ellen Butt 908-1873Qfoztr-Odqaj[address] [place], [place] 9854803-06-2024 08:05-0500Heart rate67 /minGabriellan Daquan 062-1316Dneulb-Lojlb[address] [place], [place] 9854803-06-2024 08:05-8535YoB7% (BldA) [Mass fraction]97 %Ellen Butt 534-8010Fqmtvv-Rysek[address] [place], [place] 9854803-06-2024 08:05-0500Systolic blood tididhyq590 mm[Hg]Ellen Butt 888-1910Dhkknb-Oelxu[address] [place], [place] 9854802-02-2024 08:26-0500Body ugmjhe334.1 José Miguel MANSFIELD Work Phone: noCarondelet HealthEjwdkpkihp31-12-9666 08:26-0500Body mass index (BMI) [Ratio]42.77 kg/m2Giuliano MANSFIELD Work Phone: noCarondelet HealthFvwnrazqtd51-58-5317 08:26-0500Body temperature 98.01 [degF]Giuliano MANSFIELD Work Phone: [facility] CenterQszuuquzov45-13-7664 08:26-0500Body wbivss883.57 kgTodd Franktown PA Work Phone: [facility] CenterAbmbrrgfeg73-99-8390 08:58-0500Blood Pressure LocationJacainn ler 925-7655Zjfjja-Lqwjq[address] [place], [place] 9854801-15-2024 08:58-0500Body cpoplljkjjz39.52 [degF]Ellen Butt 245-8242Kdcvnd-Qptjk[address] [place], [place] 9854801-15-2024 08:58-0500Diastolic blood mm[Hg]Ellen Butt [address] [place], [place] 9367301-15-2024 08:58-0500Heart rate63 /minGabriellan Daquan [address] [place], [place] 9367301-15-2024 08:58-7967PoH1% (BldA) [Mass fraction]98 %Ellen Butt 266-0626Ghhpkm-Hwmsb[address] [place], [place] 9854801-15-2024 08:58-0500Systolic blood frnemrly665 mm[Hg]Ellen Butt 217-7206Zgqprp-Xkrrw[address] [place], [place] 9854811-29-2023 10:40-0500Blood Pressure LocationJayousif Butt 092-5318Yzzcaw-Jiskx[address] [place], [place] 9854811-29-2023 10:40-0500Body nlrztmoobrb82.7 [degF]Ellen Butt 638-6436Brfrpi-Lvxmf[address] [place], [place] 9854811-29-2023 10:40-0500Diastolic blood shazemup99 mm[Hg]Ellen Butt 189-7319Jzizru-Njtbp[address] [place], [place] 9854811-29-2023 10:40-0500Heart rate75 /minGabriellan Daquan 558-8554Epspbv-Twcml[address] [place], [place] 9854811-29-2023 10:40-1831KnV1% (BldA) [Mass fraction]98 %Ellen Butt 664-0685Ynjcvw-MyjtjMer[facility] Vkpx07-03-2316 10:40-0500Systolic blood mm[Hg]Ellen Butt 000-5623Ciokga-IvjjbMarion Hospital Primary Gjxi32-54-4944 10:30-0400Body heightPeggy Barajas Other [employer] Other 10-27-2023 10:30-0400Body mass index (BMI) [Ratio]42.1 kg/r8Huncw Barajas Other noEtonkids Other 10-27-2023 10:30-0400Body yuuhce716.76 kgPeggy Barajas Other [employer] Other 10-27-2023 10:30-0400Diastolic blood wrcbafws53 mm[Hg] Dipti Barajas Other [employer] Other 10-27-2023 10:30-0883TvR5% (BldA) [Mass fraction]97 % Dipit Barajas Other [employer] Other 10-27-2023 10:30-0400Systolic blood uaqfqygn800 mm[Hg] Dipti Barajas Other [employer] Other 956924-22-2970 11:43-0400Diastolic blood ewtbnend52 mm[Hg] Ellen Butt 084-2761Tgdzzy-GpzloWilson Health04-07-2023 11:43-0400Mean blood lbxeteuc793 mm[Hg]Ellen Butt 020-2079Kjoaxb-Bavjb[address] [place] [address] Primary Yhbh23-06-2873 11:43-0400Systolic blood fvysanpb162 mm[Hg]Ellen Butt 639-4679Zvopsw-NgtrbMarion Hospital Primary Jroa36-26-1389 16:00-0400Body heightPeggy Barajas Other noEtonkids Other 09-21-2022 16:00-0400Body mass index (BMI) [Ratio] 42.26 kg/z8Bicug Barajas Other noEtonkids Other 09-21-2022 16:00-0400Body rpixqmnbzaz87.7 [degF]Dipti Barajas Other [facility] Other 09-21-2022 16:00-0400Body jwuaot095.21 kgPeggy Barajas Other [employer] Other 09-21-2022 16:00-0400Diastolic blood rrifyzpy65 mm[Hg] Dipti Barajas Other noE[facility]kids Other 09-21-2022 16:00-0063VxQ7% (BldA) [Mass fraction]98 % Dipti Barajas Other [employer] Other 09-21-2022 16:00-0400Systolic blood dufuezgt016 mm[Hg] Dipti Barajas Other noEtonkids Other 07-28-2022 15:03-0400Blood Pressure LocationMohenrietta Noman [facility]07-28-2022 15:03-0400 Diastolic blood vntcntis09 mm[Hg]Isela Tineo [facility]07-28-2022 15:03-0400Heart rate80 /minMohamed Noman [address]07-28-2022 15:03-7317SfY2% (BldA) [Mass fraction]98 %Isela Edwardsan [address]07-28-2022 15:03-0400 Systolic blood dqsyxbcf659 mm[Hg]Lelawil Noman [address]06-27-2022 09:58-0400 Diastolic blood cipmxtfa56 mm[Hg]Isela Noman [address]06-27-2022 09:58-0400Mean blood zonvdhyy657 mm[Hg]Isela Noman [address]06-27-2022 09:58-0400 Systolic blood tcklsrny238 mm[Hg]Lelawil Noman [address] [place], [place] 6751806-27-2022 09:54-0400Blood Pressure LocationMohamed Noman [address]06-27-2022 09:54-0400 Diastolic blood evfzaeek34 mm[Hg]Isela Edwardsan [address]06-27-2022 09:54-0400Heart rate74 /minMohamed Noman [address]06-27-2022 09:54-2856WxH5% (BldA) [Mass fraction]99 %Isela Noman [address]06-27-2022 09:54-0400 Systolic blood fqoltchc401 mm[Hg]Isela Noman [address]05-17-2022 11:38-0400Blood Pressure LocationCaroline SPETTEL 042-0685Zlvycb-MwvhaMarion Hospital Primary Care 05-17-2022 11:38-0400Body nqxptgmutfg11.6 [degF] Rupa RODRIGUEZ 515-7030Bbrcji-SxzpeMarion Hospital Primary Care 05-17-2022 11:38-0400Diastolic blood mm[Hg] Rupa FALLONEVEPATO 762-7078Rzagdr-SkrusMarion Hospital Primary Care 05-17-2022 11:38-0400Heart rate73 /minCaroline ALEKS 460-9168Dvimko-ZypnoMarion Hospital Primary Care 05-17-2022 11:38-0874LfW2% (BldA) [Mass fraction]96 % Rupa RODRIGUEZ 975-0555Krtgif-FuzeaMarion Hospital Primary Care 05-17-2022 11:38-0400Systolic blood puyfuwly045 mm[Hg] Rupa RODRIGUEZ 333-7589Ibvvdn-BbubuMarion Hospital Primary Care Encounters Encounter DateEncounter TypeCare ProviderFacilityStart: 29-30-3881omyazncjopPpsk L SchwabFacility:[facility] BellevueStart: 38-91-5940afpyxpqlwkCrlt L Silvia [facility]Start: 09-23-2025 End: 58-03-9722Aobdlm flowsIsaac Vivar DPM Work Phone: noMS CI PODIATRYStart: 09-23-2025 End: 32-84-8400Qqlkdv flowsIsaac Vivar DPM Work Phone: noMS CI PODIATRYStart: 09-23-2025 End: 48-82-2804Nimssvc encounter procedureNicdinora Vivar DPM Work Phone: noms CI PODIATRYComment on above:Pain due to onychomycosis of toenails of both feet (Primary Dx); Venous insufficiencyStart: 09-23-2025 End: 71-71-2926swnfahqokyWKGLFAAK A BROWNNot AvailableStart: 09-21-2025 ambulatoryJodi SchwabFacility:FT BellevueStart: 09-03-2025 End: 81-32-5663Yqimajt encounter procedureGiuliano MANSFIELD Work Phone: [facility] [place] OrthopaedicsComment on above:Primary osteoarthritis of knees, bilateral (Primary Dx)Start: 09-03-2025 End: 47-09-0499ooatfxhmzhXPVD D HILLSNot AvailableStart: 07-08-2025 End: 94-65-1983Tbkfpp flowsheetNicdinora A Brown DPM Work Phone: [facility] CI PODIATRYStart: 07-08-2025 End: 15-04-2772Mmxwhz flowsheetNicholas A Brown DPM Work Phone: [facility] CI PODIATRYStart: 07-08-2025 End: 60-75-0910Gleoomw encounter procedureNicdinora Vivar DPM Work Phone: [facility] CI PODIATRYComment on above:Pain due to onychomycosis of toenails of both feet (Primary Dx); Venous insufficiencyStart: 07-08-2025 End: 14-23-5130rslmjaaivxRNJMMAIE A BROWNNot AvailableStart: 04-27-2025 End: 04-79-8504akxezokiobWbyp L SchwabFacility:FT FM BellevueStart: 04-22-2025 End: 17-50-0095Pcosqj flowsheetNicholas A Brown DPM Work Phone: [facility] CI PODIATRYStart: 04-22-2025 End: 54-30-5359Uxvndv flowsheetNicholas A Brown DPM Work Phone: [facility] CI PODIATRYStart: 04-22-2025 End: 13-21-1711Gletcff encounter procedureNicdinora Wallace Brown DPM Work Phone: [facility] CI PODIATRYComment on above:Pain due to onychomycosis of toenails of both feet (Primary Dx); Venous insufficiencyStart: 04-22-2025 End: 58-24-9429Ojt Drop offJodi L [place] [facility] Start: 04-22-2025 End: 72-34-6146sdfqzufmxwIqhf L SchwabFacility:FT FM BellevueStart: 04-14-2025 End: 18-94-9876Ciednd flowsheetTojeannie MANSFIELD Work Phone: [phone] ORTHOStart: 04-14-2025 End: 79-45-3818Zlpvac flowsheetGiuliano Garcia PA Work Phone: [phone] ORTHOStart: 04-14-2025 End: 22-64-5802Kmnhhzq encounter procedureTojeannie MANSFIELD Work Phone: [phone] NB ORTHOComment on above:Primary osteoarthritis of knees, bilateralStart: 04-14-2025 End: 35-78-2912putbxtjgvoEXKI D HILLSNot AvailableStart: 04-09-2025 End: 46-13-0452Fxuclb flowsheetDavid A Pocos DO Work Phone: [phone] ORTHOStart: 04-09-2025 End: 20-41-8798Ntmwte flowsheetDavid A Pocos DO Work Phone: [phone] ORTHOStart: 04-09-2025 End: 60-16-1142Rrhzpcy encounter procedureDavid A Pocos DO Work Phone: [phone] NB ORTHOComment on above:Impingement syndrome of right shoulder (Primary Dx); Arthritis of right shoulder region; Calcific tendinitis of right shoulderStart: 04-09-2025 End: 90-55-0120dqrwmejjnkCALLQ A POCOSNot AvailableStart: 03-12-2025 End: 30-09-1938Iosohrg encounter procedureDavid A Pocos DO Work Phone: [facility] NB ORTHOComment on above:Right shoulder pain, unspecified chronicity (Primary Dx); Impingement syndrome of right shoulder; Arthritis of right shoulder region; Calcific tendinitis of right shoulderStart: 03-12-2025 End: 58-14-8840lzaqhaytddOFDCF A POCOSNot AvailableStart: 03-12-2025 End: 05-81-1398gfrgymiiklOCVRX A POCOSNot AvailableStart: 03-02-2025 End: 98-68-1883avzehofwtxVptvvmkqyHighland District Hospital Work Phone: Start: 03-02-2025 End: 64-91-1465Ivysoaq encounter procedureYadkin [facility] Phys[facility] Work Phone: Start: 02-11-2025 End: 21-30-0479Umxbmbm encounter procedureFrankie Vivar DPM Work Phone: NOTL CI PODIATRYComment on above:Pain due to onychomycosis of toenails of both feet (Primary Dx); Venous insufficiency; Right Achilles tendinitisStart: 02-11-2025 End: 88-59-7755sgggltaxzlMKXDKNUD A BROWNNot AvailableStart: 02-02-2025 End: 99-90-5391azacvrjlgwCeiv L SchwabFacility:FT FM BellevueStart: 12-04-2024 End: 94-21-5478Xqwcks flowsheetMarc D Dolce DPM FACFAS Work Phone: [facility] ASC PODStart: 12-04-2024 End: 61-14-5438Mbsabc flowsheetMarc D Dolce DPM FACFAS Work Phone: [facility] ASC PODStart: 12-04-2024 End: 10-42-0328Scqmxz outpatient visit 15 minutesMarc D Dolce DPM FACFAS Work Phone: [facility] NMA PODComment on above:Achilles rupture, right, initial encounter (Primary Dx); Right Achilles tendinitisStart: 12-04-2024 End: 72-65-7698hwvgujajlsJIWZ D DOLCENot AvailableStart: 12-03-2024 End: 73-52-0602Iyfqnb flowsheetNicdinora Vivar DPM Work Phone: [facility] CI PODIATRYStart: 12-03-2024 End: 38-13-5954Boyfzz flowsheetFrankie Vivar DPM Work Phone: [facility] CI PODIATRYStart: 12-03-2024 End: 17-42-1933Iaonomr encounter procedureFrankie Vivar DPM Work Phone: [facility] CI PODIATRYComment on above:Pain due to onychomycosis of toenails of both feet (Primary Dx); Venous insufficiencyStart: 12-03-2024 End: 29-19-4753ofcqhizwptWKNQFYOU A BROWNNot AvailableStart: 11-13-2024 End: 80-29-7594Xdrpvbp encounter procedureTodd Fran Garcia PA Work Phone: [facility] NB ORTHOComment on above:Primary osteoarthritis of knees, bilateral (Primary Dx)Start: 11-13-2024 End: 39-99-9926alxefirvrdUUSF Fran HILLSNot AvailableStart: 10-28-2024 End: 08-10-8337Fpqwyk flowsheetMarc D Dolce DPM FACFAS Work Phone: [facility] ASC PODStart: 10-28-2024 End: 53-74-2066Nhxcnh flowsheetMarc D Dolce DPM FACFAS Work Phone: [facility] ASC PODStart: 10-28-2024 End: 15-48-9579Feqzlw follow up visit related to original pxMarc D Dolce DPM FACFAS Work Phone: [facility] NMA PODComment on above:Achilles rupture, right, initial encounter (Primary Dx)Start: 10-28-2024 End: 72-61-2293kbkhcdiavrPJSX D DOLCENot AvailableStart: 10-28-2024 End: 35-73-8685pfgggmipcjUcupobj Grace MisslerFacility:[facility] PCStart: 10-28-2024 End: 36-14-1035Dlwunzh encounter procedureEllen Butt 867-5055Hznkch-SbxfyMarion Hospital Primary Care Start: 10-23-2024 End: 25-53-4015fmafhtvujvKsvynjp Grace MisslerFacility:FTMCStart: 10-23-2024 End: 10-82-7730Xnqhrwf encounter procedureEllen Butt [facility] Start: 10-02-2024 End: 22-34-9789Vmzkcf flowsheetMarc D Dolce DPM FACFAS Work Phone: noms ASC PODStart: 10-02-2024 End: 99-80-1596Ifmcyg flowsheetMarc D Dolce DPM FACFAS Work Phone: noms ASC PODStart: 10-02-2024 End: 95-30-2186aajonaxjiqVTME D DOLCENot AvailableStart: 10-02-2024 End: 86-77-6732Zxwdqbc encounter procedureMarc D Dolce DPM FACFAS Work Phone: noms NMA PODComment on above:Achilles rupture, right, initial encounter (Primary Dx); Ankle contracture, rightStart: 09-24-2024 End: 32-42-2441Fcdlpf flowsheetNicholas A Brown DPM Work Phone: noms CI PODIATRYStart: 09-24-2024 End: 71-12-7431Vjstmm flowsheetNicholas A Brown DPM Work Phone: noms CI PODIATRYStart: 09-24-2024 End: 95-64-1372Taqcnpj encounter procedureNicfainaas A Brown DPM Work Phone: noMS CI PODIATRYComment on above:Pain due to onychomycosis of toenails of both feet (Primary Dx); Venous insufficiencyStart: 09-16-2024 End: 53-87-5377Iypijp flowsheetMarc D Dolce DPM FACFAS Work Phone: [phone] ASC PODStart: 09-16-2024 End: 68-84-4097Qftawn flowsheetMarc D Dolce DPM FACFAS Work Phone: [phone] ASC PODStart: 09-16-2024 End: 33-46-2560Mbtwwq follow up visit related to original pxMarc D Dolce DPM FACFAS Work Phone: [phone] NMA PODComment on above:Achilles rupture, right, initial encounter (Primary Dx)Start: 09-09-2024 End: 30-49-0206Dcestw flowsheetMarc D Dolce DPM FACFAS Work Phone: [phone] ASC PODStart: 09-09-2024 End: 24-54-6888Nbftlc flowsheetMarc D Dolce DPM FACFAS Work Phone: [phone] ASC PODStart: 09-09-2024 End: 75-24-4608Busbgvn encounter procedureMarc D Dolce DPM FACFAS Work Phone: [phone] NMA PODComment on above:Achilles rupture, right, initial encounter (Primary Dx); Right Achilles tendinitis; Contracture, ankle, left [M24.572]Start: 09-04-2024 End: 71-55-4040Ndtuwqsmm encounterNita Godinez RNNOMS NMA PODComment on above: Medication ReactionStart: 09-01-2024 End: 07-57-8204Hjeotr flowsheetMarc D Dolce DPM FACFAS Work Phone: [phone] ASC PODStart: 09-01-2024 End: 76-41-8334Bhkfzt flowsheetMarc D Dolce DPM FACFAS Work Phone: [phone] ASC PODStart: 09-01-2024 End: 89-10-9303Ljjbpki encounter procedureMarc D Dolce DPM FACFAS Work Phone: [phone] NMA PODComment on above:Achilles rupture, right, initial encounter (Primary Dx)Start: 08-27-2024 End: 73-49-8086Hle Drop offMarc D DeliciaceOhiohealth Riverside [facility] Start: 08-27-2024 End: 38-65-9499Rlgrnfngd encounterMarc D Dolce DPM FACFAS Work Phone: noms WH PODStart: 08-27-2024 End: 83-60-6282xakzllzowjBgwo D DolceFacility:FTMCStart: 08-24-2024 End: 04-31-3330lenxnhkhzbAvmsfe E. RossFacility:[facility] BellevueStart: 08-19-2024 End: 96-28-9441Afkuis flowsheetMarc D Dolce DPM FACFAS Work Phone: noms ASC PODStart: 08-19-2024 End: 67-76-6658Vjjiwa flowsheetMarc D Dolce DPM FACFAS Work Phone: noms ASC PODStart: 29-55-5485anizwudfqjTdgvaxw [facility]kStart: 08-19-2024 End: 56-66-7035Wqrprs outpatient visit 25 minutesMarc D Dolce DPM FACFAS Work Phone: noms NMA PODComment on above:Achilles rupture, right, initial encounter (Primary Dx)Start: 08-18-2024 End: 21-69-1113xxcptzmrkxAksa L SchwabFacility:[facility] [place]vueStart: 08-17-2024 End: 87-23-1249Takrzvyls Result EncounterMarc D Dolce DPM FACFAS Work Phone: noms External Department UnsolicitedStart: 08-17-2024 End: 60-39-7632Xhvwueisf Result EncounterMarc D Dolce DPM FACFAS Work Phone: noms External Department UnsolicitedStart: 08-14-2024 End: 62-03-5029Hmffvwpnp Result EncounterMarc D Dolce DPM FACFAS Work Phone: NOMS External Department UnsolicitedStart: 08-14-2024 End: 00-02-7787Bnyrzsziq Result EncounterMarc D Dolce DPM FACFAS Work Phone: noms External Department UnsolicitedStart: 07-24-2024 End: 94-07-0814Cmxzws flowsheetMarc D Dolce DPM FACFAS Work Phone: noMS ASC PODStart: 07-24-2024 End: 46-64-3406Oiyyby flowsheetMarc D Dolce DPM FACFAS Work Phone: noMS ASC PODStart: 07-24-2024 End: 10-41-6963Nltacq outpatient visit 25 minutesMarc D Dolce DPM FACFAS Work Phone: noms NMA PODComment on above:Achilles rupture, right, initial encounter (Primary Dx)Start: 07-17-2024 End: 12-86-2567pppcneiqxcQkac L SchwabFacility:FT FM BellevueStart: 07-16-2024 End: 78-96-6773Asrbke flowsheetNicholas A Brown DPM Work Phone: noms CI PODIATRYStart: 07-16-2024 End: 52-62-6047Cxmoxj flowsheetNicholas A Brown DPM Work Phone: noms CI PODIATRYStart: 07-16-2024 End: 79-70-2218Ighutf outpatient visit 15 minutesNicfainaas Rodrigo Brown DPM Work Phone: noms CI PODIATRYComment on above:Achilles rupture, right, initial encounter (Primary Dx); Venous insufficiency; Right Achilles tendinitisStart: 05-04-2024 End: 60-50-9492jdyovdcoqwVipfczi Grace MisslerFacility:FTMCStart: 05-04-2024 End: 99-66-8804Jlbcdnm encounter procedureMohamed Elizabeth Tineo [facility] Start: 04-08-2024 End: 19-35-3745sogwgjylzwVldqefd Irene MisslerFacility:[place] PCStart: 04-08-2024 End: 81-76-2060Xyogvua encounter procedureJaclynn Irene Missler [phone]-FedkzMar[facility] Start: 04-08-2024 End: 13-26-8512Jxkl adult monitoring check doneJaclynn Irene Missler [phone]-RxsbrMarion Hospital [facility] Care Start: 03-27-2024 End: 40-27-7638tgclgebbocJxfbjui Irene MisslerFacility:FTMCStart: 03-27-2024 End: 67-50-8466Xfqegul encounter procedureJaclynn Irene Missler [facility] Start: 01-29-2024 End: 07-24-8790vkjhrgkkwtSvprrwf Irene MisslerFacility:[place] PCStart: 01-29-2024 End: 03-60-4660Asxsaon encounter procedureJaclynn Irene Missler [phone]-OpdvgMarion Hospital [facility] Start: 01-29-2024 End: 05-72-9882Citf adult monitoring check doneJaclynn Irene Missler [phone]-PmwxcMarion Hospital [facility] Start: 69-60-5885Yuikt abstractingTojeannie MANSFIELD Work Phone: NOMS NB ORTHOStart: 12-27-2023 End: 59-56-8049Bhusaqx encounter procedureGiuliano MANSFIELD Work Phone: NOMS NB ORTHOComment on above:Primary osteoarthritis of knees, bilateral (Primary Dx)Start: 12-09-2023 End: 55-91-3295nifmsggsdzVtxxylq Irene MisslerFacility:[facility] PCStart: 12-09-2023 End: 46-98-6373Ymghhtk encounter procedureEllen Butt [phone]-LgkjpMarion Hospital [facility] Start: 10-23-2023 End: 37-83-9516Esckdaj encounter procedureEllen Butt [phone]-TkjtxMarion Hospital [facility] Start: 69-63-9546Zfyaav outpatient visit 15 minutes [facility] OutPtStart: 09-20-2023 End: 70-29-2988kgnorjimjyTlwpx [facility] [employer] Other Start: 04-19-2023 End: 12-28-3582Rnjttmj encounter procedureEllen Butt [facility] Start: 03-27-2023 End: 84-39-5156Cmoiivo encounter procedureEllen Butt [facility] Start: 03-01-2023 End: 96-41-9570Uammgfh encounter procedureEllen Butt [phone]-NhpdoMarion Hospital [facility] Care Start: 08-15-2022 End: 99-92-5128Mvyyrjj encounter procedureCaroline Spettel Work Phone: [facility]-Sleep LabStart: 08-15-2022 End: 26-04-4248vtgncdecvtRgtur Barajas Other [facility] [employer] Other Start: 22-03-5474Vvnvjb outpatient visit 25 minutes DiptiOhio[facility] SouthStart: 08-09-2022 End: 81-72-1030lrlijabhjdIEHBIPDX SPETTELFacility:S3Jykov: 06-21-2022 End: 06-81-7676Pprlpnd encounter procedureMohenrietta Tineo [facility] Start: 06-11-2022 End: 97-83-0211pwdenevirzGYEGDPMP SPETTELFacility:X2Sutvb: 05-21-2022 End: 22-74-1754Afxsvxw encounter procedureMohenrietta Tineo [facility] Start: 04-10-2022 End: 28-17-2464Uujrwio encounter procedureCarreji MCDUFFIEEL [phone]-GnvegMarion Hospital [facility] Care Start: 03-01-2022 End: 99-41-0135ngxtralxduYAOCMWTM SPETTELFacility:C8Cyqxd: 09-14-2021 End: 00-72-3976btibmezsqmTQLTCQQW SPETTELFacility:H1 Procedures DateProcedureProcedure DetailPerforming ClinicianStart: 42-94-5910Azcixqydzqfvrn aspir&/inj major jt/bursa w/o usTojeannie MANSFIELD Work Phone: Start: 19-22-5025Phakdphofw examination knee 3 views Giuliano MANSFIELD Work Phone: Start: 69-14-0234Ldsizayliwkfnp aspir&/inj major jt/bursa w/o usJason A Brown DO Work Phone: Start: 51-80-1415Mdgzvssltbdtyz aspir&/inj major jt/bursa w/o usDavid A Pocos DO Work Phone: Start: 24-02-7870Cegrt shoulder complete minimum 2 viewsDavid A Pocos DO Work Phone: Start: 52-92-0978Blhvmutatqybko aspir&/inj major jt/bursa w/o usTodd Fran Garcia PA Work Phone: Start: 69-79-4010Xlwvfqzdih examination knee 3 views Giuliano Garcia PA Work Phone: Start: 16-90-4334YR CHEST 2VMarc D Dolce DPM FACFAS Work Phone: Start: 66-22-8677CRA 12-LEADMarc D Dolce DPM FACFAS Work Phone: Start: 37-62-2000GUK CBC WITH AUTO DIFFMarc D Dolce DPM FACFAS Work Phone: Start: 97-89-6287Eofseubqnqlyfw aspir&/inj major jt/bursa w/o usTodd D Franktown PA Work Phone: Start: 66-90-5157Ubfgfgwgce examination knee 3 views Giuliano Garcia PA Work Phone: Start: 13-25-3922Jigoevdt extraction and insertion of intraocular lensCaroline SPETTEL Start: 76-80-7617Zbyhqynx extraction and insertion of intraocular lensCaroline SPETTEL Start: 25-50-8531AptawsdamooGrgh Franktown PA Work Phone: Start: 13-35-7418KhmewpgqvfsRijzpojf SPETTEL Repair of tendo achillesJaclynn Daquan Plan of Treatment DateCare ActivityDetailAuthorStart: 97-58-5985Mcodxvdwa for malignant neoplasm of colonNOMS HealthcareStart: 12-07-2025 End: 95-32-4019Eeijfnc encounter dysdpzsdy00/13/2026 8:40 AM EST Office Visit [facility] [place] [facility] [address] [place] [address] Martha Chua MD [address] [place] [id number] SARAH Villalba OtolaryngologyStart: 12-01-2025 End: 89-64-5602Pwztudyu Dftrkkh1012/01/2025 8:45 AM EST Clinical Support SARAH Villalba Audiology [address] [facility] [address] [place], [id number] Leanna Giang, [facility] [address] [place] [place] [address] NOMJaelyn Villalba AudiologyStart: 09-23-2025 End: 84-30-9542Akabqja encounter procedureNOMS CI PODIATRYComment on above:Pain due to onychomycosis of toenails of both feet (Primary Dx); Venous insufficiencyStart: 81-43-5490HRXVP-19 Vaccine ( season)COVID- 19 Vaccine ( season)NOMS HealthcareStart: 32-29-9333Iidefbdtx vaccinationInfluenza Vaccine (#1)[facility]OMS HealthcareStart: 07-08-2025 End: 97-13-7632Cvomacg encounter koavujbkt87/14/2025 9:00 AM EDT Office Visit [facility] 112 [facility] [address] [place] [address] Frankie Vivar, DPM [address] [address] Pain due to onychomycosis of toenails of both feet (Primary Dx); Venous insufficiencyNOMS CI PODIATRYComment on above:Pain due to onychomycosis of toenails of both feet (Primary Dx); Venous insufficiencyStart: 07-01-2025 End: 05-31-1844Ubhujke encounter kufrzpohn81/07/2025 9:10 AM EDT Office Visit [facility] [address] [facility] [address] [place] [phone] Frankie Vivar, DPM [address] [address] NOMS CI PODIATRYStart: 04-22-2025 End: 05-23-8040Lgpsuzz encounter procedureNOMS CI PODIATRYComment on above:Pain due to onychomycosis of toenails of both feet (Primary Dx); Venous insufficiencyStart: 04-14-2025 End: 93-94-2713Ejdcdlm encounter procedureNOMS NB ORTHOComment on above:Arrived Start: 04-09-2025 End: 99-39-1880Fvfeqag encounter procedureNOMS NB ORTHOComment on above:Arrived Start: 02-11-2025 End: 49-34-3482Ppgukqa encounter /20/2025 10:50 AM EDT Office Visit [facility] [address] [place] [address] Frankie Vivar, DPAleida [address] [facility] [address] [place] [address] NOMS CI PODIATRYStart: 12-14-7718hdeqtpptciEceahiymaj Facility:[place] PCStart: 12-04-2024 End: 02-40-2246Pswyjse encounter procedureNOMS NMA PODComment on above:Arrived Start: 12-03-2024 End: 44-77-7886Fxqzvcl encounter procedureNOMS CI PODIATRYComment on above:Pain due to onychomycosis of toenails of both feet (Primary Dx); Venous insufficiencyStart: 11-13-2024 End: 84-75-0641Kjmdihz encounter wbnuozqte31/20/2024 9:00 AM EST Office Visit [facility] NB [facility]TH[facility] [address] [place] [phone] Giuliano Garcia PA [address] [place] [address] NOMS NB ORTHOStart: 10-28-2024 End: 92-52-0985Qdqcmec encounter nfyiuxjwg70/04/2024 10:20 AM EST Office Visit [facility] NMA POD [address] [place] [address] Danish Carballo, DPM FACFAS [address] [facility] [place] [address] NOMS NMA PODStart: 10-02-2024 End: 85-09-1727Flvlmto encounter rnexdevgg28/08/2024 10:30 AM EST Office Visit [facility] NMA POD [address] [facility]ITAL[facility] [place] [phone] Danish Carballo, DPM FACFAS [address] [place] [address] NOMS NMA PODStart: 09-24-2024 End: 76-35-0128Avidvtj encounter procedureNOMS CI PODIATRYComment on above:Pain due to onychomycosis of toenails of both feet (Primary Dx); Venous insufficiencyStart: 09-16-2024 End: 95-01-1598Vxgjgng encounter procedureNOMS NMA PODComment on above:Arrived Start: 09-09-2024 End: 91-08-9167Hpcdrtz encounter procedureNOMS NMA PODComment on above:Arrived Start: 09-03-2024 End: 46-56-8065Fxktmvp encounter aveljjcif85/10/2024 9:40 AM EDT Office Visit [facility] 112 [facility] [address] [place] [address] Frankie Vivar DPM [address] [facility] 5 [place] [address] NOMS CI PODIATRYStart: 09-01-2024 End: 55-42-6201Kymrslf encounter procedureNOMS NMA PODComment on above:Arrived Start: 08-27-2024 End: 91-00-2971Beakors encounter procedureNOMS EXT DEPStart: 08-19-2024 End: 14-92-9553Ycxvlbh encounter procedureNOMS NMA PODComment on above:Arrived Start: 67-26-6617Scdkgbjqz vaccinationInfluenza Vaccine (#1)[facility] Healthcare Start: 07-16-2024 End: 93-87-3025Tlpjqak encounter skadvghnr80/22/2024 9:30 AM EDT Office Visit [facility] CI PODIATRY [address] [address] Frankie Vivar DPM [address] [address] Achilles rupture, right, initial encounter (Primary Dx); Venous insufficiency; Right Achilles tendinitisNOMS CI PODIATRYComment on above:Achilles rupture, right, initial encounter (Primary Dx); Venous insufficiency; Right Achilles tendinitisStart: 01-30-2024 End: 00-60-0062Zzmtbgc encounter emvhmvepn54/07/2024 8:50 AM EST Procedure Visit [facility] CI PODIAT[facility] [address] [address] Frankie Vivar DPM [address] [address] NOMS CI PODIATRYStart: 12-27-2023 End: 31-82-5933Onokkjc encounter mwtqwyinq62/02/2024 8:30 AM EST Office Visit [facility] NB [facility]THO [address] [place] [address] Giuliano Garcia PA [address] [place] [address] NOMS NB ORTHOStart: 83-24-8126Zmidbbbgs for malignant neoplasm of breastMammogramNOMS HealthcareStart: 32-87-1549FXpB/Tdap/Td Vaccines (1 - Tdap)DTaP/Tdap/Td Vaccines (1 - Tdap)NOMS HealthcareStart: 54-60-3094Srnutjoor for malignant neoplasm of colonNOMS Healthcare Immunizations Immunization DateImmunizationNotesCare LedqhxqlQkmvhnrq57-60-3815pebnznpbw virus vaccine, unspecified formulationFrankie Vivar DPM Work Phone: [facility] CenterLgxmjuuvnf87-51-5917hknnvurol virus vaccine, unspecified formulationNicfainachaz Vivar DPM Work Phone: [phone]-OoxavMar[facility] Hospital Primary Inka01-87-9794 influenza virus vaccine, unspecified formulationJaclynn Missler [phone]-FoiifMarion Hospital Primary Nwmx64-15-2742 SARS-CoV-2 (COVID-19) mRNAMUL.ORD!y96674Ehuvske Missler [phone]-WpvzlMarion Hospital Primary CareComment on above:Result Comment: 2023-10-22: ZTI7438-55-8317iybsyptly virus vaccine, unspecified formulationJaclynn Missler [phone]-IoszpMarion Hospital Primary Qfiz13-17-0952 SARS-CoV-2 (COVID-19) mRNA-1273 vaccineJaclynn Missler [phone]-IplpuMarion Hospital Primary CareComment on above:Result Comment: 2023-10-22: HYT2500-10-4252LWCL-LcG-5 (COVID-19) mRNA-1273 vaccineJaclynn ler [phone]-ZlfjuMarion Hospital Primary CareComment on above:Result Comment: 2023-10-22: VRU3237-37-4600ibzhsnzmq virus vaccine, unspecified formulationCaroline SPETTEL 829-2737Qffhft-OcuxuMarion Hospital Primary Care 1200364-28-9635kdhcrdhbb virus vaccine, unspecified formulationJaclynn Missler [phone]-UybxbMarion Hospital Primary Cspy58-37-6610 SARS-CoV-2 (COVID-19) mRNA-1273 vaccineCaroline SPETTEL [phone]-ArqixMarion Hospital Primary Care Comedqh on above:Result Comment: 2nd Lmdhztb66-89-6771 SARS-CoV-2 (COVID-19) xQTP-3377 vaccineCaroline SPETTEL [phone]-UrthmMarion Hospital Primary Care Comment on above:Result Comment: 1st Nqpdrvn67-87-7620 zoster vaccine, liveCaroline SPETTEL 188-7451Towlok-HzpufMarion Hospital Primary Care 10-232858-13-6505etdqkxnlf virus vaccine, unspecified formulationCaroline SPETTEL 000-9351Lwvjbp-RxhswMarion Hospital [facility] Care 10-622179-36-5273divwzc vaccine, liveCaroline SPETTEL 444-4542Rczdfh-QogrkMarion Hospital Primary Care 08005064-26-9051hmmsysaza virus vaccine, unspecified formulationJaclynn Missler 154-3447Rdtmsk-SwqzmMarion Hospital Primary Sgwx60-59-1240 pneumococcal polysaccharide vaccine, 23 valentJaclynn Missler 911-0548Hhziou-JydfaMarion Hospital Primary Nfjj41-13-3935 influenza virus vaccine, unspecified formulationCaroline SPETTEL 734-2817Ovqbzx-MsmuqMarion Hospital Primary Care 11-439542-04-9233lvycojqldoyb conjugate vaccine, 13 valent Rupa SPETTEL 853-5361Qnacse-QrtudMarion Hospital Primary Care 10258099-82-1304nnamrclpeoxo polysaccharide vaccine, 23 valentCaroline SPETTEL 120-6782Jxlvay-ZcwqaMarion Hospital Primary Care 11001317-84-5585afaezbmhf virus vaccine, unspecified formulationJaclynn Missler 336-5827Zfncsk-IwbikMarion Hospital Primary Stse86-67-3244 influenza virus vaccine, unspecified formulationJaclynn Missler 338-0949Plqlhl-SeyplMarion Hospital Primary Eatq27-09-3735 pneumococcal polysaccharide vaccine, 23 valentEllen Butt 655-6355Ajqlmd-XlzzhMarion Hospital Primary Uyyk47-54-0732 influenza virus vaccine, unspecified formulationJayousif Butt 641-8772Yywxyx-ZncohMarion Hospital Primary Zvvt45-97-6204 zoster vaccine, liveJayousif Butt [phone]-PovnlMarion Hospital [facility] Care Payers DatePayer CategoryPayerPolicy [id number] Health Insurance [id number] [employer] [id number] 2022-Present [address] [place] [address].2.840.088020.1.13.693.2.7.3.768324.79902-07-8234Dxal-eam [id number] [id number] [id number]-v5b7-6y44a[id number] .1.502715.3.579.2.50324-66-9284Hyoceql6834414 2.0.1.664518.3.579.2.12680-40-1609Oxqalpa3960677 01.10.840.1.519345.3.579.2.60318-23-2438Dhnloei4246555 2.16840.1.804605.3.579.2.32964-18-2938Lcwzduo75434287 2.840.1.539462.3.579.2.26891-28-6550Ucwhizg84223826 2.840.1.377598.3.579.2.39202-94-4310Cyxsuuq40111419 2.0.1.999440.3.579.2.79252-45-8471Ekpfltu63811944 2..1.842478.3.579.2.24637-10-5571Wavkcap19763461 2..1.013550.3.579.2.57904-27-1193Fvdxzzz90592935 2..1.222489.3.579.2.81937-50-4009Xqtieyk31501342 2..1.921188.3.579.2.82878-19-0445Lcvqqhc39223405 2..1.031530.3.579.2.07788-25-1392Fvyjtjs86766061 2..1.291506.3.579.2.35367-47-0789Imtwzdw74007332 2..1.617783.3.579.2.03297-39-7475Rumtqhb86686398 2..1.490668.3.579.2.60824-55-2875Ybstgyy84621438 2.840.1.229952.3.579.2.85560-02-2211Tuknpkg71805721 2.0.1.551524.3.579.2.02252-14-1010Irwwfxm74737207 2.16.840.1.362365.3.579.2.49748-34-7364Almybtg05587201 2.16.840.1.400348.3.579.2.39552-39-1662Zymkwtu76314270 2.16.840.1.445565.3.579.2.10251-28-0733Jmkujjx99894380 2.16.840.1.469365.3.579.2.97796-26-4310Srzzasr56552994 2.16.840.1.865476.3.579.2.47490-17-6061Zbrbemj40514901 2.16.840.1.408934.3.579.2.65571-73-0986Tuhhfqi17434433 2.16.840.1.747402.3.579.2.156204-83-6074Adljjaq82749777 2.16.840.1.416909.3.579.2.447992-43-7865Ckltfxm59320885 2..840.1.268122.3.579.2.980189-51-0503Mywavju20865861 2.16.840.1.625459.3.579.2.386561-63-7918Usxjdxw79174300 2..840.1.442948.3.579.2.237549-22-0433Kuxaaie3355213 2.16.840.1.988442.3.579.2.862086-17-7111Goqlywd6578506 2.16.840.1.557814.3.579.2.555740-52-5430Xhxlmsl9989919 2.16.840.1.963876.3.579.2.063908-09-7971Wfwsonf2362262 2.16.840.1.376571.3.579.2.842907-21-2155Ezamjbo2445709 2.16.840.1.622370.3.579.2.199637-96-9300Exzdfmy5558016 2.16.840.1.941893.3.579.2.734630-78-8819Tekdgtl1005978 2.16.840.1.975575.3.579.2.477696-21-6095Vgbtlra8260369 2.16.840.1.810633.3.579.2.842187-63-2784Qfnwfhb5874626 2.16.840.1.309086.3.579.2.205227-03-7109Lpevnjy0833572 2.16.840.1.959843.3.579.2.158989-83-1418Jdqhcjt3574006 2.16.840.1.859411.3.579.2.590626-00-9207Wgqztqt9205000 2.16.840.1.335862.3.579.2.270281-41-5811Rqcllgp4570832 2.16.840.1.680296.3.579.2.1259UnknownStandard LIfe [id number] k4168nx9-8ou6-3gs9-37fd-e15834343gmhFjtzzit31434555 2.16840.1.113561.3.579.2.531 Social History DateTypeDetailFacilityStart: 04-10-2022 End: 82-15-7304Uitiijv smoking statusNever smoked tobacco (finding)[facility] Comment on above:denies usedenies use.Start: 03-25-2023 Tobacco smoking statusNeverMarion Hospital Primary Care Comment on above:denies usedenies use.Start: 11-21-2023 End: 81-65-5930Qch Assigned At [facility] Start: 94-19-6143Ngw [facility]igned At [facility]ertart: 09-43-9166Imfocmy use and exposureSmokeless tobacco non-userNOMS HealthcareStart: 11-21-2023 End: 25-88-2468Apsftfj intakeLifetime non-drinker (finding)[facility] HealthcareStart: 11-21-2023 End: 75-87-2331Fliduja of Social functionNOMS HealthcareStart: 04-08-1109Qtl Assigned At BirthNot on fileNOIN HealthcareStart: 03-08-2010 End: 07-66-7336YpuDvaliy (finding)[facility] NEGATED: Highlighted rowStart: NINFHistory of tobacco usePassive smokerNOIN Healthcare Medical Equipment Procedure CodeEquipment CodeEquipment Original TextEquipment IdentifierDates {01}[id number] FDAStart: 11-01-2020{01}[id number] FDAStart: 11-15-2020 TOE JOINT POROUS MEDIUMFDAStart: 54-56-4039ZAH JOINT POROUS MEDIUMFDAStart: 10-15-2018 Functional Status DvqhPkkfdspaqmQbyplpSbpmkqse25-22-0950Rgwspnwwlc StatusN/[facility] Gpyd61-90-8327Cphfnplhoa [facility] 59-44-0205Deifgmpged StatusN/[facility] Eksy79-49-4100 Functional StatusN/[facility] Ewwh99-01-9555Uqeudbukex StatusN/[facility] Knzg55-20-5767Pkcatqvlda StatusN/A [facility] Ibvp20-69-0920Whirofcbia [facility]06-27-2022Functional [facility] Clinical Notes 10-02-2021 to 09-23-2025 Note Date & ThrsIaxpBejavcay58-25-7722 History of Present illness Narrative* Frankie Vivar DPM - 09/23/2025 9:50 AM EDT Patient: Sandee Dai : 1950 PCP: Bello [...] , Rfl: cholecalciferol (Vitamin D-3) 1.25 MG (37365 UT) capsule, Take 1,250 mcg by mouth, [...] 10 Frankie Vivar DPM documented in this encounterSaint Francis Medical CenterFmhbsxcdmo15-23-0365 History of Present illness Narrative* EDUARDO Castellon - 09/03/2025 8:15 AM EDTAssociated Order(s): L Inj/Asp: bilateral knee Post-Procedure Diagnose(s): Primary osteoarthritis of knees, bilateral L Inj/Asp: bilateral knee on 09/03/2025 8:54 AM Indications: pain Details: 25 G needle, lateral approach Medications (Right): 2 mL betamethasone acetate-betamethasone sodium phosphate 6 (3-3) MG/ML Medications (Left): 2 mL betamethasone acetate-betamethasone sodium phosphate 6 (3-3) MG/ML Consent was given by the patient. * DONAL Peck - 09/03/2025 8:15 AM EDT Images from the original note were not included. Subjective Patient ID: Sandee Dai is a 75 y.o. female. Chief Complaint: Pain of the Left Knee and Pain of the Right Knee Last Surgery: No surgery found Last Surgery Date: No surgery found HPI Sandee presents to the office for routine injection of cortisone bilateral knees she is still does get benefit for short period of time. She denies any new injury. Objective Ortho Exam Patient is still maintaining reasonable range of motion she does lack about 3 degrees of full extension and has flexion of about 110. There is no prepatellar swelling redness or rash mediolateral collateral ligaments are stable. Significant patellofemoral crepitus noted mild effusion today bilaterally. Image Results: XR knee 3 views left Imaging Result: Bilateral standing PA, bilateral sunrise, and lateral of the affected knee were imaged today in the office. No real change from previous imaging ttpe-ni-etri medial compartment as well as patellofemoral no evidence of significant bony erosion causing deformity or evidence of bony tumor. XR knee 3 views right Imaging Result: Bilateral standing PA, bilateral sunrise, and lateral of the affected knee were imaged today in the office. No real change from previous imaging nldx-pa-repb medial compartment as well as patellofemoral no evidence of significant bony erosion causing deformity or evidence of bony tumor. Assessment/Plan Encounter Diagnoses: Primary osteoarthritis of knees, bilateral Orders Placed This Encounter L Inj/Asp: bilateral knee XR knee 3 views right XR knee 3 views left No follow-ups on file. Anticipate improvement with injections after 48 hours up to 1 week. May continue injections ideallyevery 4 months equaling 3 times a year. Continue cold pack 20 minutes several times a day and as needed for discomfort. Tylenol for breakthrough discomfort up to 3000 mg a day divided in 3-4 doses. documented in this encounterSaint [facility] Medical [id number] Instructions* Patient Instructions* DONAL Peck - 09/03/2025 8:15 AM EDT Anticipate improvement with injections after 48 hours up to 1 week. May continue injections ideallyevery 4 months equaling 3 times a year. Continue cold pack 20 minutes several times a day and as needed for discomfort. Tylenol for breakthrough discomfort up to 3000 mg a day divided in 3-4 doses. documented in this encounterSaint Francis Medical [id number] History of Present illness Narrative* Frankie Vivar, REGGIEM - 07/08/2025 9:00 AM EDT Patient: Sandee Dai : 1950 PCP: Bello [...] , Rfl: cholecalciferol (Vitamin D-3) 1.25 MG (18549 UT) capsule, Take 1,250 mcg by mouth, Disp: , Rfl: famotidine (Pepcid) 40 MG tablet, Take 40 mg by mouth, Disp: , Rfl: Glucosamine HCl (GLUCOSAMINE PO), , Disp: , Rfl: hydrOXYzine HCl (Atarax) 10 MG tablet, Take 20 mg by mouth, Disp: , Rfl: losartan (Cozaar) 25 MG [...] 10 Frankie Vivar DPM documented in this encounterSaint Francis Medical [id number] History of Present illness Narrative* Frankie Vivar DPM - 04/22/2025 9:20 AM EDT Patient: Sandee Dai : 1950 PCP: Bello [...] , Rfl: cholecalciferol (Vitamin D-3) 1.25 MG (78251 UT) capsule, Take 1,250 mcg by mouth, Disp: , Rfl: famotidine (Pepcid) 40 MG tablet, Take 40 mg by mouth, Disp: , Rfl: Glucosamine HCl (GLUCOSAMINE PO), , Disp: , Rfl: hydrOXYzine HCl (Atarax) 10 MG tablet, Take 20 mg by mouth, Disp: , Rfl: losartan (Cozaar) 25 MG [...] 10 Frankie Vivar DPM documented in this encounterSaint Francis Medical [id number] History of Present illness Narrative* EDUARDO Castellon - 04/14/2025 9:15 AM EDTAssociated Order(s): L Inj/Asp: bilateral knee Post-Procedure Diagnose(s): Primary osteoarthritis of knees, bilateral L Inj/Asp: bilateral knee on 04/14/2025 9:26 AM Indications: pain Details: 25 G needle, lateral approach Medications (Right): 2 mL betamethasone acetate-betamethasone sodium phosphate 6 (3-3) MG/ML Medications (Left): 2 mL betamethasone acetate-betamethasone sodium phosphate 6 (3-3) MG/ML Consent was given by the patient. * DONAL Peck - 04/14/2025 9:15 AM EDT Images from the original note were not included. Subjective Patient ID: Sandee Dai is a 75 y.o. female. Chief Complaint: Pain of the Left Knee and Pain of the Right Knee Last Surgery: No surgery found Last Surgery Date: No surgery found HPI Sandee comes in today for cortisone injections both knees it has been 5 months since she had her injections previously in his done fairly well. She is going down to the [facility] for her granddaughter's graduation this weekend and believes that the injections will help her with her mobility and tolerance to moderate walking. Objective Ortho Exam Patient maintains about 5 degrees shy of full extension on the left and 3 degrees she will full extension on right with no excessive erythema or redness. No prepatellar rash noted. She has flexion ofabout 110 degrees bilaterally. Mediolateral collateral ligaments are stable patellofemoral crepitusnoted bilaterally no prepatellar swelling redness or rash no fever of the joints. Image Results: XR shoulder 2+ views right Imaging Result: Examination of the x-rays, AP and lateral views of the right shoulder total of two views with permanent images are saved to the record, does show moderate acromioclavicular joint osteoarthritis. The acromiohumeral interval is well maintained. She does have a small calcification at the greater tuberosity area. No evidence of new or further finding of significance. Assessment/Plan Encounter Diagnoses: Primary osteoarthritis of knees, bilateral Orders Placed This Encounter L Inj/Asp: bilateral knee Follow up if symptoms worsen or fail to improve. On anticipate improvement with cortisone after 48 hours up to a week and may repeat ideally every 4months equaling 3 times a year per joint. May continue the meloxicam for anti-inflammatory effects taking with food to avoid GI upset. Tylenol for breakthrough discomfort otherwise. Cold pack 20 minutes several times a day and before bedtime if necessary for discomfort and swelling of the knees. Use of a cane or a Rollator for stability when walking on uneven surfaces or walking long distances. documented in this encounterSaint Francis Medical [id number] Instructions* Patient Instructions* DONAL Peck - 04/14/2025 9:15 AM EDT On anticipate improvement with cortisone after 48 hours up to a week and may repeat ideally every 4months equaling 3 times a year per joint. May continue the meloxicam for anti-inflammatory effects taking with food to avoid GI upset. Tylenol for breakthrough discomfort otherwise. Cold pack 20 minutes several times a day and before bedtime if necessary for discomfort and swelling of the knees. Use of a cane or a Rollator for stability when walking on uneven surfaces or walking long distances. documented in this encounterRonald [place] [id number] History of Present illness Narrative* Marla Arias - 04/09/2025 8:15 AM EDT Images from the original note were not included. Sandee Dai is a 75 y.o. female presents with chief complaint of right shoulder impingement with calcific tendonitis. HPI: Sandee returns here today for repeat evaluation of her right shoulder. She is doing fairly well. She has had several sessions of therapy. She cannot relate how many and we do not have any therapy notes here today. She is much improved. She states things are tolerable, livable. No new or interval symptoms. She has been again advancing. SUBJECTIVE: MEDICATIONS: Current Outpatient Medications Medication Instructions Calcium Carb-Cholecalciferol (Calcium + Vitamin D3) 500-10 MG-MCG chewable tablet cholecalciferol (VITAMIN D-3) 1,250 mcg famotidine (PEPCID) 40 mg Glucosamine HCl (GLUCOSAMINE PO) hydrOXYzine HCl (ATARAX) 20 mg losartan (Cozaar) 25 MG tablet Every 24 hours Multiple Vitamin (MULTIVITAMIN ADULT PO) omega-3 (FISH OIL) 300 MG capsule omeprazole (PRILOSEC) 40 mg ALLERGIES: Allergies Allergen Reactions Amoxicillin Diarrhea Clindamycin Diarrhea Alendronate Hives and Rash Other Reaction(s): Redness of Skin SURGICAL HISTORY: Past Surgical History: Procedure Laterality Date CHOLECYSTECTOMY OTHER SURGICAL HISTORY child x2 FAMILY HISTORY: Family History Problem Relation Name Age of Onset Hypertension Mother Heart disease Mother Hypertension Father Heart disease Father Arthritis Father Heart disease Other Spouse Diabetes Other Spouse SOCIAL HISTORY: Social History Tobacco Use Smoking status: Never Passive exposure: Never Smokeless tobacco: Never Vaping Use Vaping status: Never Used Substance Use Topics Alcohol use: Never Drug use: Never Depression: Not on file REVIEW OF SYMPTOMS: The review of systems, history and current medications list are all reviewed today. OBJECTIVE: Visit Vitals Ht 5' 5 Wt 240 lb BMI 39.94 kg/m Smoking Status Never BSA 2.24 m Physical Exam Her orthopedic exam here today reveals gentle arc of motion of the shoulder to be much improved. Cuff strength is grossly intact and excellent. She has no atrophy. Still has a little bit of a positive impingement at roughly 120 degrees of flexion abduction. Left shoulder is benign. Negative impingement. Neurocirculatory status is overall grossly intact. Examination of the x-rays, AP and lateral views of the right shoulder total of two views with permanent images are saved to the record, does show moderate acromioclavicular joint osteoarthritis. The acromiohumeral interval is well maintained. She does have a small calcification at the greater tuberosity area. No evidence of new or further finding of significance. ASSESSMENT AND PLAN: Assessment/Plan Right shoulder impingement with acromioclavicular joint osteoarthritis, calcific tendonitis. The findings are discussed. The treatment options are outlined. We did recommend supportive care for her and advancement of all activities. She will continue and finish out therapy. We would recommend she stay on the Meloxicam through that time frame and then discuss a wean thereafter. Her return here with myself will be left only as necessary. All questions are otherwise answered. Cosigned by Marii Posey DO at 04/12/2025 11:20 AM EDT documented in this [facility]04-18-2025 History of Present illness Narrative* Joyce Shearer MA - 03/12/2025 10:30 AM EDTAssociated Order(s): L Inj/Asp: R glenohumeral Post-Procedure Diagnose(s): Right shoulder pain, unspecified chronicity L Inj/Asp: R glenohumeral on 03/12/2025 11:11 AM Indications: pain and diagnostic evaluation Details: 22 G needle Medications: 1 mL betamethasone acetate-betamethasone sodium phosphate 6 (3-3) MG/ML * Marla Arias - 03/12/2025 10:30 AM EDT Images from the original note were not included. Sandee Dai is a 75 y.o. female presents with chief complaint of right shoulder pain. HPI: Sandee is a 75-year-old white female who presents complaining of right shoulder pain and difficulty. This has been going on for about 7-10 days. She did see a chiropractor. She is referred here. She denies any numbness or tingling. Pain is with movement. It does effect her through all activities.She is frustrated by this. Her is a bit debilitated at present and as such she is doing a lot of activities at home. SUBJECTIVE: MEDICATIONS: Current Outpatient Medications Medication Instructions Calcium Carb-Cholecalciferol (Calcium + Vitamin D3) 500-10 MG-MCG chewable tablet cholecalciferol (VITAMIN D-3) 1,250 mcg famotidine (PEPCID) 40 mg Glucosamine HCl (GLUCOSAMINE PO) hydrOXYzine HCl (ATARAX) 20 mg losartan (Cozaar) 25 MG tablet Every 24 hours meloxicam (MOBIC) 7.5 mg, Oral, Daily, With food. Multiple Vitamin (MULTIVITAMIN ADULT PO) omega-3 (FISH OIL) 300 MG capsule omeprazole (PRILOSEC) 40 mg ALLERGIES: Allergies Allergen Reactions Amoxicillin Diarrhea Clindamycin Diarrhea Alendronate Hives and Rash Other Reaction(s): Redness of Skin SURGICAL HISTORY: Past Surgical History: Procedure Laterality Date CHOLECYSTECTOMY OTHER SURGICAL HISTORY child x2 FAMILY HISTORY: Family History Problem Relation Name Age of Onset Hypertension Mother Heart disease Mother Hypertension Father Heart disease Father Arthritis Father Heart disease Other Spouse Diabetes Other Spouse SOCIAL HISTORY: Social History Tobacco Use Smoking status: Never Passive exposure: Never Smokeless tobacco: Never Vaping Use Vaping status: Never Used Substance Use Topics Alcohol use: Never Drug use: Never Depression: Not on file REVIEW OF SYMPTOMS: The review of systems, history and current medications list are all reviewed today. OBJECTIVE: Visit Vitals Ht 5' 5 Wt 240 lb BMI 39.94 kg/m Smoking Status Never BSA 2.24 m Physical Exam Her orthopedic exam reveals a positive impingement at roughly 120 degrees flexion abduction. Cuff strength is otherwise excellent. Her neurocirculatory status is overall grossly intact.Her pulses are otherwise brisk. Examination of the left shoulder reveals arc of motion without difficulty. Cuff strength is excellent. Neurocirculatory status is overall grossly intact. Her pulses are otherwise brisk. Examination of the x-rays, AP and lateral views of the right shoulder total of two views with permanent images are saved to the record, does show moderate acromioclavicular joint osteoarthritis. The acromiohumeral interval is well maintained. She does have a small calcification at the greater tuberosity area. No evidence of new or further finding of significance. ASSESSMENT AND PLAN: Assessment/Plan Right shoulder pain with impingement syndrome, osteoarthritis, calcific tendonitis. The findings are discussed. We did recommend supportive care. She is started on Meloxicam at 7.5 mgdaily with food. We did discuss corticosteroid injection. She does opt for that today as well. She is injected with 1 cc of Betamethasone and 3 cc of 1% Lidocaine plain (6 mg of Betamethasone with 3 ml of 1% Lidocaine plain). This is given per the office protocol under sterile technique using a posterior approach to the shoulder. We will do physical therapy with her. She does request the [facility] as her will be going there. We will see her back here in one month for a recheck and review. All of her questions are otherwise answered this day. Cosigned by Marii Posey DO at 03/15/2025 4:42 PM EDT documented in this encounterSaint Francis Medical [id number] History of Present illness Narrative* Frankie Vivar DPM - 02/11/2025 10:50 AM EDT Patient: Sandee Dai : 1950 PCP: Bello [...] (onychomycosis) Medications: Current Outpatient Medications: Calcium Carb-Cholecalciferol (CALCIUM + VITAMIN D3 PO), Calcium + Vitamin D3, Disp: , Rfl: Calcium Carb-Cholecalciferol (Calcium + Vitamin D3) 500-10 MG-MCG chewable tablet, Calcium + Vitamin D3, Disp: , Rfl: cholecalciferol (Vitamin D-3) 1.25 MG (17526 UT) capsule, Take 1,250 mcg by mouth, Disp: , Rfl: famotidine (Pepcid) 40 MG tablet, Take 40 mg by mouth, Disp: , Rfl: Glucosamine HCl (GLUCOSAMINE PO), Refills(s) 0, Disp: , Rfl: losartan (Cozaar) 25 MG tablet, 1 (one) time each day at the same time., Disp: , Rfl: Multiple Vitamin (MULTIVITAMIN ADULT PO), Multivitamin, Disp: , Rfl: omega-3 (FISH OIL) 300 MG capsule, Fish Oil, Disp: , Rfl: omeprazole (PriLOSEC) [address] capsule, Take 40 mg by mouth., Disp: , Rfl: tobramycin-dexAMETHasone (Tobradex) ophthalmic suspension, [...] toenails of both feet 2. Venous insufficiency 3. Right Achilles tendinitis PLAN Patient to continue with oral anti - inflammatories as needed for pain and recommended OTC medications such as tylenol or Ibuprofen Debride nails in length and thickness digits 1 through 10 Frankie Vivar DPM documented in this encounterSaint Francis Medical [id number] NotePatient Education Heart Attack A heart attack occurs when blood and oxygen supply to the heart is cut off. A heart attack can cause damage to the heart that cannot be fixed. A heart attack is also called a myocardial infarction, or SC. If you think you are having a heart attack, do not wait to see if the symptoms will go away. Get medical help right away. What are the causes? This condition may be caused by: ??? A fatty substance (plaque) in the blood vessels (arteries). This can block the flow of blood tothe heart. ??? A blood clot in the blood vessels that go to the heart. The blood clot blocks blood flow. ??? An abnormal heartbeat. ??? Some diseases, such as problems in red blood cells (anemia)orproblems in breathing (respiratoryfailure). ??? Tightening (spasm) of a blood vessel that cuts off blood to the heart. ??? A tear in a blood vessel of the heart. Other causes may include: ??? Using drugs such as cocaine or methamphetamine. ??? Low blood pressure. What increases the risk? Aging. The risk gets higher as you get older. ??? Having a personal or family history of chest pain, heart attack, stroke, or narrowing of the arteries in the legs, arms, head, or stomach (peripheral vascular disease). ??? Having taken chemotherapy or immune-suppressing medicines. ??? Being male. ??? Being overweight or obese. ??? Having any of these conditions: ? High blood pressure. ? High cholesterol. ? Diabetes. ??? Making lifestyle choices such as: ? Drinking too much alcohol. ? Not getting regular exercise. ? Smoking. What are the signs or symptoms? Chest pain. It may feel like: ? Crushing or squeezing. ? Tightness, pressure, fullness, or heaviness. ??? Pain in the arm, neck, jaw, back, or upper body. ??? Heartburn. ??? Upset stomach (indigestion). ??? Shortness of breath. ??? Feeling like you may vomit (nauseous). ??? Cold sweats. ??? Sudden light-headedness, dizziness, or passing out. ??? Feeling tired. How is this treated? A heart attack must be treated as soon as possible. Treatment may include: ??? Medicines to: ? Break up or dissolve blood clots. ? Thin your blood and help prevent blood clots. ? Treat blood pressure. ? Improve blood flow to the heart. ? Reduce pain. ? Reduce cholesterol. ??? Procedures to widen a blocked artery and keep it open. ??? Open heart surgery. ??? Making your heart strong again (cardiac rehabilitation) through exercise, education, and counseling. Follow these instructions at home: Medicines ??? Take qknu-[id number] and prescription medicines only as told by your doctor. ??? Do not take these medicines unless your doctor says it is okay: ? NSAIDs, such as ibuprofen, naproxen, or celecoxib. ? Any vitamins or supplements. ? Hormone replacement therapy that has estrogen with or without progestin. ??? If you are taking blood thinners: ? Talk with your doctor before taking any medicines that have aspirin or NSAIDs, such as ibuprofen. ? Take medicines exactly as told. Take them at the same time each day. ? Avoid doing things that could hurt or bruise you. Take action to prevent falls. ? Wear an alert bracelet or carry a card that shows you are taking blood thinners. Lifestyle ??? Do not smoke or use any products that contain nicotine or tobacco. If you need help quitting, ask your doctor. ??? Avoid secondhand smoke. ??? Exercise regularly. Ask your doctor about a cardiac rehab program. ??? Eat heart-healthy foods. Your doctor will tell you what foods to eat. ??? Stay at a healthy weight. ??? Learn ways to lower your stress level. ??? Do not use illegal drugs. Alcohol use ??? Do not drink alcohol if: ? Your doctor tells you not to drink. ? You are , may be , or are planning to become . ??? If you drink alcohol: ? Limit how [...] of hard liquor (44 mL). General instructions ??? Work with your doctor to treat other problems you may have, such as diabetes or high blood pressure. ??? Get screened for depression. Get treatment if needed. ??? Keep your vaccines up to date. Get the flu shot (influenza vaccine) every year. ??? Keep all follow-up visits. Contact a doctor if: ??? You feel very sad. ??? You have trouble doing your daily activities. ??? You get light-headed or dizzy. Get help right away if: ??? You have sudden, unexplained discomfort in your chest, arms, back, neck, jaw, or upper body. ??? You have shortness of breath. ??? You have sudden sweating or clammy skin. ??? You feel like you may vomit or you vomit. ??? You feel tired or weak. ? (more content not included)...[facility]01-10-2025 History of Present illness Narrative* Danish Carballo DPM FACFAS - 12/04/2024 10:50 AM EST Images from the original note were not included. Patient: Sandee Dai : 1950 PCP: Bello Davis MD SUBJECTIVE This is a 74 y.o. female that presents today The patient is here status post Repair of the Achillestendon right procedure. Postop week 14 They deny fevers, chills, nausea, vomiting, calf pain and shortness of breath. Pain level is being managed with ice elevation and pain medication. Has been using her ASO brace she is doing very well she has no complaints. Allergies: Allergies Allergen Reactions Amoxicillin Diarrhea Clindamycin Diarrhea Alendronate Hives and Rash Other Reaction(s): Redness of Skin Past Medical History: Past Medical History: Diagnosis Date Achilles tendon contracture right At risk for falls Disorder of right Achilles tendon GERD (gastroesophageal reflux disease) Hallux rigidus, right foot Hypertension (CMS/HCC) Obesity (BMI 30-39.9) OM (onychomycosis) Medications: Current Outpatient Medications: Calcium Carb-Cholecalciferol (CALCIUM + VITAMIN D3 PO), Calcium + Vitamin D3, Disp: , Rfl: Calcium Carb-Cholecalciferol (Calcium + Vitamin D3) 500-10 MG-MCG chewable tablet, Calcium + Vitamin D3, Disp: , Rfl: cholecalciferol (Vitamin D-3) 1.25 MG (29605 UT) capsule, Take 1,250 mcg by mouth, Disp: , Rfl: famotidine (Pepcid) 40 MG tablet, Take 40 mg by mouth, Disp: , Rfl: Glucosamine HCl (GLUCOSAMINE PO), Refills(s) 0, Disp: , Rfl: losartan (Cozaar) 25 MG tablet, 1 (one) time each day at the same time., Disp: , Rfl: Multiple Vitamin (MULTIVITAMIN ADULT PO), Multivitamin, Disp: , Rfl: omega-3 (FISH OIL) 300 MG capsule, Fish Oil, Disp: , Rfl: omeprazole (PriLOSEC) [address] capsule, Take 40 mg by mouth., Disp: , Rfl: tobramycin-dexAMETHasone (Tobradex) ophthalmic suspension, [...] < 3 seconds Digits 1-5 bilateral NEURO: [place] 5.07 monofilament was intact B/L. Vibratory sensation was intact B/L Musculoskeletal: Muscle strength was +5 over 5 all intrinsic and extrinsic muscles tested. NegativeHomans test noted Surgical site evaluation: The incision site is healing well without signs infection. Minimal swelling noted. Consistent with the patient's level of surgery consistent with time frame postoperatively.Excellent plantar flexor strength noted no pain along the course of the Achilles tendon much improved. Very happy with the outcome of her surgery ASSESSMENT 1. Achilles rupture, right, initial encounter 2. Right Achilles tendinitis PLAN Patient may utilize ASO brace when walking long distances. She no longer has to wear when she is home were driving her car she has made significant improvement postoperatively she will continue to follow up with IRISH Moreno documented in this encounterSaint Francis Medical [id number] History of Present illness Narrative* Frankie Vivar DPM - 12/03/2024 10:10 AM EST Patient: Sandee Dai : 1950 PCP: Bello [...] tendon repair and states positive improvement in past . Allergies: Allergies Allergen Reactions Amoxicillin Diarrhea Clindamycin Diarrhea Alendronate Hives and Rash Other Reaction(s): Redness of Skin Past Medical History: Past Medical History: Diagnosis Date Achilles tendon contracture right At risk for falls Disorder of right Achilles tendon GERD (gastroesophageal reflux disease) Hallux rigidus, right foot Hypertension (CMS/HCC) Obesity (BMI 30-39.9) OM (onychomycosis) Medications: Current Outpatient Medications: Calcium Carb-Cholecalciferol (CALCIUM + VITAMIN D3 PO), Calcium + Vitamin D3, Disp: , Rfl: Calcium Carb-Cholecalciferol (Calcium + Vitamin D3) 500-10 MG-MCG chewable tablet, Calcium + Vitamin D3, Disp: , Rfl: cholecalciferol (Vitamin D-3) 1.25 MG (51369 UT) capsule, Take 1,250 mcg by mouth, Disp: , Rfl: famotidine (Pepcid) 40 MG tablet, Take 40 mg by mouth, Disp: , Rfl: Glucosamine HCl (GLUCOSAMINE PO), Refills(s) 0, Disp: , Rfl: losartan (Cozaar) 25 MG tablet, 1 (one) time each day at the same time., Disp: , Rfl: Multiple Vitamin (MULTIVITAMIN ADULT PO), Multivitamin, Disp: , Rfl: omega-3 (FISH OIL) 300 MG capsule, Fish Oil, Disp: , Rfl: omeprazole (PriLOSEC) [address] capsule, Take 40 mg by mouth., Disp: , Rfl: tobramycin-dexAMETHasone (Tobradex) ophthalmic suspension, [...] 10 Frankie Vivar DPM documented in this encounterSaint Francis Medical [id number] History of Present illness Narrative* Bernie Pickens MA - 11/13/2024 9:00 AM ESTAssociated Order(s): L Inj/Asp: bilateral knee Post-Procedure Diagnose(s): Primary osteoarthritis of knees, bilateral L Inj/Asp: bilateral knee on 11/13/2024 9:07 AM Indications: pain Details: 25 G needle, anterolateral approach Medications (Right): 12 mg betamethasone acetate-betamethasone sodium phosphate 6 (3-3) MG/ML Medications (Left): 12 mg betamethasone acetate-betamethasone sodium phosphate 6 (3-3) MG/ML Procedure, treatment alternatives, risks and benefits explained, specific risks discussed. Consent was given by the patient. Immediately prior to procedure a time out was called to verify the correctpatient, procedure, equipment, ict customer support officer and site/side marked as required. Patient was prepped and draped in the usual sterile fashion. * DONAL Peck - 11/13/2024 9:00 AM EST Images from the original note were not included. Subjective Patient ID: Sandee Dai is a 74 y.o. female. Chief Complaint: Follow-up of the Left Knee and Follow-up of the Right Knee Last Surgery: No surgery found Last Surgery Date: No surgery found HPI Sandee comes in for cortisone both knees he had been doing fairly well and does get relief with the cortisone she denies any new injuries associated with her knee soreness today. Objective Ortho Exam Patient maintains about 5 degrees shy of full extension on the left and 3 degrees she will full extension on right with no excessive erythema or redness. No prepatellar rash noted. She has flexion ofabout 110 degrees bilaterally. Mediolateral collateral ligaments are stable patellofemoral crepitusnoted bilaterally Image Results: XR knee 3 views left Imaging Result: Bilateral standing PA, bilateral sunrise, and lateral of the affected knee were imaged today in the office. Patient has varus deformity of both knees with [id number] medial compartment as well as advancing patellofemoral osteoarthritis of both knees no evidence of bony tumor acute fracture seen. XR knee 3 views right Imaging Result: Bilateral standing PA, bilateral sunrise, and lateral of the affected knee were imaged today in the office. Patient has varus deformity of both knees with [id number] medial compartment as well as advancing patellofemoral osteoarthritis of both knees no evidence of bony tumor acute fracture seen. Assessment/Plan Encounter Diagnoses: Primary osteoarthritis of knees, bilateral Orders Placed This Encounter L Inj/Asp: bilateral knee XR knee 3 views right XR knee 3 views left Follow up if symptoms worsen or fail to improve. Would anticipate improvement with cortisone after 48 hours up to 1 week. May receive cortisone 3 times a year ideally every 4 months. Cold pack 20 minutes several times a day he will be helpful Tylenol for breakthrough discomfort. documented in this encounterSaint Francis Medical [id number] Instructions* Patient Instructions* DONAL Peck - 11/13/2024 9:00 AM EST Would anticipate improvement with cortisone after 48 hours up to 1 week. May receive cortisone 3 times a year ideally every 4 months. Cold pack 20 minutes several times a day he will be helpful Tylenol for breakthrough discomfort. documented in this encounterSaint Francis Medical [id number] History of Present illness Narrative* Danish Carballo DPM FACFAS - 10/28/2024 10:20 AM EST Images from the original note were not included. Patient: Sandee Dai : 1950 PCP: Bello Davis MD SUBJECTIVE This is a 74 y.o. female that presents today The patient is here status post Repair of the Achillestendon right procedure. Postop week 10 They deny fevers, chills, nausea, vomiting, calf pain and shortness of breath. Pain level is being managed with ice elevation and pain medication. She has been using a pneumatic walking boot Allergies: Allergies Allergen Reactions Alendronate [...] Disp: , Rfl: omeprazole (PriLOSEC) 40 MG capsule, Take 40 mg by mouth., Disp: , Rfl: Pediatric Multivitamins-Fl (MultiVitamin + Fluoride) 0.25 MG chewable tablet, Multivitamin, Disp: ,Rfl: tobramycin-dexAMETHasone (Tobradex) ophthalmic suspension, INSTILL 1 DROP [...] < 3 seconds Digits 1-5 bilateral NEURO: [place] 5.07 monofilament was intact B/L. Vibratory sensation was intact B/L Musculoskeletal: Muscle strength was +5 over 5 all intrinsic and extrinsic muscles tested. NegativeHomans test noted Surgical site evaluation: The incision site is healing well without signs infection. Minimal swelling noted. Consistent with the patient's level of surgery consistent with time frame postoperatively.Excellent plantar flexor strength noted no pain along the course of the Achilles tendon much improved ASSESSMENT 1. Achilles rupture, right, initial encounter PLAN Patient may continue with the ASO brace . I discussed a custom-molded brace we will plan fabricating a custom molded brace next visit she is progressing IRISH Davila documented in this encounterSaint [facility] Medical [id number] Hospital Discharge instructions Patient Education 10/21/2024 13:11:38 Hypertension, Adult Hypertension, Adult High blood pressure (hypertension) is when the force of blood pumping through the arteries is too strong. The arteries are the blood vessels that carry blood from the heart throughout the body. Hypertension forces the heart to work harder to pump blood and may cause arteries to become narrow or stiff. Untreated or uncontrolled hypertension can lead to a heart attack, heart failure, a stroke, kidney disease, and other problems. A blood pressure reading consists of a higher number over a lower number. Ideally, your blood pressure should be below 120/80. The first ( top ) number is called the systolic pressure. It is a measure of the pressure in your arteries as your heart beats. The second ( bottom ) number is called the diastolic pressure. It is a measure of the pressure in your arteries as the heart relaxes. What are the causes? The exact cause of this condition is not known. There are some conditions that result in high bloodpressure. What increases the risk? Certain factors may make you more likely to develop high blood pressure. Some of these risk factorsare under your control, including: Smoking. Not getting enough exercise or physical activity. Being overweight. Having too much fat, sugar, calories, or salt (sodium) in your diet. Drinking too much alcohol. Other risk factors include: Having a personal history of heart disease, diabetes, high cholesterol, or kidney disease. Stress. Having a family history of high blood pressure and high cholesterol. Having obstructive sleep apnea. Age. The risk increases with age. What are the signs or symptoms? High blood pressure may not cause symptoms. Very high blood pressure (hypertensive crisis) may cause: Headache. Fast or irregular heartbeats (palpitations). Shortness of breath. Nosebleed. Nausea and vomiting. Vision changes. Severe chest pain, dizziness, and seizures. How is this diagnosed? This condition is diagnosed by measuring your blood pressure while you are seated, with your arm resting on a flat surface, your legs uncrossed, and your feet flat on the floor. The cuff of the bloodpressure monitor will be placed directly against the skin of your upper arm at the level of your heart. Blood pressure should be measured at least twice using the same arm. Certain conditions can cause a difference in blood pressure between your right and left arms. If you have a high blood pressure reading during one visit or you have normal blood pressure with other risk factors, you may be asked to: Return on a different day to have your blood pressure checked again. Monitor your blood pressure at home for 1 week or longer. If you are diagnosed with hypertension, you may have other blood or imaging tests to help your health care provider understand your overall risk for other conditions. How is this treated? This condition is treated by making healthy lifestyle changes, such as eating healthy foods, exercising more, and reducing your alcohol intake. You may be referred for counseling on a healthy diet and physical activity. Your health care provider may prescribe medicine if lifestyle changes are not enough to get your blood pressure under control and if: Your systolic blood pressure is above 130. Your diastolic blood pressure is above 80. Your personal target blood pressure may vary depending on your medical conditions, your age, and other factors. Follow these instructions at home: Eating and drinking Eat a diet that is high in fiber and potassium, and low in sodium, added sugar, and fat. An exampleof this eating plan is called the DASH diet. DASH stands for Dietary Approaches to Stop Hypertension. To eat this way: ?Eat plenty of fresh fruits and vegetables. Try to fill one half of your plate at each meal with fruits and vegetables. ?Eat whole grains, such as whole-wheat pasta, brown rice, or whole-grain bread. Fill about one fourth of your plate with whole grains. ?Eat or drink low-fat dairy products, such as skim milk or low-fat yogurt. ?Avoid fatty cuts of meat, processed or cured meats, and poultry with skin. Fill about one fourth of your plate with lean proteins, such as fish, chicken without skin, beans, eggs, or tofu. ?Avoid pre-made and processed foods. These tend to be higher in sodium, added sugar, and fat. Reduce your daily sodium intake. Many people with hypertension should eat less than 1,500 mg of sodium a day. Do not drink alcohol if: ?Your health [...] glass of hard liquor (44 mL). Lifestyle Work with your health care provider to maintain a healthy body weight or to lose weight. Ask what an ideal weight is for you. Get at least 30 minutes of exercise that causes your heart to beat faster (aerobic exercise) most days of the week. Activities may include walking, swimming, or biking. Include exercise to strengthen your muscles (resistance exercise), such as Pilates or lifting weights, as part of your weekly exercise routine. Try to do these types of exercises for 30 minutes at least 3 days a week. Do not use any products that contain nicotine or tobacco. These products include cigarettes, chewing tobacco, and vaping devices, such as e-cigarettes. If you need help quitting, ask your health careprovider. Monitor your blood pressure at home as told by your health care provider. Keep all follow-up visits. This is important. Medicines Take [id number] and prescription medicines only as told by your health care provider. Follow directions carefully. Blood pressure medicines must be taken as prescribed. Do not skip doses of blood pressure medicine. Doing this puts you at risk for problems and can makethe medicine less effective. Ask your health care provider about side effects or reactions to medicines that you should watch for. Contact a health care provider if you: Think you are having a reaction to a medicine you are taking. Have headaches that keep coming back (recurring). Feel dizzy. Have swelling in your ankles. Have trouble with your vision. Get help right away if you: Develop a severe headache or confusion. Have unusual weakness or numbness. Feel faint. Have severe pain in your chest or abdomen. Vomit repeatedly. Have trouble breathing. These symptoms may be an emergency. Get help right away. Call 911. Do not wait to see if the symptoms will go away. Do not drive yourself to the hospital. Summary Hypertension is when the force of blood pumping through your arteries is too strong. If this condition is not controlled, it may put you at risk for serious complications. Your personal target blood pressure may vary depending on your medical conditions, your age, and other factors. For most people, a normal blood pressure is less than 120/80. Hypertension is treated with lifestyle changes, medicines, or a combination of both. Lifestyle changes include losing weight, eating a healthy, low-sodium diet, exercising more, and limiting alcohol. This information is not intended to replace advice given to you by your health care provider. Make sure you discuss any questions you have with your health care provider. Document Revised: 09/18/2022 Document Reviewed: 09/18/2022 [employer] Patient Education 2023 [employer]. 10/21/2024 13:11:37 Dyslipidemia Dyslipidemia Dyslipidemia is an imbalance of [...] for your lipid levels based onthis information. Treatment for dyslipidemia starts with lifestyle [...] you need help quitting, ask your health careprovider. Take fpix-qsr-[id number] and prescription medicines only as told by [...] with your health care provider. Document Revised: 06/14/2023 Document Reviewed: 01/15/2022 [employer] Patient Education 2023 [employer]. 10/21/2024 13:11:36 Blood Glucose Monitoring, Adult Blood Glucose Monitoring, Adult To manage your diabetes, you will need to keep track of your blood sugar (glucose). Check your blood glucose as often as told. Keep a record of your results over time. This can help you: Know when to adjust your diabetes management plan with your health care provider. See how food, exercise, illness, and medicines affect your blood glucose. Know what your blood glucose is at any time. Your provider will set specific goals for your blood glucose levels. In many cases, these goals maybe: Before meals (preprandial): 80 130 mg/dL (4.4 7.2 mmol/L). After meals (postprandial): below 180 mg/dL (10 mmol/L). A1C level: less than 7%. Supplies needed: Blood glucose meter. Test strips for your meter. Each meter has its own strips. You must use the strips that came with your meter. A needle to prick your finger (lancet). Do not use a lancet more than once. A device that holds the lancet (lancing device). A journal or logbook to write down your results. How to check your blood glucose Checking your blood glucose 1.Wash your hands with soap and water for at least 20 seconds. 2.Prick the side of your finger with the lancet. Do not prick the tip of your finger. Do not use the same finger more than once. 3.Gently rub the finger until a small drop of blood appears. 4.Follow the instructions that came with the meter about how to insert the test strip, apply blood to the strip, and use the meter. 5.Write down your result and any notes. Using alternative sites Some meters let you use other areas of your body (alternative sites) to test your blood. The most common places are the forearm, the thigh, and the palm of your hand. Alternative sites may not be as accurate as your fingers. The result you get may also be delayed. Use the finger only, and do not use alternative sites, if: You think you have low blood glucose (hypoglycemia). You sometimes do not know that your blood glucose is getting low (hypoglycemia unawareness). General tips and recommendations Blood glucose log Write down the result each time you check your blood glucose. Note anything that may be affecting your blood glucose. This can help you and your provider: ?Look for patterns over time. ?Adjust your management plan as needed. Check if your meter has an senia or lets you download your records to a computer. Most meters keep a record of glucose readings in the meter. If you have type 1 diabetes: You may need to check your blood glucose 4 or more times a day. Check your blood glucose as often as told by your provider. This may include: ?Before each meal and snack. ?Two hours after a meal. ?Before bedtime. ?If you have symptoms of hypoglycemia. ?After treating your hypoglycemia. ?Before doing things that have a risk of injury, such as driving or using machinery. ?Before and after exercise. ?Between 2:00 a.m. and 3:00 a.m., as told. You may need to check your blood glucose more often, such as up to 6 10 times a day, if: ?You have diabetes that is not well controlled. ?You are ill. ?You have a history of severe hypoglycemia. ?You have hypoglycemia unawareness. If you have type 2 diabetes: You may need to check your blood glucose 2 or more times a day. Check your blood glucose as often as told by your provider. This may include: ?Before and after exercise. ?Before doing things that have a risk of injury, such as driving or using machinery. You may need to check your blood glucose more often if: ?Your medicine is being adjusted. ?Your diabetes is not well controlled. ?You are ill. General tips Make sure you always have your supplies with you. After you use a few boxes of test strips, adjust (calibrate) your blood glucose meter. Follow the instructions that came with your meter. If you have questions or need help, all blood glucose meters have a 24-hour hotline phone number that you can call. Also contact your provider with any questions or concerns. Where to find more information [employer] [place]: diabetes.org The [employer] Education [employer]: diabeteseducator.org Contact a health care provider if: Your blood glucose is at or above 240 mg/dL (13.3 mmol/L) for 2 days in a row. You have been sick or have had a fever for 2 days or longer and are not getting better. You have any of these problems for more than 6 hours: ?You cannot eat or drink. ?You have nausea or vomiting. ?You have diarrhea. Get help right away if: Your blood glucose is lower than 54 mg/dL (3 mmol/L). You become confused, or you have trouble thinking clearly. You have trouble breathing. You have moderate to high ketone levels in your pee (urine). These symptoms may be an emergency. Get help right away. Call 911. Do not wait to see if the symptoms will go away. Do not drive yourself to the hospital. This information is not intended to replace advice given to you by your health care provider. Make sure you discuss any questions you have with your health care provider. Document Revised: 09/27/2023 Document Reviewed: 09/27/2023 [employer] Patient Education 2023 [employer]. Follow Up Care 04/08/2024 10:56:10 With:Ellen Carlos Address: [address], [address] [place] [address]- When:Within 6 Month(s) Comments:[facility] 11-27-2024 NotePatient Education Cardiovascular Hypertension, Adult High blood pressure (hypertension) is when the force of blood pumping through the arteries is too strong. The arteries are the blood vessels that carry blood from the heart throughout the body. Hypertension forces the heart to work harder to pump blood and may cause arteries to become narrow or stiff. Untreated or uncontrolled hypertension can lead to a heart attack, heart failure, a stroke, kidney disease, and other problems. A blood pressure reading consists of a higher number over a lower number. Ideally, your blood pressure should be below 120/80. The first ( top ) number is called the systolic pressure. It is a measure of the pressure in your arteries as your heart beats. The second ( bottom ) number is called the diastolic pressure. It is a measure of the pressure in your arteries as the heart relaxes. What are the causes? The exact cause of this condition is not known. There are some conditions that result in high bloodpressure. What increases the risk? Certain factors may make you more likely to develop high blood pressure. Some of these risk factorsare under your control, including: ??? Smoking. ??? Not getting enough exercise or physical activity. ??? Being overweight. ??? Having too much fat, sugar, calories, or salt (sodium) in your diet. ??? Drinking too much alcohol. Other risk factors include: ??? Having a personal history of heart disease, diabetes, high cholesterol, or kidney disease. ??? Stress. ??? Having a family history of high blood pressure and high cholesterol. ??? Having obstructive sleep apnea. ??? Age. The risk increases with age. What are the signs or symptoms? High blood pressure may not cause symptoms. Very high blood pressure (hypertensive crisis) may cause: ??? Headache. ??? Fast or irregular heartbeats (palpitations). ??? Shortness of breath. ??? Nosebleed. ??? Nausea and vomiting. ??? Vision changes. ??? Severe chest pain, dizziness, and seizures. How is this diagnosed? This condition is diagnosed by measuring your blood pressure while you are seated, with your arm resting on a flat surface, your legs uncrossed, and your feet flat on the floor. The cuff of the bloodpressure monitor will be placed directly against the skin of your upper arm at the level of your heart. Blood pressure should be measured at least twice using the same arm. Certain conditions can cause a difference in blood pressure between your right and left arms. If you have a high blood pressure reading during one visit or you have normal blood pressure with other risk factors, you may be asked to: ??? Return on a different day to have your blood pressure checked again. ??? Monitor your blood pressure at home for 1 week or longer. If you are diagnosed with hypertension, you may have other blood or imaging tests to help your health care provider understand your overall risk for other conditions. How is this treated? This condition is treated by making healthy lifestyle changes, such as eating healthy foods, exercising more, and reducing your alcohol intake. You may be referred for counseling on a healthy diet and physical activity. Your health care provider may prescribe medicine if lifestyle changes are not enough to get your blood pressure under control and if: ??? Your systolic blood pressure is above 130. ??? Your diastolic blood pressure is above 80. Your personal target blood pressure may vary depending on your medical conditions, your age, and other factors. Follow these instructions at home: Eating and drinking ??? Eat a diet that is high in fiber and potassium, and low in sodium, added sugar, and fat. An example of this eating plan is called the DASH diet. DASH stands for Dietary Approaches to Stop Hypertension. To eat this way: ? Eat plenty of fresh fruits and vegetables. Try to fill one half of your plate at each meal with fruits and vegetables. ? Eat whole grains, such as whole-wheat pasta, brown rice, or whole-grain bread. Fill about one fourth of your plate with whole grains. ? Eat or drink low-fat dairy products, such as skim milk or low-fat yogurt. ? Avoid fatty cuts of meat, processed or cured meats, and poultry with skin. Fill about one fourth of your plate with lean proteins, such as fish, chicken without skin, beans, eggs, or tofu. ? Avoid pre-made and processed foods. These tend to be higher in sodium, added sugar, and fat. ??? Reduce your daily sodium intake. Many people with hypertension should eat less than 1,500 mg ofsodium a day. ??? Do not drink alcohol if: ? Your health care provider tells you not to drink. ? You are , may be , or are planning to become . ??? If you drink alcohol: ? Limit how much you have to: ? 0?1 drink a day for women. ? 0?2 drinks a day for men. ? Know how much alcohol is in your drink. In the [place] one drink equals one 12 oz bottle (more content not included)...[facility]11-08-[facility]24 History of Present illness Narrative* Danish Carballo DPM FACFAS - 10/02/2024 10:30 AM EST Images from the original note were not included. Patient: Sandee Dai : 1950 PCP: Bello Davis MD SUBJECTIVE This is a 74 y.o. female that presents today The patient is here status post Repair of the Achillestendon right procedure. Postop week 5. They deny fevers, chills, nausea, vomiting, calf pain and shortness of breath. Pain level is being managed with ice elevation and pain medication. She has been using a pneumatic walking boot Allergies: Allergies Allergen Reactions Alendronate [...] Fluoride) 0.25 MG chewable tablet, Multivitamin, Disp: ,Rfl: tobramycin-dexAMETHasone (Tobradex) ophthalmic suspension, INSTILL 1 DROP [...] < 3 seconds Digits 1-5 bilateral NEURO: [place] 5.07 monofilament was intact B/L. Vibratory sensation was intact B/L Musculoskeletal: Muscle strength was +5 over 5 all intrinsic and extrinsic muscles tested. NegativeHomans test noted Surgical site evaluation: The incision site is healing well without signs infection. Minimal swelling noted. Consistent with the patient's level of surgery consistent with time frame postoperatively.Excellent plantar flexor strength noted no pain along the course of the Achilles tendon much improved ASSESSMENT 1. Achilles rupture, right, initial encounter PLAN Patient may transfer from the pneumatic walking boot into an ASO brace which was dispensed to her today. She may return to a regular shoe and follow up with me in 4 weeks for reassessment. She is progressing very well. ASO, Gauntlet Brace, Prefabricated, (L1902) was dispensed, fitted, and adjusted at this visit. The function of the device is to provide support, decrease edema, control motion at the ankle, and subtalar joints. It will redistribute pressure and allow more comfortable weight-bearing and better support. It is for increased stability of the ankle joint and subtalar joint. The device is medically necessary for the condition, symptoms and diagnosis. The patient was educated as to proper use and care, and this was reviewed in detail. Written instructions and warranty information were given with the device. The current supplier standards were given to the patient. IRISH Davila documented in this encounterSaint Francis Medical [id number] History of Present illness Narrative* Frankie Vivar DPM - 09/24/2024 9:50 AM EDT Patient: Sandee Dai : 1950 PCP: Bello [...] Fluoride) 0.25 MG chewable tablet, Multivitamin, Disp: ,Rfl: tobramycin-dexAMETHasone (Tobradex) ophthalmic suspension, INSTILL 1 DROP [...] walking boot follow up with Dr. Brenna Vivar DPM documented in this encounterSaint Francis Medical [id number] History of Present illness Narrative* Danish Carballo DPM FACFAS - 09/16/2024 10:00 AM EDT Images from the original note were not included. Patient: Sandee Dai : 1950 PCP: Bello Davis MD SUBJECTIVE This is a 74 y.o. female that presents today The patient is here status post Repair of the Achillestendon right procedure. Postop week 3. They deny [...] Fluoride) 0.25 MG chewable tablet, Multivitamin, Disp: ,Rfl: tobramycin-dexAMETHasone (Tobradex) ophthalmic suspension, INSTILL 1 DROP [...] < 3 seconds Digits 1-5 bilateral NEURO: [place] 5.07 monofilament was intact B/L. Vibratory sensation was intact B/L Musculoskeletal: Muscle strength was +5 over 5 all intrinsic and extrinsic muscles tested. NegativeHomans test noted Surgical site evaluation: The incision [...] for reassessment IRISH Davila documented in this encounterSaint Francis Medical [id number] History of Present illness Narrative* IRISH Davila - 09/09/2024 10:10 AM EDT Images from the original note were not [...] this for 10 days. Take 1 pill p.o.b.I.d. for 10 days., Disp: 20 tablet, Rfl: [...] by mouth in the morning and 1 capsule(300 mg) in the evening and 1 capsule (300 mg) before bedtime. Do all this for 10 days. TAKE 1 PILLP.O. T.I.D. FOR 10 DAYS., Disp: 30 capsule, [...] Fluoride) 0.25 MG chewable tablet, Multivitamin, Disp: ,Rfl: tobramycin-dexAMETHasone (Tobradex) ophthalmic suspension, INSTILL 1 DROP [...] < 3 seconds Digits 1-5 bilateral NEURO: [place] 5.07 monofilament was intact B/L. Vibratory sensation was intact B/L Musculoskeletal: Muscle strength was +5 over 5 all intrinsic and extrinsic muscles tested. NegativeHomans test noted Surgical site evaluation: The incision site is healing well without signs infection. Minimal swelling noted. Consistent with the patient's level of surgery consistent with time frame postoperatively.Sutures remain intact without signs of dehiscence. ASSESSMENT 1. Achilles rupture, right, initial encounter 2. Right Achilles tendinitis PLAN Stures removed today patient has been noncompliant with the weight-bearing status wishes to continue to ambulate she wishes to utilize a pneumatic walking boot she has a very old 1 is worn out from 5years ago she will require a new 1 today. I applied a dry sterile dressing with a [place] compressivetype dressing to the incision site with Steri-Strips recommended she start partial weight- bearing in a pneumatic walking boot. The patient was dispensed 1 pneumatic walking boot (L4361). The pneumatic device was necessary to provide immobilization in compression during the healing process. The foamliner will in straps were adjusted to ensure proper fit. There were educated on the use of the device. IRISH Davila documented in this [facility]10-11-2024 Telephone encounter Note* Telephone Encounter - Nita Godinez RN - 09/04/2024 8:02 AM EDT Patient said that the Augmentin is causing nausea/diarrhea. She asked if there was something else you could send in or if you wanted her to stop the medication. [facility] [id number] Miscellaneous Notes* Telephone Encounter - Nita Godinez RN - 09/04/2024 8:02 AM EDT Patient said that the Augmentin is causing nausea/diarrhea. She asked if there was something else you could send in or if you wanted her to stop the medication. documented in this [facility]10-08-2024 History of Present illness Narrative* IRISH Davila - 09/01/2024 11:00 AM EDT Images from the original note were not [...] this for 10 days. Take 1 pill p.o.b.I.d. for 10 days., Disp: 20 tablet, Rfl: [...] Fluoride) 0.25 MG chewable tablet, Multivitamin, Disp: ,Rfl: tobramycin-dexAMETHasone (Tobradex) ophthalmic suspension, INSTILL 1 DROP [...] < 3 seconds Digits 1-5 bilateral NEURO: [place] 5.07 monofilament was intact B/L. Vibratory sensation was intact B/L Musculoskeletal: Muscle strength was +5 over 5 all intrinsic and extrinsic muscles tested. NegativeHomans test noted Surgical site evaluation: The incision site is healing well without signs infection. Minimal swelling noted. Consistent with the patient's level of surgery consistent with time frame postoperatively.Sutures remain intact without signs of dehiscence. ASSESSMENT [...] 1 week IRISH Davila documented in this encounterSaint [facility] [id number] Telephone encounter Note* Telephone Encounter - IRISH Davila - 08/27/2024 11:22 AM EDT rxsx [facility] [id number] Miscellaneous Notes* Telephone Encounter - IRISH Davila - 08/27/2024 11:22 AM EDT rxsx documented in this encounterSaint Francis Medical [id number] NotePatient Education Nutrition BMI for Adults Body mass [...] BMI calculators are available to help you findyour BMI quickly and easily without doing these [...] meters squared number. In this example: 70 ?3.1 = 22.6. This is your BMI. What [...] such as an athlete, may have a BMIthat is higher than 24.9. In cases like these, BMI is not a correct measure of body fat. ? If you have a BMI of 25 or higher, your provider may need to do more testing to find out if excess body fat is the cause. ? BMI is measured the same way for males and females. Females usually have more body fat than malesof the same height and weight. Where to find more information For more information about BMI, including tools to quickly find your BMI, go to: ? Centers for Disease Control and Prevention: cdc.gov ? [place] Heart Association: heart.org ? National Heart, Lung, and Blood [place]: nhlbi.nih.gov This information is not intended to replace advice given to you by your health care provider. Make sure you discuss any questions you have with your health care provider. Document Revised: 08/01/2023 Document Reviewed: 07/25/2023 [employer] Patient Education ? 2023 [employer].[facility] 08-19-2024 History of Present illness Narrative* Danish Carballo DPM FACFAS - 08/19/2024 10:10 AM EDT Patient: Sandee Dai : 1950 PCP: Bello Davis MD SUBJECTIVE Patient presents today for follow up of right Achilles partial tear. Pt states current pain on a 1-10 scale is a 5 /10 and has been taking NSAIDs and been in a walking boot for the past 8 weeks with some improvement. Patient states she has been removing boot periodically in the past against medicaladvice in the past and states she has been wearing the boot continuously currently for about 95 percent of the time in the boot. She was referred to me for consultation for repair of her rupture of the Achilles tendon. She underwent an MRI which revealed: Partial tear of the Achilles tendon right Clinisync Result Encounter on 08/14/2024 Component Date Value Ref Range Status [facility] WBC 08/14/2024 8.7 4.0 - 11.0 10 3/uL Final [facility] RBC 08/14/2024 4.51 4.20 - 5.40 10 6/uL Final [facility] HGB 08/14/2024 12.7 12.0 - 16.0 g/dL Final [facility] HCT 08/14/2024 39.1 36.0 - 48.0 % Final [facility] MCV 08/14/2024 86.7 81.0 - 99.0 fL Final [facility] MCH 08/14/2024 28.2 26.7 - 34.0 pg Final [facility] MCHC 08/14/2024 32.5 29.9 - 35.2 g/dL Final [facility] RDW 08/14/2024 13.9 11.0 - 15.0 % Final [facility] PLT 08/14/2024 229 150 - 450 10 3/uL Final [facility] MPV 08/14/2024 10.3 9.5 - 13.5 fL Final NEUTROPHILS PERCENT AUTO 08/14/2024 72.1 43.0 - 75.0 % Final LYMPHOCYTES PERCENT AUTO 08/14/2024 16.5 (L) 20.5 - 60.0 % Final MONOCYTES PERCENT AUTO 08/14/2024 6.7 1.7 - 12.0 % Final [facility] EO % 08/14/2024 3.4 0.9 - 7.0 % Final BASOPHILS PERCENT AUTO 08/14/2024 0.8 0.2 - 2.0 % Final IMMATURE GRANULOCYTES PCT AUTO 08/14/2024 0.5 0.0 - 0.5 % Final NEUTROPHILS ABSOLUTE AUTO 08/14/2024 6.3 1.4 - 6.5 10 3/uL Final LYMPHOCYTES ABSOLUTE AUTO 08/14/2024 1.4 1.2 - 3.8 10 3/uL Final MONOCYTES ABSOLUTE AUTO 08/14/2024 0.6 0.3 - 0.8 10 3/uL Final TB[facility] EO # 08/14/2024 0.3 0.0 - 0.7 10 3/uL Final BASOPHILS ABSOLUTE AUTO 08/14/2024 0.1 0.0 - 0.1 10 3/uL Final IMMATURE GRANULOCYTES ABS AUTO 08/14/2024 0.04 (H) 0.00 - 0.03 10 3/uL Final SODIUM 08/14/2024 141 136 - 145 mmol/L Final POTASSIUM 08/14/2024 4.2 3.5 - 5.1 mmol/L Final CHLORIDE 08/14/2024 107 98 - 107 mmol/L Final CARBON DIOXIDE 08/14/2024 27.6 21.0 - 32.0 mmol/L Final ANION GAP 08/14/2024 10.6 Final GLUCOSE 08/14/2024 123 (H) 74 - 106 mg/dL Final BLOOD UREA NITROGEN 08/14/2024 14.0 7.0 - 18.0 mg/dL Final CREATININE 08/14/2024 0.86 0.55 - 1.02 mg/dL Final TB[facility] EGFR-AF QATARI 08/14/2024 >60 >=60 Final TBH EGFR-NON AF QATARI 08/14/2024 >60 >=60 Final BUN CREATININE RATIO 08/14/2024 16.3 Final CALCIUM 08/14/2024 8.7 8.5 - 10.1 mg/dL Final Allergies: Allergies Allergen Reactions Alendronate Hives and [...] Fluoride) 0.25 MG chewable tablet, Multivitamin, Disp: ,Rfl: tobramycin-dexAMETHasone (Tobradex) ophthalmic suspension, INSTILL 1 DROP [...] Social History Narrative Not on file Social Determinants of Health Financial Resource Strain: Not on [...] on palpation to nails 1 through 10 Positive pain on palpation of right Achilles tendon and retrocalcaneal bursa with negative palpableDell. Slight protuberance noted to posterior Achilles in the watershed area right MRI: MRI right foot [facility] report of fusiform thickening and intermediate signal of the Achilles tendon consistent with tendinosis small low- grade partial-thickness intrasubstance tearing spanning 2.5 cm in a cranial caudal dimension complete rupture not identified. Report of high-grade Achilles tendinosis with low-grade intrasubstance partial tearing of the mid tendon. No high-grade or complete tear identified. ASSESSMENT 1. Achilles rupture, right, initial encounter PLAN I educated the patient on repair with debulking of the Achilles tendon / synovectomy. I educated the patient on the MRI findings. Patient has failed conservative care wishes for surgical intervention. Plan to perform a tubularization procedure with the bulking of the Achilles tendon right. The patient was educated on the pre, pradip, postoperative course of the procedure in great detail. We discussed further conservative therapies which the patient has attempted and has failed. I discussed the surgical procedure in great detail including the risks and possible complications. We discussed the following complications in great detail including but not limited to: Pain, infection, prolonged swelling, numbness, tingling, burning, nonhealing wound, nonunion, malunion, chronic pain, development ofcomplex regional pain syndrome, development of deep venous thrombosis. Patient fully understood allpossible risks and complications. All questions have been asked and answered. They have consented for the above-stated procedure. IRISH Davila documented in this encounterSaint Francis Medical [id number] History of Present illness Narrative* IRISH Davila - 07/24/2024 8:20 AM EDT Patient: Sandee Dai : 1950 PCP: Bello Davis MD SUBJECTIVE Patient presents today for follow up of right Achilles partial tear. Pt states current pain on a 1-10 scale is a 5 /10 and has been taking NSAIDs and been in a walking boot for the past 8 weeks with some improvement. Patient states she has been removing boot periodically in the past against medicaladvice in the past and states she has been wearing the boot continuously currently for about 95 percent of the time in the boot. She was referred to me for consultation for repair of her rupture of the Achilles tendon. She underwent an MRI which revealed: Partial tear of the Achilles tendon right Allergies: Allergies Allergen Reactions Alendronate Hives and [...] Fluoride) 0.25 MG chewable tablet, Multivitamin, Disp: ,Rfl: tobramycin-dexAMETHasone (Tobradex) ophthalmic suspension, INSTILL 1 DROP [...] Social History Narrative Not on file Social Determinants of Health Financial Resource Strain: Not on [...] on palpation to nails 1 through 10 Positive pain on palpation of right Achilles tendon and retrocalcaneal bursa with negative palpableDell. Slight protuberance noted to posterior Achilles in the watershed area right MRI: MRI right foot [facility] report of fusiform thickening and intermediate signal of the Achilles tendon consistent with tendinosis small low- grade partial-thickness intrasubstance tearing spanning 2.5 cm in a cranial caudal dimension complete rupture not identified. Report of high-grade Achilles tendinosis with low-grade intrasubstance partial tearing of the mid tendon. No high-grade or complete tear identified. ASSESSMENT 1. Achilles rupture, right, initial encounter PLAN I educated the patient on repair with debulking of the Achilles tendon / synovectomy. I educated the patient on the MRI findings. Patient has failed conservative care wishes for surgical intervention. Plan to perform a tubularization procedure with the bulking of the Achilles tendon right. The patient was educated on the pre, pradip, postoperative course of the procedure in great detail. We discussed further conservative therapies which the patient has attempted and has failed. I discussed the surgical procedure in great detail including the risks and possible complications. We discussed the following complications in great detail including but not limited to: Pain, infection, prolonged swelling, numbness, tingling, burning, nonhealing wound, nonunion, malunion, chronic pain, development ofcomplex regional pain syndrome, development of deep venous thrombosis. Patient fully understood allpossible risks and complications. All questions have been asked and answered. They have consented for the above-stated procedure. Danish Carballo DPM FACFAS documented in this encounterSaint Francis Medical [id number] History of Present illness Narrative* Frankie Vivar DPM - 07/16/2024 9:30 AM EDT Patient: Sandee Dai : 1950 PCP: Bello Davis MD SUBJECTIVE Patient presents today for follow up of right Achilles partial tear. Pt states current pain on a 1-10 scale is a 5 /10 and has been taking NSAIDs and been in a walking boot for the past 8 weeks with some improvement. Patient states she has been removing boot periodically in the past against medicaladvice in the past and states she has been wearing the boot continuously currently for about 95 percent of the time in the boot Allergies: Allergies Allergen Reactions Alendronate Hives [...] Fluoride) 0.25 MG chewable tablet, Multivitamin, Disp: ,Rfl: tobramycin-dexAMETHasone (Tobradex) ophthalmic suspension, INSTILL 1 DROP [...] Social History Narrative Not on file Social Determinants of Health Financial Resource Strain: Not on [...] on palpation to nails 1 through 10 Positive pain on palpation of right Achilles tendon and retrocalcaneal bursa with negative palpableDell. Slight protuberance noted to posterior Achilles in the watershed area right MRI: MRI right foot [facility] report of fusiform thickening and intermediate signal of the Achilles tendon consistent with tendinosis small low- grade partial-thickness intrasubstance tearing spanning 2.5 cm in a cranial caudal dimension complete rupture not identified. Report of high-grade Achilles tendinosis with low-grade intrasubstance partial tearing of the mid tendon. No high-grade or complete tear identified. ASSESSMENT 1. Achilles rupture, right, initial encounter 2. Venous insufficiency 3. Right Achilles tendinitis PLAN Patient to continue with oral anti - inflammatories as needed for pain and recommended OTC medications such as tylenol or Ibuprofen Will have consultation José Miguel for possible surgical consultation for Achilles pathology. Patient currently in walking boot and would like to have information concerning possible surgical correction and possible postoperative timeframe Frankie Vivar DPM documented in this encounterSaint Francis Medical [id number] Hospital Discharge instructions Patient Education 03/18/2024 12:27:56 [...] high risk for HIV. Your health care providermay recommend a prescription medicine to help prevent HIV infection. If you choose to take medicineto prevent HIV, you should first get tested [...] minerals and strength with aging. This can resultin bone fractures. If you are 65 years [...] you need help quitting, ask your health careprovider. Do not use street drugs. Do not [...] provider. Document Revised: 04/02/2022 Document Reviewed: 04/02/2022 [employer] Patient Education 2022 [employer]. 03/18/2024 12:27:54 Health Maintenance After Age 65 [...] have a fall. Your health care provider mayrecommend: Regular vision checks. Poor vision and conditions such as cataracts can make you more likely to have a fall. If you wear glasses, make sure to get your prescription updated if your vision changes. Medicine review. Work with your health care provider to regularly review all of the medicines you are taking, including clth-yqg-ezcdthl medicines. Ask your health care provider about any side effects that may make you more likely to have a fall. Tell your health care provider if any medicines thatyou take make you feel dizzy or sleepy. Strength and balance checks. Your health care provider may recommend certain tests to check your strength and balance while standing, walking, or changing positions. Foot health exam. Foot pain and numbness, as well as not wearing proper footwear, can make you morelikely to have a fall. Screenings, including: ?Osteoporosis [...] your balance and may make you more likelyto have a fall. Follow these instructions at [...] you need help quitting, ask your health careprovider. Activity Follow a regular exercise program to [...] feel dizzy, tiredness (fatigue), or off-balance. Take xnxo-nrq-wiryorw and prescription medicines only as told by your health care provider. These include supplements. Eat a healthy diet and maintain a healthy weight. A healthy diet includes low- fat dairy products, low-fat (lean) meats, and fiber from whole grains, beans, and lots of fruits and vegetables. Stay current with your vaccines. Schedule regular health, dental, and eye exams. Summary Having a healthy lifestyle and getting preventive care can help to protect your health and wellnessafter age 65. Screening and testing are the best way to find a health problem early and help you avoid having a fall. Early diagnosis and treatment give you the best chance for managing medical conditions that aremore common for people who are older than age 65. Falls are a major cause of broken bones and head injuries in people who are older than age 65. Takeprecautions to prevent a fall at home. Work [...] provider. Document Revised: 04/02/2022 Document Reviewed: 04/02/2022 [employer] Patient Education 2022 [employer]. 03/18/2024 12:27:52 Dyslipidemia Dyslipidemia Dyslipidemia is an [...] for your lipid levels based onthis information. Treatment for dyslipidemia starts with lifestyle [...] you need help quitting, ask your health careprovider. Take ikzq-ugi-zgyklct and prescription medicines only as told by [...] provider. Document Revised: 01/15/2022 Document Reviewed: 01/15/2022 [employer] Patient Education 2022 [employer]. 03/18/2024 12:27:51 Diabetes Mellitus and Nutrition, Adult [...] level more than any other type of food.Eating carbs raises the amount of glucose in [...] (hypoglycemia), especially if you use insulin or takecertain diabetes medicines by mouth. Hypoglycemia can be [...] in one serving. Choose foods that have alow amount or none of these fats. Check the number of milligrams (mg) of salt (sodium) in one serving. Most people should limit totalsodium intake to less than 2,300 mg per [...] times every day. Avoid going long periods oftime without eating. Eat foods that are high [...] kale, chard, adama greens, mustard greens, and cabbage.Beets. Cauliflower. Broccoli. Carrots. Green beans. Tomatoes. Peppers. Onions. Cucumbers. [place] sprouts. Grains Whole grains, such as whole-wheat [...] meet with a certified diabetes care and sld educational aide? Do I need to meet with a dietitian? What number can I call if I have questions? When are the best times to check my blood glucose? Where to find more information: [place] Diabetes Association: diabetes.org Academy of Nutrition and Dietetics: eatright.org National [place] of Diabetes and Digestive and Kidney Diseases: niddk.nih.gov Association of Diabetes Care & Education Specialists: diabeteseducator.org Summary It is important to have healthy eating habits because your blood sugar (glucose) levels are greatlyaffected by what you eat and drink. It [...] provider. Document Revised: 06/14/2021 Document Reviewed: 06/14/2021 [employer] Patient Education 2022 [employer]. 03/18/2024 12:27:50 DASH Eating Plan DASH Eating [...] methods such as baking, boiling, grilling, roasting, andbroiling instead. Cook with heart-healthy oils, such as [...] steamed, roasted, or grilled). Low-sodium or reduced-sodium tomatoand vegetable juice. Low-sodium or reduced-sodium tomato sauce and tomato paste. Low-sodium or reduced-sodium canned vegetables. Grains Whole-grain or whole-wheat bread. Whole-grain or whole-wheat pasta. Brown rice. Oatmeal. Quinoa. Bulgur. Whole-grain and low-sodium cereals. Tracey bread. Low- fat, low-sodium crackers. Whole-wheat flour tortillas. Meats and [...] milk. Reduced-fat, low-fat, or fat-free cheeses. Nonfat, low-sodiumricotta or cottage cheese. Low-fat or nonfat yogurt. [...] Fatty cuts of meat. Ribs. Fried meat. [place]. Bologna, salami, and other precooked or cured meats, such as sausages or meat loaves. Fat from the back of a pig (fatback). Bratwurst. Salted nuts and seeds. Canned beans with added salt. Canned or smoked fish. Whole eggs or egg yolks. Chicken or turkey with skin. Dairy Whole or 2% milk, cream, and mnaj-cng-doue. Whole or full-fat cream cheese. Whole-fat or sweetened yogurt. Full-fat cheese. Nondairy creamers. Whipped toppings. Processed cheese and cheese spreads. Fats and oils Butter. Stick margarine. Lard. Shortening. Ghee. [place] fat. Tropical oils, such as coconut, palm [...] more information National Heart, Lung, and Blood [place]: www.nhlbi.nih.gov [place] Heart Association: www.heart.org Academy of Nutrition and [...] provider. Document Revised: 10/14/2020 Document Reviewed: 10/14/2020 [employer] Patient Education 2022 [employer]. 03/18/2024 12:27:49 Blood Glucose Monitoring, Adult Blood Glucose Monitoring, Adult Monitoring your blood sugar (glucose) is an important part of managing your diabetes. Blood glucosemonitoring involves checking your blood glucose as often as directed and keeping a log or record ofyour results over time. Checking your blood glucose [...] quickly find out if you have low bloodglucose (hypoglycemia) or high blood glucose (hyperglycemia). Your health care provider will set individualized treatment goals for you. Your goals will be basedon your age, other medical conditions you have, [...] inserting the test strip, applying blood to thestrip, and using your blood glucose meter. 5.Write [...] or if there is an senia for [employer]. Most glucose meters store a record of [...] care provider with questions or concerns you mayhave. Where to find more information The [place] Diabetes Association: www.diabetes.org The Association of Diabetes [...] goals for you. Your goals will be basedon your age, other medical conditions you have, [...] provider. Document Revised: 08/09/2021 Document Reviewed: 08/09/2021 [employer] Patient Education 2022 [employer]. Follow Up Care 03/27/2023 08:59:37 With:Ellen Carlos Address: [address], [address] [place] [address]- When:Within 6 Month(s) Comments:[facility] 03-06-2024 Hospital Discharge instructions Patient Education 01/29/2024 09:22:42 [...] to insulin that the body makes. This cancause excess glucose to build up in the [...] eating lean proteins, whole grains, legumes, fresh fruitsand vegetables, low-fat dairy products, and healthy fats. [...] hard liquor (44 mL). General instructions Take bglz-pqs-knudgvo and prescription medicines only as told by your health care provider. You maybe prescribed medicines that help lower the risk of type 2 diabetes. Do not use any products that contain nicotine or tobacco, such as cigarettes, e- cigarettes, and chewing tobacco. If you need help quitting, ask your health care provider. Keep all follow-up visits. This is important. Where to find more information [place] Diabetes Association: www.diabetes.org Academy of Nutrition and Dietetics: www.eatright.org [place] Heart Association: www.heart.org Contact a health care provider if: You have any of these symptoms: ?Increased hunger. ?Increased urination. ?Increased thirst. ?Fatigue. ?Vision changes, such as blurry vision. Get help right away if you: Have shortness of breath. Feel confused. Vomit or feel like you may vomit. Summary Prediabetes is when your blood sugar (blood glucose)level is higher than normal but not high enoughfor you to be diagnosed with type 2 [...] provider. Document Revised: 02/09/2021 Document Reviewed: 02/09/2021 [employer] Patient Education 2022 [employer]. 01/29/2024 09:22:38 Exercising to Lose Weight Exercising to Lose Weight Getting regular exercise is important for everyone. It is especially important if you are overweight. Being overweight increases your risk of heart disease, stroke, diabetes, high blood pressure, andseveral types of cancer. Exercising, and reducing the [...] of moderate-intensity exercise a week to maintain theirbody weight. Vigorous-intensity exercise Vigorous-intensity exercise is any [...] you need and what types of activities aresafe for you. Nutrition Make changes to your diet as told by your health care provider or diet and cam specialist (dietitian). This may include: ?Eating fewer calories. ?Eating more protein. ?Eating less unhealthy fats. ?Eating a diet that includes fresh fruits and vegetables, whole grains, low-fat dairy products, andlean protein. ?Avoiding foods with added fat, salt, [...] provider. Document Revised: 01/07/2022 Document Reviewed: 01/07/2022 [employer] Patient Education 2022 [employer]. 01/29/2024 09:22:35 Cooking With Less Salt Cooking With Less Salt Cooking with less salt is one way to reduce the amount of sodium you get from food. Sodium is one of the elements that make up salt. It is found naturally in foods and is also added to certain foods.Depending on your condition and overall health, your [...] salt. Use sodium-free baking soda when baking. [employer], braise, or roast foods to add flavor with less salt. Avoid adding salt to pasta, rice, or hot cereals. Drain and rinse canned vegetables, beans, and meat before use. Avoid adding salt when cooking sweets and desserts. Cook with low-sodium ingredients. What foods are high in sodium? Vegetables Regular canned vegetables (not low-sodium or reduced-sodium). Sauerkraut, pickled vegetables, and relishes. Olives. Latvian fries. Onion rings. Regular canned tomato sauce [...] smoked, cured, spiced, or pickled. This includes osborne, ham, sausages, hot dogs, corned beef, chipped beef, meat loaves, salt pork, jerky, pickled escalona, anchovies, regular canned tuna, and sardines. Salted nuts. Dairy Processed cheese and cheese spreads. Cheese curds. Blue cheese. Feta cheese. String cheese. Regularcottage cheese. Buttermilk. Canned milk. The items listed above may not be a complete list of foods high in sodium. Actual amounts of sodiummay be different depending on processing. Contact a [...] Soy milk. Yogurt. Low-sodium cheeses, such as Slovenian, [place] Efrem, mozzarella, and ricotta. Sherbet or ice cream (keep to cup per serving). Cream cheese. Fats and oils Unsalted butter or margarine. Other foods Homemade pudding. Sodium-free baking soda and baking powder. Herbs and spices. Low-sodium seasoningmixes. Beverages Coffee and tea. Carbonated beverages. The [...] foods you can pair it with. Herbs Vance leaves Soups, meat and vegetable dishes, and spaghetti sauce. Basil Mosotho dishes, soups, pasta, and fish dishes. Cilantro Meat, poultry, and vegetable dishes. [place] powder Marinades and Syrian dishes. Chives Salad dressings and potato dishes. Cumin Syrian dishes, couscous, and meat dishes. Dill Fish dishes, sauces, and salads. Fennel Meat and vegetable dishes, breads, and cookies. Garlic (do not use garlic salt) Mosotho dishes, meat dishes, salad dressings, and sauces. Marjoram Soups, potato dishes, and meat dishes. Oregano Pizza and spaghetti sauce. Parsley Salads, soups, pasta, and meat dishes. Kari Mosotho dishes, salad dressings, soups, and red meats. [...] provider. Document Revised: 11/02/2020 Document Reviewed: 11/02/2020 [employer] Patient Education 2022 [employer] 01/29/2024 09:22:34 BMI for Adults BMI for Adults What is BMI? Body mass index (BMI) is a number that is calculated from a person's weight and height. BMI can help estimate how much of a person's weight is composed of fat. BMI does not measure body fat directly.Rather, it is an alternative to procedures that [...] your height. Both height and weight are measured,and the BMI is calculated from those numbers. This can be done either in [place] ([place] or metric measurements. Note that charts and online BMI calculators are available to help you find your BMI quickly and easily without having to do these calculations yourself. To calculate your BMI in [place]anese ([place] measurements: 1.Measure your weight in pounds [...] inches squared measurement is 70 inches x 70inches, which equals 4,900 inches squared. 4.Divide the [...] Centers for Disease Control and Prevention: www.cdc.gov [place] Heart Association: www.heart.org National Heart, Lung, and Blood Wagoner: www.nhlbi.nih.gov Summary Body mass index (BMI) is a number that is calculated from a person's weight and height. BMI may help estimate how much of a person's weight is composed of fat. BMI can help identify thosewho may be at higher risk for certain medical problems. BMI can be measured using Bhutanese measurements or metric measurements. BMI charts are used to identify whether you are underweight, normal weight, overweight, or obese. This information is not intended to replace advice given to you by your health care provider. Make sure you discuss any questions you have with your health care provider. Document Revised: 08/03/2020 Document Reviewed: 06/10/2020 [employer] Patient Education 2022 [employer]. [facility] 02-02-2024 History of Present illness Narrative* Harper Flores - 12/27/2023 8:30 AM ESTAssociated Order(s): L Inj/Asp: bilateral knee Post-Procedure Diagnose(s): Primary osteoarthritis of knees, bilateral L Inj/Asp: bilateral knee on 12/27/2023 9:02 AM Indications: pain Details: 25 G needle Medications (Right): 12 mg betamethasone acetate-betamethasone sodium phosphate 6 (3-3) MG/ML Medications (Left): 12 mg betamethasone acetate-betamethasone sodium phosphate 6 (3-3) MG/ML Consent was given by the patient. * DONAL Peck - 12/27/2023 8:30 AM EST GENERAL HISTORY AND PHYSICAL: NAME: Sandee Dai [...] D3) 500-10 MG-MCG chewable tablet Calcium + VitaminD3 famotidine (PEPCID) 40 mg, Oral Glucosamine 500 [...] the office. Patient has bilateral medial compartments zpse-we-djqe as well as patellofemoral disease no evidence of acute fracture or bony tumor seen. XR knee 1 or 2 views left Bilateral standing PA, bilateral sunrise, and lateral of the affected knee were imaged today in the office. Patient has bilateral medial compartments sbrw-ym-bkve as well as patellofemoral disease no evidence of acute fracture or bony tumor seen. ASSESSMENT: Primary osteoarthritis of knees, bilateral PLAN: Would expect 48 hours up to 1 week for improvement after getting cortisone injections in both kneestoday. May repeat injections as soon as 4 weeks but can only receive it 2 more times in each knee for the next 12 months. May consider injections with Dr. Vivar of hyaluronic acid as a 2nd line of treatment options prior to considering total knee arthroplasty. Cold pack to both knees for 20 minutesseveral times a day may be helpful. May consider using a cane for stability when ambulating distances. Call for any concerns. Tylenol for discomfort. DONAL Peck documented in this [facility]02-02-2024 Instructions* Patient Instructions* DONAL Peck - 12/27/2023 8:30 AM EST Would expect 48 hours up to 1 week for improvement after getting cortisone injections in both kneestoday. May repeat injections as soon as 4 weeks but can only receive it 2 more times in each knee for the next 12 months. May consider injections with Dr. Vivar of hyaluronic acid as a 2nd line of treatment options prior to considering total knee arthroplasty. Cold pack to both knees for 20 minutesseveral times a day may be helpful. May consider using a cane for stability when ambulating distances. Call for any concerns. Tylenol for discomfort. documented in this [facility]12-30-2023 Hospital Discharge instructions Patient Education 11/23/2023 14:46:55 Heartburn Heartburn Heartburn is a type of pain or discomfort that can happen in the throat or chest. It is often described as a burning pain. It may also cause a bad, acid- like taste in the mouth. Heartburn may feel [...] powder, vinegar, hot sauces, and barbecue sauce. ?[place] fruit juices and citrus fruits, such as oranges, crystal, and limes. ?Tomato-based foods, such as red sauce, chili, salsa, and pizza with red sauce. ?Fried and fatty foods, such as donuts, maltese fries, potato chips, and high-fat dressings. ?High-fat meats, such as hot dogs and fatty cuts of red and white meats, such as rib eye steak, sausage, ham, and osborne. ?High-fat dairy items, such as whole milk, [...] can make symptoms worse. If you need helpquitting, ask your health care provider. Wear loose-fitting [...] ask your health care provider. Medicines Take zljh-czr-ytidfax and prescription medicines only as told by [...] pain. It may also cause a bad, acid- like taste in the mouth. Avoid certain foods and drinks as told by your health care provider. Take igdt-ged-opkhrll and prescription medicines only as told by [...] provider. Document Revised: 05/17/2021 Document Reviewed: 05/17/2021 [employer] Patient Education 2022 [employer]. 11/23/2023 14:46:54 BMI for Adults BMI for Adults What is BMI? Body mass index (BMI) is a number that is calculated from a person's weight and height. BMI can help estimate how much of a person's weight is composed of fat. BMI does not measure body fat directly.Rather, it is an alternative to procedures that [...] your height. Both height and weight are measured,and the BMI is calculated from those numbers. This can be done either in [place]anese (U.[place] or metric measurements. Note that charts and online BMI calculators are available to help you find your BMI quickly and easily without having to do these calculations yourself. To calculate your BMI in [place]anese ([place] measurements: 1.Measure your weight in pounds [...] inches squared measurement is 70 inches x 70inches, which equals 4,900 inches squared. 4.Divide the [...] Centers for Disease Control and Prevention: www.cdc.gov [place] Heart Association: www.heart.org National Heart, Lung, and Blood Wagoner: www.nhlbi.nih.gov Summary Body mass index (BMI) is a number that is calculated from a person's weight and height. BMI may help estimate how much of a person's weight is composed of fat. BMI can help identify thosewho may be at higher risk for certain medical problems. BMI can be measured using Bhutanese measurements or metric measurements. BMI charts are used to identify whether you are underweight, normal weight, overweight, or obese. This information is not intended to replace advice given to you by your health care provider. Make sure you discuss any questions you have with your health care provider. Document Revised: 08/03/2020 Document Reviewed: 06/10/2020 [employer] Patient Education 2022 [employer]. Follow Up Care 10/23/2023 11:17:39 With:Ellen Carlos Address: [address] [place] [address] [place] [address]- When:Within 6 Month(s) Comments:[facility] 11-28-2023 Hospital Discharge instructions Patient Education 10/22/2023 17:21:05 [...] about supplements that relieve gas caused by high-fiberfoods. Give your child gas-relief supplements only as told by your child's health care provider. General instructions Give your child hitf-yfu-eiogmbq and prescription medicines only as told by [...] provider. Document Revised: 12/20/2021 Document Reviewed: 12/20/2021 [employer] Patient Education 2022 [employer] 10/22/2023 17:21:04 Abdominal Bloating Abdominal Bloating When [...] drinks. ?Hard candy. ?Chewing gum. Medicines Take envc-xwm-duckoay and prescription medicines only as told by [...] provider. Document Revised: 06/13/2021 Document Reviewed: 06/13/2021 [employer] Patient Education 2022 [employer]. Follow Up Care 10/21/2023 09:45:24 With:Daquan GRANADOS, Ellen Bonilla Address: [address] [place] [address], [place] [address]- When:Within 1 Month(s) Comments:f/u flatulence and GERD [facility] 10-27-2023 Evaluation note* Encounter Date Diagnosis Assessment Notes Treatment Notes Treatment Clinical Notes Aug, Obstructive sleep apnea (adult) (pediatric) (ICD-10 - G47.33) Fortunately, the patient is using and benefiting from treatment. We do not have a download to review as patient's machine has stopped transmitting data, however pt reports good control of her AHI with current pressures so we will not make any changes at this time. We will submit a request for a newmachine today as her machine's motor has exceeded life expectancy, an order was placed to have this completed, as well as a prescription for new supplies throughout the year. She was encouraged to continue to use her machine nightly, throughout the entire night and for naps as this does provide clinical benefit. We will anticipate a 31-90 day visit after pt receives new machine. Aug,MI 40.0-44.9, adult (ICD-10 - Z68.41)Pt's weight is mostly unchanged since last OV. Weight reduction is broadly beneficial and can have s ignificant positive effects on sleep apnea severity Aug,HTN (hypertension) (ICD-10 - I10)Positive effects of controlled SATURNINO and hypertension were reviewed. Control of sleep apnea will frequently have a positive effect on blood pressure control, and may additionally reduce blood pressure lability. She continues to follow with her PCP and states that it is well controlled. Aug,OtherCall if any questions or problems. For Sleep Apnea: Patient is advised to work on healthy diet choices and appropriate servings, weight control, regular exercise as directed, and reduce fat intake. Use machine regularly, and keep up with mask changes as needed. Call if problems with mask toleration, increased sleepiness, or poor response to treatment. Take medication as prescribed, keep follow upappointments, get any testing that's been ordered in a timely fashion. Do not smoke. [employer] Other 09-21-2022 Evaluation note* Encounter Date Diagnosis Assessment Notes Treatment Notes Treatment Clinical Notes Jul, Obstructive sleep apnea (adult) (pediatric) (ICD-10 - G47.33) Fortunately, the patient is using and benefiting from treatment. Download was reviewed with patient, Current pressure is controlling apnea well, And we will make no changes at this time. A prescription was sent to the [facility] for new supplies throughout the year. She was encouraged to continue to use her machine nightly, throughout the entire night and for naps as this does provide clinical benefit. She will follow-up in the sleep clinic in 1 year or sooner if problems. Jul,MI 40.0-44.9, adult (ICD-10 - Z68.41)We discussed the benefits of weight control as [...] have substantial positive effects on sleep apnea severity . Jul,HTN (hypertension) (ICD-10 - I10)Positive effects of controlled SATURNINO and hypertension were reviewed. Control of sleep apnea will frequently have a positive effect on blood pressure control, and may additionally reduce blood pressure lability. Jul,therCall if any questions or problems. For Sleep Apnea: Patient is advised to work on healthy diet choices and appropriate servings, weight control, regular exercise as directed, and reduce fat intake. Use machine regularly, and keep up with mask changes as needed. Call if problems with mask toleration, increased sleepiness, or poor response to treatment. Take medication as prescribed, keep follow upappointments, get any testing that's been ordered in a timely fashion. Do not smoke. [employer] Other 06-27-2022 Evaluation + Plan noteExtracted from:Title: VascularAuthor:Haley Wade LDate:05/21/22 Referral to Lymphedema Joby girard faxed to Marissa @ [facility] ([phone]) Verified with Marissa referral was received & [...] w/CAD if perf and 3D Paddy 04/11/22 [facility]05-17-2022 Hospital Discharge instructions Patient Education 04/10/2022 [...] height. This can be done either in [place] ([place] or metric measurements. Note that charts are available to help you find your BMI quickly and easily without having to do these calculations yourself. To calculate your BMI in [place] ([place] measurements, your health care provider will: [...] medical problems. BMI can be measured using Bhutanese measurements or metric measurements. To interpret your [...] 07/23/2005 Document Revised: 10/24/2018 Document Reviewed: 09/24/2018 [employer] Patient Education 2020 [employer]. 04/10/2022 13:05:14 Dyslipidemia Dyslipidemia Dyslipidemia is an [...] quitting, ask your health care provider. Take vtma-chi-fexisqu and prescription medicines only as told by [...] 11/16/2014 Document Revised: 07/06/2019 Document Reviewed: 06/12/2019 [employer] Patient Education 2020 [employer]. Follow Up Care 03/15/2022 14:47:35 With:Rupa RODRIGUEZ CNP Address: [address] [address]- When:Within 1 Month(s) [facility] 11-08-2021 Evaluation + Plan note Future Scheduled Tests Laboratory* HgbA1c 10/02/21 * Vitamin D 25 Hydroxy 10/02/21 * Comprehensive Metabolic Panel 10/02/21 * Lipid Panel 10/02/21 Radiology* BD Bone Density DEXA 05/22/21 * MA Mamm Screen w/CAD if perf and 3D Paddy 04/10/22 [facility] 11-08-2021 Evaluation + Plan note Future Scheduled Tests Laboratory* HgbA1c 10/02/21 * Vitamin D 25 Hydroxy 10/02/21 * Comprehensive Metabolic Panel 10/02/21 * Lipid Panel 10/02/21 Radiology* US LE Venous Duplex Bilateral 06/06/22 * MA Mamm Screen w/CAD if perf and 3D Paddy 04/10/22 * MA Mamm Screen w/CAD if perf and 3D Paddy [facility] Appointment Date:03/27/2023 08:20:00 AM Scheduled Provider:Ellen Carlos Location:[facility] Appointment Type: Open Future Scheduled Tests Radiology* US LE Venous Duplex Bilateral 06/06/22 * MA Mamm Screen w/CAD if perf and 3D Paddy 04/10/22 * MA Mamm Screen w/CAD if perf and 3D Paddy 04/11/22 [facility] Evaluation + Plan note Future Appointments Appointment Date:04/01/2023 08:00:00 AM Scheduled Provider: Location:[facility] Appointment Type: Medicare Wellness Subsequent Appointment Date:03/30/2024 08:00:00 AM Scheduled Provider:Ellen Carlos Location:[facility] Appointment Type: Preventative Visit Future Scheduled Tests Laboratory* HgbA1c 03/27/23 Radiology* MA Mamm Screen w/CAD if performed bilat 03/27/23 * Echo Transthoracic Complete 03/27/23 * BD Bone Density DEXA 03/27/23 * US LE Venous Duplex Bilateral 06/06/22 * MA Mamm Screen w/CAD if perf and 3D Paddy 04/10/22 * MA Mamm Screen w/CAD if perf and 3D Paddy [facility]11[facility] App[facility]ments Appointment Date:01/29/2024 08:00:00 AM Scheduled Provider: Location:[facility] Appointment Type: Medicare Wellness Subsequent Appointment Date:03/30/2024 08:00:00 AM Scheduled Provider:Ellen Carlos Location:[facility] Appointment Type:FM Preventative Visit Future Scheduled Tests Laboratory* HgbA1c 03/27/23 Radiology* MA Mamm Screen w/CAD if performed bilat 03/27/23 * BD Bone Density DEXA 03/27/23 * US LE Venous Duplex Bilateral 06[facility]06/22 [facility] Future App[facility]ments Appointment Date:11/26/2023 09:00:00 AM Scheduled Provider:Ellen Carlos Location:[facility] Appointment Type:FM Open Appointment Date:01/29/2024 08:00:00 AM Scheduled Provider: Location:[facility] Appointment Type: Medicare Wellness Subsequent Appointment Date:03/30/2024 08:00:00 AM Scheduled Provider:Ellen Carlos Location:[facility] Appointment Type: Preventative Visit Future Scheduled Tests Laboratory* HgbA1c 03/27/23 Radiology* MA Mamm Screen w/CAD if performed bilat 03/27/23 * BD Bone Density DEXA 03/27/23 [facility] Evaluation + Plan note Future Appointments Appointment Date:01/29/2024 08:00:00 AM Scheduled Provider: Location:[facility] Appointment Type: Medicare Wellness Subsequent Appointment Date:03/30/2024 08:00:00 AM Scheduled Provider:Ellen Carlos Location:[facility] Appointment Type: Preventative Visit Future Scheduled Tests Laboratory* HgbA1c 03/27/23 Radiology* BD Bone Density DEXA 03/27/23 [facility] Evaluation + Plan note Future Appointments Appointment Date:03/30/2024 08:00:00 AM Scheduled Provider:Ellen Carlos Location:[facility] Appointment Type:FM Preventative Visit Appointment Date:01/29/2025 09:30:00 AM Scheduled Provider: Location:[facility] Appointment Type: Medicare Wellness Subsequent Future Scheduled Tests Laboratory* HgbA1c 03/27/23 * HCV Antibody RFX to Quant PCR 01/29/24 Radiology* BD Bone Density DEXA 03/27/23 [facility] Evaluation + Plan note Future Appointments Appointment Date:03/30/2024 08:00:00 AM Scheduled Provider:Ellen Carlos Location:[facility] Appointment Type: Preventative Visit Appointment Date:01/29/2025 09:30:00 AM Scheduled Provider: Location:[facility] Appointment Type: Medicare Wellness Subsequent Future Scheduled Tests Laboratory* HCV Antibody RFX to Quant PCR [facility]29/24 [facility]ments Appointment Date:10/19/2024 08:00:00 AM Scheduled Provider:Ellen Carlos Location:[facility] Appointment Type: Open Appointment Date:01/29/2025 09:30:00 AM Scheduled Provider: Location:[facility] Appointment Type:FM Medicare Wellness Subsequent Future Scheduled Tests Laboratory* HgbA1c 04/08/24 * HCV Antibody RFX to Quant PCR 01/29/24 * Vitamin D 25 Hydroxy 04/08/24 * Comprehensive Metabolic Panel 04/08/24 * Lipid Panel 04/08/24 [facility] Evaluation + Plan note Future Appointments Appointment Date:10/19/2024 08:00:00 AM Scheduled Provider:Ellen Carlos Location:[facility] Appointment Type: Open Appointment Date:01/29/2025 09:30:00 AM Scheduled Provider: Location:[facility] Appointment Type:FM Medicare Wellness Subsequent Future Scheduled Tests Laboratory* HgbA1c 04/08/24 * HCV Antibody RFX to Quant PCR 01/29/24 * Vitamin D 25 Hydroxy 04/08/24 * Comprehensive Metabolic Panel 04/08/24 * Lipid Panel 04/08/24 Radiology* MA Mamm Screen w/CAD if perf and 3D Paddy [facility] App[facility]ments Appointment Date:10/28/2024 08:40:00 AM Scheduled Provider:Ellen Carlos Location:[facility] Appointment Type: Open Appointment Date:01/29/2025 09:30:00 AM Scheduled Provider: Location:[facility] Appointment Type:FM Medicare Wellness Subsequent Diagnostic Tests Pending * HCV Antibody RFX to Quant PCR 10/23/24 Future Scheduled Tests Radiology* MA Mamm Screen w/CAD if perf and 3D Paddy 04/24/24 [facility] evaluation + Plan note Future Appointments Appointment Date:01/29/2025 09:30:00 AM Scheduled Provider: Location:[facility] Appointment Type: Medicare Wellness Subsequent Appointment Date:04/27/2025 08:40:00 AM Scheduled Provider:Ellen Carlos Location:[facility] Appointment Type: Open Future Scheduled Tests Laboratory* Vitamin D 25 Hydroxy 10/28/24 * Comprehensive Metabolic Panel 10/28/24 * Lipid Panel 10/28/24 Radiology* MA Mamm Screen w/CAD if perf and 3D Paddy 04/24/24 [facility] Evaluation + Plan note Future Appointments Appointment Date:04/27/2025 09:20:00 AM Scheduled Provider:Tayler Muller Location:[facility] Appointment Type: Open Appointment Date:02/02/2026 09:30:00 AM Scheduled Provider: Location:[facility] Appointment Type:FM Medicare Wellness Subsequent Future Scheduled Tests Radiology* MA Mamm Screen w/CAD if perf and 3D Paddy 04/24/24 [facility] evaluation noteNo assessment information available [facility] Work Phone: Evaluation note* Diagnosis Primary [...] (peripheral) insufficiency [facility] Diagnosis Achilles rupture, right, initial encounter- Primary Ankle contracture, right [facility] Diagnosis Achilles rupture, right, initial encounter- Primary [facility]* Diagnosis Achilles rupture, right, initial encounter- Primary Venous insufficiency Unspecified venous (peripheral) insufficiency Right Achilles tendinitis [facility]* Diagnosis Achilles rupture, right, initial encounter- Primary [facility]* Diagnosis Primary osteoarthritis of knees, bilateral- Primary [facility] Diagnosis Pain due to onychomycosis of toenails of both feet- Primary Venous insufficiency Unspecified venous (peripheral) insufficiency [facility]* Diagnosis Achilles rupture, right, initial encounter- Primary Right Achilles tendinitis documented [facility]* Diagnosis Pain due to onychomycosis of toenails of both feet- Primary Venous insufficiency Unspecified venous (peripheral) insufficiency Right Achilles tendinitis [facility]* Diagnosis Right shoulder pain, unspecified chronicity- Primary Impingement syndrome of right shoulder 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 documented [facility]* Diagnosis Impingement syndrome of right shoulder- Primary 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 documented [facility]* Diagnosis Primary osteoarthritis of knees, bilateral Pain due to onychomycosis of toenails of both feet- Primary Venous insufficiency Unspecified venous (peripheral) insufficiency [facility]* Diagnosis Pain due to onychomycosis of toenails of both feet- Primary Venous insufficiency Unspecified venous (peripheral) insufficiency [facility]* Diagnosis Pain due to onychomycosis of toenails of both feet- Primary Venous insufficiency Unspecified venous (peripheral) insufficiency [facility]* Diagnosis Primary osteoarthritis of knees, bilateral- Primary [facility]* Diagnosis Pain due to onychomycosis of toenails of both feet- Primary Venous insufficiency Unspecified venous (peripheral) insufficiency [facility] N[facility]ative - Reported* Type Description Date Medical History SATURINNO (obstructive sleep apnea) Medical HistoryHypertensionMedical HistoryLymphedema b/l legs SocialEars Other Hospital course Narrative No data available for this section [facility] Discharge instructions No data available for this section [facility] No data available for this section [facility] HospitalReason for referral (narrative) Referred by: Noman ALLISON, Isela Johnson [facility] Chief Complaint and Reason for Visit Chief Complaint SATURNINO 1 YEAR Chief Complaint Admit Date SATURNINO/ ANNUAL March 02, 2025 10:1 7am Advance Directives No Advanced Directives Records Found Advance Directive Response Recorded Date/ Time Advance Directives No October 03, 2017 2:53pm Summary Purpose Family History No Family History Records Found Relationship Condition Age at Onset Recorded Date/T thanh mother Unknown Reason for Referral SpecialtyDiagnoses / ProceduresReferred By ContactReferred To Contact Diagnoses Achilles rupture, right, initial encounter Danish Carballo, DPM FACFAS [address] [place] [address] Referral IDStatusReasonStart DateExpiration DateVisits RequestedVisits [id number] / ProceduresReferred By Contact Referred To ContactOrthopaedic Surgery Diagnoses Primary osteoarthritis of knees, bilateral Procedures L Inj/Asp: bilateral knee Giuliano Garcia PA [address] [place] [address] Referral IDStatusReasonStart DateExpiration DateVisits RequestedVisits [id number]/2/20247/ Additional Source Comments Care Team (unrecognized sect ion and content) Team Status: Inactive Member Role Status Dates Rupa Rodriguez Primary Care Provider Active Dipti Barajas NPAttending ProviderActive Team Status: Active Member Role Status Dates Rupa Rodriguez Primary Care Provider Active Team MemberRelationshipSpecialtyStart DateEnd Date Bello Davis MD [address] [place] [address] PCP - GeneralInternal Medicine05/07/23am MemberRelationshipSpecialtyStart Date End Date Bello Davis MD [address] [place] [address] PCP - [facility]05/07/23 MemberRelationshipSpecialtyStart Date End Date Bello Davis MD [address] [place] [address] PCP - [facility]05/07/23 MemberRelationshipSpecialtyStart Date End Date Bello Davis MD [address] [place] [address] [facility]23 MemberRelationshipSpecialtyStart Date End Date Bello Davis MD [address] [place] [address] [facility]05/07/23Team MemberRelationshipSpecialtyStart Date End Date Bello Davis MD [address] [place] [address] [facility] - [facility]05/07/23Te MemberRelationshipSpecialtyStart Date End Date Bello Davis MD [address] [place] [address] PCP - GeneralInternal Medicine05/07/23Team MemberRelationshipSpecialtyStart Date End Date Bello Davis MD [address] [place] [address] PCP - GeneralInternal Medicine05/07/23 Ellen Butt NP [address]; [place] [id number] Referring Physicianmi Oxgodqsv35/23/24Team MemberRelationshipSpecialtyStart DateEnd Date Bello Davis MD [address] [place] [id number] PCP - GeneralInternal Medicine05/07/23 Ellen Butt, NOEMI [address] [place] [phone] Referring PhysicianFami Xiglcpvj77/23/24Team MemberRelationshipSpecialtyStart DateEnd Date Bello Davis MD [address] [place] [id number] PCP - GeneralInternal Medicine05/07/23 Ellen Butt, NOEMI [address]; [place] [phone] Referring PhysicianFami Kiqcxjpy76/23/24Team MemberRelationshipSpecialtyStart DateEnd Date Bello Davis MD [address] [place] [id number] PCP - GeneralInternal Medicine05/07/23 Ellen Butt, NOEMI [address] [facility] [address] [address] Referring PhysicianFamily Kycqzesx37/23/24Team MemberRelationshipSpecialtyStart DateEnd Date Bello Davis MD [address] [place] [address] PCP - GeneralInternal Medicine05/07/23 Ellen Butt NP [address] [address] Referring PhysicianMorgan Medical Center09/16/24Team MemberRelationshipSpecialtyStart DateEnd Date Bello Davis MD [address] [place] [address] PCP - GeneralInternal Medicine05/07/23Team MemberRelationshipSpecialtyStart Date End Date Bello Davis MD [address] [place] [address] PCP - GeneralInternal Medicine05/07/23Team MemberRelationshipSpecialtyStart Date End Date Bello Davis MD [address] [place] [address] PCP - GeneralInternal Medicine05/07/23Team MemberRelationshipSpecialtyStart Date End Date Bello Davis MD [address] [place] [address] PCP - GeneralInternal Medicine05/07/23 Ellen Butt NP [address] [place] [phone] Referring PhysicianFami Kndjuuhe61/23/24Team MemberRelationshipSpecialtyStart DateEnd Date Bello Davis MD [address] [place] [address] PCP - GeneralInternal Medicine05/07/23 Ellen Butt NP [address] [place] [phone] Referring Physicianmi Bbopklgl07/23/24Team MemberRelationshipSpecialtyStart DateEnd Date Bello Davis MD [address] [place] [id number] PCP - GeneralInternal Medicine05/07/23 Ellen Butt NP [address] [facility] [address]; [place] [phone] Referring PhysicianFami Smybcjoy51/23/24Team MemberRelationshipSpecialtyStart DateEnd Date Bello Davis MD [address] [place] [address] PCP - GeneralInternal Medicine05/07/23 Ellen Butt NP [address]; [address] [address] Referring PhysicianFami Brpahsgt90/23/24 Team Status: Active Member Role Status Dates Ellen Butt NP-C Primary Care Provider Act del Team Status: Inactive Member Role Status Dates Ellen Butt NP-C Primary Care Provider Act del Start: March 02, 2025 End: March 02, 2025Peeder Barajas NPAttending ProviderActiveStart: March 02, 2025 End: March 02, 2025Team MemberRelationshipSpecialtyStart DateEnd Date Bello Davis MD [address] [place] [address] PCP - GeneralInternal Medicine05/07/23 Ellen Butt NP [address] [facility] [address]; [address] [address] Referring [facility]icianLahey [facility] Mrrgutww66/23/24Team MemberRelationshipSpecialtyStart DateEnd Date Bello Davis MD [address] [place] [id number] PCP - GeneralInternal Medicine05/07/23 Ellen Butt NP [address] [facility] [address]; [address] [address] Referring PhysicianFami Zvxryvxj48/23/24Team MemberRelationshipSpecialtyStart DateEnd Date Bello Davis MD [address] [place] [address] PCP - GeneralInternal Medicine05/07/23 Ellen Butt NP [address] [facility] [address]; [address] [address] Referring PhysicianFami Flaemfsx08/23/24Team MemberRelationshipSpecialtyStart DateEnd Date Bello Davis MD [address] [facility] [address] [place] [id number] PCP - GeneralInternal Medicine05/07/23 Ellen Butt NP [address] [facility] [address] [place] [address] Referring PhysicianmiPiedmont Newnan09/16/24Team MemberRelationshipSpecialtyStart DateEnd Date Bello Davis MD [address] [facility] [address] [place] [id number] PCP - GeneralInternal Medicine05/07/23 Ellen Butt NP [address] [facility] [address] [place] [address] Referring PhysicianmiPiedmont Newnan09/16/24Team MemberRelationshipSpecialtyStart DateEnd Date Bello Davis MD [address] [place] [id number] PCP - GeneralInternal Medicine05/07/23 Ellen Butt NP [address] [facility] [address] [place] [phone] Referring PhysicianFami Uiirqttd24/23/24 Goals (unrecognized section and content) Goals may be documented in a n alternate section REASON FOR VISIT (unrecogniz ed section and content) ReasonCommentsOsteoarthritisReasonCommentsFoot/ankle Post-opWK 1 post opReason Onset DateCommentsMedication Qudqoegs26/11/2024ReasonCommentsFoot/ankle Post-op WK 2 post opReasonCommentsFoot/ankle Post-opWK 3 post opReasonCommentsDM Foot CareDm NailsReasonCommentsFoot/ankle Post-opWK 5 post opReasonCommentsFoot/ankle Post-opWK 9 post opReasonCommentsAchilles [id number] F/U achillesReasonComments Consent Or InstructionsSurgery consultReasonCommentsConsent Or Instructions Surgery consult: RT achilles repairReasonCommentsFollow-upReasonCommentsDM Foot CareDm nail careReasonCommentsFoot/ankle Post-opFu RT Achilles tendonReason CommentsPainReasonCommentsFollow-upReasonCommentsPainReasonCommentsToenail Care Non dm nail careReasonCommentsToenail CareReasonCommentsDM Foot Care INFORMATION SOURCE (unrecogn ized section and content) DATE CREATED AUTHOR 08/30/2022 [facility] DATE CREATED AUTHOR AUTHOR'S ORGANIZ ATION 09/28/2023 [facility] DATE CREATED AUTHOR AUTHOR'S ORGANIZ ATION 10/25/2024 [facility] DATE CREATED AUTHOR AUTHOR'S ORGANIZ ATION 10/30/2024 [facility] DATE CREATED AUTHOR AUTHOR'S ORGANIZ ATION 04/25/2025 [facility] DATE CREATED AUTHOR AUTHOR'S ORGANIZ ATION 04/28/2025 [facility] DATE CREATED AUTHOR AUTHOR'S ORGANIZ ATION 09/23/2025 [facility] DATE CREATED AUTHOR AUTHOR'S ORGANIZ ATION 09/24/2025 [facility] EPIC FOR RECORDS PERTAINING TO PATIENTS WHO ARE [...] BE BASED ON THE PRIMARY CLINICAL RECORDS. [facility]. provides no warranty or guarantee of the accuracy or completeness of information in this document.
--- NOTE | 2025-10-04 10:14 | MM_ITS ---
Patient Name: JOSE DAI MR#: [id number] : 1950 Exam Date: 10/04/2025 Ordering Doctor: RHIANNON RAUSCH . RADIOLOGY REPORT PROCEDURE: MM TOMOSYNTHESIS SCREENING BI COMPARISON: MM TOMOSYNTHESIS SCREENING BI, 10/02/2024. MM TOMOSYNTHESIS SCREENING BI, 08/22/2023. MG MAMM SCREEN 3D BRIANNE CAD, 08/09/2022. MG MAMM BRIANNE SCRN W CAD DIG, 11/19/2013. INDICATIONS: Screening Calculator Name NCI Breast Cancer Risk Assessment Tool 5 Year Breast Cancer Risk 1.40% Lifetime Breast Cancer Risk 3.00% Personal Breast Cancer No Personal Ovarian Cancer No Treatments None Family Cancers None LOCATION: [facility] BREAST COMPOSITION: There are scattered areas of fibroglandular density. FINDINGS: RIGHT BREAST: No significant suspicious finding. Similar focal asymmetries are present with benign-appearing calcifications. LEFT BREAST: No significant suspicious finding. Benign-appearing lymph nodes are noted along the chest wall with similar focal asymmetries. DIAGNOSTIC CATEGORY 2--BENIGN FINDING. NO CHANGE FROM COMPARISON. RECOMMENDATIONS: ROUTINE MAMMOGRAM AND CLINICAL EVALUATION IN 12 MONTHS. Dictated by: Juan Antonio Hills MD on 10/04/2025 at 13:23 Approved by: Juan Antonio Hills MD on 10/04/2025 at 13:28
== END 2025-10-04 10:09 | disposition home or self-care (01) ==
LOC: RAD 10:08
PROVIDERS: PCP Nurse Practitioner Family; Visit Provider Nurse Practitioner
DX: Z12.31 Encounter for screening mammogram for malignant neoplasm of breast (principal); E28.39 Other primary ovarian failure; M85.88 Other specified disorders of bone density and structure, other site
CPT/HCPCS: 77063; 77067; 77080